=== PATIENT | female | born 1955 | race Caucasian/White ===

== ENCOUNTER → 2017-10-21 10:04 | Outpatient (CLI) | payer OTHER, SELFPAY ==
--- NOTE | 2017-10-21 10:09 | RAD_ITS ---
STUDY: X-RAY - RIGHT SHOULDER REASON FOR EXAM: Female, 62 years old. History of inflammatory polyarthropathy. TECHNIQUE: 4 view(s) of the shoulder. COMPARISON: None. FINDINGS: Normal glenohumeral articulation. There is hypertrophic osteoarthrosis of the acromioclavicular joint with inferior osseous spur formation. Normal acromion. Normal humeral head and visualized proximal humerus. There is periarticular soft tissue calcification consistent with a calcific tendinitis. Normal visualized pulmonary apex. RAD/Shoulder min 2 Views IMPRESSION: Calcific peritendinitis. Electronically Signed: Corbin Zelaya MD at 13:09 EDT Tel [phone], Service support ,
--- NOTE | 2017-10-21 10:09 | RAD_ITS ---
STUDY: X-RAY - LEFT SHOULDER REASON FOR EXAM: Female, 62 years old. Inflammatory polyarthropathy. TECHNIQUE: 4 view(s) of the shoulder. COMPARISON: None. FINDINGS: Normal glenohumeral articulation. There is degenerative arthrosis of the acromioclavicular joint without inferior osseous spur formation. Normal acromion. Normal humeral head and visualized proximal humerus. There is periarticular soft tissue calcification consistent with a calcific tendinitis. Normal visualized pulmonary apex. RAD/Shoulder min 2 Views IMPRESSION: Findings in keeping with calcific tendinitis. Electronically Signed: Corbin Zelaya MD at 13:02 EDT Tel [phone], Service support ,
== END ==
PROVIDERS: Family Provider Family Medicine; PCP Family Medicine; Visit Provider Internal Medicine Rheumatology
DX: M06.4 Inflammatory polyarthropathy (principal); M15.9 Polyosteoarthritis, unspecified; M47.897 Other spondylosis, lumbosacral region; I10 Essential (primary) hypertension; G47.33 Obstructive sleep apnea (adult) (pediatric); Z79.899 Other long term (current) drug therapy
CPT/HCPCS: 73030

== ENCOUNTER → 2018-04-17 12:31 | Outpatient (CLI) | payer OTHER, SELFPAY ==
[2018-04-17 14:40] LABS: Absolute Lymphocyte Count 1.82 X10^3/ul (0.83-4.51); Basophil# 0.02 X10^3/uL; Basophil% 0.3 % (0-1); Eosinophil# 0.26 X10^3/uL; Eosinophils% 3.5 % (0-5); Hematocrit 35.6 % (37-47); Hemoglobin 11.5 g/dl (12.0-15.0); Lymphocyte # 1.82 X10^3/ul (4.0); Lymphocyte % 24.2 % (19-41); Mean Corp Hgb Conc 32.3 g/gl (32-36); Mean Corpuscular Hgb 30.7 pg (27.0-32.0); Mean Corpuscular Volume 95.2 fL (81-99); Mean Platelet Vol. 9.8 fl (6.2-12.0); Monocyte# 0.45 X10^3/uL; Neutrophil # 4.96 X10^3/uL (2.7-7.7); Neutrophil % 65.9 % (47-70); POSITIVE COUNT NO; POSITIVE DIFFERENTIAL NO; POSITIVE MORPHOLOGY NO; Platelet Count 256 K/mm3 (150-450); RBC Distribution Width CV 15.1 % (11.6-14.6); RBC Distribution Width SD 50.2 fl (35.1-43.9); Red Blood Count 3.74 M/mm3 (4.2-5.4); White Blood Count 7.5 K/mm3 (4.4-11.0)
[2018-04-17 14:54] LABS: ALB/GLOB Ratio 1.1 RATIO (0.9-2.4); AST(SGOT) 21 U/L (15-37); Alanine Aminotransfer ALT/SGPT 20 U/L (13-56); Albumin, Serum 3.9 g/dL (3.2-5.0); Alkaline Phosphatase 91 U/L (45-117); Anion Gap 7 (5-15); BUN 14 mg/dL (7-18); BUN/Creat Ratio 22.1 RATIO (10-20); Chloride 105 mmol/L (98-107); Creatinine, Serum 0.63 mg/dL (0.55-1.02); EST Glomerular Filtration Rate 101 mL/min (>60); Est Glom Filt Rate - Afr Amer 122 mL/min (>60); Globulin 3.5 g/dL (2.2-4.2); Glucose 88 mg/dL (74-106); Potassium 3.8 mmol/L (3.5-5.1); Protein, Total 7.4 g/dL (6.4-8.2); Sodium Level 140 mmol/L (136-145)
== END ==
PROVIDERS: Family Provider Family Medicine; PCP Family Medicine; Referring Provider Internal Medicine Rheumatology; Visit Provider Internal Medicine Rheumatology
DX: M06.4 Inflammatory polyarthropathy (principal); M15.9 Polyosteoarthritis, unspecified; M47.897 Other spondylosis, lumbosacral region; I10 Essential (primary) hypertension; G47.33 Obstructive sleep apnea (adult) (pediatric); Z79.899 Other long term (current) drug therapy
CPT/HCPCS: 36415; 80053; 85025

== ENCOUNTER → 2018-07-03 08:32 | Outpatient (CLI) | payer OTHER, SELFPAY ==
[2018-07-03 10:13] LABS: Absolute Lymphocyte Count 1.36 X10^3/ul (0.83-4.51); Basophil# 0.02 X10^3/uL; Basophil% 0.5 % (0-1); Eosinophil# 0.12 X10^3/uL; Eosinophils% 3.1 % (0-5); Hematocrit 38.1 % (37-47); Hemoglobin 12.4 g/dl (12.0-15.0); Lymphocyte # 1.36 X10^3/ul (4.0); Lymphocyte % 35.1 % (19-41); Mean Corp Hgb Conc 32.5 g/gl (32-36); Mean Corpuscular Hgb 30.1 pg (27.0-32.0); Mean Corpuscular Volume 92.5 fL (81-99); Mean Platelet Vol. 9.9 fl (6.2-12.0); Monocyte# 0.33 X10^3/uL; Monocyte% 8.5 % (0-10); Neutrophil # 2.03 X10^3/uL (2.7-7.7); Neutrophil % 52.5 % (47-70); Platelet Count 249 K/mm3 (150-450); RBC Distribution Width CV 15.6 % (11.6-14.6); RBC Distribution Width SD 50.6 fl (35.1-43.9); Red Blood Count 4.12 M/mm3 (4.2-5.4); White Blood Count 3.9 K/mm3 (4.4-11.0)
[2018-07-03 10:19] LABS: POSITIVE COUNT NO; POSITIVE DIFFERENTIAL NO; POSITIVE MORPHOLOGY NO
[2018-07-03 10:31] LABS: ALB/GLOB Ratio 1.1 RATIO (0.9-2.4); AST(SGOT) 17 U/L (15-37); Alanine Aminotransfer ALT/SGPT 16 U/L (13-56); Alkaline Phosphatase 78 U/L (45-117); Anion Gap 11 (5-15); BUN 12 mg/dL (7-18); BUN/Creat Ratio 18.5 RATIO (10-20); Calcium,Total 9.1 mg/dL (8.5-10.1); Chloride 107 mmol/L (98-107); Creatinine, Serum 0.65 mg/dL (0.55-1.02); EST Glomerular Filtration Rate 98 mL/min (>60); Est Glom Filt Rate - Afr Amer 119 mL/min (>60); Globulin 3.5 g/dL (2.2-4.2); Glucose 85 mg/dL (74-106); Potassium 3.5 mmol/L (3.5-5.1); Protein, Total 7.5 g/dL (6.4-8.2); Sodium Level 144 mmol/L (136-145)
== END ==
PROVIDERS: Family Provider Family Medicine; PCP Family Medicine; Referring Provider Internal Medicine Rheumatology; Visit Provider Internal Medicine Rheumatology
DX: M06.4 Inflammatory polyarthropathy (principal); M15.9 Polyosteoarthritis, unspecified; M47.897 Other spondylosis, lumbosacral region; I10 Essential (primary) hypertension; G47.33 Obstructive sleep apnea (adult) (pediatric); Z79.899 Other long term (current) drug therapy
CPT/HCPCS: 36415; 80053; 85025

== ENCOUNTER → 2018-10-30 | Outpatient (CLI) | payer OTHER, SELFPAY ==
[2018-10-30 10:51] LABS: Absolute Lymphocyte Count 1.61 X10^3/ul (0.83-4.51); Absolute Neutrophil Count 2.8 X10^3/uL (2.0-7.7); Basophil# 0.02 X10^3/uL; Basophil% 0.4 % (0-1); Eosinophil# 0.07 X10^3/uL; Eosinophils% 1.5 % (0-5); Hematocrit 38.2 % (37-47); Hemoglobin 12.6 g/dl (12.0-15.0); Lymphocyte # 1.61 X10^3/ul (4.0); Lymphocyte % 33.6 % (19-41); Mean Corpuscular Hgb 29.9 pg (27.0-32.0); Mean Corpuscular Volume 90.7 fL (81-99); Mean Platelet Vol. 9.8 fl (6.2-12.0); Monocyte# 0.33 X10^3/uL; Monocyte% 6.9 % (0-10); Neutrophil # 2.76 X10^3/uL (2.7-7.7); Neutrophil % 57.6 % (47-70); Platelet Count 253 K/mm3 (150-450); RBC Distribution Width CV 15.2 % (11.6-14.6); RBC Distribution Width SD 49.4 fl (35.1-43.9); Red Blood Count 4.21 M/mm3 (4.2-5.4); White Blood Count 4.8 K/mm3 (4.4-11.0)
[2018-10-30 11:00] LABS: POSITIVE COUNT NO; POSITIVE DIFFERENTIAL NO; POSITIVE MORPHOLOGY NO
[2018-10-30 12:41] LABS: Free T3 2.7 pg/mL (2.18-3.98); T4 Free Direct 0.74 ng/dL (0.76-1.46); Thyroid Stim Hormone (TSH) 8.15 uIU/mL (0.358-3.74)
[2018-10-30 13:02] LABS: ALB/GLOB Ratio 1.1 RATIO (0.9-2.4); AST(SGOT) 20 U/L (15-37); Alanine Aminotransfer ALT/SGPT 18 U/L (13-56); Albumin, Serum 3.9 g/dL (3.2-5.0); Alkaline Phosphatase 86 U/L (45-117); Anion Gap 7 (5-15); BUN 11 mg/dL (7-18); Calcium,Total 9.1 mg/dL (8.5-10.1); Chloride 105 mmol/L (98-107); Creatinine, Serum 0.74 mg/dL (0.55-1.02); EST Glomerular Filtration Rate 85 mL/min (>60); Est Glom Filt Rate - Afr Amer 102 mL/min (>60); Globulin 3.6 g/dL (2.2-4.2); Glucose 95 mg/dL (74-106); Potassium 3.5 mmol/L (3.5-5.1); Protein, Total 7.5 g/dL (6.4-8.2); Sodium Level 140 mmol/L (136-145)
[2018-10-31 09:40] LABS: Thyroid Peroxidase AB 13 IU/mL (0-34)
== END | disposition home or self-care (01) ==
PROVIDERS: Internal Medicine; Family Provider Family Medicine; PCP Family Medicine; Referring Provider Internal Medicine Rheumatology; Visit Provider Internal Medicine Rheumatology
DX: M06.4 Inflammatory polyarthropathy (principal); M15.9 Polyosteoarthritis, unspecified; M47.897 Other spondylosis, lumbosacral region; I10 Essential (primary) hypertension; G47.33 Obstructive sleep apnea (adult) (pediatric); E03.9 Hypothyroidism, unspecified; Z79.899 Other long term (current) drug therapy
CPT/HCPCS: 36415; 80053; 84439; 84443; 84481; 85025; 86376

== ENCOUNTER 2018-12-29 19:09 | Observation (INO) | payer OTHER, SELFPAY ==
[2018-12-29] VITALS (10 sets, daily range): BP systolic 115–162; BP diastolic 53–75; PULSE 74–79; RESP 12–21; TEMP 36.8–37; O2SAT 95–100; BMI 53.1; BMI 52.8
--- NOTE | 2018-12-29 19:35 | CT_ITS ---
STUDY: CT BRAIN WITHOUT CONTRAST REASON FOR EXAM: Female, 63 years old. Headache, weakness RADIATION DOSAGE (If Supplied By Facility): CTDIvol = ( 44.99 ) mGy, DLP = ( 779.24 ) mGycm TECHNIQUE: Transaxial CT imaging of the brain was performed without administration of intravenous contrast material. Individualized dose optimization techniques were used for this CT. COMPARISON: No relevant priors. FINDINGS: Normal soft tissue structures. Normal calvarium. Normal size ventricles and extra-axial spaces for the patient's age. Normal white matter tracts of the cerebral hemispheres. Normal basal ganglia and thalami. Normal brainstem. Normal cerebellum. There is no intracranial hemorrhage. There are no findings of an acute ischemic infarction. Normal visualized paranasal sinuses. CT/Brain/Head without Contrast IMPRESSION: Normal unenhanced CT scan of the brain. If there is still clinical concern for acute infarct MRI brain follow-up would be recommended. Electronically Signed: Max Patterson, at 20:50 EDT Tel , Service support ,
--- NOTE | 2018-12-29 19:35 | EKG12_ITS ---
Test Reason : CP Blood Pressure : / mmHG Vent. Rate : 082 BPM Atrial Rate : 082 BPM P-R Int : 158 ms QRS Dur : 078 ms QT Int : 364 ms P-R-T Axes : 059 040 016 degrees QTc Int : 425 ms Normal sinus rhythm Nonspecific ST abnormality Abnormal ECG Confirmed by JAVIER CHURCH, GORAN ([id number]), electronic news gathering editor ALFONSO WEISS ([id number]) on 01/01/2019 11:44:45 AM Referred By: Kole Stern Confirmed By:GORAN HERRERA MD
[2018-12-29] MEDS: Aspirin 81 MG TAB.CHEW 324 MG PO (19:48)
[2018-12-29 20:03] LABS: Absolute Lymphocyte Count 0.96 X10^3/uL (0.83-4.51); Absolute Neutrophil Count 4.6 X10^3/uL (2.0-7.7); Basophil# 0.01 X10^3/uL; Basophil% 0.2 % (0-1); Eosinophil# 0.07 X10^3/uL; Eosinophils% 1.2 % (0-5); Hematocrit 38.4 % (37-47); Hemoglobin 12.8 g/dL (12.0-15.0); Lymphocyte # 0.96 X10^3/ul (4.0); Lymphocyte % 15.9 % (19-41); Mean Corp Hgb Conc 33.3 g/dL (32-36); Mean Corpuscular Hgb 30.6 pg (27.0-32.0); Mean Corpuscular Volume 91.9 fL (81-99); Mean Platelet Vol. 9.2 fl (6.2-12.0); Monocyte% 6.6 % (0-10); NRBC Flagged by Analyzer 0 % (0-5); Neutrophil # 4.59 X10^3/uL (2.7-7.7); Neutrophil % 75.8 % (47-70); Platelet Count 197 K/mm3 (150-450); RBC Distribution Width CV 14.6 % (11.6-14.6); RBC Distribution Width SD 49.3 fl (35.1-43.9); Red Blood Count 4.18 M/mm3 (4.2-5.4); White Blood Count 6.1 K/mm3 (4.4-11.0)
[2018-12-29 20:22] LABS: Anion Gap 6 (5-15); BUN 14 mg/dL (7-18); BUN/Creat Ratio 20.8 RATIO (10-20); Calcium,Total 8.8 mg/dL (8.5-10.1); Chloride 106 mmol/L (98-107); Creatinine, Serum 0.67 mg/dL (0.55-1.02); EST Glomerular Filtration Rate 94 mL/min (>60); Est Glom Filt Rate - Afr Amer 113 mL/min (>60); Estimated Creatinine Clearance 160.03 ml/min; Glucose 89 mg/dL (74-106); Potassium 3.6 mmol/L (3.5-5.1); Sodium Level 139 mmol/L (136-145)
[2018-12-29 20:29] LABS: Bacteria 0 SEEN /hpf (None Seen); Mucous, Urine 0 SEEN /hpf (<or=2+); Red Blood Cells-Urine 0 SEEN /hpf (0-5); Squamous Epithelial Cells - UA 0 SEEN /hpf (5-10); White Blood Cells 0 SEEN /hpf (0-5)
[2018-12-29 20:30] LABS: Color, Urine Yellow (Yellow); Glucose, Dipstick Normal (Normal); Ketone-Dipstick Negative (Negative); Leukocyte Esterase-Dipstick Negative /ul (Negative); Nitrite-Dipstick Negative (Negative); Occult Blood-Urine Negative /ul (Negative); Protein-Dipstick Negative (Negative); Urine Bilirubin Dipstick Negative (Negative); Urine Clarity Clear (Clear); Urine Urobilinogen Normal (Normal)
--- NOTE | 2018-12-29 20:38 | RAD_ITS ---
STUDY: X-RAY CHEST REASON FOR EXAM: Female, 63 years old. Chest pain TECHNIQUE: AP chest COMPARISON: None. FINDINGS: The lungs are clear and expanded. There is no demonstrated pleural abnormality. There is cardiomegaly. There are degenerative changes of both shoulders. Normal mediastinum and conrado. Normal visualized pulmonary arteries. Normal visualized aortic arch and descending thoracic aorta. Normal visualized thoracic spine. Normal visualized ribs, clavicles, and shoulders. There is no demonstrated abnormality of the visualized soft tissue structures of the upper abdomen. RAD/Chest 1 View (Portable) IMPRESSION: Mild cardiomegaly Electronically Signed: Max Patterson, at 20:52 EDT Tel , Service support ,
--- NOTE | 2018-12-29 21:42 | ED.VISSUMM ---
- ER Visit Summary Date of Service: 12/29/18 Chief Complaint: Chest pain History of Present Illness: The patient is a 63 F with chest pain for a week. It feels like a heaviness. Associated with shortness of breath. Worse with the weather. She also has a headache for several days and reports some dysuria. She had a stress test years ago which was unremarkable. Denies any history of coronary disease. She does report a history of hypertension. Denies smoking. Denies any history of PE or aortic disease. Denies any neurologic symptoms like weakness or numbness or speech changes. Physical Examination: Afebrile and vital signs unremarkable. Alert and oriented. No acute distress. Head and neck atraumatic. Cranial nerves grossly intact. Heart regular rate and rhythm. Lungs clear. Abdomen soft. Extremities nontender. Good strength and sensation. Skin unremarkable. Test Results: EKG showed sinus rhythm at a rate of 82. Nonspecific ST changes. No sign of infarction. CBC, BMP, troponin, urinalysis unremarkable. Chest x-ray showed cardiomegaly. CT brain was normal. Emergency Department Course and Treatment: Patient treated with aspirin. She was placed on a monitor. Her work-up was unremarkable. Patient will meet criteria for observation in the hospital for further cardiac evaluation. She was discussed with the hospitalist and will be observed. Treatment Plan: As above Disposition: Admission Impression: 1. Chest pain 2. Headache This note was generated with [email or web address] software. It may contain incorrect words, spelling, and punctuation that were not noted in review of the chart prior to signing ED Disposition - Plan for ED Patient: Referrals: Nikolay Josue MD [Primary Care Provider] -
[2018-12-29] MEDS: Acetaminophen 500 MG Tablet 1000 MG PO (22:02)
--- NOTE | 2018-12-29 23:13 | PCM.HP.STD ---
Problem List (1) Hypertension Status: Chronic (2) Hypothyroidism Status: Chronic (3) Rheumatoid arthritis Status: Chronic (4) Atypical chest pain Status: Acute (5) Recurrent UTI Status: Chronic History of Present Illness Date of Admission: 12/29/18 Chief Complaint: Headache and chest pain The patient is a 63 year old F with multiple comorbidities as listed above came to ER with chest pain for about 2 to 3 weeks. Feels like heaviness midsternal position without radiation, intermittent comes with exertion and relieved with rest associated with shortness of breath. Patient denies any history of coronary artery disease. She is on Lasix for leg swelling but unclear whether she has history of CHF or not. She also complained of headache which is much better. CT head was done was normal. She also history of recurrent UTI, about 3 times this year and complaint of mild burning micturition and concern of UTI/kidney infection. UA is negative. Fever or chills. In ED, EKG was done and reported as normal sinus rhythm at 82 bpm. First troponin negative. [] Past Medical History Past Medical History (Chronic Problems): Chronic Problems Hypertension (Chronic) Hypothyroidism (Chronic) Rheumatoid arthritis (Chronic) Recurrent UTI (Chronic) Allergies amoxicillin Allergy (Verified 12/29/18 19:14) Rash Home Medications: Ambulatory Orders Medication Instructions Recorded Amlodipine Besylate 1 tab PO DAILY 12/29/18 Folic Acid 2 tab PO DAILY 12/29/18 Furosemide [Lasix] 1 tab PO BREAKFAST 12/29/18 Furosemide [Lasix] 20 mg PO QHS 12/29/18 Hydroxychloroquine [Plaquenil] 1 tab PO BID 12/29/18 Methotrexate Sodium [Methotrexate] 1 tab PO QWEEK 12/29/18 Thyroid [[place] Thyroid] 1 tab PO DAILY 12/29/18 Smoking Status: Never smoker - *Family History Paternal History Items: Heart Disease - of heart disease Review of Systems Constitutional: Reports: Chills. Denies: Fever, Weight Change HEENT: Denies: Head Aches, Sinus Congestion, Sinus Drainage Cardiovascular: Reports: Chest Pain, Chest Tightness, Heaviness. Denies: Palpitations Respiratory: Reports: Shortness of breath upon exertion. Denies: Cough, Shortness of breath at rest, Sputum production Gastrointestinal: Denies: Abdominal Pain, Nausea, Vomiting Genitourinary: Reports: Dysuria - Patient states sometimes her urine back but not very clear. Denies increased frequency or urgency., -. Denies: Frequency, Hesitancy, Urgency Musculoskeletal: Denies: Joint Pain, Joint Tenderness Skin: Denies: Rash, Wounds Neurological: Reports: Balance problems. Denies: Focal weakness, Numbness, Tingling Psychiatric: Denies: Anxiety, Depression, Homicidal Ideations, Suicidal Ideations Hematologic/ Lymphatic: Denies: Easy Bruising, Easy Bleeding VTE Information - Inpt Only VTE Present on Admission: No VTE Mechan Device Prophylaxis: None VTE Pharm Prophylaxis ordered?: Yes Patient Problems: Active and Suspected Problems Atypical chest pain (Acute) - Physical Exam General: Alert, Oriented x3, Cooperative HEENT: Atraumatic, PERRLA, EOMI, Normocephalic Oral: Dry Mucosa Neck: Supple, No JVD, Negative Carotid Bruits Lungs: Clear to auscultation, Normal air movement Cardiovascular: Regular rate, Regular Rhythm, Normal S1, Normal S2, No murmurs Abdomen: Bowel Sounds Present, Soft, Non Tender, Non-Distended, - - No suprapubic tenderness. No renal angle tenderness. Extremities: Capillary Refill Less than 3 Seconds, Edema - Bilateral pedal edema Skin: No rashes, No breakdown Musculoskeletal: No Tenderness to Palpation of Joints or Extremities, Arthritic Changes Neurological: Cranial nerves II-XII grossly intact, Deep Tendon Reflexes 2+/4 and Symmetrical, Neuro grossly intact Psych/Mental Status: Normal Affect, Appropriate Vital Signs Temp Pulse Resp BP Pulse Ox 98.3 F 75 19 H 133/66 H 98 12/29/18 22:49 12/29/18 22:18 12/29/18 22:18 12/29/18 22:18 12/29/18 22:18 Oxygen Flow Rate (L/min) 2 Oxygen Delivery Method Room Air Weight: 263 lb 7.238 oz Body Mass Index (BMI) 53.1 Laboratory Tests Past 24 Hrs 12/29/18 12/29/18 12/29/18 19:53 19:53 20:24 WBC 6.1 RBC 4.18 L Hgb 12.8 Hct 38.4 MCV 91.9 MCH 30.6 MCHC 33.3 RDW Std Deviation 49.3 H RDW Coeff of Noe 14.6 Plt Count 197 MPV 9.2 Immature Gran % (Auto) 0.300 Neut % (Auto) 75.8 H Lymph % (Auto) 15.9 L [place] % (Auto) 6.6 Eos % (Auto) 1.2 Baso % (Auto) 0.2 Absolute Neuts (auto) 4.6 Absolute Lymphs (auto) 0.96 Nucleated RBC % 0 Sodium 139 Potassium 3.6 Chloride 106 Carbon Dioxide 27.0 Anion Gap 6 BUN 14 Creatinine 0.67 Estim Creat Clear Calc 160.03 Est GFR (MDRD) Af Amer 113 Est GFR (MDRD) Non-Af 94 BUN/Creatinine Ratio 20.8 H Glucose 89 Calcium 8.8 Troponin I < 0.015 Urine Color Yellow Urine Clarity Clear Urine pH 7.0 Ur Specific [place] 1.010 Urine Protein Negative Urine Glucose (UA) Normal Urine Ketones Negative Urine Occult Blood Negative Urine Nitrite Negative Urine Bilirubin Negative Urine Urobilinogen Normal Ur Leukocyte Esterase Negative Urine RBC 0 SEEN Urine WBC 0 SEEN Ur Squamous Epith Cells 0 SEEN Urine Bacteria 0 SEEN Urine Mucus 0 SEEN Assessment/Plan All Active Problems Atypical chest pain (Acute) This 63-year-old female with multiple comorbidities admitted with chest pain and headache associated with shortness of breath. 1. Chest pain consistent with angina: Patient is being admitted on PCU. Cardiac telemetry. Cycle troponin. If negative, Lexiscan stress test tomorrow morning. EKG shows normal sinus rhythm at 82 bpm. Patient first 2 troponins are negative. 2. Mild dysuria with history of recurrent UTI and possible history of pyelonephritis: UA is negative with 0 WBC, 0 bacteria and 0 squamous epithelial cells. With patient's high concern of recurrent UTI and intermittent mild burning micturition (not every urination), urine culture is ordered. Patient does not need antibiotic. 3. Headache, nonspecific: CT head is normal. Rheumatoid arthritis: Patient is on methotrexate, folic acid and hydroxychloroquine which are continued. Rheumatoid arthritis further put his risk for coronary artery disease. 4. Other comorbidities include hypertension and dyslipidemia and leg swelling: It is not clear that patient has history of CHF but she is on diuretics. BNP and 2D echo is also ordered. DVT prophylaxis: Lovenox 40 mg subcu daily. Laboratory Results 12/29/18 19:53: WBC 6.1, RBC 4.18 L, Hgb 12.8, Hct 38.4, MCV 91.9, MCH 30.6, MCHC 33.3, RDW Std Deviation 49.3 H, RDW Coeff of Noe 14.6, Plt Count 197, MPV 9.2, Immature Gran % (Auto) 0.300, Neut % (Auto) 75.8 H, Lymph % (Auto) 15.9 L, [place] % (Auto) 6.6, Eos % (Auto) 1.2, Baso % (Auto) 0.2, Absolute Neuts (auto) 4.6, Absolute Lymphs (auto) 0.96, Nucleated RBC % 0 12/29/18 19:53: Sodium 139, Potassium 3.6, Chloride 106, Carbon Dioxide 27.0, Anion Gap 6, BUN 14, Creatinine 0.67, Estim Creat Clear Calc 160.03, Est GFR (MDRD) Af Amer 113, Est GFR (MDRD) Non-Af 94, BUN/Creatinine Ratio 20.8 H, Glucose 89, Calcium 8.8, Troponin I < 0.015 12/29/18 20:24: Urine Color Yellow, Urine Clarity Clear, Urine pH 7.0, Ur Specific [place] 1.010, Urine Protein Negative, Urine Glucose (UA) Normal, Urine Ketones Negative, Urine Occult Blood Negative, Urine Nitrite Negative, Urine Bilirubin Negative, Urine Urobilinogen Normal, Ur Leukocyte Esterase Negative, Urine RBC 0 SEEN, Urine WBC 0 SEEN, Ur Squamous Epith Cells 0 SEEN, Urine Bacteria 0 SEEN, Urine Mucus 0 SEEN 12/29/18 23:15: Troponin I < 0.015 Clinical Impression(s) from Imaging Studies Brain CT 12/29/18 19:35 IMPRESSION: Normal unenhanced CT scan of the brain. If there is still clinical concern for acute infarct MRI brain follow-up would be recommended. Chest X-Ray 12/29/18 20:38 IMPRESSION: Mild cardiomegaly Code Visit OBSV E&M: 40630 Initial observation care L3
[2018-12-30] VITALS (7 sets, daily range): BP systolic 128–140; BP diastolic 59–110; PULSE 61–72; RESP 15–16; TEMP 36.6; O2SAT 95–98
--- NOTE | 2018-12-30 00:03 | EKG12_ITS ---
Test Reason : CP ADMISSION Blood Pressure : / mmHG Vent. Rate : 069 BPM Atrial Rate : 069 BPM P-R Int : 164 ms QRS Dur : 086 ms QT Int : 378 ms P-R-T Axes : 060 034 -29 degrees QTc Int : 405 ms Normal sinus rhythm ST & T wave abnormality, consider inferior ischemia Abnormal ECG Confirmed by JAVIER CHURCH, GORAN ([id number]), school photograph editor SERA MAN ([id number]) on 01/03/2019 2:27:33 PM Referred By: Kole Stern Confirmed By:GORAN HERRERA MD
--- NOTE | 2018-12-30 00:09 | ECHOCS_ITS ---
Reason For Study: LE Edema Procedure This was a 2D Doppler, Color Flow transthoracic echocardiogram. The study was technically difficult. Contrast injection was performed. Exam performed portable in patient room. Left Ventricle Based upon the 2D echocardiographic and contrast enhanced images obtained there appears to be grossly normal left ventricular size, wall motion, and systolic function. The estimated ejection fraction is 65 %. No evidence for diastolic dysfunction. Right Ventricle Normal RV size. Normal systolic function. Atria The left atrium is mildly enlarged. Normal right atrium. No doppler evidence for ASD. Mitral Valve There is moderate to severe mitral annular calcification. Extension of the mitral annular calcification onto the mitral valve leaflets. Mild mitral valve stenosis. Trivial mitral valve insufficiency. Tricuspid Valve Normal tricuspid valve. Trivial tricuspid valve insufficiency. Right ventricular systolic pressure estimated to be 36 mmHg. Aortic Valve The aortic valve is not well visualized. Pulmonic Valve The pulmonic valve is not well visualized. Great Vessels The aortic root is not well visualized. Pericardium/Pleural No pericardial effusion. Medication Diluted definity 2ml given slow IV push to enhance endocardial definition. MMode/2D Measurements & Calculations LVIDd: 4.6 cm IVSd: 1.2 cm LAV(MOD-bp): 74.1 ml LVIDs: 2.8 cm LVPWd: 1.3 cm FS: 37.9 % LAV(MOD-bp) Indexed: 36.0 ml/m2 LAV(MOD-sp2): 72.7 ml LAV(MOD-sp4): 76.4 ml LA A4 area: 23.5 cm2 Time Measurements MV dec time: 0.25 sec Doppler Measurements & Calculations MV E max peter: 112.9 cm/sec Lat Peak E' Peter: 10.6 cm/sec Med Peak E' Peter: 8.5 cm/sec MV A max peter: 117.2 cm/sec E/E' lat: 10.7 E/E' med: 13.4 MV E/A: 0.96 MV V2 max: 122.3 cm/sec MV P1/2t max peter: 115.6 cm/sec Ao V2 max: 177.2 cm/sec MV max P.0 mmHg MV P1/2t: 114.9 msec Ao max P.6 mmHg MV V2 mean: 68.6 cm/sec MV mean P.2 mmHg MV dec slope: 294.5 cm/sec2 MV V2 VTI: 40.5 cm MVA(P1/2t): 1.9 cm2 LV V1 max: 131.4 cm/sec TR max peter: 262.9 cm/sec LV V1 max P.9 mmHg TR max P.7 mmHg Interpretation Summary The study was technically difficult. Contrast injection was performed. Based upon the 2D echocardiographic and contrast enhanced images obtained there appears to be grossly normal left ventricular size, wall motion, and systolic function. The estimated ejection fraction is 65 %. The left atrium is mildly enlarged. There is moderate to severe mitral annular calcification. Extension of the mitral annular calcification onto the mitral valve leaflets. Mild mitral valve stenosis. Trivial mitral valve insufficiency. Trivial tricuspid valve insufficiency. Right ventricular systolic pressure estimated to be 36 mmHg. No evidence for diastolic dysfunction. Ordering Physician: Kole Stern Referring Physician: Kole Stern Performed By: Jacky Mason RCS
[2018-12-30 02:17] LABS: Anion Gap 4 (5-15); BUN 13 mg/dL (7-18); BUN/Creat Ratio 22.6 RATIO (10-20); Calcium,Total 8.1 mg/dL (8.5-10.1); Chloride 110 mmol/L (98-107); Creatinine, Serum 0.57 mg/dL (0.55-1.02); EST Glomerular Filtration Rate 113 mL/min (>60); Est Glom Filt Rate - Afr Amer 136 mL/min (>60); Estimated Creatinine Clearance 186.69 ml/min; Glucose 88 mg/dL (74-106); Potassium 3.2 mmol/L (3.5-5.1); Sodium Level 140 mmol/L (136-145)
--- NOTE | 2018-12-30 05:55 | EKG12_ITS ---
Test Reason : AM EKG Blood Pressure : / mmHG Vent. Rate : 062 BPM Atrial Rate : 062 BPM P-R Int : 172 ms QRS Dur : 086 ms QT Int : 440 ms P-R-T Axes : 061 038 -12 degrees QTc Int : 446 ms Normal sinus rhythm Nonspecific ST abnormality Abnormal ECG Confirmed by JAVIER CHURCH, GORAN ([id number]), greeting card editor SERA MAN ([id number]) on 01/03/2019 2:27:09 PM Referred By: Kole Stern Confirmed By:GORAN HERRERA MD
[2018-12-30 08:54] LABS: Cholesterol 117 mg/dL (200); High Density Lipoprotein 38 mg/dL; Magnesium 2.2 mg/dL (1.6-2.6); T4 Free Direct 0.74 ng/dL (0.76-1.46); Thyroid Stim Hormone (TSH) 1.11 uIU/mL (0.358-3.74); Triglycerides 58 mg/dL; Very Low Density Lipoprotein 12 mg/dL (5-40)
[2018-12-30] MEDS: Folic Acid 1 MG Tablet 2 MG PO (08:55)
[2018-12-30] MEDS: Hydroxychloroquine 200 MG Tablet PO (08:55)
[2018-12-30] MEDS: Thyroid 60 MG Tablet 90 MG PO (08:55)
[2018-12-30] MEDS: amLODIPine 5 MG Tablet PO (11:08)
[2018-12-30] MEDS: Furosemide 40 MG Tablet PO (11:09)
--- NOTE | 2018-12-30 11:21 | STRESSREP ---
Stress Test Report Date: 12-30-18 Procedure: Pharmacologic stress nuclear imaging study Indications: Chest pain Consent: Per the patient Procedure: The patient underwent pharmacologic (Regadenoson) evaluation with a peak heart rate of 88 beats per minute (56 %predicted maximal heart rate) and a peak blood pressure of 156/66 mmHg. The baseline ECG demonstrated normal sinus rhythm; nonspecific ST segment abnormality. The peak pharmacologic ECG demonstrated continued nonspecific ST segment abnormality. There were no cardiac dysrhythmias pretest, during pharmacologic infusion, or recovery. There was no complaint of chest discomfort during pharmacologic infusion or recovery. The examination was discontinued secondary to completion of protocol. Impression: 1. Pharmacologic (Regadenoson) evaluation 2. Peak pharmacologic ECG with continued nonspecific ST segment abnormality. 3. There were no cardiac dysrhythmias pretest, during pharmacologic infusion, or recovery. 4. Nuclear images pending Myocardial perfusion imaging study: Technique: The patient was injected with 14.6 millicuries of technetium 99m Cardiolite and subsequently rest SPECT Cardiolite nuclear imaging was obtained in the horizontal long, vertical long, and short axis views. The patient underwent pharmacologic (Regadenoson) evaluation with a peak heart rate of 88 beats per minute (56 % percent predicted maximal heart rate) and a peak blood pressure of 156/66 mmHg. The patient was injected with 43.1 millicuries of technetium 99m Cardiolite and subsequently stress SPECT Cardiolite nuclear imaging was obtained in the horizontal long, vertical long, and short axis views. A gated Cardiolite study at peak stress was obtained. Interpretation: Rest and stress SPECT Cardiolite nuclear imaging status post realignment, normalization, and attenuation correction demonstrate relative uniform tracer uptake and myocardial perfusion appearing within normal limits. There is end systolic thickening and brightening. The gated Cardiolite study demonstrates myocardial thickening and inward wall motion. The reported LVEF is 64 %. Impression: 1. Rest and stress SPECT Cardiolite nuclear imaging demonstrate relative uniform tracer uptake and myocardial perfusion appearing within normal limits. 2. The gated Cardiolite study reports an LVEF of 64 %. This note was generated with [employer] software. It may contain incorrect words, spelling, and punctuation that were not noted in checking the note before signing.
--- NOTE | 2018-12-30 11:46 | DCINST_ITS ---
- Discharge Diagnoses Current Active Problems: Current Active and Chronic Problems Hypertension (Chronic) Hypothyroidism (Chronic) Rheumatoid arthritis (Chronic) Atypical chest pain (Acute) Recurrent UTI (Chronic) You will use the following diet at home:: Cardiac Discharge Activity: Return to Normal Activity Call your doctor if you observe: Shortness of breath, Dizziness, Fainting spells, Chest pain Allergies/Adverse Reactions: Allergies amoxicillin Allergy (Verified 12/29/18 19:14) Rash Medications to take at Discharge Amlodipine Besylate 1 tab PO DAILY 12/29/18 Folic Acid 2 tab PO DAILY 12/29/18 Furosemide [Lasix] 1 tab PO BREAKFAST 12/29/18 Furosemide [Lasix] 20 mg PO QHS 12/29/18 Hydroxychloroquine [Plaquenil] 1 tab PO BID 12/29/18 Methotrexate Sodium [Methotrexate] 8 tab PO QWEEK 12/29/18 Thyroid [[place] Thyroid] 1 tab PO DAILY 12/29/18 Test Results: Test results from this visit will be discussed in further detail at your follow- up appointment, if applicable. Please Follow Up With: Polina Gilbert DO When: 3-5 Days Proposed Discharge Date: 12/30/18
--- NOTE | 2018-12-30 12:50 | DS.PCM_ITS ---
<Ana Petersen - Last Filed: 12/30/18 13:11> Discharge Date and Diagnosis Date of Admission: 12/29/18 Date of Discharge: 12/30/18 - Primary Discharge Diagnosis Active and Suspected Problems 1. Chest pressure, ACS ruled out 2. Mild hypokalemia 3. Acute on chronic headache 4. Rheumatoid arthritis 5. Hypertension 6. Hyperlipidemia 7. History of recurrent UTI 8. Hypothyroidism - Secondary Discharge Diagnosis Chronic Problems Hypertension (Chronic) Hypothyroidism (Chronic) Rheumatoid arthritis (Chronic) Recurrent UTI (Chronic) Hospital Course and Treatment Imaging Results: Diagnostic Data Brain CT 12/29/18 19:35 IMPRESSION: Normal unenhanced CT scan of the brain. If there is still clinical concern for acute infarct MRI brain follow-up would be recommended. Electronically Signed: Max Patterson, at 20:50 EDT Tel , Service support , Chest X-Ray 12/29/18 20:38 IMPRESSION: Mild cardiomegaly Electronically Signed: Max Patterson, at 20:52 EDT Tel , Service support , Operations: None Procedures: 2-D Echocardiogram, Stress test Summary of Care Provided: The patient is a 63 year old F admitted 12/29/18 due to chest pressure 1. Chest pressure, ACS ruled out- troponin negative. EKG without ST-T changes. Stress test without evidence of ischemia. Echocardiogram demonstrated EF 65%, moderate to severe mitral annular calcification, mild mitral valve stenosis, RVSP estimated to be 36 mmHg. Follow-up with primary care provider in 1 week. 2. Mild hypokalemia- replaced per protocol. 3. Acute on chronic headache- Brain CT unremarkable. Discussed with patient if he continues to have headaches, she may need MRI brain as outpatient. Follow up with PCP. 4. Rheumatoid arthritis-continue methotrexate regimen. 5. Hypertension-stable, continue home amlodipine regimen. 6. Hyperlipidemia- not on regimen. 7. History of recurrent UTI- UA negative. 8. Hypothyroidism-TSH 1.1. Free T4 0.74. Patient seen and examined prior to discharge. Physical assessment as noted below. Patient is stable for discharge with follow up recommendations as noted above. This patient was seen by FIFI Puentes under the supervision of Dr. Garcia. - Physical Exam General: Alert, Oriented x3, Cooperative HEENT: Atraumatic, PERRLA, EOMI, Normocephalic Neck: Supple, No JVD, Negative Carotid Bruits Lungs: Clear to auscultation, Normal air movement Cardiovascular: Regular rate, Regular Rhythm, Normal S1, Normal S2, No murmurs Abdomen: Bowel Sounds Present, Soft, Non Tender, Non-Distended, Obese Extremities: No clubbing, No cyanosis, No edema, Capillary Refill Less than 3 Seconds Skin: No rashes, No breakdown Musculoskeletal: No Tenderness to Palpation of Joints or Extremities Neurological: Cranial nerves II-XII grossly intact, Neuro grossly intact Psych/Mental Status: Normal Affect, Appropriate Vital Signs Temp Pulse Resp BP Pulse Ox 97.8 F 72 16 140/110 H 98 12/30/18 08:54 12/30/18 11:07 12/30/18 08:54 12/30/18 08:54 12/30/18 08:54 Oxygen Flow Rate (L/min) 2 Oxygen Delivery Method Room Air Weight: 260 lb 2.327 oz Body Mass Index (BMI) 52.8 Intake and Output for Last 24 Hours 12/28/18 12/29/18 12/30/18 23:59 23:59 23:59 Intake Total 480 / 480 Balance 480 / 480 Laboratory Tests Past 24 Hrs 12/29/18 12/29/18 12/29/18 19:53 19:53 20:24 WBC 6.1 RBC 4.18 L Hgb 12.8 Hct 38.4 MCV 91.9 MCH 30.6 MCHC 33.3 RDW Std Deviation 49.3 H RDW Coeff of Noe 14.6 Plt Count 197 MPV 9.2 Immature Gran % (Auto) 0.300 Neut % (Auto) 75.8 H Lymph % (Auto) 15.9 L [place] % (Auto) 6.6 Eos % (Auto) 1.2 Baso % (Auto) 0.2 Absolute Neuts (auto) 4.6 Absolute Lymphs (auto) 0.96 Nucleated RBC % 0 Sodium 139 Potassium 3.6 Chloride 106 Carbon Dioxide 27.0 Anion Gap 6 BUN 14 Creatinine 0.67 Estim Creat Clear Calc 160.03 Est GFR (MDRD) Af Amer 113 Est GFR (MDRD) Non-Af 94 BUN/Creatinine Ratio 20.8 H Glucose 89 Calcium 8.8 Magnesium Troponin I < 0.015 Triglycerides Cholesterol LDL Cholesterol VLDL Cholesterol HDL Cholesterol TSH Free T4 Urine Color Yellow Urine Clarity Clear Urine pH 7.0 Ur Specific [place] 1.010 Urine Protein Negative Urine Glucose (UA) Normal Urine Ketones Negative Urine Occult Blood Negative Urine Nitrite Negative Urine Bilirubin Negative Urine Urobilinogen Normal Ur Leukocyte Esterase Negative Urine RBC 0 SEEN Urine WBC 0 SEEN Ur Squamous Epith Cells 0 SEEN Urine Bacteria 0 SEEN Urine Mucus 0 SEEN 12/29/18 12/30/18 12/30/18 23:15 01:33 07:08 WBC RBC Hgb Hct MCV MCH MCHC RDW Std Deviation RDW Coeff of Noe Plt Count MPV Immature Gran % (Auto) Neut % (Auto) Lymph % (Auto) [place] % (Auto) Eos % (Auto) Baso % (Auto) Absolute Neuts (auto) Absolute Lymphs (auto) Nucleated RBC % Sodium 140 Potassium 3.2 L Chloride 110 H Carbon Dioxide 26.0 Anion Gap 4 L BUN 13 Creatinine 0.57 Estim Creat Clear Calc 186.69 Est GFR (MDRD) Af Amer 136 Est GFR (MDRD) Non-Af 113 BUN/Creatinine Ratio 22.6 H Glucose 88 Calcium 8.1 L Magnesium 2.2 Troponin I < 0.015 < 0.015 Triglycerides 58 Cholesterol 117 LDL Cholesterol 67 VLDL Cholesterol 12 HDL Cholesterol 38 L TSH 1.11 Free T4 0.74 L Urine Color Urine Clarity Urine pH Ur Specific [place] Urine Protein Urine Glucose (UA) Urine Ketones Urine Occult Blood Urine Nitrite Urine Bilirubin Urine Urobilinogen Ur Leukocyte Esterase Urine RBC Urine WBC Ur Squamous Epith Cells Urine Bacteria Urine Mucus Discharge Diet: Low fat/ Low Cholesterol Discharge Activity: Return to Normal Activity Call your doctor if you observe: Shortness of breath, Dizziness, Fainting spells, Chest pain Home Medications: Medications to take at Discharge Amlodipine Besylate 1 tab PO DAILY 12/29/18 Folic Acid 2 tab PO DAILY 12/29/18 Furosemide [Lasix] 1 tab PO BREAKFAST 12/29/18 Furosemide [Lasix] 20 mg PO QHS 12/29/18 Hydroxychloroquine [Plaquenil] 1 tab PO BID 12/29/18 Methotrexate Sodium [Methotrexate] 8 tab PO QWEEK 12/29/18 Thyroid [[place] Thyroid] 1 tab PO DAILY 12/29/18 Please Follow Up With: Polina Gilbert DO When: 3-5 Days Disposition: Home Minutes spent on discharge:: 35 Patient Condition:: Stable Medical Necessity - Tobacco Use Smoking Status: Never smoker Tobacco Use: Non-smoker Meaningful Use Info Meaningful Use Diagnoses (Choose all that apply): None applicable <Waleska Garcia - Last Filed: 12/30/18 13:41> Discharge Date and Diagnosis - Secondary Discharge Diagnosis Chronic Problems Hypertension (Chronic) Hypothyroidism (Chronic) Rheumatoid arthritis (Chronic) Recurrent UTI (Chronic) Hospital Course and Treatment Imaging Results: 12/30/18 05:55 Nuclear Stress Test - Chemical [NM] AM (NON MEDS) Summary of Care Provided: Patient seen by Ana CALIX under my supervision The patient is a 63 year old F with a PMH as listed who was admitted with a complaint of chest pain and pressure. Troponins x 3 were negative, and EKG showed no acute ST changes. 2D echo done showed EF of 65% with normal left ventricular wall size, motion and systolic function. She had a stress test on 02/26/2019 which was negative. She remained stable and was discharged home on 12/30/2018. She is to follow-up with her primary care doctor. Patient seen and examined. She had no complaints of systems otherwise negative. Labs and vitals reviewed. Home medication reviewed and reconciled. o/e: Vital Signs Height 4 ft 11 in Weight: 260 lb 2.327 oz Weight in Pounds 260.1 lbs Pulse Ox 98 Temperature 97.8 F Pulse Rate 72 Respiratory Rate 16 Blood Pressure [BP] 128/69 Blood Pressure 140/110 Blood Pressure Position [BP] Semi-Fowlers Blood Pressure Position Sitting [] General: Alert, Oriented x3, Cooperative HEENT: Atraumatic, PERRLA, EOMI, Normocephalic Oral: Dry Mucosa Neck: Supple, No JVD, Negative Carotid Bruits Lungs: Clear to auscultation, Normal air movement Cardiovascular: Regular rate, Regular Rhythm, Normal S1, Normal S2, No murmurs Abdomen: Bowel Sounds Present, Soft, Non Tender, Non-Distended, Extremities: Capillary Refill Less than 3 Seconds, mild Bilateral pedal edema Skin: No rashes, No breakdown Musculoskeletal: No Tenderness to Palpation of Joints or Extremities, Arthritic Changes Neurological: Cranial nerves II-XII grossly intact, Deep Tendon Reflexes 2+/4 and Symmetrical, Neuro grossly intact Psych/Mental Status: Normal Affect, Appropriate Plan as above. Rest of management as per Ana Petersen [employer]UTION ARCHITECT-C's note, which I have reviewed and endorsed. - Physical Exam Vital Signs Temp Pulse Resp BP Pulse Ox 97.8 F 72 16 140/110 H 98 12/30/18 08:54 12/30/18 11:07 12/30/18 08:54 12/30/18 08:54 12/30/18 08:54 Oxygen Flow Rate (L/min) 2 Oxygen Delivery Method Room Air Weight: 260 lb 2.327 oz Body Mass Index (BMI) 52.8 Intake and Output for Last 24 Hours 12/28/18 12/29/18 12/30/18 23:59 23:59 23:59 Intake Total 480 / 480 Balance 480 / 480 Laboratory Tests Past 24 Hrs 12/29/18 12/29/18 12/29/18 19:53 19:53 20:24 WBC 6.1 RBC 4.18 L Hgb 12.8 Hct 38.4 MCV 91.9 MCH 30.6 MCHC 33.3 RDW Std Deviation 49.3 H RDW Coeff of Noe 14.6 Plt Count 197 MPV 9.2 Immature Gran % (Auto) 0.300 Neut % (Auto) 75.8 H Lymph % (Auto) 15.9 L [place] % (Auto) 6.6 Eos % (Auto) 1.2 Baso % (Auto) 0.2 Absolute Neuts (auto) 4.6 Absolute Lymphs (auto) 0.96 Nucleated RBC % 0 Sodium 139 Potassium 3.6 Chloride 106 Carbon Dioxide 27.0 Anion Gap 6 BUN 14 Creatinine 0.67 Estim Creat Clear Calc 160.03 Est GFR (MDRD) Af Amer 113 Est GFR (MDRD) Non-Af 94 BUN/Creatinine Ratio 20.8 H Glucose 89 Calcium 8.8 Magnesium Troponin I < 0.015 Triglycerides Cholesterol LDL Cholesterol VLDL Cholesterol HDL Cholesterol TSH Free T4 Urine Color Yellow Urine Clarity Clear Urine pH 7.0 Ur Specific [place] [employer] 1.010 Urine Protein Negative Urine Glucose (UA) Normal Urine Ketones Negative Urine Occult Blood Negative Urine Nitrite Negative Urine Bilirubin Negative Urine Urobilinogen Normal Ur Leukocyte Esterase Negative Urine RBC 0 SEEN Urine WBC 0 SEEN Ur Squamous Epith Cells 0 SEEN Urine Bacteria 0 SEEN Urine Mucus 0 SEEN 12/29/18 12/30/18 12/30/18 23:15 01:33 07:08 WBC RBC Hgb Hct MCV MCH MCHC RDW Std Deviation RDW Coeff of Noe Plt Count MPV Immature Gran % (Auto) Neut % (Auto) Lymph % (Auto) [place] % (Auto) Eos % (Auto) Baso % (Auto) Absolute Neuts (auto) Absolute Lymphs (auto) Nucleated RBC % Sodium 140 Potassium 3.2 L Chloride 110 H Carbon Dioxide 26.0 Anion Gap 4 L BUN 13 Creatinine 0.57 Estim Creat Clear Calc 186.69 Est GFR (MDRD) Af Amer 136 Est GFR (MDRD) Non-Af 113 BUN/Creatinine Ratio 22.6 H Glucose 88 Calcium 8.1 L Magnesium 2.2 Troponin I < 0.015 < 0.015 Triglycerides 58 Cholesterol 117 LDL Cholesterol 67 VLDL Cholesterol 12 HDL Cholesterol 38 L TSH 1.11 Free T4 0.74 L Urine Color Urine Clarity Urine pH Ur Specific [place] Urine Protein Urine Glucose (UA) Urine Ketones Urine Occult Blood Urine Nitrite Urine Bilirubin Urine Urobilinogen Ur Leukocyte Esterase Urine RBC Urine WBC Ur Squamous Epith Cells Urine Bacteria Urine Mucus Code Visit OBSV E&M: [id number] Observation care discharge
== END 2018-12-30 11:47 | disposition home or self-care (01) ==
LOC: ED 21:05 → PCU 12-30 07:08
PROVIDERS: Admitting Provider Internal Medicine; Emergency Provider Emergency Medicine; Family Provider Family Medicine; PCP Family Medicine; Referring Provider Internal Medicine; Visit Provider Student in an Organized Health Care Education/Training Program
DX: R07.89 Other chest pain (principal); R06.02 Shortness of breath; R30.0 Dysuria; R51 Headache; I10 Essential (primary) hypertension; M06.9 Rheumatoid arthritis, unspecified; E03.9 Hypothyroidism, unspecified; M79.89 Other specified soft tissue disorders; Z79.899 Other long term (current) drug therapy; E87.6 Hypokalemia; E78.5 Hyperlipidemia, unspecified; Z87.440 Personal history of urinary (tract) infections
CPT/HCPCS: 36415; 70450; 71045; 78452; 80048; 80061; 81001; 83735; 84439; 84443; 84484; 85025; 87086; 87088; 93005; 93017; 93306; 99218; 99285; A9500; Q9957; A4216; C8929; G0378; J2785

== ENCOUNTER → 2019-02-16 | Outpatient (CLI) | payer OTHER, SELFPAY ==
[2018-12-29 23:14] VITALS: BMI 52.8
[2019-02-16 12:21] LABS: M R Staph aureus DNA By PCR Negative (Negative); Probe Check PASS; Specimen Processing Control PASS
== END | disposition home or self-care (01) ==
LOC: LABSPEC 10:23
PROVIDERS: Family Provider Family Medicine; PCP Family Medicine; Referring Provider Internal Medicine; Visit Provider Internal Medicine
DX: Z01.818 Encounter for other preprocedural examination (principal)
CPT/HCPCS: 87641

== ENCOUNTER → 2019-03-09 | Outpatient (CLI) | payer OTHER, SELFPAY ==
[2018-12-29 23:14] VITALS: BMI 52.8
== END | disposition home or self-care (01) ==
LOC: MTLAB 10:59
PROVIDERS: Family Provider Internal Medicine; PCP Internal Medicine; Referring Provider Internal Medicine; Visit Provider Internal Medicine
DX: R39.9 Unspecified symptoms and signs involving the genitourinary system (principal)
CPT/HCPCS: 87086; 87088; 87186

== ENCOUNTER → 2019-04-17 10:28 | Outpatient (CLI) | payer OTHER, SELFPAY ==
[2018-12-29 23:14] VITALS: BMI 52.8
[2019-04-17 11:09] LABS: Absolute Lymphocyte Count 1.89 X10^3/uL (0.83-4.51); Absolute Neutrophil Count 2.8 X10^3/uL (2.0-7.7); Basophil# 0.02 X10^3/uL; Basophil% 0.4 % (0-1); Eosinophils% 1.9 % (0-5); Hematocrit 36.1 % (37-47); Hemoglobin 11.8 g/dL (12.0-15.0); Lymphocyte # 1.89 X10^3/ul (4.0); Mean Corp Hgb Conc 32.7 g/dL (32-36); Mean Corpuscular Hgb 29.1 pg (27.0-32.0); Mean Corpuscular Volume 88.9 fL (81-99); Mean Platelet Vol. 9.3 fl (6.2-12.0); Monocyte# 0.41 X10^3/uL; Monocyte% 7.8 % (0-10); NRBC Flagged by Analyzer 0 % (0-5); Neutrophil # 2.82 X10^3/uL (2.7-7.7); Neutrophil % 53.7 % (47-70); Platelet Count 224 K/mm3 (150-450); RBC Distribution Width CV 14.7 % (11.6-14.6); RBC Distribution Width SD 47.3 fl (35.1-43.9); Red Blood Count 4.06 M/mm3 (4.2-5.4); White Blood Count 5.3 K/mm3 (4.4-11.0)
[2019-04-17 11:32] LABS: ALB/GLOB Ratio 1.1 RATIO (0.9-2.4); AST(SGOT) 25 U/L (15-37); Alanine Aminotransfer ALT/SGPT 17 U/L (13-56); Albumin, Serum 3.9 g/dL (3.2-5.0); Alkaline Phosphatase 104 U/L (45-117); Anion Gap 7 (5-15); BUN 12 mg/dL (7-18); BUN/Creat Ratio 19.4 RATIO (10-20); Calcium,Total 9.1 mg/dL (8.5-10.1); Chloride 105 mmol/L (98-107); Creatinine, Serum 0.62 mg/dL (0.55-1.02); EST Glomerular Filtration Rate 103 mL/min (>60); Est Glom Filt Rate - Afr Amer 125 mL/min (>60); Globulin 3.7 g/dL (2.2-4.2); Glucose 88 mg/dL (74-106); Potassium 3.7 mmol/L (3.5-5.1); Protein, Total 7.6 g/dL (6.4-8.2); Sodium Level 139 mmol/L (136-145)
== END ==
PROVIDERS: Family Provider Internal Medicine; PCP Internal Medicine; Referring Provider Internal Medicine Rheumatology; Visit Provider Internal Medicine Rheumatology
DX: M06.4 Inflammatory polyarthropathy (principal); M15.9 Polyosteoarthritis, unspecified; M47.897 Other spondylosis, lumbosacral region; I10 Essential (primary) hypertension; G47.33 Obstructive sleep apnea (adult) (pediatric); Z79.899 Other long term (current) drug therapy
CPT/HCPCS: 36415; 80053; 85025

== ENCOUNTER → 2019-11-12 11:01 | Outpatient (CLI) | payer MEDICARE, MEDICAID, SELFPAY ==
[2019-10-29 08:40] VITALS: BMI 49.0
--- NOTE | 2019-11-12 11:26 | CT_ITS ---
STUDY: CT BRAIN WITHOUT CONTRAST REASON FOR EXAM: Female, 64 years old. PT STATED HX MINI STROKE 2016, RECENT HEADACHE, BLURRED VISION RADIATION DOSAGE (If Supplied By Facility): CTDIvol = ( 44.99 ) mGy, DLP = ( 762.36 ) mGycm TECHNIQUE: Transaxial CT imaging of the brain was performed without administration of intravenous contrast material. Individualized dose optimization techniques were used for this CT. COMPARISON: Noncontrast CT brain December 29, 2018. FINDINGS: Normal soft tissue structures. Normal calvarium. Normal size ventricles and extra-axial spaces for the patient''s age. Normal white matter tracts of the cerebral hemispheres. Normal basal ganglia and thalami. Normal brainstem. Normal cerebellum. There are atherosclerotic calcifications in the cavernous segments of the bilateral internal carotid arteries. There is no intracranial hemorrhage. There are no findings of an acute ischemic infarction. Normal visualized paranasal sinuses. CT/Brain/Head without Contrast IMPRESSION: No acute intracranial pathology. Electronically Signed: Gerard Clarke MD at 12:29 EDT , Service support ,
== END ==
PROVIDERS: PCP Internal Medicine; Referring Provider Internal Medicine; Visit Provider Internal Medicine
DX: I65.23 Occlusion and stenosis of bilateral carotid arteries (principal)
CPT/HCPCS: 70450

== ENCOUNTER → 2019-11-15 | Outpatient (CLI) | payer MEDICARE, MEDICAID, SELFPAY ==
[2019-10-29 08:40] VITALS: BMI 49.0
--- NOTE | 2019-11-15 13:13 | CDU_ITS ---
Version 2 Reason For Study: TIA, carotid stenosis Rt. Velocities/BP Lt. Velocities/BP Prox CCA 87.8/22.6 cm/sec. Prox CCA 82.6/22.6 cm/sec. Mid CCA 48.6/9.5 cm/sec. Mid CCA 77.3/21.3 cm/sec. Dist CCA 66.9/13.4 cm/sec. Dist CCA 77.3/23.9 cm/sec. Prox ICA 133.9/49.9 cm/sec. Prox ICA 64.3/18.6 cm/sec. Mid ICA 117.4/35.3 cm/sec. Mid ICA 89.1/31.7 cm/sec. Dist ICA 132.3/38.8 cm/sec. Dist ICA 148.5/51.7 cm/sec. Rt. ICA/CCA = 2.8. Lt. ICA/CCA = 1.9. Prox ECA 85.1/13.4 cm/sec. Prox ECA 64.3/6.9 cm/sec. Rt. Vert. 50.7/13.9 cm/sec. Lt. Vert. 50.9/14.6 cm/sec. Right Extracranial There is intimal thickening but no significant atherosclerotic plaque noted in the right common carotid artery. There is heterogeneous, irregular atherosclerotic plaque noted in the right internal carotid artery. The right internal carotid artery is very tortuous. There is heterogeneous, irregular atherosclerotic plaque noted in the right external carotid artery. Antegrade flow is noted in the right vertebral artery. Left Extracranial There is intimal thickening but no significant atherosclerotic plaque noted in the left common carotid artery. There is heterogeneous, irregular atherosclerotic plaque noted in the left internal carotid artery. The left internal carotid artery is very tortuous. There is intimal thickening but no significant atherosclerotic plaque noted in the left external carotid artery. Antegrade flow is noted in the left vertebral artery. Procedure Carotid Duplex [id number]. The exam was diagnostic. Exam performed in department. Interpretation Summary Moderate (50-69%) stenosis right extracranial internal carotid. Mild (<50%) stenosis left extracranial internal carotid. Flow within the vertebral arteries is antegrade bilaterally. Elevated velocities in the left internal carotid artery appear to be related to vessel tortuosity rather than an occlusive process. Clinical correlation is advised. Ordering Physician: Polina Gilbert Performed By: Joshua Looney RVT
--- NOTE | 2019-11-15 13:13 | ECHOCS_ITS ---
Reason For Study: TIA Procedure This was a 2D Doppler, Color Flow transthoracic echocardiogram. The study was technically difficult. Exam performed in department. Left Ventricle Normal LV size. The estimated ejection fraction is 60 %. No evidence for diastolic dysfunction. No regional wall motion abnormalities noted. Right Ventricle Normal RV size. Normal systolic function. Atria Normal left atrium. Normal right atrium. No doppler evidence for ASD. Mitral Valve There is no mitral valve stenosis. No mitral valve insufficiency. Tricuspid Valve There is no tricuspid stenosis. Unable to estimate RV systolic pressure due to insufficient tricuspid regurgitant envelope. Trivial tricuspid valve insufficiency. Aortic Valve Trisinus/trileaflet aortic valve. There is no aortic stenosis. No aortic valve insufficiency. Pulmonic Valve There is no pulmonic valvular stenosis. No pulmonic valve insufficiency. Great Vessels not well visualized. Pericardium/Pleural No pericardial effusion. Medication 22 gauge I.V. with prn adaptor inserted into left arm. Diluted definity 6ml given slow IV push to enhance endocardial definition. Performed a rapid injection of agitated mix of 9 cc saline and 1cc air to assess for atrial septal defect. MMode/2D Measurements & Calculations LVIDd: 5.0 cm IVSd: 0.82 cm LAV(MOD-bp): 59.7 ml LVIDs: 3.3 cm LVPWd: 0.88 cm RVDd: 3.7 cm FS: 35.2 % LAV(MOD-bp) Indexed: 29.1 ml/m2 LAV(MOD-sp2): 83.6 ml LAV(MOD-sp4): 43.7 ml SV(MOD-sp4): 57.4 ml SV(sp4-el): 61.1 ml LVAd ap4: 28.9 cm2 EDV(MOD-sp4): 90.1 ml EDV(sp4-el): 94.4 ml LVAs ap4: 15.4 cm2 ESV(MOD-sp4): 32.7 ml ESV(sp4-el): 33.3 ml EF(MOD-sp4): 63.7 % EF(sp4-el): 64.7 % LA A4 area: 17.3 cm2 RA A4 area: 14.9 cm2 Time Measurements MV dec time: 0.29 sec Doppler Measurements & Calculations MV E max peter: 112.8 cm/sec Lat Peak E' Peter: 12.9 cm/sec Med Peak E' Peter: 9.8 cm/sec MV A max peter: 123.6 cm/sec E/E' lat: 8.7 E/E' med: 11.5 MV E/A: 0.91 MV V2 max: 114.1 cm/sec MV P1/2t max peter: 107.1 cm/sec Ao V2 max: 202.7 cm/sec MV max P.2 mmHg MV P1/2t: 113.3 msec Ao max P.4 mmHg MV V2 mean: 77.8 cm/sec MV dec slope: 276.9 cm/sec2 MV mean P.7 mmHg MV V2 VTI: 38.3 cm MVA(P1/2t): 1.9 cm2 LV V1 max: 163.3 cm/sec PA V2 max: 125.6 cm/sec TR max peter: 297.2 cm/sec LV V1 max P.7 mmHg TR max P.3 mmHg Interpretation Summary The estimated ejection fraction is 60 %. No evidence for diastolic dysfunction. The study was technically difficult. Contrast injection was performed. Ordering Physician: Polina Gilbert Referring Physician: Polina Gilbert Performed By: Kaya Page RDCS
== END | disposition home or self-care (01) ==
LOC: CVS 13:06
PROVIDERS: PCP Internal Medicine; Referring Provider Internal Medicine; Visit Provider Internal Medicine
DX: I65.23 Occlusion and stenosis of bilateral carotid arteries (principal); G45.9 Transient cerebral ischemic attack, unspecified
CPT/HCPCS: 93306; 93880; Q9957; A4216; C8929

== ENCOUNTER → 2020-01-02 11:35 | Outpatient (CLI) | payer MEDICARE, MEDICAID, SELFPAY ==
[2019-10-29 08:40] VITALS: BMI 49.0
--- NOTE | 2020-01-02 11:36 | BI_ITS ---
MAMMOGRAPHY - BILATERAL SCREENING REASON FOR EXAM: Female, 64 years old. Routine annual screening examination. PERTINENT HISTORY: Non-contributory. TECHNIQUE: Digital bilateral breast john (3D mammographic acquisition) in the CC and MLO projections. 2-D mediolateral oblique (MLO) and craniocaudad (CC) views of both breasts were obtained. CAD: Full Field Digital Mammography with Computer Added Detection was performed. COMPARISON: Comparison is made with prior outside examination dated 03/01/2018. FINDINGS: Breast Composition: There are scattered areas of fibroglandular density. There are no dominant masses or suspicious calcifications. The previously seen 8.9 mm nodule in the upper central portion of the right breast is not seen at this time. Stable benign-appearing bilateral axillary lymph nodes. No other significant abnormalities are identified. There has been no significant change since the prior study. BI/SCREEN MAMM (CAD) W/JOHN BILAT IMPRESSION: Stable bilateral screening mammogram. Yearly follow-up mammogram recommended. (A) ASSESSMENT CATEGORY: BIRADS Category 2: Benign. A letter regarding these results will be sent to the patient by the facility within 30 days. Approximately 10% of breast cancers are not detected by mammography. A normal mammogram should not delay biopsy of a clinically suspicious abnormality. [id number] Electronically Signed: Corbin Zelaya, at 10:24 EDT , Service support ,
--- NOTE | 2020-01-02 11:38 | BD_ITS ---
STUDY: DUAL ENERGY X-RAY ABSORPTIOMETRY / DXA REASON FOR EXAM: Female, 64 years old. 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 -- TAKES THYROID MEDICATION -- TAKES DIURETIC -- TAKES CALCIUM AND MULTIVITAMIN -- DOES LITTLE EXERCISE -- FAMILY HX OF OSTEO- MOTHER -- HX OF ANKLE FX AND PELVIC FX -- HX OF LUMBAR FUSION RECENTLY -- GALLITO OF 3 INCHES TECHNIQUE: Bone Mineral Density (BMD) measurements of both forearms were obtained. COMPARISON: None. FINDINGS: Right Forearm: g/cm2 (0.787) / T-score (-1.1) / Z-score (0.2) Left Forearm: g/cm2 (0.882) / T-score (-0.1) / Z-score (1.3) BD/Dexa Bone Density/Append Skel IMPRESSION: The patient is considered osteopenic as outlined below according to World Jam Organization (WHO) criteria with a low fracture risk. Reference Information: The T-score is the number of standard deviations above or below the standard which is normal for young adults at their peak bone mineral density. The World Health Organization (WHO) interprets the T-scores as follows: Above -1 Normal bone density Between -1 and -2.5 Osteopenia Equal to / or below -2.5 Osteoporosis As a practical clinical guideline, osteopenia may be graded as follows: Mild -1 through -1.5 Moderate -1.6 through -2.0 Severe -2.1 through -2.4 The Z-score is the number of standard deviations above or below age-matched controls. A Z-score of less than -1.5 would be considered abnormal. References: 1. NIH Osteoporosis and Related Bone Diseases http://www.osteo.org 2. International Society for Clinical Densitometry http://www.iscd.org 3. National Osteoporosis Foundation http://www.nof.org Electronically Signed: Corbin Zelaya, at 15:23 EDT , Service support ,
== END ==
PROVIDERS: PCP Internal Medicine; Referring Provider Internal Medicine; Visit Provider Internal Medicine
DX: Z12.31 Encounter for screening mammogram for malignant neoplasm of breast (principal); Z78.0 Asymptomatic menopausal state
CPT/HCPCS: 77063; 77067; 77081

== ENCOUNTER → 2020-02-20 08:18 | Outpatient (CLI) | payer MEDICARE, MEDICAID, SELFPAY ==
[2019-10-29 08:40] VITALS: BMI 49.0
[2020-02-20 09:36] LABS: AST(SGOT) 33 U/L (15-37); Alanine Aminotransfer ALT/SGPT 22 U/L (13-56); Albumin, Serum 3.6 g/dL (3.2-5.0); Alkaline Phosphatase 114 U/L (45-117); Bilirubin, Direct 0.17 mg/dL (0.00-0.30); Cholesterol 149 mg/dL (200); Globulin 3.6 g/dL (2.2-4.2); High Density Lipoprotein 52 mg/dL; Protein, Total 7.2 g/dL (6.4-8.2); Triglycerides 69 mg/dL; Very Low Density Lipoprotein 14 mg/dL (5-40)
== END ==
PROVIDERS: Internal Medicine Cardiovascular Disease; PCP Internal Medicine; Referring Provider Nurse Practitioner Family; Visit Provider Nurse Practitioner Family
DX: E78.5 Hyperlipidemia, unspecified (principal)
CPT/HCPCS: 36415; 80061; 80076

== ENCOUNTER → 2020-02-27 | Outpatient (CLI) | payer MEDICARE, MEDICAID, SELFPAY ==
[2019-10-29 08:40] VITALS: BMI 49.0
== END | disposition home or self-care (01) ==
LOC: LABSPEC 15:15
PROVIDERS: PCP Internal Medicine; Referring Provider Internal Medicine; Visit Provider Internal Medicine
DX: R35.0 Frequency of micturition (principal)
CPT/HCPCS: 87086; 87088

== ENCOUNTER → 2020-04-22 13:20 | Outpatient (CLI) | payer MEDICARE, MEDICAID, SELFPAY ==
[2019-10-29 08:40] VITALS: BMI 49.0
[2020-04-22 14:11] LABS: CREATININE FINGERSTICK 0.7 mg/dL (0.55-1.02)
--- NOTE | 2020-04-22 14:16 | CT_ITS ---
STUDY: CTA CHEST REASON FOR EXAM: Female, 64 years old. SOB, HAD COVID 6 WKS AGO RADIATION DOSAGE (If Supplied By Facility): CTDIvol = ( 11.47 ) mGy, DLP = ( 498.19 ) mGycm TECHNIQUE: The examination was performed with the intravenous administration of IV 100mL Isovue-370. Post-processing of the angiographic images was performed, with multiplanar reformation and 3D reconstruction. Individualized dose optimization techniques were used for this CT. COMPARISON: Previous AP chest obtained on 12/29/2018 FINDINGS: A CT pulmonary exam was performed with IV contrast. The CT scan was performed is optimize visualization of the pulmonary arteries The pulmonary parenchyma was carefully examined and appears to be normal. The heart is normal. The superior mediastinum including the subcarinal bifurcation, both conrado and the superior mediastinum are normal. Careful attention was paid to the pulmonary arteries. No filling defects suggestive of pulmonary emboli are seen. There is normal branch pattern of the aortic arch. CT/CTA Chest W/WO Contrast IMPRESSION: Normal CTA chest examination, without a demonstrated pulmonary embolism. Electronically Signed: Damian Archuleta, at 15:02 EST Tel , Service support ,
== END ==
PROVIDERS: PCP Internal Medicine; Referring Provider Internal Medicine; Visit Provider Internal Medicine
DX: R39.9 Unspecified symptoms and signs involving the genitourinary system (principal); R06.02 Shortness of breath
CPT/HCPCS: 71275; 87077; 87086; 87088; 87186; Q9967

== ENCOUNTER → 2020-08-26 08:31 | Outpatient (CLI) | payer MEDICARE, MEDICAID, SELFPAY ==
[2019-10-29 08:40] VITALS: BMI 49.0
[2020-08-26 08:47] LABS: Mucous, Urine 0 SEEN /hpf (<or=2+); Red Blood Cells-Urine 0 SEEN /hpf (0-5)
[2020-08-26 09:32] LABS: Color, Urine Yellow (Yellow); Glucose, Dipstick Normal (Normal); Ketone-Dipstick Negative (Negative); Leukocyte Esterase-Dipstick 500 /ul (Negative); Nitrite-Dipstick Positive (Negative); Occult Blood-Urine 10 /ul (Negative); Protein-Dipstick 15 mg/dl (Negative); Urine Bilirubin Dipstick Negative (Negative); Urine Clarity Sl. Cloudy (Clear); Urine Urobilinogen Normal (Normal); Urine pH 6.5 (5.0 - 8.0)
[2020-08-26 09:42] LABS: Bacteria 2+ /hpf (None Seen); Squamous Epithelial Cells - UA 0-5 SEEN /hpf (5-10); White Blood Cells 25-50 SEEN /hpf (0-5)
[2020-08-26 09:46] LABS: Erythrocyte Sedimentation Rate 23 mm/hr (0-30)
[2020-08-26 09:48] LABS: Absolute Lymphocyte Count 1.56 X10^3/uL (0.83-4.51); Absolute Neutrophil Count 2.4 X10^3/uL (2.0-7.7); Basophil# 0.03 X10^3/uL; Basophil% 0.7 % (0-1); Eosinophil# 0.18 X10^3/uL; Hematocrit 38.8 % (37-47); Hemoglobin 12.8 g/dL (12.0-15.0); Lymphocyte # 1.56 X10^3/ul (4.0); Lymphocyte % 34.7 % (19-41); Mean Corpuscular Hgb 30.7 pg (27.0-32.0); Mean Platelet Vol. 9.5 fl (6.2-12.0); Monocyte# 0.37 X10^3/uL; Monocyte% 8.2 % (0-10); NRBC Flagged by Analyzer 0 % (0-5); Neutrophil # 2.35 X10^3/uL (2.7-7.7); Neutrophil % 52.2 % (47-70); Platelet Count 255 K/mm3 (150-450); RBC Distribution Width CV 14.5 % (11.6-14.6); RBC Distribution Width SD 48.8 fl (35.1-43.9); Red Blood Count 4.17 M/mm3 (4.2-5.4); White Blood Count 4.5 K/mm3 (4.4-11.0)
[2020-08-26 10:05] LABS: Vitamin D,25 Hydroxy 26.9 ng/mL
[2020-08-26 10:11] LABS: AST(SGOT) 18 U/L (15-37); Alanine Aminotransfer ALT/SGPT 15 U/L (13-56); Albumin, Serum 3.7 g/dL (3.2-5.0); Alkaline Phosphatase 93 U/L (45-117); Anion Gap 3 (5-15); BUN 12 mg/dL (7-18); CRP 5.38 mg/L (0.0-3.0); Calcium,Total 9.2 mg/dL (8.5-10.1); Chloride 105 mmol/L (98-107); Cholesterol 177 mg/dL (200); Creatinine, Serum 0.63 mg/dL (0.55-1.02); EST Glomerular Filtration Rate 100 mL/min (>60); Est Glom Filt Rate - Afr Amer 121 mL/min (>60); Globulin 3.6 g/dL (2.2-4.2); Glucose 94 mg/dL (74-106); High Density Lipoprotein 55 mg/dL; Potassium 3.9 mmol/L (3.5-5.1); Protein, Total 7.3 g/dL (6.4-8.2); Sodium Level 137 mmol/L (136-145); Thyroid Stim Hormone (TSH) 2.59 uIU/mL (0.358-3.74); Triglycerides 94 mg/dL; Very Low Density Lipoprotein 19 mg/dL (5-40)
[2020-08-26 10:45] LABS: Microalbumin,Random Urine 6.9 mg/L (NO RANGE EST.); Microalbumin:Creatinine Ratio 6.2 mg/g CRE (<30 mg/g CRE)
== END ==
PROVIDERS: PCP Internal Medicine; Referring Provider Internal Medicine; Visit Provider Internal Medicine
DX: E55.9 Vitamin D deficiency, unspecified (principal); D63.8 Anemia in other chronic diseases classified elsewhere; R79.82 Elevated C-reactive protein (CRP); R70.0 Elevated erythrocyte sedimentation rate; R79.89 Other specified abnormal findings of blood chemistry; E03.9 Hypothyroidism, unspecified; I10 Essential (primary) hypertension; R39.9 Unspecified symptoms and signs involving the genitourinary system
CPT/HCPCS: 36415; 80053; 80061; 81001; 82043; 82306; 82570; 84443; 85025; 85652; 86140

== ENCOUNTER → 2020-10-01 20:16 | Outpatient (CLI) | payer MEDICARE, MEDICAID, SELFPAY ==
[2020-09-23 08:43] VITALS: BMI 49.0
== END ==
PROVIDERS: PCP Internal Medicine; Referring Provider Nurse Practitioner Acute Care; Visit Provider Nurse Practitioner Acute Care
DX: G47.33 Obstructive sleep apnea (adult) (pediatric) (principal); Z99.89 Dependence on other enabling machines and devices
CPT/HCPCS: 95811

== ENCOUNTER → 2021-03-30 | Outpatient (CLI) | payer MEDICARE, MEDICAID, SELFPAY | END | disposition home or self-care (01) | PROVIDERS: PCP Internal Medicine; Referring Provider Internal Medicine; Visit Provider Internal Medicine | DX: R39.9 Unspecified symptoms and signs involving the genitourinary system (principal) | CPT/HCPCS: 87086; 87088 ==

== ENCOUNTER 2021-07-24 09:11 | Outpatient (CLI) | payer MEDICARE, MEDICAID, SELFPAY ==
--- NOTE | 2021-07-24 09:14 | US_ITS ---
STUDY: THYROID ULTRASOUND REASON FOR EXAM: Female, 65 years old. Palpably enlarged thyroid TECHNIQUE: Ultrasound evaluation of the thyroid was performed with real-time and static domingo-scale imaging. COMPARISON: None. FINDINGS: RIGHT LOBE: The right lobe of the thyroid gland measures 4.6 x 1.3 x 1.5 cm. There is a heterogeneous echotexture. 3 separate solid hypoechoic nodules in the lower pole measuring between 0.4 and 0.7 cm. LEFT LOBE: The left lobe of the thyroid gland measures 3.8 x 1.2 x 1.0 cm. There is a homogeneous echotexture. There are no demonstrated solid, cystic or complex lesions. ISTHMUS: The isthmus measures 4 mm. The regional lymph nodes are normal. US/Thyroid IMPRESSION: Heterogeneous thyroid gland with multiple solid hypoechoic nodules in the right lobe all measuring less than 1 cm. Nodules are moderately suspicious but no FNA or follow-up is necessary given the small size of the nodules Electronically Signed: Gerard Patricia MD at 14:35 EST ,
== END 2021-07-24 23:59 | disposition home or self-care (01) ==
LOC: US 09:11
PROVIDERS: PCP Internal Medicine; Referring Provider Internal Medicine; Visit Provider Internal Medicine
DX: E01.0 Iodine-deficiency related diffuse (endemic) goiter (principal)
CPT/HCPCS: 76536

== ENCOUNTER → 2021-10-21 | Outpatient (CLI) | payer MEDICARE, SELFPAY ==
[2021-10-21 08:45] LABS: Mucous, Urine 0 SEEN /hpf (<or=2+); Red Blood Cells-Urine 0 SEEN /hpf (0-5)
[2021-10-21 10:43] LABS: Absolute Lymphocyte Count 1.71 X10^3/uL (0.83-4.51); Basophil# 0.02 X10^3/uL; Basophil% 0.4 % (0-1); Eosinophil# 0.13 X10^3/uL; Eosinophils% 2.4 % (0-5); Hematocrit 42.9 % (37-47); Hemoglobin 14.1 g/dL (12.0-15.0); Lymphocyte # 1.71 X10^3/ul (0.83-4.51); Lymphocyte % 32.1 % (19-41); Mean Corp Hgb Conc 32.9 g/dL (32-36); Mean Corpuscular Hgb 31.1 pg (27.0-32.0); Mean Corpuscular Volume 94.5 fL (81-99); Mean Platelet Vol. 10.3 fl (6.2-12.0); Monocyte# 0.43 X10^3/uL; Monocyte% 8.1 % (0-10); NRBC Flagged by Analyzer 0 % (0-5); Neutrophil # 3.01 X10^3/uL (2.7-7.7); Neutrophil % 56.6 % (47-70); Platelet Count 247 K/mm3 (150-450); RBC Distribution Width CV 14.5 % (11.6-14.6); RBC Distribution Width SD 50.4 fl (35.1-43.9); Red Blood Count 4.54 M/mm3 (4.2-5.4); White Blood Count 5.3 K/mm3 (4.4-11.0)
[2021-10-21 10:44] LABS: Color, Urine Yellow (Yellow); Glucose, Dipstick Normal (Normal); Ketone-Dipstick Negative (Negative); Leukocyte Esterase-Dipstick 100 /ul (Negative); Nitrite-Dipstick Positive (Negative); Occult Blood-Urine 10 /ul (Negative); Protein-Dipstick Negative (Negative); Specific Gravity, Urine 1.015 (1.002-1.030); Urine Bilirubin Dipstick Negative (Negative); Urine Clarity Clear (Clear); Urine Urobilinogen Normal (Normal)
[2021-10-21 10:51] LABS: Bacteria 3+ /hpf (None Seen); Squamous Epithelial Cells - UA 0-5 SEEN /hpf (5-10); White Blood Cells 10-25 SEEN /hpf (0-5)
[2021-10-21 10:53] LABS: Erythrocyte Sedimentation Rate 19 mm/hr (0-30)
[2021-10-21 11:05] LABS: Microalbumin,Random Urine 10.1 mg/L (NO RANGE EST.); Microalbumin:Creatinine Ratio 10.6 mg/g CRE (<30 mg/g CRE)
[2021-10-21 11:15] LABS: Vitamin D,25 Hydroxy 81.3 ng/mL
[2021-10-21 11:27] LABS: ALB/GLOB Ratio 1.3 RATIO (0.9-2.4); AST(SGOT) 21 U/L (15-37); Alanine Aminotransfer ALT/SGPT 22 U/L (13-56); Albumin, Serum 4.3 g/dL (3.2-5.0); Alkaline Phosphatase 96 U/L (45-117); Anion Gap 7 (5-15); BUN 17 mg/dL (7-18); BUN/Creat Ratio 23.8 RATIO (10-20); CRP 4.18 mg/L (0.0-3.0); Calcium,Total 9.5 mg/dL (8.5-10.1); Chloride 104 mmol/L (98-107); Cholesterol 191 mg/dL (200); Creatinine, Serum 0.71 mg/dL (0.55-1.02); EST Glomerular Filtration Rate 87 mL/min (>60); Est Glom Filt Rate - Afr Amer 105 mL/min (>60); Globulin 3.3 g/dL (2.2-4.2); Glucose 83 mg/dL (74-106); High Density Lipoprotein 51 mg/dL; Potassium 4.1 mmol/L (3.5-5.1); Protein, Total 7.6 g/dL (6.4-8.2); Sodium Level 138 mmol/L (136-145); Thyroid Stim Hormone (TSH) 4.75 uIU/mL (0.358-3.74); Triglycerides 93 mg/dL; Very Low Density Lipoprotein 19 mg/dL (5-40)
== END | disposition home or self-care (01) ==
PROVIDERS: PCP Internal Medicine
DX: E55.9 Vitamin D deficiency, unspecified (principal); R79.82 Elevated C-reactive protein (CRP); R70.0 Elevated erythrocyte sedimentation rate; D63.8 Anemia in other chronic diseases classified elsewhere; R79.89 Other specified abnormal findings of blood chemistry; E03.9 Hypothyroidism, unspecified; I10 Essential (primary) hypertension
CPT/HCPCS: 36415; 80053; 80061; 81001; 82043; 82306; 82570; 84443; 85025; 85652; 86140

== ENCOUNTER → 2021-11-09 | Outpatient (CLI) | payer MEDICARE, SELFPAY ==
[2021-11-09 12:21] LABS: CPK Total, Creatine Kinase 59 U/L (26-192); Troponin-I HS 5 pg/mL (3.0-54.0)
== END | disposition home or self-care (01) ==
LOC: LABSPEC 11:54
PROVIDERS: PCP Internal Medicine; Visit Provider Internal Medicine
DX: R07.89 Other chest pain (principal)
CPT/HCPCS: 82550; 84484

== ENCOUNTER → 2021-12-01 | Outpatient (CLI) | payer MEDICARE, SELFPAY ==
--- NOTE | 2021-12-01 06:39 | ECHOCS_ITS ---
Reason For Study: CHEST PAIN Procedure This was a 2D Doppler, Color Flow transthoracic echocardiogram. The study was technically difficult. Contrast injection was performed. Exam performed in department. Left Ventricle Normal LV size. Left ventricular systolic function is normal. The estimated ejection fraction is 65 %. No evidence for diastolic dysfunction. No regional wall motion abnormalities noted. Right Ventricle Normal RV size. Normal systolic function. Atria The left atrium is mildly enlarged. Normal right atrium. No doppler evidence for ASD. Mitral Valve There is moderate to severe mitral annular calcification. Extension of the mitral annular calcification onto the base of the posterior mitral valve leaflet. Trivial mitral valve insufficiency. Tricuspid Valve Normal tricuspid valve. Mild tricuspid valve insufficiency. Right ventricular systolic pressure estimated to be 32 mmHg. Aortic Valve The aortic valve is not well visualized. Pulmonic Valve The pulmonic valve is not well visualized. Great Vessels Normal sized aortic root. Pericardium/Pleural No pericardial effusion. Medication Diluted definity 3ml given slow IV push to enhance endocardial definition. MMode/2D Measurements & Calculations LVIDd: 5.0 cm IVSd: 1.0 cm Ao root diam: 2.7 cm LVIDs: 2.9 cm LVPWd: 1.1 cm RVDd: 3.1 cm FS: 41.5 % LAV(MOD-bp): 50.2 ml LVAd ap4: 27.8 cm2 SV(MOD-sp4): 57.8 ml LAV(MOD-bp) Indexed: 32.9 ml/m2 LVLd ap4: 7.6 cm LAV(MOD-sp2): 52.5 ml EDV(MOD-sp4): 82.8 ml LAV(MOD-sp4): 45.9 ml EDV(sp4-el): 85.7 ml LVAs ap4: 13.4 cm2 LVLs ap4: 5.8 cm ESV(MOD-sp4): 24.9 ml ESV(sp4-el): 26.4 ml EF(MOD-sp4): 69.9 % EF(sp4-el): 69.1 % SV(sp4-el): 59.2 ml LA A4 area: 17.5 cm2 LA dimension(2D): 3.5 cm RA A4 area: 14.9 cm2 Time Measurements MV dec time: 0.27 sec Doppler Measurements & Calculations MV E max peter: 114.4 cm/sec Lat Peak E' Peter: 9.8 cm/sec Med Peak E' Peter: 8.1 cm/sec MV A max peter: 124.7 cm/sec E/E' lat: 11.7 E/E' med: 14.0 MV E/A: 0.92 MV V2 max: 137.6 cm/sec Ao V2 max: 184.7 cm/sec LV V1 max: 144.2 cm/sec MV max P.6 mmHg Ao max P.6 mmHg LV V1 max P.3 mmHg MV V2 mean: 80.1 cm/sec MV mean P.9 mmHg MV V2 VTI: 37.3 cm PA V2 max: 111.5 cm/sec TR max peter: 269.7 cm/sec MV P1/2t-pr_phl: 91.5 msec TR max P.1 mmHg ECHO/Echo Complete W/ Contrast Interpretation Summary The study was technically difficult. Contrast injection was performed. Left ventricular systolic function is normal. The estimated ejection fraction is 65 %. The left atrium is mildly enlarged. There is moderate to severe mitral annular calcification. Extension of the mitral annular calcification onto the base of the posterior mi tral valve leaflet. Trivial mitral valve insufficiency. Mild tricuspid valve insufficiency. Right ventricular systolic pressure estimated to be 32 mmHg. No evidence for diastolic dysfunction. Ordering Physician: Polina Gilbert Referring Physician: Polina Gilbert Performed By: Kaya Page RDCS
--- NOTE | 2021-12-01 13:33 | STRESSREP_ITS ---
Stress Test Report Date: 12-01-2021 Procedure: Pharmacologic stress nuclear imaging study Indications: Chest pain Consent: Per the patient Procedure: The patient underwent pharmacologic (Regadenoson 0.4mg ) evaluation with a peak heart rate of 90 beats per minute (58%predicted maximal heart rate) and a peak blood pressure of 124/72 mmHg. The baseline ECG demonstrated normal sinus rhythm. The peak pharmacologic ECG demonstrated no obvious ECG changes. There were no cardiac dysrhythmias pretest, during pharmacologic infusion, or recovery. There was no complaint of chest discomfort during pharmacologic infusion or recovery. The examination was discontinued secondary to completion of protocol. Impression: 1. Pharmacologic (Regadenoson) evaluation 2. Peak pharmacologic ECG with no obvious ECG changes. 3. There were no cardiac dysrhythmias pretest, during pharmacologic infusion, or recovery. 4. Nuclear images pending Myocardial perfusion imaging study: Technique: The patient was injected with 14.4 millicuries of technetium 99m Cardiolite and subsequently rest SPECT Cardiolite nuclear imaging was obtained in the horizontal long, vertical long, and short axis views. The patient underwent pharmacologic (Regadenoson) evaluation with a peak heart rate of 90 beats per minute (58% percent predicted maximal heart rate) and a peak blood pressure of 124/72 mmHg. The patient was injected with 44.8 millicuries of technetium 99m Cardiolite and subsequently stress SPECT Cardiolite nuclear imaging was obtained in the horizontal long, vertical long, and short axis views. A gated Cardiolite study at peak stress was obtained. Interpretation: Rest and stress SPECT Cardiolite nuclear imaging status post realignment, normalization, and attenuation correction demonstrate relative uniform tracer uptake and myocardial perfusion appearing within normal limits. There is end systolic thickening and brightening. The gated Cardiolite study demonstrates myocardial thickening and inward wall motion. The reported LVEF is 73%. Impression: 1. Rest and stress SPECT Cardiolite nuclear imaging demonstrate relative uniform tracer uptake and myocardial perfusion appearing within normal limits. 2. The gated Cardiolite study reports an LVEF of 73%. This note was generated with [employer] software. It may contain incorrect words, spelling, and punctuation that were not noted in checking the note before signing.
== END | disposition home or self-care (01) ==
LOC: CVS 06:35
PROVIDERS: PCP Internal Medicine; Referring Provider Internal Medicine; Visit Provider Internal Medicine
DX: R07.89 Other chest pain (principal)
CPT/HCPCS: 78452; 93017; 93306; A9500; Q9957; A4216; C8929; J2785

== ENCOUNTER → 2021-12-18 | Outpatient (CLI) | payer MEDICARE, SELFPAY ==
[2021-12-19 03:03] LABS: Mucous, Urine 0 SEEN /hpf (<or=2+); Red Blood Cells-Urine 0 SEEN /hpf (0-5); Squamous Epithelial Cells - UA 0 SEEN /hpf (5-10)
[2021-12-19 03:29] LABS: Color, Urine Amber (Yellow); Glucose, Dipstick Normal (Normal); Ketone-Dipstick 5 mg/dl (Negative); Leukocyte Esterase-Dipstick 500 /ul (Negative); Nitrite-Dipstick Positive (Negative); Occult Blood-Urine Negative /ul (Negative); Protein-Dipstick Negative (Negative); Specific Gravity, Urine 1.015 (1.002-1.030); Urine Clarity Clear (Clear); Urine Urobilinogen 4 mg/dl (Normal)
[2021-12-19 03:50] LABS: Urine Bilirubin Dipstick 3 mg/dL (Negative); White Blood Cells 5-10 SEEN /hpf (0-5)
[2021-12-19 03:51] LABS: Bacteria 1+ /hpf (None Seen)
== END | disposition home or self-care (01) ==
LOC: BMS.EMR 12-19 09:02 → LABSPEC 12-19 09:04
PROVIDERS: PCP Internal Medicine; Visit Provider Physician Assistant Surgical
DX: N39.0 Urinary tract infection, site not specified (principal)
CPT/HCPCS: 81001; 87077; 87086; 87088; 87186

== ENCOUNTER → 2022-01-22 | Outpatient (CLI) | payer MEDICARE, SELFPAY ==
--- NOTE | 2022-01-22 11:50 | US_ITS ---
STUDY: THYROID ULTRASOUND REASON FOR EXAM: Female, 66 years old. NODULES TECHNIQUE: Ultrasound evaluation of the thyroid was performed with real-time and static domingo-scale imaging. COMPARISON: None. FINDINGS: RIGHT LOBE: The right lobe of the thyroid gland measures 4.4 x 1.3 x 1.5 cm.There are 3 right thyroid nodules visualized. These measure 0.5 x 0.5 x 0.7 cm, 0.6 x 0.4 x 0.6 cm and 0.5 x 0.5 x 0.5 cm. Remainder of right lobe demonstrates heterogeneous echo architecture. The aforementioned nodules are hyperechoic and solid. LEFT LOBE: The left lobe of the thyroid gland measures 4.0 x 1.2 x 1.0 cm. The left lobe demonstrates heterogeneous echo architecture. ISTHMUS: The isthmus measures 2.6 mm . The regional lymph nodes are normal. US/Thyroid IMPRESSION: Multinodular goiter as above. Electronically Signed: Rahat Machuca MD, LAKEISHA at 8:18 EDT ,
== END | disposition home or self-care (01) ==
LOC: US 11:28
PROVIDERS: PCP Internal Medicine; Referring Provider Internal Medicine; Visit Provider Internal Medicine
DX: E04.2 Nontoxic multinodular goiter (principal); N39.0 Urinary tract infection, site not specified
CPT/HCPCS: 76536; 87086; 87088

== ENCOUNTER 2022-10-13 10:23 | Observation (INO) | payer MEDICARE, MEDICAID, SELFPAY ==
[2022-10-13] VITALS (10 sets, daily range): BP systolic 108–188; BP diastolic 54–102; PULSE 60–80; RESP 12–18; TEMP 36–36.9; O2SAT 98–100; BMI 46.2; BMI 45.8
--- NOTE | 2022-10-13 10:30 | EKG12_ITS ---
Test Reason : Blood Pressure : / mmHG Vent. Rate : 067 BPM Atrial Rate : 067 BPM P-R Int : 164 ms QRS Dur : 086 ms QT Int : 416 ms P-R-T Axes : 051 005 019 degrees QTc Int : 439 ms Normal sinus rhythm Nonspecific ST abnormality Abnormal ECG Confirmed by MARGIE CHURCH, SANDY ([id number]), photograph editor SERA MAN ([id number]) on 10/15/2022 9:32:59 AM Referred By: THAIS Confirmed By:SANDY HANSON MD
--- NOTE | 2022-10-13 10:39 | EDS_ITS ---
HPI History of Present Illness Chief Complaint: Chest Other Informant: patient Onset/Context/Timing Onset: Weeks Activity at onset: gradual Timing: Intermittent Quality: Positive for Aching, Heaviness and Pressure Location: Substernal Current Severity: Gone Maximum Severity: Mild Worsened By: Exertion Relieved By: Rest Associated Symptoms: Positive for Nausea, Diaphoresis and Dyspnea Narrative Narrative: 67-year-old [facility] female history of mitral valve stenosis and rheumatoid arthritis. Had a heart cath in 2013. She is not diabetic she is a non-smoker. She describes at least 2-week history of exertional midsternal chest pressure that resolves with rest. Its been getting more frequent and more intense over the last several weeks. She has associated shortness of breath with exertion an d when she gets this discomfort she gets nausea and diaphoresis sometimes. She has never had any cardiac stent. Prior Similar Symptoms: Yes Recent Illness/Hospitalization: No CVD Risk Factors: Negative for Hypertension, Diabetes, Hypercholesterolemia, Family History 1' </=55 or Smoking PE Risk Factors: Negative for Recent Travel/Surgery, Recent Immobilization, Prior DVT or PE, Cancer or OCP + Smoking + >/=35 TAD Risk Factors: Negative for Marfan's Syndrome [facility] Medical History Atypical chest pain Essential hypertension History of left heart catheterization (10/03/13) Hyperlipidemia Hypothyroidism Mitral valve stenosis LUIZA on CPAP Osteoarthritis Osteoarthritis of right knee Other spondylosis, lumbosacral region Recurrent UTI Rheumatoid arthritis Home Medications folic acid 1 mg tablet 2 tab PO DAILY SUPPLEMENT 12/29/18 [History Last Taken 10/12/22] hydroxychloroquine 200 mg tablet 1 tab PO BID 12/29/18 [History Last Taken 10/13/22] methotrexate sodium 2.5 mg tablet 8 tab PO QWEEK 12/29/18 [History Last Taken 10/03/22] thyroid (pork) 90 mg tablet ([place] Thyroid) 90 mg PO DAILY THYROID 12/29/18 [History Last Taken 10/13/22] multivitamin 1 tab PO DAILY 06/12/21 [History Last Taken 10/12/22] aspirin 81 mg tablet,delayed release 81 mg PO DAILY [facility] 10/13/22 [History Last Taken 10/12/22] aspirin 81 mg tablet,delayed release 162 mg PO DAILY [facility] 10/13/22 [History Last Taken 10/13/22] cholecalciferol (vitamin D3) 125 mcg (5,000 unit) capsule 125 mcg PO QODAY S UPPLEMENT 10/13/22 [History Last Taken 10/11/22] furosemide 40 mg tablet 20 mg PO DAILY FLUID 10/13/22 [History Last Taken 10/12/22] furosemide 40 mg tablet 40 mg PO DAILY FLUID 10/13/22 [History Last Taken 10/13/22] Allergy/AdvReac Type Severity Reaction Status Date / Time nitrofurantoin Allergy Unknown UNKNOWN Verified 10/13/22 10:26 [From Macrobid] amoxicillin Allergy Rash Verified 10/13/22 10:26 losartan AdvReac Intermediate Hypotension Verified 10/13/22 10:26 and dizzy even on 12.5 mg Family History Mother CVA (cerebral vascular accident) Thyroid disorder Father Heart disease Diabetes Grandmother Cancer Surgical History History of hysterectomy (~1981) History of lumbar spinal fusion (03/14/19) Social History Smoking Status: Never smoker alcohol intake: never substance use type: does not use caffeine: Yes Type: coffee Number of servings: 1 ROS ROS ED ROS Narrative Exertional chest pain, dyspnea, nausea and diaphoresis. Review of Systems ROS Unobtainable: Denies due to encephalopathy Constitutional Constitutional ED: Denies chills or fever(s) Eyes Eyes: Reports none ENT ENT ED: Denies ear pain Cardiovascular Cardiovascular: Reports as per HPI and chest pain; Denies palpitations or racing heartbeat Respiratory/Chest Respiratory/Chest: Reports dyspnea and dyspnea on exertion; Denies cough Gastrointestinal Gastrointestinal: Denies abdominal pain Genitourinary Genitourinary ED: Denies dysuria or hematuria Musculoskeletal Musculoskeletal: Denies arthralgias Integumentary Denies abscess Neurologic Neurologic: Denies headache(s) Psychiatric Psychiatric: Denies anxiety Endocrine Endocrinology: Denies cold intolerance Hematologic/Lymphatic Hematologic/Lymphatic: Denies easy bleeding or easy bruising Allergic/Immunologic Allergic/Immunologic ED: Denies mouth swelling or tongue swelling EXAM Physical Exam Narrative Exam Narrative: 59-year-old female no distress. Accompanied by family member. Vital signs sta ble afebrile. Her initial blood pressure was 180/102. Her pulse ox is 100% on room air no hypoxia. H EENT exam unremarkable. Moist extremities. Neck nontender no JVD. Lungs clear equal symmetrical. Heart regular rhythm rate about 65 no murmur. Chest wall nontender. Abdomen soft nontender. Moving all 4 extremities. Equal symmetrical radial pulses. Calves are nontender without edema or cords. Neurologically she is awake and alert with no focal motor deficits. Const Vital Signs: 10/13/22 10:24 10/13/22 10:37 10/13/22 10:44 Temperature 97.4 F L Temperature Source Temporal Pulse Rate 66 70 Respiratory Rate 18 13 Blood Pressure 188/102 H 128/75 H Blood Pressure Mean 130 92 Pulse Ox 100 99 Oxygen Delivery Method Room Air Room Air Room Air Positive well nourished and well developed; Negative for cachectic, contractures or unkempt General Appearance ED: well developed and NAD; Negative for unkempt, cachectic, contractures or pallor Nutritional Appearance: Negative for cachectic HEENT Reports moist mucous membranes normocephalic and atraumatic; Negative for trauma or tenderness Eyes PERRL and EOMs intact bilaterally General Eye ED: Negative for pale conjunctiva or scleral icterus Neck no lymphadenopathy, supple and no JVD General: Negative for tenderness Chest Wall inspection of chest normal and palpation of chest normal Resp normal respiratory effort and clear to auscultation bilaterally Effort and Inspection: Negative for respiratory distress Auscultation: Negative for rales, rhonchi or wheezes Cardio regular rate, regular rhythm, S1 normal heart sound, S2 normal heart sound and no murmurs Peripheral Pulses: pulses 2+ throughout GI normal to inspection, nondistended, normoactive bowel sounds, soft to palpation, non-tender, non-distended and no masses Auscultation: Negative for hyperactive bowel sounds Palpation: Negative for splenomegaly or mass Back/Spine no CVA tenderness and no thoracic nor lumbar tenderness General Back: Negative for CVA tenderness Cervical Spine: Negative for cervical spine tenderness Extremity normal to inspection General Extremety ED: Negative for edema or pulses abnormal General Extremity: Negative for edema or pulses abnormal Neuro oriented x3 and CN's II-XII intact bilaterally Sensorium / Orientation: awake, alert, oriented to person, oriented to place and oriented to time; Negative for confused, lethargic or stuporous Psych mental status grossly normal Appearance: Negative for unkempt Attitude: No agitated Mood & Affect: Negative for depressed, anxious or tearful Skin no rashes or lesions noted and no wounds General Skin Exam: Negative for jaundice or pallor Rashes: No rashes noted Trauma: Negative for abrasion Heart Score History: Highly Suspicious ECG: Normal Age: >/= 65 years Risk Factors: 1 or 2 Risk Factors Score: 5 MDM MDM MDM Narrative Medical decision making narrative: 67-year-old female who has a classic description of exertional angina accelerating angina. She undergo cardiac work-up. She will need to be admitted for further evaluation either a stress test or directly to heart catheterization. Repeat exam unchanged. Doing well at 1145. We went over test results. Have the hospitalist on page for admission for unstable angina. Currently she is pain-free. History & Record Review Discussion w/independent historian: Patient and Family Additional record(s) reviewed:: Prior inpatient record, Prior outpatient record, Prior ED visit and Prior labs Lab Data Attestation: I reviewed the patient's lab results. Lab results narrative: CBC normal white count Nuflor H&H at their note 79. Platelets 221. Electrolytes unremarkable. Potassium 3.4. Gap 7. Normal BUN and creatinine. Glucose 128. Troponin 6. Labs: Laboratory Results - last 24 hr 10/13/22 10/13/22 11:03 11:03 WBC 4.9 RBC 4.34 Hgb 13.2 Hct 39.8 MCV 91.7 MCH 30.4 MCHC 33.2 RDW Std Deviation 49.5 H RDW Coeff of Noe 14.7 H Plt Count 221 MPV 9.2 Immature Gran % (Auto) 0.400 Neut % (Auto) 51.8 Lymph % (Auto) 35.2 Fleming % (Auto) 8.1 Eos % (Auto) 4.1 Baso % (Auto) 0.4 Absolute Neuts (auto) 2.5 Absolute Lymphs (auto) 1.73 Nucleated RBC % 0 Sodium 139 Potassium 3.4 L Chloride 107 Carbon Dioxide 25.0 Anion Gap 7 BUN 13 Creatinine 0.72 Estim Creat Clear Calc 88.29 Est GFR (MDRD) Af Amer 103 Est GFR (MDRD) Non-Af 85 BUN/Creatinine Ratio 18.0 Glucose 128 H Calcium 9.4 Troponin I High Sens 6 Radiography Chest X-Ray - ED: 1 View, Read by ED Physician, Heart, Lungs, Mediastinum, Bony Structures, No Acute Disease and Chronic Changes Diagnostic Testing: Chest x-ray, portable, single view shows no acute abnormality. Normal cardiac silhouette. Normal lungs. Interpreted by myself. Rhythm Strip Rhythm Strip: Sinus Rhythm Rate: 67 Ectopy: None EKG Initial EKG: Attestation: I personally reviewed and interpreted this EKG as follows: Interpretation: Sinus Rhythm and No Acute Injury Pattern Comments: Normal sinus rhythm rate of 67 no acute signs of AK or ischemia. Discharge Plan Triage Chief Complaint: Chest Other ED Provider: Abraham Palomino Dx/Rx/DC Orders Clinical Impression: Chest pain, Unstable angina Prescriptions: No Action multivitamin Tablet 1 tab PO DAILY methotrexate sodium 2.5 MG tablet 8 tab PO QWEEK Label Comments: TAKE EIGHT TABLETS BY MOUTH ONCE EVERY WEEK Rx Instructions: takes on Sundays if NO S/Sx of infections folic acid 1 MG tablet 2 tab PO DAILY Label Comments: TAKE TWO TABLETS BY MOUTH DAILY hydroxychloroquine 200 MG tablet 1 tab PO BID Label Comments: TAKE ONE TABLET BY MOUTH TWICE DAILY [place] Thyroid 90 MG tablet 90 mg PO DAILY Label Comments: TAKE ONE TABLET BY MOUTH EVERY DAY furosemide 40 mg tablet 20 mg PO DAILY Label Comments: TAKE ONE TABLET DAILY AND ONE-HALF TABLET IN THE AFTERNOON aspirin [Aspirin Low-Strength] 81 mg Tablet,Delayed Release (Dr/Ec) 162 mg PO DAILY aspirin [Aspirin Low-Strength] 81 mg Tablet,Delayed Release (Dr/Ec) 81 mg PO DAILY cholecalciferol (vitamin D3) 125 mcg (5,000 unit) Capsule 125 mcg PO QODAY furosemide 40 mg tablet 40 mg PO DAILY Label Comments: TAKE ONE TABLET DAILY AND ONE-HALF TABLET IN THE AFTERNOON Primary Care Provider: Polina Gilbert Referrals: Polina Gilbert DO [Primary Care Provider] - Disposition Disposition: Acute Care Hospital [facility]
[2022-10-13] MEDS: Aspirin 81 MG TAB.CHEW 324 MG PO (10:51)
--- NOTE | 2022-10-13 11:10 | RAD_ITS ---
STUDY: X-RAY CHEST REASON FOR EXAM: Female, 67 years old. Chest pain TECHNIQUE: Single AP portable view of the chest. COMPARISON: Comparison is made with prior study dated December 29, 2018. FINDINGS: EKG electrodes are seen. The lungs are clear and expanded. There is no demonstrated pleural abnormality. There is calcification of the mitral valve annulus. Normal mediastinum and conrado. Normal visualized pulmonary arteries. Normal visualized aortic arch and descending thoracic aorta. There are diffuse degenerative changes of the visualized thoracic spine. Prior fusion of the lower cervical spine. There is no demonstrated abnormality of the visualized soft tissue structures of the upper abdomen. RAD/Chest 1 View (Portable) IMPRESSION: No acute abnormality seen. Electronically Signed: Corbin Zelaya MD at 12:02 EDT ,
[2022-10-13 11:17] LABS: Absolute Lymphocyte Count 1.73 X10^3/uL (0.83-4.51); Absolute Neutrophil Count 2.5 X10^3/uL (2.0-7.7); Basophil# 0.02 X10^3/uL; Basophil% 0.4 % (0-1); Eosinophils% 4.1 % (0-5); Hematocrit 39.8 % (37-47); Hemoglobin 13.2 g/dL (12.0-15.0); Lymphocyte # 1.73 X10^3/ul (0.83-4.51); Lymphocyte % 35.2 % (19-41); Mean Corp Hgb Conc 33.2 g/dL (32-36); Mean Corpuscular Hgb 30.4 pg (27.0-32.0); Mean Corpuscular Volume 91.7 fL (81-99); Mean Platelet Vol. 9.2 fl (6.2-12.0); Monocyte% 8.1 % (0-10); NRBC Flagged by Analyzer 0 % (0-5); Neutrophil # 2.54 X10^3/uL (2.7-7.7); Neutrophil % 51.8 % (47-70); Platelet Count 221 K/mm3 (150-450); RBC Distribution Width CV 14.7 % (11.6-14.6); RBC Distribution Width SD 49.5 fl (35.1-43.9); Red Blood Count 4.34 M/mm3 (4.2-5.4); White Blood Count 4.9 K/mm3 (4.4-11.0)
[2022-10-13 11:32] LABS: Anion Gap 7 (5-15); BUN 13 mg/dL (7-18); Calcium,Total 9.4 mg/dL (8.5-10.1); Chloride 107 mmol/L (98-107); Creatinine, Serum 0.72 mg/dL (0.55-1.02); EST Glomerular Filtration Rate 85 mL/min (>60); Est Glom Filt Rate - Afr Amer 103 mL/min (>60); Estimated Creatinine Clearance 88.29 ml/min; Glucose 128 mg/dL (74-106); Potassium 3.4 mmol/L (3.5-5.1); Sodium Level 139 mmol/L (136-145); Troponin-I HS (w/2H Reflex) 6 pg/mL (3.0-54.0)
--- NOTE | 2022-10-13 12:03 | PCM.HP.STD ---
HPI - General General Date of Admission: 10/13/22 Date of Service: 10/13/22 Chief Complaint: Chest pressure for 2 weeks mainly exertional type, unstable angina quality HPI Narrative ELDA WADDELL, is a 67 F with multiple comorbidities was sent to ED by PCP Dr. Gilbert for atypical chest pain/pressure for 2 weeks. She describes a chest pressure anteriorly and sometimes back of chest mainly with activity like usual house chores, watering her plants and goes away at rest. Over the last 2 weeks this has become more increasingly frequent, increased duration and less exertion. 1 time she had chest pressure at rest. It is associated with mild shortness of breath but denies diaphoresis, palpitation, syncope or dizziness or nausea/vomiting. No associated cough or fever. PCP did EKG shows normal sinus rhythm with no significant ST-T changes at 61 bpm. Twelve-lead EKG in ER normal sinus rhythm at 67 bpm, no significant ST-T changes. Patient had a stress test in November 2023 along with echo which reported no acute ischemia. First troponin negative. Patient is further admitted. [facility] Medical History Atypical chest pain Essential hypertension History of left heart catheterization (10/03/13) Hyperlipidemia Hypothyroidism Mitral valve stenosis LUIZA on CPAP Osteoarthritis Osteoarthritis of right knee Other spondylosis, lumbosacral region Recurrent UTI Rheumatoid arthritis Home Medications folic acid 1 mg tablet 2 tab PO DAILY SUPPLEMENT 12/29/18 [History Last Taken 10/12/22] hydroxychloroquine 200 mg tablet 1 tab PO BID 12/29/18 [History Last Taken 10/13/22] methotrexate sodium 2.5 mg tablet 8 tab PO QWEEK 12/29/18 [History Last Taken 10/03/22] thyroid (pork) 90 mg tablet ([place] Thyroid) 90 mg PO DAILY THYROID 12/29/18 [History Last Taken 10/13/22] multivitamin 1 tab PO DAILY 06/12/21 [History Last Taken 10/12/22] aspirin 81 mg tablet,delayed release 81 mg PO DAILY HEART HEALTH 10/13/22 [History Last Taken 10/12/22] aspirin 81 mg tablet,delayed release 162 mg PO DAILY HEART HEALTH 10/13/22 [History Last Taken 10/13/22] cholecalciferol (vitamin D3) 125 mcg (5,000 unit) capsule 125 mcg PO QODAY SUPPLEMENT 10/13/22 [History Last Taken 10/11/22] furosemide 40 mg tablet 20 mg PO DAILY FLUID 10/13/22 [History Last Taken 10/12/22] furosemide 40 mg tablet 40 mg PO DAILY FLUID 10/13/22 [History Last Taken 10/13/22] Allergy/AdvReac Type Severity Reaction Status Date / Time nitrofurantoin Allergy Unknown UNKNOWN Verified 10/13/22 10:26 [From Macrobid] amoxicillin Allergy Rash Verified 10/13/22 10:26 losartan AdvReac Intermediate Hypotension Verified 10/13/22 10:26 and dizzy even on 12.5 mg Family History Mother CVA (cerebral vascular accident) Thyroid disorder Father Heart disease Diabetes Grandmother Cancer Surgical History History of hysterectomy (~1981) History of lumbar spinal fusion (03/14/19) Social History Smoking Status: Never smoker alcohol intake: never substance use type: does not use caffeine: Yes Type: coffee Number of servings: 1 ROS ROS Narrative Constitutional: Reports fatigue and weakness. No fever. HEENT: Reports systems reviewed and no addt'l complaints, except as documented Respiratory/Chest: As described in HPI CVS: No history of coronary artery disease but mild mitral stenosis. Mild carotid stenosis. Gastrointestinal: Denies coffee ground emesis, hematemesis or vomiting Genitourinary: Intermittent burning micturition although better after 7 days of antibiotics. Urgency and sometimes urinary incontinence, chronic. Musculoskeletal: Denies acute joint pain. Chronic bilateral knee arthritis. Rheumatoid arthritis and lupus. No acute injury Neurologic: Denies seizure-like symptoms. History of mini strokes in the past. skin: No ulcer. No rash Endocrinology: Reports systems reviewed and no addt'l complaints, except as documented Hematologic/Lymphatic: Reports systems reviewed and no addt'l complaints, except as documented Rest 14 ROS are negative except as mentioned in HPI Vital Signs Vital Signs Vital Signs: 10/13/22 10:24 10/13/22 10:37 10/13/22 10:44 Temperature 97.4 F L Temperature Source Temporal Pulse Rate 66 70 Respiratory Rate 18 13 Blood Pressure 188/102 H 128/75 H Blood Pressure Mean 130 92 Pulse Ox 100 99 Oxygen Delivery Method Room Air Room Air Room Air Weight Weight: 229 lb Body Mass Index (BMI) 46.2 Physical Exam Narrative Physical exam General: Alert, Oriented x3, Cooperative HEENT: Atraumatic, PERRLA, EOMI, Normocephalic Oral: Oral mucosa moist. No Gingival or Mucosal Lesions/ Ulcerations Neck: Supple, No JVD, Negative Carotid Bruits Lungs: Air entry diminished in bilateral lung bases. No crepitation/rhonchi Cardiovascular: Regular rate, Regular Rhythm, Normal S1, Normal S2, No murmurs Abdomen: Bowel Sounds Present, Soft, Non Tender, Non-Distended : No renal angle tenderness. No suprapubic tenderness. Extremities: Mild bilateral below-knee 1+ edema, Capillary Refill Less than 3 Seconds Skin: No rashes, No breakdown Musculoskeletal: Bilateral knee and hip joints arthritis. Wrist and finger joints arthritis, RA. ROM limited at knee and hip joints. No Tenderness to Palpation of Joints or Extremities Neurological: Cranial nerves II-XII grossly intact, DTR 2+/4 and Symmetrical, Neuro grossly intact Psych/Mental Status: Normal Affect, Appropriate. Results Lab / Micro Data Result Diagrams: 10/13/22 11:03 10/13/22 11:03 Labs: Laboratory Results - last 24 hr 10/13/22 11:03: WBC 4.9, RBC 4.34, Hgb 13.2, Hct 39.8, MCV 91.7, MCH 30.4, MCHC 33.2, RDW Std Deviation 49.5 H, RDW Coeff of Noe 14.7 H, Plt Count 221, MPV 9.2, Immature Gran % (Auto) 0.400, Neut % (Auto) 51.8, Lymph % (Auto) 35.2, [place] % (Auto) 8.1, Eos % (Auto) 4.1, Baso % (Auto) 0.4, Absolute Neuts (auto) 2.5, Absolute Lymphs (auto) 1.73, Nucleated RBC % 0 10/13/22 11:03: Sodium 139, Potassium 3.4 L, Chloride 107, Carbon Dioxide 25.0, Anion Gap 7, BUN 13, Creatinine 0.72, Estim Creat Clear Calc 88.29, Est GFR (MDRD) Af Amer 103, Est GFR (MDRD) Non-Af 85, BUN/Creatinine Ratio 18.0, Glucose 128 H, Calcium 9.4, Troponin I High Sens 6 Rhythm Strip Rhythm Strip: Sinus Rhythm Rate: 67 Ectopy: None Assessment & Plan Assessment/Plan (1) Unstable angina: PLAN: Plan This 67-year-old female being admitted for evaluation of unstable angina worsening for 2 weeks. 1. Atypical chest pain most likely unstable angina: Patient is being admitted in PCU. CLAUDIA risk score 4. First troponin negative. EKG showed normal sinus rhythm with no acute ST-T changes. Cycle 2 more cardiac enzymes. As patient had 2D echo and Lexiscan nuclear myocardial perfusion stress test in November 2021 and reported normal therefore requested cardiology consult for diagnostic heart cath. Patient had LHC in 2013. Patient on aspirin 162 mg daily, 2. Mild mitral stenosis: Patient had 2D echo which reported EF 65% with normal LV systolic function, moderate to severe mitral annular calcification with extension to posterior mitral valve leaflet. Trivial MR mild TR. RVSP 32 mmHg. Patient used to follow Dr. Coyne and then Dr. Bradley Ulrich last seen 3 years ago. 3. chronic HFpEF: EF normal as mentioned above but mild LA enlargement. Patient has been on furosemide 60 mg daily for about 4 to 5 years. She also said gained 8 pounds in the last 1 week. Limited echo to see EF and mitral valve. 4. Chronic rheumatology conditions rheumatoid arthritis and SLE: Patient on methotrexate and hydroxychloroquine and folic acid continued. Continue vitamin D. 5. Hypothyroidism: Patient on [place] Thyroid. 6. Recent UTI: Patient completed 7 days of Cipro on 10/12/2022. Repeat UA with urine culture ordered and patient still has mild discomfort/irritation on urination. She further said she sometimes feels increased urgency and rapid rushing of urine. VTE prophylaxis: Lovenox 40 mill subcu daily. Living will/advanced directive/end of life care: Patient does not have living will or advanced directive. She has 3 daughters and 1 son. No designated power of [place] attorney for health. After discussion of benefits/risks procedures involved with full code, DNR CC arrest and DNR CC, the patient and her daughter near the bedside opted for full code. Patient does want artificial life support including intubation, tube feed, ventilator and/chest compression, central venous catheter, vasopressor and DC shock if needed Total time spent in [id number] encounter in discussion of advanced directive 17 minutes. Echo December 18. Left ventricular systolic function is normal. The estimated ejection fraction is 65 %. The left atrium is mildly enlarged. There is moderate to severe mitral annular calcification. Extension of the mitral annular calcification onto the base of the posterior mitral valve leaflet. Trivial mitral valve insufficiency. Mild tricuspid valve insufficiency. Right ventricular systolic pressure estimated to be 32 mmHg. No evidence for diastolic dysfunction. Laboratory Results 10/13/22 11:03: WBC 4.9, RBC 4.34, Hgb 13.2, Hct 39.8, MCV 91.7, MCH 30.4, MCHC 33.2, RDW Std Deviation 49.5 H, RDW Coeff of Noe 14.7 H, Plt Count 221, MPV 9.2, Immature Gran % (Auto) 0.400, Neut % (Auto) 51.8, Lymph % (Auto) 35.2, [place] % (Auto) 8.1, Eos % (Auto) 4.1, Baso % (Auto) 0.4, Absolute Neuts (auto) 2.5, Absolute Lymphs (auto) 1.73, Nucleated RBC % 0 10/13/22 11:03: Sodium 139, Potassium 3.4 L, Chloride 107, Carbon Dioxide 25.0, Anion Gap 7, BUN 13, Creatinine 0.72, Estim Creat Clear Calc 88.29, Est GFR (MDRD) Af Amer 103, Est GFR (MDRD) Non-Af 85, BUN/Creatinine Ratio 18.0, Glucose 128 H, Calcium 9.4, Troponin I High Sens 6 10/13/22 11:03: Phosphorus Pending, Magnesium Pending Charges/Coding Visit Charges Inpatient E&M: 08361 Init Hosp L3 Multi Select Codes Hospitalists' Procedures Procedures: 74399 Advncd Care Plan 30 Min
[2022-10-13 12:36] LABS: Magnesium 2.2 mg/dL (1.6-2.6); Phosphorus 3.6 mg/dL (2.5-4.9)
--- NOTE | 2022-10-13 12:50 | ECHOCS_ITS ---
Reason For Study: Chest pressure, heart failure Procedure This was a 2D Doppler, Color Flow transthoracic echocardiogram. The study was technically difficult. Exam performed portable in patient room. Left Ventricle Normal LV size. Left ventricular systolic function is normal. The estimated ejection fraction is 60 %. Stage 1 diastolic dysfunction. No regional wall motion abnormalities noted. Right Ventricle Normal RV size. Normal systolic function. Atria Normal left atrium. Normal right atrium. Mitral Valve There is mild to moderate mitral annular calcification. Tricuspid Valve Normal tricuspid valve. Mild (1+) tricuspid valve insufficiency. Pulmonary artery systolic pressure is 34 mmHg. Aortic Valve The aortic valve is not well visualized. Pulmonic Valve Normal pulmonic valve. Great Vessels Normal aortic root. The pulmonary artery is normal size. Normal inferior vena cava. Pericardium/Pleural No pericardial effusion. Medication Diluted definity 2ml given slow IV push to enhance endocardial definition. MMode/2D Measurements & Calculations RVDd: 3.3 cm Ao root diam: 2.6 cm LAV(MOD-bp): 52.7 ml LAV(MOD-bp) Indexed: 27.1 ml/m2 LAV(MOD-sp2): 63.4 ml LAV(MOD-sp4): 40.2 ml SV(MOD-sp4): 57.4 ml LVAd ap4: 28.4 cm2 LVAd ap2: 30.4 cm2 LVLd ap4: 7.8 cm LVLd ap2: 7.7 cm EDV(MOD-sp4): 86.0 ml EDV(MOD-sp2): 98.7 ml EDV(sp4-el): 88.1 ml EDV(sp2-el): 101.9 ml LVAs ap4: 14.4 cm2 LVAs ap2: 15.3 cm2 LVLs ap4: 6.2 cm LVLs ap2: 6.2 cm ESV(MOD-sp4): 28.6 ml ESV(MOD-sp2): 31.5 ml ESV(sp4-el): 28.5 ml ESV(sp2-el): 31.9 ml EF(MOD-sp4): 66.8 % EF(MOD-sp2): 68.1 % EF(sp4-el): 67.7 % SV(MOD-sp2): 67.2 ml SV(sp4-el): 59.7 ml LA A4 area: 16.0 cm2 LA dimension(2D): 3.2 cm TAPSE: 1.7 cm RA A4 area: 11.6 cm2 Time Measurements MV dec time: 0.24 sec Doppler Measurements & Calculations MV E max peter: 87.4 cm/sec Lat Peak E' Peter: 10.3 cm/sec Med Peak E' Peter: 7.9 cm/sec MV A max peter: 111.3 cm/sec E/E' lat: 8.5 E/E' med: 11.0 MV E/A: 0.79 MV V2 max: 134.1 cm/sec MV P1/2t max peter: 110.7 cm/sec Ao V2 max: 163.7 cm/sec MV max P.2 mmHg MV P1/2t: 86.9 msec Ao max P.7 mmHg MV V2 mean: 77.4 cm/sec MV dec slope: 373.0 cm/sec2 Ao V2 mean: 106.1 cm/sec MV mean P.8 mmHg Ao mean P.2 mmHg MV V2 VTI: 43.4 cm MVA(P1/2t): 2.5 cm2 Ao V2 VTI: 40.0 cm AV (velocity ratio): 0.66 LV V1 max: 124.8 cm/sec PA V2 max: 90.7 cm/sec TR max peter: 268.4 cm/sec LV V1 max P.2 mmHg TR max P.8 mmHg LV V1 mean P.1 mmHg LV V1 mean: 80.5 cm/sec LV V1 VTI: 26.4 cm ECHO/Echo Complete W/ Contrast Interpretation Summary Normal LV size. Left ventricular systolic function is normal. The estimated ejection fraction is 60 %. Stage 1 diastolic dysfunction. Pulmonary artery systolic pressure is 34 mmHg. Contrast injection was performed. Ordering Physician: Kole Stern Referring Physician: Polina Gilbert M.D. Performed By: Devi Sheriff RDCS
[2022-10-13 13:09] LABS: Reflex Troponin-HS? (from REC) Y
--- NOTE | 2022-10-13 13:40 | EKG12_ITS ---
Test Reason : CHEST PAIN ADMIT Blood Pressure : / mmHG Vent. Rate : 064 BPM Atrial Rate : 064 BPM P-R Int : 166 ms QRS Dur : 088 ms QT Int : 420 ms P-R-T Axes : 057 023 050 degrees QTc Int : 433 ms Normal sinus rhythm Nonspecific ST abnormality Abnormal ECG When compared with ECG of 30-DEC-2018 05:25, No significant change was found Confirmed by MARGIE CHURCH, SANDY ([id number]), restaurant expeditor SERA MAN ([id number]) on 10/14/2022 1:57:33 PM Referred By: TANIA Confirmed By:SANDY HANSON MD
[2022-10-13 13:59] LABS: AST(SGOT) 18 U/L (15-37); Alanine Aminotransfer ALT/SGPT 11 U/L (13-56); Albumin, Serum 3.7 g/dL (3.2-5.0); Alkaline Phosphatase 79 U/L (45-117); Bilirubin, Direct 0.26 mg/dL (0.00-0.30); Globulin 3.4 g/dL (2.2-4.2); Protein, Total 7.1 g/dL (6.4-8.2)
[2022-10-13 14:03] LABS: Troponin-I HS 8 pg/mL (3.0-54.0)
--- NOTE | 2022-10-13 14:25 | PCM.CONS.C ---
Assessment & Plan Assessment/Plan (1) BMI 45.0-49.9, adult: (2) Mitral valve stenosis: QUALIFIERS: Cardiac valve disease etiology: nonrheumatic Qualified Code(s): I34.2 - Nonrheumatic mitral (valve) stenosis (3) History of left heart catheterization: (4) Hyperlipidemia: QUALIFIERS: Hyperlipidemia type: unspecified Qualified Code(s): E78.5 - Hyperlipidemia, unspecified (5) Essential hypertension: (6) LUIZA on CPAP: (7) Unstable angina: PLAN: 67-year-old patient Seen and evaluated in the ER Presenting with symptoms of chest pain She been seen and followed at the cardiology clinic by Dr. Melton Where she had a prior history of cardiac catheterization at [place] in 2013 which showed normal coronary arteries Patient had a history of hypertension Hyperlipidemia Morbid obesity and obstructive sleep apnea and has been on CPAP This presentation she had symptoms of chest pain. Review of the previous evaluation she had a history of mild mitral stenosis, rheumatoid arthritis In November 2021 she had a stress test which showed no reversible ischemia Cardiac care plan recommendations; I discussed in detail the cardiac care plan with the patient, family at bedside Patient has typical angina symptoms of retrosternal chest pain on exertion. With prior evaluation with myocardial perfusion study Showing no reversible myocardial ischemia Will treat as unstable angina and we will assess further by cardiac catheterization. This will be set up tomorrow, by Dr. Ferreira HPI Consult Data Date of Consult: 10/13/22 HPI Narrative Reason for Consultation: Chest pain/unstable angina HPI Narrative: ELDA WADDELL, is a 67 F who presents [facility] Medical History Atypical chest pain Essential hypertension History of left heart catheterization (10/03/13) Hyperlipidemia Hypothyroidism Mitral valve stenosis LUIZA on CPAP Osteoarthritis Osteoarthritis of right knee Other spondylosis, lumbosacral region Recurrent UTI Rheumatoid arthritis Home Medications folic acid 1 mg tablet 2 tab PO DAILY SUPPLEMENT 12/29/18 [History Last Taken 10/12/22] hydroxychloroquine 200 mg tablet 1 tab PO BID 12/29/18 [History Last Taken 10/13/22] methotrexate sodium 2.5 mg tablet 8 tab PO QWEEK 12/29/18 [History Last Taken 10/03/22] thyroid (pork) 90 mg tablet ([place] Thyroid) 90 mg PO DAILY THYROID 12/29/18 [History Last Taken 10/13/22] multivitamin 1 tab PO DAILY 06/12/21 [History Last Taken 10/12/22] aspirin 81 mg tablet,delayed release 81 mg PO DAILY HEART HEALTH 10/13/22 [History Last Taken 10/12/22] aspirin 81 mg tablet,delayed release 162 mg PO DAILY HEART HEALTH 10/13/22 [History Last Taken 10/13/22] cholecalciferol (vitamin D3) 125 mcg (5,000 unit) capsule 125 mcg PO QODAY SUPPLEMENT 10/13/22 [History Last Taken 10/11/22] furosemide 40 mg tablet 20 mg PO DAILY FLUID 10/13/22 [History Last Taken 10/12/22] furosemide 40 mg tablet 40 mg PO DAILY FLUID 10/13/22 [History Last Taken 10/13/22] Allergy/AdvReac Type Severity Reaction Status Date / Time nitrofurantoin Allergy Unknown UNKNOWN Verified 10/13/22 10:26 [From Macrobid] amoxicillin Allergy Rash Verified 10/13/22 10:26 losartan AdvReac Intermediate Hypotension Verified 10/13/22 10:26 and dizzy even on 12.5 mg Family History Mother CVA (cerebral vascular accident) Thyroid disorder Father Heart disease Diabetes Grandmother Cancer Surgical History History of hysterectomy (~1981) History of lumbar spinal fusion (03/14/19) Social History Smoking Status: Never smoker alcohol intake: never substance use type: does not use caffeine: Yes Type: coffee Number of servings: 1 ROS ROS Narrative 14 point review of system is unremarkable apart from current presentation Patient presented with retrosternal chest pain described as pressure and heaviness noted the symptoms mainly on exertion Especially walking and when she is working in her house associated with fatigue infrequent palpitation shortness of breath Physical Exam Narrative Underlying cardiac rhythm is normal sinus Cardiovascular domination S1-S2 regular Chest examination clear to auscultation bilaterally Examination lower extremity no lower extremity edema, pedal pulses palpable Risk Stratification Risk Stratification Applicable: Yes Age >/= 65: Yes >/= 3 CAD Risk Factors (HTN, HLD, DM, family hx of CAD, or current smoker): Yes Aspirin Use in the Past 7 Days: Yes Severe Angina (>/= episodes in 24 hours): Yes EKG ST Changes >/= 0.5mm: No Positive Cardiac Marker: No CLAUDIA Risk Stratification Score: 4 CLAUDIA % Risk: 20% Risk Objective Data Vital Signs: Vital Signs Temp Pulse Resp BP Pulse Ox O2 Del Method 97.3 F L 65 18 135/66 H 100 Room Air 10/13/22 13:25 10/13/22 13:25 10/13/22 13:25 10/13/22 13:25 10/13/22 13:25 10/13/22 13:25 Oxygen Delivery Method Room Air Weight: 226 lb 10.163 oz Body Mass Index (BMI) 45.8 Lab / Micro Data Result Diagrams: 10/13/22 11:03 10/13/22 11:03 Labs: Laboratory Results - last 24 hr 10/13/22 11:03: WBC 4.9, RBC 4.34, Hgb 13.2, Hct 39.8, MCV 91.7, MCH 30.4, MCHC 33.2, RDW Std Deviation 49.5 H, RDW Coeff of Noe 14.7 H, Plt Count 221, MPV 9.2, Immature Gran % (Auto) 0.400, Neut % (Auto) 51.8, Lymph % (Auto) 35.2, [place] % (Auto) 8.1, Eos % (Auto) 4.1, Baso % (Auto) 0.4, Absolute Neuts (auto) 2.5, Absolute Lymphs (auto) 1.73, Nucleated RBC % 0 10/13/22 11:03: Sodium 139, Potassium 3.4 L, Chloride 107, Carbon Dioxide 25.0, Anion Gap 7, BUN 13, Creatinine 0.72, Estim Creat Clear Calc 88.29, Est GFR (MDRD) Af Amer 103, Est GFR (MDRD) Non-Af 85, BUN/Creatinine Ratio 18.0, Glucose 128 H, Calcium 9.4, Troponin I High Sens 6 10/13/22 11:03: Phosphorus 3.6, Magnesium 2.2 10/13/22 13:20: Total Bilirubin 0.80, Direct Bilirubin 0.26, AST 18, ALT 11 L, Alkaline Phosphatase 79, Total Protein 7.1, Albumin 3.7, Globulin 3.4 10/13/22 13:20: Troponin I High Sens 8 Rhythm Strip Rhythm Strip: Sinus Rhythm Rate: 67 Ectopy: None Cardiology Labs/Tests 10/13/22 11:03: WBC 4.9, RBC 4.34, Hgb 13.2, Hct 39.8, MCV 91.7, MCH 30.4, MCHC 33.2, Plt Count 221, MPV 9.2, Immature Gran % (Auto) 0.400, Neut % (Auto) 51.8, Lymph % (Auto) 35.2, [place] % (Auto) 8.1, Eos % (Auto) 4.1, Baso % (Auto) 0.4, Absolute Neuts (auto) 2.5, Nucleated RBC % 0 10/13/22 11:03: Sodium 139, Potassium 3.4 L, Chloride 107, Carbon Dioxide 25.0, Anion Gap 7, BUN 13, Creatinine 0.72, Est GFR (MDRD) Af Amer 103, Est GFR (MDRD) Non-Af 85, BUN/Creatinine Ratio 18.0, Glucose 128 H, Calcium 9.4 10/13/22 11:03: Phosphorus 3.6, Magnesium 2.2 10/13/22 13:20: Total Bilirubin 0.80, Direct Bilirubin 0.26 Rhythm: EKG: ECHO: Stress Test: Cardiac Cath: PCI: CT Surgery: Holter monitor: EPS: PPM: CXR: Chest CT Scan: Radiography Diagnostic Testing: Radiology Impression Chest X-Ray 10/13/22 11:10 IMPRESSION: No acute abnormality seen. Electronically Signed: Corbin Zelaya MD at 12:02 EDT ,
[2022-10-13] MEDS: Metoprolol Tartrate 25 MG Tablet 12.5 MG PO ×2 (14:50→22:14)
[2022-10-13] MEDS: Enoxaparin 40 MG/0.4 ML Syringe SC (14:51)
[2022-10-13] MEDS: 0.9% Saline Lock 10 ML Syringe IV (14:51)
[2022-10-13] MEDS: Nitroglycerin Oint 1 INCH PACKET TD ×2 (14:53→18:16)
[2022-10-13 17:50] LABS: Troponin-I HS 7 pg/mL (3.0-54.0)
[2022-10-13] MEDS: Furosemide 20 MG Tablet PO (18:00)
[2022-10-13] MEDS: Hydroxychloroquine 200 MG Tablet PO (21:12)
[2022-10-13 21:25] LABS: Bacteria 0 SEEN /hpf (None Seen); Mucous, Urine 0 SEEN /hpf (<or=2+); Red Blood Cells-Urine 0 SEEN /hpf (0-5); Squamous Epithelial Cells - UA 0 SEEN /hpf (5-10); White Blood Cells 0 SEEN /hpf (0-5)
[2022-10-13 21:26] LABS: Color, Urine Straw (Yellow); Glucose, Dipstick Normal (Normal); Ketone-Dipstick Negative (Negative); Leukocyte Esterase-Dipstick 25 /ul (Negative); Nitrite-Dipstick Negative (Negative); Occult Blood-Urine Negative /ul (Negative); Protein-Dipstick Negative (Negative); Urine Bilirubin Dipstick Negative (Negative); Urine Clarity Clear (Clear); Urine Urobilinogen Normal (Normal); Urine pH 6.5 (5.0 - 8.0)
[2022-10-14] VITALS (13 sets, daily range): BP systolic 104–133; BP diastolic 56–88; PULSE 52–61; RESP 16–18; TEMP 36.4–36.6; O2SAT 94–100; BMI 45.7
--- NOTE | 2022-10-14 00:28 | PCM.HOSP.N ---
Hospitalist Note BP decreasing on now scheduled nitro paste. Will decrease to 1/2 inch from 1 inch paste and continue to monitor. CP reported per staff only with activity.
[2022-10-14 05:02] LABS: Absolute Lymphocyte Count 1.73 X10^3/uL (0.83-4.51); Absolute Neutrophil Count 2.3 X10^3/uL (2.0-7.7); Basophil# 0.03 X10^3/uL; Basophil% 0.6 % (0-1); Eosinophil# 0.25 X10^3/uL; Eosinophils% 5.3 % (0-5); Hematocrit 37.4 % (37-47); Hemoglobin 12.4 g/dL (12.0-15.0); Lymphocyte # 1.73 X10^3/ul (0.83-4.51); Lymphocyte % 36.4 % (19-41); Mean Corp Hgb Conc 33.2 g/dL (32-36); Mean Corpuscular Volume 93.5 fL (81-99); Mean Platelet Vol. 9.2 fl (6.2-12.0); Monocyte# 0.46 X10^3/uL; Monocyte% 9.7 % (0-10); NRBC Flagged by Analyzer 0 % (0-5); Neutrophil # 2.27 X10^3/uL (2.7-7.7); Neutrophil % 47.8 % (47-70); Platelet Count 220 K/mm3 (150-450); RBC Distribution Width CV 14.8 % (11.6-14.6); RBC Distribution Width SD 50.9 fl (35.1-43.9); White Blood Count 4.8 K/mm3 (4.4-11.0)
[2022-10-14 05:38] LABS: Anion Gap 5 (5-15); BUN 16 mg/dL (7-18); BUN/Creat Ratio 23.8 RATIO (10-20); Calcium,Total 8.6 mg/dL (8.5-10.1); Chloride 109 mmol/L (98-107); Cholesterol 146 mg/dL (200); Creatinine, Serum 0.67 mg/dL (0.55-1.02); EST Glomerular Filtration Rate 93 mL/min (>60); Est Glom Filt Rate - Afr Amer 112 mL/min (>60); Estimated Creatinine Clearance 87.38 ml/min; Glucose 97 mg/dL (74-106); High Density Lipoprotein 53 mg/dL; Potassium 3.5 mmol/L (3.5-5.1); Sodium Level 141 mmol/L (136-145); T4 Free Direct 0.76 ng/dL (0.76-1.46); Thyroid Stim Hormone (TSH) 3.55 uIU/mL (0.358-3.74); Triglycerides 71 mg/dL; Very Low Density Lipoprotein 14 mg/dL (5-40)
--- NOTE | 2022-10-14 05:55 | EKG12_ITS ---
Test Reason : AM EKG Blood Pressure : / mmHG Vent. Rate : 054 BPM Atrial Rate : 054 BPM P-R Int : 170 ms QRS Dur : 092 ms QT Int : 456 ms P-R-T Axes : 055 011 006 degrees QTc Int : 432 ms Sinus bradycardia Otherwise normal ECG When compared with ECG of 13-OCT-2022 15:21, MANUAL COMPARISON REQUIRED, DATA IS UNCONFIRMED Confirmed by MARGIE CHURCH, SANDY ([id number]), advertising editor SERA MAN ([id number]) on 10/14/2022 1:57:03 PM Referred By: Confirmed By:SANDY HANSON MD
[2022-10-14] MEDS: Aspirin E.C. 81 MG Tablet 162 MG PO (06:31)
[2022-10-14] MEDS: Metoprolol Tartrate 25 MG Tablet 12.5 MG PO (06:32)
[2022-10-14] MEDS: Nitroglycerin Oint 1 INCH PACKET 0.5 INCH TD (06:33)
[2022-10-14] MEDS: Lisinopril 2.5 MG Tablet PO (06:33)
--- NOTE | 2022-10-14 07:28 | NURSING ---
Report called to Nurse Corona in optical laboratory mechanic.
--- NOTE | 2022-10-14 07:59 | PN.HOSP_ITS ---
Reason for Visit Reason for Visit: Diagnoses Hyperlipidemia, unspecified (10/13/22) Obstructive sleep apnea (adult) (pediatric) (10/13/22) Essential (primary) hypertension (10/13/22) Unstable angina (10/13/22) Nonrheumatic mitral (valve) stenosis (10/13/22) Body mass index [BMI] 45.0-49.9, adult (10/13/22) Other specified postprocedural states (10/13/22) Dependence on other enabling machines and devices (10/13/22) Objective Data Objective Data Vital Signs: Vital Signs Temp Pulse Resp BP Pulse Ox O2 Del Method 98 F 57 L 16 125/61 H 97 Room Air 10/14/22 06:23 10/14/22 06:33 10/14/22 06:23 10/14/22 06:33 10/14/22 06:23 10/14/22 06:23 Oxygen Delivery Method Room Air Weight: 226 lb 6.636 oz Body Mass Index (BMI) 45.7 Intake & Output: Intake and Output for Last 24 Hours 10/12/22 10/13/22 10/14/22 23:59 23:59 23:59 Intake Total 720 / 1020 300 / 300 Output Total 600 / 600 Balance 720 / 670 -300 / -300 Lab / Micro Data Result Diagrams: 10/14/22 04:35 10/14/22 04:35 Labs: Laboratory Results - last 24 hr 10/13/22 11:03: WBC 4.9, RBC 4.34, Hgb 13.2, Hct 39.8, MCV 91.7, MCH 30.4, MCHC 33.2, RDW Std Deviation 49.5 H, RDW Coeff of Noe 14.7 H, Plt Count 221, MPV 9.2, Immature Gran % (Auto) 0.400, Neut % (Auto) 51.8, Lymph % (Auto) 35.2, [place] % (Auto) 8.1, Eos % (Auto) 4.1, Baso % (Auto) 0.4, Absolute Neuts (auto) 2.5, Absolute Lymphs (auto) 1.73, Nucleated RBC % 0 10/13/22 11:03: Sodium 139, Potassium 3.4 L, Chloride 107, Carbon Dioxide 25.0, Anion Gap 7, BUN 13, Creatinine 0.72, Estim Creat Clear Calc 88.29, Est GFR (MD RD) Af Amer 103, Est GFR (MDRD) Non-Af 85, BUN/Creatinine Ratio 18.0, Glucose 128 H, Calcium 9.4, Troponin I High Sens 6 10/13/22 11:03: Phosphorus 3.6, Magnesium 2.2 10/13/22 13:20: Total Bilirubin 0.80, Direct Bilirubin 0.26, AST 18, ALT 11 L, Alkaline Phosphatase 79, Total Protein 7.1, Albumin 3.7, Globulin 3.4 10/13/22 13:20: Troponin I High Sens 8 10/13/22 17:05: Troponin I High Sens 7 10/13/22 20:50: Urine Color Straw, Urine Clarity Clear, Urine pH 6.5, Ur Specific [place] 1.010, Urine Protein Negative, Urine Glucose (UA) Normal, Urine Ketones Negative, Urine Occult Blood Negative, Urine Nitrite Negative, Urine Bilirubin Negative, Urine Urobilinogen Normal, Ur Leukocyte Esterase 25 H, Urine RBC 0 SEEN, Urine WBC 0 SEEN, Ur Squamous Epith Cells 0 SEEN, Urine Bacteria 0 SEEN, Urine Mucus 0 SEEN 10/14/22 04:35: WBC 4.8, RBC 4.00 L, Hgb 12.4, Hct 37.4, MCV 93.5, MCH 31.0, MCHC 33.2, RDW Std Deviation 50.9 H, RDW Coeff of Noe 14.8 H, Plt Count 220, MPV 9.2, Immature Gran % (Auto) 0.200, Neut % (Auto) 47.8, Lymph % (Auto) 36.4, [place] % (Auto) 9.7, Eos % (Auto) 5.3 H, Baso % (Auto) 0.6, Absolute Neuts (auto) 2.3, Absolute Lymphs (auto) 1.73, Nucleated RBC % 0 10/14/22 04:35: Sodium 141, Potassium 3.5, Chloride 109 H, Carbon Dioxide 27.0, Anion Gap 5, BUN 16, Creatinine 0.67, Estim Creat Clear Calc 87.38, Est GFR (MDRD) Af Amer 112, Est GFR (MDRD) Non-Af 93, BUN/Creatinine Ratio 23.8 H, Glucose 97, Calcium 8.6, Triglycerides 71, Cholesterol 146, LDL Cholesterol 79, VLDL Cholesterol 14, HDL Cholesterol 53, TSH 3.55, Free T4 0.76 Radiography Diagnostic Testing: Radiology Impression Chest X-Ray 10/13/22 11:10 IMPRESSION: No acute abnormality seen. Electronically Signed: Corbin Zelaya MD at 12:02 EDT , Echocardiogram 10/13/22 12:50 Interpretation Summary Normal LV size. Left ventricular systolic function is normal. The estimated ejection fraction is 60 %. Stage 1 diastolic dysfunction. Pulmonary artery systolic pressure is 34 mmHg. Contrast injection was performed. Ordering Physician: Kole Stern Referring Physician: Polina Gilbert M.D. Performed By: Devi Sheriff RDCS Rhythm Strip Rhythm Strip: Sinus Rhythm Rate: 67 Ectopy: None Physical Exam Narrative Physical exam General: Alert, Oriented x3, Cooperative HEENT: Atraumatic, PERRLA, EOMI, Normocephalic Oral: Oral mucosa moist. No Gingival or Mucosal Lesions/ Ulcerations Neck: Supple, No JVD, Negative Carotid Bruits Lungs: Air entry diminished in bilateral lung bases. No crepitation/rhonchi Cardiovascular: Regular rate, Regular Rhythm, Normal S1, Normal S2, No murmurs Abdomen: Bowel Sounds Present, Soft, Non Tender, Non-Distended : No renal angle tenderness. No suprapubic tenderness. Extremities: Mild bilateral below-knee 1+ edema, Capillary Refill Less than 3 Seconds Skin: No rashes, No breakdown Musculoskeletal: Bilateral knee and hip joints arthritis. Wrist and finger joints arthritis, RA. ROM limited at knee and hip joints. No Tenderness to Palpation of Joints or Extremities Neurological: Cranial nerves II-XII grossly intact, DTR 2+/4 and Symmetrical, Neuro grossly intact Psych/Mental Status: Normal Affect, Appropriate. Assessment & Plan Assessment/Plan (1) Unstable angina: PLAN: Plan This 67-year-old female being admitted for evaluation of unstable angina worsening for 2 weeks. 1. Atypical chest pain most likely unstable angina: Patient is being admitted in PCU. CLAUDIA risk score 4. First troponin negative. EKG showed normal sinus rhythm with no acute ST-T changes. Cycle 2 more cardiac enzymes. As patient had 2D echo and Lexiscan nuclear myocardial perfusion stress test in November 2021 and reported normal therefore requested cardiology consult for diagnostic heart cath. Patient had LHC in 2013. Patient on aspirin 162 mg daily, 2. Mild mitral stenosis: Patient had 2D echo which reported EF 65% with normal LV systolic function, moderate to severe mitral annular calcification with extension to posterior mitral valve leaflet. Trivial MR mild TR. RVSP 32 mmHg. Patient used to follow Dr. Coyne and then Dr. Bradley Ulrich last seen 3 years ago. 3. chronic HFpEF: EF normal as mentioned above but mild LA enlargement. Patient has been on furosemide 60 mg daily for about 4 to 5 years. She also said gained 8 pounds in the last 1 week. Limited echo to see EF and mitral valve. 4. Chronic rheumatology conditions rheumatoid arthritis and SLE: Patient on methotrexate and hydroxychloroquine and folic acid continued. Continue vitamin D. 5. Hypothyroidism: Patient on [place] Thyroid. 6. Recent UTI: Patient completed 7 days of Cipro on 10/12/2022. Repeat UA with urine culture ordered and patient still has mild discomfort/irritation on urination. She further said she sometimes feels increased urgency and rapid rushing of urine. VTE prophylaxis: Lovenox 40 mill subcu daily. Living will/advanced directive/end of life care: Patient does not have living will or advanced directive. She has 3 daughters and 1 son. No designated power of transactional attorney for health. After discussion of benefits/risks procedures involved with full code, DNR CC arrest and DNR CC, the patient and her daughter near the bedside opted for full code. Patient does want artificial life support including intubation, tube feed, ventilator and/chest compression, central venous catheter, vasopressor and DC shock if needed Total time spent in [id number] encounter in discussion of advanced directive 17 minutes. Echo [place] 22. Left ventricular systolic function is normal. The estimated ejection fraction is 65 %. The left atrium is mildly enlarged. There is moderate to severe mitral annular calcification. Extension of the mitral annular calcification onto the base of the posterior mitral valve leaflet. Trivial mitral valve insufficiency. Mild tricuspid valve insufficiency. Right ventricular systolic pressure estimated to be 32 mmHg. No evidence for diastolic dysfunction. Laboratory Results 10/13/22 11:03: WBC 4.9, RBC 4.34, Hgb 13.2, Hct 39.8, MCV 91.7, MCH 30.4, MCHC 33.2, RDW Std Deviation 49.5 H, RDW Coeff of Noe 14.7 H, Plt Count 221, MPV 9.2, Immature Gran % (Auto) 0.400, Neut % (Auto) 51.8, Lymph % (Auto) 35.2, [place] % (Auto) 8.1, Eos % (Auto) 4.1, Baso % (Auto) 0.4, Absolute Neuts (auto) 2.5, Absolute Lymphs (auto) 1.73, Nucleated RBC % 0 10/13/22 11:03: Sodium 139, Potassium 3.4 L, Chloride 107, Carbon Dioxide 25.0, Anion Gap 7, BUN 13, Creatinine 0.72, Estim Creat Clear Calc 88.29, Est GFR (MDRD) Af Amer 103, Est GFR (MDRD) Non-Af 85, BUN/Creatinine Ratio 18.0, Glucose 128 H, Calcium 9.4, Troponin I High Sens 6 10/13/22 11:03: Phosphorus Pending, Magnesium Pending
--- NOTE | 2022-10-14 08:27 | CL.D_ITS ---
Patient Name: ELDA WADDELL Study Date: 10/14/2022 Performing: Francisco Ferreira MD Ht: 59 inches 149.86 cm : 1955 Wt: 226.41 lbs 102.7 kg Age: 67 Gender: female BSA: 1.94 PROCEDURE(S) PERFORMED DC02-(63535)C/COR CLINICAL PROFILE AND INDICATIONS Indications: Suspected CAD Heart Failure: None Stress/Imaging Stress/Image Study Performed: No CAD Presentations: Unstable angina. CONCLUSIONS Normal coronary arteries Normal LV size, wall motion,and systolic function RECOMMENDATIONS Medical therapy DESCRIPTION OF PROCEDURE The patient arrived to the procedure lab. The risks and benefits of the procedure as well as a full description of our services here and current unavailability of surgical backup were fully explained to the patient and/or their significant other prior to the catheterization. The Timeout was completed, verifying the correct patient and procedure. The patient's procedural site was prepped and draped in the usual fashion. Local anesthetic was given subcutaneously to right ulnar region with Lidocaine 2%. Using a modified Seldinger technique, arterial access was obtained via the right ulnar a 6Fr sheath was inserted. Left Coronary Artery selective angiography was performed in multiple views using a 5 Fr. 4.0 Frakes catheter. Right Coronary Artery selective angiography was then performed in multiple views using a 5 Fr. JR 5 catheter. Left Ventriculography was performed in PERUVIAN projection using a 5 Fr. Pigtail catheter.The arterial sheath was pulled and a TR Band was applied for hemostasis w/ 10ml air CORONARY ANGIOGRAPHY DOMINANCE: Right Dominant LEFT HEART ASSESSMENT Left Ventricular Ejection Fraction: by LV Gram 60 % Normal LV wall motion Normal Left Ventricular systolic function LEFT MAIN: Angiographically normal LEFT ANTERIOR DESCENDING ARTERY: Angiographically normal CIRCUMFLEX ARTERY: Angiographically normal RIGHT CORONARY ARTERY: Angiographically normal COMPLICATIONS No Complications PROCEDURE MEDICATIONS Versed 1 mg IV Fentanyl 50 mcg IV Versed 1 mg IV Oxygen: 2 L/min via nasal cannula Heparin given IA 10/14/2022 08:09:42 Nitro Paste 0.5 in removed from right arm 10/14/2022 08:23:48 Verapamil 2.5mg, 3000 units of Heparin given IA 10/14/2022 08:09:42 SUMMARY OF HEMODYNAMIC DATA Time AIR REST ECG 07:42:28 AO 121/65 (87) SA 08:12:08 Signed By Francisco Ferreira MD On 10/14/2022 08:27:14 Francisco Ferreira MD
--- NOTE | 2022-10-14 09:18 | DCINST_ITS ---
Discharge Instructions Diet Discharge Diet: 2000 mg Sodium Diet Activity Discharge Activity: Return to Normal Activity Weight Bearing Status: Weight bearing as tolerated Dressing / Incision Call your doctor if you observe: Fever of 101 or Higher, Coldness, Increased Pain, Numbness or Tingling, Change in Color, Inability to urinate, Inability to have a bowel movement, Using more than 1 pad per hour, Shortness of breath, Dizziness, Fainting spells, Swelling in the ankles, Chest pain, Prolonged hiccupping, Increased palpitations (irregular heartbeat) and Calf discomfort Follow Up Care When: IN 2 WEEKS Test Results: Test results from this visit will be discussed in further detail at your follow- up appointment, if applicable. Discharge Plan Admission Admit Date/Time: 10/13/22 11:49 Primary Reason for Your Visit: Atypical chest pain possible unstable angina Attending Provider: Kole Stern Primary Care Provider: Polina Gilbert Consulting Providers: Sharyn Robertson Discharge Orders/Prescriptions Prescriptions: New atorvastatin 40 mg Tablet 20 mg PO QHS 30 Days Qty: 15 0RF sennosides-docusate sodium [Stool Softener-Stimulant Laxat] 8.6-50 mg Tablet 2 tab PO BID PRN PRN (Reason: Constipation) Qty: 0 0RF Rx Instructions: OTC nitroglycerin 0.4 mg Tablet, Sublingual 0.4 mg sublingual Q5M PRN (Reason: Cardiac/Chest Pain) Qty: 30 0RF lisinopril 2.5 mg Tablet 2.5 mg PO DAILY 30 Days Qty: 30 0RF Rx Instructions: Hold for SBP less than 110 mmHg metoprolol tartrate 25 mg Tablet 12.5 mg PO BID 30 Days Qty: 30 0RF Rx Instructions: Hold for heart less than 50 or systolic blood pressure less than 100 mmHg. Continued multivitamin Tablet 1 tab PO DAILY methotrexate sodium 2.5 MG tablet 8 tab PO QWEEK Label Comments: TAKE EIGHT TABLETS BY MOUTH ONCE EVERY WEEK Rx Instructions: takes on Sundays if NO S/Sx of infections folic acid 1 MG tablet 2 tab PO DAILY Label Comments: TAKE TWO TABLETS BY MOUTH DAILY hydroxychloroquine 200 MG tablet 1 tab PO BID Label Comments: TAKE ONE TABLET BY MOUTH TWICE DAILY [place] Thyroid 90 MG tablet 90 mg PO DAILY Label Comments: TAKE ONE TABLET BY MOUTH EVERY DAY furosemide 40 mg tablet 20 mg PO DAILY Label Comments: TAKE ONE TABLET DAILY AND ONE-HALF TABLET IN THE AFTERNOON aspirin 81 mg Tablet,Delayed Release (Dr/Ec) 162 mg PO DAILY aspirin 81 mg Tablet,Delayed Release (Dr/Ec) 81 mg PO DAILY cholecalciferol (vitamin D3) 125 mcg (5,000 unit) Capsule 125 mcg PO QODAY furosemide 40 mg tablet 40 mg PO DAILY Label Comments: TAKE ONE TABLET DAILY AND ONE-HALF TABLET IN THE AFTERNOON Referrals / Follow Up: Polina Gilbert DO [Primary Care Provider] - Within 2 Weeks Disposition Disposition (needs filled in before D/C Order can be placed): Home, Self Care
[2022-10-14] MEDS: Enoxaparin 40 MG/0.4 ML Syringe SC (09:26)
[2022-10-14] MEDS: Furosemide 40 MG Tablet PO (09:26)
[2022-10-14] MEDS: Thyroid 60 MG Tablet 90 MG PO (09:26)
[2022-10-14] MEDS: Folic Acid 1 MG Tablet 2 MG PO (09:27)
[2022-10-14] MEDS: Hydroxychloroquine 200 MG Tablet PO (09:27)
[2022-10-14] MEDS: Multivitamins,Therapeutic Tablet 1 TABLET PO (09:27)
--- NOTE | 2022-10-14 09:58 | VDLE_ITS ---
Reason For Study: Bilateral Leg Swelling RIGHT LEFT GSV is normal. GSV is normal. CFV is compressible, spontaneous, competent CFV is compressible, spontaneous, competent, and demonstrates pulsatile venous flow. and demonstrates pulsatile venous flow. FV is compressible, spontaneous, phasic, FV is compressible, spontaneous, phasic, competent and demonstrates normal competent and demonstrates normal augmentation. augmentation. POP V is compressible, spontaneous, phasic, POP V is compressible, spontaneous, phasic, competent and demonstrates normal competent and demonstrates normal augmentation. augmentation. T/P Trunk is compressible. T/P Trunk is compressible. PTV is compressible. PTV is compressible. RT PerV is compressible. LT PerV is compressible. Procedure This is a venous duplex using B-mode, color flow and spectral Doppler. Exam performed portable in patient room. The exam was diagnostic. A preliminary report was called and/or faxed to PCU tap dancer. VL/Venous Duplex US - [place] Extrem Interpretation Summary Deep veins of the bilateral lower extremities are patent and compressible segme ntally. There is no evidence of bilateral lower extremity deep vein thrombosis. The bilateral great saphenous veins appear patent and compressible segmentally. Ordering Physician: Kole Stern Referring Physician: Polina Gilbert M.D. Performed By: Lasha Lisa RVT
--- NOTE | 2022-10-14 11:35 | DS.PCM_ITS ---
Providers Date of Admission: 10/13/22 Date of Discharge: 10/14/22 Primary Care Physician: Dr. Polina Gilbert, Consultations 10/13/22 13:40 Consult: Cardiology Routine Consulting Provider: Sharyn Robertson Reason for Consult: unstable angina for 2 wks EMERGENT Consult: No MD Notified: Yes Date Notified: 10/13/22 Time Notified: 12:30 Method of Notification: Verbal Reason For Visit: CHEST PAIN Diagnosis Discharge Diagnosis (1) Unstable angina: Status: Acute Code(s): I20.0 - Unstable angina Plan This 67-year-old female being admitted for evaluation of unstable angina worsening for 2 weeks. 1. Atypical chest pain most likely unstable angina: Patient is being admitted in PCU. CLAUDIA risk score 4. First troponin negative. EKG showed normal sinus rhythm with no acute ST-T changes. Cycle 2 more cardiac enzymes. As patient had 2D echo and Lexiscan nuclear myocardial perfusion stress test in November 2021 and reported normal therefore requested cardiology consult for diagnostic heart cath. Patient had LHC in 2013. Patient on aspirin 162 mg daily, 10/14: Serial troponins negative. Non-STEMI ruled out. Cardiac cath was done and shows EF 60% with normal LV wall motion and systolic function. Fasting profile shows LDL 79, TC 146 HDL normal. TSH and free T4 in normal limit. Medical management for unstable angina with isosorbide mononitrate, low-dose metoprolol 12.5 mg twice daily, lisinopril 2.5 mg and atorvastatin 20 mg daily at bedtime prescribed and sent to patient's preferred pharmacy. 2. Mild mitral stenosis: Patient had 2D echo which reported EF 65% with normal LV systolic function, moderate to severe mitral annular calcification with extension to posterior mitral valve leaflet. Trivial MR mild TR. RVSP 32 mmHg. Patient used to follow Dr. Coyne and then Dr. Huerta Prepidil last seen 3 years ago. 10/14: Repeat echo shows mild to moderate mitral annular calcification. Technically difficult study. EF 60% with stage I diastolic dysfunction. No RWMA. The left atrium. Pulmonary artery normal size. Mild TR PASP 34 mmHg. 3. chronic HFpEF: EF normal as mentioned above but mild LA enlargement. Patient has been on furosemide 60 mg daily for about 4 to 5 years. She also said gained 8 pounds in the last 1 week. Limited echo to see EF and mitral valve. 10/14 venous duplex was negative for DVT. Advised to hold Lasix if systolic blood pressure less than 110 mmHg 4. Chronic rheumatology conditions rheumatoid arthritis and SLE: Patient on methotrexate and hydroxychloroquine and folic acid continued. Continue vitamin D. 5. Hypothyroidism: Patient on [place] Thyroid. 6. Recent UTI: Patient completed 7 days of Cipro on 10/12/2022. Repeat UA with urine culture ordered and patient still has mild discomfort/irritation on urination. She further said she sometimes feels increased urgency and rapid rushing of urine. 10/14: UA shows LE 25 0 and RBC 0 WBC. UTI was treated as an outpatient. Urine culture pending. VTE prophylaxis: Lovenox 40 mill subcu daily. Living will/advanced directive/end of life care: Patient does not have living will or advanced directive. She has 3 daughters and 1 son. 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 After discussion of benefits/risks procedures involved with full code, DNR CC arrest and DNR CC, the patient and her daughter near the bedside opted for full code. Patient does want artificial life support including intubation, tube feed, ventilator and/chest compression, central venous catheter, vasopressor and DC shock if needed Total time spent in [id number] encounter in discussion of advanced directive 17 minutes. Echo December 18. Left ventricular systolic function is normal. The estimated ejection fraction is 65 %. The left atrium is mildly enlarged. There is moderate to severe mitral annular calcification. Extension of the mitral annular calcification onto the base of the posterior mitral valve leaflet. Trivial mitral valve insufficiency. Mild tricuspid valve insufficiency. Right ventricular systolic pressure estimated to be 32 mmHg. No evidence for diastolic dysfunction. Laboratory Results 10/13/22 11:03: WBC 4.9, RBC 4.34, Hgb 13.2, Hct 39.8, MCV 91.7, MCH 30.4, MCHC 33.2, RDW Std Deviation 49.5 H, RDW Coeff of Noe 14.7 H, Plt Count 221, MPV 9.2, Immature Gran % (Auto) 0.400, Neut % (Auto) 51.8, Lymph % (Auto) 35.2, [place] % (Auto) 8.1, Eos % (Auto) 4.1, Baso % (Auto) 0.4, Absolute Neuts (auto) 2.5, Absolute Lymphs (auto) 1.73, Nucleated RBC % 0 10/13/22 11:03: Sodium 139, Potassium 3.4 L, Chloride 107, Carbon Dioxide 25.0, Anion Gap 7, BUN 13, Creatinine 0.72, Estim Creat Clear Calc 88.29, Est GFR (MDRD) Af Amer 103, Est GFR (MDRD) Non-Af 85, BUN/Creatinine Ratio 18.0, Glucose 128 H, Calcium 9.4, Troponin I High Sens 6 10/13/22 11:03: Phosphorus Pending, Magnesium Pending Medications at Discharge Home Medications folic acid 1 mg tablet 2 tab PO DAILY SUPPLEMENT 12/29/18 hydroxychloroquine 200 mg tablet 1 tab PO BID 12/29/18 methotrexate sodium 2.5 mg tablet 8 tab PO QWEEK 12/29/18 thyroid (pork) 90 mg tablet ([place] Thyroid) 90 mg PO DAILY THYROID 12/29/18 multivitamin 1 tab PO DAILY 06/12/21 aspirin 81 mg tablet,delayed release 81 mg PO DAILY [facility] 10/13/22 aspirin 81 mg tablet,delayed release 162 mg PO DAILY [facility] 10/13/22 cholecalciferol (vitamin D3) 125 mcg (5,000 unit) capsule 125 mcg PO QODAY SUPPLEMENT 10/13/22 furosemide 40 mg tablet 20 mg PO DAILY FLUID 10/13/22 furosemide 40 mg tablet 40 mg PO DAILY FLUID 10/13/22 atorvastatin 40 mg tablet 20 mg PO QHS 30 days #15 tabs 10/14/22 isosorbide mononitrate 30 mg tablet,extended release 24 hr 30 mg PO DAILY #30 tabs 10/14/22 lisinopril 2.5 mg tablet 2.5 mg PO DAILY 30 days #30 tabs 10/14/22 metoprolol tartrate 25 mg tablet 12.5 mg PO BID 30 days #30 tabs 10/14/22 nitroglycerin 0.4 mg sublingual tablet 0.4 mg sublingual Q5M PRN Cardiac/Chest Pain #30 tabs 10/14/22 sennosides 8.6 mg-docusate sodium 50 mg tablet (Stool Softener-Stimulant Laxative) 2 tab PO BID PRN PRN Constipation #0 tabs 10/14/22 Physical Exam Narrative Seen and examined. Physical exam General: Alert, Oriented x3, Cooperative HEENT: Atraumatic, PERRLA, EOMI, Normocephalic Oral: Oral mucosa moist. No Gingival or Mucosal Lesions/ Ulcerations Neck: Supple, No JVD, Negative Carotid Bruits Lungs: Air entry diminished in bilateral lung bases. No crepitation/rhonchi Cardiovascular: Regular rate, Regular Rhythm, Normal S1, Normal S2, No murmurs Abdomen: Bowel Sounds Present, Soft, Non Tender, Non-Distended : No renal angle tenderness. No suprapubic tenderness. Extremities: Mild bilateral below-knee 1+ edema, Capillary Refill Less than 3 Seconds Skin: No rashes, No breakdown Musculoskeletal: Bilateral knee and hip joints arthritis. Wrist and finger joints arthritis, RA. ROM limited at knee and hip joints. No Tenderness to P alpation of Joints or Extremities Neurological: Cranial nerves II-XII grossly intact, DTR 2+/4 and Symmetrical, Neuro grossly intact Psych/Mental Status: Normal Affect, Appropriate. Weight / BMI Weight Weight: 226 lb 6.636 oz Body Mass Index (BMI) 45.7 ABG / Lab / Microbiology Data Result Diagrams: 10/14/22 04:35 10/14/22 04:35 Laboratory: Laboratory Results - last 24 hr 10/13/22 11:03: WBC 4.9, RBC 4.34, Hgb 13.2, Hct 39.8, MCV 91.7, MCH 30.4, MCHC 33.2, RDW Std Deviation 49.5 H, RDW Coeff of Noe 14.7 H, Plt Count 221, MPV 9.2, Immature Gran % (Auto) 0.400, Neut % (Auto) 51.8, Lymph % (Auto) 35.2, [place] % (Auto) 8.1, Eos % (Auto) 4.1, Baso % (Auto) 0.4, Absolute Neuts (auto) 2.5, Absolute Lymphs (auto) 1.73, Nucleated RBC % 0 10/13/22 11:03: Sodium 139, Potassium 3.4 L, Chloride 107, Carbon Dioxide 25.0, Anion Gap 7, BUN 13, Creatinine 0.72, Estim Creat Clear Calc 88.29, Est GFR (MDRD) Af Amer 103, Est GFR (MDRD) Non-Af 85, BUN/Creatinine Ratio 18.0, Glucose 128 H, Calcium 9.4, Troponin I High Sens 6 10/13/22 11:03: Phosphorus 3.6, Magnesium 2.2 10/13/22 13:20: Total Bilirubin 0.80, Direct Bilirubin 0.26, AST 18, ALT 11 L, Alkaline Phosphatase 79, Total Protein 7.1, Albumin 3.7, Globulin 3.4 10/13/22 13:20: Troponin I High Sens 8 10/13/22 17:05: Troponin I High Sens 7 10/13/22 20:50: Urine Color Straw, Urine Clarity Clear, Urine pH 6.5, Ur Specific [place] 1.010, Urine Protein Negative, Urine Glucose (UA) Normal, Urine Ketones Negative, Urine Occult Blood Negative, Urine Nitrite Negative, Urine Bilirubin Negative, Urine Urobilinogen Normal, Ur Leukocyte Esterase 25 H, Urine RBC 0 SEEN, Urine WBC 0 SEEN, Ur Squamous Epith Cells 0 SEEN, Urine Bacteria 0 SEEN, Urine Mucus 0 SEEN 10/14/22 04:35: WBC 4.8, RBC 4.00 L, Hgb 12.4, Hct 37.4, MCV 93.5, MCH 31.0, MC HC 33.2, RDW Std Deviation 50.9 H, RDW Coeff of Noe 14.8 H, Plt Count 220, MPV 9.2, Immature Gran % (Auto) 0.200, Neut % (Auto) 47.8, Lymph % (Auto) 36.4, [place] % (Auto) 9.7, Eos % (Auto) 5.3 H, Baso % (Auto) 0.6, Absolute Neuts (auto) 2.3, Absolute Lymphs (auto) 1.73, Nucleated RBC % 0 10/14/22 04:35: Sodium 141, Potassium 3.5, Chloride 109 H, Carbon Dioxide 27.0, Anion Gap 5, BUN 16, Creatinine 0.67, Estim Creat Clear Calc 87.38, Est GFR (MDRD) Af Amer 112, Est GFR (MDRD) Non-Af 93, BUN/Creatinine Ratio 23.8 H, Glucose 97, Calcium 8.6, Triglycerides 71, Cholesterol 146, LDL Cholesterol 79, VLDL Cholesterol 14, HDL Cholesterol 53, TSH 3.55, Free T4 0.76 Radiography Diagnostic Testing: Radiology Impression Chest X-Ray 10/13/22 11:10 IMPRESSION: No acute abnormality seen. Electronically Signed: Corbin Zelaya MD at 12:02 EDT , Echocardiogram 10/13/22 12:50 Interpretation Summary Normal LV size. Left ventricular systolic function is normal. The estimated ejection fraction is 60 %. Stage 1 diastolic dysfunction. Pulmonary artery systolic pressure is 34 mmHg. Contrast injection was performed. Ordering Physician: Kole Stern Referring Physician: Polina Gilbert M.D. Performed By: Devi Sheriff RDCS D/C Instructions Discharge Diet: 2000 mg Sodium Diet Weight Bearing Status: Weight bearing as tolerated Call your doctor if you observe: Fever of 101 or Higher, Coldness, Increased Pain, Numbness or Tingling, Change in Color, Inability to urinate, Inability to have a bowel movement, Using more than 1 pad per hour, Shortness of breath, Dizziness, Fainting spells, Swelling in the ankles, Chest pain, Prolonged hic cupping, Increased palpitations (irregular heartbeat) and Calf discomfort When: IN 2 WEEKS Meaningful Use Info Meaningful Use Diagnoses (Choose all that apply): None applicable Discharge Plan Admission Admit Date/Time: 10/13/22 11:49 Primary Reason for Your Visit: Atypical chest pain possible unstable angina Attending Provider: Kole Stern Primary Care Provider: Polina Gilbert Consulting Providers: Sharyn Robertson Discharge Orders/Prescriptions Prescriptions: New atorvastatin 40 mg Tablet 20 mg PO QHS 30 Days Qty: 15 0RF sennosides-docusate sodium [Stool Softener-Stimulant Laxat] 8.6-50 mg Tablet 2 tab PO BID PRN PRN (Reason: Constipation) Qty: 0 0RF Rx Instructions: OTC nitroglycerin 0.4 mg Tablet, Sublingual 0.4 mg sublingual Q5M PRN (Reason: Cardiac/Chest Pain) Qty: 30 0RF lisinopril 2.5 mg Tablet 2.5 mg PO DAILY 30 Days Qty: 30 0RF Rx Instructions: Hold for SBP less than 110 mmHg metoprolol tartrate 25 mg Tablet 12.5 mg PO BID 30 Days Qty: 30 0RF Rx Instructions: Hold for heart less than 50 or systolic blood pressure less than 100 mmHg. isosorbide mononitrate 30 mg tablet extended release 24 hr 30 mg PO DAILY Qty: 30 0RF Rx Instructions: Hold for SBP less than 100 mmHg Continued multivitamin Tablet 1 tab PO DAILY methotrexate sodium 2.5 MG tablet 8 tab PO QWEEK Label Comments: TAKE EIGHT TABLETS BY MOUTH ONCE EVERY WEEK Rx Instructions: takes on Sundays if NO S/Sx of infections folic acid 1 MG tablet 2 tab PO DAILY Label Comments: TAKE TWO TABLETS BY MOUTH DAILY hydroxychloroquine 200 MG tablet 1 tab PO BID Label Comments: TAKE ONE TABLET BY MOUTH TWICE DAILY [place] Thyroid 90 MG tablet 90 mg PO DAILY Label Comments: TAKE ONE TABLET BY MOUTH EVERY DAY furosemide 40 mg tablet 20 mg PO DAILY Label Comments: TAKE ONE TABLET DAILY AND ONE-HALF TABLET IN THE AFTERNOON aspirin 81 mg Tablet,Delayed Release (Dr/Ec) 162 mg PO DAILY aspirin 81 mg Tablet,Delayed Release (Dr/Ec) 81 mg PO DAILY cholecalciferol (vitamin D3) 125 mcg (5,000 unit) Capsule 125 mcg PO QODAY furosemide 40 mg tablet 40 mg PO DAILY Label Comments: TAKE ONE TABLET DAILY AND ONE-HALF TABLET IN THE AFTERNOON Referrals / Follow Up: Polina Gilbert DO [Primary Care Provider] - Within 2 Weeks Disposition Disposition (needs filled in before D/C Order can be placed): Home, Self Care Charges/Coding Visit Charges Inpatient E&M: 56749 Disch Hosp >30min
== END 2022-10-14 09:27 | disposition home or self-care (01) ==
LOC: ED 11:56 → PCU 12:09
PROVIDERS: Admitting Provider Internal Medicine; Emergency Provider Emergency Medicine; PCP Internal Medicine; Visit Provider Internal Medicine
DX: I20.0 Unstable angina (principal); M06.9 Rheumatoid arthritis, unspecified; M32.9 Systemic lupus erythematosus, unspecified; I11.0 Hypertensive heart disease with heart failure; I50.32 Chronic diastolic (congestive) heart failure; G47.33 Obstructive sleep apnea (adult) (pediatric); Z79.82 Long term (current) use of aspirin; E78.5 Hyperlipidemia, unspecified; I05.0 Rheumatic mitral stenosis; Z79.899 Other long term (current) drug therapy; Z79.890 Hormone replacement therapy; E03.9 Hypothyroidism, unspecified; Z87.440 Personal history of urinary (tract) infections
CPT/HCPCS: 36415; 71045; 80048; 80061; 80076; 81001; 83735; 84100; 84439; 84443; 84484; 85025; 87086; 87088; 93005; 93306; 93454; 93970; 96372; 99152; 99153; 99221; 99284; J7040; Q9957; A4216; C1769; C1894; C8929; G0378; Q9967

== ENCOUNTER → 2022-11-12 | Outpatient (CLI) | payer MEDICARE, MEDICAID, SELFPAY ==
[2022-11-12 13:30] LABS: Absolute Lymphocyte Count 2.16 X10^3/uL (0.83-4.51); Basophil# 0.04 X10^3/uL; Basophil% 0.7 % (0-1); Eosinophils% 3.4 % (0-5); Hematocrit 40.2 % (37-47); Hemoglobin 13.3 g/dL (12.0-15.0); Lymphocyte # 2.16 X10^3/ul (0.83-4.51); Lymphocyte % 36.8 % (19-41); Mean Corp Hgb Conc 33.1 g/dL (32-36); Mean Corpuscular Volume 90.7 fL (81-99); Mean Platelet Vol. 9.4 fl (6.2-12.0); Monocyte% 6.8 % (0-10); NRBC Flagged by Analyzer 0 % (0-5); Neutrophil # 3.04 X10^3/uL (2.7-7.7); Neutrophil % 51.8 % (47-70); Platelet Count 203 K/mm3 (150-450); RBC Distribution Width CV 13.7 % (11.6-14.6); RBC Distribution Width SD 46.1 fl (35.1-43.9); Red Blood Count 4.43 M/mm3 (4.2-5.4); White Blood Count 5.9 K/mm3 (4.4-11.0)
[2022-11-12 13:59] LABS: Anion Gap 7 (5-15); BUN 11 mg/dL (7-18); BUN/Creat Ratio 16.9 RATIO (10-20); Calcium,Total 9.3 mg/dL (8.5-10.1); Chloride 103 mmol/L (98-107); Creatinine, Serum 0.65 mg/dL (0.55-1.02); EST Glomerular Filtration Rate 96 mL/min (>60); Est Glom Filt Rate - Afr Amer 116 mL/min (>60); Glucose 76 mg/dL (74-106); Potassium 3.7 mmol/L (3.5-5.1); Sodium Level 138 mmol/L (136-145)
[2022-11-12 14:06] LABS: BNP,B-Type NATRIURETIC PEPTIDE 11.5 pg/mL (0-100)
== END | disposition home or self-care (01) ==
LOC: LAB 11:47
PROVIDERS: PCP Internal Medicine; Visit Provider Nurse Practitioner Gerontology
DX: R06.09 Other forms of dyspnea (principal)
CPT/HCPCS: 36415; 80048; 83880; 85025

== ENCOUNTER → 2022-11-24 | Outpatient (CLI) | payer MEDICARE, MEDICAID, SELFPAY ==
--- NOTE | 2022-11-24 08:56 | CDU_ITS ---
Reason For Study: RT CAROTID STENOSIS Rt. Velocities/BP Lt. Velocities/BP Prox CCA 63.9/13.8 cm/sec. Prox CCA 141.7/28.5 cm/sec. Mid CCA 85.6/19.5 cm/sec. Mid CCA 95.2/20.4 cm/sec. Dist CCA 71.4/18.5 cm/sec. Dist CCA 83.1/24.8 cm/sec. Prox ICA 82.0/27.0 cm/sec. Prox ICA 99.0/27.8 cm/sec. Mid ICA 133.9/29.8 cm/sec. Mid ICA 101.3/27.8 cm/sec. Dist ICA 126.9/37.4 cm/sec. Dist ICA 103.9/27.8 cm/sec. Rt. ICA/CCA = 133.9/85.6=1.6. Lt. ICA/CCA = 103.9/95.2=1.1. Prox ECA 78.0/11.0 cm/sec. Prox ECA 103.9/10.6 cm/sec. Rt. Vert. 45.3/10.4 cm/sec. Lt. Vert. 51.1/12.7 cm/sec. Right Extracranial There is intimal thickening but no significant atherosclerotic plaque noted in the right common carotid artery. There is heterogeneous, irregular atherosclerotic plaque noted in the right internal carotid artery. The tortuous nature of the right internal carotid artery may result in flow velocities overestimating the degree of stenosis. There is heterogeneous, irregular atherosclerotic plaque noted in the right external carotid artery. Antegrade flow is noted in the right vertebral artery. Left Extracranial There is intimal thickening but no significant atherosclerotic plaque noted in the left common carotid artery. There is heterogeneous, irregular atherosclerotic plaque noted in the left internal carotid artery. The tortuous nature of the left internal carotid artery may result in flow velocities overestimating the degree of stenosis. There is intimal thickening but no significant atherosclerotic plaque noted in the left external carotid artery. Antegrade flow is noted in the left vertebral artery. Procedure Carotid Duplex [id number]. This is a Carotid Duplex examination using B-mode, color flow and specral Doppler. Exam performed in department. VL/Carotid Duplex Ultrasound Interpretation Summary Moderate (50-69%) stenosis right extracranial internal carotid. Mild (<50%) stenosis left extracranial internal carotid. Patent and antegrade vertebrals bilaterally. Ordering Physician: Cherrie Conway Referring Physician: Polina Gilbert Performed By: Iram Mota, RAQUEL, RVT
--- NOTE | 2022-11-25 10:05 | PFT ---
INTRODUCTION: The patient is a 67-year-old female that presents for pulmonary function studies secondary to a diagnosis of chest pain. Respiratory therapy reported good patient effort. Bronchodilators were used during testing. INTERPRETATION: Forced expiration spirometry demonstrates no evidence of a large airways obstructive ventilatory defect. There was no significant response to aerosolized bronchodilators. Spirograms are of good quality and plateau normally. Body plethysmography was performed and revealed lung volumes to be within normal limits. Diffusing capacity by single breath CO was also within normal limits. IMPRESSION: Grossly normal pulmonary function studies.
== END | disposition home or self-care (01) ==
LOC: PSN 08:54
PROVIDERS: PCP Internal Medicine; Referring Provider Nurse Practitioner Gerontology; Visit Provider Nurse Practitioner Gerontology
DX: I65.21 Occlusion and stenosis of right carotid artery (principal); R07.89 Other chest pain
CPT/HCPCS: 93880; 94060; 94726; 94729

== ENCOUNTER → 2023-01-18 | Outpatient (CLI) | payer MEDICARE, MEDICAID, SELFPAY ==
[2023-01-18 11:31] LABS: Bacteria 0 SEEN /hpf (None Seen); Mucous, Urine 0 SEEN /hpf (<or=2+); Red Blood Cells-Urine 0 SEEN /hpf (0-5)
[2023-01-18 12:29] LABS: Color, Urine Yellow (Yellow); Glucose, Dipstick Normal (Normal); Ketone-Dipstick Negative (Negative); Leukocyte Esterase-Dipstick 100 /ul (Negative); Nitrite-Dipstick Negative (Negative); Occult Blood-Urine 10 /ul (Negative); Protein-Dipstick Negative (Negative); Specific Gravity, Urine 1.015 (1.002-1.030); Urine Bilirubin Dipstick Negative (Negative); Urine Clarity Clear (Clear); Urine Urobilinogen Normal (Normal)
[2023-01-18 12:36] LABS: Squamous Epithelial Cells - UA 0-5 SEEN /hpf (5-10); White Blood Cells 0-5 SEEN /hpf (0-5)
== END | disposition home or self-care (01) ==
PROVIDERS: PCP Internal Medicine; Visit Provider Physician Assistant
DX: R30.0 Dysuria (principal)
CPT/HCPCS: 81001; 87086

== ENCOUNTER → 2023-01-19 | Outpatient (CLI) | payer MEDICARE, SELFPAY ==
--- NOTE | 2023-01-19 08:51 | US_ITS ---
INDICATION: multiple thyroid nodules, last had in 2021 -- multiple thyroid nodules, last had in 2021 EXAMINATION: Ultrasound US Thyroid (eg thyroid, parathyroid, parotid) TECHNIQUE: Hernandez scale and color doppler imaging was performed of the thyroid gland. COMPARISON: Thyroid ultrasound from 01/22/2022. FINDINGS: RIGHT THYROID LOBE: 4.4 x 1.3 x 1.4 cm. Heterogeneous echotexture. [There are 2 stable hyperechoic solid nodules measuring 0.4 x 0.4 x 0.6 cm, 0.5 x 0.6 x 0.6 cm. There is a stable 0.6 x 0.5 x 0.6 cm lower pole nodule that appears more isoechoic on this exam but is otherwise unchanged. There are no nodules greater than 1 cm to be characterized for Ti-Rads assessment. LEFT THYROID LOBE: 4.0 x 1.2 x 1.0 cm. Heterogeneous echotexture. [No thyroid nodules are present. ISTHMUS: 0.3 cm. No thyroid nodules are present. US/Head/Neck Soft Tissue IMPRESSION: Stable subcentimeter right thyroid lobe nodules. No new or enlarging nodules. Electronically Signed: Klever Singer DO at 11:21 EDT ,
== END | disposition home or self-care (01) ==
LOC: US 08:50
PROVIDERS: PCP Internal Medicine; Referring Provider Internal Medicine; Visit Provider Internal Medicine
DX: E04.2 Nontoxic multinodular goiter (principal)
CPT/HCPCS: 76536

== ENCOUNTER 2023-06-30 21:08 | Inpatient (IN) | payer MEDICARE, SELFPAY ==
[2023-06-30 21:09] VITALS: BP 105/64; PULSE 83; RESP 22; TEMP 37.7; O2SAT 94; BMI 53.1
--- NOTE | 2023-06-30 21:22 | EDS_ITS ---
HPI History of Present Illness Chief Complaint: Cold Sx Informant: patient Narrative Narrative: Patient has had subjective fevers and chills since yesterday. She has had some nonproductive coughing but not a lot. Some dyspnea with exertion, but that is not a new or worse problem. No chest pain. No vomiting or diarrhea. She has had some urinary frequency lately. Also headaches and some nausea, and discomfort in her right flank that felt like it was pulling me down. No neck stiffness. Family states she was talking a little bit out of her head earlier, patient states she had a fever then and she does not feel like she has one now. [facility] Medical History Atypical chest pain Essential hypertension History of left heart catheterization (10/03/13) Hyperlipidemia Hypothyroidism Mitral valve stenosis LUIZA on CPAP Osteoarthritis Osteoarthritis of right knee Other spondylosis, lumbosacral region Recurrent UTI Rheumatoid arthritis Unstable angina Home Medications folic acid 1 mg tablet 2 tab PO DAILY SUPPLEMENT 12/29/18 [History Last Taken 10/12/22] hydroxychloroquine 200 mg tablet 1 tab PO BID 12/29/18 [History Last Taken 10/13/22] methotrexate sodium 2.5 mg tablet 8 tab PO QWEEK 12/29/18 [History Last Taken 10/03/22] thyroid (pork) 90 mg tablet ([place]ellen Thyroid) 90 mg PO DAILY THYROID 12/29/18 [History Last Taken 10/13/22] multivitamin 1 tab PO DAILY 06/12/21 [History Last Taken 10/12/22] nitroglycerin 0.4 mg sublingual tablet 0.4 mg sublingual Q5M PRN Cardiac/Chest Pain #30 tabs 10/14/22 [Rx Last Taken Unknown] aspirin 81 mg tablet,delayed release 243 mg PO DAILY HEART HEALTH 11/12/22 [History Last Taken Unknown] furosemide 40 mg tablet 40 mg PO BID FLUID #180 tabs 02/02/23 [Rx Last Taken Unknown] metoprolol tartrate 25 mg tablet 12.5 mg PO BID 06/22/23 [History Last Taken Unknown] Allergy/AdvReac Type Severity Reaction Status Date / Time nitrofurantoin Allergy Unknown UNKNOWN Verified 06/30/23 21:09 [From Macrobid] amoxicillin Allergy Rash Verified 06/30/23 21:09 losartan AdvReac Intermediate Hypotension Verified 06/30/23 21:09 and dizzy even on 12.5 mg Family History (Reviewed 06/22/23 @ 10:28 by Kayleigh Qureshi MEDICAL OFFICE COORDINATOR, MEDICAL OFFICE COORDINATOR-C) Mother CVA (cerebral vascular accident) Thyroid disorder Father Heart disease Diabetes Grandmother Cancer Surgical History (Reviewed 06/22/23 @ 10:28 by Kayleigh Qureshi MEDICAL OFFICE COORDINATOR, MEDICAL OFFICE COORDINATOR-C) History of hysterectomy (~1981) History of lumbar spinal fusion (03/14/19) Social History Smoking Status: Never smoker alcohol intake: never substance use type: does not use caffeine: Yes Type: coffee Number of servings: 1 ROS ROS ED Constitutional Constitutional ED: Reports chills, fever(s) and subjective Eyes Eyes: Denies change in vision or diplopia ENT ENT ED: Denies ear pain, rhinorrhea or sore throat Cardiovascular Cardiovascular: Denies chest pain or palpitations Respiratory/Chest Respiratory/Chest: Reports cough and dyspnea on exertion Gastrointestinal Gastrointestinal: Reports abdominal pain and nausea; Denies diarrhea or vomiting Genitourinary Genitourinary ED: Reports flank pain; Denies dysuria or hematuria Musculoskeletal Musculoskeletal: Denies arthralgias or neck pain Integumentary Denies abscess or rash Neurologic Neurologic: Reports headache(s); Denies paresthesias or weakness Psychiatric Psychiatric: Denies suicidal ideation or suicidal thoughts EXAM Physical Exam Const Vital Signs: 06/30/23 21:09 Temperature 99.9 F H Temperature Source Temporal Pulse Rate 83 Respiratory Rate 22 H Blood Pressure 105/64 Blood Pressure Mean 77 Pulse Ox 94 Oxygen Delivery Method Room Air Positive well nourished, well developed and obese General Appearance ED: well developed and NAD Nutritional Appearance: obese HEENT Reports moist mucous membranes normocephalic and atraumatic Eyes PERRL and EOMs intact bilaterally Neck full ROM, no lymphadenopathy and supple Resp normal respiratory effort and clear to auscultation bilaterally Cardio regular rate, regular rhythm and no murmurs GI non-tender and non-distended GI Narrative: Benign abdomen without reproducible tenderness in the right flank/side or elsewhere Auscultation: normoactive bowel sounds Palpation: soft Back/Spine no CVA tenderness General Back: other FROM Extremity normal to inspection General Extremety ED: Negative for edema, pulses abnormal or tenderness General Extremity: Negative for edema or pulses abnormal Neuro oriented x3, CN's II-XII intact bilaterally and no sensory deficits noted Sensorium / Orientation: awake and alert Motor Exam: strength 5/5 throughout Psych mental status grossly normal Skin no rashes or lesions noted and no wounds MDM MDM MDM Narrative Medical decision making narrative: Initially obtained chest x-ray 2 view which on my interpretation is normal showing no pneumonia, radiology in agreement, a urinalysis which is consistent with acute infection showing positive nitrite, leukocyte esterase 500, and pyuria with bacteria. A swab for COVID and influenza negative. On reevaluation, family states they are concerned because the patient does not remember events from earlier in the ED visit. Also has been very weak and having a difficult time getting around today which is part of the reason why she brought her to the emergency department. If she is getting more confused and lives alone, reasonable to perform more of her workup and admit her. Labs obtained and blood cultures. Lactate and WBC WNL. Reviewed old records. She has a urine culture from 2 years ago that shows pansensitive E. coli, but another culture from 2 years prior to that that shows ESBL E. coli. For now we will start with Rocephin and admit her to the hospital. History & Record Review Additional record(s) reviewed:: Prior outpatient record Lab Data Attestation: I reviewed the patient's lab results. Labs: Laboratory Results - last 24 hr 06/30/23 06/30/23 21:29 23:05 WBC 7.2 RBC 3.70 L Hgb 11.1 L Hct 33.9 L MCV 91.6 MCH 30.0 MCHC 32.7 RDW Std Deviation 49.9 H RDW Coeff of Noe 15.0 H Plt Count 169 MPV 9.0 Immature Gran % (Auto) 0.400 Neut % (Auto) 78.7 H Lymph % (Auto) 11.8 L [place] % (Auto) 7.4 Eos % (Auto) 1.3 Baso % (Auto) 0.4 Absolute Neuts (auto) 5.7 Absolute Lymphs (auto) 0.85 Nucleated RBC % 0 Sodium 140 Potassium 3.6 Chloride 109 H Carbon Dioxide 26.0 Anion Gap 5 BUN 17 Creatinine 0.83 Estim Creat Clear Calc 76.83 Est GFR (MDRD) Af Amer 88 Est GFR (MDRD) Non-Af 73 BUN/Creatinine Ratio 20.5 H Glucose 127 H Lactic Acid 1.1 Calcium 8.7 Urine Color Yellow Urine Clarity Clear Urine pH 7.0 Ur Specific [place] 1.010 Urine Protein Negative Urine Glucose (UA) Normal Urine Ketones Negative Urine Occult Blood 25 H Urine Nitrite Positive H Urine Bilirubin Negative Urine Urobilinogen Normal Ur Leukocyte Esterase 500 H Urine RBC 0-5 SEEN Urine WBC 10-25 SEEN Ur Squamous Epith Cells 0 SEEN Urine Bacteria 2+ Urine Mucus 0 SEEN Radiography Diagnostic Testing: Clinical Impression(s) from Imaging Studies Chest X-Ray 06/30/23 21:50 IMPRESSION: No acute disease. Electronically Signed: Lucio Mosquera MD at 22:07 EST , Management Discussion w/another healthcare provider: Hospitalist Discharge Plan Triage Chief Complaint: Cold Sx Other Complaint: Hypotension ED Provider: Festus Canales Dx/Rx/DC Orders Clinical Impression: UTI (urinary tract infection), Acute encephalopathy Prescriptions: No Action multivitamin Tablet 1 tab PO DAILY metoprolol tartrate 25 mg tablet 12.5 mg PO BID methotrexate sodium 2.5 MG tablet 8 tab PO QWEEK Patient Comments: TAKE EIGHT TABLETS BY MOUTH ONCE EVERY WEEK Rx Instructions: takes on Sundays if NO S/Sx of infections folic acid 1 MG tablet 2 tab PO DAILY Patient Comments: TAKE TWO TABLETS BY MOUTH DAILY hydroxychloroquine 200 MG tablet 1 tab PO BID Patient Comments: TAKE ONE TABLET BY MOUTH TWICE DAILY Dunellen Thyroid 90 MG tablet 90 mg PO DAILY Patient Comments: TAKE ONE TABLET BY MOUTH EVERY DAY nitroglycerin 0.4 mg Tablet, Sublingual 0.4 mg sublingual Q5M PRN (Reason: Cardiac/Chest Pain) Qty: 30 0RF aspirin 81 mg tablet,delayed release (DR/EC) 243 mg PO DAILY furosemide 40 mg tablet 40 mg PO BID Qty: 180 3RF Primary Care Provider: Polina Gilbert Referrals: Polina Gilbert DO [Primary Care Provider] - Disposition Disposition: Acute Care Hospital [facility]
[2023-06-30] MEDS: Acetaminophen 500 MG Tablet 1000 MG PO (21:33)
[2023-06-30 21:34] LABS: Mucous, Urine 0 SEEN /hpf (<or=2+); Squamous Epithelial Cells - UA 0 SEEN /hpf (5-10)
[2023-06-30 21:38] LABS: Color, Urine Yellow (Yellow); Glucose, Dipstick Normal (Normal); Ketone-Dipstick Negative (Negative); Leukocyte Esterase-Dipstick 500 /ul (Negative); Nitrite-Dipstick Positive (Negative); Occult Blood-Urine 25 /ul (Negative); Protein-Dipstick Negative (Negative); Urine Bilirubin Dipstick Negative (Negative); Urine Clarity Clear (Clear); Urine Urobilinogen Normal (Normal)
--- OUTSIDE RECORDS SUMMARY | 2023-06-30 21:41 | XMS RPT_ITS | CCD ---
Author Name Unknown Address [address] [place] [address] Organization [facility] Care Team Providers Care Agricultural Specialist Name Role Phone Polina Perrin Unavailable Floridalma Lyle L Unavailable Unavailable Manchak, Kimberly Unavailable Unavailable Unavailable Unavailable Cherrie Vital Unavailable Unavailable Slarb, Jenna Unavailable Unavailable Manchak, Kimberly Unavailable Unavailable Gravius, Katherine Unavailable Unavailable Valeriano Major Unavailable Floridalma Lyle L Unavailable Unavailable Unavailable Unavailable Angi Brandon Unavailable Unavailable Mayela, Fanta Unavailable Unavailable Marychuy DO, Polina Unavailable Moriah , Dr. Bal Unavailable [phone] Gravius ER REGISTRAR, Katherine Unavailable Unavailable Cross ATTENDING PSYCHIATRIST, Angi Unavailable Unavailable Mayela ATTENDING PSYCHIATRIST, Fanta Unavailable Unavailable Manchak ER REGISTRAR, Kimberly Unavailable Unavailable Unavailable Unavailable Slarb ATTENDING PSYCHIATRIST, Jenna Unavailable Unavailable Fast DO, Kell A Unavailable Anupama CHURCH, Eric Feng Unavailable [phone] MarychuyLeann tariq DOhleen Unavailable Polina Perrin DO Primary Care Provider Panchito Cummings LPN Unavailable Unavailable POLINA PERRIN DO Primary Care Unavailable POLINA PERRIN DO Attending Unavailable HORTENCIA BISHOP Consulting Unavailable POLINA PERRIN DO Admitting Unavailable PROVIDER, UNKNOWN Consulting Unavailable PROVIDER, UNKNOWN Consulting Unavailable PROVIDER, UNKNOWN Consulting Unavailable Paolo CHURCH, Dulce Rodriguez Unavailable Ld FOSTER, Kayela Unavailable Unavailable Polina Perrin DO Primary Care Provider Patrica Garcia MA Unavailable Unavailable Marychuy , Polina Attending Unavailable Marychuy , Polina Referring Unavailable Marychuy , Polina Consulting Unavailable Joo ATTENDING PSYCHIATRIST, Fabrice Unavailable Unavailable Michelle De Paz MA Unavailable Unavailable Marychuy Polina AGUILAR Primary Care Provider Garo, Son Unavailable Unavailable INDRA METCALF Referring Unavailable MARYCHUYPOLINA TARIQ Primary Care Unavailab le DIXON, INDRA Referring Unavailable MARYCHUYPOLINA Primary Care Unavailab le ROSA, AGOSTINA Attending Unavailable INDRA METCALF Referring Unavailable MARYCHUY, POLINA EATON Primary Care Unavailab le DIXON, INDRA Attending Unavailable MARYCHUYPOLINA Primary Care Unavailab le MARYCHUY, POLINA EATON Primary Care Unavailab le Allergies Allergy Classification Reported Allergen(s) Allergy Type Date of Onset Reaction(s) Facility Penicillins (antibiotic) (2 sources) Ampicillin; Translations: [Ampicillin *PENICILLINS*] Drug All[facility] Work Phone: (20 sources) Ampicillin; Translations: [Ampicillin *PENICILLINS*] Drug Allergy [facility] Work Phone: (9 sources) Amoxicillin; Translations: [AMOXICILLIN] Drug Allergy 0 [facility] (1 source) Penicillins Drug allergy (disorder) [facility] (20 sources) NITROFURANTOIN, MACROCRYSTALS / Nitrofurantoin, Monohydrate; Translations: [Macrobid *ANTI-INFECTIVE AGENTS - MISC.*] Drug Allergy [facility] Work Phone: Medications Current Medications Medication Drug Class(es) Dates Sig (Normalized) Sig (Original) ergocalciferol 1.25 mg oral capsule (4 sources) Provitamin D2 Compound Start: 12-19-2020 End: 11-17-2021 ergocalciferol 50,000 unit capsule (VITAMIN D2, DRISDOL) Indications: Vitamin D deficiency (take by mouth with food twice a week, ONE CAPSULE ON TUESDAY AND ONE ON TUESDAY) FOR A TOTAL OF 8 WEEKS. 16 capsule 0 12/19/2020 11/17/2021 Discontinued (Other) Completed/Discontinued Medications Medication Drug Class(es) Dates Sig (Normalized) Sig (Original) amLODIPine 5 mg oral tablet (20 sources) Dihydropyridine Calcium Channel Loni Start: 01-06-2018 End: 10-15-2019 take 1 tablet by mouth once daily amLODIPine Besylate 5 MG Oral Tablet 1 (one) Tablet daily for 30 days Quantity: 30 {Tablet} Refills: 3 Ordered: 15-Oct-2019 Cherrie Vital RN Start : 06-Jan-2018 End : 15-Oct-2019 Inactive aspirin 81 mg delayed release oral tablet (20 sources) Platelet Aggregation Inhibitor, Nonsteroidal Anti-inflammatory Drug Start: 10-29-2022 take 2 tablets by mouth once daily aspirin 81 mg oral tablet, delayed release (enteric coated) 2 (two) Tablet daily as directed for 30 days Quantity: 30 {Tablet} Refills: 7 Ordered: 29-Oct-2022 Polina Perrin DO, DO, Kathleen Start : 29-Oct-2022 Active Problems Active Problems Problem Classification Problem Date Documented Da te Episodic/Chronic Adjustment disorders (20 sources) Grief finding; Translations: [Grieving] 09-04-2020 Chronic Complications of surgical procedures or medical care (20 sources) Drug therapy finding; Translations: [Medication side effect] Onset: 04-15-2020 05-25-2021 Episodic Past or Other Problems Problem Classification Problem Date Documented Date Episodic/Chronic Headache; including migraine (20 sources) Headache; including migraine Occlusion or stenosis of precerebral arteries (16 sources) Bilateral carotid artery stenosis; Translations: [Carotid stenosis, bilateral] 11-14-2019 Other connective tissue disease (8 sources) Decrease in height; Translations: [Loss of height] Onset: 04-15-2020 04-15-2020 Episodic Other hematologic conditions (1 source) Elevated erythrocyte sedimentation rate; Translations: [Elevated sed rate] Onset: 09-17-2022 Episodic Other screening for suspected conditions (not mental disorders or infectious disease) (4 sources) Other specified abnormal findings of blood chemistry; Translations: [Other abnormal blood chemistry] Onset: 09-17-2022 Episodic Other skin disorders (8 sources) Eruption; Translations: [Rash and other nonspecific skin eruption] Onset: 04-15-2020 04-15-2020 Episodic Transient cerebral ischemia (20 sources) Transient cerebral ischemia Unclassified (20 sources) 7 pregnancies (2 miscarriages) 5 births vaginal 2018 Unclassified (20 sources) Preprocedural examination done; Translations: [Pre-operative exam (Renamed from Preop examination)] 02-15-2019 Unclassified (20 sources) Visit for suture removal Unclassified (20 sources) Patient encounter status; Translations: [Breast screening] 12-03-2019 Unclassified (20 sources) Drug therapy finding; Translations: [Therapeutic drug monitoring] 11-14-2019 Unclassified (20 sources) Post-menopausal Unclassified (20 sources) Screen for colon cancer Unclassified (20 sources) Annual Medicare Physical (Renamed from Medicare annual wellness visit, subsequent) Unclassified (20 sources) Vision changes Unclassified (20 sources) Burning with urination Unclassified (20 sources) Unspecified Diagnosis 04-28-2020 Unclassified (20 sources) Encounter for annual general medical examination with abnormal findings in adult Unclassified (20 sources) Encounter for screening mammogram for breast cancer (Renamed from Encounter for screening mammogram for malignant neoplasm of breast) Unclassified (20 sources) Encounter for hepatitis C virus screening test for high risk patient Unclassified (20 sources) Thyromegaly Unclassified (20 sources) Abnormal urinalysis Urinary tract infections (20 sources) Urinary tract infections Results Test Name Value Interpretation Reference Range Facil ity Vital Signs Date Time Vital Sign Value Performing Clinician Facility 02-25-2023 10:23-0400 Body weight 109.77 kg Indra Metcalf MD Work Phone: [facility] 02-25-2023 10:23-0400 Diastolic blood pressure 54 mm[Hg] Indra Metcalf MD Work Phone: [facility] 02-25-2023 10:23-0400 Heart rate 59 /min Indra Metcalf MD Work Phone: [facility] 02-25-2023 10:23-0400 Systolic blood pressure 114 mm[Hg] Indra Metcalf MD Work Phone: [facility] 02-16-2023 10:52-0400 Body height 152.4 cm Fabrice Ge LPN [facility] Work Phone: 09-20-2023 10:52-0400 Body mass index (BMI) [Ratio] 47.9 kg/m2 [facility] Work Phone: 02-16-2023 10:52-0400 Body surface area Derived from formula 2.04 m2 [facility] Work Phone: 02-16-2023 10:52-0400 Body temperature 97.4 [degF] [facility] Work Phone: 02-16-2023 10:52-0400 Body weight 111.25 kg [facility] Work Phone: 02-16-2023 10:52-0400 Diastolic blood pressure 76 mm[Hg] [facility] Work Phone: Encounters Encounter Date Encounter Type Care Provider Facility Start: 06-09-2023 End: 06-10-2023 ambulatory INDRA METCALF Facility:[facility] Start: 03-18-2023 End: 03-18-2023 Annotation/Addendum Polina Perrin DO Work Phone: [facility] Start: 02-25-2023 End: 02-26-2023 ambulatory POLINA PERRIN Facility:[facility] Start: 02-25-2023 End: 02-25-2023 Patient encounter procedure Indra Metcalf MD Work Phone: Rheumatology Procedures Date Procedure Procedure Detail Performing Clinician Start: 01-19-2023 End: 01-20-2023 Head/Neck Soft Tissue Procedure Note: See Note; NOTES: [facility] Imaging Services [address] [place] [address] Head/Neck Soft Tissue MR#: [id number] Acct: [id number] Name: NADIRAELDA Michael Rep #: [id number] : 1955 F 67 From: Klever Singer DO PCP: Dr. Polina Perrin, DO Status: REG CLI Study: Head/Neck Soft Tissue Date of Exam: 01/19/23 Exam# [id number] Ordering Dr: Polina Perrin DO INDICATION: multiple thyroid nodules, last had in 2021 -- multiple thyroid nodules, last had in 2021 EXAMINATION: Ultrasound US Thyroid (eg thyroid, parathyroid, parotid) TECHNIQUE: Hernandez scale and color doppler imaging was performed of the thyroid gland. COMPARISON: Thyroid ultrasound from 01/22/2022. FINDINGS: RIGHT THYROID LOBE: 4.4 x 1.3 x 1.4 cm. Heterogeneous echotexture. [There are 2 stable hyperechoic solid nodules measuring 0.4 x 0.4 x 0.6 cm, 0.5 x 0.6 x 0.6 cm. There is a stable 0.6 x 0.5 x 0.6 cm lower pole nodule that appears more isoechoic on this exam but is otherwise unchanged. There are no nodules greater than 1 cm to be characterized for Ti-Rads assessment. LEFT THYROID LOBE: 4.0 x 1.2 x 1.0 cm. Heterogeneous echotexture. [No thyroid nodules are present. ISTHMUS: 0.3 cm. No thyroid nodules are present. US/Head/Neck Soft Tissue IMPRESSION: Stable subcentimeter right thyroid lobe nodules. No new or enlarging nodules. Electronically Signed: Klever Singer DO at 11:21 EDT , CC: Dr. Polina Perrin DO Computer Hardware Engineer: Signed Polina Perrin DO Work Phone: Start: 01-17-2023 End: 01-17-2023 Urgent Care Visit Report Procedure Note: See Note; NOTES: [facility] [address], [address] [place] [address] OFFICE VISIT Date of Service: 01/17/23 MR#: [id number] Acct: [id number] Name: ELDA VILLALOBOS Rep #: [id number] : 1955 Provider: LUPIS Obrien Age/Sex: 67/F Location: [facility] Status: Signed Intake Vital Signs 01/07/23 08:34 01/17/23 17:42 Height 4 ft 11 in 4 ft 11 in Weight: 240 lb 347 lb BMI 48.4 70.0 BP 148/81 H 148/82 H Blood Pressure Location Lt brachial Rt radial Position Sitting Sitting Respiration 18 18 Pulse 63 74 Pulse Source Monitor Monitor Temp 99.1 F Temp Source Temporal Pulse Oximetry (%) 98 94 Oxygen Delivery Method room air Intake Visit Reasons: Urinary tract infection Chief Complaint: POSSIBLE UTI Automation Driver Required: No Accompanied by: Self Is patient in pain?: No Allergies nitrofurantoin [From Macrobid] Allergy (Unknown, Verified 01/17/23 17:23) UNKNOWN amoxicillin Allergy (Verified 01/17/23 17:23) Rash losartan Adverse Reaction (Intermediate, Verified 01/17/23 17:23) Hypotension and dizzy even on 12.5 mg Medications folic acid 1 mg tablet 2 tab PO DAILY SUPPLEMENT 12/29/18 [History Confirmed 01/17/23] hydroxychloroquine 200 mg tablet 1 tab PO BID 12/29/18 [History Confirmed 01/17/23] methotrexate sodium 2.5 mg tablet 8 tab PO QWEEK 12/29/18 [History Confirmed 01/17/23] thyroid (pork) 90 mg tablet ([place] Thyroid) 90 mg PO DAILY THYROID 12/29/18 [History Confirmed 01/17/23] multivitamin 1 tab PO DAILY 06/12/21 [History Confirmed 01/17/23] nitroglycerin 0.4 mg sublingual tablet 0.4 mg sublingual Q5M PRN Cardiac/Chest Pain #30 tabs 10/14/22 [Rx Confirmed 01/17/23] sennosides 8.6 mg-docusate sodium 50 mg tablet (Stool Softener-Stimulant Laxative) 2 tab PO BID PRN PRN Constipation #0 tabs 10/14/22 [Rx Confirmed 01/17/23] aspirin 81 mg tablet,delayed release 243 mg PO DAILY HE[facility] HEALTH 11/12/22 [History Confirmed 01/17/23] furosemide 40 mg tablet 40 mg PO BID FLUID 01/07/23 [History Confirmed 01/17/23] metoprolol tartrate 25 mg tablet 25 mg PO DAILY 01/07/23 [History Confirmed 01/17/23] amlodipine 2.5 mg tablet 2.5 mg PO DAILY #30 tabs 01/12/23 [Rx Confirmed 01/17/23] cephalexin 500 mg capsule 500 mg PO TID #21 caps 01/17/23 [Rx Confirmed 01/17/23] PFSH Medical History Atypical chest pain Essential hypertension History of left heart catheterization (10/03/13) Hyperlipidemia Hypothyroidism Mitral valve stenosis LUIZA on CPAP Osteoarthritis Osteoarthritis of right knee Other spondylosis, lumbosacral region Recurrent UTI Rheumatoid arthritis Unstable angina Surgical History History of hysterectomy ( 1981) History of lumbar spinal fusion (03/14/19) Family History Mother CVA (cerebral vascular accident) Thyroid disorder Father Heart disease Diabetes Grandmother Cancer Social History Smoking Status: Never smoker alcohol intake: never substance use type: does not use caffeine: Yes Type: coffee Number of servings: 1 HPI HPI Chief Complaint: POSSIBLE UTI Details: ELDA VILLALOBOS, is a 67 F who presents to the office today for 4-day history of dysuria and urinary frequency with occasional mid back pain. No complaints of fever, chills, sweats, chest pressure/shortness of breath/dyspnea on exertion. No changes in color/character of urine or stool. Non-smoker. No close contacts with similar complaints. No [id number] products that he uses. No other associated symptoms and no alleviating/aggravating factors. ROS Const Constitutional: No other (As above) Exam Const General: cooperative, healthy appearing and no acute distress Orientation: alert, awake and oriented x3 Chest Chest palpation inspection: normal inspection of the chest Resp Effort Inspection: normal respiratory effort and able to speak in complete sentences Auscultation: Bilateral: Clear to Auscultation Cardio Palpation: normal PMI Rate: regular rate Rhythm: regular rhythm Heart Sounds: S1 normal, S2 normal, no gallops, no murmurs and no rubs Pulses: radial pulses present GI Inspection: normal to inspection Palpation: soft General: No CVA tenderness Skin General: no rashes or lesions noted Neuro General: patient alert, patient awake and patient oriented x3 Cognition: normal cognition Speech: speech normal Psych Appearance: grossly normal Mental Status: mental status grossly normal Mood: congruent mood Affect: normal affect Speech and Movement: speech and movement normal Attitude: cooperative Results POC Urinalysis Dip (Clinic) Office Urine Color YELLOW Last Edit by Suad Stephens MA on 01/17/23 17:40 Office Urine Clarity Clear Last Edit by Suad Stephens MA on 01/17/23 17:40 Office Urine Glucose Negative Last Edit by Suad Stephens MA on 01/17/23 17:40 Office Urine Ketones Negative Last Edit by Suad Stephens MA on 01/17/23 17:40 Off Ur Spec [place] 1.010 Last Edit by Suad Stephens MA on 01/17/23 17:40 Office Urine pH 7.0 Last Edit by Suad Stephens MA on 01/17/23 17:40 Office Urine Bilirubin Negative Last Edit by Suad Stephens MA on 01/17/23 17:40 Office Urine Urobilinogen 0.2 mg/dL Last Edit by Suad Stephens MA on 01/17/23 17:40 Office Urine Blood Hemolyzed Last Edit by Suad Stephens MA on 01/17/23 17:40 Office Urine Blood Hemolyzed Small Last Edit by Suad Stephens MA on 01/17/23 17:40 Office Urine Protein Negative Last Edit by Suad Stephens MA on 01/17/23 17:40 Office Urine Nitrate Negative Last Edit by Suad Stephens MA on 01/17/23 17:40 Off Ur Leukocytes Positive Last Edit by Suad Stephens MA on 01/17/23 17:40 Coding Level of Care Code Off vis,est,level 3 Diagnoses UTI (urinary tract infection) N39.0 Assessment and Plan Assessment and Plan (1) UTI (urinary tract infection): Status: Acute Plan: See POC results; urine sent out for urinalysis and culture/sensitivity. Cephalexin as prescribed today. Supportive measures as instructed today. Follow-up with PCP in 3 to 5 days should symptoms not improve, ED sooner should symptoms only worsen or any other concerns develop. Patient states acknowledging understanding all the above. This note was generated with [employer] dictation software. It may contain incorrect words, spelling, and punctuation that were not noted in checking the note before signing. Orders: Orders Urinalysis, Complete Today R30.0 - Dysuria Culture, Urine Today N39.0 - Urinary tract infection, site not specified POC Urinalysis Dip (Clinic) Today R30.0 - Dysuria Medications: New cephalexin 500 mg PO TID 21 caps 0RF 01/17/23 1814 <Electronically signed by Nick BAUGH> Date Nick BAUGH Cosigner Signature: Date (if applicable) CC: Polina Perrin DO Work Phone: Start: 01-07-2023 End: 01-07-2023 Cardiology Visit Report Procedure Note: See Note; NOTES: [facility] [address] [place] [address]. [address] [place] [address] OFFICE VISIT Date of Service: 01/07/23 MR#: [id number] Acct: [id number] Name: ELDA VILLALOBOS Rep #: [id number] : 1955 Provider: FIFI naik Age/Sex: 67/F Location: [facility] Status: Signed HPI HPI History of Present Illness Details: This is a 67-year-old female who presents to the office today for a cardiovascular follow-up visit. She had presented to the emergency room on 10/13/2022 with complaints of exertional midsternal chest pressure, shortness of breath, nausea and diaphoresis. That resolved with rest. Her initial blood pressure in the emergency room was 180/102. She was admitted to the hospital for further cardiac work-up. She underwent a cardiac catheterization on 10/14/2022 which demonstrated normal coronary arteries. Her echocardiogram from 10/13/2022 demonstrated an ejection fraction of 60%, stage I diastolic dysfunction, no wall motion abnormality noted, mild to moderate mitral annular calcification, and mild tricuspid valve insufficiency. From a cardiac standpoint, the patient is doing well. She denies any palpitations, or chest pain. She does acknowledge chest pressure with muggy weather. She states she did put in an air conditioner, and this has helped. She does acknowledge occasional SOB with warmer/muggy weather. She denies Orthopnea, and PND. She does not have bleeding issues; no blood in urine, stool or nosebleeds. She denies any decrease in energy level, myalgias, or claudication. She does have occasional bilateral lower extremity edema. She does not have sudden weight gain. She denies dizziness, lightheadedness, syncopal or near syncopal episodes, and headaches. She states her blood pressures at home have been averaging 119/60's. Intake Vital Signs 11/12/22 10:41 01/07/23 08:34 Height 4 ft 11 in 4 ft 11 in Weight: 240 lb BMI 48.4 BP 148/81 H Blood Pressure Location Lt brachial Position Sitting Respiration 18 Pulse 63 Pulse Source Monitor Pulse Oximetry (%) 98 Intake Visit Reasons: 6 wk FU Automation Driver Required: No Is patient in pain?: No Allergies nitrofurantoin [From Macrobid] Allergy (Unknown, Verified 01/07/23 08:49) UNKNOWN amoxicillin Allergy (Verified 01/07/23 08:49) Rash losartan Adverse Reaction (Intermediate, Verified 01/07/23 08:49) Hypotension and dizzy even on 12.5 mg Medications folic acid 1 mg tablet 2 tab PO DAILY SUPPLEMENT 12/29/18 [History Confirmed 01/07/23] hydroxychloroquine 200 mg tablet 1 tab PO BID 12/29/18 [History Confirmed 01/07/23] methotrexate sodium 2.5 mg tablet 8 tab PO QWEEK 12/29/18 [History Confirmed 01/07/23] thyroid (pork) 90 mg tablet ([place] Thyroid) 90 mg PO DAILY THYROID 12/29/18 [History Confirmed 01/07/23] multivitamin 1 tab PO DAILY 06/12/21 [History Confirmed 01/07/23] nitroglycerin 0.4 mg sublingual tablet 0.4 mg sublingual Q5M PRN Cardiac/Chest Pain #30 tabs 10/14/22 [Rx Confirmed 01/07/23] sennosides 8.6 mg-docusate sodium 50 mg tablet (Stool Softener-Stimulant Laxative) 2 tab PO BID PRN PRN Constipation #0 tabs 10/14/22 [Rx Confirmed 01/07/23] aspirin 81 mg tablet,delayed release 243 mg PO DAILY HEART HEALTH 11/12/22 [History Confirmed 01/07/23] furosemide 40 mg tablet 40 mg PO BID FLUID 01/07/23 [History Confirmed 01/07/23] metoprolol tartrate 25 mg tablet 25 mg PO DAILY 01/07/23 [History] [facility] Medical History Atypical chest pain Essential hypertension History of left heart catheterization (10/03/13) Hyperlipidemia Hypothyroidism Mitral valve stenosis LUIZA on CPAP Osteoarthritis Osteoarthritis of right knee Other spondylosis, lumbosacral region Recurrent UTI Rheumatoid arthritis Unstable angina Surgical History History of hysterectomy ( 1981) History of lumbar spinal fusion (03/14/19) Family History Mother CVA (cerebral vascular accident) Thyroid disorder Father Heart disease Diabetes Grandmother Cancer Social History Smoking Status: Never smoker alcohol intake: never substance use type: does not use caffeine: Yes Type: coffee Number of servings: 1 ROS Const Const: Negative for fatigue, weakness, fever(s), headache(s), chills, frequent falls, weight gain or weight loss Eyes Eyes: Negative for blind spots, loss of peripheral vision, transient loss of vision, blurry vision, change in vision, double vision, floaters or tunnel vision ENT ENT: Negative for headache(s), dizziness, Nosebleed/epistaxis, balance problems or neck pain Cardio Chest Pain: No Palpitations: No Edema: Bilateral (occasional) Muscle aches with walking: None Resp Respiratory: Positive for other (SOB with muggy/warm weather); Negative for SOB with activity, SOB at rest or SOB orthopnea SOB lying down GI GI: Negative nausea, vomiting, heartburn, bloating, vomiting blood/hematemesis, bright, red blood in stools or black,tarry stools Musc Musc: Negative for muscle aches/ myalgia, muscle weakness, joint pain or balance problems Neuro Neuro: Negative for dizziness, lightheadedness, near syncope, syncope, orthostatic symptoms, frequent falls, headache(s), weakness, blurry vision or double vision Fei Hematologic/Lymphatic: Negative for easy bleeding or easy bruising Endo Endo: Negative for fatigue Cardiology Exam Const Appearance: cooperative and no acute distress Nutritional Appearance: obese Orientation: alert and oriented x3 Head Head: normal to inspection Ears: hearing grossly normal bilaterally Nose: external nose normal Face and Sinus: face symmetric Eyes General: appearance normal, both eyes and all related structures Eyelids: eyelids normal Conjunctivae: conjunctivae normal Pupils: PERRL and pupil size EOM: EOM intact bilaterally Neck Neck: normal visual inspection Carotids: Negative bruit Chest Chest inspection: normal inspection of the chest and normal respiratory effort Auscultation: Bilateral: Clear to Auscultation Cardio Palpation: normal PMI Rate: regular rate Rhythm: regular rhythm Heart sounds: S1 normal and S2 normal; Negative rub, gallop or murmur GI GI: normal to inspection, soft and obese Neuro General: patient alert, patient oriented x3 and CN's II-XI intact bilaterally Skin Skin: no rashes or lesions noted Extremities Pulses: Normal: Right Posterior Tibial Pulse, Left Posterior Tibial Pulse, Right Radial Pulse and Left Radial Pulse Lower Extremity Edema: None: Bilateral Psych Psychological: normal affect Supplemental Info Supplemental Information Echocardiogram 10/13/2022: Interpretation Summary Normal LV size. Left ventricular systolic function is normal. The estimated ejection fraction is 60 %. Stage 1 diastolic dysfunction. Pulmonary artery systolic pressure is 34 mmHg. Contrast injection was performed. Cardiac catheterization 10/14/2022: PROCEDURE(S) PERFORMED DC02-(45451)[facility]/COR CLINICAL PROFILE AND INDICATIONS Indications: Suspected CAD Heart Failure: None Stress/Imaging Stress/Image Study Performed: No CAD Presentations: Unstable angina. CONCLUSIONS Normal coronary arteries Normal LV size, wall motion,and systolic function RECOMMENDATIONS Medical therapy DESCRIPTION OF PROCEDURE The patient arrived to the procedure lab. The risks and benefits of the procedure as well as a full description of our services here and current unavailability of surgical backup were fully explained to the patient and/or their significant other prior to the catheterization. The Timeout was completed, verifying the correct patient and procedure. The patient's procedural site was prepped and draped in the usual fashion. Local anesthetic was given subcutaneously to right ulnar region with Lidocaine 2%. Using a modified Seldinger technique, arterial access was obtained via the right ulnar a 6Fr sheath was inserted. Left Coronary Artery selective angiography was performed in multiple views using a 5 Fr. 4.0 [place] catheter. Right Coronary Artery selective angiography was then performed in multiple views using a 5 Fr. JR 5 catheter. Left Ventriculography was performed in JUDITH projection using a 5 Fr. Pigtail catheter.The arterial sheath was pulled and a TR Band was applied for hemostasis w/ 10ml air CORONARY ANGIOGRAPHY DOMINANCE: Right Dominant LEFT HEART ASSESSMENT Left Ventricular Ejection Fraction: by LV Gram 60 % Normal LV wall motion Normal Left Ventricular systolic function LEFT MAIN: Angiographically normal LEFT ANTERIOR DESCENDING ARTERY: Angiographically normal CIRCUMFLEX ARTERY: Angiographically normal RIGHT CORONARY ARTERY: Angiographically normal Carotid duplex 11/24/2022: Interpretation Summary Moderate (50-69%) stenosis right extracranial internal carotid. Mild (<50%) stenosis left extracranial internal carotid. Patent and antegrade vertebrals bilaterally. Labs: LDL Cholesterol 79 mg/dL (0-130) HDL Cholesterol 53 mg/dL (40-) Cholesterol 146 mg/dL (200) Triglycerides 71 mg/dL (-199) Diagnostics: Electrocardiogram Echocardiogram Cardiac Catheterization Chest X-Ray Carotid Duplex Venous Doppler Study Pulmonary: Pulmonary Function Test Past Visits: Cardiology Visit 01/07/23 Assessment and Plan Assessment and Plan (1) Essential hypertension: Status: Chronic Plan: Patient has a history of hypertension. Her blood pressure is mildly elevated in the office today. She states her blood pressures at home have been averaging 119/60's. At this time, she will continue with her current medical therapy, along with monitoring her blood pressures at home. She will notify our office of any persistently elevated or low blood pressure readings. (2) Hyperlipidemia: Status: Chronic Qualifiers: Hyperlipidemia type: unspecified Qualified Code(s): E78.5 - Hyperlipidemia, unspecified Plan: Patient has a history of hyperlipidemia. Her most recent lipid panel from 10/14/2022: Cholesterol 146, HDL 53, LDL 79, triglycerides 71. Patient will continue with aggressive risk factor and lifestyle modifications. (3) Mitral valve stenosis: Status: Chronic Qualifiers: Cardiac valve disease etiology: nonrheumatic Qualified Code(s): I34.2 - Nonrheumatic mitral (valve) stenosis Plan: Patient has a history of mitral valve stenosis. Her most recent echocardiogram from 10/13/2022 demonstrated an ejection fraction of 60%, and mild to moderate mitral annular calcification. She appears stable at this time. We will continue to monitor this with history, exam, and echocardiograms as deemed appropriate. (4) Carotid stenosis, right: Status: Acute Plan: Patient's most recent carotid ultrasound from 11/24/2022 demonstrated moderate 50 to 69% stenosis in her right extracranial internal carotid artery, and mild less than 50% stenosis in her left extracranial internal carotid artery. This remains unchanged from 2020. She will continue with her current medical therapy, along with aggressive risk factor and lifestyle modifications. Plan Details Additional Comments: Patient will follow-up in 6 months, or sooner if needed. Thank you for allowing me to participate in the care of your patient. Please don't hesitate to call if any issues arise. This note was generated using a voice recognition system and there may be incorrect words, spelling, or punctuation that were not noted when reviewing the office note prior to saving. Portions of this documentation were copied and pasted from previous office visit notes to provide a cohesive continuity of the history. The note has been reviewed, edited, and updated, as necessary. Follow Up: Cancel 02/01/2023 6 Months (FOOD SERVICE SUPERVISOR/PA) Coding Level of Care Code Off vis,est,level 3 Diagnoses Essential hypertension I10 Hyperlipidemia, unspecified hyperlipidemia type E78.5 Hyperlipidemia type: unspecified Nonrheumatic mitral valve stenosis I34.2 Cardiac valve disease etiology: nonrheumatic Carotid stenosis, right I65.21 Coding Level of Care Code Off vis,est,level 3 Diagnoses Essential hypertension I10 Hyperlipidemia, unspecified hyperlipidemia type E78.5 Hyperlipidemia type: unspecified Nonrheumatic mitral valve stenosis I34.2 Cardiac valve disease etiology: nonrheumatic Carotid stenosis, right I65.21 01/07/23 1526 <Electronically signed by Cherrie Conway NP FOOD SERVICE SUPERVISOR-C> Date Cherrie Conway NP FOOD SERVICE SUPERVISOR-C Kathleenignmarisela Signature: Date (if applicable) CC: DO Polina Garcia DO Work Phone: Start: 11-25-2022 End: 11-25-2022 Pulmonary Function Test Procedure Note: See Note; NOTES: [facility] Pulmonary Services/Neurology [address] [place] [address] MR#: [id number] Acct: [id number] Name: ELDA VILLALOBOS Rep #: [id number] : 1955 67 From: Royal Thomason DO Referring Dr: Cherrie Conway NP FOOD SERVICE SUPERVISOR-C Status: REG [facility] Location: [facility] Date: 11/24/22 Sex: F C INTRODUCTION: The patient is a 67-year-old female that presents for pulmonary function studies secondary to a diagnosis of chest pain. Respiratory therapy reported good patient effort. Bronchodilators were used during testing. INTERPRETATION: Forced expiration spirometry demonstrates no evidence of a large airways obstructive ventilatory defect. There was no significant response to aerosolized bronchodilators. Spirograms are of good quality and plateau normally. Body plethysmography was performed and revealed lung volumes to be within normal limits. Diffusing capacity by single breath CO was also within normal limits. IMPRESSION: Grossly normal pulmonary function studies. 11/25/22 1007 <Electronically signed by Royal Thomason DO> Date Royal Thomason DO CC: FOOD SERVICE SUPERVISOR-C Cherrie Conway; Dr. Polina Perrin DO Date Dictated: 11/25/221004 Date Transcribed: 11/25/221004 Computer Hardware Engineer: DB Signed Polina Perrin DO Work Phone: Start: 11-24-2022 End: 06-28-2023 Carotid Duplex Ultrasound Procedure Note: See Note; NOTES: [facility] Cardiovascular Services [address] [place] [address] Carotid Duplex Ultrasound 11/24/22 1040 MR#: [id number] Acct: [id number] Name: ELDA VILLALOBOS Rep #: [id number] : 1955 67 From: Percy Tovar MD Attending Dr: Cherrie Conway FOOD SERVICE SUPERVISOR-C Status: REG C Ordering Dr: Cherrie Conway FOOD SERVICE SUPERVISOR FOOD SERVICE SUPERVISOR-C Date: 11/24/22 Location: PSN Sex: F C Admitted: Reason For Study: RT CAROTID STENOSIS Rt. Velocities/BP Lt. Velocities/BP Prox CCA 63.9/13.8 cm/sec. Prox CCA 141.7/28.5 cm/sec. Mid CCA 85.6/19.5 cm/sec. Mid CCA 95.2/20.4 cm/sec. Dist CCA 71.4/18.5 cm/sec. Dist CCA 83.1/24.8 cm/sec. Prox ICA 82.0/27.0 cm/sec. Prox ICA 99.0/27.8 cm/sec. Mid ICA 133.9/29.8 cm/sec. Mid ICA 101.3/27.8 cm/sec. Dist ICA 126.9/37.4 cm/sec. Dist ICA 103.9/27.8 cm/sec. Rt. ICA/CCA = 133.9/85.6=1.6. Lt. ICA/CCA = 103.9/95.2=1.1. Prox ECA 78.0/11.0 cm/sec. Prox ECA 103.9/10.6 cm/sec. Rt. Vert. 45.3/10.4 cm/sec. Lt. Vert. 51.1/12.7 cm/sec. Right Extracranial There is intimal thickening but no significant atherosclerotic plaque noted in the right common carotid artery. There is heterogeneous, irregular atherosclerotic plaque noted in the right internal carotid artery. The tortuous nature of the right internal carotid artery may result in flow velocities overestimating the degree of stenosis. There is heterogeneous, irregular atherosclerotic plaque noted in the right external carotid artery. Antegrade flow is noted in the right vertebral artery. Left Extracranial There is intimal thickening but no significant atherosclerotic plaque noted in the left common carotid artery. There is heterogeneous, irregular atherosclerotic plaque noted in the left internal carotid artery. The tortuous nature of the left internal carotid artery may result in flow velocities overestimating the degree of stenosis. There is intimal thickening but no significant atherosclerotic plaque noted in the left external carotid artery. Antegrade flow is noted in the left vertebral artery. Procedure Carotid Duplex 39927. This is a Carotid Duplex examination using B-mode, color flow and specral Doppler. Exam performed in department. VL/Carotid Duplex Ultrasound Interpretation Summary Moderate (50-69%) stenosis right extracranial internal carotid. Mild (<50%) stenosis left extracranial internal carotid. Patent and antegrade vertebrals bilaterally. Ordering Physician: Cherrie Conway Referring Physician: Polina Perrin Performed By: Iram Mota, RAQUEL, RVT 11/24/22 1348 Date Percy Tovar MD CC: FIFI Conway; Dr. Polina Perrin DO Date Dictated: 11/24/22 1040 Date Transcribed: 11/24/22 1348 Computer Hardware Engineer: Tone Perrin DO Work Phone: Start: 11-12-2022 End: 11-12-2022 Cardiology Visit Report Procedure Note: See Note; NOTES: [facility] [address] [place] [address] OFFICE VISIT Date of Service: 11/12/22 MR#: [id number] Acct: [id number] Name: ELDA VILLALOBOS Rep #: [id number] : 1955 Provider: FIFI naik Age/Sex: 67/F Location: [facility] Status: Signed HPI [facility] History of Present Illness Details: This is a 67-year-old female who presents to the office today for a cardiovascular hospital follow- up visit. She had presented to the emergency room on 10/13/2022 with complaints of exertional midsternal chest pressure, shortness of breath, nausea and diaphoresis. That resolved with rest. Her initial blood pressure in the emergency room was 180/102. She was admitted to the hospital for further cardiac work-up. She underwent a cardiac catheterization on 10/14/2022 which demonstrated normal coronary arteries. Her echocardiogram from 10/13/2022 demonstrated an ejection fraction of 60%, stage I diastolic dysfunction, no wall motion abnormality noted, mild to moderate mitral annular calcification, and mild tricuspid valve insufficiency. From a cardiac standpoint, the patient is doing well. She denies any palpitations. She continues to acknowledge chest pressure with exertion. This is relieved with rest. She does acknowledge occasion al SOB with exertion. She denies Orthopnea, and PND. She does not have bleeding issues; no blood in urine, stool or nosebleeds. She does acknowledge fatigue. She denies myalgias, or claudication. She does acknowledge bloating sensation, and slight increase in weight. She denies dizziness, lightheadedness, syncopal or near syncopal episodes, and headaches. Intake Vital Signs 10/13/22 13:09 11/12/22 10:41 11/12/22 10:41 Height 4 ft 11 in 4 ft 11 in 4 ft 11 in Weight: 230 lb BMI 46.4 Blood Pressure Location Lt brachial Position Sitting Respiration 18 Pulse 67 Pulse Source Monitor Pulse Oximetry (%) 99 Intake Visit Reasons: F/UP Automation Driver Required: No Is patient in pain?: No Allergies nitrofurantoin [From Macrobid] Allergy (Unknown, Verified 11/12/22 10:59) UNKNOWN amoxicillin Allergy (Verified 11/12/22 10:59) Rash losartan Adverse Reaction (Intermediate, Verified 11/12/22 10:59) Hypotension and dizzy even on 12.5 mg Medications folic acid 1 mg tablet 2 tab PO DAILY SUPPLEMENT 12/29/18 [History Confirmed 11/12/22] hydroxychloroquine 200 mg tablet 1 tab PO BID 12/29/18 [History Confirmed 11/12/22] methotrexate sodium 2.5 mg tablet 8 tab PO QWEEK 12/29/18 [History Confirmed 11/12/22] thyroid (pork) 90 mg tablet ([place] Thyroid) 90 mg PO DAILY THYROID 12/29/18 [History Confirmed 11/12/22] multivitamin 1 tab PO DAILY 06/12/21 [History Confirmed 11/12/22] cholecalciferol (vitamin D3) 125 mcg (5,000 unit) capsule 125 mcg PO QODAY SUPPLEMENT 10/13/22 [History Confirmed 11/12/22] furosemide 40 mg tablet 40 mg PO DAILY FLUID 10/13/22 [History Confirmed 11/12/22] isosorbide mononitrate 30 mg tablet,extended release 24 hr 30 mg PO DAILY #30 tabs 10/14/22 [Rx Confirmed 11/12/22] metoprolol tartrate 25 mg tablet 12.5 mg PO BID 30 days #30 tabs 10/14/22 [Rx Confirmed 11/12/22] nitroglycerin 0.4 mg sublingual tablet 0.4 mg sublingual Q5M PRN Cardiac/Chest Pain #30 tabs 10/14/22 [Rx Confirmed 11/12/22] sennosides 8.6 mg-docusate sodium 50 mg tablet (Stool Softener-Stimulant Laxative) 2 tab PO BID PRN PRN Constipation #0 tabs 10/14/22 [Rx Confirmed 11/12/22] aspirin 81 mg tablet,delayed release 243 mg PO DAILY HEART HEALTH 11/12/22 [History Confirmed 11/12/22] [facility] Medical History (Reviewed 11/12/22 @ 14:41 by Cherrie Conway FOOD SERVICE SUPERVISOR, FOOD SERVICE SUPERVISOR-C) Atypical chest pain Essential hypertension History of left heart catheterization (10/03/13) Hyperlipidemia Hypothyroidism Mitral valve stenosis LUIZA on CPAP Osteoarthritis Osteoarthritis of right knee Other spondylosis, lumbosacral region Recurrent UTI Rheumatoid arthritis Unstable angina Surgical History History of hysterectomy ( 1981) History of lumbar spinal fusion (03/14/19) Family History Mother CVA (cerebral vascular accident) Thyroid disorder Father Heart disease Diabetes Grandmother Cancer Social History (Reviewed 11/12/22 @ 14:41 by Cherrie Conway FOOD SERVICE SUPERVISOR, FOOD SERVICE SUPERVISOR-C) Smoking Status: Never smoker alcohol intake: never substance use type: does not use caffeine: Yes Type: coffee Number of servings: 1 ROS Const Const: Positive for fatigue; Negative for weakness, fever(s), headache(s), chills, frequent falls, weight gain or weight loss Eyes Eyes: Negative for blind spots, loss of peripheral vision, transient loss of vision, blurry vision, change in vision, double vision, floaters or tunnel vision ENT ENT: Negative for headache(s), dizziness, Nosebleed/epistaxis, balance problems or neck pain Cardio Chest Pain: Yes (pressure with exertion-relieved with rest) Palpitations: No Edema: None Muscle aches with walking: None Resp Respiratory: Positive for SOB with activity; Negative for SOB at rest or SOB orthopnea SOB lying down GI GI: Negative nausea, vomiting, heartburn, bloating, vomiting blood/hematemesis, bright, red blood in stools or black,tarry stools Musc Musc: Negative for muscle aches/ myalgia, muscle weakness, joint pain or balance problems Neuro Neuro: Negative for dizziness, lightheadedness, near syncope, syncope, orthostatic symptoms, frequent falls, headache(s), weakness, blurry vision or double vision Fei Hematologic/Lymphatic: Negative for easy bleeding or easy bruising Endo Endo: Positive for fatigue Cardiology Exam Const Appearance: cooperative and no acute distress Nutritional Appearance: obese Orientation: alert and oriented x3 Head Head: normal to inspection Ears: hearing grossly normal bilaterally Nose: external nose normal Face and Sinus: face symmetric Eyes General: appearance normal, both eyes and all related structures Eyelids: eyelids normal Conjunctivae: conjunctivae normal Pupils: PERRL and pupil size EOM: EOM intact bilaterally Neck Neck: normal visual inspection Carotids: Negative bruit Chest Chest inspection: normal inspection of the chest and normal respiratory effort Auscultation: Bilateral: Clear to Auscultation Cardio Palpation: normal PMI Rate: regular rate Rhythm: regular rhythm Heart sounds: S1 normal and S2 normal; Negative rub, gallop or murmur GI GI: normal to inspection, soft and obese Neuro General: patient alert, patient oriented x3 and CN's II-XI intact bilaterally Skin Skin: no rashes or lesions noted Extremities Pulses: Normal: Right Posterior Tibial Pulse, Left Posterior Tibial Pulse, Right Radial Pulse and Left Radial Pulse Lower Extremity Edema: None: Bilateral Psych Psychological: normal affect Supplemental Info Supplemental Information Echocardiogram 10/13/2022: Interpretation Summary Normal LV size. Left ventricular systolic function is normal. The estimated ejection fraction is 60 %. Stage 1 diastolic dysfunction. Pulmonary artery systolic pressure is 34 mmHg. Contrast injection was performed. Cardiac catheterization 10/14/2022: PROCEDURE(S) PERFORMED DC02-(30324)[facility]/COR CLINICAL PROFILE AND INDICATIONS Indications: Suspected CAD Heart Failure: None Stress/Imaging Stress/Image Study Performed: No CAD Presentations: Unstable angina. CONCLUSIONS Normal coronary arteries Normal LV size, wall motion,and systolic function RECOMMENDATIONS Medical therapy DESCRIPTION OF PROCEDURE The patient arrived to the procedure lab. The risks and benefits of the procedure as well as a full description of our services here and current unavailability of surgical backup were fully explained to the patient and/or their significant other prior to the catheterization. The Timeout was completed, verifying the correct patient and procedure. The patient's procedural site was prepped and draped in the usual fashion. Local anesthetic was given subcutaneously to right ulnar region with Lidocaine 2%. Using a modified Seldinger technique, arterial access was obtained via the right ulnar a 6Fr sheath was inserted. Left Coronary Artery selective angiography was performed in multiple views using a 5 Fr. 4.0 [place] catheter. Right Coronary Artery selective angiography was then performed in multiple views using a 5 Fr. JR 5 catheter. Left Ventriculography was performed in JUDITH projection using a 5 Fr. Pigtail catheter.The arterial sheath was pulled and a TR Band was applied for hemostasis w/ 10ml air CORONARY ANGIOGRAPHY DOMINANCE: Right Dominant LEFT HEART ASSESSMENT Left Ventricular Ejection Fraction: by LV Gram 60 % Normal LV wall motion Normal Left Ventricular systolic function LEFT MAIN: Angiographically normal LEFT ANTERIOR DESCENDING ARTERY: Angiographically normal CIRCUMFLEX ARTERY: Angiographically normal RIGHT CORONARY ARTERY: Angiographically normal Labs: LDL Cholesterol 79 mg/dL (0-130) HDL Cholesterol 53 mg/dL (40-) Cholesterol 146 mg/dL (200) Triglycerides 71 mg/dL (-199) Diagnostics: Electrocardiogram Echocardiogram Stress Test Stress Test Nuclear Medicine Cardiac Catheterization Chest X-Ray Chest CTA Carotid Duplex Venous Doppler Study Pulmonary: No Data to Display Past Visits: No Data to Display Assessment and Plan Assessment and Plan (1) Essential hypertension: Status: Chronic Plan: Patient has a history of hypertension. Her blood pressure has been on the low end of normal. She will be asked to hold isosorbide. She will continue metoprolol tartrate 12.5 mg daily, Lasix 40 mg daily, along with monitoring her blood pressures at home. She will notify our office of blood pressure readings in 1 to 2 weeks. (2) Hyperlipidemia: Status: Chronic Qualifiers: Hyperlipidemia type: unspecified Qualified Code(s): E78.5 - Hyperlipidemia, unspecified Plan: Patient has a history of hyperlipidemia. Her most recent lipid panel from 10/14/2022: Cholesterol 146, HDL 53, LDL 79, triglycerides 71. Patient will continue with aggressive risk factor and lifestyle modifications. (3) Mitral valve stenosis: Status: Chronic Qualifiers: Cardiac valve disease etiology: nonrheumatic Qualified Code(s): I34.2 - Nonrheumatic mitral (valve) stenosis Plan: Patient has a history of mitral valve stenosis. Her most recent echocardiogram from 10/13/2022 demonstrated an ejection fraction of 60%, and mild to moderate mitral annular calcification. We will continue to monitor this with history, exam, and echocardiograms as deemed appropriate. (4) SANTSO (dyspnea on exertion): Status: Acute Plan: Patient has complaints of dyspnea on exertion. Her most recent echocardiogram from 10/13/2022 demonstrated ejection fraction of 60%, and stage I diastolic dysfunction. We will obtain lab work to further assess for fluid overload. We will also obtain a pulmonary function test to assess her lung function. Depending on results, further recommendations will be made. (5) Chest pressure: Status: Acute Plan: Patient acknowledges chest pressure with exertion. Her most recent echocardiogram from 10/13/2022 demonstrated ejection fraction of 60%, and stage I diastolic dysfunction. Her cardiac catheterization from 10/14/2022 demonstrated normal coronary arteries. I do not believe this is cardiac related. We will obtain lab work to further assess this, as well as a pulmonary function test to evaluate her lung function. Depending on results, further recommendations will be made. (6) Carotid stenosis, right: Status: Acute Plan: Patient's most recent carotid ultrasound from 11/19/2019 demonstrated moderate 50 to 69% stenosis in her right extracranial internal carotid artery, and mild less than 50% stenosis in her left extracranial internal carotid artery. We will obtain a carotid ultrasound to further assess this. Depending on results, further recommendations will be made. Orders: Orders Basic Metabolic Profile (BMP) Today R06.09 - Other forms of dyspnea BNP,B-Type NATRIURETIC PEPTIDE Today R06.09 - Other forms of dyspnea CBC W/Diff, Automated Today R06.09 - Other forms of dyspnea Carotid Duplex Ultrasound Today I65.21 - Occlusion and stenosis of right carotid artery Pulmonary Function Test (Comp) Today R06.09 - Other forms of dyspnea, R07.89 - Other chest pain Medications: Discontinued furosemide Discontinued Reason: Order Completed 20 mg PO DAILY On Hold isosorbide mononitrate ER Hold Comment: Low blood pressure 30 mg PO DAILY 30 tabs 0RF Plan Details Additional Comments: Patient will follow-up in 6 to 8 weeks, or sooner if needed. Thank you for allowing me to participate in the care of your patient. Please don't hesitate to call if any issues arise. This note was generated using a voice recognition system and there may be incorrect words, spelling, or punctuation that were not noted when reviewing the office note prior to saving. Portions of this documentation were copied and pasted from previous office visit notes to provide a cohesive continuity of the history. The note has been reviewed, edited, and updated, as necessary. Follow Up: 6-8 week (KR) Coding Level of Care Code Off vis,est,level 4 Diagnoses Essential hypertension I10 Hyperlipidemia E78.5 Hyperlipidemia type: unspecified Mitral valve stenosis I34.2 Cardiac valve disease etiology: nonrheumatic SANTOS (dyspnea on exertion) R06.09 Chest pressure R07.89 Carotid stenosis, right I65.21 Coding Level of Care Code Off vis,est,level 4 Diagnoses Essential hypertension I10 Hyperlipidemia E78.5 Hyperlipidemia type: unspecified Mitral valve stenosis I34.2 Cardiac valve disease etiology: nonrheumatic SANTOS (dyspnea on exertion) R06.09 Chest pressure R07.89 Carotid stenosis, right I65.21 11/12/22 1443 <Electronically signed by Cherrie Conway NP, NP-C> Date Cherrie KAPLANC Cosigner Signature: Date (if applicable) CC: DO Polina Garcia DO Work Phone: Start: 10-13-2022 End: 10-13-2022 Chest 1 View (Portable) Procedure Note: See Note; NOTES: [facility] [facility] Imaging Services [address] [place] [address] Chest 1 View (Portable) MR#: [id number] Acct: [id number] Name: ELDA VILLALOBOS Rep #: [id number] : 1955 F 67 From: Corbin rivera MD PCP: Dr. Polina Perrin DO Status: REG ER Study: Chest 1 View (Portable) Date of Exam: 10/13/22 Exam# [id number] Ordering Dr: Abraham Palomino MD STUDY: X-RAY CHEST REASON FOR EXAM: Female, 67 years old. Chest pain TECHNIQUE: Single AP portable view of the chest. COMPARISON: Comparison is made with prior study dated December 29, 2018. FINDINGS: EKG electrodes are seen. The lungs are clear and expanded. There is no demonstrated pleural abnormality. There is calcification of the mitral valve annulus. Normal mediastinum and conrado. Normal visualized pulmonary arteries. Normal visualized aortic arch and descending thoracic aorta. There are diffuse degenerative changes of the visualized thoracic spine. Prior fusion of the lower cervical spine. There is no demonstrated abnormality of the visualized soft tissue structures of the upper abdomen. RAD/Chest 1 View (Portable) IMPRESSION: No acute abnormality seen. Electronically Signed: Corbin Zelaya MD at 12:02 EDT , CC: Dr. Abraham Palomino MD; Dr. Polina Perrin DO Computer Hardware Engineer: Signed Polina Perrin DO Work Phone: Start: 06-02-2022 End: 06-02-2022 Pulmonary Visit Report Procedure Note: See Note; NOTES: [facility] [address] [place] [address] OFFICE VISIT Date of Service: 06/02/22 MR#: [id number] Acct: [id number] Name: ELDA VILLALOBOS Rep #: [id number] : 1955 Provider: FIFI Qureshi Age/Sex: 66/F Location: [facility].PMW Status: Signed Assessment and Plan Assessment and Plan (1) LUIZA on CPAP: Status: Chronic (2) BMI 45.0-49.9, adult: Status: Acute Plan Details Additional Comments: She is using and benefiting from Pap therapy. Order placed for replacement supplies. No indication for titration study at this time. Continue to encourage weight loss. Contact the office for any new or worsening symptoms in the meantime. Follow-up in [address] Thomason. Follow Up: 1 Year (DMB) HPI 1 Y FU Chief Complaint: New PAP supplies HPI Comments Details: This patient presents to the office today for 1 year follow-up on her obstructive sleep apnea. She is ambulatory and currently on room air. She has not been seen in the ED or urgent care for any respiratory illnesses since her last required any antibiotics or prednisone for any breathing problems. She did have a minor upper respiratory infection that prevented her from being compliant with her Pap therapy for approximately 5 days. She was able to overcome symptoms without any intervention or medications. She denies any difficulty with shortness of breath. She denies any cough, sputum production or hemoptysis. She does not have any wheezing, chest tightness, chest pain or palpitations. She also denies any fever, chills or body aches. She reports that after sleeping 5 days without her Pap device due to her upper respiratory infection she noticed that she was more tired, had daytime hypersomnia and really recognized the benefit of utilizing her Pap device. She was happy when she was able to get back to using her Pap device. When using her Pap device she wakes up feeling rested and refreshed. She is not having excessive nocturia. She denies any difficulty with morning headaches. She is experiencing some dry mouth and some mask leaks. It has been quite sometime since she had any replacement supplies. Compliance report for the past 30 days shows 83% compliance with an average use of 6 hours and 52 minutes per night. Current setting is 14 cm of water with a residual AHI of 7.5 events per hour. Leaks do appear to be somewhat problematic. Intake Vital Signs 04/06/22 15:54 06/02/22 07:48 Height 4 ft 11 in 4 ft 11 in Weight: 228 lb BMI 46.0 BP 129/61 H Blood Pressure Location Rt radial Position Sitting Respiration 16 Pulse 65 Pulse Source Monitor Temp 97.5 F L Temperature Source Temporal Artery Pulse Oximetry (%) 94 Oxygen Delivery Method room air Intake Visit Reasons: 1 Y FU DME Vendor: [employer] Allergies nitrofurantoin [From Macrobid] Allergy (Unknown, Verified 06/02/22 08:53) UNKNOWN amoxicillin Allergy (Verified 06/02/22 08:53) Rash losartan Adverse Reaction (Intermediate, Verified 06/02/22 08:53) Hypotension and dizzy even on 12.5 mg Medications folic acid 1 mg tablet 2 tab PO DAILY 12/29/18 [History Confirmed 06/02/22] hydroxychloroquine 200 mg tablet 1 tab PO BID 12/29/18 [History Confirmed 06/02/22] methotrexate sodium 2.5 mg tablet 8 tab PO QWEEK 12/29/18 [History Confirmed 06/02/22] thyroid (pork) 90 mg tablet 1 tab PO DAILY 12/29/18 [History Confirmed 06/02/22] furosemide 40 mg tablet 40 mg PO .COMPLEX #135 tabs 03/17/20 [Rx Confirmed 06/02/22] aspirin 325 mg tablet 325 mg PO DAILY 07/09/20 [History Confirmed 06/02/22] cholecalciferol (vitamin D3) 1,250 mcg (50,000 unit) capsule 1,250 mcg PO QWEEK 09/23/20 [History Confirmed 06/02/22] multivitamin 1 tab PO DAILY 06/12/21 [History Confirmed 06/02/22] [facility] Medical History Atypical chest pain Essential hypertension History of left heart catheterization (10/03/13) Hyperlipidemia Hypothyroidism Mitral valve stenosis LUIZA on CPAP Osteoarthritis Osteoarthritis of right knee Other spondylosis, lumbosacral region Recurrent UTI Rheumatoid arthritis Surgical History History of hysterectomy ( 1981) History of lumbar spinal fusion (03/14/19) Family History Mother CVA (cerebral vascular accident) Thyroid disorder Father Heart disease Diabetes Grandmother Cancer Social History alcohol intake: never substance use type: does not use caffeine: Yes Type: coffee Number of servings: 1 Exam Const Constitutional: Positive conversant, cooperative, in no acute respiratory distress, well developed, well nourished, good hygiene and obese Head Head: Yes normocephalic and Yes atraumatic Eyes Eye: Positive clear conjunctiva; Negative nystagmus or scleral abnormality Ears Ear: Positive hearing normal and external ears normal Nose Nose: Yes external nose normal Mouth Mouth: Positive oral mucosae normal Neck Neck: Positive normal visual inspection, thick neck and trachea midline Chest Wall Chest: Positive symmetric chest movement Normal AP diameter. Resp lung sounds: Positive good air exchange; Negative wheezes, rhonchi or rales Cardio Cardiac: Positive regular rate, regular rhythm, S1 normal and S2 normal; Negative murmur, rub or gallop GI GI: Positive obese Soft without distention Genitourinary: Positive deferred Musc Musculoskeletal: Positive steady gait Skin Pulmonary Skin Exam: Positive intact; Negative lesion, rash, ulcers or dermal atrophy Extremities Extremities: No clubbing, No cyanosis and No edema Neuro Neurologic: Yes no focal neuro deficits, Yes conversant, Yes cooperative, Yes normal cognition, Yes normal coordination, Yes normal concentration and Yes understands questions Psych Appearance: Positive grossly normal Mental Status: Positive mental status grossly normal Mood: Positive congruent mood Affect: Positive normal affect Coding Level of Care Code Off vis,est,level 3 Diagnoses LUIZA on CPAP G47.33; Z99.89 BMI 45.0-49.9, adult Z68.42 06/02/22 0933 <Electronically signed by Kayleigh Qureshi NP FOOD SERVICE SUPERVISOR-C> Date Kayleigh Qureshi NP FOOD SERVICE SUPERVISOR-C Kathleenigner Signature: Date (if applicable) CC: DO Polina Garcia DO Work Phone: Start: 01-22-2022 End: 01-23-2022 Thyroid Procedure Note: See Note; NOTES: [facility] Imaging Services [address] [place] [address] Thyroid MR#: [id number] Acct: [id number] Name: ELDA VILLALOBOS Rep #: [id number] : 1955 F 66 From: Rahat Machuca MD PCP: Dr. Polina Perrin DO Status: REG CLI Study: Thyroid Date of Exam: 01/22/22 Exam# [id number] Ordering Dr: Polina Perrin DO STUDY: THYROID ULTRASOUND REASON FOR EXAM: Female, 66 years old. NODULES TECHNIQUE: Ultrasound evaluation of the thyroid was performed with real-time and static domingo-scale imaging. COMPARISON: None. FINDINGS: RIGHT LOBE: The right lobe of the thyroid gland measures 4.4 x 1.3 x 1.5 cm.There are 3 right thyroid nodules visualized. These measure 0.5 x 0.5 x 0.7 cm, 0.6 x 0.4 x 0.6 cm and 0.5 x 0.5 x 0.5 cm. Remainder of right lobe demonstrates heterogeneous echo architecture. The aforementioned nodules are hyperechoic and solid. LEFT LOBE: The left lobe of the thyroid gland measures 4.0 x 1.2 x 1.0 cm. The left lobe demonstrates heterogeneous echo architecture. ISTHMUS: The isthmus measures 2.6 mm . The regional lymph nodes are normal. US/Thyroid IMPRESSION: Multinodular goiter as above. Electronically Signed: Rahat Machuca MD, LAKEISHA at 8:18 EDT , CC: Dr. Polina Perrin DO Computer Hardware Engineer: Signed Polina Perrin DO Work Phone: Start: 12-18-2021 End: 12-18-2021 Urgent Care Visit Report Comments: See Note; NOTES: [facility] [address] [place] [address] [address] [id number] OFFICE VISIT Date of Service: 12/18/21 MR#: [id number] Acct: [id number] Name: ELDA VILLALOBOS Rep #: [id number] : 1955 Provider: LUPIS Zapien Age/Sex: 66/F Location: [facility].NOW Status: Signed Intake Vital Signs 06/12/21 08:27 12/18/21 13:35 12/18/21 14:21 Height 4 ft 11 in 4 ft 11 in 4 ft 10 in Weight: 226 lb BMI 47.2 BP 130/84 H Blood Pressure Location Lt radial Position Standing Respiration 17 Pulse 79 Pulse Source Monitor Temp 99.3 F H Temp Source Temporal Pulse Oximetry (%) 99 Oxygen Delivery Method room air Intake Visit Reasons: FLU SYMPTOMS/COVID/UTI Allergies nitrofurantoin [From Macrobid] Allergy (Unknown, Verified 12/18/21 14:06) UNKNOWN amoxicillin Allergy (Verified 12/18/21 14:06) Rash losartan Adverse Reaction (Intermediate, Verified 12/18/21 14:06) Hypotension and dizzy even on 12.5 mg Medications folic acid 1 mg tablet 2 tab PO DAILY 12/29/18 [History Confirmed 12/18/21] hydroxychloroquine 200 mg tablet 1 tab PO BID 12/29/18 [History Confirmed 12/18/21] methotrexate sodium 2.5 mg tablet 8 tab PO QWEEK 12/29/18 [History Confirmed 12/18/21] thyroid (pork) 90 mg tablet 1 tab PO DAILY 12/29/18 [History Confirmed 12/18/21] furosemide 40 mg tablet 40 mg PO .COMPLEX #135 tabs 03/17/20 [Rx Confirmed 12/18/21] aspirin 325 mg tablet 325 mg PO DAILY 07/09/20 [History Confirmed 12/18/21] cholecalciferol (vitamin D3) 1,250 mcg (50,000 unit) capsule 1,250 mcg PO QWEEK 09/23/20 [History Confirmed 12/18/21] multivitamin 1 tab PO DAILY 06/12/21 [History Confirmed 12/18/21] cephalexin 500 mg capsule 500 mg PO Q12H 10 days #20 caps 12/18/21 [Rx Confirmed 12/18/21] PFSH Medical History Atypical chest pain Essential hypertension History of left heart catheterization (10/03/13) Hyperlipidemia Hypothyroidism Mitral valve stenosis LUIZA on CPAP Osteoarthritis Osteoarthritis of right knee Other spondylosis, lumbosacral region Recurrent UTI Rheumatoid arthritis Surgical History History of hysterectomy ( 1981) History of lumbar spinal fusion (03/14/19) Family History Mother CVA (cerebral vascular accident) Thyroid disorder Father Heart disease Diabetes Grandmother Cancer Social History alcohol intake: never substance use type: does not use caffeine: Yes Type: coffee Number of servings: 1 HPI HPI Details: ELDA VILLALOBOS, is a 66 F who presents to the office today for complaint of dysuria as well as increasing urgency/frequency for the past several days. Patient does state that she has taken Pyridium which has helped with the symptoms. She denies fever, chills, sweats. No nausea, vomiting, diarrhea. No loss of taste or smell. No other associated symptoms or alleviating/aggravating factors. ROS Const Constitutional: No other (6 system ROS completed with pertinent findings in HPI otherwise normal.) Exam Const General: cooperative and healthy appearing Resp Effort Inspection: normal respiratory effort Auscultation: Bilateral: Clear to Auscultation Cardio Rate: regular rate Rhythm: regular rhythm GI Auscultation: normal bowel sounds General: No CVA tenderness Psych Appearance: grossly normal Mental Status: mental status grossly normal Results POC Urinalysis Dip (Clinic) Office Urine Color ORANGE Last Edit by Laura Kurtz RN on 12/18/21 14:27 Office Urine Clarity Clear Last Edit by Laura Kurtz RN on 12/18/21 14:27 Office Urine Glucose Negative Last Edit by Laura Kurtz RN on 12/18/21 14:27 Office Urine Ketones Negative Last Edit by Laura Kurtz RN on 12/18/21 14:27 Off Ur Spec [place] 1.010 Last Edit by Laura Kurtz RN on 12/18/21 14:27 Office Urine pH 6.0 Last Edit by Laura Kurtz RN on 12/18/21 14:27 Office Urine Bilirubin Negative Last Edit by Laura Kurtz RN on 12/18/21 14:27 Office Urine Urobilinogen 0.2 mg/dL Last Edit by Laura Kurtz RN on 12/18/21 14:27 Office Urine Blood Trace Last Edit by Laura Kurtz RN on 12/18/21 14:27 Office Urine Blood Hemolyzed Non-Hemolyzed Last Edit by Laura Kurtz RN on 12/18/21 14:2 7 Office Urine Protein Negative Last Edit by Laura Kurtz RN on 12/18/21 14:27 Office Urine Nitrate Negative Last Edit by Laura Kurtz RN on 12/18/21 14:27 Off Ur Leukocytes Positive Last Edit by Laura Kurtz RN on 12/18/21 14:27 Coding Level of Care Code Off vis,new,level 3 Diagnoses UTI (urinary tract infection) N39.0 Assessment and Plan Assessment and Plan (1) UTI (urinary tract infection): Status: Acute Orders: Orders POC Urinalysis Dip (Clinic) Today N39.0 - Urinary tract infection, site not specified Culture, Urine Today N39.0 - Urinary tract infection, site not specified Urinalysis, Complete Today N39.0 - Urinary tract infection, site not specified Medications: New cephalexin 500 mg PO Q12H 10 days 20 caps 0RF Plan Keflex as prescribed today as patient states she has had this in the past without any reaction. Encouraged to get plenty of rest, drink lots of clear liquids, and use Tylenol or Ibuprofen (unless contraindicated) for fever and comfort. Patient also educated on other symptomatic management techniques. To be seen in 7-10 days if no improvement; sooner if worsening of symptoms. Patient advised of potential red flags and when appropriate to report to the ED. Patient verbalized understanding and agreement with all the above. 12/18/21 1609 <Electronically signed by Romaine BAUGH> Date Romaine BAUGH Cosigner Signature: Date (if applicable) CC: Polina Perrin DO Work Phone: Start: 12-01-2021 End: 12-01-2021 Stress Report Comments: See Note; NOTES: [facility] Services [address] [place] [address] MR#: [id number] Acct: [id number] Name: NADIRAELDA M Rep #: [id number] : 1955 66 From: Berlin Melton MD Primary Care: Dr. Polina Perrin DO Status: REG I Referring Dr: Polina Perrin DO Sex: F C Stress Test Report Date: 12-01-2021 Procedure: Pharmacologic stress nuclear imaging study Indications: Chest pain Consent: Per the patient Procedure: The patient underwent pharmacologic (Regadenoson 0.4mg ) evaluation with a peak heart rate of 90 beats per minute (58%predicted maximal heart rate) and a peak blood pressure of 124/72 mmHg. The baseline ECG demonstrated normal sinus rhythm. The peak pharmacologic ECG demonstrated no obvious ECG changes. There were no cardiac dysrhythmias pretest, during pharmacologic infusion, or recovery. There was no complaint of chest discomfort during pharmacologic infusion or recovery. The examination was discontinued secondary to completion of protocol. Impression: 1. Pharmacologic (Regadenoson) evaluation 2. Peak pharmacologic ECG with no obvious ECG changes. 3. There were no cardiac dysrhythmias pretest, during pharmacologic infusion, or recovery. 4. Nuclear images pending Myocardial perfusion imaging study: Technique: The patient was injected with 14.4 millicuries of technetium 99m Cardiolite and subsequently rest SPECT Cardiolite nuclear imaging was obtained in the horizontal long, vertical long, and short axis views. The patient underwent pharmacologic (Regadenoson) evaluation with a peak heart rate of 90 beats per minute (58% percent predicted maximal heart rate) and a peak blood pressure of 124/72 mmHg. The patient was injected with 44.8 millicuries of technetium 99m Cardiolite and subsequently stress SPECT Cardiolite nuclear imaging was obtained in the horizontal long, vertical long, and short axis views. A gated Cardiolite study at peak stress was obtained. Interpretation: Rest and stress SPECT Cardiolite nuclear imaging status post realignment, normalization, and attenuation correction demonstrate relative uniform tracer uptake and myocardial perfusion appearing within normal limits. There is end systolic thickening and brightening. The gated Cardiolite study demonstrates myocardial thickening and inward wall motion. The reported LVEF is 73%. Impression: 1. Rest and stress SPECT Cardiolite nuclear imaging demonstrate relative uniform tracer uptake and myocardial perfusion appearing within normal limits. 2. The gated Cardiolite study reports an LVEF of 73%. This note was generated with Inst[employer]Bookation software. It may contain incorrect words, spelling, and punctuation that were not noted in checking the note before signing. 12/01/211336 <Electronically signed by Berlin Melton MD> Date Berlin Melton MD CC: Dr. Polina Perrin, DO Date Dictated: 12/01/211332 Date Transcribed: 12/01/211332 Computer Hardware Engineer: PM Signed Polina Perrin DO Work Phone: Start: 12-01-2021 End: 12-01-2021 Echo Complete W/ Contrast Comments: See Note; NOTES: [facility] [place] [address] Echo Complete W/ Contrast 12/01/21 7644 MR#: [id number] Acct: [id number] Name: ELDA VILLALOBOS Rep #: [id number] : 1955 66 From: Berlin Melton MD Attending Dr: Dr. Polina Perrin, Status: R EG CLI Ordering Dr: Polina Perrin DO Date: 12/01/21 Location: [facility] Sex: F C Admitted: Reason For Study: CHEST PAIN Procedure This was a 2D Doppler, Color Flow transthoracic echocardiogram. The study was technically difficult. Contrast injection was performed. Exam performed in department. Left Ventricle Normal LV size. Left ventricular systolic function is normal. The estimated ejection fraction is 65 %. No evidence for diastolic dysfunction. No regional wall motion abnormalities noted. Right Ventricle Normal RV size. Normal systolic function. Atria The left atrium is mildly enlarged. Normal right atrium. No doppler evidence for ASD. Mitral Valve There is moderate to severe mitral annular calcification. Extension of the mitral annular calcification onto the base of the posterior mitral valve leaflet. Trivial mitral valve insufficiency. Tricuspid Valve Normal tricuspid valve. Mild tricuspid valve insufficiency. Right ventricular systolic pressure estimated to be 32 mmHg. Aortic Valve The aortic valve is not well visualized. Pulmonic Valve The pulmonic valve is not well visualized. Great Vessels Normal sized aortic root. Pericardium/Pleural No pericardial effusion. Medication Diluted definity 3ml given slow IV push to enhance endocardial definition. MMode/2D Measurements Calculations LVIDd: 5.0 cm IVSd: 1.0 cm Ao root diam: 2.7 cm LVIDs: 2.9 cm LVPWd: 1.1 cm RVDd: 3.1 cm FS: 41.5 % LAV(MOD-bp): 50.2 ml LVAd ap4: 27.8 cm2 SV(MOD-sp4): 57.8 ml LAV(MOD-bp) Indexed: 32.9 ml/m2 LVLd ap4: 7.6 cm LAV(MOD-sp2): 52.5 ml EDV(MOD-sp4): 82.8 ml LAV(MOD-sp4): 45.9 ml EDV(sp4-el): 85.7 ml LVAs ap4: 13.4 cm2 LVLs ap4: 5.8 cm ESV(MOD-sp4): 24.9 ml ESV(sp4-el): 26.4 ml EF(MOD-sp4): 69.9 % EF(sp4-el): 69.1 % SV(sp4-el): 59.2 ml LA A4 area: 17.5 cm2 LA dimension(2D): 3.5 cm RA A4 area: 14.9 cm2 Time Measurements MV dec time: 0.27 sec Doppler Measurements Calculations MV E max jam: 114.4 cm/sec Lat Peak E' Jam: 9.8 cm/sec Med Peak E' Jam: 8.1 cm/sec MV A max jam: 124.7 cm/sec E/E' lat: 11.7 E/E' med: 14.0 MV E/A: 0.92 MV V2 max: 137.6 cm/sec Ao V2 max: 184.7 cm/sec LV V1 max: 144.2 cm/sec MV max P.6 mmHg Ao max P.6 mmHg LV V1 max P.3 mmHg MV V2 mean: 80.1 cm/sec MV mean P.9 mmHg MV V2 VTI: 37.3 cm PA V2 max: 111.5 cm/sec TR max jam: 269.7 cm/sec MV P1/2t-pr_phl: 91.5 msec TR max P.1 mmHg ECHO/Echo Complete W/ Contrast Interpretation Summary The study was technically difficult. Contrast injection was performed. Left ventricular systolic function is normal. The estimated ejection fraction is 65 %. The left atrium is mildly enlarged. There is moderate to severe mitral annular calcification. Extension of the mitral annular calcification onto the base of the posterior mitral valve leaflet. Trivial mitral valve insufficiency. Mild tricuspid valve insufficiency. Right ventricular systolic pressure estimated to be 32 mmHg. No evidence for diastolic dysfunction. _ Ordering Physician: Polina Perrin Referring Physician: Polina Perrin Performed By: Kaya Page, RAQUEL 12/01/21 1035 Date Berlin Melton MD CC: Dr. Polina Perrin DO Date Dictated: 12/01/2130 Date Transcribed: 12/01/21 1035 Computer Hardware Engineer: Signed Polina Perrin DO Work Phone: Start: 07-24-2021 End: 07-24-2021 Thyroid Comments: See Note; NOTES: [facility] Imaging Services [address] [place] [address] Thyroid MR#: [id number] Acct: [id number] Name: ELDA VILLALOBOS Rep #: [id number] : 1955 F 65 From: Bret Patricia MD PCP: Dr. Polina Perrin DO Status: REG CLI Study: Thyroid Date of Exam: 07/24/21 Exam# [id number] Ordering Dr: Polina Perrin DO STUDY: THYROID ULTRASOUND REASON FOR EXAM: Female, 65 years old. Palpably enlarged thyroid TECHNIQUE: Ultrasound evaluation of the thyroid was performed with real-time and static domingo-scale imaging. COMPARISON: None. FINDINGS: RIGHT LOBE: The right lobe of the thyroid gland measures 4.6 x 1.3 x 1.5 cm. There is a heterogeneous echotexture. 3 separate solid hypoechoic nodules in the lower pole measuring between 0.4 and 0.7 cm. LEFT LOBE: The left lobe of the thyroid gland measures 3.8 x 1.2 x 1.0 cm. There is a homogeneous echotexture. There are no demonstrated solid, cystic or complex lesions. ISTHMUS: The isthmus measures 4 mm. The regional lymph nodes are normal. US/Thyroid IMPRESSION: Heterogeneous thyroid gland with multiple solid hypoechoic nodules in the right lobe all measuring less than 1 cm. Nodules are moderately suspicious but no FNA or follow-up is necessary given the small size of the nodules Electronically Signed: Gerard Patricia MD at 14:35 EST , CC: Dr. Polina Perrin DO Computer Hardware Engineer: Signed Polina Perrin DO Work Phone: Start: 06-12-2021 End: 06-12-2021 Knee 4 or More Views Comments: See Note; NOTES: [facility] Radiology [address] [place] [address] Knee 4 or More Views MR#: [id number] Acct: [id number] Name: ELDA VILLALOBOS Rep #: [id number] : 1955 F 65 From: Corbin rivera MD PCP: Dr. Polina Perrin DO Status: DEP AMB Study: Knee 4 or More Views Date of Exam: 06/12/21 Exam# [id number] Ordering Dr: Gentry Hernandez DO STUDY: X-RAY - RIGHT KNEE REASON FOR EXAM: Female, 65 years old. Pain TECHNIQUE: 4 view(s) of the knee. COMPARISON: None. FINDINGS: Normal visualized distal femur. Normal visualized proximal tibia and fibula. Normal proximal tibiofibular articulation. There is severe degenerative arthrosis of the medial femorotibial compartment with severe joint space narrowing. Normal lateral femorotibial compartment. There is mild degenerative arthrosis of the patellofemoral articulation. The soft tissue structures are unremarkable. RAD/Knee 4 or More Views IMPRESSION: Degenerative arthrosis. Electronically Signed: Corbin Zelaya MD at 15:18 EST , Service support , CC: Dr. Gentry Hernandez DO; Dr. Polina Perrin DO Computer Hardware Engineer: Signed Polina Perrin DO Work Phone: Start: 06-12-2021 End: 06-12-2021 Orthopedic Visit Report Comments: See Note; NOTES: [facility] [address] [place] [address] OFFICE VISIT Date of Service: 06/12/21 MR#: [id number] Acct: [id number] Name: ELDA VILLALOBOS Rep #: [id number] : 1955 Provider: Dr. Gentry oscar DO Age/Sex: 65/F Location: [facility].JESSICA Status: Signed Intake Vital Signs 06/12/21 08:27 Height 4 ft 11 in Weight: 262 lb BMI 52.9 Intake Visit Reasons: RIGHT KNEE Is patient in pain?: Yes Pain scale (1-10): 4 Allergies amoxicillin Allergy (Verified 06/12/21 08:28) Rash losartan Adverse Reaction (Intermediate, Verified 06/12/21 08:28) Hypotension and dizzy even on 12.5 mg Medications folic acid 2 tab PO DAILY 12/29/18 [History Confirmed 06/12/21] hydroxychloroquine 1 tab PO BID 12/29/18 [History Confirmed 06/12/21] methotrexate sodium 8 tab PO QWEEK 12/29/18 [History Confirmed 06/12/21] thyroid (pork) 1 tab PO DAILY 12/29/18 [History Confirmed 06/12/21] furosemide 40 mg tablet 40 mg PO .COMPLEX #135 tab 03/17/20 [Rx Confirmed 06/12/21] aspirin 325 mg tablet 325 mg PO DAILY 07/09/20 [History Confirmed 06/12/21] cholecalciferol (vitamin D3) 1,250 mcg (50,000 unit) capsule 1,250 mcg PO QWEEK 09/23/20 [History Confirmed 06/12/21] multivitamin 1 tab PO DAILY 06/12/21 [History Confirmed 06/12/21] [facility] Medical History (Updated 06/12/21 @ 09:02 by Sayda Muller) Atypical chest pain Essential hypertension History of left heart catheterization (10/03/13) Hyperlipidemia Hypothyroidism Mitral valve stenosis LUIZA on CPAP Osteoarthritis Osteoarthritis of right knee Other spondylosis, lumbosacral region Recurrent UTI Rheumatoid arthritis Surgical History History of hysterectomy ( 1981) History of lumbar spinal fusion (03/14/19) Family History Mother CVA (cerebral vascular accident) Thyroid disorder Father Heart disease Diabetes Grandmother Cancer Social History alcohol intake: never substance use type: does not use caffeine: Yes Type: coffee Number of servings: 1 HPI RIGHT KNEE Details: Parts of this documentation were recorded by a scribe, this documentation accurately reflects the service provided and the decisions made by me, Dr. Gentry Hernandez, DO 06/12/21 0751. ELDA VILLALOBOS is a 65 year old F here today new patient for right knee pain. Patient notes that she has had right knee pain for many years. She denies any known injury. Patient denies any prior knee surgeries. She complains of pain over her anterior knee. Patient complains of grinding into her knee. She has knee instability with walking long distances. Patient notes that she is unable to ambulate long distances due to her knee pain. She has increased pain with sleeping and her pain wakes her up at night. Patient had an injection many years ago. She denies any physical therapy or knee bracing. Patient is not taking any pain medications. She has been diagnosed with lupus and rheumatoid arthritis. She was recently on prednisone for the flu which did not help her knee pain. She denies any recent xrays or MRI. Ortho Exam General General: Yes no acute distress Neurologic: Yes alert Psychologic: Yes reasonable and appropriate Right Knee Skin/Wound: Yes CDI, No erythema, No ecchymosis and No swelling Knee ROM: Yes ROM-Extension -20 to 0 and Yes ROM-Flexion 0-140 (90) Examination: Yes Med jt line tenderness, No Lat jt line tenderness and No TTP Pes Anserine Stability: NML: Anterior Drawer, NML: Posterior Drawer, NML: Valgus 0, NML: Valgus 30, NML: Varus 0 and NML: Varus 30 Patella Translation: 1 Patella Grind: Yes KNEE: mild edema in legs. prominent varicose veins. numbness over lateral thigh from knee up. Left Knee Patella Translation: 1 Supplemental Info 06/12/2021 x-ray right knee: Advanced medial compartment arthrosis with varus deformity joint space collapse moderate bone spurs, lateral patellar tracking with patellofemoral arthrosis Coding Level of Care Code Off vis,new,level 3 Diagnoses Osteoarthritis of right knee M17.11 Assessment and Plan Assessment and Plan (1) Osteoarthritis of right knee: Status: Acute Plan - Dr. Gentry Hernandez, DO: Educated the patient about the anatomy of the knee and etiology of her pain. Spoke with her about her knee osteoarthritis and her options- total knee arthroplasty, physical therapy, bracing, steroid injection, or viscosupplementation injections. She may try glucosamine chondroitin, ibuprofen and tylenol. She is not a candidate for a total knee arthroplasty due to her BMI. She needs to get her BMI closer to 40 due to her increased risk of infection and failure of the implant. She will need to be around 198 pounds. Explained losing weight will help decrease the pressure on her knee and itself will help with the knee pain. The viscosupplementation injection wont be as helpful due to her severity of her osteoarthritis. Patient did not want to proceed with any injections at this time and wanted to try to lose weight first. Explained there is a program at [facility] called why weight. If she wants a referral, she may call our office and we will set her up with the program. Follow up when she loses weight or sooner if pain, swelling, numbness or associated symptoms, or concerns develop. All questions answered. Patient in agreement of plan. Plan Details Other Orders: Orders: Knee 4 or More Views Today M25.561 06/12/21926 <Electronically signed by Gentry Hernandez DO> Date Gentry Hernandez DO Cosigner Signature: Date (if applicable) CC: Polina Perrin DO Work Phone: Start: 02-03-2021 End: 02-03-2021 Pulmonary Visit Report Comments: See Note; NOTES: [facility] [place] [address] [place] [address] OFFICE VISIT Date of Service: 02/03/21 MR#: [id number] Acct: [id number] Name: ELDA VILLALOBOS Rep #: [id number] : 1955 Provider: Dr. Royal Thomason DO Age/Sex: 65/F Location: [facility] Status: Signed Assessment and Plan Assessment and Plan (1) LUIZA on CPAP: Status: Chronic Plan - Dr. Royal Thomason, DO: The patient has remained mostly compliant with the use of nocturnal CPAP therapy with a pressure support of 14 cm of water and appears to be benefiting clinically from its use. This regimen will be continued without change. (2) Obesity: Status: Acute Plan - Dr. Royal Thomason, DO: Weight loss through dietary modification and a graded exercise regimen is strongly encouraged. Plan Details Additional Comments: I spent 21 minutes today reviewing labs, records and history. Time includes coordination of care and interpretation of tests. This also includes time that I spent with the patient for the exam, formulation of treatment plan, patient education, as well as documenting clinical information. Follow Up: 1 Year ([facility]) HPI HPI Comments Details: The patient is a 65-year-old female who presents to the clinic today for a routine scheduled follow-up office visit. If you recall, the patient was previously referred to our office for the evaluation of sleep apnea. The patient completed a diagnostic polysomnogram in February 2016 which revealed an overall AHI of 17 events per hour. A follow-up titration study was then completed in March 2016 for which it was recommended that the patient be placed on nocturnal CPAP with a pressure support of 12 cm of water. Following her initial evaluation with our office, a retitration polysomnogram was completed in September 2020, for which it was recommended that the patient be on nocturnal CPAP with a pressure support of 14 cm of water. The patient's nocturnal compliance report was personally reviewed at today's office visit. Over the last 30 days, the patient has demonstrated an overall compliance rate of 73%. She has a prescribed pressure support of 14 cm of water with a residual AHI of 2.5. Today, the patient readily admits that she has been having difficulty with maintaining CPAP compliance due to caring for a sick family member. However, she does report that she has plans to make strides in the future and improving her overnight use of her Pap therapy. She does report that when she utilizes the therapy on a regular basis, she does feel much more rested upon awakening in the morning. She denies excessive daytime sleepiness or regular napping. Her weight and appetite have been stable. Intake Vital Signs 02/03/21 07:53 Height 4 ft 11 in Weight: 114.759 kg BP 126/78 H Blood Pressure Location Lt brachial Position Sitting Respiration 16 Pulse 68 Pulse Source Monitor Temp 97.3 F L Temperature Source Tympanic Pulse Oximetry (%) 100 Oxygen Delivery Method room air Intake Visit Reasons: 3 M FU Allergies amoxicillin Allergy (Verified 02/03/21 10:34) Rash losartan Adverse Reaction (Intermediate, Verified 02/03/21 10:34) Hypotension and dizzy even on 12.5 mg Medications folic acid 2 tab PO DAILY 12/29/18 [History Confirmed 02/03/21] hydroxychloroquine 1 tab PO BID 12/29/18 [History Confirmed 02/03/21] methotrexate sodium 8 tab PO QWEEK 12/29/18 [History Confirmed 02/03/21] thyroid (pork) 1 tab PO DAILY 12/29/18 [History Confirmed 02/03/21] furosemide 40 mg tablet 40 mg PO .COMPLEX #135 tab 03/17/20 [Rx Confirmed 02/03/21] aspirin 325 mg tablet 325 mg PO DAILY 07/09/20 [History Confirmed 02/03/21] cholecalciferol (vitamin D3) 1,250 mcg (50,000 unit) capsule 1,250 mcg PO QWEEK 09/23/20 [History Confirmed 02/03/21] lisinopril 2.5 mg tablet 2.5 mg PO DAILY 09/23/20 [History Confirmed 02/03/21] [facility] Medical History (Updated 02/03/21 @ 11:[address] Royal Thomason, DO) Atypical chest pain Essential hypertension History of left heart catheterization (10/03/13) Hyperlipidemia Hypothyroidism Mitral valve stenosis LUIZA on CPAP Osteoarthritis Other spondylosis, lumbosacral region Recurrent UTI Rheumatoid arthritis Surgical History History of hysterectomy ( 1981) History of lumbar spinal fusion (03/14/19) Family History Mother CVA (cerebral vascular accident) Thyroid disorder Father Heart disease Diabetes Grandmother Cancer Social History alcohol intake: never substance use type: does not use caffeine: Yes Type: coffee Number of servings: 1 Review of Systems Resp Respiratory: Yes as per HPI Exam Const Constitutional: Positive conversant, cooperative, in no acute respiratory distress, well developed, well nourished, good hygiene and obese Head Head: Yes normocephalic and Yes atraumatic Eyes Eye: Positive clear conjunctiva; Negative nystagmus or scleral abnormality Ears Ear: Positive hearing normal and external ears normal Mouth Wearing a mask. Neck Neck: Positive normal visual inspection, thick neck and trachea midline; Negative lymphadenopathy Chest Wall Chest: Positive symmetric chest movement Normal AP diameter. Resp lung sounds: Positive good air exchange; Negative wheezes, rhonchi or rales Cardio Cardiac: Positive regular rate, regular rhythm, S1 normal and S2 normal; Negative murmur, rub or gallop GI GI: Positive normal bowel sounds and obese Soft without distention Genitourinary: Positive deferred Musc Musculoskeletal: Positive steady gait Skin Pulmonary Skin Exam: Positive intact; Negative lesion, rash, ulcers or dermal atrophy Pulses Pulse: Yes Pedal pulses present: Extremities Extremities: No clubbing, No cyanosis and No edema Neuro Neurologic: Yes no focal neuro deficits, Yes conversant and Yes cooperative Lymph Lymphatic: No lymphadenopathy Psych Appearance: Positive grossly normal Mental Status: Positive mental status grossly normal Mood: Positive congruent mood Affect: Positive normal affect Coding Level of Care Code Off vis,est,level 3 Diagnoses LUIZA on CPAP G47.33; Z99.89 Obesity E66.9 Time Spent (min) 02/03/21 1111 <Electronically signed by Royal Thomason DO> Date Royal Thomason DO Cosigner Signature: Date (if applicable) CC: Polina Perrin DO Work Phone: Start: 09-23-2020 End: 09-23-2020 Pulmonary Visit Report Comments: See Note; NOTES: [facility] [place] [address] [place] [address] OFFICE VISIT Date of Service: 09/23/20 MR#: [id number] Acct: [id number] Name: ELDA VILLALOBOS Rep #: [id number] : 1955 Provider: FIFI Qureshi Age/Sex: 64/F Location: [facility] Status: Signed HPI <FIFI Dias NP - Last Filed: 09/23/20 09:55> HPI Comments Details: This patient presents to the office today to establish care of her known obstructive sleep apnea. She is ambulatory and currently on room air. Her obstructive sleep apnea was previously managed by her waste water operator. Unfortunately, he and she has not established with anyone else until this point. Last sleep study occurred at [facility] back in 2016. She is unsure if her weight is the same, but admits that she has been on prednisone several times since which typically causes her to gain weight. It often feels tired when waking up in the morning. She has noticed that she has begun snoring through the mask again. She did snore significantly prior to being set up with Pap therapy, once on Pap therapy no longer snores. This has returned. Is having about 2-3 episodes of nocturia each night. She is not currently napping but does fall asleep easily when sitting still. 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 She has never seen a financial planner. She has never been tested with regard to her lungs. She has never been prescribed an inhaler. She is a lifelong non-smoker. Past medical family history is consistent for: Mother had several strokes. Father had diabetes and heart disease. She has a brother with a bad heart , another brother of heart issues, 1 brother has a bad valve that was replaced in his heart, 1 brother had several stents placed in his heart. 3 sisters, 1 of which had a stroke, 1 of which had cardiac stents placed and the other has pretty good health. She has several children, her son has pretty good health, a daughter has obstructive sleep apnea, fibromyalgia and chronic fatigue syndrome, another daughter has endometriosis and asthma, 1 daughter suffers from long-term side effects of shingles, youngest daughter has a seizure disorder. The patient does not really have any difficulty with shortness of breath. She does have an occasional dry cough, which she believes may be related to her lisinopril. She denies any chest pain, wheezing or chest tightness. She does admit to occasional palpitations. She does have difficulty with lower extremity edema. She denies any fever, chills or body aches. She currently is being managed with a CPAP that she believes is set at 12 cm of water. She does typically have to take the SD card in to be download prior to her visits for follow-up. That did not occur prior to today's office visit. Intake <Kayleigh Qureshi NP, FOOD SERVICE SUPERVISOR-C - Last Filed: 09/23/20 09:55> Vital Signs 09/23/20 08:39 09/23/20 08:43 Height 4 ft 11 in Weight: 258 lb BMI 52.1 49.0 BP 122/68 H Blood Pressure Location Lt brachial Position Sitting Respiration 18 Pulse 60 Pulse Source Monitor Temp 97.4 F L Temperature Source Tympanic Pulse Oximetry (%) 96 Oxygen Delivery Method room air Intake Visit Reasons: sleep apnea Allergies amoxicillin Allergy (Verified 09/23/20 08:39) Rash losartan Adverse Reaction (Intermediate, Verified 09/23/20 08:39) Hypotension and dizzy even on 12.5 mg Medications folic acid 2 tab PO DAILY 12/29/18 [History Confirmed 09/23/20] hydroxychloroquine 1 tab PO BID 12/29/18 [History Confirmed 09/23/20] methotrexate sodium 8 tab PO QWEEK 12/29/18 [History Confirmed 09/23/20] thyroid (pork) 1 tab PO DAILY 12/29/18 [History Confirmed 09/23/20] furosemide 40 mg tablet 40 mg PO .COMPLEX #135 tab 03/17/20 [Rx Confirmed 09/23/20] aspirin 325 mg tablet 325 mg PO DAILY 07/09/20 [History Confirmed 09/23/20] cholecalciferol (vitamin D3) 1,250 mcg (50,000 unit) capsule 1,250 mcg PO QWEEK 09/23/20 [History Confirmed 09/23/20] lisinopril 2.5 mg tablet 2.5 mg PO DAILY 09/23/20 [History Confirmed 09/23/20] <Ana Rubin - Last Filed: 09/23/20 09:06> Vital Signs 09/23/20 08:39 09/23/20 08:43 Height 4 ft 11 in Weight: 258 lb BMI 52.1 49.0 BP 122/68 H Blood Pressure Location Lt brachial Position Sitting Respiration 18 Pulse 60 Pulse Source Monitor Temp 97.4 F L Temperature Source Tympanic Pulse Oximetry (%) 96 Oxygen Delivery Method room air Intake DME Vendor: [employer] [facility] <Kayleigh Qureshi NP, FOOD SERVICE SUPERVISOR-C - Last Filed: 09/23/20 09:55> Medical History (Updated 09/23/20 @ 09:48 by Kayleigh Qureshi NP, FOOD SERVICE SUPERVISOR-C) Atypical chest pain Essential hypertension History of left heart catheterization (10/03/13) Hyperlipidemia Hypothyroidism Mitral valve stenosis LUIZA on CPAP Osteoarthritis Other spondylosis, lumbosacral region Recurrent UTI Rheumatoid arthritis Surgical History History of hysterectomy ( 1981) History of lumbar spinal fusion (03/14/19) Family History Mother CVA (cerebral vascular accident) Thyroid disorder Father Heart disease Diabetes Grandmother Cancer Social History alcohol intake: never substance use type: does not use caffeine: Yes Type: coffee Number of servings: 1 <Ana Rubin - Last Filed: 09/23/20 09:06> Resp Respiratory: Yes as per HPI Exam <Kayleigh Qureshi NP, FOOD SERVICE SUPERVISOR-C - Last Filed: 09/23/20 09:55> Const Constitutional: Positive conversant, cooperative, in no acute respiratory distress, healthy appearing, well developed, well nourished, good hygiene and obese Head Head: Yes normocephalic and Yes atraumatic Eyes Eye: Positive clear conjunctiva; Negative nystagmus Ears Ear: Positive hearing normal and external ears normal; Negative hard of hearing Nose Nose: Yes external nose normal Neck Neck: Positive normal visual inspection, full ROM and trachea midline Chest Wall Chest: Positive normal inspection of the chest and symmetric chest movement; Negative increased A/P diameter Resp lung sounds: Positive clear to auscultation, good air exchange, normal expiratory time and normal respiratory effort; Negative diminished lung sounds, wheezes, rhonchi or rales Cardio Cardiac: Positive regular rate, regular rhythm, S1 normal and S2 normal; Negative murmur GI GI: Positive normal to inspection and obese; Negative distended Genitourinary: Positive deferred Musc Musculoskeletal: Positive steady gait and ROM normal; Negative kyphosis or scoliosis Skin Pulmonary Skin Exam: Positive intact; Negative lesion, rash or ulcers Extremities Extremities: No clubbing, No cyanosis and Yes edema Neuro Neurologic: Yes no focal neuro deficits, Yes conversant, Yes cooperative, Yes normal cognition, Yes normal coordination, Yes normal concentration and Yes understands questions Psych Appearance: Positive grossly normal, eye contact and well kempt Mental Status: Positive mental status grossly normal Mood: Positive congruent mood Affect: Positive normal affect Coding Level of Care Code Off vis,new,level 3 Diagnoses LUIZA on CPAP G47.33; Z99.89 BMI 45.0-49.9, adult Z68.42 Assessment and Plan <Kayleigh Qureshi NP, FOOD SERVICE SUPERVISOR-C - Last Filed: 09/23/20 09:55> Assessment and Plan (1) LUIZA on CPAP: Status: Chronic Plan: Deteriorated. The patient has several symptoms that are consistent with suboptimal management of her obstructive sleep apnea. She is agreeable to a titration study. She is using an older machine, she has a newer machine available to her. The newer machine belonged to her who just recently . After the results of the titration study are available for review, we will plan to set up the newer machine with the appropriate settings for her. She will then follow-up with Dr. Thomason in 3 months. He has been encouraged to contact the office with any difficulty acclimating to the new settings. (2) BMI 45.0-49.9, adult: Status: Acute Plan: Continue to encourage weight loss. Plan Details Follow Up: 3 Months (DMB) 09/23/20 0955 <Electronically signed by Kayleigh Qureshi NP FOOD SERVICE SUPERVISOR-C> Date Kayleigh Qureshi NP, NP-C Cosigner Signature: Date (if applicable) CC: DO Polina Garcia DO Work Phone: Start: 04-22-2020 End: 04-22-2020 CTA Chest W/WO Contrast Comments: See Note; NOTES: [facility] Imaging Services [address] [place] [address] CTA Chest W/WO Contrast MR#: [id number] Acct: [id number] Name: ELDA VILLALOBOS Rep #: [id number] : 1955 F 64 From: Damian Archuleta DO PCP: Dr. Polina Perrin DO Status: REG CLI Study: CTA Chest W/WO Contrast Date of Exam: 04/22/20 Exam# [id number] Ordering Dr: Polina Perrin DO STUDY: CTA CHEST REASON FOR EXAM: Female, 64 years old. SOB, HAD COVID 6 WKS AGO RADIATION DOSAGE (If Supplied By Facility): CTDIvol = ( 11.47 ) mGy, DLP = ( 498.19 ) mGycm TECHNIQUE: The examination was performed with the intravenous administration of IV 100mL Isovue-370. Post-processing of the angiographic images was performed, with multiplanar reformation and 3D reconstruction. Individualized dose optimization techniques were used for this CT. COMPARISON: Previous AP chest obtained on 12/29/2018 FINDINGS: A CT pulmonary exam was performed with IV contrast. The CT scan was performed is optimize visualization of the pulmonary arteries The pulmonary parenchyma was carefully examined and appears to be normal. The heart is normal. The superior mediastinum including the subcarinal bifurcation, both conrado and the superior mediastinum are normal. Careful attention was paid to the pulmonary arteries. No filling defects suggestive of pulmonary emboli are seen. There is normal branch pattern of the aortic arch. CT/CTA Chest W/WO Contrast IMPRESSION: Normal CTA chest examination, without a demonstrated pulmonary embolism. Electronically Signed: Damian Archuleta, at 15:02 EST Tel , Service support , CC: Dr. Polina Perrin DO Computer Hardware Engineer: Signed Polina Perrin Work Phone: Start: 01-02-2020 End: 01-02-2020 Dexa Bone Density/Append Skel Comments: See Note; NOTES: [facility] Imaging Services [address] [place] [address] Dexa Bone Density/Append Skel MR#: [id number] Acct: [id number] Name: ELDA VILLALOBOS Rep #: [id number] : 1955 F 64 From: Corbin rivera MD PCP: Dr. 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 -- TAKES THYROID MEDICATION -- TAKES DIURETIC -- TAKES CALCIUM AND MULTIVITAMIN -- DOES LITTLE EXERCISE -- FAMILY HX OF OSTEO- MOTHER -- HX OF ANKLE FX AND PELVIC FX -- HX OF LUMBAR FUSION RECENTLY -- GALLITO OF 3 INCHES TECHNIQUE: Bone Mineral Density (BMD) measurements of both forearms were obtained. COMPARISON: None. FINDINGS: Right Forearm: g/cm2 (0.787) / T-score (-1.1) / Z-score (0.2) Left Forearm: g/cm2 (0.882) / T-score (-0.1) / Z-score (1.3) BD/Dexa Bone Density/Append Skel IMPRESSION: The patient is considered osteopenic as outlined below according to World Jam Organization (WHO) criteria with a low fracture risk. Reference Information: The T-score is the number of standard deviations above or below the standard which is normal for young adults at their peak bone mineral density. The World Health Organization (WHO) interprets the T-scores as follows: Above -1 Normal bone density Between -1 and -2.5 Osteopenia Equal to / or below -2.5 Osteoporosis As a practical clinical guideline, osteopenia may be graded as follows: Mild -1 through -1.5 Moderate -1.6 through -2.0 Severe -2.1 through -2.4 The Z-score is the number of standard deviations above or below age-matched controls. A Z-score of less than -1.5 would be considered abnormal. References: 1. NIH Osteoporosis and Related Bone Diseases http://www.osteo.org 2. International Society for Clinical Densitometry http://www.iscd.org 3. National Osteoporosis Foundation http://www.nof.org Electronically Signed: Corbin Zelaya, at 15:23 EDT , Service support , CC: Dr. Polina Perrin DO Computer Hardware Engineer: Signed Polina Perrin Work Phone: Start: 01-02-2020 End: 01-11-2020 SCREEN MAMM (CAD) W/JOHN BILAT Comments: See Note; NOTES: [facility] Imaging Services [address] [place] [id number] SCREEN MAMM (CAD) W/JOHN BILAT MR#: [id number] Acct: [id number] Name: ELDA VILLALOBOS Rep #: [id number] : 1955 F 64 From: Coribn rivera MD PCP: Dr. Polina Perrin, Status: REG CLI Study: SCREEN MAMM (CAD) W/JOHN BILAT Date of Exam: 0 01/02/20 Exam# [id number] Ordering Dr: Polina Perrin DO MAMMOGRAPHY - BILATERAL SCREENING REASON FOR EXAM: Female, 64 years old. Routine annual screening examination. PERTINENT HISTORY: Non-contributory. TECHNIQUE: Digital bilateral breast john (3D mammographic acquisition) in the CC and MLO projections. 2-D mediolateral oblique (MLO) and craniocaudad (CC) views of both breasts were obtained. CAD: Full Field Digital Mammography with Computer Added Detection was performed. COMPARISON: Comparison is made with prior outside examination dated 03/01/2018. FINDINGS: Breast Composition: There are scattered areas of fibroglandular density. There are no dominant masses or suspicious calcifications. The previously seen 8.9 mm nodule in the upper central portion of the right breast is not seen at this time. Stable benign-appearing bilateral axillary lymph nodes. No other significant abnormalities are identified. There has been no significant change since the prior study. BI/SCREEN MAMM (CAD) W/JOHN BILAT IMPRESSION: Stable bilateral screening mammogram. Yearly follow-up mammogram recommended. (A) ASSESSMENT CATEGORY: BIRADS Category 2: Benign. A letter regarding these results will be sent to the patient by the facility within 30 days. Approximately 10% of breast cancers are not detected by mammography. A normal mammogram should not delay biopsy of a clinically suspicious abnormality. [id number] Electronically Signed: Corbin Zelaya, at 10:24 EDT , Service support , CC: Dr. Polina Perrin DO Computer Hardware Engineer: Signed Polina Perrin Work Phone: Start: 11-15-2019 End: 11-19-2019 Carotid Duplex Ultrasound Comments: See Note; NOTES: [facility] [address] [place] [address] Carotid Duplex Ultrasound 11/15/19 1409 MR#: [id number] Acct: [id number] Name: ELDA VILLALOBOS Rep #: [id number] : 1955 64 From: Vlad Parekh MD Attending Dr: Dr. Polina Perrin, Status: R EG CLI Ordering Dr: Polina Perrin DO Date: 11/15/19 Location: [facility] Sex: F C Admitted: Reason For Study: TIA, carotid stenosis Rt. Velocities/BP Lt. Velocities/BP Prox CCA 87.8/22.6 cm/sec. Prox CCA 82.6/22.6 cm/sec. Mid CCA 48.6/9.5 cm/sec. Mid CCA 77.3/21.3 cm/sec. Dist CCA 66.9/13.4 cm/sec. Dist CCA 77.3/23.9 cm/sec. Prox ICA 133.9/49.9 cm/sec. Prox ICA 64.3/18.6 cm/sec. Mid ICA 117.4/35.3 cm/sec. Mid ICA 89.1/31.7 cm/sec. Dist ICA 132.3/38.8 cm/sec. Dist ICA 148.5/51.7 cm/sec. Rt. ICA/CCA = 2.8. Lt. ICA/CCA = 1.9. Prox ECA 85.1/13.4 cm/sec. Prox ECA 64.3/6.9 cm/sec. Rt. Vert. 50.7/13.9 cm/sec. Lt. Vert. 50.9/14.6 cm/sec. Right Extracranial There is intimal thickening but no significant atherosclerotic plaque noted in the right common carotid artery. There is heterogeneous, irregular atherosclerotic plaque noted in the right internal carotid artery. The right internal carotid artery is very tortuous. There is heterogeneous, irregular atherosclerotic plaque noted in the right external carotid artery. Antegrade flow is noted in the right vertebral artery. Left Extracranial There is intimal thickening but no significant atherosclerotic plaque noted in the left common carotid artery. There is heterogeneous, irregular atherosclerotic plaque noted in the left internal carotid artery. The left internal carotid artery is very tortuous. There is intimal thickening but no significant atherosclerotic plaque noted in the left external carotid artery. Antegrade flow is noted in the left vertebral artery. Procedure Carotid Duplex 36253. The exam was diagnostic. Exam performed in department. Interpretation Summary Mild (<50%) stenosis right extracranial internal carotid. Mild (<50%) stenosis left extracranial internal carotid. Flow within the vertebral arteries is antegrade bilaterally. Elevated velocities in the internal carotid arteries appear to be related to vessel tortuosity rather than an occlusive process. Clinical correlation is advised. _ Ordering Physician: Polina Perrin Performed By: Joshua Looney RVRajeev 11/19/19 0807 Date Vlad Parekh MD CC: Dr. Polina Perrin, Date Dictated: 11/15/19 1409 Date Transcribed: 11/19/19 0807 Computer Hardware Engineer: Signed Polina Perrin Work Phone: Start: 11-15-2019 End: 11-16-2019 Echo Complete W/ Contrast Comments: See Note; NOTES: [facility] [address] [place] [address] Echo Complete W/ Contrast 11/15/19 1315 MR#: [id number] Acct: [id number] Name: ELDA VILLALOBOS Michael Rep #: [id number] : 1955 64 From: Catia Franklin MD Attending Dr: Dr. Polina Perrin, DO Status: R EG CLI Ordering Dr: Polina Perrin DO Date: 11/15/19 Location: [facility] Sex: F C Admitted: Reason For Study: TIA Procedure This was a 2D Doppler, Color Flow transthoracic echocardiogram. The study was technically difficult. Exam performed in department. Left Ventricle Normal LV size. The estimated ejection fraction is 60 %. No evidence for diastolic dysfunction. No regional wall motion abnormalities noted. Right Ventricle Normal RV size. Normal systolic function. Atria Normal left atrium. Normal right atrium. No doppler evidence for ASD. Mitral Valve There is no mitral valve stenosis. No mitral valve insufficiency. Tricuspid Valve There is no tricuspid stenosis. Unable to estimate RV systolic pressure due to insufficient tricuspid regurgitant envelope. Trivial tricuspid valve insufficiency. Aortic Valve Trisinus/trileaflet aortic valve. There is no aortic stenosis. No aortic valve insufficiency. Pulmonic Valve There is no pulmonic valvular stenosis. No pulmonic valve insufficiency. Great Vessels not well visualized. Pericardium/Pleural No pericardial effusion. Medication 22 gauge I.V. with prn adaptor inserted into left arm. Diluted definity 6ml given slow IV push to enhance endocardial definition. Performed a rapid injection of agitated mix of 9 cc saline and 1cc air to assess for atrial septal defect. MMode/2D Measurements Calculations LVIDd: 5.0 cm IVSd: 0.82 cm LAV(MOD-bp): 59.7 ml LVIDs: 3.3 cm LVPWd: 0.88 cm RVDd: 3.7 cm FS: 35.2 % LAV(MOD-bp) Indexed: 29.1 ml/m2 LAV(MOD-sp2): 83.6 ml LAV(MOD-sp4): 43.7 ml SV(MOD-sp4): 57.4 ml SV(sp4-el): 61.1 ml LVAd ap4: 28.9 cm2 EDV(MOD-sp4): 90.1 ml EDV(sp4-el): 94.4 ml LVAs ap4: 15.4 cm2 ESV(MOD-sp4): 32.7 ml ESV(sp4-el): 33.3 ml EF(MOD-sp4): 63.7 % EF(sp4-el): 64.7 % LA A4 area: 17.3 cm2 RA A4 area: 14.9 cm2 Time Measurements MV dec time: 0.29 sec Doppler Measurements Calculations MV E max jam: 112.8 cm/sec Lat Peak E' Jam: 12.9 cm/sec Med Peak E' Jam: 9.8 cm/sec MV A max jam: 123.6 cm/sec E/E' lat: 8.7 E/E' med: 11.5 MV E/A: 0.91 MV V2 max: 114.1 cm/sec MV P1/2t max jam: 107.1 cm/sec Ao V2 max: 202.7 cm/sec MV max P.2 mmHg MV P1/2t: 113.3 msec Ao max P.4 mmHg MV V2 mean: 77.8 cm/sec MV dec slope: 276.9 cm/sec2 MV mean P.7 mmHg MV V2 VTI: 38.3 cm MVA(P1/2t): 1.9 cm2 LV V1 max: 163.3 cm/sec PA V2 max: 125.6 cm/sec TR max jam: 297.2 cm/sec LV V1 max P.7 mmHg TR max P.3 mmHg Interpretation Summary The estimated ejection fraction is 60 %. No evidence for diastolic dysfunction. The study was technically difficult. Contrast injection was performed. _ Ordering Physician: Polina Perrin Referring Physician: Polina Perrin Performed By: Kaya Page RDCS 11/16/19 1523 Date Catia Franklin MD CC: Dr. Polina Perrin, DO Date Dictated: 11/15/19 1315 Date Transcribed: 11/16/19 1523 Computer Hardware Engineer: Signed Polina Perrin Work Phone: Start: 11-12-2019 End: 11-12-2019 Brain/Head without Contrast Comments: See Note; NOTES: [facility] Imaging Services [address] [place] [address] Brain/Head without Contrast MR#: [id number] Acct: [id number] Name: ELDA VILLALOBOS Rep #: [id number] : 1955 F 64 From: Bret Maldonado PCP: Dr. Polina Perrin, DO Status: REG CLI Study: Brain/Head without Contrast Date of Exam: 10/28 10/16 Exam# [id number] Ordering Dr: Polina Perrin DO STUDY: CT BRAIN WITHOUT CONTRAST REASON FOR EXAM: Female, 64 years old. PT STATED HX MINI STROKE 2016, RECENT HEADACHE, BLURRED VISION RADIATION DOSAGE (If Supplied By Facility): CTDIvol = ( 44.99 ) mGy, DLP = ( 762.36 ) mGycm TECHNIQUE: Transaxial CT imaging of the brain was performed without administration of intravenous contrast material. Individualized dose optimization techniques were used for this CT. COMPARISON: Noncontrast CT brain December 29, 2018. FINDINGS: Normal soft tissue structures. Normal calvarium. Normal size ventricles and extra-axial spaces for the patient''s age. Normal white matter tracts of the cerebral hemispheres. Normal basal ganglia and thalami. Normal brainstem. Normal cerebellum. There are atherosclerotic calcifications in the cavernous segments of the bilateral internal carotid arteries. There is no intracranial hemorrhage. There are no findings of an acute ischemic infarction. Normal visualized paranasal sinuses. CT/Brain/Head without Contrast IMPRESSION: No acute intracranial pathology. Electronically Signed: Gerard Clarke MD at 12:29 EDT , Service support , CC: Dr. Polina Perrin DO Computer Hardware Engineer: Signed Polina Perrin Work Phone: Start: 10-29-2019 End: 10-29-2019 Virtual Office Visit Comments: See Note; NOTES: [facility] Services [facility] [place] [address] OFFICE VISIT Date of Service: 10/29/19 MR#: [id number] Acct: [id number] Patient: ELDA VILLALOBOS Rep #: [id number] : 1955 Provider: Dr. Eric mcdermott MD Age/Sex: 64/F [place] [facility] [place] Signed Intake Vital Signs 10/29/19 Height 5 ft 10/29/19 Weight: 251 lb 10/29/19 BMI 49.0 10/29/19 BP 116/81 H 10/29/19 Blood Pressure Location Lt brachial 10/29/19 Position Sitting 10/29/19 Respiration 20 H 10/29/19 Pulse 70 10/29/19 Pulse Source Monitor 10/29/19 Comment Pt did vitals on home bp monitor Intake Visit Reasons: PHONE 6 M FU Automation Driver Required: No Is patient in pain?: No Allergies amoxicillin Allergy (Verified 04/16/19 09:53) Rash losartan Adverse Reaction (Intermediate, Verified 10/29/19 09:46) Hypotension and dizzy even on 12.5 mg Medications Folic Acid 2 tab PO DAILY 12/29/18 [History Confirmed 10/29/19] Hydroxychloroquine [Plaquenil] 1 tab PO BID 12/29/18 [History Confirmed 10/29/19] Methotrexate Sodium [Methotrexate] 8 tab PO QWEEK 12/29/18 [History Confirmed 10/29/19] Thyroid [[place] Thyroid] 1 tab PO DAILY 12/29/18 [History Confirmed 10/29/19] furosemide 40 mg tablet 40 mg PO .COMPLEX #135 tab 10/29/19 [Rx Confirmed 10/29/19] Is last menstrual period known: No Post menopausal: Yes Patient : No PFSH Medical History Mitral valve stenosis (Acute) History of left heart catheterization (Chronic 10/03/13) Hyperlipidemia (Chronic) Essential hypertension (Chronic) LUIZA on CPAP (Chronic) Hypothyroidism (Chronic) Osteoarthritis (Chronic) Other spondylosis, lumbosacral region (Chronic) Rheumatoid arthritis (Chronic) Atypical chest pain (Resolved) Recurrent UTI (Resolved) Surgical History History of hysterectomy (Resolved 1981) History of lumbar spinal fusion (Resolved 03/14/19) Family History Mother CVA (cerebral vascular accident) Thyroid disorder Father Heart disease Diabetes Grandmother Cancer Social History (Updated 10/29/19 @ 10:[address] Eric Huerta MD) Smoking Status: Never smoker alcohol intake: never substance use type: does not use caffeine: Yes Type: coffee Number of servings: 1 HPI HPI Details: Patient was informed that this visit will be billed to patient. This visit was conducted during - pandemic. Details: Mrs. Watson is a very pleasant 64-year-old morbidly obese female with a history of rheumatoid arthritis, possible CVA several years ago with no residual deficits, mild mitral valve stenosis, hyperlipidemia, hypertension, obstructive sleep apnea on CPAP. Patient was recently seen in the emergency room for chest pain that was atypical and lasted for a week on 12/29/2018. She was admitted for cardiac work-up, which included an echocardiogram and a non-walking nuclear stress test, the results of which are as below. Echocardiogram dated 12/29/2018 showed the following results: Based upon the 2D echocardiographic and contrast enhanced images obtained there appears to be grossly normal left ventricular size, wall motion, and systolic function. The estimated ejection fraction is 65 %. The left atrium is mildly enlarged. There is moderate to severe mitral annular calcification. Extension of the mitral annular calcification onto the mitral valve leaflets. Mild mitral valve stenosis. Trivial mitral valve insufficiency. Trivial tricuspid valve insufficiency. Right ventricular systolic pressure estimated to be 36 mmHg. No evidence for diastolic dysfunction. Subsequent to that, the patient underwent a non-walking nuclear stress test at [facility] on 12/30/2018 which was negative for inducible ischemia. In addition she underwent left heart catheterization with ventriculography on 10/03/2013 at [facility] which showed normal coronary arteries, no mitral regurgitation and an EF around 55 to 60%. The patient was self-referred to our office to monitor her mitral valve status and pulmonary pressures.Since her hospitalization in December 2018, she denies any chest pain, angina, shortness of breath or dyspnea on exertion. She recently underwent back surgery, and is walking much better now. Patient recently stopped her losartan as her blood pressure was under good control. She has had no appreciable changes in her activity level. Her blood pressure at home during this phone conference is 116/81 with a pulse of 70 and regular.. Her physical exam is deferred due to the COVID- pandemic. EKG dated 02/15/2019 shows normal sinus rhythm, normal axis, normal intervals, no evidence of previous myocardial infarction. Repeat lipids are pending. ROS Const Constitutional: Positive for other (Feels well other than her RA flaring up); no anorexia, body ache, chills, excessive sweating, fatigue, fever(s), frequent falls, headache(s), decreased energy, malaise, night sweats, snoring, weakness, weight change, sleep problems, abnormal sleep pattern or change in appetite Eyes Eyes: No blurry vision, change in vision, double vision, discharge, dry eyes, bulging eyes, floaters, visual disturbances, eye pain, light sensitivity, spots in vision, tunnel vision or other ENT ENT: No abnormal hearing, ear pain, ear discharge, ear pressure, hearing loss, tinnitus, dizziness/vertigo, balance problems, nosebleed/epistaxis, nasal congestion, nasal obstruction, nose pain, sinus pressure, sinus pain, nasal discharge, post nasal drip, headache(s), facial pain, dental pain, dry mouth, difficulty swallowing, bad breath, hoarseness, lip swelling, mouth lesions, mouth pain, neck pain, sore throat, tongue swelling, throat swelling or other Resp Respiratory: No cough, change in phlegm color, chest congestion, excessive phlegm production, hemoptysis, pain on inspiration, shortness of breath, pain with cough, snoring, stridor, wheezing or other Cardio Cardiology: No chest pain at rest, chest pain with exertion, leg pain with exertion, excessive sweating, shortness of breath, dyspnea on exertion, generalized swelling, irregular heart rhythm, lightheadedness, orthopnea, radiating jaw, neck or arm pain, fast heart rate, slow heart rate, palpitations or other Gastro GI: No abdominal pain, belching, bloating, change in bowel habits, change in stool character, coffee ground emesis, constipation, cramping, diarrhea, heartburn, difficulty swallowing, feeling full early, excessive flatus, incontinent of stools, Vomiting blood/hematemesis, blood in stool, loose stools, Black,tarry stools, nausea/dyspepsia, pain with swallowing, vomiting or other Musc Musculoskeletal: Positive for joint pain (has rheumatoid arthritis); no abnormal walking, back pain, deformity, joint swelling, limited range of motion, loss of height, muscle cramps, muscle weakness, decreased muscle mass, body aches, neck pain, numbness, radiating pain into limb, stiffness, tingling or other Skin Skin: No acne, hair loss, change in hair, nail changes, boil, change in skin color, dry skin, redness, excessive hair growth, yellowing of the skin, lesions, itching, rash, skin pain, skin ulcer, sores, skin swelling, wounds or other Breast Breast: No other Neuro Neurology: No abnormal walking, abnormal hearing, abnormal movements, abnormal speech, behavioral changes, confusion, unsteady gait/balance, dizziness, weakness, frequent falls, headache(s), lack of coordination, loss of vision, memory loss, numbness, tingling, visual disturbances, restless legs, fainting, tremor(s) or other Psych Psychiatric: No abnormal sleep pattern, No lack of enjoyment, No anxiety, No behavioral changes, No change in appetite, No confusion, No depression, No difficulty concentrating, No hopelessness, No irritability, No memory loss, No mood swings, No panic attacks, No paranoia, No Thoughts of harming yourself/Others, No hallucinations, No other Endo Endocrine: Positive for change in body appearance, cold intolerance, flushing, heat intolerance, increased thirst/drinking, increased hunger and increased urination; no excessive sweating, fatigue or other Aller/Imm Allergy/Immunologic: No food intolerance, itchy eyes, lip swelling, seasonal allergy symptoms, throat swelling, tongue swelling, hives, wheezing or other Fei/Lymp Hematologic/Lymphatic: No easy bleeding, easy bruising, enlarged lymph nodes or other Exam Const Other: Pt's physical exam deferred d/t telephone visit during COVID-19 Pandemic [facility] Musculoskeletal: No muscle weakness Details: Details:: Exam was limited due to phone visit with no video. Quality Reporting Medication Reconciliation (CMS 68) folic acid 2 tabs PO DAILY furosemide 40 mg PO 1 in the am and 1/2 tablet at lunch; hydroxychloroquine 1 tab PO BID methotrexate sodium 8 tabs PO QWEEK thyroid (pork) 1 tab PO DAILY BMI Screening (CMS 69) Body Mass Index (BMI): 52.8 Tobacco Screening (CMS 138) Smoking Status: Never smoker Assessment Plan 1. Mitral valve stenosis I05.0 Plan 1. Mitral stenosis: Patient has mild mitral stenosis, and recommend yearly echocardiograms to monitor her mitral valve as well as her pulmonary pressures which will take place in December 2019. In the meantime she will continue her Lasix. She is completely asymptomatic from a mitral valvular standpoint. 2. Hyperlipidemia E78.5 Plan 2. Hyperlipidemia: Her LDL and HDL cholesterol are pending. Orders Orders: Lipid Profile Today Liver Profile Today 3. LUIZA on CPAP G47.33; Z99.89 Plan 3. Obstructive sleep apnea: The patient is compliant with her CPAP, and feels much better using it. Recommend continuing CPAP therapy. 4. Return office in 6 months. This note was generated using a voice recognition system and there may be incorrect words, spelling or punctuation that were not noted when reviewing the office note prior to saving. Orders Orders: Echo Complete 2 Months Plan Detail Other Medications New: furosemide 40 mg PO 1 in the am and 1/2 tablet at lunch; 135 tabs 3RF Discontinued: losartan Discontinued Reason: Pt no longer taking 12.5 mg (1/2 x 25 mg) PO QAM 30 tabs 11RF Follow Up +6M ([place]) Coding Level of Care Code Level 2 Telephone Diagnoses Mitral valve stenosis I05.0 Hyperlipidemia E78.5 LUIZA on CPAP G47.33; Z99.89 10/29/19 1026 <Electronically signed by Eric Huerta MD> Date Eric Huerta MD Cosign Signature: Date (if applicable) CC: Dr. Polina Perrin, DO Polina Perrin Start: 05-02-2019 End: 05-02-2019 Office Visit Report Comments: See Note; NOTES: [facility] Services [facility] [place] [address] OFFICE VISIT Date of Service: 05/01/19 MR#: [id number] Acct: [id number] Patient: ELDA VILLALOBOS Rep #: [id number] : 1955 Provider: Eric Huerta MD Age/Sex: 63/F [place] [facility] [place]: Signed Intake Vital Signs05/01/19 Body Mass Index (BMI) 52.8 Intake Visit Reasons: 2 WK BP CK PER DJN Allergies amoxicillin Allergy (Verified 04/16/19 09:53) Rash Nursing Note Patient here today for a blood pressure check, she stopped Amlodipine and began Losartan 25mg daily. Patient states the Losartan 25mg made her feel lightheaded and dizzy, so she cut pill in half and the lightheadedness and dizziness went away. her blood pressure in the office today was 151/85, pulse 74, repeat blood pressure was 137/104, pulse 71. Per Dr. Huerta, patient is to take Losartan 1/2 pill in and am and 1/2 pill in pm. She is to monitor blood pressures and symptoms and call the office with update. Patient and daughter notified and verbalized understanding. 05/02/19 1113 <Electronically signed by Eric Huerta MD> Date Eric Huerta MD Cosigner Signature: Date (if applicable) CC: Polinanissa Perrin Start: 04-17-2019 End: 04-17-2019 Cardiology Visit Report Comments: See Note; NOTES: [facility] [address] [place] [address]. [address] [place] [address] OFFICE VISIT Date of Service: 04/17/19 MR#: [id number] Acct: [id number] Name: ELDA VILLALOBOS Rep #: [id number] : 1955 Provider: Eric Huerta MD Age/Sex: 63/F Location: [facility] [place] Status: Signed HPI HPI History of Present Illness Details: Mrs. Watson is a very pleasant 63-year-old morbidly obese female with a history of rheumatoid arthritis, possible CVA several years ago with no residual deficits, mild mitral valve stenosis, hyperlipidemia, hypertension, obstructive sleep apnea on CPAP. Patient was recently seen in the emergency room for chest pain that was atypical and lasted for a week on 12/29/2018. She was admitted for cardiac work-up, which included an echocardiogram and a non-walking nuclear stress test, the results of which are as below. Echocardiogram dated 12/29/2018 showed the following results: Based upon the 2D echocardiographic and contrast enhanced images obtained there appears to be grossly normal left ventricular size, wall motion, and systolic function. The estimated ejection fraction is 65 %. The left atrium is mildly enlarged. There is moderate to severe mitral annular calcification. Extension of the mitral annular calcification onto the mitral valve leaflets. Mild mitral valve stenosis. Trivial mitral valve insufficiency. Trivial tricuspid valve insufficiency. Right ventricular systolic pressure estimated to be 36 mmHg. No evidence for diastolic dysfunction. Subsequent to that, the patient underwent a non-walking nuclear stress test at [facility] on 12/30/2018 which was negative for inducible ischemia. In addition she underwent left heart catheterization with ventriculography on 10/03/2013 at [facility] which showed normal coronary arteries, no mitral regurgitation and an EF around 55 to 60%. The patient was self-referred to our office to monitor her mitral valve status and pulmonary pressures.Since her hospitalization in December 2018, she denies any chest pain, angina, shortness of breath or dyspnea on exertion. She recently underwent back surgery, and is walking much better now. In our office today her blood pressure is 102/70 and pulse is 60 and regular. Her physical exam demonstrates clear lungs bilaterally, regular rate and rhythm, normal S1/S2, no murmurs noted. She has trace to 1+ bilateral lower extremity edema. EKG dated 02/15/2019 shows normal sinus rhythm, normal axis, normal intervals, no evidence of previous myocardial infarction. Intake Vital Signs04/17/19 Body Mass Index (BMI) 52.8 Intake Visit Reasons: LEAKY VALVES (SELF REF, HUSB SEES VANESAN) Allergies amoxicillin Allergy (Verified 04/16/19 09:53) Rash Medications Folic Acid 2 tab PO DAILY 12/29/18 [History Confirmed 04/17/19] Hydroxychloroquine [Plaquenil] 1 tab PO BID 12/29/18 [History Confirmed 04/17/19] Methotrexate Sodium [Methotrexate] 8 tab PO QWEEK 12/29/18 [History Confirmed 04/17/19] Thyroid [[place] Thyroid] 1 tab PO DAILY 12/29/18 [History Confirmed 04/17/19] furosemide 40 mg tablet 40 mg PO .COMPLEX tab 04/17/19 [History Confirmed 04/17/19] losartan 25 mg tablet 25 mg PO DAILY #30 tab 04/17/19 [Rx Confirmed 04/17/19] [facility] Medical History (Updated 04/16/19 @ 10:10 by Destiney Torres) Mitral valve stenosis (Acute) History of left heart catheterization (Chronic 10/03/13) Hyperlipidemia (Chronic) Essential hypertension (Chronic) LUIZA on CPAP (Chronic) Hypothyroidism (Chronic) Osteoarthritis (Chronic) Other spondylosis, lumbosacral region (Chronic) Rheumatoid arthritis (Chronic) Atypical chest pain (Resolved) Recurrent UTI (Resolved) Surgical History (Updated 04/16/19 @ 10:04 by Destiney Torres) History of hysterectomy (Resolved 1981) History of lumbar spinal fusion (Resolved 03/14/19) Family History (Updated 04/16/19 @ 09:57 by Destiney Torres) Mother CVA (cerebral vascular accident) Thyroid disorder Father Heart disease Diabetes Grandmother Cancer Social History (Updated 04/17/19 @ 11:37 by Eric Huerta MD) Smoking Status: Never smoker alcohol intake: never substance use type: does not use caffeine: Yes Type: coffee Number of servings: 1 ROS Const Const: Positive for other (Former pt of Dr. Coyne, has severe mitral sclerosis,mild stenosis.); negative for fatigue, weakness, body ache, fever(s), headache(s), chills, frequent falls, night sweats, daytime sleepiness, difficulty sleeping, excessive sweating, weight gain, weight loss, increased appetite, poor appetite or anorexia Eyes Eyes: Negative for blind spots, loss of peripheral vision, transient loss of vision, blurry vision, change in vision, double vision, floaters, tunnel vision or other ENT ENT: Negative for headache(s), dizziness, hearing loss, tinnitus, Nosebleed/epistaxis, balance problems, post nasal drip, lip swelling, tongue swelling, bleeding gums, hoarseness, neck pain, dry mouth or other Cardio Chest Pain: No (None since December: was in [facility], found out had UTI) Palpitations: Yes (Occasionally if very tired) Edema: Bilateral (is on Lasix 60 qd) Muscle aches with walking: None Resp Respiratory: Positive for SOB with activity (occasionally) and other (Is on CPAP); negative for SOB at rest, SOB orthopnea\SOB lying down, Cough, Coughing up blood/hemoptysis, chest congestion, pain on inspiration, snoring, stridor, wheezing, crackles or paroxysmal nocturnal dyspnea GI GI: Negative nausea, vomiting, heartburn, constipation, belching, bloating, cramping, vomiting blood/hematemesis, bright, red blood in stools, black,tarry stools, loose stools, Difficulty Swallowing or other : Negative for hematuria, frequent nighttime urination/ nocturia, erectile dysfunction or abnormal vaginal bleeding Musc Musc: Negative for muscle aches/ myalgia, muscle weakness, joint pain or balance problems Skin Skin: Negative redness, non-healing lesions, rash, unusual bruising, skin ulcer, wounds, jaundice or other Neuro Neuro: Negative for dizziness, lightheadedness, near syncope, syncope, orthostatic symptoms, frequent falls, headache(s), weakness, confusion, memory loss, restless legs, blurry vision, double vision, vertigo, seizures, lack of coordination or other Fei Hematologic/Lymphatic: Negative for easy bleeding, easy bruising, enlarged lymph nodes or other Endo Endo: Negative for fatigue, cold intolerance, heat intolerance, excessive sweating, flushing, increased thirst/drinking, increased hunger, hair loss, hair growth or other Psych Psych: Negative for anxiety, depression, thoughts of harming anyone, thoughts of harming yourself, visual hallucinations, panic attacks or audible hallucinations Allergy Allergy/Immunology: Negative for throat swelling, Negative for tongue swelling, Negative for hives, Negative for rash, Negative for lip swelling Cardiology Exam Const Appearance: cooperative, healthy appearing and no acute distress Nutritional Appearance: well nourished Orientation: alert, oriented x3 and oriented to person Head Head: normal to inspection, normocephalic and atraumatic Nose: external nose normal Face and Sinus: face symmetric Mouth: oral mucosae normal Eyes General: appearance normal, both eyes and all related structures Eyelids: eyelids normal Conjunctivae: conjunctivae normal Pupils: PERRL and normal by confrontation EOM: EOM intact bilaterally Neck Neck: normal visual inspection and full ROM Carotids: normal carotid upstroke Chest Chest inspection: normal inspection of the chest Auscultation: Bilateral: Clear to Auscultation Cardio Palpation: normal PMI Rate: regular rate Rhythm: regular rhythm Heart sounds: S1 normal and S2 normal GI GI: normal to inspection, no hepatosplenomegaly and bowel sounds present Neuro General: alert, awake, oriented x3, CN's II-XI intact bilaterally and moves all extremities Skin Skin: no rashes or lesions noted Extremities Pulses: Normal: Right Femoral Pulse, Left Femoral Pulse, Right Dorsalis Pedis Pulse, Left Dorsalis Pedis Pulse, Right Posterior Tibial Pulse, Left Posterior Tibial Pulse, Right Radial Pulse, Left Radial Pulse Lower Extremity Edema: None: Bilateral Psych Psychological: normal affect Assessment AND Plan 1. Mitral valve stenosis I05.0 Plan 1. Mitral stenosis: Patient has evidence of moderate to severe mitral annular calcification superimposed on rheumatoid arthritis. Appears to be extension of the calcification onto the mitral leaflets with mild mitral valve stenosis as evidenced by echocardiogram on 12/29/2018. At that time her RVSP was 36 mmHg. Patient does not require further evaluation for mitral valve replacement at this time. I recommended that she undergo yearly echocardiograms for surveillance. 2. Essential hypertension I10 Plan 2. Hypertension: The patient struggles with lower extremity edema, possibly made worse by the side effects of amlodipine. Although her blood pressures fairly well controlled, I recommended that we discontinue her amlodipine to decrease her lower extremity edema as she convalesces from her recent back surgery and while she is walking with a walker. She will be switched to losartan 25 mg p.o. daily and we will continue her Lasix. She will return in 2 weeks time for a blood pressure check. 3. Hyperlipidemia E78.5 Plan 3. Hyperlipidemia: I recommend that she undergo a fasting lipid profile although she says that she recently had one done by her PCP. We will try to obtain those records. 4. Return office in 6 months. This note was generated using a voice recognition system and there may be incorrect words, spelling or punctuation that were not noted when reviewing the office note prior to saving. Plan Detail Other Medications New: Discontinued: Follow Up +6M (Huerta) +2 weeks (BP CHECK) Coding Level of Care Code Off vis,new,level 4 Diagnoses Mitral valve stenosis I05.0 Essential hypertension I10 Hyperlipidemia E78.5 Coding Level of Care Code Off vis,new,level 4 Diagnoses Mitral valve stenosis I05.0 Essential hypertension I10 Hyperlipidemia E78.5 Supplemental Info Supplemental Information Labs LDL Cholesterol 67 mg/dL (0-130) 12/30/18 HDL Cholesterol 38 mg/dL (40-) L 12/30/18 Triglycerides 58 mg/dL (-199) 12/30/18 VLDL Cholesterol 12 mg/dL (5-40) 12/30/18 Diagnostics Electrocardiogram 12/30/18 Echocardiogram 12/30/18 Stress Test Nuclear Medicine 12/30/18 Stress Test 12/30/18 Chest X-Ray 12/29/18 04/17/19 1138 <Electronically signed by Eric Huerta MD> Date Eric Huerta MD Cosigner Signature: Date (if applicable) CC: Polina Perrin DO Polina Perrin back surgery in [facility] 03/14/19 Katherine Gravius back surgery in [facility] 03/14/19 Katherine Gravius back surgery in [facility] Dr[facility] 03/14/19 Angi Cross back surgery in [facility] Dr[facility] 03/14/19 Katherine Gravius back surgery in [facility] Dr[facility] 03/14/19 Angi Cross back surgery in [facility] Dr[facility] 03/14/19 Katherine Gravius back surgery in [facility] Dr[facility] 03/14/19 Katherine Gravius back surgery in [facility] 03/14/19 Jenna Slarb ATTENDING PSYCHIATRIST back surgery in [facility] Dr[facility] 03/14/19 Katherine Gravius ER REGISTRAR back surgery in [facility] Dr[facility] 03/14/19 Kell A Fast DO Work Phone: back surgery in [facility] Dr[facility]Sho[facility]urd [facility] 03/14/19 Katherine Gravius ER REGISTRAR back surgery in [facility] Dr[facility] 03/14/19 Jenna Slarb ATTENDING PSYCHIATRIST back surgery in [facility] Dr[facility] 03/14/19 Katherine Gravius ER REGISTRAR back surgery in [facility] Dr[facility] 03/14/19 Katherine Gravius ER REGISTRAR back surgery in [facility] Dr[facility] 03/14/19 Katherine Gravius ER REGISTRAR back surgery in [facility] Dr[facility] 03/14/19 Fabrice Joo ATTENDING PSYCHIATRIST back surgery in [facility] Dr[facility] 03/14/19 Michelle De Paz MA back surgery in [facility] 03/14/19 Fabrice Joo ATTENDING PSYCHIATRIST Hysterectomy Hysterectomy Floridalma L Long Plan of Treatment Date Care Activity Detail Author Start: 02-25-2026 Diabetes Screening Diabetes Screening [facility] Start: 09-17-2025 DIABETES SCREEN DIABETES SCREEN [facility] Start: 12-17-2023 DIABETES SCREEN DIABETES SCREEN [facility] Start: 02-16-2023 Procedure Education Eprescribed prescriptions (G7309) [facility]; [facility] Work Phone: Start: 02-16-2023 Provider Instructions for Treatment [facility]; [facility] Work Phone: Start: 02-16-2023 Assay of thyroid stimulating hormone tsh TSH (78747) [facility]; [facility] Work Phone: Start: 02-16-2023 Urnls dip stick/tablet reagent auto microscopy URINALYSIS, W/ MICRO ([id number]) [facility]; [facility] Work Phone: Start: 02-16-2023 Urine albumin quantitative MICROALBUMIN: CREATININE RATIO ([id number]) AND (56158) [facility]; [facility] Work Phone: Start: 02-16-2023 Comprehensive metabolic panel METABOLIC PANEL, COMPREHENSIVE ([id number]) [facility]; [facility] Work Phone: Start: 02-16-2023 Lipid panel LIPID PANEL ([id number]) [facility]; [facility] Work Phone: Start: 02-16-2023 Blood count complete auto&auto difrntl wbc CBC W/AUTO DIFF WBC ([id number]) [facility]; [facility] Work Phone: Start: 01-28-2023 Influenza vaccination [facility] Start: 12-22-2022 End: 09-23-2023 25-hydroxyvitamin D3 [Mass/volume] in Serum or Plasma VITAMIN D 25 HYDROXY Lab Routine Vitamin D deficiency Expected: 12/22/2022 (Approximate), Expires: 09/23/2023 [facility] Work Phone: Payers Date Payer Category Payer Medicare HU[employer]NA MEDICARE HU[employer]NA MEDICARE PPO [id number] 2021-Present [phone] [place] [address] PPO [id number] 2021 Medicare HUMANA MEDICARE HU[employer]NA MEDICARE PPO [id number] 2021-Present [phone] [id number] [place] [id number] PPO [id number] 2021 Private Health Insurance [id number] 2020 Medicaid [id number] 2020 Medicare [id number] 2020 Unknown [id number] 1954 Unknown [id number] 1954 Unknown [id number] Unknown Social History Date Type Detail Facility Alcohol use: Never smoker [facility] Work Phone: Start: 02-25-2023 Caffeine use [facility] Work Phone: Functional Status Date Assessment Result Facility 01-22-2019 LP-IR Score LP-IR Score 56 [facility] Work Phone: Clinical Notes 10-20-2021 to 06-09-2023 Indra Metcalf MD - 02/25/2023 9:40 AM EDTPatient InstructionsTelephone Encounter - Indra Metcalf MD - 09/27/2022 9:06 PM EDTTelephone Encounter - Floridalma Guillen RN - 09/27/2022 1:26 PM EDT Note Date & Type Note Facility 06-09-2023 Note HNO ID: [id number] Author: JAN LEE MD Service: ? Author Type: Physician Type: Progress Notes Filed: 06/09/2023 11:54 Note Text: [facility] [place] [facility] Department of Cardiovascular Medicine SECTION OF CARDIOLOGY OUTPATIENT VISIT DATE June 09, 2023 OUTPATIENT VISIT TYPE NEW CONSULTATION CHIEF COMPLAINT: Heart failure HISTORY OF PRESENT ILLNESS: Ms. Villalobos is a pleasant 67 year old female here for cardiovascular evaluation. PMHx of for rheumatoid arthritis, obesity (BMI 50.32), hypertension, stroke in 2016, Never smoke. She says that she does not tolerate the cholesterol but her PCP says her cholesterol is good. Hospital admission in september 2022. Apparently she had congestive heart failure due to diastolic heart failure. She also has moderate stenosis in one carotid. Symptom-brown, She still have SANTOS. But she is still able walk better than before the admission. Palpitations on and off and sometimes chest pain with exertion and get better at rest. She says that her ultrasound is fine, with mild thickening severe distolic dysfunction and also that they check for CAD and no ischemia. She will send all the records to us. ECG: NS, ST/T slightly depression in the inferior and lateral wall. Family heart problem: Brother for heart failure a year ago at 77 yo. Another brother with heart problem with a AVR , pacemaker Another brother with stroke Sister has heart problem. The following portions of the patient's history were reviewed and updated as appropriate, allergies, current medications, past medical, social, surgical, and family history and problem list. PAST MEDICAL HISTORY Diagnosis Date Bilateral carotid artery stenosis Body mass index 45.0-49.9, adult (HCC) Chronic rheumatic arthritis ([facility]) Cough Dietary counseling Encounter for therapeutic drug monitoring Essential hypertension Family history of cardiovascular disease Family history of ischemic heart disease Fatigue Generalized osteoarthrosis, involving multiple sites Grieving H/O: hysterectomy Hypothyroid Inflammatory polyarthropathy (HCC) Medication side effect Multiple thyroid nodules Non-smoker Obesity, unspecified Obstructive sleep apnea (adult) (pediatric) Other spondylosis, lumbosacral region Postmenopausal Thyromegaly TIA (transient ischemic attack) Unspecified visual disturbance Urinary frequency PAST SURGICAL HISTORY Procedure Laterality Date BACK SURGERY HX 03/14/2019 Dr[facility] VAGINAL HYSTERECTOMY 1982 FAMILY HISTORY Problem Relation Age of Onset Stroke Mother Thyroid Mother Heart Father Diabetes Father Cancer Maternal Grandmother Social History Tobacco Use Smoking status: Never Smokeless tobacco: Never Vaping Use Vaping Use: Never used Substance Use Topics Alcohol use: Not Currently Drug use: Not Currently ALLERGIES Allergen Reactions Amoxicillin Hives CURRENT MEDICATIONS: hydrOXYchloroQUINE (PLAQUENIL) 200 mg tablet TAKE ONE TABLET BY MOUTH TWICE DAILY WITH FOOD. USE sunscreen AND see eye doctor every 6-12 months while taking metoprolol tartrate, short acting, (LOPRESSOR) 25 mg tablet TAKE 1/2 TABLET (12.5MG) BY MOUTH TWICE DAILY. HOLD FOR HEART RATE LESS THAN 50 OR SYSTOLIC BLOOD PRESSURE LESS THAN 100 nitroglycerin sublingual (NITROSTAT) 0.4 mg SL tablet 0.4 mg. methotrexate 2.5 mg tablet Take 8 tablets by mouth with food once a week. No alcohol. Hold if on antibiotics or ill. Hold 1-2weeks after vaccines. cholecalciferol, vitamin D3, (VITAMIN D3 ORAL) Take 5,000 Units by mouth twice daily. folic acid 1 mg tablet Take 2 tablets by mouth once daily. ibuprofen (MOTRIN) 600 mg tablet Take 1 tablet by mouth every 6 hours as needed for pain. predniSONE (DELTASONE) 5 mg tablet Day 1=6tabs with food, Day 2=5tabs, Day 3=4tabs, Day 4=3tabs, Day 5=2tabs, Day 6=1tab, No NSAIDs on med aspirin 325 mg tablet Take by mouth. furosemide (LASIX) 40 mg tablet Take 40 mg by mouth twice daily. lisinopril 2.5 mg tablet Take 2.5 mg by mouth once daily. ARMOUR THYROID 90 mg Take 90 mg by mouth once daily. I have personally interviewed, confirmed and edited the above information if obtained by others. REVIEW OF SYSTEMS: Chest pain No Shortness of breath Yes Bleeding No Dizziness Yes Syncope No Palpations Yes 10 systems reviewed and are negative with the exception of pertinent positives described in HPI PHYSICAL EXAMINATION: BP 100/66 (BP Site: Right Arm, BP Position: Sitting, BP Cuff Size: Regular Adult) Pulse 65 Wt 113 kg (249 lb 1.9 oz) SpO2 100% BMI 50.32 kg/m? HEENT: normocephalic, EOMI Heart: regular rhythm Lungs: clear to auscultation Abdomen: bowel sounds present Extremities: no edema Musculoskeletal: chest wall nontender Neurological: alert and oriented Psychiatric: appropriate and cooperative Skin: no rash, cellulitis or lesions a (more content not included)... [facility] 02-25-2023 Note HNO ID: [id number] Author: Indra Metcalf MD Service: ? Author Type: Physician Type: Progress Notes Filed: 02/25/2023 3:53 PM Note Text: Face to face follow up for rheumatoid arthritis/osteoarthritis/low vitamin D Today's visit 02/24/23:due for labs and bmd. taking plaquenil 2tabs daily, methotrexate 8tabs weekly, vitamin D 5000 International Units daily with food, motrin, folic acid daily, lasix, armour thyroid. Due for eye exam. 09/2022 in hospital for CHF, now taking 80mg lasix. No recent oral steroids. limited exercise due to CHF and pain, better with increased diuretic. Feet/ankles swelling in PM, hands swelling with weather changes and AM. Chronic current pain in hands, knees, hips, back, shoulders. Better with woaking in warm water and hot shower. Reports pain 4-5/10. Has 30 min minimal AM stiffness. Feels safe at home. Has enough food, supplies and medications. Overall mildly uncomfortable but happy with rheum care. No falls/fx/trauma/illness/oral sores/rash/hairloss/jaw pain/dysphagia/epistaxis/hemopt ysis since last visit. No adverse effects with meds. No other complaints. Patient denies fever, chills, cp, dyspnea, nausea, vomiting, night sweats, scalp tenderness, visual changes, kerr, bowel/bladder changes, weight changes or other complaints. Last visit supportive care,restart vitamin D script if level low, improved with plaquenil two tabs daily, start photoprotection, consult ophthalmology, increase water intake and follow up with primary care provider for UTI care, when infection free restart methotrexate 6-8tabs once a week (hold 1week prior to surgery), daily folic acid, see spine clinic, see ortho/possible TKR, see primary care provider/pain clinic for tank terminal gauger pain recommendations, see cardiology/on lasix, elevate legs when sitting/wear compression stockings, prn motrin/hold 1week prior to surgery, start prn heat/ice/otc arthritis creams AND pain patches, low impact weightbearing exercise as tolerated, avoid aggravating triggers, continue healthy weightloss with primary care provider 11/17/21:GPS directed her long way here. recent abnormal urine test 09/2021. On 2nd round of antibiotics for urinary tract infection. Will have R TKR soon. Lost 30lbs with diet and needs to lost another 30lbs prior to TKR. Off prednisone and taking motrin. OFF methotrexate 8tabs weekly and has more joint pain since off medication for UTI, completed vitamin D script, plaquenil 2tabs daily, lasix daily. Due for eye exam. Chronic current pain in R>L knees, shoulders, neck, back all over. Reports pain 6/10. minimal AM stiffness. Busy with plants. Will going to relative. Feels safe at home. Has enough food, supplies and medications. Overall uncomfortable but happy with rheum care. No falls/fx/trauma/illness/oral sores/rash/hairloss/jaw pain/dysphagia/epistaxis/hemopt ysis since last visit. No adverse effects with meds. No other complaints. Patient denies fever, chills, cp, dyspnea, nausea, vomiting, night sweats, scalp tenderness, visual changes, kerr, bowel/bladder changes, weight changes or other complaints. Last visit supportive care,restart vitamin D script if level low, improved with plaquenil two tabs daily, start photoprotection, see ophthalmology, increase water intake and follow up with primary care provider for UTI care, when infection free restart methotrexate 6-8tabs once a week, daily folic acid, see spine clinic, see ortho/possible TKR, see primary care provider/pain clinic for skilled nursing pain recommendations, see cardiology/on lasix, elevate legs when sitting/wear compression stockings, start prn heat/ice/otc arthritis creams AND pain patches, low impact weightbearing exercise as tolerated, avoid aggravating triggers See notes 12/16/20 for details on prior visits 12/16/20:completed vitamin D script. Has not missed plaquenil. Resumed methotrexate/folic acid. Joint pain better with rheum meds. Had rheumatoid arthritis joint pain flare, better with prednisone but does not like weightgain. Recently diagnosed with UTI, will picking supervisor antibiotics soon. Not drinking much water. Used to drink cranberry juice. High stress, daughter due for surgery for endometriosis. Chronic R knee, due for TKR in future. Has tried biofreeze. Due for eye exam. Had to take prednisone for joint pain flares every other month. No COVID vaccines. Chronic pain in back/neck/hands/shoulders. Reports pain /10. Minimal Am stiffness. 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 Feels safe at home. Has enough food, supplies and medications. Overall mildly uncomfortable but happy with rheum care. No falls/fx/trauma/illness/oral sores/rash/hairloss/jaw pain/dysphagia/epistaxis/hemopt ysis since last visit. No adverse effects with meds. No other complaints. Patient denies fever, chills, cp, dyspnea, nausea, vomiting, night sweats, scalp tenderness, visual changes, kerr (more content not included)... [facility] 02-25-2023 History of Presen t illness Narrative Face to face follow up for rheumatoid arthritis/osteoarthritis/low vitamin D Today's visit 02/24/23:due for labs and bmd. taking plaquenil 2tabs daily, methotrexate 8tabs weekly, vitamin D 5000 International Units daily with food, motrin, folic acid daily, lasix, armour thyroid. Due for eye exam. 09/2022 in hospital for CHF, now taking 80mg lasix. No recent oral steroids. limited exercise due to CHF and pain, better with increased diuretic. Feet/ankles swelling in PM, hands swelling with weather changes and AM. Chronic current pain in hands, knees, hips, back, shoulders. Better with woaking in warm water and hot shower. Reports pain 4-5/10. Has 30 min minimal AM stiffness. Feels safe at home. Has enough food, supplies and medications. Overall mildly uncomfortable but happy with rheum care. No falls/fx/trauma/illness/oral sores/rash/hairloss/jaw pain/dysphagia/epistaxis/hemopt ysis since last visit. No adverse effects with meds. No other complaints. Patient denies fever, chills, cp, dyspnea, nausea, vomiting, night sweats, scalp tenderness, visual changes, kerr, bowel/bladder changes, weight changes or other complaints. Last visit supportive care,restart vitamin D script if level low, improved with plaquenil two tabs daily, start photoprotection, consult ophthalmology, increase water intake and follow up with primary care provider for UTI care, when infection free restart methotrexate 6-8tabs once a week (hold 1week prior to surgery), daily folic acid, see spine clinic, see ortho/possible TKR, see primary care provider/pain clinic for skilled nursing pain recommendations, see cardiology/on lasix, elevate legs when sitting/wear compression stockings, prn motrin/hold 1week prior to surgery, start prn heat/ice/otc arthritis creams & pain patches, low impact weightbearing exercise as tolerated, avoid aggravating triggers, continue healthy weightloss with primary care provider 11/17/21:GPS directed her long way here. recent abnormal urine test 09/2021. On 2nd round of antibiotics for urinary tract infection. Will have R TKR soon. Lost 30lbs with diet and needs to lost another 30lbs prior to TKR. Off prednisone and taking motrin. OFF methotrexate 8tabs weekly and has more joint pain since off medication for UTI, completed vitamin D script, plaquenil 2tabs daily, lasix daily. Due for eye exam. Chronic current pain in R>L knees, shoulders, neck, back all over. Reports pain 6/10. minimal AM stiffness. Busy with plants. Will going to relative. Feels safe at home. Has enough food, supplies and medications. Overall uncomfortable but happy with rheum care. No falls/fx/trauma/illness/oral sores/rash/hairloss/jaw pain/dysphagia/epistaxis/hemopt ysis since last visit. No adverse effects with meds. No other complaints. Patient denies fever, chills, cp, dyspnea, nausea, vomiting, night sweats, scalp tenderness, visual changes, kerr, bowel/bladder changes, weight changes or other complaints. Last visit supportive care,restart vitamin D script if level low, improved with plaquenil two tabs daily, start photoprotection, see ophthalmology, increase water intake and follow up with primary care provider for UTI care, when infection free restart methotrexate 6-8tabs once a week, daily folic acid, see spine clinic, see ortho/possible TKR, see primary care provider/pain clinic for skilled nursing pain recommendations, see cardiology/on lasix, elevate legs when sitting/wear compression stockings, start prn heat/ice/otc arthritis creams & pain patches, low impact weightbearing exercise as tolerated, avoid aggravating triggers See notes 12/16/20 for details on prior visits 12/16/20:completed vitamin D script. Has not missed plaquenil. Resumed methotrexate/folic acid. Joint pain better with rheum meds. Had rheumatoid arthritis joint pain flare, better with prednisone but does not like weightgain. Recently diagnosed with UTI, will picking supervisor antibiotics soon. Not drinking much water. Used to drink cranberry juice. High stress, daughter due for surgery for endometriosis. Chronic R knee, due for TKR in future. Has tried biofreeze. Due for eye exam. Had to take prednisone for joint pain flares every other month. No COVID vaccines. Chronic pain in back/neck/hands/shoulders. Reports pain 6/10. Minimal Am stiffness. 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 Feels safe at home. Has enough food, supplies and medications. Overall mildly uncomfortable but happy with rheum care. No falls/fx/trauma/illness/oral sores/rash/hairloss/jaw pain/dysphagia/epistaxis/hemopt ysis since last visit. No adverse effects with meds. No other complaints. Patient denies fever, chills, cp, dyspnea, nausea, vomiting, night sweats, scalp tenderness, visual changes, kerr, bowel/bladder changes, weight changes or other complaints. Last visit supportive care, improved with plaquenil two tabs daily, start photoprotection, see ophthalmology, restart methotrexate 6-8tabs once a week, daily folic acid, see spine clinic, see ortho/possible TKR, see primary care provider/pain clinic for skilled nursing pain recommendations, see cardiology/on lasix, elevate legs when sitting/wear compression stockings, start prn heat/ice/otc arthritis creams & pain patches, low impact weightbearing exercise as tolerated, avoid aggravating triggers April 15, 2020 SUBJECTIVE Ms. Villalobos is a 64 year old female who presents for rheumatoid arthritis eval. 1983 pain in ankles, everywhere, hands, neck, low back, knee Diagnosed with lupus 1983, cheeks red 1983 Had labs and saw rheum (no longer takes her insurance) and diagnosed rheumatoid arthritis 2016 Lumbar stenosis and Lumbar pain with radiculopathy treated with surgery 02/2019 Herniated cervical disc with radiculopathy treated with surgery 04/2019 Told she has cervical stenosis Has thoracic pain too Told she should have TKR since imaging show bone on bone Tried methotrexate 2016, off now for recent UTI Improved with plaquenil 06/2017-present Eye exam Spring 2019, no medication toxicity, L eye floater High stress with recent On lasix due to fluid retention, has not seeing cardiology for a long time Reports pain 01/06 No falls/fx/trauma/illness/oral sores/rash/hairloss/jaw pain/dysphagia/epistaxis/hemopt ysis. No adverse effects with meds. No other complaints. Patient denies fever, chills, cp, dyspnea, nausea, vomiting, night sweats, scalp tenderness, visual changes, kerr, bowel/bladder changes, weight changes or other complaints. COMPLETE REVIEW OF SYSTEMS: RHEUM. ROS: Joint pain: yes R sided neck, lumbar area, hand Joint swelling: yes- DIPs Am stiffness: yes Low back pain: yes H/o precedent/frequent infection(s): as above Enthesopathy/[place]'s/heel/anika ntar tenderness: no Skin thickening, psoriasis, photosensitivity, purpura: cheeks red 1983 Alpecia, patchy: in the past before medications Eye inflammation: glasses SICCA: no Renal/liver disease: kidney stone years [place]/PNS/sz/cva/cancer disease: TIA 2014 & 10/2019 Fatigue: yes, sleeps 7 hr/night PMR/GCA ROS: negative Patient denies history of Gout or Pseudogout, Psoriasis, Rheumatic Fever, GERD, PUD, Liver Disease, Hepatitis , Kidney Disease, DM, CAD, PAD, Sinusitis, Asthma, TB infection or exposure, Pneumonias, Anemia, Seizures, MS, Clots, Cancer, Transfusions, Tattoos and Alcohol dependency. Other ROS:The remainder of the review of systems is negative. All other reviewed and negative other than HPI. PATIENT REPORTS: Cardiac stress test:years ago Breast exam:negativ/benign cyst Pap exam: normal, last menses s/p SUNDAR 1981 due to fibroids, temporarily/now not taking hormones; G7, P5, 2miscarriage Colonoscopy: 11/2019 hemorrhoids Bone Density 1year primary care provider (unsure of results) History of Fractures:R ankle fracture and R pelvis fractures late 1997 after fell Height Loss: 1 IMMUNIZATION HX: Pneumovax yes Flu shot no Tetanus yes Last PPD: negative PAST MEDICAL HISTORY: PMH htn, thyroid disease on medication, LUIZA, hyperlipidemia (off crestor due to joint pain), 11/2019 hemorrhoids, kidney stone years, TIA 2014 & 10/2019, s/p SUNDAR 1981 due to fibroids, s/p autograft spine surgery 05/11/19 with C2 fusion, s/p lumbar surgery 03/14/19/decompression/removed lamina, s/p tonsillectomy, s/p appy, s/p cholecystectomy PAST SURGICAL HISTORY: s/p autograft spine surgery 05/11/19 with C2 fusion, s/p lumbar surgery 03/14/19/decompression/removed lamina, s/p tonsillectomy, s/p appy, s/p cholecystectomy FAMILY HISTORY: brother-cva, mother-arthritis, father-CAD, cancer, DM; SOCIAL HISTORY: 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 , sister drove her to office visit Smoking no etoh no No gout MEDICATIONS: reviewed medlist 02/24/23 Calcium no Vitamin D completed script CURRENT ALLERGIES: Allergies As of Date: 02/25/2023 Allergen Noted Reaction AMOXICILLIN 04/15/2020 Hives Fully Assessed 11/17/2021 TESTS:All Diagnostic tests reviewed for today's visit: 09/17/22 high vitamin D 82.5;low potassium 3.4;normal rest of cmp, cbc, esr 10 (13), crp 0.7; Decker 10/21/21 high crp 4.18 (NL0-3mg/L), tsh 4.75, +nitrite, +blood/+100LE/+3bacteria on urinalysis;normal cmp, glucose 83, creat 0.71, alkaline phosphatase 96, ast 21, alt 22, calcium 9.5, potasium 4.1, cholesterol 191, triglycerides 93, vitamin D 81.3 (normal 30-100ng/mL), wbc 5.3, hgb 14.1, plts 247, esr 19 (normal 0-30mm/hr) 12/16/20 low vitamin D 26.6;NL cbc, cmp, esr 13, crp 0.4; Sandra 08/26/20 low vitamin D 26.9;+nitirite/LE on urinalysis;normal cmp, glu 94, creat 0.63, calcium 9.2, ast 18, alt 15, alk p 93, flp, potassium 3.9, tsh 2.59, wbc 4.5, hgb 12.8, plts 255, esr 23 (NL0-30mm/hr); 04/15/20 low vitamin D 17.3;+CCP22, +ZEV 1:160/homogenous, esr 27;NL rest of cbc, cmp, crp 0.2, uric acid 5, vitamin b12-613;negative rf<10, alona, dsdna<12, hepatitis panel, quantiferon tb; PHYSICAL EXAM:reviewed vitals BP 114/54 Pulse (!) 59 Wt 109.8 kg (242 lb) BMI 48.88 kg/m General Appearance: WD/WN, NAD. Appropriate grooming. Very pleasant. Ambulates slowly/stiffly due to knee pain without assistance or without assistive devices, speaks in full sentences without distress SKIN: No rash, no psoriasis, no purpura, no ulcers, no skin thickening/tightness, no telangiectasias. HEENT: No patchy alopecia, normal temporal artery pulsations, non-tender, scalp non-tender, no conjunctival injection or icterus, no oral ulcers, no thrush, normal nasal mucosa, no sinus tenderness, normal TM's. yes glasses, fair dentition NECK: neck supple w/o masses, no thyromegaly, no LAD. LUNGS: CTA, Good respiratory effort. HEART: RRR, - m/r/g ABDOMEN: soft, non-tender, no HSM/masses/bruits. EXTREMITIES: Adequate pulses b/l UE ; No clubbing,discoloration,scleroda ctyly, periungual erythema, digital ulcers, nail pitting, varicosities. MUSCULOSK: No joint deformities, no rheumatoid nodules, calcifications or tophi. No SI tenderness, no gricelda's tenderness, no heel/plantar tenderness, lumbar flexion full, negative Mona's test, tinel's and anthony tests Swoll JTS:heberden nodes, +1edema of ankles/feet Tend. JTS: hips, R>L knees, R sided neck, lumbar area, both hands, shoulders, decreased range of motion due to pain; no warmth/erythema No clinical synovitis in the DIP's, PIP's, MCP's, wrists, elbows, shoulders, knees, ankles, midfoot, or toes. no knee effusions bilateral. Shoulder exam:fair range of motion; no warmth/erythema Hip rom without pain LIMITATION of Motion of Joints: yes Thoracic/Lumbar Spine: No percussion tenderness SLR:negative No instability in any upper or lower extremity joints. NEURO: Mental Status: alert and oriented x 3, anxious, CN II - XII grossly intact Motor: 5/5 proximally and distally b/l Sensory: intact to fine touch TENDER POINTS: 0/18 Gait: see above Toe and heel walk abnormal. Tone: normal IMPRESSION/DIAGNOSIS:02/24/23 M06.09 Rheumatoid arthritis of multiple sites without rheumatoid factor (HCC) (primary encounter diagnosis) M19.90 Inflammatory arthritis M81.0 Postmenopausal osteoporosis of multiple sites I50.9 Chronic congestive heart failure, unspecified heart failure type (HCC) M79.641, M79.642 Bilateral hand pain M15.3 Secondary osteoarthritis of multiple sites R76.8 Cyclic citrullinated peptide (CCP) antibody positive Z79.899 Long-term use of Plaquenil M54.42, M54.41, G89.29 Chronic bilateral low back pain with bilateral sciatica M48.02 Cervical stenosis of spine Z79.899 Long-term use of high-risk medication R76.8 ZEV positive M25.561, M25.562, G89.29 Chronic pain of both knees M25.60 Joint stiffness of multiple sites Z87.311 Personal history of (healed) other pathological fracture M25.511, G89.29, M25.512 Chronic pain of both shoulders M25.551, M25.552, G89.29 Chronic hip pain, bilateral MsCesar Villalobos is a 67 year old [facility] female with PMH htn, thyroid disease on medication, LUIZA, hyperlipidemia (off crestor due to joint pain), 11/2019 hemorrhoids, kidney stone years, TIA 2014 & 10/2019, s/p SUNDAR 1981 due to fibroids, s/p autograft spine surgery 05/11/19 with C2 fusion, s/p lumbar surgery 03/14/19/decompression/removed lamina, s/p tonsillectomy, s/p appy, s/p cholecystectomy presents with 1983 pain in ankles, everywhere, hands, neck, low back, knee Diagnosed with lupus 1983, cheeks red 1983 Had labs and saw rheum (no longer takes her insurance) and diagnosed rheumatoid arthritis 2016 Lumbar stenosis and Lumbar pain with radiculopathy treated with surgery 02/2019 Herniated cervical disc with radiculopathy treated with surgery 04/2019 Told she has cervical stenosis Has thoracic pain too Told she should have TKR since imaging show bone on bone Tried methotrexate 2016, off now for recent UTI Improved with plaquenil 06/2017-present Eye exam Spring 2019, no medication toxicity, L eye floater High stress with recent On lasix due to fluid retention, has not seeing cardiology for a long time Reports pain 01/06 Has findings with inflammatory arthritis with features of lupus and rheumatoid arthritis, secondary osteoarthritis of multiple joint, cervicalgia, lumbago with sciatica, clinical osteoporosis with multiple fragility fractures, low vitamin D, here completed vitamin D script. Has not missed plaquenil. Had rheumatoid arthritis joint pain flare, better with prednisone but does not like weightgain. 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 Not drinking much water. Used to drink cranberry juice. High stress, daughter due for surgery for endometriosis. GPS directed her long way here. abnormal urine test 09/2021 treated with 2nd rounds of antibiotics for urinary tract infection. Will have R TKR soon. Lost 30lbs with diet and needs to lost another 30lbs prior to TKR. Off prednisone and taking motrin. has more joint pain when off methotrexate. Busy with plants. due for labs and bmd. taking plaquenil 2tabs daily, methotrexate 8tabs weekly, vitamin D 5000 International Units daily with food, motrin, folic acid daily, lasix, armour thyroid. Due for eye exam. 09/2022 in hospital for CHF, now taking 80mg lasix. No recent oral steroids. limited exercise due to CHF and pain, better with increased diuretic. Feet/ankles swelling in PM, hands swelling with weather changes and AM. Chronic current pain in hands, knees, hips, back, shoulders. Better with woaking in warm water and hot shower. Reports pain 4-5/10. Has 30 min minimal AM stiffness. Feels safe at home. Has enough food, supplies and medications. Overall mildly uncomfortable but happy with rheum care. = supportive care, consult cardiology for CHF care/patient request, restart vitamin D script if level low, improved with plaquenil two tabs daily, start photoprotection, see ophthalmology, increase water intake, improved with methotrexate 6-8tabs once a week (hold 1week prior to surgery), daily folic acid, see spine clinic, see ortho/possible TKR, see primary care provider/pain clinic for tank terminal gauger pain recommendations, elevate legs when sitting/wear compression stockings, prn motrin/hold 1week prior to surgery, start prn heat/ice/otc arthritis creams & pain patches, low impact weightbearing exercise as tolerated, avoid aggravating triggers, continue healthy weightloss with primary care provider, answered all questions and concerns, patient voiced understanding. RECOMMENDATION/PLAN: Office Visit on 02/25/23 DXA-AXIAL SKELETON DXA-FOREARM SKELETON CONSULT TO CARDIOLOGY Reviewed labs/tests with patient Provided printed info osteoarthritis, rheumatoid arthritis 02/24/23 check nonfasting labs every 3months, bone mineral density, consult cardiology Modified 02/24/23 HEMAL 0, pain 40-50%;11/17/21 HEMAL 0, pain 60%;12/16/20 HEMLA 0 pain 60%;April 15, 2020 HEMAL 0, pain 80%; May apply over the counter arthritis creams/patches (biofreeze, icy hot, asper cream, tiger balm, capsacin, lidocaine, salon pas, etc.) or over the counter pain patches to painful joints up to four times a day. Avoid contact with eyes. May take Extra Strength acetaminophen 500mg every 4-6hours for joint pain. Do not exceed 3000mg /day. Decrease stress Improve sleep May apply heat/ice 20minutes on and off to areas of pain Avoid aggravating triggers If needed, may take Calcium 1000mg daily with food in DIVIDED doses If labs normal, take Vitamin D 4000 International Units daily with food Hydroxychloroquine/Plaquenil: Please take one tab (200mg) twice a day with meals. When infection free, Please take Methotrexate 2.5mg tabs: Take 6-8tabs by mouth with food once a week Do not drink alcohol while taking methotrexate Have bloodwork every 8-12weeks for monitoring while taking Methotrexate Please take folic acid 1mg tab:Take 1tab by mouth daily Please hold methotrexate if on antibiotics or if you have any signs/symptoms of infection. Please see middle school humanities teacher every 6-12months while on Hydroxychloroquine. Recommend goal: exercising 30minutes 3-5 times a week Recommend weight-bearing aerobic exercises such as walking, dancing, low impact aerobics, elliptical machine, stair climbing, gardening flexibility exercises and strength training exercises Recommend avoiding high impact exercises such as jumping, running or jogging or movements where you bend forward and twist the waist, for instance- touching your toes, sit-ups, using row machine see ortho/cardiology tank terminal gauger pain recommendations per primary care provider/pain & spine clinic nonfasting labs as scheduled Additional time spent with patient on healthy lifestyle, healthy food and anti-inflammatory diet (with emphasis on whole plant based diet), avoiding refined carbs/sugars and processed food, appropriate exercise (stretching, cardio and strengthening), good sleep hygiene, stress mgt, and supplementing vital deficiencies and maintaining healthy wt and BMI. Additional information provided with references and educational information. Bone Health Recommendations: -Bone Density: After age 70 yrs, sooner if new clinical risk factors, or systemic steroid use of 3 months or more. -Vitamin D supplementation recommended, optimal dose is the dose necessary to achieve Vitamin D 25-OH blood level in range of 40-60 ng/mL. -Recommended daily dose of calcium: 1000-1200mg total a day in divided doses. Calcium from dietary sources, if not sufficient, or if with h/o calcium nephrolithiasis would recommend Calcium Citrate supplement, as it is recommended to avoid calcium carbonate products, which as main dietary calcium source. The after visit summary has information on dietary calcium and instructions on reading calcium label and converting the %DV to mg. -Regular weight-bearing and muscle-strengthening exercise -Avoidance of tobacco smoking, excessive alcohol intake and excessive caffeine intake. -Fall and fracture precautions -Continued regular dental follow up visits and good dental/gum care Stressed the importance of following up with PCP and specialists for his/her chronic diseases, health, CV, and cancer screening and continued care. Will follow disease activity/progression and adjust therapeutic regimen to disease activity and severity. Discussed medication dosage, usage, goals of therapy, and side effects. Available test results were reviewed An additional 20minutes were spent outside of the patient visit to review records. Additional time spent with the patient to discuss their questions. Additional time spent with the patient devoted to discussing treatment strategy, planning, and implementation. Discussed findings, impression and plan with patient. Patient understands above plan; questions asked and answered. Patient agrees to plan as noted above. Total time spent on this visit, with more than 50% of time spent in face to face with patient, in consultation, and in addition to Counseling and Coordination of Care, explanation of diagnosis, and planning of further management, I spent a total of 30 minutes on the date of the service which included preparing to see the patient, [id number] patient care, completing clinical documentation, obtaining and/or reviewing separately obtained history, performing a medically appropriate examination, counseling and educating the patient/family/caregiver, ordering medications, tests, or procedures, communicating with other HCPs (not separately reported), independently interpreting results (not separately reported), communicating results to the patient/family/caregiver and care coordination (not separately reported) Follow up 4-6months, earlier if needed (patient interested in a physician closer to home) Recommendations to share with referring physician/Primary care physician : Dear Dr.Kathleen Cameron Perrin, DO : I had the pleasure of seeing your patient, Elda Villalobos. I have enclosed a copy of my clinic note with my assessment and recommendations for this patient. Recommendations for your consideration as you deem necessary: -Continuous follow up with Primary care physician for cardiovascular disease prevention, for age appropriate cancer screening and routine health maintenance and wellness, and infection precautions and age appropriate immunization recommended. Thank you for allowing me to participate in the care of your patient. Indra Metcalf MD I will relay my findings and recommendations to the physician requesting the consult by letter/electronic shared medical records. cc Polina Perrin DO documented in this encounter [facility] 02-24-2023 Instructions Indra Metcalf MD - 02/24/2023 11:04 PM EDT May apply over the counter arthritis creams/patches (biofreeze, icy hot, asper cream, tiger balm, capsacin, lidocaine, salon pas, etc.) or over the counter pain patches to painful joints up to four times a day. Avoid contact with eyes. May take Extra Strength acetaminophen 500mg every 4-6hours for joint pain. Do not exceed 3000mg /day. Decrease stress Improve sleep May apply heat/ice 20minutes on and off to areas of pain Avoid aggravating triggers If needed, may take Calcium 1000mg daily with food in DIVIDED doses If labs normal, take Vitamin D 4000 International Units daily with food Hydroxychloroquine/Plaquenil: Please take one tab (200mg) twice a day with meals. Please take Methotrexate 2.5mg tabs:(HOLD 1-2weeks after vaccines) Take 6-8tabs by mouth with food once a week Do not drink alcohol while taking methotrexate Have bloodwork every 8-12weeks for monitoring while taking Methotrexate Please take folic acid 1mg tab:Take 1tab by mouth daily Please hold methotrexate if on antibiotics or if you have any signs/symptoms of infection. Please see middle school humanities teacher every 6-12months while on Hydroxychloroquine. Recommend goal: exercising 30minutes 3-5 times a week Recommend weight-bearing aerobic exercises such as walking, dancing, low impact aerobics, elliptical machine, stair climbing, gardening flexibility exercises and strength training exercises Recommend avoiding high impact exercises such as jumping, running or jogging or movements where you bend forward and twist the waist, for instance- touching your toes, sit-ups, using row machine see ortho/cardiology tank terminal gauger pain recommendations per primary care provider/pain & spine clinic Hold motrin/ methotrexate 1week prior to surgery. Ok to continue daily plaquenil. May resume methotrexate and motrin 1-2weeks after surgery if stable, infection free and off antibiotics. nonfasting labs as scheduled Thank you. BONE MINERAL DENSITY PATIENT INSTRUCTIONS Bone mineral density testing measures the amount of calcium in certain parts of your bones. This information determines how strong your bones are. The test is used to detect osteoporosis, a disease in which the bone's mineral content and density are low, increasing a person's risk of fractures. The lumbar spine (lower back) and the hip are the skeletal sites usually examined. For the test, remember that: 1. You cannot take this test if you are . 2. Eat a normal diet on the day of the test. 3. Take your medications as you normally would. 4. DO NOT take calcium supplements (such as Tums) for 24 hours before the test. 5. On the day of the test, leave valuables (jewelry or credit cards) at home. 6. The test should be performed prior to oral, rectal or IV contrast studies, or at least 7 days after any of these studies. For the test, you may be asked to wear a hospital gown. You will lie on your back, on a padded table, in a comfortable position. Generally, you can resume your usual activities immediately. documented in this encounter [facility] 09-27-2022 Miscellaneous Notes Notify patient medication sent as requested Thank you. Patient's request for medication is as follows: Requested Prescriptions Pending Prescriptions Disp Refills methotrexate 2.5 mg tablet 40 tablet 5 Sig: Take 8 tablets by mouth with food once a week. No alcohol. Hold if on antibiotics or ill. Hold 1-2weeks after vaccines. Prescription(s) as above. Please process accordingly. Indra Metcalf MD Patient calling in for refill on methotrexate. Noted that previous request was denied until patient had labs completed. Labs have been completed and patient states that she is now completely out of medication. She is asking if this can be ordered today so it can be delivered with her other medications on Tuesday. Please assist if appropriate. Patient phones requesting refills as follows: Requested Prescriptions Pending Prescriptions Disp Refills methotrexate 2.5 mg tablet 40 tablet 5 Sig: Take 8 tablets by mouth with food once a week. No alcohol. Hold if on antibiotics or ill. Hold 1-2weeks after vaccines. Please review and advise. Floridalma Guillen RN documented in this encounter [facility] 09-22-2022 Miscellaneous Notes Message provided to pt. Pt states understanding. Called and left message for patient to call back regarding message below from . Please Call patient to review results/released to My Chart if tests completed at [facility]: Mildly high normal vitamin D. Take over the counter vitamin D 5000 International Units EVERY OTHER DAY with food Mildly low normal potassium- increase potassium intake, care per primary care provider. Rest of labs normal and no inflammation. Recheck nonfasting labs in 3months.The orders have been placed. Happy to further review and discuss at follow up visit. Continue rest of treatment plan per instructions at last office visit. Thank you. 09/17/22 high vitamin D 82.5;low potassium 3.4;normal rest of cmp, cbc, esr 10 (13), crp 0.7; documented in this encounter [facility] 09-20-2022 Miscellaneous Notes Pt identified by name and Pt given message below Stated understanding Pt cancelled 4-25 apt and asking to r/s Call transferred to [facility] scheduling to assist with appt scheduling Left message for patient to call office regarding below. Please Call patient to review results/released to My Chart if tests completed at [facility]: Mildly low normal potassium- increase potassium intake, care per primary care provider. Rest of labs normal and no inflammation. Pending vitamin D. Will notify if abnormal. Happy to further review and discuss at follow up visit. Continue rest of treatment plan per instructions at last office visit. Thank you. 09/17/22 low potassium 3.4;normal rest of cmp, cbc, esr 10 (13), crp 0.7;pending vitamin D; documented in this encounter [facility] 11-17-2021 History of Presen t illness Narrative Face to face follow up for rheumatoid arthritis/osteoarthritis/low vitamin D Today's visit 11/17/21:GPS directed her long way here. recent abnormal urine test 09/2021. On 2nd round of antibiotics for urinary tract infection. Will have R TKR soon. Lost 30lbs with diet and needs to lost another 30lbs prior to TKR. Off prednisone and taking motrin. OFF methotrexate 8tabs weekly and has more joint pain since off medication for UTI, completed vitamin D script, plaquenil 2tabs daily, lasix daily. Due for eye exam. Chronic current pain in R>L knees, shoulders, neck, back all over. Reports pain 11/06. minimal AM stiffness. Busy with plants. Will going to relative. Feels safe at home. Has enough food, supplies and medications. Overall uncomfortable but happy with rheum care. No falls/fx/trauma/illness/oral sores/rash/hairloss/jaw pain/dysphagia/epistaxis/hemopt ysis since last visit. No adverse effects with meds. No other complaints. Patient denies fever, chills, cp, dyspnea, nausea, vomiting, night sweats, scalp tenderness, visual changes, kerr, bowel/bladder changes, weight changes or other complaints. Last visit supportive care,restart vitamin D script if level low, improved with plaquenil two tabs daily, start photoprotection, see ophthalmology, increase water intake and follow up with primary care provider for UTI care, when infection free restart methotrexate 6-8tabs once a week, daily folic acid, see spine clinic, see ortho/possible TKR, see primary care provider/pain clinic for tank terminal gauger pain recommendations, see cardiology/on lasix, elevate legs when sitting/wear compression stockings, start prn heat/ice/otc arthritis creams & pain patches, low impact weightbearing exercise as tolerated, avoid aggravating triggers See notes 12/16/20 for details on prior visits 12/16/20:completed vitamin D script. Has not missed plaquenil. Resumed methotrexate/folic acid. Joint pain better with rheum meds. Had rheumatoid arthritis joint pain flare, better with prednisone but does not like weightgain. Recently diagnosed with UTI, will picking supervisor antibiotics soon. Not drinking much water. Used to drink cranberry juice. High stress, daughter due for surgery for endometriosis. Chronic R knee, due for TKR in future. Has tried biofreeze. Due for eye exam. Had to take prednisone for joint pain flares every other month. No COVID vaccines. Chronic pain in back/neck/hands/shoulders. Reports pain 6/10. Minimal Am stiffness. 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 Feels safe at home. Has enough food, supplies and medications. Overall mildly uncomfortable but happy with rheum care. No falls/fx/trauma/illness/oral sores/rash/hairloss/jaw pain/dysphagia/epistaxis/hemopt ysis since last visit. No adverse effects with meds. No other complaints. Patient denies fever, chills, cp, dyspnea, nausea, vomiting, night sweats, scalp tenderness, visual changes, kerr, bowel/bladder changes, weight changes or other complaints. Last visit supportive care, improved with plaquenil two tabs daily, start photoprotection, see ophthalmology, restart methotrexate 6-8tabs once a week, daily folic acid, see spine clinic, see ortho/possible TKR, see primary care provider/pain clinic for skilled nursing pain recommendations, see cardiology/on lasix, elevate legs when sitting/wear compression stockings, start prn heat/ice/otc arthritis creams & pain patches, low impact weightbearing exercise as tolerated, avoid aggravating triggers April 15, 2020 SUBJECTIVE Ms. Villalobos is a 64 year old female who presents for rheumatoid arthritis eval. 1983 pain in ankles, everywhere, hands, neck, low back, knee Diagnosed with lupus 1983, cheeks red 1983 Had labs and saw rheum (no longer takes her insurance) and diagnosed rheumatoid arthritis 2016 Lumbar stenosis and Lumbar pain with radiculopathy treated with surgery 02/2019 Herniated cervical disc with radiculopathy treated with surgery 04/2019 Told she has cervical stenosis Has thoracic pain too Told she should have TKR since imaging show bone on bone Tried methotrexate 2016, off now for recent UTI Improved with plaquenil 06/2017-present Eye exam Spring 2019, no medication toxicity, L eye floater High stress with recent On lasix due to fluid retention, has not seeing cardiology for a long time Reports pain 01/06 No falls/fx/trauma/illness/oral sores/rash/hairloss/jaw pain/dysphagia/epistaxis/hemopt ysis. No adverse effects with meds. No other complaints. Patient denies fever, chills, cp, dyspnea, nausea, vomiting, night sweats, scalp tenderness, visual changes, kerr, bowel/bladder changes, weight changes or other complaints. COMPLETE REVIEW OF SYSTEMS: RHEUM. ROS: Joint pain: yes R sided neck, lumbar area, hand Joint swelling: yes- DIPs Am stiffness: yes Low back pain: yes H/o precedent/frequent infection(s): as above Enthesopathy/Gricelda's/heel/anika ntar tenderness: no Skin thickening, psoriasis, photosensitivity, purpura: cheeks red 1983 Alpecia, patchy: in the past before medications Eye inflammation: glasses SICCA: no Renal/liver disease: kidney stone years [place]/PNS/sz/cva/cancer disease: TIA 2014 & 10/2019 Fatigue: yes, sleeps 7 hr/night PMR/GCA ROS: negative Patient denies history of Gout or Pseudogout, Psoriasis, Rheumatic Fever, GERD, PUD, Liver Disease, Hepatitis , Kidney Disease, DM, CAD, PAD, Sinusitis, Asthma, TB infection or exposure, Pneumonias, Anemia, Seizures, MS, Clots, Cancer, Transfusions, Tattoos and Alcohol dependency. Other ROS:The remainder of the review of systems is negative. All other reviewed and negative other than HPI. PATIENT REPORTS: Cardiac stress test:years ago Breast exam:negativ/benign cyst Pap exam: normal, last menses s/p SUNDAR 1981 due to fibroids, temporarily/now not taking hormones; G7, P5, 2miscarriage Colonoscopy: 11/2019 hemorrhoids Bone Density 1year primary care provider (unsure of results) History of Fractures:R ankle fracture and R pelvis fractures late 1997 after fell Height Loss: 1 IMMUNIZATION HX: Pneumovax yes Flu shot no Tetanus yes Last PPD: negative PAST MEDICAL HISTORY: PMH htn, thyroid disease on medication, LUIZA, hyperlipidemia (off crestor due to joint pain), 11/2019 hemorrhoids, kidney stone years, TIA 2014 & 10/2019, s/p SUNDAR 1981 due to fibroids, s/p autograft spine surgery 05/11/19 with C2 fusion, s/p lumbar surgery 03/14/19/decompression/removed lamina, s/p tonsillectomy, s/p appy, s/p cholecystectomy PAST SURGICAL HISTORY: s/p autograft spine surgery 05/11/19 with C2 fusion, s/p lumbar surgery 03/14/19/decompression/removed lamina, s/p tonsillectomy, s/p appy, s/p cholecystectomy FAMILY HISTORY: brother-cva, mother-arthritis, father-CAD, cancer, DM; SOCIAL HISTORY: 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 , sister drove her to office visit Smoking no etoh no No gout MEDICATIONS: reviewed medlist 11/17/21 Calcium no Vitamin D completed script CURRENT ALLERGIES: Allergies As of Date: 11/17/2021 Allergen Noted Reaction AMOXICILLIN 04/15/2020 Hives Fully Assessed 08/11/2021 TESTS:All Diagnostic tests reviewed for today's visit: Sandra 10/21/21 high crp 4.18 (NL0-3mg/L), tsh 4.75, +nitrite, +blood/+100LE/+3bacteria on urinalysis;normal cmp, glucose 83, creat 0.71, alkaline phosphatase 96, ast 21, alt 22, calcium 9.5, potasium 4.1, cholesterol 191, triglycerides 93, vitamin D 81.3 (normal 30-100ng/mL), wbc 5.3, hgb 14.1, plts 247, esr 19 (normal 0-30mm/hr) 12/16/20 low vitamin D 26.6;NL cbc, cmp, esr 13, crp 0.4; Decker 08/26/20 low vitamin D 26.9;+nitirite/LE on urinalysis;normal cmp, glu 94, creat 0.63, calcium 9.2, ast 18, alt 15, alk p 93, flp, potassium 3.9, tsh 2.59, wbc 4.5, hgb 12.8, plts 255, esr 23 (NL0-30mm/hr); 04/15/20 low vitamin D 17.3;+CCP22, +ZEV 1:160/homogenous, esr 27;NL rest of cbc, cmp, crp 0.2, uric acid 5, vitamin b12-613;negative rf<10, alona, dsdna<12, hepatitis panel, quantiferon tb; PHYSICAL EXAM:reviewed vitals BP (!) 109/41 Pulse 66 Wt 103.4 kg (228 lb) BMI 46.05 kg/m General Appearance: WD/WN, NAD. Appropriate grooming. Very pleasant. Ambulates slowly/stiffly due to knee pain without assistance or without assistive devices, here with family SKIN: No rash, no psoriasis, no purpura, no ulcers, no skin thickening/tightness, no telangiectasias. HEENT: No patchy alopecia, normal temporal artery pulsations, non-tender, scalp non-tender, no conjunctival injection or icterus, no oral ulcers, no thrush, normal nasal mucosa, no sinus tenderness, normal TM's. yes glasses, fair dentition NECK: neck supple w/o masses, no thyromegaly, no LAD. LUNGS: CTA, Good respiratory effort. HEART: RRR, - m/r/g ABDOMEN: soft, non-tender, no HSM/masses/bruits. EXTREMITIES: Adequate pulses b/l UE ; No clubbing,discoloration,scleroda ctyly, periungual erythema, digital ulcers, nail pitting, varicosities. MUSCULOSK: No joint deformities, no rheumatoid nodules, calcifications or tophi. No SI tenderness, no gricelda's tenderness, no heel/plantar tenderness, lumbar flexion full, negative Mona's test, tinel's and anthony tests Swoll JTS:heberden nodes, +1edema of ankles/feet Tend. JTS: R>L knees, R sided neck, lumbar area, both hands, shoulders, decreased range of motion due to pain; no warmth/erythema No clinical synovitis in the DIP's, PIP's, MCP's, wrists, elbows, shoulders, knees, ankles, midfoot, or toes. no knee effusions bilateral. Shoulder exam:fair range of motion; no warmth/erythema Hip rom without pain LIMITATION of Motion of Joints: yes Thoracic/Lumbar Spine: No percussion tenderness SLR:negative No instability in any upper or lower extremity joints. NEURO: Mental Status: alert and oriented x 3, anxious, CN II - XII grossly intact Motor: 5/5 proximally and distally b/l Sensory: intact to fine touch TENDER POINTS: 0/18 Gait: see above Toe and heel walk abnormal. 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 Villalobos is a 66 year old [facility] female with PMH htn, thyroid disease on medication, LUIZA, hyperlipidemia (off crestor due to joint pain), 11/2019 hemorrhoids, kidney stone years, TIA 2014 & 10/2019, s/p SUNDAR 1982 due to fibroids, s/p autograft spine surgery 05/11/19 with C2 fusion, s/p lumbar surgery 03/14/19/decompression/removed lamina, s/p tonsillectomy, s/p appy, s/p cholecystectomy presents with 1983 pain in ankles, everywhere, hands, neck, low back, knee Diagnosed with lupus 1983, cheeks red 1983 Had labs and saw rheum (no longer takes her insurance) and diagnosed rheumatoid arthritis 2016 Lumbar stenosis and Lumbar pain with radiculopathy treated with surgery 02/2019 Herniated cervical disc with radiculopathy treated with surgery 04/2019 Told she has cervical stenosis Has thoracic pain too Told she should have TKR since imaging show bone on bone Tried methotrexate 2016, off now for recent UTI Improved with plaquenil 06/2017-present Eye exam Spring 2019, no medication toxicity, L eye floater High stress with recent On lasix due to fluid retention, has not seeing cardiology for a long time Reports pain 01/06 Has findings consistent with inflammatory arthritis with features of lupus and rheumatoid arthritis, secondary osteoarthritis of multiple joint, cervicalgia, lumbago with sciatica, clinical osteoporosis with multiple fragility fractures, low vitamin D, here completed vitamin D script. Has not missed plaquenil. Resumed methotrexate/folic acid. Joint pain better with rheum meds. Had rheumatoid arthritis joint pain flare, better with prednisone but does not like weightgain. Recently diagnosed with UTI, will picking supervisor antibiotics soon. Not drinking much water. Used to drink cranberry juice. High stress, daughter due for surgery for endometriosis. GPS directed her long way here. recent abnormal urine test 09/2021. On 2nd round of antibiotics for urinary tract infection. Will have R TKR soon. Lost 30lbs with diet and needs to lost another 30lbs prior to TKR. Off prednisone and taking motrin. OFF methotrexate 8tabs weekly and has more joint pain since off medication for UTI, completed vitamin D script, plaquenil 2tabs daily, lasix daily. Due for eye exam. Chronic current pain in R>L knees, shoulders, neck, back all over. Reports pain /10. minimal AM stiffness. Busy with plants. Will going to relative. Feels safe at home. Has enough food, supplies and medications. Overall uncomfortable but happy with rheum care. . = supportive care,restart vitamin D script if level low, improved with plaquenil two tabs daily, start photoprotection, consult ophthalmology, increase water intake and follow up with primary care provider for UTI care, when infection free restart methotrexate 6-8tabs once a week (hold 1week prior to surgery), daily folic acid, see spine clinic, see ortho/possible TKR, see primary care provider/pain clinic for skilled nursing pain recommendations, see cardiology/on lasix, elevate legs when sitting/wear compression stockings, prn motrin/hold 1week prior to surgery, start prn heat/ice/otc arthritis creams & pain patches, low impact weightbearing exercise as tolerated, avoid aggravating triggers, continue healthy weightloss with primary care provider, answered all questions and concerns, patient voiced understanding. RECOMMENDATION/PLAN: Office Visit on 11/17/21 DXA-AXIAL SKELETON DXA-FOREARM SKELETON CONSULT TO OPHTHALMOLOGY Reviewed labs/tests with patient Provided printed info osteoarthritis, rheumatoid arthritis 11/17/21 check nonfasting labs every 3months, BMD Modified 11/17/21 HEMAL 0, pain 60%;12/16/20 HEMAL 0 pain 60%;April 15, 2020 HEMAL 0, pain 80%; May apply over the counter arthritis creams/patches (biofreeze, icy hot, asper cream, tiger balm, capsacin, lidocaine, salon pas, etc.) or over the counter pain patches to painful joints up to four times a day. Avoid contact with eyes. May take Extra Strength acetaminophen 500mg every 4-6hours for joint pain. Do not exceed 3000mg /day. Decrease stress Improve sleep May apply heat/ice 20minutes on and off to areas of pain Avoid aggravating triggers Calcium 1000mg daily with food in DIVIDED doses If labs normal, take Vitamin D 4000 International Units daily with food Hydroxychloroquine/Plaquenil: Please take one tab (200mg) twice a day with meals. When infection free, Please take Methotrexate 2.5mg tabs: Take 6-8tabs by mouth with food once a week Do not drink alcohol while taking methotrexate Have bloodwork every 8-12weeks for monitoring while taking Methotrexate Please take folic acid 1mg tab:Take 1tab by mouth daily Please hold methotrexate if on antibiotics or if you have any signs/symptoms of infection. Please see middle school humanities teacher every 6-12months while on Hydroxychloroquine. Recommend goal: exercising 30minutes 3-5 times a week Recommend weight-bearing aerobic exercises such as walking, dancing, low impact aerobics, elliptical machine, stair climbing, gardening flexibility exercises and strength training exercises Recommend avoiding high impact exercises such as jumping, running or jogging or movements where you bend forward and twist the waist, for instance- touching your toes, sit-ups, using row machine see ortho/cardiology tank terminal gauger pain recommendations per primary care provider/pain & spine clinic nonfasting labs as scheduled Additional time spent with patient on healthy lifestyle, healthy food and anti-inflammatory diet (with emphasis on whole plant based diet), avoiding refined carbs/sugars and processed food, appropriate exercise (stretching, cardio and strengthening), good sleep hygiene, stress mgt, and supplementing vital deficiencies and maintaining healthy wt and BMI. Additional information provided with references and educational information. Bone Health Recommendations: -Bone Density: After age 70 yrs, sooner if new clinical risk factors, or systemic steroid use of 3 months or more. -Vitamin D supplementation recommended, optimal dose is the dose necessary to achieve Vitamin D 25-OH blood level in range of 40-60 ng/mL. -Recommended daily dose of calcium: 1000-1200mg total a day in divided doses. Calcium from dietary sources, if not sufficient, or if with h/o calcium nephrolithiasis would recommend Calcium Citrate supplement, as it is recommended to avoid calcium carbonate products, which as main dietary calcium source. The after visit summary has information on dietary calcium and instructions on reading calcium label and converting the %DV to mg. -Regular weight-bearing and muscle-strengthening exercise -Avoidance of tobacco smoking, excessive alcohol intake and excessive caffeine intake. -Fall and fracture precautions -Continued regular dental follow up visits and good dental/gum care Stressed the importance of following up with PCP and specialists for his/her chronic diseases, health, CV, and cancer screening and continued care. Will follow disease activity/progression and adjust therapeutic regimen to disease activity and severity. Discussed medication dosage, usage, goals of therapy, and side effects. Available test results were reviewed An additional 20minutes were spent outside of the patient visit to review records. Additional time spent with the patient to discuss their questions. Additional time spent with the patient devoted to discussing treatment strategy, planning, and implementation. Discussed findings, impression and plan with patient. Patient understands above plan; questions asked and answered. Patient agrees to plan as noted above. Total time spent on this visit, with more than 50% of time spent in face to face with patient, in consultation, and in addition to Counseling and Coordination of Care, explanation of diagnosis, and planning of further management, I spent a total of 30 minutes on the date of the service which included preparing to see the patient, [id number] patient care, completing clinical documentation, obtaining and/or reviewing separately obtained history, performing a medically appropriate examination, counseling and educating the patient/family/caregiver, ordering medications, tests, or procedures, communicating with other HCPs (not separately reported), independently interpreting results (not separately reported), communicating results to the patient/family/caregiver and care coordination (not separately reported) Follow up 4-6months, earlier if needed (patient interested in a physician closer to home) Recommendations to share with referring physician/Primary care physician : Dear Dr.Kathleen Cameron Perrin DO : I had the pleasure of seeing your patient, Elda Villalobos. I have enclosed a copy of my clinic note with my assessment and recommendations for this patient. Recommendations for your consideration as you deem necessary: -Continuous follow up with Primary care physician for cardiovascular disease prevention, for age appropriate cancer screening and routine health maintenance and wellness, and infection precautions and age appropriate immunization recommended. Thank you for allowing me to participate in the care of your patient. Indra Metcalf MD I will relay my findings and recommendations to the physician requesting the consult by letter/electronic shared medical records. cc Polina Perrin DO documented in this encounter [facility] 11-17-2021 Instructions Indra Metcalf MD - 11/17/2021 7:00 AM EDT May apply over the counter arthritis creams/patches (biofreeze, icy hot, asper cream, tiger balm, capsacin, lidocaine, salon pas, etc.) or over the counter pain patches to painful joints up to four times a day. Avoid contact with eyes. May take Extra Strength acetaminophen 500mg every 4-6hours for joint pain. Do not exceed 3000mg /day. Decrease stress Improve sleep May apply heat/ice 20minutes on and off to areas of pain Avoid aggravating triggers If needed, may take Calcium 1000mg daily with food in DIVIDED doses If labs normal, take Vitamin D 4000 International Units daily with food Hydroxychloroquine/Plaquenil: Please take one tab (200mg) twice a day with meals. Please take Methotrexate 2.5mg tabs:(HOLD 1-2weeks after vaccines) Take 6-8tabs by mouth with food once a week Do not drink alcohol while taking methotrexate Have bloodwork every 8-12weeks for monitoring while taking Methotrexate Please take folic acid 1mg tab:Take 1tab by mouth daily Please hold methotrexate if on antibiotics or if you have any signs/symptoms of infection. Please see middle school humanities teacher every 6-12months while on Hydroxychloroquine. Recommend goal: exercising 30minutes 3-5 times a week Recommend weight-bearing aerobic exercises such as walking, dancing, low impact aerobics, elliptical machine, stair climbing, gardening flexibility exercises and strength training exercises Recommend avoiding high impact exercises such as jumping, running or jogging or movements where you bend forward and twist the waist, for instance- touching your toes, sit-ups, using row machine see ortho/cardiology tank terminal gauger pain recommendations per primary care provider/pain & spine clinic Hold motrin/ methotrexate 1week prior to surgery. Ok to continue daily plaquenil. May resume methotrexate and motrin 1-2weeks after surgery if stable, infection free and off antibiotics. nonfasting labs as scheduled [facility]! Thank you. BONE MINERAL DENSITY PATIENT INSTRUCTIONS Bone mineral density testing measures the amount of calcium in certain parts of your bones. This information determines how strong your bones are. The test is used to detect osteoporosis, a disease in which the bone's mineral content and density are low, increasing a person's risk of fractures. The lumbar spine (lower back) and the hip are the skeletal sites usually examined. For the test, remember that: 1. You cannot take this test if you are . 2. Eat a normal diet on the day of the test. 3. Take your medications as you normally would. 4. DO NOT take calcium supplements (such as Tums) for 24 hours before the test. 5. On the day of the test, leave valuables (jewelry or credit cards) at home. 6. The test should be performed prior to oral, rectal or IV contrast studies, or at least 7 days after any of these studies. For the test, you may be asked to wear a hospital gown. You will lie on your back, on a padded table, in a comfortable position. Generally, you can resume your usual activities immediately. documented in this encounter [facility] 10-24-2021 Miscellaneous Notes -Called and left message on pt's VM for message below. Notify patient medication sent as requested Thank you. Patient's request for medication is as follows: Signed Prescriptions Disp Refills methotrexate 2.5 mg tablet 40 tablet 5 Sig: Take 8 tablets by mouth with food once a week. No alcohol. Hold if on antibiotics or ill. Hold 1-2weeks after vaccines. DEMARIO: No Authorizing Provider: INDRA METCALF Prescription(s) as above. Please process accordingly. Indra Metcalf MD Most recent Rheumatology visit: 12/16/2020 (with Indra Metcalf) Upcoming Rheumatology Appointments - Next 365 Days Visit Type Date Time Department [facility] 11/17/2021 7:00 AM [facility] Last Ophthalmology Check for Plaquenil (Hydroxychloroquine) Last OCT Macula Exam No resulted procedures found. Last Visual Field Exam No resulted procedures found. CBC: None on file in the last 6 months Vitamin D: None on file in the last 6 months LFT: None on file in the last 6 months Creatinine:None on file in the last 6 months ESR/CRP: None on file in the last 6 months Uric Acid: None on file in the last 6 months Open Standing (Multiple Instance) Lab Orders None Open Future (Single Instance) Lab Orders Expected Expires Ordered COMP METABOLIC PANEL [SQCMP] 03/21/21 12/19/21 12/19/20 Auth. provider: Indra Metcalf MD Assoc. diagnoses: Elevated LFTs CBC [SQCBC] 03/21/21 12/19/21 12/19/20 Auth. provider: Indra Metcalf MD Assoc. diagnoses: Anemia of chronic disease SED RATE WESTERGREN [SQWSR] 03/21/21 12/19/21 12/19/20 Auth. provider: Indra Metcalf MD Assoc. diagnoses: Elevated sed rate, Elevated C-reactive protein (CRP) C-REACTIVE PROTEIN (CRP) [SQCRP] 03/21/21 12/19/21 12/19/20 Auth. provider: Indra Metcalf MD Assoc. diagnoses: Elevated sed rate, Elevated C-reactive protein (CRP) VITAMIN D 25 HYDROXY [SQVITD] 03/21/21 12/19/21 12/19/20 Auth. provider: Indra Metcalf MD Assoc. diagnoses: Vitamin D deficiency Patient aware labs have been mailed to home address on file. Patient requesting where lab orders were mailed to and an update on medication refill. Please call patient to advise. Ok to leave message. [phone] LMTCB. Mailed out lab orders. Please Call patient to review results/released to My Chart if tests completed at [facility]: Abnormal urine test, high crp- maybe associated with possible infection, follow up with primary care provider for any urinary symptoms. Borderline abnormal thyroid test- care per primary care provider. Continue over the counter vitamin D 4000 International Units daily with food.. Rest of labs improved/ normal. Recheck nonfasting labs in 3months, orders have been placed. May send lab orders cmp, cbc, esr, crp, vitamin D and fax results to rheum office. Happy to further review and discuss at follow up office visit. Continue rest of treatment plan per instructions at last office visit. Thank you. Sandra 10/21/21 high crp 4.18 (NL0-3mg/L), tsh 4.75, +nitrite, +blood/+100LE/+3bacteria on urinalysis;;normal cmp, glucose 83, creat 0.71, alkaline phosphatase 96, ast 21, alt 22, calcium 9.5, potasium 4.1, cholesterol 191, triglycerides 93, vitamin D 81.3 (normal 30-100ng/mL), wbc 5.3, hgb 14.1, plts 247, esr 19 (normal 0-30mm/hr) 12/16/20 low vitamin D 26.6;NL cbc, cmp, esr 13, crp 0.4; documented in this encounter [facility] 10-24-2021 Miscellaneous Notes Duplicate methotrexate 2.5 mg tablet 40 tablet 5 10/23/2021 Sig: Take 8 tablets by mouth with food once a week. No alcohol. Hold if on antibiotics or ill. Hold 1-2weeks after vaccines. Sent to pharmacy as: methotrexate 2.5 mg tablet Class: Normal Order: [id number] E-Prescribing Status: Receipt confirmed by pharmacy (10/23/2021 6:21 PM EDT) Prior authorization: Approved Pending Prescriptions Disp Refills METHOTREXATE SODIUM 2.5 MG TABLET 40 tablet 5 Sig: TAKE EIGHT TABLETS BY MOUTH WITH FOOD ONCE A WEEK. HOLD IF ON ANTIBIOTICS AND IF RECEIVING VACCINES DEMARIO: No Most recent Rheumatology visit: 12/16/2020 (with Indra Metcalf) Upcoming Rheumatology Appointments - Next 365 Days Visit Type Date Time Department [facility] MED[facility] EXT 11/17/2021 7:00 AM [facility] Last Ophthalmology Check for Plaquenil (Hydroxychloroquine) Last OCT Macula Exam No resulted procedures found. Last Visual Field Exam No resulted procedures found. CBC: None on file in the last 6 months Vitamin D: None on file in the last 6 months LFT: None on file in the last 6 months Creatinine:None on file in the last 6 months ESR/CRP: None on file in the last 6 months Uric Acid: None on file in the last 6 months Open Standing (Multiple Instance) Lab Orders None Open Future (Single Instance) Lab Orders Expected Expires Ordered COMP METABOLIC PANEL [SQCMP] 03/21/21 12/19/21 12/19/20 Auth. provider: Indra Metcalf MD Assoc. diagnoses: Elevated LFTs CBC [SQCBC] 03/21/21 12/19/21 12/19/20 Auth. provider: Indra Metcalf MD Assoc. diagnoses: Anemia of chronic disease SED RATE WESTERGREN [SQWSR] 03/21/21 12/19/21 12/19/20 Auth. provider: Indra Metcalf MD Assoc. diagnoses: Elevated sed rate, Elevated C-reactive protein (CRP) C-REACTIVE PROTEIN (CRP) [SQCRP] 03/21/21 12/19/21 12/19/20 Auth. provider: Indra Metcalf MD Assoc. diagnoses: Elevated sed rate, Elevated C-reactive protein (CRP) VITAMIN D 25 HYDROXY [SQVITD] 03/21/21 12/19/21 12/19/20 Auth. provider: Indra Metcalf MD Assoc. diagnoses: Vitamin D deficiency documented in this encounter [facility] 10-20-2021 Miscellaneous Notes Confirmation received. Pt aware orders were faxed. Fax number placed on orders for them to have results faxed to us once completed. Also fax number given to patient too. Carolyne Woods MA Faxed. Waiting on confirmation. Carolyne Woods MA Patient returning call. The fax number to [facility] is: [phone]. 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 Please and thank you. Patient calling in to check on prescription - Given message below and will call back with fax number to local lab Not seen since 2020. Please schedule nonfasting labs for medication refills.. Otherwise, please defer medication refills to current provider Thank you. 12/16/20- Last ov 11/17/21- next ov Patient has been identified by name and date of : Yes Pending Prescriptions Disp Refills METHOTREXATE SODIUM 2.5 MG TABLET 40 tablet 5 Sig: TAKE EIGHT TABLETS BY MOUTH WITH FOOD ONCE A WEEK. HOLD IF ON ANTIBIOTICS AND IF RECEIVING VACCINES DEMARIO: No RX INSTRUCTIONS: Patient aware RX will be sent to pharmacy. No need to notify patient. Carolyne Woods MA documented in this encounter [facility] Inflammatory arthritis Unspecified inflammatory polyarthropathy [facility] Diagnosis Inflammatory arthritis Unspecified inflammatory polyarthropathy [facility] Diagnosis Inflammatory arthritis- Primary Unspecified inflammatory polyarthropathy Postmenopausal osteoporosis of multiple sites Long-term use of Plaquenil Encounter for long-term (current) use of other medications Cyclic citrullinated peptide (CCP) antibody positive Secondary osteoarthritis of multiple sites Osteoarthrosis involving, or with mention of more than one site, but not specified as generalized, multiple sites Bilateral hand pain Pain in limb Chronic bilateral low back pain with bilateral sciatica Cervicalgia Cervical stenosis of spine Spinal stenosis in cervical region Long-term use of high-risk medication ZEV positive Other and unspecified nonspecific immunological findings Chronic pain of both knees Joint stiffness of multiple sites Stiffness of joints, not elsewhere classified, multiple sites Personal history of (healed) other pathological fracture Vitamin D deficiency Unspecified vitamin D deficiency [facility] Diagnosis Inflammatory arthritis- Primary Unspecified inflammatory polyarthropathy Elevated LFTs Other abnormal blood chemistry Anemia of chronic disease Anemia of other chronic disease Elevated sed rate Elevated sedimentation rate Elevated C-reactive protein (CRP) Vitamin D deficiency Unspecified vitamin D deficiency [facility] Diagnosis Postmenopausal osteoporosis of multiple sites- Primary Vitamin D deficiency Unspecified vitamin D deficiency [facility] Diagnosis Inflammatory arthritis Unspecified inflammatory polyarthropathy [facility] Diagnosis Rheumatoid arthritis of multiple sites without rheumatoid factor (HCC)- Primary Rheumatoid arthritis Inflammatory arthritis Unspecified inflammatory polyarthropathy Postmenopausal osteoporosis of multiple sites Chronic congestive heart failure, unspecified heart failure type (HCC) Bilateral hand pain Pain in limb Secondary osteoarthritis of multiple sites Osteoarthrosis involving, or with mention of more than one site, but not specified as generalized, multiple sites Cyclic citrullinated peptide (CCP) antibody positive Long-term use of Plaquenil Encounter for long-term (current) use of other medications Chronic bilateral low back pain with bilateral sciatica Cervical stenosis of spine Spinal stenosis in cervical region Long-term use of high-risk medication ZEV positive Other and unspecified nonspecific immunological findings Chronic pain of both knees Joint stiffness of multiple sites Stiffness of joints, not elsewhere classified, multiple sites Personal history of (healed) other pathological fracture Chronic pain of both shoulders Pain in joint, shoulder region Chronic hip pain, bilateral [facility] Name Dates Details Patient Instructions Indication:Non-smoker Start:04-Sep-2020 Instruction Type:Provider Instructions for Treatment How to Access Health Informa tion Online using Patient Portal and [employer] Apps Indication:Non-smoker Start:04-Sep-2020 Instruction Type:Patient Education How to access health informa tion online Indication:Non-smoker Start:05-May-2020 Instruction Type:Patient Education How to access health informa tion online - Detail Indication:Non-smoker Start:05-May-2020 Instruction Type:Patient Education Patient Instructions Indication:Non-smoker Start:05-May-2020 Instruction Type:Provider Instructions for Treatment How to access health informa tion online Indication:Non-smoker Start:22-Apr-2020 Instruction Type:Patient Education How to access health informa tion online - Detail Indication:Non-smoker Start:22-Apr-2020 Instruction Type:Patient Education Patient Instructions Indication:Non-smoker Start:22-Apr-2020 Instruction Type:Provider Instructions for Treatment How to access health informa tion online Indication:Urinary frequency Start:27-Feb-2020 Instruction Type:Patient Education How to access health informa tion online - Detail Indication:Urinary frequency Start:27-Feb-2020 Instruction Type:Patient Education Patient Instructions Indication:Urinary frequency Start:27-Feb-2020 Instruction Type:Provider Instructions for Treatment How to access health informa tion online Indication:Non-smoker Start:15-Feb-2020 Instruction Type:Patient Education How to access health informa tion online - Detail Indication:Non-smoker Start:15-Feb-2020 Instruction Type:Patient Education Patient Instructions Indication:Non-smoker Start:15-Feb-2020 Instruction Type:Provider Instructions for Treatment obesity counseling Indication:Hypertension Start:03-Dec-2019 Instruction Type:Provider Instructions for Treatment How to access health informa tion online Indication:BMI 45.0-49.9, adult Start:14-Nov-2019 Instruction Type:Patient Education How to access health informa tion online - Detail Indication:BMI 45.0-49.9, adult Start:14-Nov-2019 Instruction Type:Patient Education Patient Instructions Indication:BMI 45.0-49.9, adult Start:14-Nov-2019 Instruction Type:Provider Instructions for Treatment How to access health informa tion online Indication:Non-smoker Start:01-Nov-2019 Instruction Type:Patient Education How to access health informa tion online - Detail Indication:Non-smoker Start:01-Nov-2019 Instruction Type:Patient Education Patient Instructions Indication:Non-smoker Start:01-Nov-2019 Instruction Type:Provider Instructions for Treatment How to access health informa tion online Indication:Nonsmoker Start:15-Oct-2019 Instruction Type:Patient Education How to access health informa tion online - Detail Indication:Nonsmoker Start:15-Oct-2019 Instruction Type:Patient Education Patient Instructions Indication:Nonsmoker Start:15-Oct-2019 Instruction Type:Provider Instructions for Treatment How to access health informa tion online - Detail Indication:BMI 50.0-59.9, adult Start:02-Apr-2019 Instruction Type:Patient Education How to access health informa tion online Indication:BMI 50.0-59.9, adult Start:02-Apr-2019 Instruction Type:Patient Education Patient Instructions Indication:BMI 50.0-59.9, adult Start:02-Apr-2019 Instruction Type:Provider Instructions for Treatment How to access health informa tion online Indication:BMI 50.0-59.9, adult Start:15-Feb-2019 Instruction Type:Patient Education How to access health informa tion online - Detail Indication:BMI 50.0-59.9, adult Start:15-Feb-2019 Instruction Type:Patient Education Patient Instructions Indication:BMI 50.0-59.9, adult Start:15-Feb-2019 Instruction Type:Provider Instructions for Treatment How to access health informa tion online Indication:Nonsmoker Start:09-Feb-2019 Instruction Type:Patient Education How to access health informa tion online - Detail Indication:Nonsmoker Start:09-Feb-2019 Instruction Type:Patient Education Patient Instructions Indication:Nonsmoker Start:09-Feb-2019 Instruction Type:Provider Instructions for Treatment How to access health informa tion online Indication:BMI 50.0-59.9, adult Start:22-Jan-2019 Instruction Type:Patient Education How to access health informa tion online - Detail Indication:BMI 50.0-59.9, adult Start:22-Jan-2019 Instruction Type:Patient Education Patient Instructions Indication:BMI 50.0-59.9, adult Start:22-Jan-2019 Instruction Type:Provider Instructions for Treatment How to access health informa tion online Indication:Nonsmoker Start:05-Oct-2018 Instruction Type:Patient Education How to access health informa tion online - Detail Indication:Nonsmoker Start:05-Oct-2018 Instruction Type:Patient Education Patient Instructions Indication:Nonsmoker Start:05-Oct-2018 Instruction Type:Provider Instructions for Treatment How to access health informa tion online Indication:BMI 50.0-59.9, adult Start:13-Jan-2018 Instruction Type:Patient Education How to access health informa tion online - Detail Indication:BMI 50.0-59.9, adult Start:13-Jan-2018 Instruction Type:Patient Education Patient Instructions Indication:BMI 50.0-59.9, adult Start:13-Jan-2018 Instruction Type:Provider Instructions for Treatment How to access health informa tion online Indication:Nonsmoker Start:06-Jan-2018 Instruction Type:Patient Education How to access health informa tion online - Detail Indication:Nonsmoker Start:06-Jan-2018 Instruction Type:Patient Education Patient Instructions Indication:Nonsmoker Start:06-Jan-2018 Instruction Type:Provider Instructions for Treatment [facility]; [facility] Work Phone: Instructions* Name Dates Details Patient Instructions Indication:BMI 45.0-49.9, adult Start:25-May-2021 Instruction Type:Provider Instructions for Treatment How to Access Health Informa tion Online using Patient Portal and [employer] Indication:BMI 45.0-49.9, adult Start:25-May-2021 Instruction Type:Patient Education Patient Instructions Indication:Obesity, morbid (more than 100 lbs over ideal weight or BMI > 40) Start:18-Mar-2021 Instruction Type:Provider Instructions for Treatment How to Access Health Informa tion Online using Patient Portal and [employer] Indication:Obesity, morbid (more than 100 lbs over ideal weight or BMI > 40) Start:18-Mar-2021 Instruction Type:Patient Education Patient Instructions Indication:Non-smoker Start:25-Feb-2021 Instruction Type:Provider Instructions for Treatment How to Access Health Informa tion Online using Patient Portal and [employer] Indication:Non-smoker Start:25-Feb-2021 Instruction Type:Patient Education obesity counseling Indication:LUIZA (obstructive sleep apnea) Start:12-Dec-2020 Instruction Type:Provider Instructions for Treatment Patient Instructions Indication:BMI 50.0-59.9, adult Start:12-Dec-2020 Instruction Type:Provider Instructions for Treatment How to Access Health Informa tion Online using Patient Portal and [employer] Indication:BMI 50.0-59.9, adult Start:12-Dec-2020 Instruction Type:Patient Education Patient Instructions Indication:Non-smoker Start:04-Sep-2020 Instruction Type:Provider Instructions for Treatment How to Access Health Informa tion Online using Patient Portal and [employer] Indication:Non-smoker Start:04-Sep-2020 Instruction Type:Patient Education How to access health informa tion online Indication:Non-smoker Start:05-May-2020 Instruction Type:Patient Education How to access health informa tion online - Detail Indication:Non-smoker Start:05-May-2020 Instruction Type:Patient Education Patient Instructions Indication:Non-smoker Start:05-May-2020 Instruction Type:Provider Instructions for Treatment How to access health informa tion online Indication:Non-smoker Start:22-Apr-2020 Instruction Type:Patient Education How to access health informa tion online - Detail Indication:Non-smoker Start:22-Apr-2020 Instruction Type:Patient Education Patient Instructions Indication:Non-smoker Start:22-Apr-2020 Instruction Type:Provider Instructions for Treatment How to access health informa tion online Indication:Urinary frequency Start:27-Feb-2020 Instruction Type:Patient Education How to access health informa tion online - Detail Indication:Urinary frequency Start:27-Feb-2020 Instruction Type:Patient Education Patient Instructions Indication:Urinary frequency Start:27-Feb-2020 Instruction Type:Provider Instructions for Treatment How to access health informa tion online Indication:Non-smoker Start:15-Feb-2020 Instruction Type:Patient Education How to access health informa tion online - Detail Indication:Non-smoker Start:15-Feb-2020 Instruction Type:Patient Education Patient Instructions Indication:Non-smoker Start:15-Feb-2020 Instruction Type:Provider Instructions for Treatment obesity counseling Indication:Hypertension Start:03-Dec-2019 Instruction Type:Provider Instructions for Treatment How to access health informa tion online Indication:BMI 45.0-49.9, adult Start:14-Nov-2019 Instruction Type:Patient Education How to access health informa tion online - Detail Indication:BMI 45.0-49.9, adult Start:14-Nov-2019 Instruction Type:Patient Education Patient Instructions Indication:BMI 45.0-49.9, adult Start:14-Nov-2019 Instruction Type:Provider Instructions for Treatment How to access health informa tion online Indication:Non-smoker Start:01-Nov-2019 Instruction Type:Patient Education How to access health informa tion online - Detail Indication:Non-smoker Start:01-Nov-2019 Instruction Type:Patient Education Patient Instructions Indication:Non-smoker Start:01-Nov-2019 Instruction Type:Provider Instructions for Treatment How to access health informa tion online Indication:Nonsmoker Start:15-Oct-2019 Instruction Type:Patient Education How to access health informa tion online - Detail Indication:Nonsmoker Start:15-Oct-2019 Instruction Type:Patient Education Patient Instructions Indication:Nonsmoker Start:15-Oct-2019 Instruction Type:Provider Instructions for Treatment How to access health informa tion online - Detail Indication:BMI 50.0-59.9, adult Start:02-Apr-2019 Instruction Type:Patient Education How to access health informa tion online Indication:BMI 50.0-59.9, adult Start:02-Apr-2019 Instruction Type:Patient Education Patient Instructions Indication:BMI 50.0-59.9, adult Start:02-Apr-2019 Instruction Type:Provider Instructions for Treatment How to access health informa tion online Indication:BMI 50.0-59.9, adult Start:15-Feb-2019 Instruction Type:Patient Education How to access health informa tion online - Detail Indication:BMI 50.0-59.9, adult Start:15-Feb-2019 Instruction Type:Patient Education Patient Instructions Indication:BMI 50.0-59.9, adult Start:15-Feb-2019 Instruction Type:Provider Instructions for Treatment How to access health informa tion online Indication:Nonsmoker Start:09-Feb-2019 Instruction Type:Patient Education How to access health informa tion online - Detail Indication:Nonsmoker Start:09-Feb-2019 Instruction Type:Patient Education Patient Instructions Indication:Nonsmoker Start:09-Feb-2019 Instruction Type:Provider Instructions for Treatment How to access health informa tion online Indication:BMI 50.0-59.9, adult Start:22-Jan-2019 Instruction Type:Patient Education How to access health informa tion online - Detail Indication:BMI 50.0-59.9, adult Start:22-Jan-2019 Instruction Type:Patient Education Patient Instructions Indication:BMI 50.0-59.9, adult Start:22-Jan-2019 Instruction Type:Provider Instructions for Treatment How to access health informa tion online Indication:Nonsmoker Start:05-Oct-2018 Instruction Type:Patient Education How to access health informa tion online - Detail Indication:Nonsmoker Start:05-Oct-2018 Instruction Type:Patient Education Patient Instructions Indication:Nonsmoker Start:05-Oct-2018 Instruction Type:Provider Instructions for Treatment How to access health informa tion online Indication:BMI 50.0-59.9, adult Start:13-Jan-2018 Instruction Type:Patient Education How to access health informa tion online - Detail Indication:BMI 50.0-59.9, adult Start:13-Jan-2018 Instruction Type:Patient Education Patient Instructions Indication:BMI 50.0-59.9, adult Start:13-Jan-2018 Instruction Type:Provider Instructions for Treatment How to access health informa tion online Indication:Nonsmoker Start:06-Jan-2018 Instruction Type:Patient Education How to access health informa tion online - Detail Indication:Nonsmoker Start:06-Jan-2018 Instruction Type:Patient Education Patient Instructions Indication:Nonsmoker Start:06-Jan-2018 Instruction Type:Provider Instructions for Treatment [facility]; [facility] Work Phone: Instructions* Name Dates Details Patient Instructions Indication:BMI 45.0-49.9, adult Start:25-May-2021 Instruction Type:Provider Instructions for Treatment How to Access Health Informa tion Online using Patient Portal and [employer] Indication:BMI 45.0-49.9, adult Start:25-May-2021 Instruction Type:Patient Education Patient Instructions Indication:Obesity, morbid (more than 100 lbs over ideal weight or BMI > 40) Start:18-Mar-2021 Instruction Type:Provider Instructions for Treatment How to Access Health Informa tion Online using Patient Portal and [employer] Apps Indication:Obesity, morbid (more than 100 lbs over ideal weight or BMI > 40) Start:18-Mar-2021 Instruction Type:Patient Education Patient Instructions Indication:Non-smoker Start:25-Feb-2021 Instruction Type:Provider Instructions for Treatment How to Access Health Informa tion Online using Patient Portal and [employer] Indication:Non-smoker Start:25-Feb-2021 Instruction Type:Patient Education obesity counseling Indication:LUIZA (obstructive sleep apnea) Start:12-Dec-2020 Instruction Type:Provider Instructions for Treatment Patient Instructions Indication:BMI 50.0-59.9, adult Start:12-Dec-2020 Instruction Type:Provider Instructions for Treatment How to Access Health Informa tion Online using Patient Portal and [employer] Indication:BMI 50.0-59.9, adult Start:12-Dec-2020 Instruction Type:Patient Education Patient Instructions Indication:Non-smoker Start:04-Sep-2020 Instruction Type:Provider Instructions for Treatment How to Access Health Informa tion Online using Patient Portal and [employer] Indication:Non-smoker Start:04-Sep-2020 Instruction Type:Patient Education How to access health informa tion online Indication:Non-smoker Start:05-May-2020 Instruction Type:Patient Education How to access health informa tion online - Detail Indication:Non-smoker Start:05-May-2020 Instruction Type:Patient Education Patient Instructions Indication:Non-smoker Start:05-May-2020 Instruction Type:Provider Instructions for Treatment How to access health informa tion online Indication:Non-smoker Start:22-Apr-2020 Instruction Type:Patient Education How to access health informa tion online - Detail Indication:Non-smoker Start:22-Apr-2020 Instruction Type:Patient Education Patient Instructions Indication:Non-smoker Start:22-Apr-2020 Instruction Type:Provider Instructions for Treatment How to access health informa tion online Indication:Urinary frequency Start:27-Feb-2020 Instruction Type:Patient Education How to access health informa tion online - Detail Indication:Urinary frequency Start:27-Feb-2020 Instruction Type:Patient Education Patient Instructions Indication:Urinary frequency Start:27-Feb-2020 Instruction Type:Provider Instructions for Treatment How to access health informa tion online Indication:Non-smoker Start:15-Feb-2020 Instruction Type:Patient Education How to access health informa tion online - Detail Indication:Non-smoker Start:15-Feb-2020 Instruction Type:Patient Education Patient Instructions Indication:Non-smoker Start:15-Feb-2020 Instruction Type:Provider Instructions for Treatment obesity counseling Indication:Hypertension Start:03-Dec-2019 Instruction Type:Provider Instructions for Treatment How to access health informa tion online Indication:BMI 45.0-49.9, adult Start:14-Nov-2019 Instruction Type:Patient Education How to access health informa tion online - Detail Indication:BMI 45.0-49.9, adult Start:14-Nov-2019 Instruction Type:Patient Education Patient Instructions Indication:BMI 45.0-49.9, adult Start:14-Nov-2019 Instruction Type:Provider Instructions for Treatment How to access health informa tion online Indication:Non-smoker Start:01-Nov-2019 Instruction Type:Patient Education How to access health informa tion online - Detail Indication:Non-smoker Start:01-Nov-2019 Instruction Type:Patient Education Patient Instructions Indication:Non-smoker Start:01-Nov-2019 Instruction Type:Provider Instructions for Treatment How to access health informa tion online Indication:Nonsmoker Start:15-Oct-2019 Instruction Type:Patient Education How to access health informa tion online - Detail Indication:Nonsmoker Start:15-Oct-2019 Instruction Type:Patient Education Patient Instructions Indication:Nonsmoker Start:15-Oct-2019 Instruction Type:Provider Instructions for Treatment How to access health informa tion online - Detail Indication:BMI 50.0-59.9, adult Start:02-Apr-2019 Instruction Type:Patient Education How to access health informa tion online Indication:BMI 50.0-59.9, adult Start:02-Apr-2019 Instruction Type:Patient Education Patient Instructions Indication:BMI 50.0-59.9, adult Start:02-Apr-2019 Instruction Type:Provider Instructions for Treatment How to access health informa tion online Indication:BMI 50.0-59.9, adult Start:15-Feb-2019 Instruction Type:Patient Education How to access health informa tion online - Detail Indication:BMI 50.0-59.9, adult Start:15-Feb-2019 Instruction Type:Patient Education Patient Instructions Indication:BMI 50.0-59.9, adult Start:15-Feb-2019 Instruction Type:Provider Instructions for Treatment How to access health informa tion online Indication:Nonsmoker Start:09-Feb-2019 Instruction Type:Patient Education How to access health informa tion online - Detail Indication:Nonsmoker Start:09-Feb-2019 Instruction Type:Patient Education Patient Instructions Indication:Nonsmoker Start:09-Feb-2019 Instruction Type:Provider Instructions for Treatment How to access health informa tion online Indication:BMI 50.0-59.9, adult Start:22-Jan-2019 Instruction Type:Patient Education How to access health informa tion online - Detail Indication:BMI 50.0-59.9, adult Start:22-Jan-2019 Instruction Type:Patient Education Patient Instructions Indication:BMI 50.0-59.9, adult Start:22-Jan-2019 Instruction Type:Provider Instructions for Treatment How to access health informa tion online Indication:Nonsmoker Start:05-Oct-2018 Instruction Type:Patient Education How to access health informa tion online - Detail Indication:Nonsmoker Start:05-Oct-2018 Instruction Type:Patient Education Patient Instructions Indication:Nonsmoker Start:05-Oct-2018 Instruction Type:Provider Instructions for Treatment How to access health informa tion online Indication:BMI 50.0-59.9, adult Start:13-Jan-2018 Instruction Type:Patient Education How to access health informa tion online - Detail Indication:BMI 50.0-59.9, adult Start:13-Jan-2018 Instruction Type:Patient Education Patient Instructions Indication:BMI 50.0-59.9, adult Start:13-Jan-2018 Instruction Type:Provider Instructions for Treatment How to access health informa tion online Indication:Nonsmoker Start:06-Jan-2018 Instruction Type:Patient Education How to access health informa tion online - Detail Indication:Nonsmoker Start:06-Jan-2018 Instruction Type:Patient Education Patient Instructions Indication:Nonsmoker Start:06-Jan-2018 Instruction Type:Provider Instructions for Treatment [facility]; [facility] Work Phone: Instructions* Name Dates Details Patient Instructions Indication:Non-smoker Start:13-Jul-2021 Instruction Type:Provider Instructions for Treatment How to Access Health Informa tion Online using Patient Portal and [employer] Indication:Non-smoker Start:13-Jul-2021 Instruction Type:Patient Education Patient Instructions Indication:BMI 45.0-49.9, adult Start:25-May-2021 Instruction Type:Provider Instructions for Treatment How to Access Health Informa tion Online using Patient Portal and [employer] Indication:BMI 45.0-49.9, adult Start:25-May-2021 Instruction Type:Patient Education Patient Instructions Indication:Obesity, morbid (more than 100 lbs over ideal weight or BMI > 40) Start:18-Mar-2021 Instruction Type:Provider Instructions for Treatment How to Access Health Informa tion Online using Patient Portal and [employer] Indication:Obesity, morbid (more than 100 lbs over ideal weight or BMI > 40) Start:18-Mar-2021 Instruction Type:Patient Education Patient Instructions Indication:Non-smoker Start:25-Feb-2021 Instruction Type:Provider Instructions for Treatment How to Access Health Informa tion Online using Patient Portal and [employer] Indication:Non-smoker Start:25-Feb-2021 Instruction Type:Patient Education obesity counseling Indication:LUIZA (obstructive sleep apnea) Start:12-Dec-2020 Instruction Type:Provider Instructions for Treatment Patient Instructions Indication:BMI 50.0-59.9, adult Start:12-Dec-2020 Instruction Type:Provider Instructions for Treatment How to Access Health Informa tion Online using Patient Portal and [employer] Indication:BMI 50.0-59.9, adult Start:12-Dec-2020 Instruction Type:Patient Education Patient Instructions Indication:Non-smoker Start:04-Sep-2020 Instruction Type:Provider Instructions for Treatment How to Access Health Informa tion Online using Patient Portal and [employer] Indication:Non-smoker Start:04-Sep-2020 Instruction Type:Patient Education How to access health informa tion online Indication:Non-smoker Start:05-May-2020 Instruction Type:Patient Education How to access health informa tion online - Detail Indication:Non-smoker Start:05-May-2020 Instruction Type:Patient Education Patient Instructions Indication:Non-smoker Start:05-May-2020 Instruction Type:Provider Instructions for Treatment How to access health informa tion online Indication:Non-smoker Start:22-Apr-2020 Instruction Type:Patient Education How to access health informa tion online - Detail Indication:Non-smoker Start:22-Apr-2020 Instruction Type:Patient Education Patient Instructions Indication:Non-smoker Start:22-Apr-2020 Instruction Type:Provider Instructions for Treatment How to access health informa tion online Indication:Urinary frequency Start:27-Feb-2020 Instruction Type:Patient Education How to access health informa tion online - Detail Indication:Urinary frequency Start:27-Feb-2020 Instruction Type:Patient Education Patient Instructions Indication:Urinary frequency Start:27-Feb-2020 Instruction Type:Provider Instructions for Treatment How to access health informa tion online Indication:Non-smoker Start:15-Feb-2020 Instruction Type:Patient Education How to access health informa tion online - Detail Indication:Non-smoker Start:15-Feb-2020 Instruction Type:Patient Education Patient Instructions Indication:Non-smoker Start:15-Feb-2020 Instruction Type:Provider Instructions for Treatment obesity counseling Indication:Hypertension Start:03-Dec-2019 Instruction Type:Provider Instructions for Treatment How to access health informa tion online Indication:BMI 45.0-49.9, adult Start:14-Nov-2019 Instruction Type:Patient Education How to access health informa tion online - Detail Indication:BMI 45.0-49.9, adult Start:14-Nov-2019 Instruction Type:Patient Education Patient Instructions Indication:BMI 45.0-49.9, adult Start:14-Nov-2019 Instruction Type:Provider Instructions for Treatment How to access health informa tion online Indication:Non-smoker Start:01-Nov-2019 Instruction Type:Patient Education How to access health informa tion online - Detail Indication:Non-smoker Start:01-Nov-2019 Instruction Type:Patient Education Patient Instructions Indication:Non-smoker Start:01-Nov-2019 Instruction Type:Provider Instructions for Treatment How to access health informa tion online Indication:Nonsmoker Start:15-Oct-2019 Instruction Type:Patient Education How to access health informa tion online - Detail Indication:Nonsmoker Start:15-Oct-2019 Instruction Type:Patient Education Patient Instructions Indication:Nonsmoker Start:15-Oct-2019 Instruction Type:Provider Instructions for Treatment How to access health informa tion online - Detail Indication:BMI 50.0-59.9, adult Start:02-Apr-2019 Instruction Type:Patient Education How to access health informa tion online Indication:BMI 50.0-59.9, adult Start:02-Apr-2019 Instruction Type:Patient Education Patient Instructions Indication:BMI 50.0-59.9, adult Start:02-Apr-2019 Instruction Type:Provider Instructions for Treatment How to access health informa tion online Indication:BMI 50.0-59.9, adult Start:15-Feb-2019 Instruction Type:Patient Education How to access health informa tion online - Detail Indication:BMI 50.0-59.9, adult Start:15-Feb-2019 Instruction Type:Patient Education Patient Instructions Indication:BMI 50.0-59.9, adult Start:15-Feb-2019 Instruction Type:Provider Instructions for Treatment How to access health informa tion online Indication:Nonsmoker Start:09-Feb-2019 Instruction Type:Patient Education How to access health informa tion online - Detail Indication:Nonsmoker Start:09-Feb-2019 Instruction Type:Patient Education Patient Instructions Indication:Nonsmoker Start:09-Feb-2019 Instruction Type:Provider Instructions for Treatment How to access health informa tion online Indication:BMI 50.0-59.9, adult Start:22-Jan-2019 Instruction Type:Patient Education How to access health informa tion online - Detail Indication:BMI 50.0-59.9, adult Start:22-Jan-2019 Instruction Type:Patient Education Patient Instructions Indication:BMI 50.0-59.9, adult Start:22-Jan-2019 Instruction Type:Provider Instructions for Treatment How to access health informa tion online Indication:Nonsmoker Start:05-Oct-2018 Instruction Type:Patient Education How to access health informa tion online - Detail Indication:Nonsmoker Start:05-Oct-2018 Instruction Type:Patient Education Patient Instructions Indication:Nonsmoker Start:05-Oct-2018 Instruction Type:Provider Instructions for Treatment How to access health informa tion online Indication:BMI 50.0-59.9, adult Start:13-Jan-2018 Instruction Type:Patient Education How to access health informa tion online - Detail Indication:BMI 50.0-59.9, adult Start:13-Jan-2018 Instruction Type:Patient Education Patient Instructions Indication:BMI 50.0-59.9, adult Start:13-Jan-2018 Instruction Type:Provider Instructions for Treatment How to access health informa tion online Indication:Nonsmoker Start:06-Jan-2018 Instruction Type:Patient Education How to access health informa tion online - Detail Indication:Nonsmoker Start:06-Jan-2018 Instruction Type:Patient Education Patient Instructions Indication:Nonsmoker Start:06-Jan-2018 Instruction Type:Provider Instructions for Treatment [facility]; [facility] Work Phone: Instructions* Name Dates Details Patient Instructions Indication:Non-smoker Start:13-Jul-2021 Instruction Type:Provider Instructions for Treatment How to Access Health Informa tion Online using Patient Portal and [employer] Indication:Non-smoker Start:13-Jul-2021 Instruction Type:Patient Education Patient Instructions Indication:BMI 45.0-49.9, adult Start:25-May-2021 Instruction Type:Provider Instructions for Treatment How to Access Health Informa tion Online using Patient Portal and [employer] Indication:BMI 45.0-49.9, adult Start:25-May-2021 Instruction Type:Patient Education Patient Instructions Indication:Obesity, morbid (more than 100 lbs over ideal weight or BMI > 40) Start:18-Mar-2021 Instruction Type:Provider Instructions for Treatment How to Access Health Informa tion Online using Patient Portal and [employer] Indication:Obesity, morbid (more than 100 lbs over ideal weight or BMI > 40) Start:18-Mar-2021 Instruction Type:Patient Education Patient Instructions Indication:Non-smoker Start:25-Feb-2021 Instruction Type:Provider Instructions for Treatment How to Access Health Informa tion Online using Patient Portal and [employer] Indication:Non-smoker Start:25-Feb-2021 Instruction Type:Patient Education obesity counseling Indication:LUIZA (obstructive sleep apnea) Start:12-Dec-2020 Instruction Type:Provider Instructions for Treatment Patient Instructions Indication:BMI 50.0-59.9, adult Start:12-Dec-2020 Instruction Type:Provider Instructions for Treatment How to Access Health Informa tion Online using Patient Portal and [employer] Indication:BMI 50.0-59.9, adult Start:12-Dec-2020 Instruction Type:Patient Education Patient Instructions Indication:Non-smoker Start:04-Sep-2020 Instruction Type:Provider Instructions for Treatment How to Access Health Informa tion Online using Patient Portal and [employer] Indication:Non-smoker Start:04-Sep-2020 Instruction Type:Patient Education How to access health informa tion online Indication:Non-smoker Start:05-May-2020 Instruction Type:Patient Education How to access health informa tion online - Detail Indication:Non-smoker Start:05-May-2020 Instruction Type:Patient Education Patient Instructions Indication:Non-smoker Start:05-May-2020 Instruction Type:Provider Instructions for Treatment How to access health informa tion online Indication:Non-smoker Start:22-Apr-2020 Instruction Type:Patient Education How to access health informa tion online - Detail Indication:Non-smoker Start:22-Apr-2020 Instruction Type:Patient Education Patient Instructions Indication:Non-smoker Start:22-Apr-2020 Instruction Type:Provider Instructions for Treatment How to access health informa tion online Indication:Urinary frequency Start:27-Feb-2020 Instruction Type:Patient Education How to access health informa tion online - Detail Indication:Urinary frequency Start:27-Feb-2020 Instruction Type:Patient Education Patient Instructions Indication:Urinary frequency Start:27-Feb-2020 Instruction Type:Provider Instructions for Treatment How to access health informa tion online Indication:Non-smoker Start:15-Feb-2020 Instruction Type:Patient Education How to access health informa tion online - Detail Indication:Non-smoker Start:15-Feb-2020 Instruction Type:Patient Education Patient Instructions Indication:Non-smoker Start:15-Feb-2020 Instruction Type:Provider Instructions for Treatment obesity counseling Indication:Hypertension Start:03-Dec-2019 Instruction Type:Provider Instructions for Treatment How to access health informa tion online Indication:BMI 45.0-49.9, adult Start:14-Nov-2019 Instruction Type:Patient Education How to access health informa tion online - Detail Indication:BMI 45.0-49.9, adult Start:14-Nov-2019 Instruction Type:Patient Education Patient Instructions Indication:BMI 45.0-49.9, adult Start:14-Nov-2019 Instruction Type:Provider Instructions for Treatment How to access health informa tion online Indication:Non-smoker Start:01-Nov-2019 Instruction Type:Patient Education How to access health informa tion online - Detail Indication:Non-smoker Start:01-Nov-2019 Instruction Type:Patient Education Patient Instructions Indication:Non-smoker Start:01-Nov-2019 Instruction Type:Provider Instructions for Treatment How to access health informa tion online Indication:Nonsmoker Start:15-Oct-2019 Instruction Type:Patient Education How to access health informa tion online - Detail Indication:Nonsmoker Start:15-Oct-2019 Instruction Type:Patient Education Patient Instructions Indication:Nonsmoker Start:15-Oct-2019 Instruction Type:Provider Instructions for Treatment How to access health informa tion online - Detail Indication:BMI 50.0-59.9, adult Start:02-Apr-2019 Instruction Type:Patient Education How to access health informa tion online Indication:BMI 50.0-59.9, adult Start:02-Apr-2019 Instruction Type:Patient Education Patient Instructions Indication:BMI 50.0-59.9, adult Start:02-Apr-2019 Instruction Type:Provider Instructions for Treatment How to access health informa tion online Indication:BMI 50.0-59.9, adult Start:15-Feb-2019 Instruction Type:Patient Education How to access health informa tion online - Detail Indication:BMI 50.0-59.9, adult Start:15-Feb-2019 Instruction Type:Patient Education Patient Instructions Indication:BMI 50.0-59.9, adult Start:15-Feb-2019 Instruction Type:Provider Instructions for Treatment How to access health informa tion online Indication:Nonsmoker Start:09-Feb-2019 Instruction Type:Patient Education How to access health informa tion online - Detail Indication:Nonsmoker Start:09-Feb-2019 Instruction Type:Patient Education Patient Instructions Indication:Nonsmoker Start:09-Feb-2019 Instruction Type:Provider Instructions for Treatment How to access health informa tion online Indication:BMI 50.0-59.9, adult Start:22-Jan-2019 Instruction Type:Patient Education How to access health informa tion online - Detail Indication:BMI 50.0-59.9, adult Start:22-Jan-2019 Instruction Type:Patient Education Patient Instructions Indication:BMI 50.0-59.9, adult Start:22-Jan-2019 Instruction Type:Provider Instructions for Treatment How to access health informa tion online Indication:Nonsmoker Start:05-Oct-2018 Instruction Type:Patient Education How to access health informa tion online - Detail Indication:Nonsmoker Start:05-Oct-2018 Instruction Type:Patient Education Patient Instructions Indication:Nonsmoker Start:05-Oct-2018 Instruction Type:Provider Instructions for Treatment How to access health informa tion online Indication:BMI 50.0-59.9, adult Start:13-Jan-2018 Instruction Type:Patient Education How to access health informa tion online - Detail Indication:BMI 50.0-59.9, adult Start:13-Jan-2018 Instruction Type:Patient Education Patient Instructions Indication:BMI 50.0-59.9, adult Start:13-Jan-2018 Instruction Type:Provider Instructions for Treatment How to access health informa tion online Indication:Nonsmoker Start:06-Jan-2018 Instruction Type:Patient Education How to access health informa tion online - Detail Indication:Nonsmoker Start:06-Jan-2018 Instruction Type:Patient Education Patient Instructions Indication:Nonsmoker Start:06-Jan-2018 Instruction Type:Provider Instructions for Treatment [facility]; [facility] Work Phone: Instructions* Name Dates Details Patient Instructions Indication:Hypothyroid Start:19-Jul-2021 Instruction Type:Provider Instructions for Treatment Patient Instructions Indication:Non-smoker Start:13-Jul-2021 Instruction Type:Provider Instructions for Treatment How to Access Health Informa tion Online using Patient Portal and [employer] Indication:Non-smoker Start:13-Jul-2021 Instruction Type:Patient Education Patient Instructions Indication:BMI 45.0-49.9, adult Start:25-May-2021 Instruction Type:Provider Instructions for Treatment How to Access Health Informa tion Online using Patient Portal and [employer] Indication:BMI 45.0-49.9, adult Start:25-May-2021 Instruction Type:Patient Education Patient Instructions Indication:Obesity, morbid (more than 100 lbs over ideal weight or BMI > 40) Start:18-Mar-2021 Instruction Type:Provider Instructions for Treatment How to Access Health Informa tion Online using Patient Portal and [employer] Indication:Obesity, morbid (more than 100 lbs over ideal weight or BMI > 40) Start:18-Mar-2021 Instruction Type:Patient Education Patient Instructions Indication:Non-smoker Start:25-Feb-2021 Instruction Type:Provider Instructions for Treatment How to Access Health Informa tion Online using Patient Portal and [employer] Indication:Non-smoker Start:25-Feb-2021 Instruction Type:Patient Education obesity counseling Indication:LUIZA (obstructive sleep apnea) Start:12-Dec-2020 Instruction Type:Provider Instructions for Treatment Patient Instructions Indication:BMI 50.0-59.9, adult Start:12-Dec-2020 Instruction Type:Provider Instructions for Treatment How to Access Health Informa tion Online using Patient Portal and [employer] Indication:BMI 50.0-59.9, adult Start:12-Dec-2020 Instruction Type:Patient Education Patient Instructions Indication:Non-smoker Start:04-Sep-2020 Instruction Type:Provider Instructions for Treatment How to Access Health Informa tion Online using Patient Portal and [employer] Indication:Non-smoker Start:04-Sep-2020 Instruction Type:Patient Education How to access health informa tion online Indication:Non-smoker Start:05-May-2020 Instruction Type:Patient Education How to access health informa tion online - Detail Indication:Non-smoker Start:05-May-2020 Instruction Type:Patient Education Patient Instructions Indication:Non-smoker Start:05-May-2020 Instruction Type:Provider Instructions for Treatment How to access health informa tion online Indication:Non-smoker Start:22-Apr-2020 Instruction Type:Patient Education How to access health informa tion online - Detail Indication:Non-smoker Start:22-Apr-2020 Instruction Type:Patient Education Patient Instructions Indication:Non-smoker Start:22-Apr-2020 Instruction Type:Provider Instructions for Treatment How to access health informa tion online Indication:Urinary frequency Start:27-Feb-2020 Instruction Type:Patient Education How to access health informa tion online - Detail Indication:Urinary frequency Start:27-Feb-2020 Instruction Type:Patient Education Patient Instructions Indication:Urinary frequency Start:27-Feb-2020 Instruction Type:Provider Instructions for Treatment How to access health informa tion online Indication:Non-smoker Start:15-Feb-2020 Instruction Type:Patient Education How to access health informa tion online - Detail Indication:Non-smoker Start:15-Feb-2020 Instruction Type:Patient Education Patient Instructions Indication:Non-smoker Start:15-Feb-2020 Instruction Type:Provider Instructions for Treatment obesity counseling Indication:Hypertension Start:03-Dec-2019 Instruction Type:Provider Instructions for Treatment How to access health informa tion online Indication:BMI 45.0-49.9, adult Start:14-Nov-2019 Instruction Type:Patient Education How to access health informa tion online - Detail Indication:BMI 45.0-49.9, adult Start:14-Nov-2019 Instruction Type:Patient Education Patient Instructions Indication:BMI 45.0-49.9, adult Start:14-Nov-2019 Instruction Type:Provider Instructions for Treatment How to access health informa tion online Indication:Non-smoker Start:01-Nov-2019 Instruction Type:Patient Education How to access health informa tion online - Detail Indication:Non-smoker Start:01-Nov-2019 Instruction Type:Patient Education Patient Instructions Indication:Non-smoker Start:01-Nov-2019 Instruction Type:Provider Instructions for Treatment How to access health informa tion online Indication:Nonsmoker Start:15-Oct-2019 Instruction Type:Patient Education How to access health informa tion online - Detail Indication:Nonsmoker Start:15-Oct-2019 Instruction Type:Patient Education Patient Instructions Indication:Nonsmoker Start:15-Oct-2019 Instruction Type:Provider Instructions for Treatment How to access health informa tion online - Detail Indication:BMI 50.0-59.9, adult Start:02-Apr-2019 Instruction Type:Patient Education How to access health informa tion online Indication:BMI 50.0-59.9, adult Start:02-Apr-2019 Instruction Type:Patient Education Patient Instructions Indication:BMI 50.0-59.9, adult Start:02-Apr-2019 Instruction Type:Provider Instructions for Treatment How to access health informa tion online Indication:BMI 50.0-59.9, adult Start:15-Feb-2019 Instruction Type:Patient Education How to access health informa tion online - Detail Indication:BMI 50.0-59.9, adult Start:15-Feb-2019 Instruction Type:Patient Education Patient Instructions Indication:BMI 50.0-59.9, adult Start:15-Feb-2019 Instruction Type:Provider Instructions for Treatment How to access health informa tion online Indication:Nonsmoker Start:09-Feb-2019 Instruction Type:Patient Education How to access health informa tion online - Detail Indication:Nonsmoker Start:09-Feb-2019 Instruction Type:Patient Education Patient Instructions Indication:Nonsmoker Start:09-Feb-2019 Instruction Type:Provider Instructions for Treatment How to access health informa tion online Indication:BMI 50.0-59.9, adult Start:22-Jan-2019 Instruction Type:Patient Education How to access health informa tion online - Detail Indication:BMI 50.0-59.9, adult Start:22-Jan-2019 Instruction Type:Patient Education Patient Instructions Indication:BMI 50.0-59.9, adult Start:22-Jan-2019 Instruction Type:Provider Instructions for Treatment How to access health informa tion online Indication:Nonsmoker Start:05-Oct-2018 Instruction Type:Patient Education How to access health informa tion online - Detail Indication:Nonsmoker Start:05-Oct-2018 Instruction Type:Patient Education Patient Instructions Indication:Nonsmoker Start:05-Oct-2018 Instruction Type:Provider Instructions for Treatment How to access health informa tion online Indication:BMI 50.0-59.9, adult Start:13-Jan-2018 Instruction Type:Patient Education How to access health informa tion online - Detail Indication:BMI 50.0-59.9, adult Start:13-Jan-2018 Instruction Type:Patient Education Patient Instructions Indication:BMI 50.0-59.9, adult Start:13-Jan-2018 Instruction Type:Provider Instructions for Treatment How to access health informa tion online Indication:Nonsmoker Start:06-Jan-2018 Instruction Type:Patient Education How to access health informa tion online - Detail Indication:Nonsmoker Start:06-Jan-2018 Instruction Type:Patient Education Patient Instructions Indication:Nonsmoker Start:06-Jan-2018 Instruction Type:Provider Instructions for Treatment [facility]; [facility] Work Phone: Instructions* Name Dates Details Patient Instructions Indication:BMI 45.0-49.9, adult Start:29-Jul-2021 Instruction Type:Provider Instructions for Treatment How to Access Health Informa tion Online using Patient Portal and [employer] Indication:BMI 45.0-49.9, adult Start:29-Jul-2021 Instruction Type:Patient Education Patient Instructions Indication:Hypothyroid Start:19-Jul-2021 Instruction Type:Provider Instructions for Treatment Patient Instructions Indication:Non-smoker Start:13-Jul-2021 Instruction Type:Provider Instructions for Treatment How to Access Health Informa tion Online using Patient Portal and [employer] Indication:Non-smoker Start:13-Jul-2021 Instruction Type:Patient Education Patient Instructions Indication:BMI 45.0-49.9, adult Start:25-May-2021 Instruction Type:Provider Instructions for Treatment How to Access Health Informa tion Online using Patient Portal and [employer] Indication:BMI 45.0-49.9, adult Start:25-May-2021 Instruction Type:Patient Education Patient Instructions Indication:Obesity, morbid (more than 100 lbs over ideal weight or BMI > 40) Start:18-Mar-2021 Instruction Type:Provider Instructions for Treatment How to Access Health Informa tion Online using Patient Portal and [employer] Apps Indication:Obesity, morbid (more than 100 lbs over ideal weight or BMI > 40) Start:18-Mar-2021 Instruction Type:Patient Education Patient Instructions Indication:Non-smoker Start:25-Feb-2021 Instruction Type:Provider Instructions for Treatment How to Access Health Informa tion Online using Patient Portal and [employer] Apps Indication:Non-smoker Start:25-Feb-2021 Instruction Type:Patient Education obesity counseling Indication:LUIZA (obstructive sleep apnea) Start:12-Dec-2020 Instruction Type:Provider Instructions for Treatment Patient Instructions Indication:BMI 50.0-59.9, adult Start:12-Dec-2020 Instruction Type:Provider Instructions for Treatment How to Access Health Informa tion Online using Patient Portal and [employer] Indication:BMI 50.0-59.9, adult Start:12-Dec-2020 Instruction Type:Patient Education Patient Instructions Indication:Non-smoker Start:04-Sep-2020 Instruction Type:Provider Instructions for Treatment How to Access Health Informa tion Online using Patient Portal and [employer] Apps Indication:Non-smoker Start:04-Sep-2020 Instruction Type:Patient Education How to access health informa tion online Indication:Non-smoker Start:05-May-2020 Instruction Type:Patient Education How to access health informa tion online - Detail Indication:Non-smoker Start:05-May-2020 Instruction Type:Patient Education Patient Instructions Indication:Non-smoker Start:05-May-2020 Instruction Type:Provider Instructions for Treatment How to access health informa tion online Indication:Non-smoker Start:22-Apr-2020 Instruction Type:Patient Education How to access health informa tion online - Detail Indication:Non-smoker Start:22-Apr-2020 Instruction Type:Patient Education Patient Instructions Indication:Non-smoker Start:22-Apr-2020 Instruction Type:Provider Instructions for Treatment How to access health informa tion online Indication:Urinary frequency Start:27-Feb-2020 Instruction Type:Patient Education How to access health informa tion online - Detail Indication:Urinary frequency Start:27-Feb-2020 Instruction Type:Patient Education Patient Instructions Indication:Urinary frequency Start:27-Feb-2020 Instruction Type:Provider Instructions for Treatment How to access health informa tion online Indication:Non-smoker Start:15-Feb-2020 Instruction Type:Patient Education How to access health informa tion online - Detail Indication:Non-smoker Start:15-Feb-2020 Instruction Type:Patient Education Patient Instructions Indication:Non-smoker Start:15-Feb-2020 Instruction Type:Provider Instructions for Treatment obesity counseling Indication:Hypertension Start:03-Dec-2019 Instruction Type:Provider Instructions for Treatment How to access health informa tion online Indication:BMI 45.0-49.9, adult Start:14-Nov-2019 Instruction Type:Patient Education How to access health informa tion online - Detail Indication:BMI 45.0-49.9, adult Start:14-Nov-2019 Instruction Type:Patient Education Patient Instructions Indication:BMI 45.0-49.9, adult Start:14-Nov-2019 Instruction Type:Provider Instructions for Treatment How to access health informa tion online Indication:Non-smoker Start:01-Nov-2019 Instruction Type:Patient Education How to access health informa tion online - Detail Indication:Non-smoker Start:01-Nov-2019 Instruction Type:Patient Education Patient Instructions Indication:Non-smoker Start:01-Nov-2019 Instruction Type:Provider Instructions for Treatment How to access health informa tion online Indication:Nonsmoker Start:15-Oct-2019 Instruction Type:Patient Education How to access health informa tion online - Detail Indication:Nonsmoker Start:15-Oct-2019 Instruction Type:Patient Education Patient Instructions Indication:Nonsmoker Start:15-Oct-2019 Instruction Type:Provider Instructions for Treatment How to access health informa tion online - Detail Indication:BMI 50.0-59.9, adult Start:02-Apr-2019 Instruction Type:Patient Education How to access health informa tion online Indication:BMI 50.0-59.9, adult Start:02-Apr-2019 Instruction Type:Patient Education Patient Instructions Indication:BMI 50.0-59.9, adult Start:02-Apr-2019 Instruction Type:Provider Instructions for Treatment How to access health informa tion online Indication:BMI 50.0-59.9, adult Start:15-Feb-2019 Instruction Type:Patient Education How to access health informa tion online - Detail Indication:BMI 50.0-59.9, adult Start:15-Feb-2019 Instruction Type:Patient Education Patient Instructions Indication:BMI 50.0-59.9, adult Start:15-Feb-2019 Instruction Type:Provider Instructions for Treatment How to access health informa tion online Indication:Nonsmoker Start:09-Feb-2019 Instruction Type:Patient Education How to access health informa tion online - Detail Indication:Nonsmoker Start:09-Feb-2019 Instruction Type:Patient Education Patient Instructions Indication:Nonsmoker Start:09-Feb-2019 Instruction Type:Provider Instructions for Treatment How to access health informa tion online Indication:BMI 50.0-59.9, adult Start:22-Jan-2019 Instruction Type:Patient Education How to access health informa tion online - Detail Indication:BMI 50.0-59.9, adult Start:22-Jan-2019 Instruction Type:Patient Education Patient Instructions Indication:BMI 50.0-59.9, adult Start:22-Jan-2019 Instruction Type:Provider Instructions for Treatment How to access health informa tion online Indication:Nonsmoker Start:05-Oct-2018 Instruction Type:Patient Education How to access health informa tion online - Detail Indication:Nonsmoker Start:05-Oct-2018 Instruction Type:Patient Education Patient Instructions Indication:Nonsmoker Start:05-Oct-2018 Instruction Type:Provider Instructions for Treatment How to access health informa tion online Indication:BMI 50.0-59.9, adult Start:13-Jan-2018 Instruction Type:Patient Education How to access health informa tion online - Detail Indication:BMI 50.0-59.9, adult Start:13-Jan-2018 Instruction Type:Patient Education Patient Instructions Indication:BMI 50.0-59.9, adult Start:13-Jan-2018 Instruction Type:Provider Instructions for Treatment How to access health informa tion online Indication:Nonsmoker Start:06-Jan-2018 Instruction Type:Patient Education How to access health informa tion online - Detail Indication:Nonsmoker Start:06-Jan-2018 Instruction Type:Patient Education Patient Instructions Indication:Nonsmoker Start:06-Jan-2018 Instruction Type:Provider Instructions for Treatment [facility]; [facility] Work Phone: Instructions* Name Dates Details Patient Instructions Indication:Non-smoker Start:21-Aug-2021 Instruction Type:Provider Instructions for Treatment How to Access Health Informa tion Online using Patient Portal and [employer] Indication:Non-smoker Start:21-Aug-2021 Instruction Type:Patient Education Patient Instructions Indication:BMI 45.0-49.9, adult Start:29-Jul-2021 Instruction Type:Provider Instructions for Treatment How to Access Health Informa tion Online using Patient Portal and [employer] Indication:BMI 45.0-49.9, adult Start:29-Jul-2021 Instruction Type:Patient Education Patient Instructions Indication:Hypothyroid Start:19-Jul-2021 Instruction Type:Provider Instructions for Treatment Patient Instructions Indication:Non-smoker Start:13-Jul-2021 Instruction Type:Provider Instructions for Treatment How to Access Health Informa tion Online using Patient Portal and [employer] Indication:Non-smoker Start:13-Jul-2021 Instruction Type:Patient Education Patient Instructions Indication:BMI 45.0-49.9, adult Start:25-May-2021 Instruction Type:Provider Instructions for Treatment How to Access Health Informa tion Online using Patient Portal and [employer] Indication:BMI 45.0-49.9, adult Start:25-May-2021 Instruction Type:Patient Education Patient Instructions Indication:Obesity, morbid (more than 100 lbs over ideal weight or BMI > 40) Start:18-Mar-2021 Instruction Type:Provider Instructions for Treatment How to Access Health Informa tion Online using Patient Portal and [employer] Indication:Obesity, morbid (more than 100 lbs over ideal weight or BMI > 40) Start:18-Mar-2021 Instruction Type:Patient Education Patient Instructions Indication:Non-smoker Start:25-Feb-2021 Instruction Type:Provider Instructions for Treatment How to Access Health Informa tion Online using Patient Portal and [employer] Indication:Non-smoker Start:25-Feb-2021 Instruction Type:Patient Education obesity counseling Indication:LUIZA (obstructive sleep apnea) Start:12-Dec-2020 Instruction Type:Provider Instructions for Treatment Patient Instructions Indication:BMI 50.0-59.9, adult Start:12-Dec-2020 Instruction Type:Provider Instructions for Treatment How to Access Health Informa tion Online using Patient Portal and [employer] Indication:BMI 50.0-59.9, adult Start:12-Dec-2020 Instruction Type:Patient Education Patient Instructions Indication:Non-smoker Start:04-Sep-2020 Instruction Type:Provider Instructions for Treatment How to Access Health Informa tion Online using Patient Portal and [employer] Indication:Non-smoker Start:04-Sep-2020 Instruction Type:Patient Education How to access health informa tion online Indication:Non-smoker Start:05-May-2020 Instruction Type:Patient Education How to access health informa tion online - Detail Indication:Non-smoker Start:05-May-2020 Instruction Type:Patient Education Patient Instructions Indication:Non-smoker Start:05-May-2020 Instruction Type:Provider Instructions for Treatment How to access health informa tion online Indication:Non-smoker Start:22-Apr-2020 Instruction Type:Patient Education How to access health informa tion online - Detail Indication:Non-smoker Start:22-Apr-2020 Instruction Type:Patient Education Patient Instructions Indication:Non-smoker Start:22-Apr-2020 Instruction Type:Provider Instructions for Treatment How to access health informa tion online Indication:Urinary frequency Start:27-Feb-2020 Instruction Type:Patient Education How to access health informa tion online - Detail Indication:Urinary frequency Start:27-Feb-2020 Instruction Type:Patient Education Patient Instructions Indication:Urinary frequency Start:27-Feb-2020 Instruction Type:Provider Instructions for Treatment How to access health informa tion online Indication:Non-smoker Start:15-Feb-2020 Instruction Type:Patient Education How to access health informa tion online - Detail Indication:Non-smoker Start:15-Feb-2020 Instruction Type:Patient Education Patient Instructions Indication:Non-smoker Start:15-Feb-2020 Instruction Type:Provider Instructions for Treatment obesity counseling Indication:Hypertension Start:03-Dec-2019 Instruction Type:Provider Instructions for Treatment How to access health informa tion online Indication:BMI 45.0-49.9, adult Start:14-Nov-2019 Instruction Type:Patient Education How to access health informa tion online - Detail Indication:BMI 45.0-49.9, adult Start:14-Nov-2019 Instruction Type:Patient Education Patient Instructions Indication:BMI 45.0-49.9, adult Start:14-Nov-2019 Instruction Type:Provider Instructions for Treatment How to access health informa tion online Indication:Non-smoker Start:01-Nov-2019 Instruction Type:Patient Education How to access health informa tion online - Detail Indication:Non-smoker Start:01-Nov-2019 Instruction Type:Patient Education Patient Instructions Indication:Non-smoker Start:01-Nov-2019 Instruction Type:Provider Instructions for Treatment How to access health informa tion online Indication:Nonsmoker Start:15-Oct-2019 Instruction Type:Patient Education How to access health informa tion online - Detail Indication:Nonsmoker Start:15-Oct-2019 Instruction Type:Patient Education Patient Instructions Indication:Nonsmoker Start:15-Oct-2019 Instruction Type:Provider Instructions for Treatment How to access health informa tion online - Detail Indication:BMI 50.0-59.9, adult Start:02-Apr-2019 Instruction Type:Patient Education How to access health informa tion online Indication:BMI 50.0-59.9, adult Start:02-Apr-2019 Instruction Type:Patient Education Patient Instructions Indication:BMI 50.0-59.9, adult Start:02-Apr-2019 Instruction Type:Provider Instructions for Treatment How to access health informa tion online Indication:BMI 50.0-59.9, adult Start:15-Feb-2019 Instruction Type:Patient Education How to access health informa tion online - Detail Indication:BMI 50.0-59.9, adult Start:15-Feb-2019 Instruction Type:Patient Education Patient Instructions Indication:BMI 50.0-59.9, adult Start:15-Feb-2019 Instruction Type:Provider Instructions for Treatment How to access health informa tion online Indication:Nonsmoker Start:09-Feb-2019 Instruction Type:Patient Education How to access health informa tion online - Detail Indication:Nonsmoker Start:09-Feb-2019 Instruction Type:Patient Education Patient Instructions Indication:Nonsmoker Start:09-Feb-2019 Instruction Type:Provider Instructions for Treatment How to access health informa tion online Indication:BMI 50.0-59.9, adult Start:22-Jan-2019 Instruction Type:Patient Education How to access health informa tion online - Detail Indication:BMI 50.0-59.9, adult Start:22-Jan-2019 Instruction Type:Patient Education Patient Instructions Indication:BMI 50.0-59.9, adult Start:22-Jan-2019 Instruction Type:Provider Instructions for Treatment How to access health informa tion online Indication:Nonsmoker Start:05-Oct-2018 Instruction Type:Patient Education How to access health informa tion online - Detail Indication:Nonsmoker Start:05-Oct-2018 Instruction Type:Patient Education Patient Instructions Indication:Nonsmoker Start:05-Oct-2018 Instruction Type:Provider Instructions for Treatment How to access health informa tion online Indication:BMI 50.0-59.9, adult Start:13-Jan-2018 Instruction Type:Patient Education How to access health informa tion online - Detail Indication:BMI 50.0-59.9, adult Start:13-Jan-2018 Instruction Type:Patient Education Patient Instructions Indication:BMI 50.0-59.9, adult Start:13-Jan-2018 Instruction Type:Provider Instructions for Treatment How to access health informa tion online Indication:Nonsmoker Start:06-Jan-2018 Instruction Type:Patient Education How to access health informa tion online - Detail Indication:Nonsmoker Start:06-Jan-2018 Instruction Type:Patient Education Patient Instructions Indication:Nonsmoker Start:06-Jan-2018 Instruction Type:Provider Instructions for Treatment [facility]; [facility] Work Phone: Instructions* Name Dates Details Patient Instructions Indication:Non-smoker Start:12-Oct-2021 Instruction Type:Provider Instructions for Treatment How to Access Health Informa tion Online using Patient Portal and [employer] Indication:Non-smoker Start:12-Oct-2021 Instruction Type:Patient Education Patient Instructions Indication:Non-smoker Start:21-Aug-2021 Instruction Type:Provider Instructions for Treatment How to Access Health Informa tion Online using Patient Portal and [employer] Indication:Non-smoker Start:21-Aug-2021 Instruction Type:Patient Education Patient Instructions Indication:BMI 45.0-49.9, adult Start:29-Jul-2021 Instruction Type:Provider Instructions for Treatment How to Access Health Informa tion Online using Patient Portal and [employer] Indication:BMI 45.0-49.9, adult Start:29-Jul-2021 Instruction Type:Patient Education Patient Instructions Indication:Hypothyroid Start:19-Jul-2021 Instruction Type:Provider Instructions for Treatment Patient Instructions Indication:Non-smoker Start:13-Jul-2021 Instruction Type:Provider Instructions for Treatment How to Access Health Informa tion Online using Patient Portal and [employer] Indication:Non-smoker Start:13-Jul-2021 Instruction Type:Patient Education Patient Instructions Indication:BMI 45.0-49.9, adult Start:25-May-2021 Instruction Type:Provider Instructions for Treatment How to Access Health Informa tion Online using Patient Portal and [employer] Indication:BMI 45.0-49.9, adult Start:25-May-2021 Instruction Type:Patient Education Patient Instructions Indication:Obesity, morbid (more than 100 lbs over ideal weight or BMI > 40) Start:18-Mar-2021 Instruction Type:Provider Instructions for Treatment How to Access Health Informa tion Online using Patient Portal and [employer] Indication:Obesity, morbid (more than 100 lbs over ideal weight or BMI > 40) Start:18-Mar-2021 Instruction Type:Patient Education Patient Instructions Indication:Non-smoker Start:25-Feb-2021 Instruction Type:Provider Instructions for Treatment How to Access Health Informa tion Online using Patient Portal and [employer] Indication:Non-smoker Start:25-Feb-2021 Instruction Type:Patient Education obesity counseling Indication:LUIZA (obstructive sleep apnea) Start:12-Dec-2020 Instruction Type:Provider Instructions for Treatment Patient Instructions Indication:BMI 50.0-59.9, adult Start:12-Dec-2020 Instruction Type:Provider Instructions for Treatment How to Access Health Informa tion Online using Patient Portal and [employer] Indication:BMI 50.0-59.9, adult Start:12-Dec-2020 Instruction Type:Patient Education Patient Instructions Indication:Non-smoker Start:04-Sep-2020 Instruction Type:Provider Instructions for Treatment How to Access Health Informa tion Online using Patient Portal and [employer] Apps Indication:Non-smoker Start:04-Sep-2020 Instruction Type:Patient Education How to access health informa tion online Indication:Non-smoker Start:05-May-2020 Instruction Type:Patient Education How to access health informa tion online - Detail Indication:Non-smoker Start:05-May-2020 Instruction Type:Patient Education Patient Instructions Indication:Non-smoker Start:05-May-2020 Instruction Type:Provider Instructions for Treatment How to access health informa tion online Indication:Non-smoker Start:22-Apr-2020 Instruction Type:Patient Education How to access health informa tion online - Detail Indication:Non-smoker Start:22-Apr-2020 Instruction Type:Patient Education Patient Instructions Indication:Non-smoker Start:22-Apr-2020 Instruction Type:Provider Instructions for Treatment How to access health informa tion online Indication:Urinary frequency Start:27-Feb-2020 Instruction Type:Patient Education How to access health informa tion online - Detail Indication:Urinary frequency Start:27-Feb-2020 Instruction Type:Patient Education Patient Instructions Indication:Urinary frequency Start:27-Feb-2020 Instruction Type:Provider Instructions for Treatment How to access health informa tion online Indication:Non-smoker Start:15-Feb-2020 Instruction Type:Patient Education How to access health informa tion online - Detail Indication:Non-smoker Start:15-Feb-2020 Instruction Type:Patient Education Patient Instructions Indication:Non-smoker Start:15-Feb-2020 Instruction Type:Provider Instructions for Treatment obesity counseling Indication:Hypertension Start:03-Dec-2019 Instruction Type:Provider Instructions for Treatment How to access health informa tion online Indication:BMI 45.0-49.9, adult Start:14-Nov-2019 Instruction Type:Patient Education How to access health informa tion online - Detail Indication:BMI 45.0-49.9, adult Start:14-Nov-2019 Instruction Type:Patient Education Patient Instructions Indication:BMI 45.0-49.9, adult Start:14-Nov-2019 Instruction Type:Provider Instructions for Treatment How to access health informa tion online Indication:Non-smoker Start:01-Nov-2019 Instruction Type:Patient Education How to access health informa tion online - Detail Indication:Non-smoker Start:01-Nov-2019 Instruction Type:Patient Education Patient Instructions Indication:Non-smoker Start:01-Nov-2019 Instruction Type:Provider Instructions for Treatment How to access health informa tion online Indication:Nonsmoker Start:15-Oct-2019 Instruction Type:Patient Education How to access health informa tion online - Detail Indication:Nonsmoker Start:15-Oct-2019 Instruction Type:Patient Education Patient Instructions Indication:Nonsmoker Start:15-Oct-2019 Instruction Type:Provider Instructions for Treatment How to access health informa tion online - Detail Indication:BMI 50.0-59.9, adult Start:02-Apr-2019 Instruction Type:Patient Education How to access health informa tion online Indication:BMI 50.0-59.9, adult Start:02-Apr-2019 Instruction Type:Patient Education Patient Instructions Indication:BMI 50.0-59.9, adult Start:02-Apr-2019 Instruction Type:Provider Instructions for Treatment How to access health informa tion online Indication:BMI 50.0-59.9, adult Start:15-Feb-2019 Instruction Type:Patient Education How to access health informa tion online - Detail Indication:BMI 50.0-59.9, adult Start:15-Feb-2019 Instruction Type:Patient Education Patient Instructions Indication:BMI 50.0-59.9, adult Start:15-Feb-2019 Instruction Type:Provider Instructions for Treatment How to access health informa tion online Indication:Nonsmoker Start:09-Feb-2019 Instruction Type:Patient Education How to access health informa tion online - Detail Indication:Nonsmoker Start:09-Feb-2019 Instruction Type:Patient Education Patient Instructions Indication:Nonsmoker Start:09-Feb-2019 Instruction Type:Provider Instructions for Treatment How to access health informa tion online Indication:BMI 50.0-59.9, adult Start:22-Jan-2019 Instruction Type:Patient Education How to access health informa tion online - Detail Indication:BMI 50.0-59.9, adult Start:22-Jan-2019 Instruction Type:Patient Education Patient Instructions Indication:BMI 50.0-59.9, adult Start:22-Jan-2019 Instruction Type:Provider Instructions for Treatment How to access health informa tion online Indication:Nonsmoker Start:05-Oct-2018 Instruction Type:Patient Education How to access health informa tion online - Detail Indication:Nonsmoker Start:05-Oct-2018 Instruction Type:Patient Education Patient Instructions Indication:Nonsmoker Start:05-Oct-2018 Instruction Type:Provider Instructions for Treatment How to access health informa tion online Indication:BMI 50.0-59.9, adult Start:13-Jan-2018 Instruction Type:Patient Education How to access health informa tion online - Detail Indication:BMI 50.0-59.9, adult Start:13-Jan-2018 Instruction Type:Patient Education Patient Instructions Indication:BMI 50.0-59.9, adult Start:13-Jan-2018 Instruction Type:Provider Instructions for Treatment How to access health informa tion online Indication:Nonsmoker Start:06-Jan-2018 Instruction Type:Patient Education How to access health informa tion online - Detail Indication:Nonsmoker Start:06-Jan-2018 Instruction Type:Patient Education Patient Instructions Indication:Nonsmoker Start:06-Jan-2018 Instruction Type:Provider Instructions for Treatment [facility]; [facility] Work Phone: Instructions* Name Dates Details Patient Instructions Indication:Non-smoker Start:12-Oct-2021 Instruction Type:Provider Instructions for Treatment How to Access Health Informa tion Online using Patient Portal and [employer] Apps Indication:Non-smoker Start:12-Oct-2021 Instruction Type:Patient Education Patient Instructions Indication:Non-smoker Start:21-Aug-2021 Instruction Type:Provider Instructions for Treatment How to Access Health Informa tion Online using Patient Portal and [employer] Apps Indication:Non-smoker Start:21-Aug-2021 Instruction Type:Patient Education Patient Instructions Indication:BMI 45.0-49.9, adult Start:29-Jul-2021 Instruction Type:Provider Instructions for Treatment How to Access Health Informa tion Online using Patient Portal and [employer] Apps Indication:BMI 45.0-49.9, adult Start:29-Jul-2021 Instruction Type:Patient Education Patient Instructions Indication:Hypothyroid Start:19-Jul-2021 Instruction Type:Provider Instructions for Treatment Patient Instructions Indication:Non-smoker Start:13-Jul-2021 Instruction Type:Provider Instructions for Treatment How to Access Health Informa tion Online using Patient Portal and [employer] Apps Indication:Non-smoker Start:13-Jul-2021 Instruction Type:Patient Education Patient Instructions Indication:BMI 45.0-49.9, adult Start:25-May-2021 Instruction Type:Provider Instructions for Treatment How to Access Health Informa tion Online using Patient Portal and [employer] Apps Indication:BMI 45.0-49.9, adult Start:25-May-2021 Instruction Type:Patient Education Patient Instructions Indication:Obesity, morbid (more than 100 lbs over ideal weight or BMI > 40) Start:18-Mar-2021 Instruction Type:Provider Instructions for Treatment How to Access Health Informa tion Online using Patient Portal and [employer] Apps Indication:Obesity, morbid (more than 100 lbs over ideal weight or BMI > 40) Start:18-Mar-2021 Instruction Type:Patient Education Patient Instructions Indication:Non-smoker Start:25-Feb-2021 Instruction Type:Provider Instructions for Treatment How to Access Health Informa tion Online using Patient Portal and [employer] Apps Indication:Non-smoker Start:25-Feb-2021 Instruction Type:Patient Education obesity counseling Indication:LUIZA (obstructive sleep apnea) Start:12-Dec-2020 Instruction Type:Provider Instructions for Treatment Patient Instructions Indication:BMI 50.0-59.9, adult Start:12-Dec-2020 Instruction Type:Provider Instructions for Treatment How to Access Health Informa tion Online using Patient Portal and [employer] Apps Indication:BMI 50.0-59.9, adult Start:12-Dec-2020 Instruction Type:Patient Education Patient Instructions Indication:Non-smoker Start:04-Sep-2020 Instruction Type:Provider Instructions for Treatment How to Access Health Informa tion Online using Patient Portal and [employer] Apps Indication:Non-smoker Start:04-Sep-2020 Instruction Type:Patient Education How to access health informa tion online Indication:Non-smoker Start:05-May-2020 Instruction Type:Patient Education How to access health informa tion online - Detail Indication:Non-smoker Start:05-May-2020 Instruction Type:Patient Education Patient Instructions Indication:Non-smoker Start:05-May-2020 Instruction Type:Provider Instructions for Treatment How to access health informa tion online Indication:Non-smoker Start:22-Apr-2020 Instruction Type:Patient Education How to access health informa tion online - Detail Indication:Non-smoker Start:22-Apr-2020 Instruction Type:Patient Education Patient Instructions Indication:Non-smoker Start:22-Apr-2020 Instruction Type:Provider Instructions for Treatment How to access health informa tion online Indication:Urinary frequency Start:27-Feb-2020 Instruction Type:Patient Education How to access health informa tion online - Detail Indication:Urinary frequency Start:27-Feb-2020 Instruction Type:Patient Education Patient Instructions Indication:Urinary frequency Start:27-Feb-2020 Instruction Type:Provider Instructions for Treatment How to access health informa tion online Indication:Non-smoker Start:15-Feb-2020 Instruction Type:Patient Education How to access health informa tion online - Detail Indication:Non-smoker Start:15-Feb-2020 Instruction Type:Patient Education Patient Instructions Indication:Non-smoker Start:15-Feb-2020 Instruction Type:Provider Instructions for Treatment obesity counseling Indication:Hypertension Start:03-Dec-2019 Instruction Type:Provider Instructions for Treatment How to access health informa tion online Indication:BMI 45.0-49.9, adult Start:14-Nov-2019 Instruction Type:Patient Education How to access health informa tion online - Detail Indication:BMI 45.0-49.9, adult Start:14-Nov-2019 Instruction Type:Patient Education Patient Instructions Indication:BMI 45.0-49.9, adult Start:14-Nov-2019 Instruction Type:Provider Instructions for Treatment How to access health informa tion online Indication:Non-smoker Start:01-Nov-2019 Instruction Type:Patient Education How to access health informa tion online - Detail Indication:Non-smoker Start:01-Nov-2019 Instruction Type:Patient Education Patient Instructions Indication:Non-smoker Start:01-Nov-2019 Instruction Type:Provider Instructions for Treatment How to access health informa tion online Indication:Nonsmoker Start:15-Oct-2019 Instruction Type:Patient Education How to access health informa tion online - Detail Indication:Nonsmoker Start:15-Oct-2019 Instruction Type:Patient Education Patient Instructions Indication:Nonsmoker Start:15-Oct-2019 Instruction Type:Provider Instructions for Treatment How to access health informa tion online - Detail Indication:BMI 50.0-59.9, adult Start:02-Apr-2019 Instruction Type:Patient Education How to access health informa tion online Indication:BMI 50.0-59.9, adult Start:02-Apr-2019 Instruction Type:Patient Education Patient Instructions Indication:BMI 50.0-59.9, adult Start:02-Apr-2019 Instruction Type:Provider Instructions for Treatment How to access health informa tion online Indication:BMI 50.0-59.9, adult Start:15-Feb-2019 Instruction Type:Patient Education How to access health informa tion online - Detail Indication:BMI 50.0-59.9, adult Start:15-Feb-2019 Instruction Type:Patient Education Patient Instructions Indication:BMI 50.0-59.9, adult Start:15-Feb-2019 Instruction Type:Provider Instructions for Treatment How to access health informa tion online Indication:Nonsmoker Start:09-Feb-2019 Instruction Type:Patient Education How to access health informa tion online - Detail Indication:Nonsmoker Start:09-Feb-2019 Instruction Type:Patient Education Patient Instructions Indication:Nonsmoker Start:09-Feb-2019 Instruction Type:Provider Instructions for Treatment How to access health informa tion online Indication:BMI 50.0-59.9, adult Start:22-Jan-2019 Instruction Type:Patient Education How to access health informa tion online - Detail Indication:BMI 50.0-59.9, adult Start:22-Jan-2019 Instruction Type:Patient Education Patient Instructions Indication:BMI 50.0-59.9, adult Start:22-Jan-2019 Instruction Type:Provider Instructions for Treatment How to access health informa tion online Indication:Nonsmoker Start:05-Oct-2018 Instruction Type:Patient Education How to access health informa tion online - Detail Indication:Nonsmoker Start:05-Oct-2018 Instruction Type:Patient Education Patient Instructions Indication:Nonsmoker Start:05-Oct-2018 Instruction Type:Provider Instructions for Treatment How to access health informa tion online Indication:BMI 50.0-59.9, adult Start:13-Jan-2018 Instruction Type:Patient Education How to access health informa tion online - Detail Indication:BMI 50.0-59.9, adult Start:13-Jan-2018 Instruction Type:Patient Education Patient Instructions Indication:BMI 50.0-59.9, adult Start:13-Jan-2018 Instruction Type:Provider Instructions for Treatment How to access health informa tion online Indication:Nonsmoker Start:06-Jan-2018 Instruction Type:Patient Education How to access health informa tion online - Detail Indication:Nonsmoker Start:06-Jan-2018 Instruction Type:Patient Education Patient Instructions Indication:Nonsmoker Start:06-Jan-2018 Instruction Type:Provider Instructions for Treatment [facility]; [facility] Work Phone: Instructions* Name Dates Details Patient Instructions Indication:Non-smoker Start:12-Oct-2021 Instruction Type:Provider Instructions for Treatment How to Access Health Informa tion Online using Patient Portal and [employer] Apps Indication:Non-smoker Start:12-Oct-2021 Instruction Type:Patient Education Patient Instructions Indication:Non-smoker Start:21-Aug-2021 Instruction Type:Provider Instructions for Treatment How to Access Health Informa tion Online using Patient Portal and [employer] Apps Indication:Non-smoker Start:21-Aug-2021 Instruction Type:Patient Education Patient Instructions Indication:BMI 45.0-49.9, adult Start:29-Jul-2021 Instruction Type:Provider Instructions for Treatment How to Access Health Informa tion Online using Patient Portal and [employer] Apps Indication:BMI 45.0-49.9, adult Start:29-Jul-2021 Instruction Type:Patient Education Patient Instructions Indication:Hypothyroid Start:19-Jul-2021 Instruction Type:Provider Instructions for Treatment Patient Instructions Indication:Non-smoker Start:13-Jul-2021 Instruction Type:Provider Instructions for Treatment How to Access Health Informa tion Online using Patient Portal and [employer] Apps Indication:Non-smoker Start:13-Jul-2021 Instruction Type:Patient Education Patient Instructions Indication:BMI 45.0-49.9, adult Start:25-May-2021 Instruction Type:Provider Instructions for Treatment How to Access Health Informa tion Online using Patient Portal and [employer] Apps Indication:BMI 45.0-49.9, adult Start:25-May-2021 Instruction Type:Patient Education Patient Instructions Indication:Obesity, morbid (more than 100 lbs over ideal weight or BMI > 40) Start:18-Mar-2021 Instruction Type:Provider Instructions for Treatment How to Access Health Informa tion Online using Patient Portal and [employer] Apps Indication:Obesity, morbid (more than 100 lbs over ideal weight or BMI > 40) Start:18-Mar-2021 Instruction Type:Patient Education Patient Instructions Indication:Non-smoker Start:25-Feb-2021 Instruction Type:Provider Instructions for Treatment How to Access Health Informa tion Online using Patient Portal and [employer] Apps Indication:Non-smoker Start:25-Feb-2021 Instruction Type:Patient Education obesity counseling Indication:LUIZA (obstructive sleep apnea) Start:12-Dec-2020 Instruction Type:Provider Instructions for Treatment Patient Instructions Indication:BMI 50.0-59.9, adult Start:12-Dec-2020 Instruction Type:Provider Instructions for Treatment How to Access Health Informa tion Online using Patient Portal and [employer] Apps Indication:BMI 50.0-59.9, adult Start:12-Dec-2020 Instruction Type:Patient Education Patient Instructions Indication:Non-smoker Start:04-Sep-2020 Instruction Type:Provider Instructions for Treatment How to Access Health Informa tion Online using Patient Portal and [employer] Apps Indication:Non-smoker Start:04-Sep-2020 Instruction Type:Patient Education How to access health informa tion online Indication:Non-smoker Start:05-May-2020 Instruction Type:Patient Education How to access health informa tion online - Detail Indication:Non-smoker Start:05-May-2020 Instruction Type:Patient Education Patient Instructions Indication:Non-smoker Start:05-May-2020 Instruction Type:Provider Instructions for Treatment How to access health informa tion online Indication:Non-smoker Start:22-Apr-2020 Instruction Type:Patient Education How to access health informa tion online - Detail Indication:Non-smoker Start:22-Apr-2020 Instruction Type:Patient Education Patient Instructions Indication:Non-smoker Start:22-Apr-2020 Instruction Type:Provider Instructions for Treatment How to access health informa tion online Indication:Urinary frequency Start:27-Feb-2020 Instruction Type:Patient Education How to access health informa tion online - Detail Indication:Urinary frequency Start:27-Feb-2020 Instruction Type:Patient Education Patient Instructions Indication:Urinary frequency Start:27-Feb-2020 Instruction Type:Provider Instructions for Treatment How to access health informa tion online Indication:Non-smoker Start:15-Feb-2020 Instruction Type:Patient Education How to access health informa tion online - Detail Indication:Non-smoker Start:15-Feb-2020 Instruction Type:Patient Education Patient Instructions Indication:Non-smoker Start:15-Feb-2020 Instruction Type:Provider Instructions for Treatment obesity counseling Indication:Hypertension Start:03-Dec-2019 Instruction Type:Provider Instructions for Treatment How to access health informa tion online Indication:BMI 45.0-49.9, adult Start:14-Nov-2019 Instruction Type:Patient Education How to access health informa tion online - Detail Indication:BMI 45.0-49.9, adult Start:14-Nov-2019 Instruction Type:Patient Education Patient Instructions Indication:BMI 45.0-49.9, adult Start:14-Nov-2019 Instruction Type:Provider Instructions for Treatment How to access health informa tion online Indication:Non-smoker Start:01-Nov-2019 Instruction Type:Patient Education How to access health informa tion online - Detail Indication:Non-smoker Start:01-Nov-2019 Instruction Type:Patient Education Patient Instructions Indication:Non-smoker Start:01-Nov-2019 Instruction Type:Provider Instructions for Treatment How to access health informa tion online Indication:Nonsmoker Start:15-Oct-2019 Instruction Type:Patient Education How to access health informa tion online - Detail Indication:Nonsmoker Start:15-Oct-2019 Instruction Type:Patient Education Patient Instructions Indication:Nonsmoker Start:15-Oct-2019 Instruction Type:Provider Instructions for Treatment How to access health informa tion online - Detail Indication:BMI 50.0-59.9, adult Start:02-Apr-2019 Instruction Type:Patient Education How to access health informa tion online Indication:BMI 50.0-59.9, adult Start:02-Apr-2019 Instruction Type:Patient Education Patient Instructions Indication:BMI 50.0-59.9, adult Start:02-Apr-2019 Instruction Type:Provider Instructions for Treatment How to access health informa tion online Indication:BMI 50.0-59.9, adult Start:15-Feb-2019 Instruction Type:Patient Education How to access health informa tion online - Detail Indication:BMI 50.0-59.9, adult Start:15-Feb-2019 Instruction Type:Patient Education Patient Instructions Indication:BMI 50.0-59.9, adult Start:15-Feb-2019 Instruction Type:Provider Instructions for Treatment How to access health informa tion online Indication:Nonsmoker Start:09-Feb-2019 Instruction Type:Patient Education How to access health informa tion online - Detail Indication:Nonsmoker Start:09-Feb-2019 Instruction Type:Patient Education Patient Instructions Indication:Nonsmoker Start:09-Feb-2019 Instruction Type:Provider Instructions for Treatment How to access health informa tion online Indication:BMI 50.0-59.9, adult Start:22-Jan-2019 Instruction Type:Patient Education How to access health informa tion online - Detail Indication:BMI 50.0-59.9, adult Start:22-Jan-2019 Instruction Type:Patient Education Patient Instructions Indication:BMI 50.0-59.9, adult Start:22-Jan-2019 Instruction Type:Provider Instructions for Treatment How to access health informa tion online Indication:Nonsmoker Start:05-Oct-2018 Instruction Type:Patient Education How to access health informa tion online - Detail Indication:Nonsmoker Start:05-Oct-2018 Instruction Type:Patient Education Patient Instructions Indication:Nonsmoker Start:05-Oct-2018 Instruction Type:Provider Instructions for Treatment How to access health informa tion online Indication:BMI 50.0-59.9, adult Start:13-Jan-2018 Instruction Type:Patient Education How to access health informa tion online - Detail Indication:BMI 50.0-59.9, adult Start:13-Jan-2018 Instruction Type:Patient Education Patient Instructions Indication:BMI 50.0-59.9, adult Start:13-Jan-2018 Instruction Type:Provider Instructions for Treatment How to access health informa tion online Indication:Nonsmoker Start:06-Jan-2018 Instruction Type:Patient Education How to access health informa tion online - Detail Indication:Nonsmoker Start:06-Jan-2018 Instruction Type:Patient Education Patient Instructions Indication:Nonsmoker Start:06-Jan-2018 Instruction Type:Provider Instructions for Treatment [facility]; [facility] Work Phone: Instructions* Name Dates Details Patient Instructions Indication:Non-smoker Start:09-Nov-2021 Instruction Type:Provider Instructions for Treatment How to Access Health Informa tion Online using Patient Portal and [employer] Indication:Non-smoker Start:09-Nov-2021 Instruction Type:Patient Education Patient Instructions Indication:Non-smoker Start:12-Oct-2021 Instruction Type:Provider Instructions for Treatment How to Access Health Informa tion Online using Patient Portal and [employer] Apps Indication:Non-smoker Start:12-Oct-2021 Instruction Type:Patient Education Patient Instructions Indication:Non-smoker Start:21-Aug-2021 Instruction Type:Provider Instructions for Treatment How to Access Health Informa tion Online using Patient Portal and [employer] Apps Indication:Non-smoker Start:21-Aug-2021 Instruction Type:Patient Education Patient Instructions Indication:BMI 45.0-49.9, adult Start:29-Jul-2021 Instruction Type:Provider Instructions for Treatment How to Access Health Informa tion Online using Patient Portal and [employer] Indication:BMI 45.0-49.9, adult Start:29-Jul-2021 Instruction Type:Patient Education Patient Instructions Indication:Hypothyroid Start:19-Jul-2021 Instruction Type:Provider Instructions for Treatment Patient Instructions Indication:Non-smoker Start:13-Jul-2021 Instruction Type:Provider Instructions for Treatment How to Access Health Informa tion Online using Patient Portal and [employer] Apps Indication:Non-smoker Start:13-Jul-2021 Instruction Type:Patient Education Patient Instructions Indication:BMI 45.0-49.9, adult Start:25-May-2021 Instruction Type:Provider Instructions for Treatment How to Access Health Informa tion Online using Patient Portal and [employer] Indication:BMI 45.0-49.9, adult Start:25-May-2021 Instruction Type:Patient Education Patient Instructions Indication:Obesity, morbid (more than 100 lbs over ideal weight or BMI > 40) Start:18-Mar-2021 Instruction Type:Provider Instructions for Treatment How to Access Health Informa tion Online using Patient Portal and [employer] Apps Indication:Obesity, morbid (more than 100 lbs over ideal weight or BMI > 40) Start:18-Mar-2021 Instruction Type:Patient Education Patient Instructions Indication:Non-smoker Start:25-Feb-2021 Instruction Type:Provider Instructions for Treatment How to Access Health Informa tion Online using Patient Portal and [employer] Apps Indication:Non-smoker Start:25-Feb-2021 Instruction Type:Patient Education obesity counseling Indication:LUIZA (obstructive sleep apnea) Start:12-Dec-2020 Instruction Type:Provider Instructions for Treatment Patient Instructions Indication:BMI 50.0-59.9, adult Start:12-Dec-2020 Instruction Type:Provider Instructions for Treatment How to Access Health Informa tion Online using Patient Portal and [employer] Apps Indication:BMI 50.0-59.9, adult Start:12-Dec-2020 Instruction Type:Patient Education Patient Instructions Indication:Non-smoker Start:04-Sep-2020 Instruction Type:Provider Instructions for Treatment How to Access Health Informa tion Online using Patient Portal and [employer] Apps Indication:Non-smoker Start:04-Sep-2020 Instruction Type:Patient Education How to access health informa tion online Indication:Non-smoker Start:05-May-2020 Instruction Type:Patient Education How to access health informa tion online - Detail Indication:Non-smoker Start:05-May-2020 Instruction Type:Patient Education Patient Instructions Indication:Non-smoker Start:05-May-2020 Instruction Type:Provider Instructions for Treatment How to access health informa tion online Indication:Non-smoker Start:22-Apr-2020 Instruction Type:Patient Education How to access health informa tion online - Detail Indication:Non-smoker Start:22-Apr-2020 Instruction Type:Patient Education Patient Instructions Indication:Non-smoker Start:22-Apr-2020 Instruction Type:Provider Instructions for Treatment How to access health informa tion online Indication:Urinary frequency Start:27-Feb-2020 Instruction Type:Patient Education How to access health informa tion online - Detail Indication:Urinary frequency Start:27-Feb-2020 Instruction Type:Patient Education Patient Instructions Indication:Urinary frequency Start:27-Feb-2020 Instruction Type:Provider Instructions for Treatment How to access health informa tion online Indication:Non-smoker Start:15-Feb-2020 Instruction Type:Patient Education How to access health informa tion online - Detail Indication:Non-smoker Start:15-Feb-2020 Instruction Type:Patient Education Patient Instructions Indication:Non-smoker Start:15-Feb-2020 Instruction Type:Provider Instructions for Treatment obesity counseling Indication:Hypertension Start:03-Dec-2019 Instruction Type:Provider Instructions for Treatment How to access health informa tion online Indication:BMI 45.0-49.9, adult Start:14-Nov-2019 Instruction Type:Patient Education How to access health informa tion online - Detail Indication:BMI 45.0-49.9, adult Start:14-Nov-2019 Instruction Type:Patient Education Patient Instructions Indication:BMI 45.0-49.9, adult Start:14-Nov-2019 Instruction Type:Provider Instructions for Treatment How to access health informa tion online Indication:Non-smoker Start:01-Nov-2019 Instruction Type:Patient Education How to access health informa tion online - Detail Indication:Non-smoker Start:01-Nov-2019 Instruction Type:Patient Education Patient Instructions Indication:Non-smoker Start:01-Nov-2019 Instruction Type:Provider Instructions for Treatment How to access health informa tion online Indication:Nonsmoker Start:15-Oct-2019 Instruction Type:Patient Education How to access health informa tion online - Detail Indication:Nonsmoker Start:15-Oct-2019 Instruction Type:Patient Education Patient Instructions Indication:Nonsmoker Start:15-Oct-2019 Instruction Type:Provider Instructions for Treatment How to access health informa tion online - Detail Indication:BMI 50.0-59.9, adult Start:02-Apr-2019 Instruction Type:Patient Education How to access health informa tion online Indication:BMI 50.0-59.9, adult Start:02-Apr-2019 Instruction Type:Patient Education Patient Instructions Indication:BMI 50.0-59.9, adult Start:02-Apr-2019 Instruction Type:Provider Instructions for Treatment How to access health informa tion online Indication:BMI 50.0-59.9, adult Start:15-Feb-2019 Instruction Type:Patient Education How to access health informa tion online - Detail Indication:BMI 50.0-59.9, adult Start:15-Feb-2019 Instruction Type:Patient Education Patient Instructions Indication:BMI 50.0-59.9, adult Start:15-Feb-2019 Instruction Type:Provider Instructions for Treatment How to access health informa tion online Indication:Nonsmoker Start:09-Feb-2019 Instruction Type:Patient Education How to access health informa tion online - Detail Indication:Nonsmoker Start:09-Feb-2019 Instruction Type:Patient Education Patient Instructions Indication:Nonsmoker Start:09-Feb-2019 Instruction Type:Provider Instructions for Treatment How to access health informa tion online Indication:BMI 50.0-59.9, adult Start:22-Jan-2019 Instruction Type:Patient Education How to access health informa tion online - Detail Indication:BMI 50.0-59.9, adult Start:22-Jan-2019 Instruction Type:Patient Education Patient Instructions Indication:BMI 50.0-59.9, adult Start:22-Jan-2019 Instruction Type:Provider Instructions for Treatment How to access health informa tion online Indication:Nonsmoker Start:05-Oct-2018 Instruction Type:Patient Education How to access health informa tion online - Detail Indication:Nonsmoker Start:05-Oct-2018 Instruction Type:Patient Education Patient Instructions Indication:Nonsmoker Start:05-Oct-2018 Instruction Type:Provider Instructions for Treatment How to access health informa tion online Indication:BMI 50.0-59.9, adult Start:13-Jan-2018 Instruction Type:Patient Education How to access health informa tion online - Detail Indication:BMI 50.0-59.9, adult Start:13-Jan-2018 Instruction Type:Patient Education Patient Instructions Indication:BMI 50.0-59.9, adult Start:13-Jan-2018 Instruction Type:Provider Instructions for Treatment How to access health informa tion online Indication:Nonsmoker Start:06-Jan-2018 Instruction Type:Patient Education How to access health informa tion online - Detail Indication:Nonsmoker Start:06-Jan-2018 Instruction Type:Patient Education Patient Instructions Indication:Nonsmoker Start:06-Jan-2018 Instruction Type:Provider Instructions for Treatment [facility]; [facility] Work Phone: Instructions* Name Dates Details Patient Instructions Indication:Non-smoker Start:09-Nov-2021 Instruction Type:Provider Instructions for Treatment How to Access Health Informa tion Online using Patient Portal and [employer] Apps Indication:Non-smoker Start:09-Nov-2021 Instruction Type:Patient Education Patient Instructions Indication:Non-smoker Start:12-Oct-2021 Instruction Type:Provider Instructions for Treatment How to Access Health Informa tion Online using Patient Portal and [employer] Apps Indication:Non-smoker Start:12-Oct-2021 Instruction Type:Patient Education Patient Instructions Indication:Non-smoker Start:21-Aug-2021 Instruction Type:Provider Instructions for Treatment How to Access Health Informa tion Online using Patient Portal and [employer] Apps Indication:Non-smoker Start:21-Aug-2021 Instruction Type:Patient Education Patient Instructions Indication:BMI 45.0-49.9, adult Start:29-Jul-2021 Instruction Type:Provider Instructions for Treatment How to Access Health Informa tion Online using Patient Portal and [employer] Apps Indication:BMI 45.0-49.9, adult Start:29-Jul-2021 Instruction Type:Patient Education Patient Instructions Indication:Hypothyroid Start:19-Jul-2021 Instruction Type:Provider Instructions for Treatment Patient Instructions Indication:Non-smoker Start:13-Jul-2021 Instruction Type:Provider Instructions for Treatment How to Access Health Informa tion Online using Patient Portal and [employer] Apps Indication:Non-smoker Start:13-Jul-2021 Instruction Type:Patient Education Patient Instructions Indication:BMI 45.0-49.9, adult Start:25-May-2021 Instruction Type:Provider Instructions for Treatment How to Access Health Informa tion Online using Patient Portal and [employer] Apps Indication:BMI 45.0-49.9, adult Start:25-May-2021 Instruction Type:Patient Education Patient Instructions Indication:Obesity, morbid (more than 100 lbs over ideal weight or BMI > 40) Start:18-Mar-2021 Instruction Type:Provider Instructions for Treatment How to Access Health Informa tion Online using Patient Portal and [employer] Apps Indication:Obesity, morbid (more than 100 lbs over ideal weight or BMI > 40) Start:18-Mar-2021 Instruction Type:Patient Education Patient Instructions Indication:Non-smoker Start:25-Feb-2021 Instruction Type:Provider Instructions for Treatment How to Access Health Informa tion Online using Patient Portal and [employer] Apps Indication:Non-smoker Start:25-Feb-2021 Instruction Type:Patient Education obesity counseling Indication:LUIZA (obstructive sleep apnea) Start:12-Dec-2020 Instruction Type:Provider Instructions for Treatment Patient Instructions Indication:BMI 50.0-59.9, adult Start:12-Dec-2020 Instruction Type:Provider Instructions for Treatment How to Access Health Informa tion Online using Patient Portal and [employer] Apps Indication:BMI 50.0-59.9, adult Start:12-Dec-2020 Instruction Type:Patient Education Patient Instructions Indication:Non-smoker Start:04-Sep-2020 Instruction Type:Provider Instructions for Treatment How to Access Health Informa tion Online using Patient Portal and [employer] Apps Indication:Non-smoker Start:04-Sep-2020 Instruction Type:Patient Education How to access health informa tion online Indication:Non-smoker Start:05-May-2020 Instruction Type:Patient Education How to access health informa tion online - Detail Indication:Non-smoker Start:05-May-2020 Instruction Type:Patient Education Patient Instructions Indication:Non-smoker Start:05-May-2020 Instruction Type:Provider Instructions for Treatment How to access health informa tion online Indication:Non-smoker Start:22-Apr-2020 Instruction Type:Patient Education How to access health informa tion online - Detail Indication:Non-smoker Start:22-Apr-2020 Instruction Type:Patient Education Patient Instructions Indication:Non-smoker Start:22-Apr-2020 Instruction Type:Provider Instructions for Treatment How to access health informa tion online Indication:Urinary frequency Start:27-Feb-2020 Instruction Type:Patient Education How to access health informa tion online - Detail Indication:Urinary frequency Start:27-Feb-2020 Instruction Type:Patient Education Patient Instructions Indication:Urinary frequency Start:27-Feb-2020 Instruction Type:Provider Instructions for Treatment How to access health informa tion online Indication:Non-smoker Start:15-Feb-2020 Instruction Type:Patient Education How to access health informa tion online - Detail Indication:Non-smoker Start:15-Feb-2020 Instruction Type:Patient Education Patient Instructions Indication:Non-smoker Start:15-Feb-2020 Instruction Type:Provider Instructions for Treatment obesity counseling Indication:Hypertension Start:03-Dec-2019 Instruction Type:Provider Instructions for Treatment How to access health informa tion online Indication:BMI 45.0-49.9, adult Start:14-Nov-2019 Instruction Type:Patient Education How to access health informa tion online - Detail Indication:BMI 45.0-49.9, adult Start:14-Nov-2019 Instruction Type:Patient Education Patient Instructions Indication:BMI 45.0-49.9, adult Start:14-Nov-2019 Instruction Type:Provider Instructions for Treatment How to access health informa tion online Indication:Non-smoker Start:01-Nov-2019 Instruction Type:Patient Education How to access health informa tion online - Detail Indication:Non-smoker Start:01-Nov-2019 Instruction Type:Patient Education Patient Instructions Indication:Non-smoker Start:01-Nov-2019 Instruction Type:Provider Instructions for Treatment How to access health informa tion online Indication:Nonsmoker Start:15-Oct-2019 Instruction Type:Patient Education How to access health informa tion online - Detail Indication:Nonsmoker Start:15-Oct-2019 Instruction Type:Patient Education Patient Instructions Indication:Nonsmoker Start:15-Oct-2019 Instruction Type:Provider Instructions for Treatment How to access health informa tion online - Detail Indication:BMI 50.0-59.9, adult Start:02-Apr-2019 Instruction Type:Patient Education How to access health informa tion online Indication:BMI 50.0-59.9, adult Start:02-Apr-2019 Instruction Type:Patient Education Patient Instructions Indication:BMI 50.0-59.9, adult Start:02-Apr-2019 Instruction Type:Provider Instructions for Treatment How to access health informa tion online Indication:BMI 50.0-59.9, adult Start:15-Feb-2019 Instruction Type:Patient Education How to access health informa tion online - Detail Indication:BMI 50.0-59.9, adult Start:15-Feb-2019 Instruction Type:Patient Education Patient Instructions Indication:BMI 50.0-59.9, adult Start:15-Feb-2019 Instruction Type:Provider Instructions for Treatment How to access health informa tion online Indication:Nonsmoker Start:09-Feb-2019 Instruction Type:Patient Education How to access health informa tion online - Detail Indication:Nonsmoker Start:09-Feb-2019 Instruction Type:Patient Education Patient Instructions Indication:Nonsmoker Start:09-Feb-2019 Instruction Type:Provider Instructions for Treatment How to access health informa tion online Indication:BMI 50.0-59.9, adult Start:22-Jan-2019 Instruction Type:Patient Education How to access health informa tion online - Detail Indication:BMI 50.0-59.9, adult Start:22-Jan-2019 Instruction Type:Patient Education Patient Instructions Indication:BMI 50.0-59.9, adult Start:22-Jan-2019 Instruction Type:Provider Instructions for Treatment How to access health informa tion online Indication:Nonsmoker Start:05-Oct-2018 Instruction Type:Patient Education How to access health informa tion online - Detail Indication:Nonsmoker Start:05-Oct-2018 Instruction Type:Patient Education Patient Instructions Indication:Nonsmoker Start:05-Oct-2018 Instruction Type:Provider Instructions for Treatment How to access health informa tion online Indication:BMI 50.0-59.9, adult Start:13-Jan-2018 Instruction Type:Patient Education How to access health informa tion online - Detail Indication:BMI 50.0-59.9, adult Start:13-Jan-2018 Instruction Type:Patient Education Patient Instructions Indication:BMI 50.0-59.9, adult Start:13-Jan-2018 Instruction Type:Provider Instructions for Treatment How to access health informa tion online Indication:Nonsmoker Start:06-Jan-2018 Instruction Type:Patient Education How to access health informa tion online - Detail Indication:Nonsmoker Start:06-Jan-2018 Instruction Type:Patient Education Patient Instructions Indication:Nonsmoker Start:06-Jan-2018 Instruction Type:Provider Instructions for Treatment [facility]; [facility] Work Phone: Instructions* Name Dates Details Patient Instructions Indication:Non-smoker Start:09-Nov-2021 Instruction Type:Provider Instructions for Treatment How to Access Health Informa tion Online using Patient Portal and [employer] Apps Indication:Non-smoker Start:09-Nov-2021 Instruction Type:Patient Education Patient Instructions Indication:Non-smoker Start:12-Oct-2021 Instruction Type:Provider Instructions for Treatment How to Access Health Informa tion Online using Patient Portal and [employer] Apps Indication:Non-smoker Start:12-Oct-2021 Instruction Type:Patient Education Patient Instructions Indication:Non-smoker Start:21-Aug-2021 Instruction Type:Provider Instructions for Treatment How to Access Health Informa tion Online using Patient Portal and [employer] Apps Indication:Non-smoker Start:21-Aug-2021 Instruction Type:Patient Education Patient Instructions Indication:BMI 45.0-49.9, adult Start:29-Jul-2021 Instruction Type:Provider Instructions for Treatment How to Access Health Informa tion Online using Patient Portal and [employer] Apps Indication:BMI 45.0-49.9, adult Start:29-Jul-2021 Instruction Type:Patient Education Patient Instructions Indication:Hypothyroid Start:19-Jul-2021 Instruction Type:Provider Instructions for Treatment Patient Instructions Indication:Non-smoker Start:13-Jul-2021 Instruction Type:Provider Instructions for Treatment How to Access Health Informa tion Online using Patient Portal and [employer] Apps Indication:Non-smoker Start:13-Jul-2021 Instruction Type:Patient Education Patient Instructions Indication:BMI 45.0-49.9, adult Start:25-May-2021 Instruction Type:Provider Instructions for Treatment How to Access Health Informa tion Online using Patient Portal and [employer] Apps Indication:BMI 45.0-49.9, adult Start:25-May-2021 Instruction Type:Patient Education Patient Instructions Indication:Obesity, morbid (more than 100 lbs over ideal weight or BMI > 40) Start:18-Mar-2021 Instruction Type:Provider Instructions for Treatment How to Access Health Informa tion Online using Patient Portal and [employer] Apps Indication:Obesity, morbid (more than 100 lbs over ideal weight or BMI > 40) Start:18-Mar-2021 Instruction Type:Patient Education Patient Instructions Indication:Non-smoker Start:25-Feb-2021 Instruction Type:Provider Instructions for Treatment How to Access Health Informa tion Online using Patient Portal and [employer] Apps Indication:Non-smoker Start:25-Feb-2021 Instruction Type:Patient Education obesity counseling Indication:LUIZA (obstructive sleep apnea) Start:12-Dec-2020 Instruction Type:Provider Instructions for Treatment Patient Instructions Indication:BMI 50.0-59.9, adult Start:12-Dec-2020 Instruction Type:Provider Instructions for Treatment How to Access Health Informa tion Online using Patient Portal and [employer] Apps Indication:BMI 50.0-59.9, adult Start:12-Dec-2020 Instruction Type:Patient Education Patient Instructions Indication:Non-smoker Start:04-Sep-2020 Instruction Type:Provider Instructions for Treatment How to Access Health Informa tion Online using Patient Portal and [employer] Apps Indication:Non-smoker Start:04-Sep-2020 Instruction Type:Patient Education How to access health informa tion online Indication:Non-smoker Start:05-May-2020 Instruction Type:Patient Education How to access health informa tion online - Detail Indication:Non-smoker Start:05-May-2020 Instruction Type:Patient Education Patient Instructions Indication:Non-smoker Start:05-May-2020 Instruction Type:Provider Instructions for Treatment How to access health informa tion online Indication:Non-smoker Start:22-Apr-2020 Instruction Type:Patient Education How to access health informa tion online - Detail Indication:Non-smoker Start:22-Apr-2020 Instruction Type:Patient Education Patient Instructions Indication:Non-smoker Start:22-Apr-2020 Instruction Type:Provider Instructions for Treatment How to access health informa tion online Indication:Urinary frequency Start:27-Feb-2020 Instruction Type:Patient Education How to access health informa tion online - Detail Indication:Urinary frequency Start:27-Feb-2020 Instruction Type:Patient Education Patient Instructions Indication:Urinary frequency Start:27-Feb-2020 Instruction Type:Provider Instructions for Treatment How to access health informa tion online Indication:Non-smoker Start:15-Feb-2020 Instruction Type:Patient Education How to access health informa tion online - Detail Indication:Non-smoker Start:15-Feb-2020 Instruction Type:Patient Education Patient Instructions Indication:Non-smoker Start:15-Feb-2020 Instruction Type:Provider Instructions for Treatment obesity counseling Indication:Hypertension Start:03-Dec-2019 Instruction Type:Provider Instructions for Treatment How to access health informa tion online Indication:BMI 45.0-49.9, adult Start:14-Nov-2019 Instruction Type:Patient Education How to access health informa tion online - Detail Indication:BMI 45.0-49.9, adult Start:14-Nov-2019 Instruction Type:Patient Education Patient Instructions Indication:BMI 45.0-49.9, adult Start:14-Nov-2019 Instruction Type:Provider Instructions for Treatment How to access health informa tion online Indication:Non-smoker Start:01-Nov-2019 Instruction Type:Patient Education How to access health informa tion online - Detail Indication:Non-smoker Start:01-Nov-2019 Instruction Type:Patient Education Patient Instructions Indication:Non-smoker Start:01-Nov-2019 Instruction Type:Provider Instructions for Treatment How to access health informa tion online Indication:Nonsmoker Start:15-Oct-2019 Instruction Type:Patient Education How to access health informa tion online - Detail Indication:Nonsmoker Start:15-Oct-2019 Instruction Type:Patient Education Patient Instructions Indication:Nonsmoker Start:15-Oct-2019 Instruction Type:Provider Instructions for Treatment How to access health informa tion online - Detail Indication:BMI 50.0-59.9, adult Start:02-Apr-2019 Instruction Type:Patient Education How to access health informa tion online Indication:BMI 50.0-59.9, adult Start:02-Apr-2019 Instruction Type:Patient Education Patient Instructions Indication:BMI 50.0-59.9, adult Start:02-Apr-2019 Instruction Type:Provider Instructions for Treatment How to access health informa tion online Indication:BMI 50.0-59.9, adult Start:15-Feb-2019 Instruction Type:Patient Education How to access health informa tion online - Detail Indication:BMI 50.0-59.9, adult Start:15-Feb-2019 Instruction Type:Patient Education Patient Instructions Indication:BMI 50.0-59.9, adult Start:15-Feb-2019 Instruction Type:Provider Instructions for Treatment How to access health informa tion online Indication:Nonsmoker Start:09-Feb-2019 Instruction Type:Patient Education How to access health informa tion online - Detail Indication:Nonsmoker Start:09-Feb-2019 Instruction Type:Patient Education Patient Instructions Indication:Nonsmoker Start:09-Feb-2019 Instruction Type:Provider Instructions for Treatment How to access health informa tion online Indication:BMI 50.0-59.9, adult Start:22-Jan-2019 Instruction Type:Patient Education How to access health informa tion online - Detail Indication:BMI 50.0-59.9, adult Start:22-Jan-2019 Instruction Type:Patient Education Patient Instructions Indication:BMI 50.0-59.9, adult Start:22-Jan-2019 Instruction Type:Provider Instructions for Treatment How to access health informa tion online Indication:Nonsmoker Start:05-Oct-2018 Instruction Type:Patient Education How to access health informa tion online - Detail Indication:Nonsmoker Start:05-Oct-2018 Instruction Type:Patient Education Patient Instructions Indication:Nonsmoker Start:05-Oct-2018 Instruction Type:Provider Instructions for Treatment How to access health informa tion online Indication:BMI 50.0-59.9, adult Start:13-Jan-2018 Instruction Type:Patient Education How to access health informa tion online - Detail Indication:BMI 50.0-59.9, adult Start:13-Jan-2018 Instruction Type:Patient Education Patient Instructions Indication:BMI 50.0-59.9, adult Start:13-Jan-2018 Instruction Type:Provider Instructions for Treatment How to access health informa tion online Indication:Nonsmoker Start:06-Jan-2018 Instruction Type:Patient Education How to access health informa tion online - Detail Indication:Nonsmoker Start:06-Jan-2018 Instruction Type:Patient Education Patient Instructions Indication:Nonsmoker Start:06-Jan-2018 Instruction Type:Provider Instructions for Treatment [facility]; [facility] Work Phone: Instructions* Name Dates Details Patient Instructions Indication:Non-smoker Start:09-Nov-2021 Instruction Type:Provider Instructions for Treatment How to Access Health Informa tion Online using Patient Portal and [employer] Apps Indication:Non-smoker Start:09-Nov-2021 Instruction Type:Patient Education Patient Instructions Indication:Non-smoker Start:12-Oct-2021 Instruction Type:Provider Instructions for Treatment How to Access Health Informa tion Online using Patient Portal and [employer] Apps Indication:Non-smoker Start:12-Oct-2021 Instruction Type:Patient Education Patient Instructions Indication:Non-smoker Start:21-Aug-2021 Instruction Type:Provider Instructions for Treatment How to Access Health Informa tion Online using Patient Portal and [employer] Indication:Non-smoker Start:21-Aug-2021 Instruction Type:Patient Education Patient Instructions Indication:BMI 45.0-49.9, adult Start:29-Jul-2021 Instruction Type:Provider Instructions for Treatment How to Access Health Informa tion Online using Patient Portal and [employer] Apps Indication:BMI 45.0-49.9, adult Start:29-Jul-2021 Instruction Type:Patient Education Patient Instructions Indication:Hypothyroid Start:19-Jul-2021 Instruction Type:Provider Instructions for Treatment Patient Instructions Indication:Non-smoker Start:13-Jul-2021 Instruction Type:Provider Instructions for Treatment How to Access Health Informa tion Online using Patient Portal and [employer] Apps Indication:Non-smoker Start:13-Jul-2021 Instruction Type:Patient Education Patient Instructions Indication:BMI 45.0-49.9, adult Start:25-May-2021 Instruction Type:Provider Instructions for Treatment How to Access Health Informa tion Online using Patient Portal and [employer] Apps Indication:BMI 45.0-49.9, adult Start:25-May-2021 Instruction Type:Patient Education Patient Instructions Indication:Obesity, morbid (more than 100 lbs over ideal weight or BMI > 40) Start:18-Mar-2021 Instruction Type:Provider Instructions for Treatment How to Access Health Informa tion Online using Patient Portal and [employer] Apps Indication:Obesity, morbid (more than 100 lbs over ideal weight or BMI > 40) Start:18-Mar-2021 Instruction Type:Patient Education Patient Instructions Indication:Non-smoker Start:25-Feb-2021 Instruction Type:Provider Instructions for Treatment How to Access Health Informa tion Online using Patient Portal and [employer] Apps Indication:Non-smoker Start:25-Feb-2021 Instruction Type:Patient Education obesity counseling Indication:LUIZA (obstructive sleep apnea) Start:12-Dec-2020 Instruction Type:Provider Instructions for Treatment Patient Instructions Indication:BMI 50.0-59.9, adult Start:12-Dec-2020 Instruction Type:Provider Instructions for Treatment How to Access Health Informa tion Online using Patient Portal and [employer] Apps Indication:BMI 50.0-59.9, adult Start:12-Dec-2020 Instruction Type:Patient Education Patient Instructions Indication:Non-smoker Start:04-Sep-2020 Instruction Type:Provider Instructions for Treatment How to Access Health Informa tion Online using Patient Portal and [employer] Apps Indication:Non-smoker Start:04-Sep-2020 Instruction Type:Patient Education How to access health informa tion online Indication:Non-smoker Start:05-May-2020 Instruction Type:Patient Education How to access health informa tion online - Detail Indication:Non-smoker Start:05-May-2020 Instruction Type:Patient Education Patient Instructions Indication:Non-smoker Start:05-May-2020 Instruction Type:Provider Instructions for Treatment How to access health informa tion online Indication:Non-smoker Start:22-Apr-2020 Instruction Type:Patient Education How to access health informa tion online - Detail Indication:Non-smoker Start:22-Apr-2020 Instruction Type:Patient Education Patient Instructions Indication:Non-smoker Start:22-Apr-2020 Instruction Type:Provider Instructions for Treatment How to access health informa tion online Indication:Urinary frequency Start:27-Feb-2020 Instruction Type:Patient Education How to access health informa tion online - Detail Indication:Urinary frequency Start:27-Feb-2020 Instruction Type:Patient Education Patient Instructions Indication:Urinary frequency Start:27-Feb-2020 Instruction Type:Provider Instructions for Treatment How to access health informa tion online Indication:Non-smoker Start:15-Feb-2020 Instruction Type:Patient Education How to access health informa tion online - Detail Indication:Non-smoker Start:15-Feb-2020 Instruction Type:Patient Education Patient Instructions Indication:Non-smoker Start:15-Feb-2020 Instruction Type:Provider Instructions for Treatment obesity counseling Indication:Hypertension Start:03-Dec-2019 Instruction Type:Provider Instructions for Treatment How to access health informa tion online Indication:BMI 45.0-49.9, adult Start:14-Nov-2019 Instruction Type:Patient Education How to access health informa tion online - Detail Indication:BMI 45.0-49.9, adult Start:14-Nov-2019 Instruction Type:Patient Education Patient Instructions Indication:BMI 45.0-49.9, adult Start:14-Nov-2019 Instruction Type:Provider Instructions for Treatment How to access health informa tion online Indication:Non-smoker Start:01-Nov-2019 Instruction Type:Patient Education How to access health informa tion online - Detail Indication:Non-smoker Start:01-Nov-2019 Instruction Type:Patient Education Patient Instructions Indication:Non-smoker Start:01-Nov-2019 Instruction Type:Provider Instructions for Treatment How to access health informa tion online Indication:Nonsmoker Start:15-Oct-2019 Instruction Type:Patient Education How to access health informa tion online - Detail Indication:Nonsmoker Start:15-Oct-2019 Instruction Type:Patient Education Patient Instructions Indication:Nonsmoker Start:15-Oct-2019 Instruction Type:Provider Instructions for Treatment How to access health informa tion online - Detail Indication:BMI 50.0-59.9, adult Start:02-Apr-2019 Instruction Type:Patient Education How to access health informa tion online Indication:BMI 50.0-59.9, adult Start:02-Apr-2019 Instruction Type:Patient Education Patient Instructions Indication:BMI 50.0-59.9, adult Start:02-Apr-2019 Instruction Type:Provider Instructions for Treatment How to access health informa tion online Indication:BMI 50.0-59.9, adult Start:15-Feb-2019 Instruction Type:Patient Education How to access health informa tion online - Detail Indication:BMI 50.0-59.9, adult Start:15-Feb-2019 Instruction Type:Patient Education Patient Instructions Indication:BMI 50.0-59.9, adult Start:15-Feb-2019 Instruction Type:Provider Instructions for Treatment How to access health informa tion online Indication:Nonsmoker Start:09-Feb-2019 Instruction Type:Patient Education How to access health informa tion online - Detail Indication:Nonsmoker Start:09-Feb-2019 Instruction Type:Patient Education Patient Instructions Indication:Nonsmoker Start:09-Feb-2019 Instruction Type:Provider Instructions for Treatment How to access health informa tion online Indication:BMI 50.0-59.9, adult Start:22-Jan-2019 Instruction Type:Patient Education How to access health informa tion online - Detail Indication:BMI 50.0-59.9, adult Start:22-Jan-2019 Instruction Type:Patient Education Patient Instructions Indication:BMI 50.0-59.9, adult Start:22-Jan-2019 Instruction Type:Provider Instructions for Treatment How to access health informa tion online Indication:Nonsmoker Start:05-Oct-2018 Instruction Type:Patient Education How to access health informa tion online - Detail Indication:Nonsmoker Start:05-Oct-2018 Instruction Type:Patient Education Patient Instructions Indication:Nonsmoker Start:05-Oct-2018 Instruction Type:Provider Instructions for Treatment How to access health informa tion online Indication:BMI 50.0-59.9, adult Start:13-Jan-2018 Instruction Type:Patient Education How to access health informa tion online - Detail Indication:BMI 50.0-59.9, adult Start:13-Jan-2018 Instruction Type:Patient Education Patient Instructions Indication:BMI 50.0-59.9, adult Start:13-Jan-2018 Instruction Type:Provider Instructions for Treatment How to access health informa tion online Indication:Nonsmoker Start:06-Jan-2018 Instruction Type:Patient Education How to access health informa tion online - Detail Indication:Nonsmoker Start:06-Jan-2018 Instruction Type:Patient Education Patient Instructions Indication:Nonsmoker Start:06-Jan-2018 Instruction Type:Provider Instructions for Treatment [facility]; [facility] Work Phone: Instructions* Name Dates Details Patient Instructions Indication:Non-smoker Start:09-Nov-2021 Instruction Type:Provider Instructions for Treatment How to Access Health Informa tion Online using Patient Portal and [employer] Apps Indication:Non-smoker Start:09-Nov-2021 Instruction Type:Patient Education Patient Instructions Indication:Non-smoker Start:12-Oct-2021 Instruction Type:Provider Instructions for Treatment How to Access Health Informa tion Online using Patient Portal and [employer] Apps Indication:Non-smoker Start:12-Oct-2021 Instruction Type:Patient Education Patient Instructions Indication:Non-smoker Start:21-Aug-2021 Instruction Type:Provider Instructions for Treatment How to Access Health Informa tion Online using Patient Portal and [employer] Apps Indication:Non-smoker Start:21-Aug-2021 Instruction Type:Patient Education Patient Instructions Indication:BMI 45.0-49.9, adult Start:29-Jul-2021 Instruction Type:Provider Instructions for Treatment How to Access Health Informa tion Online using Patient Portal and [employer] Indication:BMI 45.0-49.9, adult Start:29-Jul-2021 Instruction Type:Patient Education Patient Instructions Indication:Hypothyroid Start:19-Jul-2021 Instruction Type:Provider Instructions for Treatment Patient Instructions Indication:Non-smoker Start:13-Jul-2021 Instruction Type:Provider Instructions for Treatment How to Access Health Informa tion Online using Patient Portal and [employer] Apps Indication:Non-smoker Start:13-Jul-2021 Instruction Type:Patient Education Patient Instructions Indication:BMI 45.0-49.9, adult Start:25-May-2021 Instruction Type:Provider Instructions for Treatment How to Access Health Informa tion Online using Patient Portal and [employer] Indication:BMI 45.0-49.9, adult Start:25-May-2021 Instruction Type:Patient Education Patient Instructions Indication:Obesity, morbid (more than 100 lbs over ideal weight or BMI > 40) Start:18-Mar-2021 Instruction Type:Provider Instructions for Treatment How to Access Health Informa tion Online using Patient Portal and [employer] Apps Indication:Obesity, morbid (more than 100 lbs over ideal weight or BMI > 40) Start:18-Mar-2021 Instruction Type:Patient Education Patient Instructions Indication:Non-smoker Start:25-Feb-2021 Instruction Type:Provider Instructions for Treatment How to Access Health Informa tion Online using Patient Portal and [employer] Apps Indication:Non-smoker Start:25-Feb-2021 Instruction Type:Patient Education obesity counseling Indication:LUIZA (obstructive sleep apnea) Start:12-Dec-2020 Instruction Type:Provider Instructions for Treatment Patient Instructions Indication:BMI 50.0-59.9, adult Start:12-Dec-2020 Instruction Type:Provider Instructions for Treatment How to Access Health Informa tion Online using Patient Portal and [employer] Apps Indication:BMI 50.0-59.9, adult Start:12-Dec-2020 Instruction Type:Patient Education Patient Instructions Indication:Non-smoker Start:04-Sep-2020 Instruction Type:Provider Instructions for Treatment How to Access Health Informa tion Online using Patient Portal and [employer] Apps Indication:Non-smoker Start:04-Sep-2020 Instruction Type:Patient Education How to access health informa tion online Indication:Non-smoker Start:05-May-2020 Instruction Type:Patient Education How to access health informa tion online - Detail Indication:Non-smoker Start:05-May-2020 Instruction Type:Patient Education Patient Instructions Indication:Non-smoker Start:05-May-2020 Instruction Type:Provider Instructions for Treatment How to access health informa tion online Indication:Non-smoker Start:22-Apr-2020 Instruction Type:Patient Education How to access health informa tion online - Detail Indication:Non-smoker Start:22-Apr-2020 Instruction Type:Patient Education Patient Instructions Indication:Non-smoker Start:22-Apr-2020 Instruction Type:Provider Instructions for Treatment How to access health informa tion online Indication:Urinary frequency Start:27-Feb-2020 Instruction Type:Patient Education How to access health informa tion online - Detail Indication:Urinary frequency Start:27-Feb-2020 Instruction Type:Patient Education Patient Instructions Indication:Urinary frequency Start:27-Feb-2020 Instruction Type:Provider Instructions for Treatment How to access health informa tion online Indication:Non-smoker Start:15-Feb-2020 Instruction Type:Patient Education How to access health informa tion online - Detail Indication:Non-smoker Start:15-Feb-2020 Instruction Type:Patient Education Patient Instructions Indication:Non-smoker Start:15-Feb-2020 Instruction Type:Provider Instructions for Treatment obesity counseling Indication:Hypertension Start:03-Dec-2019 Instruction Type:Provider Instructions for Treatment How to access health informa tion online Indication:BMI 45.0-49.9, adult Start:14-Nov-2019 Instruction Type:Patient Education How to access health informa tion online - Detail Indication:BMI 45.0-49.9, adult Start:14-Nov-2019 Instruction Type:Patient Education Patient Instructions Indication:BMI 45.0-49.9, adult Start:14-Nov-2019 Instruction Type:Provider Instructions for Treatment How to access health informa tion online Indication:Non-smoker Start:01-Nov-2019 Instruction Type:Patient Education How to access health informa tion online - Detail Indication:Non-smoker Start:01-Nov-2019 Instruction Type:Patient Education Patient Instructions Indication:Non-smoker Start:01-Nov-2019 Instruction Type:Provider Instructions for Treatment How to access health informa tion online Indication:Nonsmoker Start:15-Oct-2019 Instruction Type:Patient Education How to access health informa tion online - Detail Indication:Nonsmoker Start:15-Oct-2019 Instruction Type:Patient Education Patient Instructions Indication:Nonsmoker Start:15-Oct-2019 Instruction Type:Provider Instructions for Treatment How to access health informa tion online - Detail Indication:BMI 50.0-59.9, adult Start:02-Apr-2019 Instruction Type:Patient Education How to access health informa tion online Indication:BMI 50.0-59.9, adult Start:02-Apr-2019 Instruction Type:Patient Education Patient Instructions Indication:BMI 50.0-59.9, adult Start:02-Apr-2019 Instruction Type:Provider Instructions for Treatment How to access health informa tion online Indication:BMI 50.0-59.9, adult Start:15-Feb-2019 Instruction Type:Patient Education How to access health informa tion online - Detail Indication:BMI 50.0-59.9, adult Start:15-Feb-2019 Instruction Type:Patient Education Patient Instructions Indication:BMI 50.0-59.9, adult Start:15-Feb-2019 Instruction Type:Provider Instructions for Treatment How to access health informa tion online Indication:Nonsmoker Start:09-Feb-2019 Instruction Type:Patient Education How to access health informa tion online - Detail Indication:Nonsmoker Start:09-Feb-2019 Instruction Type:Patient Education Patient Instructions Indication:Nonsmoker Start:09-Feb-2019 Instruction Type:Provider Instructions for Treatment How to access health informa tion online Indication:BMI 50.0-59.9, adult Start:22-Jan-2019 Instruction Type:Patient Education How to access health informa tion online - Detail Indication:BMI 50.0-59.9, adult Start:22-Jan-2019 Instruction Type:Patient Education Patient Instructions Indication:BMI 50.0-59.9, adult Start:22-Jan-2019 Instruction Type:Provider Instructions for Treatment How to access health informa tion online Indication:Nonsmoker Start:05-Oct-2018 Instruction Type:Patient Education How to access health informa tion online - Detail Indication:Nonsmoker Start:05-Oct-2018 Instruction Type:Patient Education Patient Instructions Indication:Nonsmoker Start:05-Oct-2018 Instruction Type:Provider Instructions for Treatment How to access health informa tion online Indication:BMI 50.0-59.9, adult Start:13-Jan-2018 Instruction Type:Patient Education How to access health informa tion online - Detail Indication:BMI 50.0-59.9, adult Start:13-Jan-2018 Instruction Type:Patient Education Patient Instructions Indication:BMI 50.0-59.9, adult Start:13-Jan-2018 Instruction Type:Provider Instructions for Treatment How to access health informa tion online Indication:Nonsmoker Start:06-Jan-2018 Instruction Type:Patient Education How to access health informa tion online - Detail Indication:Nonsmoker Start:06-Jan-2018 Instruction Type:Patient Education Patient Instructions Indication:Nonsmoker Start:06-Jan-2018 Instruction Type:Provider Instructions for Treatment [facility]; [facility] Work Phone: Instructions* Name Dates Details Patient Instructions Indication:Non-smoker Start:09-Nov-2021 Instruction Type:Provider Instructions for Treatment How to Access Health Informa tion Online using Patient Portal and [employer] Indication:Non-smoker Start:09-Nov-2021 Instruction Type:Patient Education Patient Instructions Indication:Non-smoker Start:12-Oct-2021 Instruction Type:Provider Instructions for Treatment How to Access Health Informa tion Online using Patient Portal and [employer] Apps Indication:Non-smoker Start:12-Oct-2021 Instruction Type:Patient Education Patient Instructions Indication:Non-smoker Start:21-Aug-2021 Instruction Type:Provider Instructions for Treatment How to Access Health Informa tion Online using Patient Portal and [employer] Indication:Non-smoker Start:21-Aug-2021 Instruction Type:Patient Education Patient Instructions Indication:BMI 45.0-49.9, adult Start:29-Jul-2021 Instruction Type:Provider Instructions for Treatment How to Access Health Informa tion Online using Patient Portal and [employer] Indication:BMI 45.0-49.9, adult Start:29-Jul-2021 Instruction Type:Patient Education Patient Instructions Indication:Hypothyroid Start:19-Jul-2021 Instruction Type:Provider Instructions for Treatment Patient Instructions Indication:Non-smoker Start:13-Jul-2021 Instruction Type:Provider Instructions for Treatment How to Access Health Informa tion Online using Patient Portal and [employer] Indication:Non-smoker Start:13-Jul-2021 Instruction Type:Patient Education Patient Instructions Indication:BMI 45.0-49.9, adult Start:25-May-2021 Instruction Type:Provider Instructions for Treatment How to Access Health Informa tion Online using Patient Portal and [employer] Indication:BMI 45.0-49.9, adult Start:25-May-2021 Instruction Type:Patient Education Patient Instructions Indication:Obesity, morbid (more than 100 lbs over ideal weight or BMI > 40) Start:18-Mar-2021 Instruction Type:Provider Instructions for Treatment How to Access Health Informa tion Online using Patient Portal and [employer] Indication:Obesity, morbid (more than 100 lbs over ideal weight or BMI > 40) Start:18-Mar-2021 Instruction Type:Patient Education Patient Instructions Indication:Non-smoker Start:25-Feb-2021 Instruction Type:Provider Instructions for Treatment How to Access Health Informa tion Online using Patient Portal and [employer] Indication:Non-smoker Start:25-Feb-2021 Instruction Type:Patient Education obesity counseling Indication:LUIZA (obstructive sleep apnea) Start:12-Dec-2020 Instruction Type:Provider Instructions for Treatment Patient Instructions Indication:BMI 50.0-59.9, adult Start:12-Dec-2020 Instruction Type:Provider Instructions for Treatment How to Access Health Informa tion Online using Patient Portal and [employer] Indication:BMI 50.0-59.9, adult Start:12-Dec-2020 Instruction Type:Patient Education Patient Instructions Indication:Non-smoker Start:04-Sep-2020 Instruction Type:Provider Instructions for Treatment How to Access Health Informa tion Online using Patient Portal and [employer] Indication:Non-smoker Start:04-Sep-2020 Instruction Type:Patient Education How to access health informa tion online Indication:Non-smoker Start:05-May-2020 Instruction Type:Patient Education How to access health informa tion online - Detail Indication:Non-smoker Start:05-May-2020 Instruction Type:Patient Education Patient Instructions Indication:Non-smoker Start:05-May-2020 Instruction Type:Provider Instructions for Treatment How to access health informa tion online Indication:Non-smoker Start:22-Apr-2020 Instruction Type:Patient Education How to access health informa tion online - Detail Indication:Non-smoker Start:22-Apr-2020 Instruction Type:Patient Education Patient Instructions Indication:Non-smoker Start:22-Apr-2020 Instruction Type:Provider Instructions for Treatment How to access health informa tion online Indication:Urinary frequency Start:27-Feb-2020 Instruction Type:Patient Education How to access health informa tion online - Detail Indication:Urinary frequency Start:27-Feb-2020 Instruction Type:Patient Education Patient Instructions Indication:Urinary frequency Start:27-Feb-2020 Instruction Type:Provider Instructions for Treatment How to access health informa tion online Indication:Non-smoker Start:15-Feb-2020 Instruction Type:Patient Education How to access health informa tion online - Detail Indication:Non-smoker Start:15-Feb-2020 Instruction Type:Patient Education Patient Instructions Indication:Non-smoker Start:15-Feb-2020 Instruction Type:Provider Instructions for Treatment obesity counseling Indication:Hypertension Start:03-Dec-2019 Instruction Type:Provider Instructions for Treatment How to access health informa tion online Indication:BMI 45.0-49.9, adult Start:14-Nov-2019 Instruction Type:Patient Education How to access health informa tion online - Detail Indication:BMI 45.0-49.9, adult Start:14-Nov-2019 Instruction Type:Patient Education Patient Instructions Indication:BMI 45.0-49.9, adult Start:14-Nov-2019 Instruction Type:Provider Instructions for Treatment How to access health informa tion online Indication:Non-smoker Start:01-Nov-2019 Instruction Type:Patient Education How to access health informa tion online - Detail Indication:Non-smoker Start:01-Nov-2019 Instruction Type:Patient Education Patient Instructions Indication:Non-smoker Start:01-Nov-2019 Instruction Type:Provider Instructions for Treatment How to access health informa tion online Indication:Nonsmoker Start:15-Oct-2019 Instruction Type:Patient Education How to access health informa tion online - Detail Indication:Nonsmoker Start:15-Oct-2019 Instruction Type:Patient Education Patient Instructions Indication:Nonsmoker Start:15-Oct-2019 Instruction Type:Provider Instructions for Treatment How to access health informa tion online - Detail Indication:BMI 50.0-59.9, adult Start:02-Apr-2019 Instruction Type:Patient Education How to access health informa tion online Indication:BMI 50.0-59.9, adult Start:02-Apr-2019 Instruction Type:Patient Education Patient Instructions Indication:BMI 50.0-59.9, adult Start:02-Apr-2019 Instruction Type:Provider Instructions for Treatment How to access health informa tion online Indication:BMI 50.0-59.9, adult Start:15-Feb-2019 Instruction Type:Patient Education How to access health informa tion online - Detail Indication:BMI 50.0-59.9, adult Start:15-Feb-2019 Instruction Type:Patient Education Patient Instructions Indication:BMI 50.0-59.9, adult Start:15-Feb-2019 Instruction Type:Provider Instructions for Treatment How to access health informa tion online Indication:Nonsmoker Start:09-Feb-2019 Instruction Type:Patient Education How to access health informa tion online - Detail Indication:Nonsmoker Start:09-Feb-2019 Instruction Type:Patient Education Patient Instructions Indication:Nonsmoker Start:09-Feb-2019 Instruction Type:Provider Instructions for Treatment How to access health informa tion online Indication:BMI 50.0-59.9, adult Start:22-Jan-2019 Instruction Type:Patient Education How to access health informa tion online - Detail Indication:BMI 50.0-59.9, adult Start:22-Jan-2019 Instruction Type:Patient Education Patient Instructions Indication:BMI 50.0-59.9, adult Start:22-Jan-2019 Instruction Type:Provider Instructions for Treatment How to access health informa tion online Indication:Nonsmoker Start:05-Oct-2018 Instruction Type:Patient Education How to access health informa tion online - Detail Indication:Nonsmoker Start:05-Oct-2018 Instruction Type:Patient Education Patient Instructions Indication:Nonsmoker Start:05-Oct-2018 Instruction Type:Provider Instructions for Treatment How to access health informa tion online Indication:BMI 50.0-59.9, adult Start:13-Jan-2018 Instruction Type:Patient Education How to access health informa tion online - Detail Indication:BMI 50.0-59.9, adult Start:13-Jan-2018 Instruction Type:Patient Education Patient Instructions Indication:BMI 50.0-59.9, adult Start:13-Jan-2018 Instruction Type:Provider Instructions for Treatment How to access health informa tion online Indication:Nonsmoker Start:06-Jan-2018 Instruction Type:Patient Education How to access health informa tion online - Detail Indication:Nonsmoker Start:06-Jan-2018 Instruction Type:Patient Education Patient Instructions Indication:Nonsmoker Start:06-Jan-2018 Instruction Type:Provider Instructions for Treatment [facility]; [facility] Work Phone: Instructions* Name Dates Details Patient Instructions Indication:Non-smoker Start:09-Nov-2021 Instruction Type:Provider Instructions for Treatment How to Access Health Informa tion Online using Patient Portal and [employer] Apps Indication:Non-smoker Start:09-Nov-2021 Instruction Type:Patient Education Patient Instructions Indication:Non-smoker Start:12-Oct-2021 Instruction Type:Provider Instructions for Treatment How to Access Health Informa tion Online using Patient Portal and [employer] Apps Indication:Non-smoker Start:12-Oct-2021 Instruction Type:Patient Education Patient Instructions Indication:Non-smoker Start:21-Aug-2021 Instruction Type:Provider Instructions for Treatment How to Access Health Informa tion Online using Patient Portal and [employer] Apps Indication:Non-smoker Start:21-Aug-2021 Instruction Type:Patient Education Patient Instructions Indication:BMI 45.0-49.9, adult Start:29-Jul-2021 Instruction Type:Provider Instructions for Treatment How to Access Health Informa tion Online using Patient Portal and [employer] Apps Indication:BMI 45.0-49.9, adult Start:29-Jul-2021 Instruction Type:Patient Education Patient Instructions Indication:Hypothyroid Start:19-Jul-2021 Instruction Type:Provider Instructions for Treatment Patient Instructions Indication:Non-smoker Start:13-Jul-2021 Instruction Type:Provider Instructions for Treatment How to Access Health Informa tion Online using Patient Portal and [employer] Apps Indication:Non-smoker Start:13-Jul-2021 Instruction Type:Patient Education Patient Instructions Indication:BMI 45.0-49.9, adult Start:25-May-2021 Instruction Type:Provider Instructions for Treatment How to Access Health Informa tion Online using Patient Portal and [employer] Apps Indication:BMI 45.0-49.9, adult Start:25-May-2021 Instruction Type:Patient Education Patient Instructions Indication:Obesity, morbid (more than 100 lbs over ideal weight or BMI > 40) Start:18-Mar-2021 Instruction Type:Provider Instructions for Treatment How to Access Health Informa tion Online using Patient Portal and [employer] Apps Indication:Obesity, morbid (more than 100 lbs over ideal weight or BMI > 40) Start:18-Mar-2021 Instruction Type:Patient Education Patient Instructions Indication:Non-smoker Start:25-Feb-2021 Instruction Type:Provider Instructions for Treatment How to Access Health Informa tion Online using Patient Portal and [employer] Apps Indication:Non-smoker Start:25-Feb-2021 Instruction Type:Patient Education obesity counseling Indication:LUIZA (obstructive sleep apnea) Start:12-Dec-2020 Instruction Type:Provider Instructions for Treatment Patient Instructions Indication:BMI 50.0-59.9, adult Start:12-Dec-2020 Instruction Type:Provider Instructions for Treatment How to Access Health Informa tion Online using Patient Portal and [employer] Apps Indication:BMI 50.0-59.9, adult Start:12-Dec-2020 Instruction Type:Patient Education Patient Instructions Indication:Non-smoker Start:04-Sep-2020 Instruction Type:Provider Instructions for Treatment How to Access Health Informa tion Online using Patient Portal and [employer] Apps Indication:Non-smoker Start:04-Sep-2020 Instruction Type:Patient Education How to access health informa tion online Indication:Non-smoker Start:05-May-2020 Instruction Type:Patient Education How to access health informa tion online - Detail Indication:Non-smoker Start:05-May-2020 Instruction Type:Patient Education Patient Instructions Indication:Non-smoker Start:05-May-2020 Instruction Type:Provider Instructions for Treatment How to access health informa tion online Indication:Non-smoker Start:22-Apr-2020 Instruction Type:Patient Education How to access health informa tion online - Detail Indication:Non-smoker Start:22-Apr-2020 Instruction Type:Patient Education Patient Instructions Indication:Non-smoker Start:22-Apr-2020 Instruction Type:Provider Instructions for Treatment How to access health informa tion online Indication:Urinary frequency Start:27-Feb-2020 Instruction Type:Patient Education How to access health informa tion online - Detail Indication:Urinary frequency Start:27-Feb-2020 Instruction Type:Patient Education Patient Instructions Indication:Urinary frequency Start:27-Feb-2020 Instruction Type:Provider Instructions for Treatment How to access health informa tion online Indication:Non-smoker Start:15-Feb-2020 Instruction Type:Patient Education How to access health informa tion online - Detail Indication:Non-smoker Start:15-Feb-2020 Instruction Type:Patient Education Patient Instructions Indication:Non-smoker Start:15-Feb-2020 Instruction Type:Provider Instructions for Treatment obesity counseling Indication:Hypertension Start:03-Dec-2019 Instruction Type:Provider Instructions for Treatment How to access health informa tion online Indication:BMI 45.0-49.9, adult Start:14-Nov-2019 Instruction Type:Patient Education How to access health informa tion online - Detail Indication:BMI 45.0-49.9, adult Start:14-Nov-2019 Instruction Type:Patient Education Patient Instructions Indication:BMI 45.0-49.9, adult Start:14-Nov-2019 Instruction Type:Provider Instructions for Treatment How to access health informa tion online Indication:Non-smoker Start:01-Nov-2019 Instruction Type:Patient Education How to access health informa tion online - Detail Indication:Non-smoker Start:01-Nov-2019 Instruction Type:Patient Education Patient Instructions Indication:Non-smoker Start:01-Nov-2019 Instruction Type:Provider Instructions for Treatment How to access health informa tion online Indication:Nonsmoker Start:15-Oct-2019 Instruction Type:Patient Education How to access health informa tion online - Detail Indication:Nonsmoker Start:15-Oct-2019 Instruction Type:Patient Education Patient Instructions Indication:Nonsmoker Start:15-Oct-2019 Instruction Type:Provider Instructions for Treatment How to access health informa tion online - Detail Indication:BMI 50.0-59.9, adult Start:02-Apr-2019 Instruction Type:Patient Education How to access health informa tion online Indication:BMI 50.0-59.9, adult Start:02-Apr-2019 Instruction Type:Patient Education Patient Instructions Indication:BMI 50.0-59.9, adult Start:02-Apr-2019 Instruction Type:Provider Instructions for Treatment How to access health informa tion online Indication:BMI 50.0-59.9, adult Start:15-Feb-2019 Instruction Type:Patient Education How to access health informa tion online - Detail Indication:BMI 50.0-59.9, adult Start:15-Feb-2019 Instruction Type:Patient Education Patient Instructions Indication:BMI 50.0-59.9, adult Start:15-Feb-2019 Instruction Type:Provider Instructions for Treatment How to access health informa tion online Indication:Nonsmoker Start:09-Feb-2019 Instruction Type:Patient Education How to access health informa tion online - Detail Indication:Nonsmoker Start:09-Feb-2019 Instruction Type:Patient Education Patient Instructions Indication:Nonsmoker Start:09-Feb-2019 Instruction Type:Provider Instructions for Treatment How to access health informa tion online Indication:BMI 50.0-59.9, adult Start:22-Jan-2019 Instruction Type:Patient Education How to access health informa tion online - Detail Indication:BMI 50.0-59.9, adult Start:22-Jan-2019 Instruction Type:Patient Education Patient Instructions Indication:BMI 50.0-59.9, adult Start:22-Jan-2019 Instruction Type:Provider Instructions for Treatment How to access health informa tion online Indication:Nonsmoker Start:05-Oct-2018 Instruction Type:Patient Education How to access health informa tion online - Detail Indication:Nonsmoker Start:05-Oct-2018 Instruction Type:Patient Education Patient Instructions Indication:Nonsmoker Start:05-Oct-2018 Instruction Type:Provider Instructions for Treatment How to access health informa tion online Indication:BMI 50.0-59.9, adult Start:13-Jan-2018 Instruction Type:Patient Education How to access health informa tion online - Detail Indication:BMI 50.0-59.9, adult Start:13-Jan-2018 Instruction Type:Patient Education Patient Instructions Indication:BMI 50.0-59.9, adult Start:13-Jan-2018 Instruction Type:Provider Instructions for Treatment How to access health informa tion online Indication:Nonsmoker Start:06-Jan-2018 Instruction Type:Patient Education How to access health informa tion online - Detail Indication:Nonsmoker Start:06-Jan-2018 Instruction Type:Patient Education Patient Instructions Indication:Nonsmoker Start:06-Jan-2018 Instruction Type:Provider Instructions for Treatment [facility]; [facility] Work Phone: Instructions* Name Dates Details Patient Instructions Indication:Non-smoker Start:09-Nov-2021 Instruction Type:Provider Instructions for Treatment How to Access Health Informa tion Online using Patient Portal and [employer] Apps Indication:Non-smoker Start:09-Nov-2021 Instruction Type:Patient Education Patient Instructions Indication:Non-smoker Start:12-Oct-2021 Instruction Type:Provider Instructions for Treatment How to Access Health Informa tion Online using Patient Portal and [employer] Apps Indication:Non-smoker Start:12-Oct-2021 Instruction Type:Patient Education Patient Instructions Indication:Non-smoker Start:21-Aug-2021 Instruction Type:Provider Instructions for Treatment How to Access Health Informa tion Online using Patient Portal and [employer] Apps Indication:Non-smoker Start:21-Aug-2021 Instruction Type:Patient Education Patient Instructions Indication:BMI 45.0-49.9, adult Start:29-Jul-2021 Instruction Type:Provider Instructions for Treatment How to Access Health Informa tion Online using Patient Portal and [employer] Apps Indication:BMI 45.0-49.9, adult Start:29-Jul-2021 Instruction Type:Patient Education Patient Instructions Indication:Hypothyroid Start:19-Jul-2021 Instruction Type:Provider Instructions for Treatment Patient Instructions Indication:Non-smoker Start:13-Jul-2021 Instruction Type:Provider Instructions for Treatment How to Access Health Informa tion Online using Patient Portal and [employer] Apps Indication:Non-smoker Start:13-Jul-2021 Instruction Type:Patient Education Patient Instructions Indication:BMI 45.0-49.9, adult Start:25-May-2021 Instruction Type:Provider Instructions for Treatment How to Access Health Informa tion Online using Patient Portal and [employer] Apps Indication:BMI 45.0-49.9, adult Start:25-May-2021 Instruction Type:Patient Education Patient Instructions Indication:Obesity, morbid (more than 100 lbs over ideal weight or BMI > 40) Start:18-Mar-2021 Instruction Type:Provider Instructions for Treatment How to Access Health Informa tion Online using Patient Portal and [employer] Apps Indication:Obesity, morbid (more than 100 lbs over ideal weight or BMI > 40) Start:18-Mar-2021 Instruction Type:Patient Education Patient Instructions Indication:Non-smoker Start:25-Feb-2021 Instruction Type:Provider Instructions for Treatment How to Access Health Informa tion Online using Patient Portal and [employer] Apps Indication:Non-smoker Start:25-Feb-2021 Instruction Type:Patient Education obesity counseling Indication:LUIZA (obstructive sleep apnea) Start:12-Dec-2020 Instruction Type:Provider Instructions for Treatment Patient Instructions Indication:BMI 50.0-59.9, adult Start:12-Dec-2020 Instruction Type:Provider Instructions for Treatment How to Access Health Informa tion Online using Patient Portal and [employer] Apps Indication:BMI 50.0-59.9, adult Start:12-Dec-2020 Instruction Type:Patient Education Patient Instructions Indication:Non-smoker Start:04-Sep-2020 Instruction Type:Provider Instructions for Treatment How to Access Health Informa tion Online using Patient Portal and [employer] Apps Indication:Non-smoker Start:04-Sep-2020 Instruction Type:Patient Education How to access health informa tion online Indication:Non-smoker Start:05-May-2020 Instruction Type:Patient Education How to access health informa tion online - Detail Indication:Non-smoker Start:05-May-2020 Instruction Type:Patient Education Patient Instructions Indication:Non-smoker Start:05-May-2020 Instruction Type:Provider Instructions for Treatment How to access health informa tion online Indication:Non-smoker Start:22-Apr-2020 Instruction Type:Patient Education How to access health informa tion online - Detail Indication:Non-smoker Start:22-Apr-2020 Instruction Type:Patient Education Patient Instructions Indication:Non-smoker Start:22-Apr-2020 Instruction Type:Provider Instructions for Treatment How to access health informa tion online Indication:Urinary frequency Start:27-Feb-2020 Instruction Type:Patient Education How to access health informa tion online - Detail Indication:Urinary frequency Start:27-Feb-2020 Instruction Type:Patient Education Patient Instructions Indication:Urinary frequency Start:27-Feb-2020 Instruction Type:Provider Instructions for Treatment How to access health informa tion online Indication:Non-smoker Start:15-Feb-2020 Instruction Type:Patient Education How to access health informa tion online - Detail Indication:Non-smoker Start:15-Feb-2020 Instruction Type:Patient Education Patient Instructions Indication:Non-smoker Start:15-Feb-2020 Instruction Type:Provider Instructions for Treatment obesity counseling Indication:Hypertension Start:03-Dec-2019 Instruction Type:Provider Instructions for Treatment How to access health informa tion online Indication:BMI 45.0-49.9, adult Start:14-Nov-2019 Instruction Type:Patient Education How to access health informa tion online - Detail Indication:BMI 45.0-49.9, adult Start:14-Nov-2019 Instruction Type:Patient Education Patient Instructions Indication:BMI 45.0-49.9, adult Start:14-Nov-2019 Instruction Type:Provider Instructions for Treatment How to access health informa tion online Indication:Non-smoker Start:01-Nov-2019 Instruction Type:Patient Education How to access health informa tion online - Detail Indication:Non-smoker Start:01-Nov-2019 Instruction Type:Patient Education Patient Instructions Indication:Non-smoker Start:01-Nov-2019 Instruction Type:Provider Instructions for Treatment How to access health informa tion online Indication:Nonsmoker Start:15-Oct-2019 Instruction Type:Patient Education How to access health informa tion online - Detail Indication:Nonsmoker Start:15-Oct-2019 Instruction Type:Patient Education Patient Instructions Indication:Nonsmoker Start:15-Oct-2019 Instruction Type:Provider Instructions for Treatment How to access health informa tion online - Detail Indication:BMI 50.0-59.9, adult Start:02-Apr-2019 Instruction Type:Patient Education How to access health informa tion online Indication:BMI 50.0-59.9, adult Start:02-Apr-2019 Instruction Type:Patient Education Patient Instructions Indication:BMI 50.0-59.9, adult Start:02-Apr-2019 Instruction Type:Provider Instructions for Treatment How to access health informa tion online Indication:BMI 50.0-59.9, adult Start:15-Feb-2019 Instruction Type:Patient Education How to access health informa tion online - Detail Indication:BMI 50.0-59.9, adult Start:15-Feb-2019 Instruction Type:Patient Education Patient Instructions Indication:BMI 50.0-59.9, adult Start:15-Feb-2019 Instruction Type:Provider Instructions for Treatment How to access health informa tion online Indication:Nonsmoker Start:09-Feb-2019 Instruction Type:Patient Education How to access health informa tion online - Detail Indication:Nonsmoker Start:09-Feb-2019 Instruction Type:Patient Education Patient Instructions Indication:Nonsmoker Start:09-Feb-2019 Instruction Type:Provider Instructions for Treatment How to access health informa tion online Indication:BMI 50.0-59.9, adult Start:22-Jan-2019 Instruction Type:Patient Education How to access health informa tion online - Detail Indication:BMI 50.0-59.9, adult Start:22-Jan-2019 Instruction Type:Patient Education Patient Instructions Indication:BMI 50.0-59.9, adult Start:22-Jan-2019 Instruction Type:Provider Instructions for Treatment How to access health informa tion online Indication:Nonsmoker Start:05-Oct-2018 Instruction Type:Patient Education How to access health informa tion online - Detail Indication:Nonsmoker Start:05-Oct-2018 Instruction Type:Patient Education Patient Instructions Indication:Nonsmoker Start:05-Oct-2018 Instruction Type:Provider Instructions for Treatment How to access health informa tion online Indication:BMI 50.0-59.9, adult Start:13-Jan-2018 Instruction Type:Patient Education How to access health informa tion online - Detail Indication:BMI 50.0-59.9, adult Start:13-Jan-2018 Instruction Type:Patient Education Patient Instructions Indication:BMI 50.0-59.9, adult Start:13-Jan-2018 Instruction Type:Provider Instructions for Treatment How to access health informa tion online Indication:Nonsmoker Start:06-Jan-2018 Instruction Type:Patient Education How to access health informa tion online - Detail Indication:Nonsmoker Start:06-Jan-2018 Instruction Type:Patient Education Patient Instructions Indication:Nonsmoker Start:06-Jan-2018 Instruction Type:Provider Instructions for Treatment [facility]; [facility] Work Phone: Instructions* Name Dates Details Patient Instructions Indication:Non-smoker Start:21-Jan-2022 Instruction Type:Provider Instructions for Treatment How to Access Health Informa tion Online using Patient Portal and [employer] Apps Indication:Non-smoker Start:21-Jan-2022 Instruction Type:Patient Education Patient Instructions Indication:Non-smoker Start:09-Nov-2021 Instruction Type:Provider Instructions for Treatment How to Access Health Informa tion Online using Patient Portal and [employer] Apps Indication:Non-smoker Start:09-Nov-2021 Instruction Type:Patient Education Patient Instructions Indication:Non-smoker Start:12-Oct-2021 Instruction Type:Provider Instructions for Treatment How to Access Health Informa tion Online using Patient Portal and [employer] Apps Indication:Non-smoker Start:12-Oct-2021 Instruction Type:Patient Education Patient Instructions Indication:Non-smoker Start:21-Aug-2021 Instruction Type:Provider Instructions for Treatment How to Access Health Informa tion Online using Patient Portal and [employer] Apps Indication:Non-smoker Start:21-Aug-2021 Instruction Type:Patient Education Patient Instructions Indication:BMI 45.0-49.9, adult Start:29-Jul-2021 Instruction Type:Provider Instructions for Treatment How to Access Health Informa tion Online using Patient Portal and [employer] Apps Indication:BMI 45.0-49.9, adult Start:29-Jul-2021 Instruction Type:Patient Education Patient Instructions Indication:Hypothyroid Start:19-Jul-2021 Instruction Type:Provider Instructions for Treatment Patient Instructions Indication:Non-smoker Start:13-Jul-2021 Instruction Type:Provider Instructions for Treatment How to Access Health Informa tion Online using Patient Portal and [employer] Apps Indication:Non-smoker Start:13-Jul-2021 Instruction Type:Patient Education Patient Instructions Indication:BMI 45.0-49.9, adult Start:25-May-2021 Instruction Type:Provider Instructions for Treatment How to Access Health Informa tion Online using Patient Portal and [employer] Apps Indication:BMI 45.0-49.9, adult Start:25-May-2021 Instruction Type:Patient Education Patient Instructions Indication:Obesity, morbid (more than 100 lbs over ideal weight or BMI > 40) Start:18-Mar-2021 Instruction Type:Provider Instructions for Treatment How to Access Health Informa tion Online using Patient Portal and [employer] Apps Indication:Obesity, morbid (more than 100 lbs over ideal weight or BMI > 40) Start:18-Mar-2021 Instruction Type:Patient Education Patient Instructions Indication:Non-smoker Start:25-Feb-2021 Instruction Type:Provider Instructions for Treatment How to Access Health Informa tion Online using Patient Portal and [employer] Apps Indication:Non-smoker Start:25-Feb-2021 Instruction Type:Patient Education obesity counseling Indication:LUIZA (obstructive sleep apnea) Start:12-Dec-2020 Instruction Type:Provider Instructions for Treatment Patient Instructions Indication:BMI 50.0-59.9, adult Start:12-Dec-2020 Instruction Type:Provider Instructions for Treatment How to Access Health Informa tion Online using Patient Portal and [employer] Apps Indication:BMI 50.0-59.9, adult Start:12-Dec-2020 Instruction Type:Patient Education Patient Instructions Indication:Non-smoker Start:04-Sep-2020 Instruction Type:Provider Instructions for Treatment How to Access Health Informa tion Online using Patient Portal and [employer] Apps Indication:Non-smoker Start:04-Sep-2020 Instruction Type:Patient Education How to access health informa tion online Indication:Non-smoker Start:05-May-2020 Instruction Type:Patient Education How to access health informa tion online - Detail Indication:Non-smoker Start:05-May-2020 Instruction Type:Patient Education Patient Instructions Indication:Non-smoker Start:05-May-2020 Instruction Type:Provider Instructions for Treatment How to access health informa tion online Indication:Non-smoker Start:22-Apr-2020 Instruction Type:Patient Education How to access health informa tion online - Detail Indication:Non-smoker Start:22-Apr-2020 Instruction Type:Patient Education Patient Instructions Indication:Non-smoker Start:22-Apr-2020 Instruction Type:Provider Instructions for Treatment How to access health informa tion online Indication:Urinary frequency Start:27-Feb-2020 Instruction Type:Patient Education How to access health informa tion online - Detail Indication:Urinary frequency Start:27-Feb-2020 Instruction Type:Patient Education Patient Instructions Indication:Urinary frequency Start:27-Feb-2020 Instruction Type:Provider Instructions for Treatment How to access health informa tion online Indication:Non-smoker Start:15-Feb-2020 Instruction Type:Patient Education How to access health informa tion online - Detail Indication:Non-smoker Start:15-Feb-2020 Instruction Type:Patient Education Patient Instructions Indication:Non-smoker Start:15-Feb-2020 Instruction Type:Provider Instructions for Treatment obesity counseling Indication:Hypertension Start:03-Dec-2019 Instruction Type:Provider Instructions for Treatment How to access health informa tion online Indication:BMI 45.0-49.9, adult Start:14-Nov-2019 Instruction Type:Patient Education How to access health informa tion online - Detail Indication:BMI 45.0-49.9, adult Start:14-Nov-2019 Instruction Type:Patient Education Patient Instructions Indication:BMI 45.0-49.9, adult Start:14-Nov-2019 Instruction Type:Provider Instructions for Treatment How to access health informa tion online Indication:Non-smoker Start:01-Nov-2019 Instruction Type:Patient Education How to access health informa tion online - Detail Indication:Non-smoker Start:01-Nov-2019 Instruction Type:Patient Education Patient Instructions Indication:Non-smoker Start:01-Nov-2019 Instruction Type:Provider Instructions for Treatment How to access health informa tion online Indication:Nonsmoker Start:15-Oct-2019 Instruction Type:Patient Education How to access health informa tion online - Detail Indication:Nonsmoker Start:15-Oct-2019 Instruction Type:Patient Education Patient Instructions Indication:Nonsmoker Start:15-Oct-2019 Instruction Type:Provider Instructions for Treatment How to access health informa tion online - Detail Indication:BMI 50.0-59.9, adult Start:02-Apr-2019 Instruction Type:Patient Education How to access health informa tion online Indication:BMI 50.0-59.9, adult Start:02-Apr-2019 Instruction Type:Patient Education Patient Instructions Indication:BMI 50.0-59.9, adult Start:02-Apr-2019 Instruction Type:Provider Instructions for Treatment How to access health informa tion online Indication:BMI 50.0-59.9, adult Start:15-Feb-2019 Instruction Type:Patient Education How to access health informa tion online - Detail Indication:BMI 50.0-59.9, adult Start:15-Feb-2019 Instruction Type:Patient Education Patient Instructions Indication:BMI 50.0-59.9, adult Start:15-Feb-2019 Instruction Type:Provider Instructions for Treatment How to access health informa tion online Indication:Nonsmoker Start:09-Feb-2019 Instruction Type:Patient Education How to access health informa tion online - Detail Indication:Nonsmoker Start:09-Feb-2019 Instruction Type:Patient Education Patient Instructions Indication:Nonsmoker Start:09-Feb-2019 Instruction Type:Provider Instructions for Treatment How to access health informa tion online Indication:BMI 50.0-59.9, adult Start:22-Jan-2019 Instruction Type:Patient Education How to access health informa tion online - Detail Indication:BMI 50.0-59.9, adult Start:22-Jan-2019 Instruction Type:Patient Education Patient Instructions Indication:BMI 50.0-59.9, adult Start:22-Jan-2019 Instruction Type:Provider Instructions for Treatment How to access health informa tion online Indication:Nonsmoker Start:05-Oct-2018 Instruction Type:Patient Education How to access health informa tion online - Detail Indication:Nonsmoker Start:05-Oct-2018 Instruction Type:Patient Education Patient Instructions Indication:Nonsmoker Start:05-Oct-2018 Instruction Type:Provider Instructions for Treatment How to access health informa tion online Indication:BMI 50.0-59.9, adult Start:13-Jan-2018 Instruction Type:Patient Education How to access health informa tion online - Detail Indication:BMI 50.0-59.9, adult Start:13-Jan-2018 Instruction Type:Patient Education Patient Instructions Indication:BMI 50.0-59.9, adult Start:13-Jan-2018 Instruction Type:Provider Instructions for Treatment How to access health informa tion online Indication:Nonsmoker Start:06-Jan-2018 Instruction Type:Patient Education How to access health informa tion online - Detail Indication:Nonsmoker Start:06-Jan-2018 Instruction Type:Patient Education Patient Instructions Indication:Nonsmoker Start:06-Jan-2018 Instruction Type:Provider Instructions for Treatment [facility]; [facility] Work Phone: Instructions* Name Dates Details Patient Instructions Indication:Non-smoker Start:21-Jan-2022 Instruction Type:Provider Instructions for Treatment How to Access Health Informa tion Online using Patient Portal and [employer] Apps Indication:Non-smoker Start:21-Jan-2022 Instruction Type:Patient Education Patient Instructions Indication:Non-smoker Start:09-Nov-2021 Instruction Type:Provider Instructions for Treatment How to Access Health Informa tion Online using Patient Portal and [employer] Apps Indication:Non-smoker Start:09-Nov-2021 Instruction Type:Patient Education Patient Instructions Indication:Non-smoker Start:21-Aug-2021 Instruction Type:Provider Instructions for Treatment How to Access Health Informa tion Online using Patient Portal and [employer] Apps Indication:Non-smoker Start:21-Aug-2021 Instruction Type:Patient Education Patient Instructions Indication:BMI 45.0-49.9, adult Start:29-Jul-2021 Instruction Type:Provider Instructions for Treatment How to Access Health Informa tion Online using Patient Portal and [employer] Apps Indication:BMI 45.0-49.9, adult Start:29-Jul-2021 Instruction Type:Patient Education Patient Instructions Indication:Hypothyroid Start:19-Jul-2021 Instruction Type:Provider Instructions for Treatment Patient Instructions Indication:Non-smoker Start:13-Jul-2021 Instruction Type:Provider Instructions for Treatment How to Access Health Informa tion Online using Patient Portal and [employer] Apps Indication:Non-smoker Start:13-Jul-2021 Instruction Type:Patient Education Patient Instructions Indication:BMI 45.0-49.9, adult Start:25-May-2021 Instruction Type:Provider Instructions for Treatment How to Access Health Informa tion Online using Patient Portal and [employer] Apps Indication:BMI 45.0-49.9, adult Start:25-May-2021 Instruction Type:Patient Education Patient Instructions Indication:Obesity, morbid (more than 100 lbs over ideal weight or BMI > 40) Start:18-Mar-2021 Instruction Type:Provider Instructions for Treatment How to Access Health Informa tion Online using Patient Portal and [employer] Apps Indication:Obesity, morbid (more than 100 lbs over ideal weight or BMI > 40) Start:18-Mar-2021 Instruction Type:Patient Education Patient Instructions Indication:Non-smoker Start:25-Feb-2021 Instruction Type:Provider Instructions for Treatment How to Access Health Informa tion Online using Patient Portal and [employer] Apps Indication:Non-smoker Start:25-Feb-2021 Instruction Type:Patient Education obesity counseling Indication:LUIZA (obstructive sleep apnea) Start:12-Dec-2020 Instruction Type:Provider Instructions for Treatment Patient Instructions Indication:BMI 50.0-59.9, adult Start:12-Dec-2020 Instruction Type:Provider Instructions for Treatment How to Access Health Informa tion Online using Patient Portal and [employer] Apps Indication:BMI 50.0-59.9, adult Start:12-Dec-2020 Instruction Type:Patient Education Patient Instructions Indication:Non-smoker Start:04-Sep-2020 Instruction Type:Provider Instructions for Treatment How to Access Health Informa tion Online using Patient Portal and [employer] Apps Indication:Non-smoker Start:04-Sep-2020 Instruction Type:Patient Education How to access health informa tion online Indication:Non-smoker Start:05-May-2020 Instruction Type:Patient Education How to access health informa tion online - Detail Indication:Non-smoker Start:05-May-2020 Instruction Type:Patient Education Patient Instructions Indication:Non-smoker Start:05-May-2020 Instruction Type:Provider Instructions for Treatment How to access health informa tion online Indication:Non-smoker Start:22-Apr-2020 Instruction Type:Patient Education How to access health informa tion online - Detail Indication:Non-smoker Start:22-Apr-2020 Instruction Type:Patient Education Patient Instructions Indication:Non-smoker Start:22-Apr-2020 Instruction Type:Provider Instructions for Treatment How to access health informa tion online Indication:Urinary frequency Start:27-Feb-2020 Instruction Type:Patient Education How to access health informa tion online - Detail Indication:Urinary frequency Start:27-Feb-2020 Instruction Type:Patient Education Patient Instructions Indication:Urinary frequency Start:27-Feb-2020 Instruction Type:Provider Instructions for Treatment How to access health informa tion online Indication:Non-smoker Start:15-Feb-2020 Instruction Type:Patient Education How to access health informa tion online - Detail Indication:Non-smoker Start:15-Feb-2020 Instruction Type:Patient Education Patient Instructions Indication:Non-smoker Start:15-Feb-2020 Instruction Type:Provider Instructions for Treatment obesity counseling Indication:Hypertension Start:03-Dec-2019 Instruction Type:Provider Instructions for Treatment How to access health informa tion online Indication:BMI 45.0-49.9, adult Start:14-Nov-2019 Instruction Type:Patient Education How to access health informa tion online - Detail Indication:BMI 45.0-49.9, adult Start:14-Nov-2019 Instruction Type:Patient Education Patient Instructions Indication:BMI 45.0-49.9, adult Start:14-Nov-2019 Instruction Type:Provider Instructions for Treatment How to access health informa tion online Indication:Non-smoker Start:01-Nov-2019 Instruction Type:Patient Education How to access health informa tion online - Detail Indication:Non-smoker Start:01-Nov-2019 Instruction Type:Patient Education Patient Instructions Indication:Non-smoker Start:01-Nov-2019 Instruction Type:Provider Instructions for Treatment How to access health informa tion online Indication:Nonsmoker Start:15-Oct-2019 Instruction Type:Patient Education How to access health informa tion online - Detail Indication:Nonsmoker Start:15-Oct-2019 Instruction Type:Patient Education Patient Instructions Indication:Nonsmoker Start:15-Oct-2019 Instruction Type:Provider Instructions for Treatment How to access health informa tion online - Detail Indication:BMI 50.0-59.9, adult Start:02-Apr-2019 Instruction Type:Patient Education How to access health informa tion online Indication:BMI 50.0-59.9, adult Start:02-Apr-2019 Instruction Type:Patient Education Patient Instructions Indication:BMI 50.0-59.9, adult Start:02-Apr-2019 Instruction Type:Provider Instructions for Treatment How to access health informa tion online Indication:BMI 50.0-59.9, adult Start:15-Feb-2019 Instruction Type:Patient Education How to access health informa tion online - Detail Indication:BMI 50.0-59.9, adult Start:15-Feb-2019 Instruction Type:Patient Education Patient Instructions Indication:BMI 50.0-59.9, adult Start:15-Feb-2019 Instruction Type:Provider Instructions for Treatment How to access health informa tion online Indication:Nonsmoker Start:09-Feb-2019 Instruction Type:Patient Education How to access health informa tion online - Detail Indication:Nonsmoker Start:09-Feb-2019 Instruction Type:Patient Education Patient Instructions Indication:Nonsmoker Start:09-Feb-2019 Instruction Type:Provider Instructions for Treatment How to access health informa tion online Indication:BMI 50.0-59.9, adult Start:22-Jan-2019 Instruction Type:Patient Education How to access health informa tion online - Detail Indication:BMI 50.0-59.9, adult Start:22-Jan-2019 Instruction Type:Patient Education Patient Instructions Indication:BMI 50.0-59.9, adult Start:22-Jan-2019 Instruction Type:Provider Instructions for Treatment How to access health informa tion online Indication:Nonsmoker Start:05-Oct-2018 Instruction Type:Patient Education How to access health informa tion online - Detail Indication:Nonsmoker Start:05-Oct-2018 Instruction Type:Patient Education Patient Instructions Indication:Nonsmoker Start:05-Oct-2018 Instruction Type:Provider Instructions for Treatment How to access health informa tion online Indication:BMI 50.0-59.9, adult Start:13-Jan-2018 Instruction Type:Patient Education How to access health informa tion online - Detail Indication:BMI 50.0-59.9, adult Start:13-Jan-2018 Instruction Type:Patient Education Patient Instructions Indication:BMI 50.0-59.9, adult Start:13-Jan-2018 Instruction Type:Provider Instructions for Treatment How to access health informa tion online Indication:Nonsmoker Start:06-Jan-2018 Instruction Type:Patient Education How to access health informa tion online - Detail Indication:Nonsmoker Start:06-Jan-2018 Instruction Type:Patient Education Patient Instructions Indication:Nonsmoker Start:06-Jan-2018 Instruction Type:Provider Instructions for Treatment [facility]; [facility] Work Phone: Instructions* Name Dates Details Patient Instructions Indication:Non-smoker Start:21-Jan-2022 Instruction Type:Provider Instructions for Treatment How to Access Health Informa tion Online using Patient Portal and [employer] Apps Indication:Non-smoker Start:21-Jan-2022 Instruction Type:Patient Education Patient Instructions Indication:Non-smoker Start:09-Nov-2021 Instruction Type:Provider Instructions for Treatment How to Access Health Informa tion Online using Patient Portal and [employer] Apps Indication:Non-smoker Start:09-Nov-2021 Instruction Type:Patient Education Patient Instructions Indication:Non-smoker Start:21-Aug-2021 Instruction Type:Provider Instructions for Treatment How to Access Health Informa tion Online using Patient Portal and [employer] Apps Indication:Non-smoker Start:21-Aug-2021 Instruction Type:Patient Education Patient Instructions Indication:BMI 45.0-49.9, adult Start:29-Jul-2021 Instruction Type:Provider Instructions for Treatment How to Access Health Informa tion Online using Patient Portal and [employer] Apps Indication:BMI 45.0-49.9, adult Start:29-Jul-2021 Instruction Type:Patient Education Patient Instructions Indication:Hypothyroid Start:19-Jul-2021 Instruction Type:Provider Instructions for Treatment Patient Instructions Indication:Non-smoker Start:13-Jul-2021 Instruction Type:Provider Instructions for Treatment How to Access Health Informa tion Online using Patient Portal and [employer] Apps Indication:Non-smoker Start:13-Jul-2021 Instruction Type:Patient Education Patient Instructions Indication:BMI 45.0-49.9, adult Start:25-May-2021 Instruction Type:Provider Instructions for Treatment How to Access Health Informa tion Online using Patient Portal and [employer] Apps Indication:BMI 45.0-49.9, adult Start:25-May-2021 Instruction Type:Patient Education Patient Instructions Indication:Obesity, morbid (more than 100 lbs over ideal weight or BMI > 40) Start:18-Mar-2021 Instruction Type:Provider Instructions for Treatment How to Access Health Informa tion Online using Patient Portal and [employer] Apps Indication:Obesity, morbid (more than 100 lbs over ideal weight or BMI > 40) Start:18-Mar-2021 Instruction Type:Patient Education Patient Instructions Indication:Non-smoker Start:25-Feb-2021 Instruction Type:Provider Instructions for Treatment How to Access Health Informa tion Online using Patient Portal and [employer] Apps Indication:Non-smoker Start:25-Feb-2021 Instruction Type:Patient Education obesity counseling Indication:LUIZA (obstructive sleep apnea) Start:12-Dec-2020 Instruction Type:Provider Instructions for Treatment Patient Instructions Indication:BMI 50.0-59.9, adult Start:12-Dec-2020 Instruction Type:Provider Instructions for Treatment How to Access Health Informa tion Online using Patient Portal and [employer] Apps Indication:BMI 50.0-59.9, adult Start:12-Dec-2020 Instruction Type:Patient Education Patient Instructions Indication:Non-smoker Start:04-Sep-2020 Instruction Type:Provider Instructions for Treatment How to Access Health Informa tion Online using Patient Portal and [employer] Apps Indication:Non-smoker Start:04-Sep-2020 Instruction Type:Patient Education How to access health informa tion online Indication:Non-smoker Start:05-May-2020 Instruction Type:Patient Education How to access health informa tion online - Detail Indication:Non-smoker Start:05-May-2020 Instruction Type:Patient Education Patient Instructions Indication:Non-smoker Start:05-May-2020 Instruction Type:Provider Instructions for Treatment How to access health informa tion online Indication:Non-smoker Start:22-Apr-2020 Instruction Type:Patient Education How to access health informa tion online - Detail Indication:Non-smoker Start:22-Apr-2020 Instruction Type:Patient Education Patient Instructions Indication:Non-smoker Start:22-Apr-2020 Instruction Type:Provider Instructions for Treatment How to access health informa tion online Indication:Urinary frequency Start:27-Feb-2020 Instruction Type:Patient Education How to access health informa tion online - Detail Indication:Urinary frequency Start:27-Feb-2020 Instruction Type:Patient Education Patient Instructions Indication:Urinary frequency Start:27-Feb-2020 Instruction Type:Provider Instructions for Treatment How to access health informa tion online Indication:Non-smoker Start:15-Feb-2020 Instruction Type:Patient Education How to access health informa tion online - Detail Indication:Non-smoker Start:15-Feb-2020 Instruction Type:Patient Education Patient Instructions Indication:Non-smoker Start:15-Feb-2020 Instruction Type:Provider Instructions for Treatment obesity counseling Indication:Hypertension Start:03-Dec-2019 Instruction Type:Provider Instructions for Treatment How to access health informa tion online Indication:BMI 45.0-49.9, adult Start:14-Nov-2019 Instruction Type:Patient Education How to access health informa tion online - Detail Indication:BMI 45.0-49.9, adult Start:14-Nov-2019 Instruction Type:Patient Education Patient Instructions Indication:BMI 45.0-49.9, adult Start:14-Nov-2019 Instruction Type:Provider Instructions for Treatment How to access health informa tion online Indication:Non-smoker Start:01-Nov-2019 Instruction Type:Patient Education How to access health informa tion online - Detail Indication:Non-smoker Start:01-Nov-2019 Instruction Type:Patient Education Patient Instructions Indication:Non-smoker Start:01-Nov-2019 Instruction Type:Provider Instructions for Treatment How to access health informa tion online Indication:Nonsmoker Start:15-Oct-2019 Instruction Type:Patient Education How to access health informa tion online - Detail Indication:Nonsmoker Start:15-Oct-2019 Instruction Type:Patient Education Patient Instructions Indication:Nonsmoker Start:15-Oct-2019 Instruction Type:Provider Instructions for Treatment How to access health informa tion online - Detail Indication:BMI 50.0-59.9, adult Start:02-Apr-2019 Instruction Type:Patient Education How to access health informa tion online Indication:BMI 50.0-59.9, adult Start:02-Apr-2019 Instruction Type:Patient Education Patient Instructions Indication:BMI 50.0-59.9, adult Start:02-Apr-2019 Instruction Type:Provider Instructions for Treatment How to access health informa tion online Indication:BMI 50.0-59.9, adult Start:15-Feb-2019 Instruction Type:Patient Education How to access health informa tion online - Detail Indication:BMI 50.0-59.9, adult Start:15-Feb-2019 Instruction Type:Patient Education Patient Instructions Indication:BMI 50.0-59.9, adult Start:15-Feb-2019 Instruction Type:Provider Instructions for Treatment How to access health informa tion online Indication:Nonsmoker Start:09-Feb-2019 Instruction Type:Patient Education How to access health informa tion online - Detail Indication:Nonsmoker Start:09-Feb-2019 Instruction Type:Patient Education Patient Instructions Indication:Nonsmoker Start:09-Feb-2019 Instruction Type:Provider Instructions for Treatment How to access health informa tion online Indication:BMI 50.0-59.9, adult Start:22-Jan-2019 Instruction Type:Patient Education How to access health informa tion online - Detail Indication:BMI 50.0-59.9, adult Start:22-Jan-2019 Instruction Type:Patient Education Patient Instructions Indication:BMI 50.0-59.9, adult Start:22-Jan-2019 Instruction Type:Provider Instructions for Treatment How to access health informa tion online Indication:Nonsmoker Start:05-Oct-2018 Instruction Type:Patient Education How to access health informa tion online - Detail Indication:Nonsmoker Start:05-Oct-2018 Instruction Type:Patient Education Patient Instructions Indication:Nonsmoker Start:05-Oct-2018 Instruction Type:Provider Instructions for Treatment How to access health informa tion online Indication:BMI 50.0-59.9, adult Start:13-Jan-2018 Instruction Type:Patient Education How to access health informa tion online - Detail Indication:BMI 50.0-59.9, adult Start:13-Jan-2018 Instruction Type:Patient Education Patient Instructions Indication:BMI 50.0-59.9, adult Start:13-Jan-2018 Instruction Type:Provider Instructions for Treatment How to access health informa tion online Indication:Nonsmoker Start:06-Jan-2018 Instruction Type:Patient Education How to access health informa tion online - Detail Indication:Nonsmoker Start:06-Jan-2018 Instruction Type:Patient Education Patient Instructions Indication:Nonsmoker Start:06-Jan-2018 Instruction Type:Provider Instructions for Treatment [facility]; [facility] Work Phone: Instructions* Name Dates Details Patient Instructions Indication:Non-smoker Start:21-Jan-2022 Instruction Type:Provider Instructions for Treatment How to Access Health Informa tion Online using Patient Portal and [employer] Apps Indication:Non-smoker Start:21-Jan-2022 Instruction Type:Patient Education Patient Instructions Indication:Non-smoker Start:09-Nov-2021 Instruction Type:Provider Instructions for Treatment How to Access Health Informa tion Online using Patient Portal and [employer] Apps Indication:Non-smoker Start:09-Nov-2021 Instruction Type:Patient Education Patient Instructions Indication:Non-smoker Start:21-Aug-2021 Instruction Type:Provider Instructions for Treatment How to Access Health Informa tion Online using Patient Portal and [employer] Apps Indication:Non-smoker Start:21-Aug-2021 Instruction Type:Patient Education Patient Instructions Indication:BMI 45.0-49.9, adult Start:29-Jul-2021 Instruction Type:Provider Instructions for Treatment How to Access Health Informa tion Online using Patient Portal and [employer] Apps Indication:BMI 45.0-49.9, adult Start:29-Jul-2021 Instruction Type:Patient Education Patient Instructions Indication:Hypothyroid Start:19-Jul-2021 Instruction Type:Provider Instructions for Treatment Patient Instructions Indication:Non-smoker Start:13-Jul-2021 Instruction Type:Provider Instructions for Treatment How to Access Health Informa tion Online using Patient Portal and [employer] Apps Indication:Non-smoker Start:13-Jul-2021 Instruction Type:Patient Education Patient Instructions Indication:BMI 45.0-49.9, adult Start:25-May-2021 Instruction Type:Provider Instructions for Treatment How to Access Health Informa tion Online using Patient Portal and [employer] Apps Indication:BMI 45.0-49.9, adult Start:25-May-2021 Instruction Type:Patient Education Patient Instructions Indication:Obesity, morbid (more than 100 lbs over ideal weight or BMI > 40) Start:18-Mar-2021 Instruction Type:Provider Instructions for Treatment How to Access Health Informa tion Online using Patient Portal and [employer] Apps Indication:Obesity, morbid (more than 100 lbs over ideal weight or BMI > 40) Start:18-Mar-2021 Instruction Type:Patient Education Patient Instructions Indication:Non-smoker Start:25-Feb-2021 Instruction Type:Provider Instructions for Treatment How to Access Health Informa tion Online using Patient Portal and [employer] Apps Indication:Non-smoker Start:25-Feb-2021 Instruction Type:Patient Education obesity counseling Indication:LUIZA (obstructive sleep apnea) Start:12-Dec-2020 Instruction Type:Provider Instructions for Treatment Patient Instructions Indication:BMI 50.0-59.9, adult Start:12-Dec-2020 Instruction Type:Provider Instructions for Treatment How to Access Health Informa tion Online using Patient Portal and [employer] Apps Indication:BMI 50.0-59.9, adult Start:12-Dec-2020 Instruction Type:Patient Education Patient Instructions Indication:Non-smoker Start:04-Sep-2020 Instruction Type:Provider Instructions for Treatment How to Access Health Informa tion Online using Patient Portal and [employer] Apps Indication:Non-smoker Start:04-Sep-2020 Instruction Type:Patient Education How to access health informa tion online Indication:Non-smoker Start:05-May-2020 Instruction Type:Patient Education How to access health informa tion online - Detail Indication:Non-smoker Start:05-May-2020 Instruction Type:Patient Education Patient Instructions Indication:Non-smoker Start:05-May-2020 Instruction Type:Provider Instructions for Treatment How to access health informa tion online Indication:Non-smoker Start:22-Apr-2020 Instruction Type:Patient Education How to access health informa tion online - Detail Indication:Non-smoker Start:22-Apr-2020 Instruction Type:Patient Education Patient Instructions Indication:Non-smoker Start:22-Apr-2020 Instruction Type:Provider Instructions for Treatment How to access health informa tion online Indication:Urinary frequency Start:27-Feb-2020 Instruction Type:Patient Education How to access health informa tion online - Detail Indication:Urinary frequency Start:27-Feb-2020 Instruction Type:Patient Education Patient Instructions Indication:Urinary frequency Start:27-Feb-2020 Instruction Type:Provider Instructions for Treatment How to access health informa tion online Indication:Non-smoker Start:15-Feb-2020 Instruction Type:Patient Education How to access health informa tion online - Detail Indication:Non-smoker Start:15-Feb-2020 Instruction Type:Patient Education Patient Instructions Indication:Non-smoker Start:15-Feb-2020 Instruction Type:Provider Instructions for Treatment obesity counseling Indication:Hypertension Start:03-Dec-2019 Instruction Type:Provider Instructions for Treatment How to access health informa tion online Indication:BMI 45.0-49.9, adult Start:14-Nov-2019 Instruction Type:Patient Education How to access health informa tion online - Detail Indication:BMI 45.0-49.9, adult Start:14-Nov-2019 Instruction Type:Patient Education Patient Instructions Indication:BMI 45.0-49.9, adult Start:14-Nov-2019 Instruction Type:Provider Instructions for Treatment How to access health informa tion online Indication:Non-smoker Start:01-Nov-2019 Instruction Type:Patient Education How to access health informa tion online - Detail Indication:Non-smoker Start:01-Nov-2019 Instruction Type:Patient Education Patient Instructions Indication:Non-smoker Start:01-Nov-2019 Instruction Type:Provider Instructions for Treatment How to access health informa tion online Indication:Nonsmoker Start:15-Oct-2019 Instruction Type:Patient Education How to access health informa tion online - Detail Indication:Nonsmoker Start:15-Oct-2019 Instruction Type:Patient Education Patient Instructions Indication:Nonsmoker Start:15-Oct-2019 Instruction Type:Provider Instructions for Treatment How to access health informa tion online - Detail Indication:BMI 50.0-59.9, adult Start:02-Apr-2019 Instruction Type:Patient Education How to access health informa tion online Indication:BMI 50.0-59.9, adult Start:02-Apr-2019 Instruction Type:Patient Education Patient Instructions Indication:BMI 50.0-59.9, adult Start:02-Apr-2019 Instruction Type:Provider Instructions for Treatment How to access health informa tion online Indication:BMI 50.0-59.9, adult Start:15-Feb-2019 Instruction Type:Patient Education How to access health informa tion online - Detail Indication:BMI 50.0-59.9, adult Start:15-Feb-2019 Instruction Type:Patient Education Patient Instructions Indication:BMI 50.0-59.9, adult Start:15-Feb-2019 Instruction Type:Provider Instructions for Treatment How to access health informa tion online Indication:Nonsmoker Start:09-Feb-2019 Instruction Type:Patient Education How to access health informa tion online - Detail Indication:Nonsmoker Start:09-Feb-2019 Instruction Type:Patient Education Patient Instructions Indication:Nonsmoker Start:09-Feb-2019 Instruction Type:Provider Instructions for Treatment How to access health informa tion online Indication:BMI 50.0-59.9, adult Start:22-Jan-2019 Instruction Type:Patient Education How to access health informa tion online - Detail Indication:BMI 50.0-59.9, adult Start:22-Jan-2019 Instruction Type:Patient Education Patient Instructions Indication:BMI 50.0-59.9, adult Start:22-Jan-2019 Instruction Type:Provider Instructions for Treatment How to access health informa tion online Indication:Nonsmoker Start:05-Oct-2018 Instruction Type:Patient Education How to access health informa tion online - Detail Indication:Nonsmoker Start:05-Oct-2018 Instruction Type:Patient Education Patient Instructions Indication:Nonsmoker Start:05-Oct-2018 Instruction Type:Provider Instructions for Treatment How to access health informa tion online Indication:BMI 50.0-59.9, adult Start:13-Jan-2018 Instruction Type:Patient Education How to access health informa tion online - Detail Indication:BMI 50.0-59.9, adult Start:13-Jan-2018 Instruction Type:Patient Education Patient Instructions Indication:BMI 50.0-59.9, adult Start:13-Jan-2018 Instruction Type:Provider Instructions for Treatment How to access health informa tion online Indication:Nonsmoker Start:06-Jan-2018 Instruction Type:Patient Education How to access health informa tion online - Detail Indication:Nonsmoker Start:06-Jan-2018 Instruction Type:Patient Education Patient Instructions Indication:Nonsmoker Start:06-Jan-2018 Instruction Type:Provider Instructions for Treatment [facility]; [facility] Work Phone: Instructions* Name Dates Details Patient Instructions Indication:Non-smoker Start:21-Jan-2022 Instruction Type:Provider Instructions for Treatment How to Access Health Informa tion Online using Patient Portal and [employer] Apps Indication:Non-smoker Start:21-Jan-2022 Instruction Type:Patient Education Patient Instructions Indication:Non-smoker Start:09-Nov-2021 Instruction Type:Provider Instructions for Treatment How to Access Health Informa tion Online using Patient Portal and [employer] Apps Indication:Non-smoker Start:09-Nov-2021 Instruction Type:Patient Education Patient Instructions Indication:Non-smoker Start:21-Aug-2021 Instruction Type:Provider Instructions for Treatment How to Access Health Informa tion Online using Patient Portal and [employer] Apps Indication:Non-smoker Start:21-Aug-2021 Instruction Type:Patient Education Patient Instructions Indication:BMI 45.0-49.9, adult Start:29-Jul-2021 Instruction Type:Provider Instructions for Treatment How to Access Health Informa tion Online using Patient Portal and [employer] Apps Indication:BMI 45.0-49.9, adult Start:29-Jul-2021 Instruction Type:Patient Education Patient Instructions Indication:Hypothyroid Start:19-Jul-2021 Instruction Type:Provider Instructions for Treatment Patient Instructions Indication:Non-smoker Start:13-Jul-2021 Instruction Type:Provider Instructions for Treatment How to Access Health Informa tion Online using Patient Portal and [employer] Apps Indication:Non-smoker Start:13-Jul-2021 Instruction Type:Patient Education Patient Instructions Indication:BMI 45.0-49.9, adult Start:25-May-2021 Instruction Type:Provider Instructions for Treatment How to Access Health Informa tion Online using Patient Portal and [employer] Apps Indication:BMI 45.0-49.9, adult Start:25-May-2021 Instruction Type:Patient Education Patient Instructions Indication:Obesity, morbid (more than 100 lbs over ideal weight or BMI > 40) Start:18-Mar-2021 Instruction Type:Provider Instructions for Treatment How to Access Health Informa tion Online using Patient Portal and [employer] Apps Indication:Obesity, morbid (more than 100 lbs over ideal weight or BMI > 40) Start:18-Mar-2021 Instruction Type:Patient Education Patient Instructions Indication:Non-smoker Start:25-Feb-2021 Instruction Type:Provider Instructions for Treatment How to Access Health Informa tion Online using Patient Portal and [employer] Apps Indication:Non-smoker Start:25-Feb-2021 Instruction Type:Patient Education obesity counseling Indication:LUIZA (obstructive sleep apnea) Start:12-Dec-2020 Instruction Type:Provider Instructions for Treatment Patient Instructions Indication:BMI 50.0-59.9, adult Start:12-Dec-2020 Instruction Type:Provider Instructions for Treatment How to Access Health Informa tion Online using Patient Portal and [employer] Apps Indication:BMI 50.0-59.9, adult Start:12-Dec-2020 Instruction Type:Patient Education Patient Instructions Indication:Non-smoker Start:04-Sep-2020 Instruction Type:Provider Instructions for Treatment How to Access Health Informa tion Online using Patient Portal and [employer] Apps Indication:Non-smoker Start:04-Sep-2020 Instruction Type:Patient Education How to access health informa tion online Indication:Non-smoker Start:05-May-2020 Instruction Type:Patient Education How to access health informa tion online - Detail Indication:Non-smoker Start:05-May-2020 Instruction Type:Patient Education Patient Instructions Indication:Non-smoker Start:05-May-2020 Instruction Type:Provider Instructions for Treatment How to access health informa tion online Indication:Non-smoker Start:22-Apr-2020 Instruction Type:Patient Education How to access health informa tion online - Detail Indication:Non-smoker Start:22-Apr-2020 Instruction Type:Patient Education Patient Instructions Indication:Non-smoker Start:22-Apr-2020 Instruction Type:Provider Instructions for Treatment How to access health informa tion online Indication:Urinary frequency Start:27-Feb-2020 Instruction Type:Patient Education How to access health informa tion online - Detail Indication:Urinary frequency Start:27-Feb-2020 Instruction Type:Patient Education Patient Instructions Indication:Urinary frequency Start:27-Feb-2020 Instruction Type:Provider Instructions for Treatment How to access health informa tion online Indication:Non-smoker Start:15-Feb-2020 Instruction Type:Patient Education How to access health informa tion online - Detail Indication:Non-smoker Start:15-Feb-2020 Instruction Type:Patient Education Patient Instructions Indication:Non-smoker Start:15-Feb-2020 Instruction Type:Provider Instructions for Treatment obesity counseling Indication:Hypertension Start:03-Dec-2019 Instruction Type:Provider Instructions for Treatment How to access health informa tion online Indication:BMI 45.0-49.9, adult Start:14-Nov-2019 Instruction Type:Patient Education How to access health informa tion online - Detail Indication:BMI 45.0-49.9, adult Start:14-Nov-2019 Instruction Type:Patient Education Patient Instructions Indication:BMI 45.0-49.9, adult Start:14-Nov-2019 Instruction Type:Provider Instructions for Treatment How to access health informa tion online Indication:Non-smoker Start:01-Nov-2019 Instruction Type:Patient Education How to access health informa tion online - Detail Indication:Non-smoker Start:01-Nov-2019 Instruction Type:Patient Education Patient Instructions Indication:Non-smoker Start:01-Nov-2019 Instruction Type:Provider Instructions for Treatment How to access health informa tion online Indication:Nonsmoker Start:15-Oct-2019 Instruction Type:Patient Education How to access health informa tion online - Detail Indication:Nonsmoker Start:15-Oct-2019 Instruction Type:Patient Education Patient Instructions Indication:Nonsmoker Start:15-Oct-2019 Instruction Type:Provider Instructions for Treatment How to access health informa tion online - Detail Indication:BMI 50.0-59.9, adult Start:02-Apr-2019 Instruction Type:Patient Education How to access health informa tion online Indication:BMI 50.0-59.9, adult Start:02-Apr-2019 Instruction Type:Patient Education Patient Instructions Indication:BMI 50.0-59.9, adult Start:02-Apr-2019 Instruction Type:Provider Instructions for Treatment How to access health informa tion online Indication:BMI 50.0-59.9, adult Start:15-Feb-2019 Instruction Type:Patient Education How to access health informa tion online - Detail Indication:BMI 50.0-59.9, adult Start:15-Feb-2019 Instruction Type:Patient Education Patient Instructions Indication:BMI 50.0-59.9, adult Start:15-Feb-2019 Instruction Type:Provider Instructions for Treatment How to access health informa tion online Indication:Nonsmoker Start:09-Feb-2019 Instruction Type:Patient Education How to access health informa tion online - Detail Indication:Nonsmoker Start:09-Feb-2019 Instruction Type:Patient Education Patient Instructions Indication:Nonsmoker Start:09-Feb-2019 Instruction Type:Provider Instructions for Treatment How to access health informa tion online Indication:BMI 50.0-59.9, adult Start:22-Jan-2019 Instruction Type:Patient Education How to access health informa tion online - Detail Indication:BMI 50.0-59.9, adult Start:22-Jan-2019 Instruction Type:Patient Education Patient Instructions Indication:BMI 50.0-59.9, adult Start:22-Jan-2019 Instruction Type:Provider Instructions for Treatment How to access health informa tion online Indication:Nonsmoker Start:05-Oct-2018 Instruction Type:Patient Education How to access health informa tion online - Detail Indication:Nonsmoker Start:05-Oct-2018 Instruction Type:Patient Education Patient Instructions Indication:Nonsmoker Start:05-Oct-2018 Instruction Type:Provider Instructions for Treatment How to access health informa tion online Indication:BMI 50.0-59.9, adult Start:13-Jan-2018 Instruction Type:Patient Education How to access health informa tion online - Detail Indication:BMI 50.0-59.9, adult Start:13-Jan-2018 Instruction Type:Patient Education Patient Instructions Indication:BMI 50.0-59.9, adult Start:13-Jan-2018 Instruction Type:Provider Instructions for Treatment How to access health informa tion online Indication:Nonsmoker Start:06-Jan-2018 Instruction Type:Patient Education How to access health informa tion online - Detail Indication:Nonsmoker Start:06-Jan-2018 Instruction Type:Patient Education Patient Instructions Indication:Nonsmoker Start:06-Jan-2018 Instruction Type:Provider Instructions for Treatment [facility]; [facility] Work Phone: Instructions* Name Dates Details Patient Instructions Indication:Non-smoker Start:13-Oct-2022 Instruction Type:Provider Instructions for Treatment How to Access Health Informa tion Online using Patient Portal and [employer] Apps Indication:Non-smoker Start:13-Oct-2022 Instruction Type:Patient Education Patient Instructions Indication:Non-smoker Start:21-Jan-2022 Instruction Type:Provider Instructions for Treatment How to Access Health Informa tion Online using Patient Portal and [employer] Apps Indication:Non-smoker Start:21-Jan-2022 Instruction Type:Patient Education Patient Instructions Indication:Non-smoker Start:09-Nov-2021 Instruction Type:Provider Instructions for Treatment How to Access Health Informa tion Online using Patient Portal and [employer] Apps Indication:Non-smoker Start:09-Nov-2021 Instruction Type:Patient Education Patient Instructions Indication:Non-smoker Start:21-Aug-2021 Instruction Type:Provider Instructions for Treatment How to Access Health Informa tion Online using Patient Portal and [employer] Apps Indication:Non-smoker Start:21-Aug-2021 Instruction Type:Patient Education Patient Instructions Indication:BMI 45.0-49.9, adult Start:29-Jul-2021 Instruction Type:Provider Instructions for Treatment How to Access Health Informa tion Online using Patient Portal and [employer] Apps Indication:BMI 45.0-49.9, adult Start:29-Jul-2021 Instruction Type:Patient Education Patient Instructions Indication:Hypothyroid Start:19-Jul-2021 Instruction Type:Provider Instructions for Treatment Patient Instructions Indication:Non-smoker Start:13-Jul-2021 Instruction Type:Provider Instructions for Treatment How to Access Health Informa tion Online using Patient Portal and [employer] Apps Indication:Non-smoker Start:13-Jul-2021 Instruction Type:Patient Education Patient Instructions Indication:BMI 45.0-49.9, adult Start:25-May-2021 Instruction Type:Provider Instructions for Treatment How to Access Health Informa tion Online using Patient Portal and [employer] Apps Indication:BMI 45.0-49.9, adult Start:25-May-2021 Instruction Type:Patient Education Patient Instructions Indication:Obesity, morbid (more than 100 lbs over ideal weight or BMI > 40) Start:18-Mar-2021 Instruction Type:Provider Instructions for Treatment How to Access Health Informa tion Online using Patient Portal and [employer] Apps Indication:Obesity, morbid (more than 100 lbs over ideal weight or BMI > 40) Start:18-Mar-2021 Instruction Type:Patient Education Patient Instructions Indication:Non-smoker Start:25-Feb-2021 Instruction Type:Provider Instructions for Treatment How to Access Health Informa tion Online using Patient Portal and [employer] Apps Indication:Non-smoker Start:25-Feb-2021 Instruction Type:Patient Education obesity counseling Indication:LUIZA (obstructive sleep apnea) Start:12-Dec-2020 Instruction Type:Provider Instructions for Treatment Patient Instructions Indication:BMI 50.0-59.9, adult Start:12-Dec-2020 Instruction Type:Provider Instructions for Treatment How to Access Health Informa tion Online using Patient Portal and [employer] Apps Indication:BMI 50.0-59.9, adult Start:12-Dec-2020 Instruction Type:Patient Education Patient Instructions Indication:Non-smoker Start:04-Sep-2020 Instruction Type:Provider Instructions for Treatment How to Access Health Informa tion Online using Patient Portal and [employer] Apps Indication:Non-smoker Start:04-Sep-2020 Instruction Type:Patient Education How to access health informa tion online Indication:Non-smoker Start:05-May-2020 Instruction Type:Patient Education How to access health informa tion online - Detail Indication:Non-smoker Start:05-May-2020 Instruction Type:Patient Education Patient Instructions Indication:Non-smoker Start:05-May-2020 Instruction Type:Provider Instructions for Treatment How to access health informa tion online Indication:Non-smoker Start:22-Apr-2020 Instruction Type:Patient Education How to access health informa tion online - Detail Indication:Non-smoker Start:22-Apr-2020 Instruction Type:Patient Education Patient Instructions Indication:Non-smoker Start:22-Apr-2020 Instruction Type:Provider Instructions for Treatment How to access health informa tion online Indication:Urinary frequency Start:27-Feb-2020 Instruction Type:Patient Education How to access health informa tion online - Detail Indication:Urinary frequency Start:27-Feb-2020 Instruction Type:Patient Education Patient Instructions Indication:Urinary frequency Start:27-Feb-2020 Instruction Type:Provider Instructions for Treatment How to access health informa tion online Indication:Non-smoker Start:15-Feb-2020 Instruction Type:Patient Education How to access health informa tion online - Detail Indication:Non-smoker Start:15-Feb-2020 Instruction Type:Patient Education Patient Instructions Indication:Non-smoker Start:15-Feb-2020 Instruction Type:Provider Instructions for Treatment obesity counseling Indication:Hypertension Start:03-Dec-2019 Instruction Type:Provider Instructions for Treatment How to access health informa tion online Indication:BMI 45.0-49.9, adult Start:14-Nov-2019 Instruction Type:Patient Education How to access health informa tion online - Detail Indication:BMI 45.0-49.9, adult Start:14-Nov-2019 Instruction Type:Patient Education Patient Instructions Indication:BMI 45.0-49.9, adult Start:14-Nov-2019 Instruction Type:Provider Instructions for Treatment How to access health informa tion online Indication:Non-smoker Start:01-Nov-2019 Instruction Type:Patient Education How to access health informa tion online - Detail Indication:Non-smoker Start:01-Nov-2019 Instruction Type:Patient Education Patient Instructions Indication:Non-smoker Start:01-Nov-2019 Instruction Type:Provider Instructions for Treatment How to access health informa tion online Indication:Nonsmoker Start:15-Oct-2019 Instruction Type:Patient Education How to access health informa tion online - Detail Indication:Nonsmoker Start:15-Oct-2019 Instruction Type:Patient Education Patient Instructions Indication:Nonsmoker Start:15-Oct-2019 Instruction Type:Provider Instructions for Treatment How to access health informa tion online - Detail Indication:BMI 50.0-59.9, adult Start:02-Apr-2019 Instruction Type:Patient Education How to access health informa tion online Indication:BMI 50.0-59.9, adult Start:02-Apr-2019 Instruction Type:Patient Education Patient Instructions Indication:BMI 50.0-59.9, adult Start:02-Apr-2019 Instruction Type:Provider Instructions for Treatment How to access health informa tion online Indication:BMI 50.0-59.9, adult Start:15-Feb-2019 Instruction Type:Patient Education How to access health informa tion online - Detail Indication:BMI 50.0-59.9, adult Start:15-Feb-2019 Instruction Type:Patient Education Patient Instructions Indication:BMI 50.0-59.9, adult Start:15-Feb-2019 Instruction Type:Provider Instructions for Treatment How to access health informa tion online Indication:Nonsmoker Start:09-Feb-2019 Instruction Type:Patient Education How to access health informa tion online - Detail Indication:Nonsmoker Start:09-Feb-2019 Instruction Type:Patient Education Patient Instructions Indication:Nonsmoker Start:09-Feb-2019 Instruction Type:Provider Instructions for Treatment How to access health informa tion online Indication:BMI 50.0-59.9, adult Start:22-Jan-2019 Instruction Type:Patient Education How to access health informa tion online - Detail Indication:BMI 50.0-59.9, adult Start:22-Jan-2019 Instruction Type:Patient Education Patient Instructions Indication:BMI 50.0-59.9, adult Start:22-Jan-2019 Instruction Type:Provider Instructions for Treatment How to access health informa tion online Indication:Nonsmoker Start:05-Oct-2018 Instruction Type:Patient Education How to access health informa tion online - Detail Indication:Nonsmoker Start:05-Oct-2018 Instruction Type:Patient Education Patient Instructions Indication:Nonsmoker Start:05-Oct-2018 Instruction Type:Provider Instructions for Treatment How to access health informa tion online Indication:BMI 50.0-59.9, adult Start:13-Jan-2018 Instruction Type:Patient Education How to access health informa tion online - Detail Indication:BMI 50.0-59.9, adult Start:13-Jan-2018 Instruction Type:Patient Education Patient Instructions Indication:BMI 50.0-59.9, adult Start:13-Jan-2018 Instruction Type:Provider Instructions for Treatment How to access health informa tion online Indication:Nonsmoker Start:06-Jan-2018 Instruction Type:Patient Education How to access health informa tion online - Detail Indication:Nonsmoker Start:06-Jan-2018 Instruction Type:Patient Education Patient Instructions Indication:Nonsmoker Start:06-Jan-2018 Instruction Type:Provider Instructions for Treatment [facility]; [facility] Work Phone: Instructions* Name Dates Details Patient Instructions Indication:Non-smoker Start:29-Oct-2022 Instruction Type:Provider Instructions for Treatment How to Access Health Informa tion Online using Patient Portal and [employer] Apps Indication:Non-smoker Start:29-Oct-2022 Instruction Type:Patient Education Patient Instructions Indication:Non-smoker Start:13-Oct-2022 Instruction Type:Provider Instructions for Treatment How to Access Health Informa tion Online using Patient Portal and [employer] Apps Indication:Non-smoker Start:13-Oct-2022 Instruction Type:Patient Education Patient Instructions Indication:Non-smoker Start:21-Jan-2022 Instruction Type:Provider Instructions for Treatment How to Access Health Informa tion Online using Patient Portal and [employer] Apps Indication:Non-smoker Start:21-Jan-2022 Instruction Type:Patient Education Patient Instructions Indication:Non-smoker Start:09-Nov-2021 Instruction Type:Provider Instructions for Treatment How to Access Health Informa tion Online using Patient Portal and [employer] Apps Indication:Non-smoker Start:09-Nov-2021 Instruction Type:Patient Education Patient Instructions Indication:Non-smoker Start:21-Aug-2021 Instruction Type:Provider Instructions for Treatment How to Access Health Informa tion Online using Patient Portal and [employer] Apps Indication:Non-smoker Start:21-Aug-2021 Instruction Type:Patient Education Patient Instructions Indication:BMI 45.0-49.9, adult Start:29-Jul-2021 Instruction Type:Provider Instructions for Treatment How to Access Health Informa tion Online using Patient Portal and [employer] Apps Indication:BMI 45.0-49.9, adult Start:29-Jul-2021 Instruction Type:Patient Education Patient Instructions Indication:Hypothyroid Start:19-Jul-2021 Instruction Type:Provider Instructions for Treatment Patient Instructions Indication:Non-smoker Start:13-Jul-2021 Instruction Type:Provider Instructions for Treatment How to Access Health Informa tion Online using Patient Portal and [employer] Apps Indication:Non-smoker Start:13-Jul-2021 Instruction Type:Patient Education Patient Instructions Indication:BMI 45.0-49.9, adult Start:25-May-2021 Instruction Type:Provider Instructions for Treatment How to Access Health Informa tion Online using Patient Portal and [employer] Apps Indication:BMI 45.0-49.9, adult Start:25-May-2021 Instruction Type:Patient Education Patient Instructions Indication:Obesity, morbid (more than 100 lbs over ideal weight or BMI > 40) Start:18-Mar-2021 Instruction Type:Provider Instructions for Treatment How to Access Health Informa tion Online using Patient Portal and [employer] Indication:Obesity, morbid (more than 100 lbs over ideal weight or BMI > 40) Start:18-Mar-2021 Instruction Type:Patient Education Patient Instructions Indication:Non-smoker Start:25-Feb-2021 Instruction Type:Provider Instructions for Treatment How to Access Health Informa tion Online using Patient Portal and [employer] Indication:Non-smoker Start:25-Feb-2021 Instruction Type:Patient Education obesity counseling Indication:LUIZA (obstructive sleep apnea) Start:12-Dec-2020 Instruction Type:Provider Instructions for Treatment Patient Instructions Indication:BMI 50.0-59.9, adult Start:12-Dec-2020 Instruction Type:Provider Instructions for Treatment How to Access Health Informa tion Online using Patient Portal and [employer] Indication:BMI 50.0-59.9, adult Start:12-Dec-2020 Instruction Type:Patient Education Patient Instructions Indication:Non-smoker Start:04-Sep-2020 Instruction Type:Provider Instructions for Treatment How to Access Health Informa tion Online using Patient Portal and [employer] Indication:Non-smoker Start:04-Sep-2020 Instruction Type:Patient Education How to access health informa tion online Indication:Non-smoker Start:05-May-2020 Instruction Type:Patient Education How to access health informa tion online - Detail Indication:Non-smoker Start:05-May-2020 Instruction Type:Patient Education Patient Instructions Indication:Non-smoker Start:05-May-2020 Instruction Type:Provider Instructions for Treatment How to access health informa tion online Indication:Non-smoker Start:22-Apr-2020 Instruction Type:Patient Education How to access health informa tion online - Detail Indication:Non-smoker Start:22-Apr-2020 Instruction Type:Patient Education Patient Instructions Indication:Non-smoker Start:22-Apr-2020 Instruction Type:Provider Instructions for Treatment How to access health informa tion online Indication:Urinary frequency Start:27-Feb-2020 Instruction Type:Patient Education How to access health informa tion online - Detail Indication:Urinary frequency Start:27-Feb-2020 Instruction Type:Patient Education Patient Instructions Indication:Urinary frequency Start:27-Feb-2020 Instruction Type:Provider Instructions for Treatment How to access health informa tion online Indication:Non-smoker Start:15-Feb-2020 Instruction Type:Patient Education How to access health informa tion online - Detail Indication:Non-smoker Start:15-Feb-2020 Instruction Type:Patient Education Patient Instructions Indication:Non-smoker Start:15-Feb-2020 Instruction Type:Provider Instructions for Treatment obesity counseling Indication:Hypertension Start:03-Dec-2019 Instruction Type:Provider Instructions for Treatment How to access health informa tion online Indication:BMI 45.0-49.9, adult Start:14-Nov-2019 Instruction Type:Patient Education How to access health informa tion online - Detail Indication:BMI 45.0-49.9, adult Start:14-Nov-2019 Instruction Type:Patient Education Patient Instructions Indication:BMI 45.0-49.9, adult Start:14-Nov-2019 Instruction Type:Provider Instructions for Treatment How to access health informa tion online Indication:Non-smoker Start:01-Nov-2019 Instruction Type:Patient Education How to access health informa tion online - Detail Indication:Non-smoker Start:01-Nov-2019 Instruction Type:Patient Education Patient Instructions Indication:Non-smoker Start:01-Nov-2019 Instruction Type:Provider Instructions for Treatment How to access health informa tion online Indication:Nonsmoker Start:15-Oct-2019 Instruction Type:Patient Education How to access health informa tion online - Detail Indication:Nonsmoker Start:15-Oct-2019 Instruction Type:Patient Education Patient Instructions Indication:Nonsmoker Start:15-Oct-2019 Instruction Type:Provider Instructions for Treatment How to access health informa tion online - Detail Indication:BMI 50.0-59.9, adult Start:02-Apr-2019 Instruction Type:Patient Education How to access health informa tion online Indication:BMI 50.0-59.9, adult Start:02-Apr-2019 Instruction Type:Patient Education Patient Instructions Indication:BMI 50.0-59.9, adult Start:02-Apr-2019 Instruction Type:Provider Instructions for Treatment How to access health informa tion online Indication:BMI 50.0-59.9, adult Start:15-Feb-2019 Instruction Type:Patient Education How to access health informa tion online - Detail Indication:BMI 50.0-59.9, adult Start:15-Feb-2019 Instruction Type:Patient Education Patient Instructions Indication:BMI 50.0-59.9, adult Start:15-Feb-2019 Instruction Type:Provider Instructions for Treatment How to access health informa tion online Indication:Nonsmoker Start:09-Feb-2019 Instruction Type:Patient Education How to access health informa tion online - Detail Indication:Nonsmoker Start:09-Feb-2019 Instruction Type:Patient Education Patient Instructions Indication:Nonsmoker Start:09-Feb-2019 Instruction Type:Provider Instructions for Treatment How to access health informa tion online Indication:BMI 50.0-59.9, adult Start:22-Jan-2019 Instruction Type:Patient Education How to access health informa tion online - Detail Indication:BMI 50.0-59.9, adult Start:22-Jan-2019 Instruction Type:Patient Education Patient Instructions Indication:BMI 50.0-59.9, adult Start:22-Jan-2019 Instruction Type:Provider Instructions for Treatment How to access health informa tion online Indication:Nonsmoker Start:05-Oct-2018 Instruction Type:Patient Education How to access health informa tion online - Detail Indication:Nonsmoker Start:05-Oct-2018 Instruction Type:Patient Education Patient Instructions Indication:Nonsmoker Start:05-Oct-2018 Instruction Type:Provider Instructions for Treatment How to access health informa tion online Indication:BMI 50.0-59.9, adult Start:13-Jan-2018 Instruction Type:Patient Education How to access health informa tion online - Detail Indication:BMI 50.0-59.9, adult Start:13-Jan-2018 Instruction Type:Patient Education Patient Instructions Indication:BMI 50.0-59.9, adult Start:13-Jan-2018 Instruction Type:Provider Instructions for Treatment How to access health informa tion online Indication:Nonsmoker Start:06-Jan-2018 Instruction Type:Patient Education How to access health informa tion online - Detail Indication:Nonsmoker Start:06-Jan-2018 Instruction Type:Patient Education Patient Instructions Indication:Nonsmoker Start:06-Jan-2018 Instruction Type:Provider Instructions for Treatment [facility]; [facility] Work Phone: Instructions* Name Dates Details Patient Instructions Indication:Non-smoker Start:29-Oct-2022 Instruction Type:Provider Instructions for Treatment How to Access Health Informa tion Online using Patient Portal and [employer] Indication:Non-smoker Start:29-Oct-2022 Instruction Type:Patient Education Patient Instructions Indication:Non-smoker Start:13-Oct-2022 Instruction Type:Provider Instructions for Treatment How to Access Health Informa tion Online using Patient Portal and [employer] Indication:Non-smoker Start:13-Oct-2022 Instruction Type:Patient Education Patient Instructions Indication:Non-smoker Start:21-Jan-2022 Instruction Type:Provider Instructions for Treatment How to Access Health Informa tion Online using Patient Portal and [employer] Indication:Non-smoker Start:21-Jan-2022 Instruction Type:Patient Education Patient Instructions Indication:Non-smoker Start:09-Nov-2021 Instruction Type:Provider Instructions for Treatment How to Access Health Informa tion Online using Patient Portal and [employer] Indication:Non-smoker Start:09-Nov-2021 Instruction Type:Patient Education Patient Instructions Indication:Non-smoker Start:21-Aug-2021 Instruction Type:Provider Instructions for Treatment How to Access Health Informa tion Online using Patient Portal and [employer] Indication:Non-smoker Start:21-Aug-2021 Instruction Type:Patient Education Patient Instructions Indication:BMI 45.0-49.9, adult Start:29-Jul-2021 Instruction Type:Provider Instructions for Treatment How to Access Health Informa tion Online using Patient Portal and [employer] Indication:BMI 45.0-49.9, adult Start:29-Jul-2021 Instruction Type:Patient Education Patient Instructions Indication:Hypothyroid Start:19-Jul-2021 Instruction Type:Provider Instructions for Treatment Patient Instructions Indication:Non-smoker Start:13-Jul-2021 Instruction Type:Provider Instructions for Treatment How to Access Health Informa tion Online using Patient Portal and [employer] Indication:Non-smoker Start:13-Jul-2021 Instruction Type:Patient Education Patient Instructions Indication:BMI 45.0-49.9, adult Start:25-May-2021 Instruction Type:Provider Instructions for Treatment How to Access Health Informa tion Online using Patient Portal and [employer] Indication:BMI 45.0-49.9, adult Start:25-May-2021 Instruction Type:Patient Education Patient Instructions Indication:Obesity, morbid (more than 100 lbs over ideal weight or BMI > 40) Start:18-Mar-2021 Instruction Type:Provider Instructions for Treatment How to Access Health Informa tion Online using Patient Portal and [employer] Indication:Obesity, morbid (more than 100 lbs over ideal weight or BMI > 40) Start:18-Mar-2021 Instruction Type:Patient Education Patient Instructions Indication:Non-smoker Start:25-Feb-2021 Instruction Type:Provider Instructions for Treatment How to Access Health Informa tion Online using Patient Portal and [employer] Indication:Non-smoker Start:25-Feb-2021 Instruction Type:Patient Education obesity counseling Indication:LUIZA (obstructive sleep apnea) Start:12-Dec-2020 Instruction Type:Provider Instructions for Treatment Patient Instructions Indication:BMI 50.0-59.9, adult Start:12-Dec-2020 Instruction Type:Provider Instructions for Treatment How to Access Health Informa tion Online using Patient Portal and [employer] Indication:BMI 50.0-59.9, adult Start:12-Dec-2020 Instruction Type:Patient Education Patient Instructions Indication:Non-smoker Start:04-Sep-2020 Instruction Type:Provider Instructions for Treatment How to Access Health Informa tion Online using Patient Portal and [employer] Indication:Non-smoker Start:04-Sep-2020 Instruction Type:Patient Education How to access health informa tion online Indication:Non-smoker Start:05-May-2020 Instruction Type:Patient Education How to access health informa tion online - Detail Indication:Non-smoker Start:05-May-2020 Instruction Type:Patient Education Patient Instructions Indication:Non-smoker Start:05-May-2020 Instruction Type:Provider Instructions for Treatment How to access health informa tion online Indication:Non-smoker Start:22-Apr-2020 Instruction Type:Patient Education How to access health informa tion online - Detail Indication:Non-smoker Start:22-Apr-2020 Instruction Type:Patient Education Patient Instructions Indication:Non-smoker Start:22-Apr-2020 Instruction Type:Provider Instructions for Treatment How to access health informa tion online Indication:Urinary frequency Start:27-Feb-2020 Instruction Type:Patient Education How to access health informa tion online - Detail Indication:Urinary frequency Start:27-Feb-2020 Instruction Type:Patient Education Patient Instructions Indication:Urinary frequency Start:27-Feb-2020 Instruction Type:Provider Instructions for Treatment How to access health informa tion online Indication:Non-smoker Start:15-Feb-2020 Instruction Type:Patient Education How to access health informa tion online - Detail Indication:Non-smoker Start:15-Feb-2020 Instruction Type:Patient Education Patient Instructions Indication:Non-smoker Start:15-Feb-2020 Instruction Type:Provider Instructions for Treatment obesity counseling Indication:Hypertension Start:03-Dec-2019 Instruction Type:Provider Instructions for Treatment How to access health informa tion online Indication:BMI 45.0-49.9, adult Start:14-Nov-2019 Instruction Type:Patient Education How to access health informa tion online - Detail Indication:BMI 45.0-49.9, adult Start:14-Nov-2019 Instruction Type:Patient Education Patient Instructions Indication:BMI 45.0-49.9, adult Start:14-Nov-2019 Instruction Type:Provider Instructions for Treatment How to access health informa tion online Indication:Non-smoker Start:01-Nov-2019 Instruction Type:Patient Education How to access health informa tion online - Detail Indication:Non-smoker Start:01-Nov-2019 Instruction Type:Patient Education Patient Instructions Indication:Non-smoker Start:01-Nov-2019 Instruction Type:Provider Instructions for Treatment How to access health informa tion online Indication:Nonsmoker Start:15-Oct-2019 Instruction Type:Patient Education How to access health informa tion online - Detail Indication:Nonsmoker Start:15-Oct-2019 Instruction Type:Patient Education Patient Instructions Indication:Nonsmoker Start:15-Oct-2019 Instruction Type:Provider Instructions for Treatment How to access health informa tion online - Detail Indication:BMI 50.0-59.9, adult Start:02-Apr-2019 Instruction Type:Patient Education How to access health informa tion online Indication:BMI 50.0-59.9, adult Start:02-Apr-2019 Instruction Type:Patient Education Patient Instructions Indication:BMI 50.0-59.9, adult Start:02-Apr-2019 Instruction Type:Provider Instructions for Treatment How to access health informa tion online Indication:BMI 50.0-59.9, adult Start:15-Feb-2019 Instruction Type:Patient Education How to access health informa tion online - Detail Indication:BMI 50.0-59.9, adult Start:15-Feb-2019 Instruction Type:Patient Education Patient Instructions Indication:BMI 50.0-59.9, adult Start:15-Feb-2019 Instruction Type:Provider Instructions for Treatment How to access health informa tion online Indication:Nonsmoker Start:09-Feb-2019 Instruction Type:Patient Education How to access health informa tion online - Detail Indication:Nonsmoker Start:09-Feb-2019 Instruction Type:Patient Education Patient Instructions Indication:Nonsmoker Start:09-Feb-2019 Instruction Type:Provider Instructions for Treatment How to access health informa tion online Indication:BMI 50.0-59.9, adult Start:22-Jan-2019 Instruction Type:Patient Education How to access health informa tion online - Detail Indication:BMI 50.0-59.9, adult Start:22-Jan-2019 Instruction Type:Patient Education Patient Instructions Indication:BMI 50.0-59.9, adult Start:22-Jan-2019 Instruction Type:Provider Instructions for Treatment How to access health informa tion online Indication:Nonsmoker Start:05-Oct-2018 Instruction Type:Patient Education How to access health informa tion online - Detail Indication:Nonsmoker Start:05-Oct-2018 Instruction Type:Patient Education Patient Instructions Indication:Nonsmoker Start:05-Oct-2018 Instruction Type:Provider Instructions for Treatment How to access health informa tion online Indication:BMI 50.0-59.9, adult Start:13-Jan-2018 Instruction Type:Patient Education How to access health informa tion online - Detail Indication:BMI 50.0-59.9, adult Start:13-Jan-2018 Instruction Type:Patient Education Patient Instructions Indication:BMI 50.0-59.9, adult Start:13-Jan-2018 Instruction Type:Provider Instructions for Treatment How to access health informa tion online Indication:Nonsmoker Start:06-Jan-2018 Instruction Type:Patient Education How to access health informa tion online - Detail Indication:Nonsmoker Start:06-Jan-2018 Instruction Type:Patient Education Patient Instructions Indication:Nonsmoker Start:06-Jan-2018 Instruction Type:Provider Instructions for Treatment [facility]; [facility] Work Phone: Instructions* Name Dates Details Patient Instructions Indication:Non-smoker Start:29-Oct-2022 Instruction Type:Provider Instructions for Treatment How to Access Health Informa tion Online using Patient Portal and [employer] Indication:Non-smoker Start:29-Oct-2022 Instruction Type:Patient Education Patient Instructions Indication:Non-smoker Start:13-Oct-2022 Instruction Type:Provider Instructions for Treatment How to Access Health Informa tion Online using Patient Portal and [employer] Indication:Non-smoker Start:13-Oct-2022 Instruction Type:Patient Education Patient Instructions Indication:Non-smoker Start:21-Jan-2022 Instruction Type:Provider Instructions for Treatment How to Access Health Informa tion Online using Patient Portal and [employer] Indication:Non-smoker Start:21-Jan-2022 Instruction Type:Patient Education Patient Instructions Indication:Non-smoker Start:09-Nov-2021 Instruction Type:Provider Instructions for Treatment How to Access Health Informa tion Online using Patient Portal and [employer] Indication:Non-smoker Start:09-Nov-2021 Instruction Type:Patient Education Patient Instructions Indication:Non-smoker Start:21-Aug-2021 Instruction Type:Provider Instructions for Treatment How to Access Health Informa tion Online using Patient Portal and [employer] Indication:Non-smoker Start:21-Aug-2021 Instruction Type:Patient Education Patient Instructions Indication:BMI 45.0-49.9, adult Start:29-Jul-2021 Instruction Type:Provider Instructions for Treatment How to Access Health Informa tion Online using Patient Portal and [employer] Indication:BMI 45.0-49.9, adult Start:29-Jul-2021 Instruction Type:Patient Education Patient Instructions Indication:Hypothyroid Start:19-Jul-2021 Instruction Type:Provider Instructions for Treatment Patient Instructions Indication:Non-smoker Start:13-Jul-2021 Instruction Type:Provider Instructions for Treatment How to Access Health Informa tion Online using Patient Portal and [employer] Indication:Non-smoker Start:13-Jul-2021 Instruction Type:Patient Education Patient Instructions Indication:BMI 45.0-49.9, adult Start:25-May-2021 Instruction Type:Provider Instructions for Treatment How to Access Health Informa tion Online using Patient Portal and [employer] Indication:BMI 45.0-49.9, adult Start:25-May-2021 Instruction Type:Patient Education Patient Instructions Indication:Obesity, morbid (more than 100 lbs over ideal weight or BMI > 40) Start:18-Mar-2021 Instruction Type:Provider Instructions for Treatment How to Access Health Informa tion Online using Patient Portal and [employer] Indication:Obesity, morbid (more than 100 lbs over ideal weight or BMI > 40) Start:18-Mar-2021 Instruction Type:Patient Education Patient Instructions Indication:Non-smoker Start:25-Feb-2021 Instruction Type:Provider Instructions for Treatment How to Access Health Informa tion Online using Patient Portal and [employer] Apps Indication:Non-smoker Start:25-Feb-2021 Instruction Type:Patient Education obesity counseling Indication:LUIZA (obstructive sleep apnea) Start:12-Dec-2020 Instruction Type:Provider Instructions for Treatment Patient Instructions Indication:BMI 50.0-59.9, adult Start:12-Dec-2020 Instruction Type:Provider Instructions for Treatment How to Access Health Informa tion Online using Patient Portal and [employer] Indication:BMI 50.0-59.9, adult Start:12-Dec-2020 Instruction Type:Patient Education Patient Instructions Indication:Non-smoker Start:04-Sep-2020 Instruction Type:Provider Instructions for Treatment How to Access Health Informa tion Online using Patient Portal and [employer] Indication:Non-smoker Start:04-Sep-2020 Instruction Type:Patient Education How to access health informa tion online Indication:Non-smoker Start:05-May-2020 Instruction Type:Patient Education How to access health informa tion online - Detail Indication:Non-smoker Start:05-May-2020 Instruction Type:Patient Education Patient Instructions Indication:Non-smoker Start:05-May-2020 Instruction Type:Provider Instructions for Treatment How to access health informa tion online Indication:Non-smoker Start:22-Apr-2020 Instruction Type:Patient Education How to access health informa tion online - Detail Indication:Non-smoker Start:22-Apr-2020 Instruction Type:Patient Education Patient Instructions Indication:Non-smoker Start:22-Apr-2020 Instruction Type:Provider Instructions for Treatment How to access health informa tion online Indication:Urinary frequency Start:27-Feb-2020 Instruction Type:Patient Education How to access health informa tion online - Detail Indication:Urinary frequency Start:27-Feb-2020 Instruction Type:Patient Education Patient Instructions Indication:Urinary frequency Start:27-Feb-2020 Instruction Type:Provider Instructions for Treatment How to access health informa tion online Indication:Non-smoker Start:15-Feb-2020 Instruction Type:Patient Education How to access health informa tion online - Detail Indication:Non-smoker Start:15-Feb-2020 Instruction Type:Patient Education Patient Instructions Indication:Non-smoker Start:15-Feb-2020 Instruction Type:Provider Instructions for Treatment obesity counseling Indication:Hypertension Start:03-Dec-2019 Instruction Type:Provider Instructions for Treatment How to access health informa tion online Indication:BMI 45.0-49.9, adult Start:14-Nov-2019 Instruction Type:Patient Education How to access health informa tion online - Detail Indication:BMI 45.0-49.9, adult Start:14-Nov-2019 Instruction Type:Patient Education Patient Instructions Indication:BMI 45.0-49.9, adult Start:14-Nov-2019 Instruction Type:Provider Instructions for Treatment How to access health informa tion online Indication:Non-smoker Start:01-Nov-2019 Instruction Type:Patient Education How to access health informa tion online - Detail Indication:Non-smoker Start:01-Nov-2019 Instruction Type:Patient Education Patient Instructions Indication:Non-smoker Start:01-Nov-2019 Instruction Type:Provider Instructions for Treatment How to access health informa tion online Indication:Nonsmoker Start:15-Oct-2019 Instruction Type:Patient Education How to access health informa tion online - Detail Indication:Nonsmoker Start:15-Oct-2019 Instruction Type:Patient Education Patient Instructions Indication:Nonsmoker Start:15-Oct-2019 Instruction Type:Provider Instructions for Treatment How to access health informa tion online - Detail Indication:BMI 50.0-59.9, adult Start:02-Apr-2019 Instruction Type:Patient Education How to access health informa tion online Indication:BMI 50.0-59.9, adult Start:02-Apr-2019 Instruction Type:Patient Education Patient Instructions Indication:BMI 50.0-59.9, adult Start:02-Apr-2019 Instruction Type:Provider Instructions for Treatment How to access health informa tion online Indication:BMI 50.0-59.9, adult Start:15-Feb-2019 Instruction Type:Patient Education How to access health informa tion online - Detail Indication:BMI 50.0-59.9, adult Start:15-Feb-2019 Instruction Type:Patient Education Patient Instructions Indication:BMI 50.0-59.9, adult Start:15-Feb-2019 Instruction Type:Provider Instructions for Treatment How to access health informa tion online Indication:Nonsmoker Start:09-Feb-2019 Instruction Type:Patient Education How to access health informa tion online - Detail Indication:Nonsmoker Start:09-Feb-2019 Instruction Type:Patient Education Patient Instructions Indication:Nonsmoker Start:09-Feb-2019 Instruction Type:Provider Instructions for Treatment How to access health informa tion online Indication:BMI 50.0-59.9, adult Start:22-Jan-2019 Instruction Type:Patient Education How to access health informa tion online - Detail Indication:BMI 50.0-59.9, adult Start:22-Jan-2019 Instruction Type:Patient Education Patient Instructions Indication:BMI 50.0-59.9, adult Start:22-Jan-2019 Instruction Type:Provider Instructions for Treatment How to access health informa tion online Indication:Nonsmoker Start:05-Oct-2018 Instruction Type:Patient Education How to access health informa tion online - Detail Indication:Nonsmoker Start:05-Oct-2018 Instruction Type:Patient Education Patient Instructions Indication:Nonsmoker Start:05-Oct-2018 Instruction Type:Provider Instructions for Treatment How to access health informa tion online Indication:BMI 50.0-59.9, adult Start:13-Jan-2018 Instruction Type:Patient Education How to access health informa tion online - Detail Indication:BMI 50.0-59.9, adult Start:13-Jan-2018 Instruction Type:Patient Education Patient Instructions Indication:BMI 50.0-59.9, adult Start:13-Jan-2018 Instruction Type:Provider Instructions for Treatment How to access health informa tion online Indication:Nonsmoker Start:06-Jan-2018 Instruction Type:Patient Education How to access health informa tion online - Detail Indication:Nonsmoker Start:06-Jan-2018 Instruction Type:Patient Education Patient Instructions Indication:Nonsmoker Start:06-Jan-2018 Instruction Type:Provider Instructions for Treatment [facility]; [facility] Work Phone: Instructions* Name Dates Details Patient Instructions Indication:Non-smoker Start:29-Oct-2022 Instruction Type:Provider Instructions for Treatment How to Access Health Informa tion Online using Patient Portal and [employer] Apps Indication:Non-smoker Start:29-Oct-2022 Instruction Type:Patient Education Patient Instructions Indication:Non-smoker Start:13-Oct-2022 Instruction Type:Provider Instructions for Treatment How to Access Health Informa tion Online using Patient Portal and [employer] Apps Indication:Non-smoker Start:13-Oct-2022 Instruction Type:Patient Education Patient Instructions Indication:Non-smoker Start:21-Jan-2022 Instruction Type:Provider Instructions for Treatment How to Access Health Informa tion Online using Patient Portal and [employer] Apps Indication:Non-smoker Start:21-Jan-2022 Instruction Type:Patient Education Patient Instructions Indication:Non-smoker Start:09-Nov-2021 Instruction Type:Provider Instructions for Treatment How to Access Health Informa tion Online using Patient Portal and [employer] Apps Indication:Non-smoker Start:09-Nov-2021 Instruction Type:Patient Education Patient Instructions Indication:Non-smoker Start:21-Aug-2021 Instruction Type:Provider Instructions for Treatment How to Access Health Informa tion Online using Patient Portal and [employer] Apps Indication:Non-smoker Start:21-Aug-2021 Instruction Type:Patient Education Patient Instructions Indication:BMI 45.0-49.9, adult Start:29-Jul-2021 Instruction Type:Provider Instructions for Treatment How to Access Health Informa tion Online using Patient Portal and [employer] Apps Indication:BMI 45.0-49.9, adult Start:29-Jul-2021 Instruction Type:Patient Education Patient Instructions Indication:Hypothyroid Start:19-Jul-2021 Instruction Type:Provider Instructions for Treatment Patient Instructions Indication:Non-smoker Start:13-Jul-2021 Instruction Type:Provider Instructions for Treatment How to Access Health Informa tion Online using Patient Portal and [employer] Apps Indication:Non-smoker Start:13-Jul-2021 Instruction Type:Patient Education Patient Instructions Indication:BMI 45.0-49.9, adult Start:25-May-2021 Instruction Type:Provider Instructions for Treatment How to Access Health Informa tion Online using Patient Portal and [employer] Apps Indication:BMI 45.0-49.9, adult Start:25-May-2021 Instruction Type:Patient Education Patient Instructions Indication:Obesity, morbid (more than 100 lbs over ideal weight or BMI > 40) Start:18-Mar-2021 Instruction Type:Provider Instructions for Treatment How to Access Health Informa tion Online using Patient Portal and [employer] Apps Indication:Obesity, morbid (more than 100 lbs over ideal weight or BMI > 40) Start:18-Mar-2021 Instruction Type:Patient Education Patient Instructions Indication:Non-smoker Start:25-Feb-2021 Instruction Type:Provider Instructions for Treatment How to Access Health Informa tion Online using Patient Portal and [employer] Apps Indication:Non-smoker Start:25-Feb-2021 Instruction Type:Patient Education obesity counseling Indication:LUIZA (obstructive sleep apnea) Start:12-Dec-2020 Instruction Type:Provider Instructions for Treatment Patient Instructions Indication:BMI 50.0-59.9, adult Start:12-Dec-2020 Instruction Type:Provider Instructions for Treatment How to Access Health Informa tion Online using Patient Portal and [employer] Apps Indication:BMI 50.0-59.9, adult Start:12-Dec-2020 Instruction Type:Patient Education Patient Instructions Indication:Non-smoker Start:04-Sep-2020 Instruction Type:Provider Instructions for Treatment How to Access Health Informa tion Online using Patient Portal and [employer] Apps Indication:Non-smoker Start:04-Sep-2020 Instruction Type:Patient Education How to access health informa tion online Indication:Non-smoker Start:05-May-2020 Instruction Type:Patient Education How to access health informa tion online - Detail Indication:Non-smoker Start:05-May-2020 Instruction Type:Patient Education Patient Instructions Indication:Non-smoker Start:05-May-2020 Instruction Type:Provider Instructions for Treatment How to access health informa tion online Indication:Non-smoker Start:22-Apr-2020 Instruction Type:Patient Education How to access health informa tion online - Detail Indication:Non-smoker Start:22-Apr-2020 Instruction Type:Patient Education Patient Instructions Indication:Non-smoker Start:22-Apr-2020 Instruction Type:Provider Instructions for Treatment How to access health informa tion online Indication:Urinary frequency Start:27-Feb-2020 Instruction Type:Patient Education How to access health informa tion online - Detail Indication:Urinary frequency Start:27-Feb-2020 Instruction Type:Patient Education Patient Instructions Indication:Urinary frequency Start:27-Feb-2020 Instruction Type:Provider Instructions for Treatment How to access health informa tion online Indication:Non-smoker Start:15-Feb-2020 Instruction Type:Patient Education How to access health informa tion online - Detail Indication:Non-smoker Start:15-Feb-2020 Instruction Type:Patient Education Patient Instructions Indication:Non-smoker Start:15-Feb-2020 Instruction Type:Provider Instructions for Treatment obesity counseling Indication:Hypertension Start:03-Dec-2019 Instruction Type:Provider Instructions for Treatment How to access health informa tion online Indication:BMI 45.0-49.9, adult Start:14-Nov-2019 Instruction Type:Patient Education How to access health informa tion online - Detail Indication:BMI 45.0-49.9, adult Start:14-Nov-2019 Instruction Type:Patient Education Patient Instructions Indication:BMI 45.0-49.9, adult Start:14-Nov-2019 Instruction Type:Provider Instructions for Treatment How to access health informa tion online Indication:Non-smoker Start:01-Nov-2019 Instruction Type:Patient Education How to access health informa tion online - Detail Indication:Non-smoker Start:01-Nov-2019 Instruction Type:Patient Education Patient Instructions Indication:Non-smoker Start:01-Nov-2019 Instruction Type:Provider Instructions for Treatment How to access health informa tion online Indication:Nonsmoker Start:15-Oct-2019 Instruction Type:Patient Education How to access health informa tion online - Detail Indication:Nonsmoker Start:15-Oct-2019 Instruction Type:Patient Education Patient Instructions Indication:Nonsmoker Start:15-Oct-2019 Instruction Type:Provider Instructions for Treatment How to access health informa tion online - Detail Indication:BMI 50.0-59.9, adult Start:02-Apr-2019 Instruction Type:Patient Education How to access health informa tion online Indication:BMI 50.0-59.9, adult Start:02-Apr-2019 Instruction Type:Patient Education Patient Instructions Indication:BMI 50.0-59.9, adult Start:02-Apr-2019 Instruction Type:Provider Instructions for Treatment How to access health informa tion online Indication:BMI 50.0-59.9, adult Start:15-Feb-2019 Instruction Type:Patient Education How to access health informa tion online - Detail Indication:BMI 50.0-59.9, adult Start:15-Feb-2019 Instruction Type:Patient Education Patient Instructions Indication:BMI 50.0-59.9, adult Start:15-Feb-2019 Instruction Type:Provider Instructions for Treatment How to access health informa tion online Indication:Nonsmoker Start:09-Feb-2019 Instruction Type:Patient Education How to access health informa tion online - Detail Indication:Nonsmoker Start:09-Feb-2019 Instruction Type:Patient Education Patient Instructions Indication:Nonsmoker Start:09-Feb-2019 Instruction Type:Provider Instructions for Treatment How to access health informa tion online Indication:BMI 50.0-59.9, adult Start:22-Jan-2019 Instruction Type:Patient Education How to access health informa tion online - Detail Indication:BMI 50.0-59.9, adult Start:22-Jan-2019 Instruction Type:Patient Education Patient Instructions Indication:BMI 50.0-59.9, adult Start:22-Jan-2019 Instruction Type:Provider Instructions for Treatment How to access health informa tion online Indication:Nonsmoker Start:05-Oct-2018 Instruction Type:Patient Education How to access health informa tion online - Detail Indication:Nonsmoker Start:05-Oct-2018 Instruction Type:Patient Education Patient Instructions Indication:Nonsmoker Start:05-Oct-2018 Instruction Type:Provider Instructions for Treatment How to access health informa tion online Indication:BMI 50.0-59.9, adult Start:13-Jan-2018 Instruction Type:Patient Education How to access health informa tion online - Detail Indication:BMI 50.0-59.9, adult Start:13-Jan-2018 Instruction Type:Patient Education Patient Instructions Indication:BMI 50.0-59.9, adult Start:13-Jan-2018 Instruction Type:Provider Instructions for Treatment How to access health informa tion online Indication:Nonsmoker Start:06-Jan-2018 Instruction Type:Patient Education How to access health informa tion online - Detail Indication:Nonsmoker Start:06-Jan-2018 Instruction Type:Patient Education Patient Instructions Indication:Nonsmoker Start:06-Jan-2018 Instruction Type:Provider Instructions for Treatment [facility]; [facility] Work Phone: Instructions* Name Dates Details How to Access Health Informa tion Online using Patient Portal and [employer] Apps Indication:Obesity, morbid (more than 100 lbs over ideal weight or BMI > 40) Start:16-Feb-2023 Instruction Type:Patient Education Patient Instructions Indication:Obesity, morbid (more than 100 lbs over ideal weight or BMI > 40) Start:16-Feb-2023 Instruction Type:Provider Instructions for Treatment Patient Instructions Indication:Non-smoker Start:29-Oct-2022 Instruction Type:Provider Instructions for Treatment How to Access Health Informa tion Online using Patient Portal and [employer] Apps Indication:Non-smoker Start:29-Oct-2022 Instruction Type:Patient Education Patient Instructions Indication:Non-smoker Start:13-Oct-2022 Instruction Type:Provider Instructions for Treatment How to Access Health Informa tion Online using Patient Portal and [employer] Apps Indication:Non-smoker Start:13-Oct-2022 Instruction Type:Patient Education Patient Instructions Indication:Non-smoker Start:21-Jan-2022 Instruction Type:Provider Instructions for Treatment How to Access Health Informa tion Online using Patient Portal and [employer] Apps Indication:Non-smoker Start:21-Jan-2022 Instruction Type:Patient Education Patient Instructions Indication:Non-smoker Start:09-Nov-2021 Instruction Type:Provider Instructions for Treatment How to Access Health Informa tion Online using Patient Portal and [employer] Apps Indication:Non-smoker Start:09-Nov-2021 Instruction Type:Patient Education Patient Instructions Indication:Non-smoker Start:21-Aug-2021 Instruction Type:Provider Instructions for Treatment How to Access Health Informa tion Online using Patient Portal and [employer] Apps Indication:Non-smoker Start:21-Aug-2021 Instruction Type:Patient Education Patient Instructions Indication:BMI 45.0-49.9, adult Start:29-Jul-2021 Instruction Type:Provider Instructions for Treatment How to Access Health Informa tion Online using Patient Portal and [employer] Apps Indication:BMI 45.0-49.9, adult Start:29-Jul-2021 Instruction Type:Patient Education Patient Instructions Indication:Hypothyroid Start:19-Jul-2021 Instruction Type:Provider Instructions for Treatment Patient Instructions Indication:Non-smoker Start:13-Jul-2021 Instruction Type:Provider Instructions for Treatment How to Access Health Informa tion Online using Patient Portal and [employer] Apps Indication:Non-smoker Start:13-Jul-2021 Instruction Type:Patient Education Patient Instructions Indication:BMI 45.0-49.9, adult Start:25-May-2021 Instruction Type:Provider Instructions for Treatment How to Access Health Informa tion Online using Patient Portal and [employer] Apps Indication:BMI 45.0-49.9, adult Start:25-May-2021 Instruction Type:Patient Education Patient Instructions Indication:Obesity, morbid (more than 100 lbs over ideal weight or BMI > 40) Start:18-Mar-2021 Instruction Type:Provider Instructions for Treatment How to Access Health Informa tion Online using Patient Portal and [employer] Apps Indication:Obesity, morbid (more than 100 lbs over ideal weight or BMI > 40) Start:18-Mar-2021 Instruction Type:Patient Education Patient Instructions Indication:Non-smoker Start:25-Feb-2021 Instruction Type:Provider Instructions for Treatment How to Access Health Informa tion Online using Patient Portal and [employer] Apps Indication:Non-smoker Start:25-Feb-2021 Instruction Type:Patient Education obesity counseling Indication:LUIZA (obstructive sleep apnea) Start:12-Dec-2020 Instruction Type:Provider Instructions for Treatment Patient Instructions Indication:BMI 50.0-59.9, adult Start:12-Dec-2020 Instruction Type:Provider Instructions for Treatment How to Access Health Informa tion Online using Patient Portal and [employer] Apps Indication:BMI 50.0-59.9, adult Start:12-Dec-2020 Instruction Type:Patient Education Patient Instructions Indication:Non-smoker Start:04-Sep-2020 Instruction Type:Provider Instructions for Treatment How to Access Health Informa tion Online using Patient Portal and [employer] Apps Indication:Non-smoker Start:04-Sep-2020 Instruction Type:Patient Education How to access health informa tion online Indication:Non-smoker Start:05-May-2020 Instruction Type:Patient Education How to access health informa tion online - Detail Indication:Non-smoker Start:05-May-2020 Instruction Type:Patient Education Patient Instructions Indication:Non-smoker Start:05-May-2020 Instruction Type:Provider Instructions for Treatment How to access health informa tion online Indication:Non-smoker Start:22-Apr-2020 Instruction Type:Patient Education How to access health informa tion online - Detail Indication:Non-smoker Start:22-Apr-2020 Instruction Type:Patient Education Patient Instructions Indication:Non-smoker Start:22-Apr-2020 Instruction Type:Provider Instructions for Treatment How to access health informa tion online Indication:Urinary frequency Start:27-Feb-2020 Instruction Type:Patient Education How to access health informa tion online - Detail Indication:Urinary frequency Start:27-Feb-2020 Instruction Type:Patient Education Patient Instructions Indication:Urinary frequency Start:27-Feb-2020 Instruction Type:Provider Instructions for Treatment How to access health informa tion online Indication:Non-smoker Start:15-Feb-2020 Instruction Type:Patient Education How to access health informa tion online - Detail Indication:Non-smoker Start:15-Feb-2020 Instruction Type:Patient Education Patient Instructions Indication:Non-smoker Start:15-Feb-2020 Instruction Type:Provider Instructions for Treatment obesity counseling Indication:Hypertension Start:03-Dec-2019 Instruction Type:Provider Instructions for Treatment How to access health informa tion online Indication:BMI 45.0-49.9, adult Start:14-Nov-2019 Instruction Type:Patient Education How to access health informa tion online - Detail Indication:BMI 45.0-49.9, adult Start:14-Nov-2019 Instruction Type:Patient Education Patient Instructions Indication:BMI 45.0-49.9, adult Start:14-Nov-2019 Instruction Type:Provider Instructions for Treatment How to access health informa tion online Indication:Non-smoker Start:01-Nov-2019 Instruction Type:Patient Education How to access health informa tion online - Detail Indication:Non-smoker Start:01-Nov-2019 Instruction Type:Patient Education Patient Instructions Indication:Non-smoker Start:01-Nov-2019 Instruction Type:Provider Instructions for Treatment How to access health informa tion online Indication:Nonsmoker Start:15-Oct-2019 Instruction Type:Patient Education How to access health informa tion online - Detail Indication:Nonsmoker Start:15-Oct-2019 Instruction Type:Patient Education Patient Instructions Indication:Nonsmoker Start:15-Oct-2019 Instruction Type:Provider Instructions for Treatment How to access health informa tion online - Detail Indication:BMI 50.0-59.9, adult Start:02-Apr-2019 Instruction Type:Patient Education How to access health informa tion online Indication:BMI 50.0-59.9, adult Start:02-Apr-2019 Instruction Type:Patient Education Patient Instructions Indication:BMI 50.0-59.9, adult Start:02-Apr-2019 Instruction Type:Provider Instructions for Treatment How to access health informa tion online Indication:BMI 50.0-59.9, adult Start:15-Feb-2019 Instruction Type:Patient Education How to access health informa tion online - Detail Indication:BMI 50.0-59.9, adult Start:15-Feb-2019 Instruction Type:Patient Education Patient Instructions Indication:BMI 50.0-59.9, adult Start:15-Feb-2019 Instruction Type:Provider Instructions for Treatment How to access health informa tion online Indication:Nonsmoker Start:09-Feb-2019 Instruction Type:Patient Education How to access health informa tion online - Detail Indication:Nonsmoker Start:09-Feb-2019 Instruction Type:Patient Education Patient Instructions Indication:Nonsmoker Start:09-Feb-2019 Instruction Type:Provider Instructions for Treatment How to access health informa tion online Indication:BMI 50.0-59.9, adult Start:22-Jan-2019 Instruction Type:Patient Education How to access health informa tion online - Detail Indication:BMI 50.0-59.9, adult Start:22-Jan-2019 Instruction Type:Patient Education Patient Instructions Indication:BMI 50.0-59.9, adult Start:22-Jan-2019 Instruction Type:Provider Instructions for Treatment How to access health informa tion online Indication:Nonsmoker Start:05-Oct-2018 Instruction Type:Patient Education How to access health informa tion online - Detail Indication:Nonsmoker Start:05-Oct-2018 Instruction Type:Patient Education Patient Instructions Indication:Nonsmoker Start:05-Oct-2018 Instruction Type:Provider Instructions for Treatment How to access health informa tion online Indication:BMI 50.0-59.9, adult Start:13-Jan-2018 Instruction Type:Patient Education How to access health informa tion online - Detail Indication:BMI 50.0-59.9, adult Start:13-Jan-2018 Instruction Type:Patient Education Patient Instructions Indication:BMI 50.0-59.9, adult Start:13-Jan-2018 Instruction Type:Provider Instructions for Treatment How to access health informa tion online Indication:Nonsmoker Start:06-Jan-2018 Instruction Type:Patient Education How to access health informa tion online - Detail Indication:Nonsmoker Start:06-Jan-2018 Instruction Type:Patient Education Patient Instructions Indication:Nonsmoker Start:06-Jan-2018 Instruction Type:Provider Instructions for Treatment [facility]; [facility] Work Phone: Instructions* Name Dates Details How to Access Health Informa tion Online using Patient Portal and [employer] Apps Indication:Obesity, morbid (more than 100 lbs over ideal weight or BMI > 40) Start:16-Feb-2023 Instruction Type:Patient Education Patient Instructions Indication:Obesity, morbid (more than 100 lbs over ideal weight or BMI > 40) Start:16-Feb-2023 Instruction Type:Provider Instructions for Treatment Patient Instructions Indication:Non-smoker Start:29-Oct-2022 Instruction Type:Provider Instructions for Treatment How to Access Health Informa tion Online using Patient Portal and [employer] Apps Indication:Non-smoker Start:29-Oct-2022 Instruction Type:Patient Education Patient Instructions Indication:Non-smoker Start:13-Oct-2022 Instruction Type:Provider Instructions for Treatment How to Access Health Informa tion Online using Patient Portal and [employer] Apps Indication:Non-smoker Start:13-Oct-2022 Instruction Type:Patient Education Patient Instructions Indication:Non-smoker Start:21-Jan-2022 Instruction Type:Provider Instructions for Treatment How to Access Health Informa tion Online using Patient Portal and [employer] Apps Indication:Non-smoker Start:21-Jan-2022 Instruction Type:Patient Education Patient Instructions Indication:Non-smoker Start:09-Nov-2021 Instruction Type:Provider Instructions for Treatment How to Access Health Informa tion Online using Patient Portal and [employer] Apps Indication:Non-smoker Start:09-Nov-2021 Instruction Type:Patient Education Patient Instructions Indication:Non-smoker Start:21-Aug-2021 Instruction Type:Provider Instructions for Treatment How to Access Health Informa tion Online using Patient Portal and [employer] Apps Indication:Non-smoker Start:21-Aug-2021 Instruction Type:Patient Education Patient Instructions Indication:BMI 45.0-49.9, adult Start:29-Jul-2021 Instruction Type:Provider Instructions for Treatment How to Access Health Informa tion Online using Patient Portal and [employer] Apps Indication:BMI 45.0-49.9, adult Start:29-Jul-2021 Instruction Type:Patient Education Patient Instructions Indication:Hypothyroid Start:19-Jul-2021 Instruction Type:Provider Instructions for Treatment Patient Instructions Indication:Non-smoker Start:13-Jul-2021 Instruction Type:Provider Instructions for Treatment How to Access Health Informa tion Online using Patient Portal and [employer] Apps Indication:Non-smoker Start:13-Jul-2021 Instruction Type:Patient Education Patient Instructions Indication:BMI 45.0-49.9, adult Start:25-May-2021 Instruction Type:Provider Instructions for Treatment How to Access Health Informa tion Online using Patient Portal and [employer] Apps Indication:BMI 45.0-49.9, adult Start:25-May-2021 Instruction Type:Patient Education Patient Instructions Indication:Obesity, morbid (more than 100 lbs over ideal weight or BMI > 40) Start:18-Mar-2021 Instruction Type:Provider Instructions for Treatment How to Access Health Informa tion Online using Patient Portal and [employer] Apps Indication:Obesity, morbid (more than 100 lbs over ideal weight or BMI > 40) Start:18-Mar-2021 Instruction Type:Patient Education Patient Instructions Indication:Non-smoker Start:25-Feb-2021 Instruction Type:Provider Instructions for Treatment How to Access Health Informa tion Online using Patient Portal and [employer] Apps Indication:Non-smoker Start:25-Feb-2021 Instruction Type:Patient Education obesity counseling Indication:LUIZA (obstructive sleep apnea) Start:12-Dec-2020 Instruction Type:Provider Instructions for Treatment Patient Instructions Indication:BMI 50.0-59.9, adult Start:12-Dec-2020 Instruction Type:Provider Instructions for Treatment How to Access Health Informa tion Online using Patient Portal and [employer] Apps Indication:BMI 50.0-59.9, adult Start:12-Dec-2020 Instruction Type:Patient Education Patient Instructions Indication:Non-smoker Start:04-Sep-2020 Instruction Type:Provider Instructions for Treatment How to Access Health Informa tion Online using Patient Portal and [employer] Apps Indication:Non-smoker Start:04-Sep-2020 Instruction Type:Patient Education How to access health informa tion online Indication:Non-smoker Start:05-May-2020 Instruction Type:Patient Education How to access health informa tion online - Detail Indication:Non-smoker Start:05-May-2020 Instruction Type:Patient Education Patient Instructions Indication:Non-smoker Start:05-May-2020 Instruction Type:Provider Instructions for Treatment How to access health informa tion online Indication:Non-smoker Start:22-Apr-2020 Instruction Type:Patient Education How to access health informa tion online - Detail Indication:Non-smoker Start:22-Apr-2020 Instruction Type:Patient Education Patient Instructions Indication:Non-smoker Start:22-Apr-2020 Instruction Type:Provider Instructions for Treatment How to access health informa tion online Indication:Urinary frequency Start:27-Feb-2020 Instruction Type:Patient Education How to access health informa tion online - Detail Indication:Urinary frequency Start:27-Feb-2020 Instruction Type:Patient Education Patient Instructions Indication:Urinary frequency Start:27-Feb-2020 Instruction Type:Provider Instructions for Treatment How to access health informa tion online Indication:Non-smoker Start:15-Feb-2020 Instruction Type:Patient Education How to access health informa tion online - Detail Indication:Non-smoker Start:15-Feb-2020 Instruction Type:Patient Education Patient Instructions Indication:Non-smoker Start:15-Feb-2020 Instruction Type:Provider Instructions for Treatment obesity counseling Indication:Hypertension Start:03-Dec-2019 Instruction Type:Provider Instructions for Treatment How to access health informa tion online Indication:BMI 45.0-49.9, adult Start:14-Nov-2019 Instruction Type:Patient Education How to access health informa tion online - Detail Indication:BMI 45.0-49.9, adult Start:14-Nov-2019 Instruction Type:Patient Education Patient Instructions Indication:BMI 45.0-49.9, adult Start:14-Nov-2019 Instruction Type:Provider Instructions for Treatment How to access health informa tion online Indication:Non-smoker Start:01-Nov-2019 Instruction Type:Patient Education How to access health informa tion online - Detail Indication:Non-smoker Start:01-Nov-2019 Instruction Type:Patient Education Patient Instructions Indication:Non-smoker Start:01-Nov-2019 Instruction Type:Provider Instructions for Treatment How to access health informa tion online Indication:Nonsmoker Start:15-Oct-2019 Instruction Type:Patient Education How to access health informa tion online - Detail Indication:Nonsmoker Start:15-Oct-2019 Instruction Type:Patient Education Patient Instructions Indication:Nonsmoker Start:15-Oct-2019 Instruction Type:Provider Instructions for Treatment How to access health informa tion online - Detail Indication:BMI 50.0-59.9, adult Start:02-Apr-2019 Instruction Type:Patient Education How to access health informa tion online Indication:BMI 50.0-59.9, adult Start:02-Apr-2019 Instruction Type:Patient Education Patient Instructions Indication:BMI 50.0-59.9, adult Start:02-Apr-2019 Instruction Type:Provider Instructions for Treatment How to access health informa tion online Indication:BMI 50.0-59.9, adult Start:15-Feb-2019 Instruction Type:Patient Education How to access health informa tion online - Detail Indication:BMI 50.0-59.9, adult Start:15-Feb-2019 Instruction Type:Patient Education Patient Instructions Indication:BMI 50.0-59.9, adult Start:15-Feb-2019 Instruction Type:Provider Instructions for Treatment How to access health informa tion online Indication:Nonsmoker Start:09-Feb-2019 Instruction Type:Patient Education How to access health informa tion online - Detail Indication:Nonsmoker Start:09-Feb-2019 Instruction Type:Patient Education Patient Instructions Indication:Nonsmoker Start:09-Feb-2019 Instruction Type:Provider Instructions for Treatment How to access health informa tion online Indication:BMI 50.0-59.9, adult Start:22-Jan-2019 Instruction Type:Patient Education How to access health informa tion online - Detail Indication:BMI 50.0-59.9, adult Start:22-Jan-2019 Instruction Type:Patient Education Patient Instructions Indication:BMI 50.0-59.9, adult Start:22-Jan-2019 Instruction Type:Provider Instructions for Treatment How to access health informa tion online Indication:Nonsmoker Start:05-Oct-2018 Instruction Type:Patient Education How to access health informa tion online - Detail Indication:Nonsmoker Start:05-Oct-2018 Instruction Type:Patient Education Patient Instructions Indication:Nonsmoker Start:05-Oct-2018 Instruction Type:Provider Instructions for Treatment How to access health informa tion online Indication:BMI 50.0-59.9, adult Start:13-Jan-2018 Instruction Type:Patient Education How to access health informa tion online - Detail Indication:BMI 50.0-59.9, adult Start:13-Jan-2018 Instruction Type:Patient Education Patient Instructions Indication:BMI 50.0-59.9, adult Start:13-Jan-2018 Instruction Type:Provider Instructions for Treatment How to access health informa tion online Indication:Nonsmoker Start:06-Jan-2018 Instruction Type:Patient Education How to access health informa tion online - Detail Indication:Nonsmoker Start:06-Jan-2018 Instruction Type:Patient Education Patient Instructions Indication:Nonsmoker Start:06-Jan-2018 Instruction Type:Provider Instructions for Treatment [facility]; [facility] Work Phone: Instructions* Name Dates Details How to Access Health Informa tion Online using Patient Portal and [employer] Indication:Obesity, morbid (more than 100 lbs over ideal weight or BMI > 40) Start:16-Feb-2023 Instruction Type:Patient Education Patient Instructions Indication:Obesity, morbid (more than 100 lbs over ideal weight or BMI > 40) Start:16-Feb-2023 Instruction Type:Provider Instructions for Treatment Patient Instructions Indication:Non-smoker Start:29-Oct-2022 Instruction Type:Provider Instructions for Treatment How to Access Health Informa tion Online using Patient Portal and [employer] Indication:Non-smoker Start:29-Oct-2022 Instruction Type:Patient Education Patient Instructions Indication:Non-smoker Start:13-Oct-2022 Instruction Type:Provider Instructions for Treatment How to Access Health Informa tion Online using Patient Portal and [employer] Indication:Non-smoker Start:13-Oct-2022 Instruction Type:Patient Education Patient Instructions Indication:Non-smoker Start:21-Jan-2022 Instruction Type:Provider Instructions for Treatment How to Access Health Informa tion Online using Patient Portal and [employer] Indication:Non-smoker Start:21-Jan-2022 Instruction Type:Patient Education Patient Instructions Indication:Non-smoker Start:09-Nov-2021 Instruction Type:Provider Instructions for Treatment How to Access Health Informa tion Online using Patient Portal and [employer] Indication:Non-smoker Start:09-Nov-2021 Instruction Type:Patient Education Patient Instructions Indication:Non-smoker Start:21-Aug-2021 Instruction Type:Provider Instructions for Treatment How to Access Health Informa tion Online using Patient Portal and [employer] Indication:Non-smoker Start:21-Aug-2021 Instruction Type:Patient Education Patient Instructions Indication:BMI 45.0-49.9, adult Start:29-Jul-2021 Instruction Type:Provider Instructions for Treatment How to Access Health Informa tion Online using Patient Portal and [employer] Indication:BMI 45.0-49.9, adult Start:29-Jul-2021 Instruction Type:Patient Education Patient Instructions Indication:Hypothyroid Start:19-Jul-2021 Instruction Type:Provider Instructions for Treatment Patient Instructions Indication:Non-smoker Start:13-Jul-2021 Instruction Type:Provider Instructions for Treatment How to Access Health Informa tion Online using Patient Portal and [employer] Indication:Non-smoker Start:13-Jul-2021 Instruction Type:Patient Education Patient Instructions Indication:BMI 45.0-49.9, adult Start:25-May-2021 Instruction Type:Provider Instructions for Treatment How to Access Health Informa tion Online using Patient Portal and [employer] Indication:BMI 45.0-49.9, adult Start:25-May-2021 Instruction Type:Patient Education Patient Instructions Indication:Obesity, morbid (more than 100 lbs over ideal weight or BMI > 40) Start:18-Mar-2021 Instruction Type:Provider Instructions for Treatment How to Access Health Informa tion Online using Patient Portal and [employer] Indication:Obesity, morbid (more than 100 lbs over ideal weight or BMI > 40) Start:18-Mar-2021 Instruction Type:Patient Education Patient Instructions Indication:Non-smoker Start:25-Feb-2021 Instruction Type:Provider Instructions for Treatment How to Access Health Informa tion Online using Patient Portal and [employer] Indication:Non-smoker Start:25-Feb-2021 Instruction Type:Patient Education obesity counseling Indication:LUIZA (obstructive sleep apnea) Start:12-Dec-2020 Instruction Type:Provider Instructions for Treatment Patient Instructions Indication:BMI 50.0-59.9, adult Start:12-Dec-2020 Instruction Type:Provider Instructions for Treatment How to Access Health Informa tion Online using Patient Portal and [employer] Indication:BMI 50.0-59.9, adult Start:12-Dec-2020 Instruction Type:Patient Education Patient Instructions Indication:Non-smoker Start:04-Sep-2020 Instruction Type:Provider Instructions for Treatment How to Access Health Informa tion Online using Patient Portal and [employer] Indication:Non-smoker Start:04-Sep-2020 Instruction Type:Patient Education How to access health informa tion online Indication:Non-smoker Start:05-May-2020 Instruction Type:Patient Education How to access health informa tion online - Detail Indication:Non-smoker Start:05-May-2020 Instruction Type:Patient Education Patient Instructions Indication:Non-smoker Start:05-May-2020 Instruction Type:Provider Instructions for Treatment How to access health informa tion online Indication:Non-smoker Start:22-Apr-2020 Instruction Type:Patient Education How to access health informa tion online - Detail Indication:Non-smoker Start:22-Apr-2020 Instruction Type:Patient Education Patient Instructions Indication:Non-smoker Start:22-Apr-2020 Instruction Type:Provider Instructions for Treatment How to access health informa tion online Indication:Urinary frequency Start:27-Feb-2020 Instruction Type:Patient Education How to access health informa tion online - Detail Indication:Urinary frequency Start:27-Feb-2020 Instruction Type:Patient Education Patient Instructions Indication:Urinary frequency Start:27-Feb-2020 Instruction Type:Provider Instructions for Treatment How to access health informa tion online Indication:Non-smoker Start:15-Feb-2020 Instruction Type:Patient Education How to access health informa tion online - Detail Indication:Non-smoker Start:15-Feb-2020 Instruction Type:Patient Education Patient Instructions Indication:Non-smoker Start:15-Feb-2020 Instruction Type:Provider Instructions for Treatment obesity counseling Indication:Hypertension Start:03-Dec-2019 Instruction Type:Provider Instructions for Treatment How to access health informa tion online Indication:BMI 45.0-49.9, adult Start:14-Nov-2019 Instruction Type:Patient Education How to access health informa tion online - Detail Indication:BMI 45.0-49.9, adult Start:14-Nov-2019 Instruction Type:Patient Education Patient Instructions Indication:BMI 45.0-49.9, adult Start:14-Nov-2019 Instruction Type:Provider Instructions for Treatment How to access health informa tion online Indication:Non-smoker Start:01-Nov-2019 Instruction Type:Patient Education How to access health informa tion online - Detail Indication:Non-smoker Start:01-Nov-2019 Instruction Type:Patient Education Patient Instructions Indication:Non-smoker Start:01-Nov-2019 Instruction Type:Provider Instructions for Treatment How to access health informa tion online Indication:Nonsmoker Start:15-Oct-2019 Instruction Type:Patient Education How to access health informa tion online - Detail Indication:Nonsmoker Start:15-Oct-2019 Instruction Type:Patient Education Patient Instructions Indication:Nonsmoker Start:15-Oct-2019 Instruction Type:Provider Instructions for Treatment How to access health informa tion online - Detail Indication:BMI 50.0-59.9, adult Start:02-Apr-2019 Instruction Type:Patient Education How to access health informa tion online Indication:BMI 50.0-59.9, adult Start:02-Apr-2019 Instruction Type:Patient Education Patient Instructions Indication:BMI 50.0-59.9, adult Start:02-Apr-2019 Instruction Type:Provider Instructions for Treatment How to access health informa tion online Indication:BMI 50.0-59.9, adult Start:15-Feb-2019 Instruction Type:Patient Education How to access health informa tion online - Detail Indication:BMI 50.0-59.9, adult Start:15-Feb-2019 Instruction Type:Patient Education Patient Instructions Indication:BMI 50.0-59.9, adult Start:15-Feb-2019 Instruction Type:Provider Instructions for Treatment How to access health informa tion online Indication:Nonsmoker Start:09-Feb-2019 Instruction Type:Patient Education How to access health informa tion online - Detail Indication:Nonsmoker Start:09-Feb-2019 Instruction Type:Patient Education Patient Instructions Indication:Nonsmoker Start:09-Feb-2019 Instruction Type:Provider Instructions for Treatment How to access health informa tion online Indication:BMI 50.0-59.9, adult Start:22-Jan-2019 Instruction Type:Patient Education How to access health informa tion online - Detail Indication:BMI 50.0-59.9, adult Start:22-Jan-2019 Instruction Type:Patient Education Patient Instructions Indication:BMI 50.0-59.9, adult Start:22-Jan-2019 Instruction Type:Provider Instructions for Treatment How to access health informa tion online Indication:Nonsmoker Start:05-Oct-2018 Instruction Type:Patient Education How to access health informa tion online - Detail Indication:Nonsmoker Start:05-Oct-2018 Instruction Type:Patient Education Patient Instructions Indication:Nonsmoker Start:05-Oct-2018 Instruction Type:Provider Instructions for Treatment How to access health informa tion online Indication:BMI 50.0-59.9, adult Start:13-Jan-2018 Instruction Type:Patient Education How to access health informa tion online - Detail Indication:BMI 50.0-59.9, adult Start:13-Jan-2018 Instruction Type:Patient Education Patient Instructions Indication:BMI 50.0-59.9, adult Start:13-Jan-2018 Instruction Type:Provider Instructions for Treatment How to access health informa tion online Indication:Nonsmoker Start:06-Jan-2018 Instruction Type:Patient Education How to access health informa tion online - Detail Indication:Nonsmoker Start:06-Jan-2018 Instruction Type:Patient Education Patient Instructions Indication:Nonsmoker Start:06-Jan-2018 Instruction Type:Provider Instructions for Treatment [facility]; [facility] Work Phone: Instructions* Name Dates Details How to Access Health Informa tion Online using Patient Portal and [employer] Indication:Obesity, morbid (more than 100 lbs over ideal weight or BMI > 40) Start:16-Feb-2023 Instruction Type:Patient Education Patient Instructions Indication:Obesity, morbid (more than 100 lbs over ideal weight or BMI > 40) Start:16-Feb-2023 Instruction Type:Provider Instructions for Treatment Patient Instructions Indication:Non-smoker Start:29-Oct-2022 Instruction Type:Provider Instructions for Treatment How to Access Health Informa tion Online using Patient Portal and [employer] Indication:Non-smoker Start:29-Oct-2022 Instruction Type:Patient Education Patient Instructions Indication:Non-smoker Start:13-Oct-2022 Instruction Type:Provider Instructions for Treatment How to Access Health Informa tion Online using Patient Portal and [employer] Indication:Non-smoker Start:13-Oct-2022 Instruction Type:Patient Education Patient Instructions Indication:Non-smoker Start:21-Jan-2022 Instruction Type:Provider Instructions for Treatment How to Access Health Informa tion Online using Patient Portal and [employer] Indication:Non-smoker Start:21-Jan-2022 Instruction Type:Patient Education Patient Instructions Indication:Non-smoker Start:09-Nov-2021 Instruction Type:Provider Instructions for Treatment How to Access Health Informa tion Online using Patient Portal and [employer] Indication:Non-smoker Start:09-Nov-2021 Instruction Type:Patient Education Patient Instructions Indication:Non-smoker Start:21-Aug-2021 Instruction Type:Provider Instructions for Treatment How to Access Health Informa tion Online using Patient Portal and [employer] Indication:Non-smoker Start:21-Aug-2021 Instruction Type:Patient Education Patient Instructions Indication:BMI 45.0-49.9, adult Start:29-Jul-2021 Instruction Type:Provider Instructions for Treatment How to Access Health Informa tion Online using Patient Portal and [employer] Indication:BMI 45.0-49.9, adult Start:29-Jul-2021 Instruction Type:Patient Education Patient Instructions Indication:Hypothyroid Start:19-Jul-2021 Instruction Type:Provider Instructions for Treatment Patient Instructions Indication:Non-smoker Start:13-Jul-2021 Instruction Type:Provider Instructions for Treatment How to Access Health Informa tion Online using Patient Portal and [employer] Indication:Non-smoker Start:13-Jul-2021 Instruction Type:Patient Education Patient Instructions Indication:BMI 45.0-49.9, adult Start:25-May-2021 Instruction Type:Provider Instructions for Treatment How to Access Health Informa tion Online using Patient Portal and [employer] Indication:BMI 45.0-49.9, adult Start:25-May-2021 Instruction Type:Patient Education Patient Instructions Indication:Obesity, morbid (more than 100 lbs over ideal weight or BMI > 40) Start:18-Mar-2021 Instruction Type:Provider Instructions for Treatment How to Access Health Informa tion Online using Patient Portal and [employer] Indication:Obesity, morbid (more than 100 lbs over ideal weight or BMI > 40) Start:18-Mar-2021 Instruction Type:Patient Education Patient Instructions Indication:Non-smoker Start:25-Feb-2021 Instruction Type:Provider Instructions for Treatment How to Access Health Informa tion Online using Patient Portal and [employer] Indication:Non-smoker Start:25-Feb-2021 Instruction Type:Patient Education obesity counseling Indication:LUIZA (obstructive sleep apnea) Start:12-Dec-2020 Instruction Type:Provider Instructions for Treatment Patient Instructions Indication:BMI 50.0-59.9, adult Start:12-Dec-2020 Instruction Type:Provider Instructions for Treatment How to Access Health Informa tion Online using Patient Portal and [employer] Indication:BMI 50.0-59.9, adult Start:12-Dec-2020 Instruction Type:Patient Education Patient Instructions Indication:Non-smoker Start:04-Sep-2020 Instruction Type:Provider Instructions for Treatment How to Access Health Informa tion Online using Patient Portal and [employer] Indication:Non-smoker Start:04-Sep-2020 Instruction Type:Patient Education How to access health informa tion online Indication:Non-smoker Start:05-May-2020 Instruction Type:Patient Education How to access health informa tion online - Detail Indication:Non-smoker Start:05-May-2020 Instruction Type:Patient Education Patient Instructions Indication:Non-smoker Start:05-May-2020 Instruction Type:Provider Instructions for Treatment How to access health informa tion online Indication:Non-smoker Start:22-Apr-2020 Instruction Type:Patient Education How to access health informa tion online - Detail Indication:Non-smoker Start:22-Apr-2020 Instruction Type:Patient Education Patient Instructions Indication:Non-smoker Start:22-Apr-2020 Instruction Type:Provider Instructions for Treatment How to access health informa tion online Indication:Urinary frequency Start:27-Feb-2020 Instruction Type:Patient Education How to access health informa tion online - Detail Indication:Urinary frequency Start:27-Feb-2020 Instruction Type:Patient Education Patient Instructions Indication:Urinary frequency Start:27-Feb-2020 Instruction Type:Provider Instructions for Treatment How to access health informa tion online Indication:Non-smoker Start:15-Feb-2020 Instruction Type:Patient Education How to access health informa tion online - Detail Indication:Non-smoker Start:15-Feb-2020 Instruction Type:Patient Education Patient Instructions Indication:Non-smoker Start:15-Feb-2020 Instruction Type:Provider Instructions for Treatment obesity counseling Indication:Hypertension Start:03-Dec-2019 Instruction Type:Provider Instructions for Treatment How to access health informa tion online Indication:BMI 45.0-49.9, adult Start:14-Nov-2019 Instruction Type:Patient Education How to access health informa tion online - Detail Indication:BMI 45.0-49.9, adult Start:14-Nov-2019 Instruction Type:Patient Education Patient Instructions Indication:BMI 45.0-49.9, adult Start:14-Nov-2019 Instruction Type:Provider Instructions for Treatment How to access health informa tion online Indication:Non-smoker Start:01-Nov-2019 Instruction Type:Patient Education How to access health informa tion online - Detail Indication:Non-smoker Start:01-Nov-2019 Instruction Type:Patient Education Patient Instructions Indication:Non-smoker Start:01-Nov-2019 Instruction Type:Provider Instructions for Treatment How to access health informa tion online Indication:Nonsmoker Start:15-Oct-2019 Instruction Type:Patient Education How to access health informa tion online - Detail Indication:Nonsmoker Start:15-Oct-2019 Instruction Type:Patient Education Patient Instructions Indication:Nonsmoker Start:15-Oct-2019 Instruction Type:Provider Instructions for Treatment How to access health informa tion online - Detail Indication:BMI 50.0-59.9, adult Start:02-Apr-2019 Instruction Type:Patient Education How to access health informa tion online Indication:BMI 50.0-59.9, adult Start:02-Apr-2019 Instruction Type:Patient Education Patient Instructions Indication:BMI 50.0-59.9, adult Start:02-Apr-2019 Instruction Type:Provider Instructions for Treatment How to access health informa tion online Indication:BMI 50.0-59.9, adult Start:15-Feb-2019 Instruction Type:Patient Education How to access health informa tion online - Detail Indication:BMI 50.0-59.9, adult Start:15-Feb-2019 Instruction Type:Patient Education Patient Instructions Indication:BMI 50.0-59.9, adult Start:15-Feb-2019 Instruction Type:Provider Instructions for Treatment How to access health informa tion online Indication:Nonsmoker Start:09-Feb-2019 Instruction Type:Patient Education How to access health informa tion online - Detail Indication:Nonsmoker Start:09-Feb-2019 Instruction Type:Patient Education Patient Instructions Indication:Nonsmoker Start:09-Feb-2019 Instruction Type:Provider Instructions for Treatment How to access health informa tion online Indication:BMI 50.0-59.9, adult Start:22-Jan-2019 Instruction Type:Patient Education How to access health informa tion online - Detail Indication:BMI 50.0-59.9, adult Start:22-Jan-2019 Instruction Type:Patient Education Patient Instructions Indication:BMI 50.0-59.9, adult Start:22-Jan-2019 Instruction Type:Provider Instructions for Treatment How to access health informa tion online Indication:Nonsmoker Start:05-Oct-2018 Instruction Type:Patient Education How to access health informa tion online - Detail Indication:Nonsmoker Start:05-Oct-2018 Instruction Type:Patient Education Patient Instructions Indication:Nonsmoker Start:05-Oct-2018 Instruction Type:Provider Instructions for Treatment How to access health informa tion online Indication:BMI 50.0-59.9, adult Start:13-Jan-2018 Instruction Type:Patient Education How to access health informa tion online - Detail Indication:BMI 50.0-59.9, adult Start:13-Jan-2018 Instruction Type:Patient Education Patient Instructions Indication:BMI 50.0-59.9, adult Start:13-Jan-2018 Instruction Type:Provider Instructions for Treatment How to access health informa tion online Indication:Nonsmoker Start:06-Jan-2018 Instruction Type:Patient Education How to access health informa tion online - Detail Indication:Nonsmoker Start:06-Jan-2018 Instruction Type:Patient Education Patient Instructions Indication:Nonsmoker Start:06-Jan-2018 Instruction Type:Provider Instructions for Treatment [facility]; [facility] Work Phone: Family History No Family History Records FoundUnknown Family Member Name Dates Details Father Comments:heart problems, ruben betic Status:Active Maternal Grandmother Comments:cancer Status:Active Mother Comments:stroke, thyroid pro blems Status:Active Unknown Family Member Name Dates Details Father Comments:heart problems, ruben betic Status:Active Maternal Grandmother Comments:cancer Status:Active Mother Comments:stroke, thyroid pro blems Status:Active Unknown Family Member Name Dates Details Father Comments:heart problems, ruben betic Status:Active Maternal Grandmother Comments:cancer Status:Active Mother Comments:stroke, thyroid pro blems Status:Active Unknown Family Member Name Dates Details Father Comments:heart problems, rub[place] bet[place] Status:Active Maternal Grandmother Comments:cancer Status:Active Mother Comments:stroke, thyroid pro blems Status:Active Unknown Family Member Name Dates Details Father Comments:heart problems, [place] bet[place] Status:Active Maternal Grandmother Comments:cancer Status:Active Mother Comments:stroke, thyroid pro blems Status:Active Unknown Family Member Name Dates Details Father Comments:heart problems, [place] bet[place] Status:Active Maternal Grandmother Comments:cancer Status:Active Mother Comments:stroke, thyroid pro blems Status:Active Unknown Family Member Name Dates Details Father Comments:heart problems, [place] Status:Active Maternal Grandmother Comments:cancer Status:Active Mother Comments:stroke, thyroid pro blems Status:Active Unknown Family Member Name Dates Details Father Comments:heart problems, [place] bet[place] Status:Active Maternal Grandmother Comments:cancer Status:Active Mother Comments:stroke, thyroid pro blems Status:Active Unknown Family Member Name Dates Details Father Comments:heart problems, [place] Status:Active Maternal Grandmother Comments:cancer Status:Active Mother Comments:stroke, thyroid pro blems Status:Active Unknown Family Member Name Dates Details Father Comments:heart problems, [place] Status:Active Maternal Grandmother Comments:cancer Status:Active Mother Comments:stroke, thyroid pro blems Status:Active Unknown Family Member Name Dates Details Father Comments:heart problems, [place] Status:Active Maternal Grandmother Comments:cancer Status:Active Mother Comments:stroke, thyroid pro blems Status:Active Unknown Family Member Name Dates Details Father Comments:heart problems, [place] Status:Active Maternal Grandmother Comments:cancer Status:Active Mother Comments:stroke, thyroid pro blems Status:Active Unknown Family Member Name Dates Details Father Comments:heart problems, [place] Status:Active Maternal Grandmother Comments:cancer Status:Active Mother Comments:stroke, thyroid pro blems Status:Active Unknown Family Member Name Dates Details Father Comments:heart problems, [place] Status:Active Maternal Grandmother Comments:cancer Status:Active Mother Comments:stroke, thyroid pro blems Status:Active Unknown Family Member Name Dates Details Father Comments:heart problems, [place] Status:Active Maternal Grandmother Comments:cancer Status:Active Mother Comments:stroke, thyroid pro blems Status:Active Unknown Family Member Name Dates Details Father Comments:heart problems, [place] bet[place] Status:Active Maternal Grandmother Comments:cancer Status:Active Mother Comments:stroke, thyroid pro blems Status:Active Unknown Family Member Name Dates Details Father Comments:heart problems, [place] bet[place] Status:Active Maternal Grandmother Comments:cancer Status:Active Mother Comments:stroke, thyroid pro blems Status:Active Unknown Family Member Name Dates Details Father Comments:heart problems, [place] bet[place] Status:Active Maternal Grandmother Comments:cancer Status:Active Mother Comments:stroke, thyroid pro blems Status:Active Unknown Family Member Name Dates Details Father Comments:heart problems, [place] Status:Active Maternal Grandmother Comments:cancer Status:Active Mother Comments:stroke, thyroid pro blems Status:Active Unknown Family Member Name Dates Details Father Comments:heart problems, [place] Status:Active Maternal Grandmother Comments:cancer Status:Active Mother Comments:stroke, thyroid pro blems Status:Active Unknown Family Member Name Dates Details Father Comments:heart problems, [place] Status:Active Maternal Grandmother Comments:cancer Status:Active Mother Comments:stroke, thyroid pro blems Status:Active Unknown Family Member Name Dates Details Father Comments:heart problems, [place] Status:Active Maternal Grandmother Comments:cancer Status:Active Mother Comments:stroke, thyroid pro blems Status:Active Unknown Family Member Name Dates Details Father Comments:heart problems, [place] Status:Active Maternal Grandmother Comments:cancer Status:Active Mother Comments:stroke, thyroid pro blems Status:Active Unknown Family Member Name Dates Details Father Comments:heart problems, [place] Status:Active Maternal Grandmother Comments:cancer Status:Active Mother Comments:stroke, thyroid pro blems Status:Active Unknown Family Member Name Dates Details Father Comments:heart problems, [place] Status:Active Maternal Grandmother Comments:cancer Status:Active Mother Comments:stroke, thyroid pro blems Status:Active Unknown Family Member Name Dates Details Father Comments:heart problems, [place] Status:Active Maternal Grandmother Comments:cancer Status:Active Mother Comments:stroke, thyroid pro blems Status:Active Unknown Family Member Name Dates Details Father Comments:heart problems, [place] Status:Active Maternal Grandmother Comments:cancer Status:Active Mother Comments:stroke, thyroid pro blems Status:Active Unknown Family Member Name Dates Details Father Comments:heart problems, [place] Status:Active Maternal Grandmother Comments:cancer Status:Active Mother Comments:stroke, thyroid pro blems Status:Active Unknown Family Member Name Dates Details Father Comments:heart problems, [place] bet[place] Status:Active Maternal Grandmother Comments:cancer Status:Active Mother Comments:stroke, thyroid pro blems Status:Active Unknown Family Member Name Dates Details Father Comments:heart problems, [place] Status:Active Maternal Grandmother Comments:cancer Status:Active Mother Comments:stroke, thyroid pro blems Status:Active Unknown Family Member Name Dates Details Father Comments:heart problems, [place] Status:Active Maternal Grandmother Comments:cancer Status:Active Mother Comments:stroke, thyroid pro blems Status:Active Unknown Family Member Name Dates Details Father Comments:heart problems, [place] Status:Active Maternal Grandmother Comments:cancer Status:Active Mother Comments:stroke, thyroid pro blems Status:Active Unknown Family Member Name Dates Details Father Comments:heart problems, [place] Status:Active Maternal Grandmother Comments:cancer Status:Active Mother Comments:stroke, thyroid pro blems Status:Active Unknown Family Member Name Dates Details Father Comments:heart problems, [place] Status:Active Maternal Grandmother Comments:cancer Status:Active Mother Comments:stroke, thyroid pro blems Status:Active Unknown Family Member Name Dates Details Father Comments:heart problems, [place] Status:Active Maternal Grandmother Comments:cancer Status:Active Mother Comments:stroke, thyroid pro blems Status:Active Unknown Family Member Name Dates Details Father Comments:heart problems, [place] Status:Active Maternal Grandmother Comments:cancer Status:Active Mother Comments:stroke, thyroid pro blems Status:Active Unknown Family Member Name Dates Details Father Comments:heart problems, [place] Status:Active Maternal Grandmother Comments:cancer Status:Active Mother Comments:stroke, thyroid pro blems Status:Active Unknown Family Member Name Dates Details Father Comments:heart problems, [place] Status:Active Maternal Grandmother Comments:cancer Status:Active Mother Comments:stroke, thyroid pro blems Status:Active Unknown Family Member Name Dates Details Father Comments:heart problems, [place] Status:Active Maternal Grandmother Comments:cancer Status:Active Mother Comments:stroke, thyroid pro blems Status:Active Unknown Family Member Name Dates Details Father Comments:heart problems, [place] Status:Active Maternal Grandmother Comments:cancer Status:Active Mother Comments:stroke, thyroid pro blems Status:Active Unknown Family Member Name Dates Details Father Comments:heart problems, [place] Status:Active Maternal Grandmother Comments:cancer Status:Active Mother Comments:stroke, thyroid pro blems Status:Active Unknown Family Member Name Dates Details Father Comments:heart problems, [place] Status:Active Maternal Grandmother Comments:cancer Status:Active Mother Comments:stroke, thyroid pro blems Status:Active Unknown Family Member Name Dates Details Father Comments:heart problems, [place] Status:Active Maternal Grandmother Comments:cancer Status:Active Mother Comments:stroke, thyroid pro blems Status:Active Unknown Family Member Name Dates Details Father Comments:heart problems, [place] Status:Active Maternal Grandmother Comments:cancer Status:Active Mother Comments:stroke, thyroid pro blems Status:Active Unknown Family Member Name Dates Details Father Comments:heart problems, [place] Status:Active Maternal Grandmother Comments:cancer Status:Active Mother Comments:stroke, thyroid pro blems Status:Active Unknown Family Member Name Dates Details Father Comments:heart problems, [place] Status:Active Maternal Grandmother Comments:cancer Status:Active Mother Comments:stroke, thyroid pro blems Status:Active Unknown Family Member Name Dates Details Father Comments:heart problems, [place] Status:Active Maternal Grandmother Comments:cancer Status:Active Mother Comments:stroke, thyroid pro blems Status:Active Unknown Family Member Name Dates Details Father Comments:heart problems, [place] Status:Active Maternal Grandmother Comments:cancer Status:Active Mother Comments:stroke, thyroid pro blems Status:Active Unknown Family Member Name Dates Details Father Comments:heart problems, [place] Status:Active Maternal Grandmother Comments:cancer Status:Active Mother Comments:stroke, thyroid pro blems Status:Active Unknown Family Member Name Dates Details Father Comments:heart problems, [place] Status:Active Maternal Grandmother Comments:cancer Status:Active Mother Comments:stroke, thyroid pro blems Status:Active Unknown Family Member Name Dates Details Father Comments:heart problems, [place] Status:Active Maternal Grandmother Comments:cancer Status:Active Mother Comments:stroke, thyroid pro blems Status:Active Unknown Family Member Name Dates Details Father Comments:heart problems, [place] Status:Active Maternal Grandmother Comments:cancer Status:Active Mother Comments:stroke, thyroid pro blems Status:Active Unknown Family Member Name Dates Details Father Comments:heart problems, [place] Status:Active Maternal Grandmother Comments:cancer Status:Active Mother Comments:stroke, thyroid pro blems Status:Active Unknown Family Member Name Dates Details Father Comments:heart problems, [place] Status:Active Maternal Grandmother Comments:cancer Status:Active Mother Comments:stroke, thyroid pro blems Status:Active Unknown Family Member Name Dates Details Father Comments:heart problems, [place] Status:Active Maternal Grandmother Comments:cancer Status:Active Mother Comments:stroke, thyroid pro blems Status:Active Unknown Family Member Name Dates Details Father Comments:heart problems, [place] Status:Active Maternal Grandmother Comments:cancer Status:Active Mother Comments:stroke, thyroid pro blems Status:Active Unknown Family Member Name Dates Details Father Comments:heart problems, [place] Status:Active Maternal Grandmother Comments:cancer Status:Active Mother Comments:stroke, thyroid pro blems Status:Active Unknown Family Member Name Dates Details Father Comments:heart problems, [place] Status:Active Maternal Grandmother Comments:cancer Status:Active Mother Comments:stroke, thyroid pro blems Status:Active Unknown Family Member Name Dates Details Father Comments:heart problems, [place] Status:Active Maternal Grandmother Comments:cancer Status:Active Mother Comments:stroke, thyroid pro blems Status:Active Unknown Family Member Name Dates Details Father Comments:heart problems, [place] Status:Active Maternal Grandmother Comments:cancer Status:Active Mother Comments:stroke, thyroid pro blems Status:Active Unknown Family Member Name Dates Details Father Comments:heart problems, [place] Status:Active Maternal Grandmother Comments:cancer Status:Active Mother Comments:stroke, thyroid pro blems Status:Active Unknown Family Member Name Dates Details Father Comments:heart problems, [place] Status:Active Maternal Grandmother Comments:cancer Status:Active Mother Comments:stroke, thyroid pro blems Status:Active Instructions Name Dates Details How to access health informa tion online Indication:Nonsmoker Start:05-Oct-2018 Instruction Type:Patient Education How to access health informa tion online - Detail Indication:Nonsmoker Start:05-Oct-2018 Instruction Type:Patient Education Patient Instructions Indication:Nonsmoker Start:05-Oct-2018 Instruction Type:Provider Instructions for Treatment How to access health informa tion online Indication:BMI 50.0-59.9, adult Start:13-Jan-2018 Instruction Type:Patient Education How to access health informa tion online - Detail Indication:BMI 50.0-59.9, adult Start:13-Jan-2018 Instruction Type:Patient Education Patient Instructions Indication:BMI 50.0-59.9, adult Start:13-Jan-2018 Instruction Type:Provider Instructions for Treatment How to access health informa tion online Indication:Nonsmoker Start:06-Jan-2018 Instruction Type:Patient Education How to access health informa tion online - Detail Indication:Nonsmoker Start:06-Jan-2018 Instruction Type:Patient Education Patient Instructions Indication:Nonsmoker Start:06-Jan-2018 Instruction Type:Provider Instructions for Treatment Name Dates Details How to access health informa tion online Indication:BMI 50.0-59.9, adult Start:22-Jan-2019 Instruction Type:Patient Education How to access health informa tion online - Detail Indication:BMI 50.0-59.9, adult Start:22-Jan-2019 Instruction Type:Patient Education Patient Instructions Indication:BMI 50.0-59.9, adult Start:22-Jan-2019 Instruction Type:Provider Instructions for Treatment How to access health informa tion online Indication:Nonsmoker Start:05-Oct-2018 Instruction Type:Patient Education How to access health informa tion online - Detail Indication:Nonsmoker Start:05-Oct-2018 Instruction Type:Patient Education Patient Instructions Indication:Nonsmoker Start:05-Oct-2018 Instruction Type:Provider Instructions for Treatment How to access health informa tion online Indication:BMI 50.0-59.9, adult Start:13-Jan-2018 Instruction Type:Patient Education How to access health informa tion online - Detail Indication:BMI 50.0-59.9, adult Start:13-Jan-2018 Instruction Type:Patient Education Patient Instructions Indication:BMI 50.0-59.9, adult Start:13-Jan-2018 Instruction Type:Provider Instructions for Treatment How to access health informa tion online Indication:Nonsmoker Start:06-Jan-2018 Instruction Type:Patient Education How to access health informa tion online - Detail Indication:Nonsmoker Start:06-Jan-2018 Instruction Type:Patient Education Patient Instructions Indication:Nonsmoker Start:06-Jan-2018 Instruction Type:Provider Instructions for Treatment Name Dates Details How to access health informa tion online Indication:Nonsmoker Start:09-Feb-2019 Instruction Type:Patient Education How to access health informa tion online - Detail Indication:Nonsmoker Start:09-Feb-2019 Instruction Type:Patient Education Patient Instructions Indication:Nonsmoker Start:09-Feb-2019 Instruction Type:Provider Instructions for Treatment How to access health informa tion online Indication:BMI 50.0-59.9, adult Start:22-Jan-2019 Instruction Type:Patient Education How to access health informa tion online - Detail Indication:BMI 50.0-59.9, adult Start:22-Jan-2019 Instruction Type:Patient Education Patient Instructions Indication:BMI 50.0-59.9, adult Start:22-Jan-2019 Instruction Type:Provider Instructions for Treatment How to access health informa tion online Indication:Nonsmoker Start:05-Oct-2018 Instruction Type:Patient Education How to access health informa tion online - Detail Indication:Nonsmoker Start:05-Oct-2018 Instruction Type:Patient Education Patient Instructions Indication:Nonsmoker Start:05-Oct-2018 Instruction Type:Provider Instructions for Treatment How to access health informa tion online Indication:BMI 50.0-59.9, adult Start:13-Jan-2018 Instruction Type:Patient Education How to access health informa tion online - Detail Indication:BMI 50.0-59.9, adult Start:13-Jan-2018 Instruction Type:Patient Education Patient Instructions Indication:BMI 50.0-59.9, adult Start:13-Jan-2018 Instruction Type:Provider Instructions for Treatment How to access health informa tion online Indication:Nonsmoker Start:06-Jan-2018 Instruction Type:Patient Education How to access health informa tion online - Detail Indication:Nonsmoker Start:06-Jan-2018 Instruction Type:Patient Education Patient Instructions Indication:Nonsmoker Start:06-Jan-2018 Instruction Type:Provider Instructions for Treatment Name Dates Details How to access health informa tion online Indication:BMI 50.0-59.9, adult Start:15-Feb-2019 Instruction Type:Patient Education How to access health informa tion online - Detail Indication:BMI 50.0-59.9, adult Start:15-Feb-2019 Instruction Type:Patient Education Patient Instructions Indication:BMI 50.0-59.9, adult Start:15-Feb-2019 Instruction Type:Provider Instructions for Treatment How to access health informa tion online Indication:Nonsmoker Start:09-Feb-2019 Instruction Type:Patient Education How to access health informa tion online - Detail Indication:Nonsmoker Start:09-Feb-2019 Instruction Type:Patient Education Patient Instructions Indication:Nonsmoker Start:09-Feb-2019 Instruction Type:Provider Instructions for Treatment How to access health informa tion online Indication:BMI 50.0-59.9, adult Start:22-Jan-2019 Instruction Type:Patient Education How to access health informa tion online - Detail Indication:BMI 50.0-59.9, adult Start:22-Jan-2019 Instruction Type:Patient Education Patient Instructions Indication:BMI 50.0-59.9, adult Start:22-Jan-2019 Instruction Type:Provider Instructions for Treatment How to access health informa tion online Indication:Nonsmoker Start:05-Oct-2018 Instruction Type:Patient Education How to access health informa tion online - Detail Indication:Nonsmoker Start:05-Oct-2018 Instruction Type:Patient Education Patient Instructions Indication:Nonsmoker Start:05-Oct-2018 Instruction Type:Provider Instructions for Treatment How to access health informa tion online Indication:BMI 50.0-59.9, adult Start:13-Jan-2018 Instruction Type:Patient Education How to access health informa tion online - Detail Indication:BMI 50.0-59.9, adult Start:13-Jan-2018 Instruction Type:Patient Education Patient Instructions Indication:BMI 50.0-59.9, adult Start:13-Jan-2018 Instruction Type:Provider Instructions for Treatment How to access health informa tion online Indication:Nonsmoker Start:06-Jan-2018 Instruction Type:Patient Education How to access health informa tion online - Detail Indication:Nonsmoker Start:06-Jan-2018 Instruction Type:Patient Education Patient Instructions Indication:Nonsmoker Start:06-Jan-2018 Instruction Type:Provider Instructions for Treatment Name Dates Details How to access health informa tion online Indication:BMI 50.0-59.9, adult Start:15-Feb-2019 Instruction Type:Patient Education How to access health informa tion online - Detail Indication:BMI 50.0-59.9, adult Start:15-Feb-2019 Instruction Type:Patient Education Patient Instructions Indication:BMI 50.0-59.9, adult Start:15-Feb-2019 Instruction Type:Provider Instructions for Treatment How to access health informa tion online Indication:Nonsmoker Start:09-Feb-2019 Instruction Type:Patient Education How to access health informa tion online - Detail Indication:Nonsmoker Start:09-Feb-2019 Instruction Type:Patient Education Patient Instructions Indication:Nonsmoker Start:09-Feb-2019 Instruction Type:Provider Instructions for Treatment How to access health informa tion online Indication:BMI 50.0-59.9, adult Start:22-Jan-2019 Instruction Type:Patient Education How to access health informa tion online - Detail Indication:BMI 50.0-59.9, adult Start:22-Jan-2019 Instruction Type:Patient Education Patient Instructions Indication:BMI 50.0-59.9, adult Start:22-Jan-2019 Instruction Type:Provider Instructions for Treatment How to access health informa tion online Indication:Nonsmoker Start:05-Oct-2018 Instruction Type:Patient Education How to access health informa tion online - Detail Indication:Nonsmoker Start:05-Oct-2018 Instruction Type:Patient Education Patient Instructions Indication:Nonsmoker Start:05-Oct-2018 Instruction Type:Provider Instructions for Treatment How to access health informa tion online Indication:BMI 50.0-59.9, adult Start:13-Jan-2018 Instruction Type:Patient Education How to access health informa tion online - Detail Indication:BMI 50.0-59.9, adult Start:13-Jan-2018 Instruction Type:Patient Education Patient Instructions Indication:BMI 50.0-59.9, adult Start:13-Jan-2018 Instruction Type:Provider Instructions for Treatment How to access health informa tion online Indication:Nonsmoker Start:06-Jan-2018 Instruction Type:Patient Education How to access health informa tion online - Detail Indication:Nonsmoker Start:06-Jan-2018 Instruction Type:Patient Education Patient Instructions Indication:Nonsmoker Start:06-Jan-2018 Instruction Type:Provider Instructions for Treatment Name Dates Details How to access health informa tion online Indication:BMI 50.0-59.9, adult Start:15-Feb-2019 Instruction Type:Patient Education How to access health informa tion online - Detail Indication:BMI 50.0-59.9, adult Start:15-Feb-2019 Instruction Type:Patient Education Patient Instructions Indication:BMI 50.0-59.9, adult Start:15-Feb-2019 Instruction Type:Provider Instructions for Treatment How to access health informa tion online Indication:Nonsmoker Start:09-Feb-2019 Instruction Type:Patient Education How to access health informa tion online - Detail Indication:Nonsmoker Start:09-Feb-2019 Instruction Type:Patient Education Patient Instructions Indication:Nonsmoker Start:09-Feb-2019 Instruction Type:Provider Instructions for Treatment How to access health informa tion online Indication:BMI 50.0-59.9, adult Start:22-Jan-2019 Instruction Type:Patient Education How to access health informa tion online - Detail Indication:BMI 50.0-59.9, adult Start:22-Jan-2019 Instruction Type:Patient Education Patient Instructions Indication:BMI 50.0-59.9, adult Start:22-Jan-2019 Instruction Type:Provider Instructions for Treatment How to access health informa tion online Indication:Nonsmoker Start:05-Oct-2018 Instruction Type:Patient Education How to access health informa tion online - Detail Indication:Nonsmoker Start:05-Oct-2018 Instruction Type:Patient Education Patient Instructions Indication:Nonsmoker Start:05-Oct-2018 Instruction Type:Provider Instructions for Treatment How to access health informa tion online Indication:BMI 50.0-59.9, adult Start:13-Jan-2018 Instruction Type:Patient Education How to access health informa tion online - Detail Indication:BMI 50.0-59.9, adult Start:13-Jan-2018 Instruction Type:Patient Education Patient Instructions Indication:BMI 50.0-59.9, adult Start:13-Jan-2018 Instruction Type:Provider Instructions for Treatment How to access health informa tion online Indication:Nonsmoker Start:06-Jan-2018 Instruction Type:Patient Education How to access health informa tion online - Detail Indication:Nonsmoker Start:06-Jan-2018 Instruction Type:Patient Education Patient Instructions Indication:Nonsmoker Start:06-Jan-2018 Instruction Type:Provider Instructions for Treatment Name Dates Details How to access health informa tion online Indication:BMI 50.0-59.9, adult Start:15-Feb-2019 Instruction Type:Patient Education How to access health informa tion online - Detail Indication:BMI 50.0-59.9, adult Start:15-Feb-2019 Instruction Type:Patient Education Patient Instructions Indication:BMI 50.0-59.9, adult Start:15-Feb-2019 Instruction Type:Provider Instructions for Treatment How to access health informa tion online Indication:Nonsmoker Start:09-Feb-2019 Instruction Type:Patient Education How to access health informa tion online - Detail Indication:Nonsmoker Start:09-Feb-2019 Instruction Type:Patient Education Patient Instructions Indication:Nonsmoker Start:09-Feb-2019 Instruction Type:Provider Instructions for Treatment How to access health informa tion online Indication:BMI 50.0-59.9, adult Start:22-Jan-2019 Instruction Type:Patient Education How to access health informa tion online - Detail Indication:BMI 50.0-59.9, adult Start:22-Jan-2019 Instruction Type:Patient Education Patient Instructions Indication:BMI 50.0-59.9, adult Start:22-Jan-2019 Instruction Type:Provider Instructions for Treatment How to access health informa tion online Indication:Nonsmoker Start:05-Oct-2018 Instruction Type:Patient Education How to access health informa tion online - Detail Indication:Nonsmoker Start:05-Oct-2018 Instruction Type:Patient Education Patient Instructions Indication:Nonsmoker Start:05-Oct-2018 Instruction Type:Provider Instructions for Treatment How to access health informa tion online Indication:BMI 50.0-59.9, adult Start:13-Jan-2018 Instruction Type:Patient Education How to access health informa tion online - Detail Indication:BMI 50.0-59.9, adult Start:13-Jan-2018 Instruction Type:Patient Education Patient Instructions Indication:BMI 50.0-59.9, adult Start:13-Jan-2018 Instruction Type:Provider Instructions for Treatment How to access health informa tion online Indication:Nonsmoker Start:06-Jan-2018 Instruction Type:Patient Education How to access health informa tion online - Detail Indication:Nonsmoker Start:06-Jan-2018 Instruction Type:Patient Education Patient Instructions Indication:Nonsmoker Start:06-Jan-2018 Instruction Type:Provider Instructions for Treatment Name Dates Details How to access health informa tion online Indication:BMI 50.0-59.9, adult Start:15-Feb-2019 Instruction Type:Patient Education How to access health informa tion online - Detail Indication:BMI 50.0-59.9, adult Start:15-Feb-2019 Instruction Type:Patient Education Patient Instructions Indication:BMI 50.0-59.9, adult Start:15-Feb-2019 Instruction Type:Provider Instructions for Treatment How to access health informa tion online Indication:Nonsmoker Start:09-Feb-2019 Instruction Type:Patient Education How to access health informa tion online - Detail Indication:Nonsmoker Start:09-Feb-2019 Instruction Type:Patient Education Patient Instructions Indication:Nonsmoker Start:09-Feb-2019 Instruction Type:Provider Instructions for Treatment How to access health informa tion online Indication:BMI 50.0-59.9, adult Start:22-Jan-2019 Instruction Type:Patient Education How to access health informa tion online - Detail Indication:BMI 50.0-59.9, adult Start:22-Jan-2019 Instruction Type:Patient Education Patient Instructions Indication:BMI 50.0-59.9, adult Start:22-Jan-2019 Instruction Type:Provider Instructions for Treatment How to access health informa tion online Indication:Nonsmoker Start:05-Oct-2018 Instruction Type:Patient Education How to access health informa tion online - Detail Indication:Nonsmoker Start:05-Oct-2018 Instruction Type:Patient Education Patient Instructions Indication:Nonsmoker Start:05-Oct-2018 Instruction Type:Provider Instructions for Treatment How to access health informa tion online Indication:BMI 50.0-59.9, adult Start:13-Jan-2018 Instruction Type:Patient Education How to access health informa tion online - Detail Indication:BMI 50.0-59.9, adult Start:13-Jan-2018 Instruction Type:Patient Education Patient Instructions Indication:BMI 50.0-59.9, adult Start:13-Jan-2018 Instruction Type:Provider Instructions for Treatment How to access health informa tion online Indication:Nonsmoker Start:06-Jan-2018 Instruction Type:Patient Education How to access health informa tion online - Detail Indication:Nonsmoker Start:06-Jan-2018 Instruction Type:Patient Education Patient Instructions Indication:Nonsmoker Start:06-Jan-2018 Instruction Type:Provider Instructions for Treatment Name Dates Details How to access health informa tion online - Detail Indication:BMI 50.0-59.9, adult Start:02-Apr-2019 Instruction Type:Patient Education How to access health informa tion online Indication:BMI 50.0-59.9, adult Start:02-Apr-2019 Instruction Type:Patient Education Patient Instructions Indication:BMI 50.0-59.9, adult Start:02-Apr-2019 Instruction Type:Provider Instructions for Treatment How to access health informa tion online Indication:BMI 50.0-59.9, adult Start:15-Feb-2019 Instruction Type:Patient Education How to access health informa tion online - Detail Indication:BMI 50.0-59.9, adult Start:15-Feb-2019 Instruction Type:Patient Education Patient Instructions Indication:BMI 50.0-59.9, adult Start:15-Feb-2019 Instruction Type:Provider Instructions for Treatment How to access health informa tion online Indication:Nonsmoker Start:09-Feb-2019 Instruction Type:Patient Education How to access health informa tion online - Detail Indication:Nonsmoker Start:09-Feb-2019 Instruction Type:Patient Education Patient Instructions Indication:Nonsmoker Start:09-Feb-2019 Instruction Type:Provider Instructions for Treatment How to access health informa tion online Indication:BMI 50.0-59.9, adult Start:22-Jan-2019 Instruction Type:Patient Education How to access health informa tion online - Detail Indication:BMI 50.0-59.9, adult Start:22-Jan-2019 Instruction Type:Patient Education Patient Instructions Indication:BMI 50.0-59.9, adult Start:22-Jan-2019 Instruction Type:Provider Instructions for Treatment How to access health informa tion online Indication:Nonsmoker Start:05-Oct-2018 Instruction Type:Patient Education How to access health informa tion online - Detail Indication:Nonsmoker Start:05-Oct-2018 Instruction Type:Patient Education Patient Instructions Indication:Nonsmoker Start:05-Oct-2018 Instruction Type:Provider Instructions for Treatment How to access health informa tion online Indication:BMI 50.0-59.9, adult Start:13-Jan-2018 Instruction Type:Patient Education How to access health informa tion online - Detail Indication:BMI 50.0-59.9, adult Start:13-Jan-2018 Instruction Type:Patient Education Patient Instructions Indication:BMI 50.0-59.9, adult Start:13-Jan-2018 Instruction Type:Provider Instructions for Treatment How to access health informa tion online Indication:Nonsmoker Start:06-Jan-2018 Instruction Type:Patient Education How to access health informa tion online - Detail Indication:Nonsmoker Start:06-Jan-2018 Instruction Type:Patient Education Patient Instructions Indication:Nonsmoker Start:06-Jan-2018 Instruction Type:Provider Instructions for Treatment Name Dates Details obesity counseling Indication:Hypertension Start:03-Dec-2019 Instruction Type:Provider Instructions for Treatment How to access health informa tion online Indication:BMI 45.0-49.9, adult Start:14-Nov-2019 Instruction Type:Patient Education How to access health informa tion online - Detail Indication:BMI 45.0-49.9, adult Start:14-Nov-2019 Instruction Type:Patient Education Patient Instructions Indication:BMI 45.0-49.9, adult Start:14-Nov-2019 Instruction Type:Provider Instructions for Treatment How to access health informa tion online Indication:Non-smoker Start:01-Nov-2019 Instruction Type:Patient Education How to access health informa tion online - Detail Indication:Non-smoker Start:01-Nov-2019 Instruction Type:Patient Education Patient Instructions Indication:Non-smoker Start:01-Nov-2019 Instruction Type:Provider Instructions for Treatment How to access health informa tion online Indication:Nonsmoker Start:15-Oct-2019 Instruction Type:Patient Education How to access health informa tion online - Detail Indication:Nonsmoker Start:15-Oct-2019 Instruction Type:Patient Education Patient Instructions Indication:Nonsmoker Start:15-Oct-2019 Instruction Type:Provider Instructions for Treatment How to access health informa tion online - Detail Indication:BMI 50.0-59.9, adult Start:02-Apr-2019 Instruction Type:Patient Education How to access health informa tion online Indication:BMI 50.0-59.9, adult Start:02-Apr-2019 Instruction Type:Patient Education Patient Instructions Indication:BMI 50.0-59.9, adult Start:02-Apr-2019 Instruction Type:Provider Instructions for Treatment How to access health informa tion online Indication:BMI 50.0-59.9, adult Start:15-Feb-2019 Instruction Type:Patient Education How to access health informa tion online - Detail Indication:BMI 50.0-59.9, adult Start:15-Feb-2019 Instruction Type:Patient Education Patient Instructions Indication:BMI 50.0-59.9, adult Start:15-Feb-2019 Instruction Type:Provider Instructions for Treatment How to access health informa tion online Indication:Nonsmoker Start:09-Feb-2019 Instruction Type:Patient Education How to access health informa tion online - Detail Indication:Nonsmoker Start:09-Feb-2019 Instruction Type:Patient Education Patient Instructions Indication:Nonsmoker Start:09-Feb-2019 Instruction Type:Provider Instructions for Treatment How to access health informa tion online Indication:BMI 50.0-59.9, adult Start:22-Jan-2019 Instruction Type:Patient Education How to access health informa tion online - Detail Indication:BMI 50.0-59.9, adult Start:22-Jan-2019 Instruction Type:Patient Education Patient Instructions Indication:BMI 50.0-59.9, adult Start:22-Jan-2019 Instruction Type:Provider Instructions for Treatment How to access health informa tion online Indication:Nonsmoker Start:05-Oct-2018 Instruction Type:Patient Education How to access health informa tion online - Detail Indication:Nonsmoker Start:05-Oct-2018 Instruction Type:Patient Education Patient Instructions Indication:Nonsmoker Start:05-Oct-2018 Instruction Type:Provider Instructions for Treatment How to access health informa tion online Indication:BMI 50.0-59.9, adult Start:13-Jan-2018 Instruction Type:Patient Education How to access health informa tion online - Detail Indication:BMI 50.0-59.9, adult Start:13-Jan-2018 Instruction Type:Patient Education Patient Instructions Indication:BMI 50.0-59.9, adult Start:13-Jan-2018 Instruction Type:Provider Instructions for Treatment How to access health informa tion online Indication:Nonsmoker Start:06-Jan-2018 Instruction Type:Patient Education How to access health informa tion online - Detail Indication:Nonsmoker Start:06-Jan-2018 Instruction Type:Patient Education Patient Instructions Indication:Nonsmoker Start:06-Jan-2018 Instruction Type:Provider Instructions for Treatment Name Dates Details obesity counseling Indication:Hypertension Start:03-Dec-2019 Instruction Type:Provider Instructions for Treatment How to access health informa tion online Indication:BMI 45.0-49.9, adult Start:14-Nov-2019 Instruction Type:Patient Education How to access health informa tion online - Detail Indication:BMI 45.0-49.9, adult Start:14-Nov-2019 Instruction Type:Patient Education Patient Instructions Indication:BMI 45.0-49.9, adult Start:14-Nov-2019 Instruction Type:Provider Instructions for Treatment How to access health informa tion online Indication:Non-smoker Start:01-Nov-2019 Instruction Type:Patient Education How to access health informa tion online - Detail Indication:Non-smoker Start:01-Nov-2019 Instruction Type:Patient Education Patient Instructions Indication:Non-smoker Start:01-Nov-2019 Instruction Type:Provider Instructions for Treatment How to access health informa tion online Indication:Nonsmoker Start:15-Oct-2019 Instruction Type:Patient Education How to access health informa tion online - Detail Indication:Nonsmoker Start:15-Oct-2019 Instruction Type:Patient Education Patient Instructions Indication:Nonsmoker Start:15-Oct-2019 Instruction Type:Provider Instructions for Treatment How to access health informa tion online - Detail Indication:BMI 50.0-59.9, adult Start:02-Apr-2019 Instruction Type:Patient Education How to access health informa tion online Indication:BMI 50.0-59.9, adult Start:02-Apr-2019 Instruction Type:Patient Education Patient Instructions Indication:BMI 50.0-59.9, adult Start:02-Apr-2019 Instruction Type:Provider Instructions for Treatment How to access health informa tion online Indication:BMI 50.0-59.9, adult Start:15-Feb-2019 Instruction Type:Patient Education How to access health informa tion online - Detail Indication:BMI 50.0-59.9, adult Start:15-Feb-2019 Instruction Type:Patient Education Patient Instructions Indication:BMI 50.0-59.9, adult Start:15-Feb-2019 Instruction Type:Provider Instructions for Treatment How to access health informa tion online Indication:Nonsmoker Start:09-Feb-2019 Instruction Type:Patient Education How to access health informa tion online - Detail Indication:Nonsmoker Start:09-Feb-2019 Instruction Type:Patient Education Patient Instructions Indication:Nonsmoker Start:09-Feb-2019 Instruction Type:Provider Instructions for Treatment How to access health informa tion online Indication:BMI 50.0-59.9, adult Start:22-Jan-2019 Instruction Type:Patient Education How to access health informa tion online - Detail Indication:BMI 50.0-59.9, adult Start:22-Jan-2019 Instruction Type:Patient Education Patient Instructions Indication:BMI 50.0-59.9, adult Start:22-Jan-2019 Instruction Type:Provider Instructions for Treatment How to access health informa tion online Indication:Nonsmoker Start:05-Oct-2018 Instruction Type:Patient Education How to access health informa tion online - Detail Indication:Nonsmoker Start:05-Oct-2018 Instruction Type:Patient Education Patient Instructions Indication:Nonsmoker Start:05-Oct-2018 Instruction Type:Provider Instructions for Treatment How to access health informa tion online Indication:BMI 50.0-59.9, adult Start:13-Jan-2018 Instruction Type:Patient Education How to access health informa tion online - Detail Indication:BMI 50.0-59.9, adult Start:13-Jan-2018 Instruction Type:Patient Education Patient Instructions Indication:BMI 50.0-59.9, adult Start:13-Jan-2018 Instruction Type:Provider Instructions for Treatment How to access health informa tion online Indication:Nonsmoker Start:06-Jan-2018 Instruction Type:Patient Education How to access health informa tion online - Detail Indication:Nonsmoker Start:06-Jan-2018 Instruction Type:Patient Education Patient Instructions Indication:Nonsmoker Start:06-Jan-2018 Instruction Type:Provider Instructions for Treatment Name Dates Details obesity counseling Indication:Hypertension Start:03-Dec-2019 Instruction Type:Provider Instructions for Treatment How to access health informa tion online Indication:BMI 45.0-49.9, adult Start:14-Nov-2019 Instruction Type:Patient Education How to access health informa tion online - Detail Indication:BMI 45.0-49.9, adult Start:14-Nov-2019 Instruction Type:Patient Education Patient Instructions Indication:BMI 45.0-49.9, adult Start:14-Nov-2019 Instruction Type:Provider Instructions for Treatment How to access health informa tion online Indication:Non-smoker Start:01-Nov-2019 Instruction Type:Patient Education How to access health informa tion online - Detail Indication:Non-smoker Start:01-Nov-2019 Instruction Type:Patient Education Patient Instructions Indication:Non-smoker Start:01-Nov-2019 Instruction Type:Provider Instructions for Treatment How to access health informa tion online Indication:Nonsmoker Start:15-Oct-2019 Instruction Type:Patient Education How to access health informa tion online - Detail Indication:Nonsmoker Start:15-Oct-2019 Instruction Type:Patient Education Patient Instructions Indication:Nonsmoker Start:15-Oct-2019 Instruction Type:Provider Instructions for Treatment How to access health informa tion online - Detail Indication:BMI 50.0-59.9, adult Start:02-Apr-2019 Instruction Type:Patient Education How to access health informa tion online Indication:BMI 50.0-59.9, adult Start:02-Apr-2019 Instruction Type:Patient Education Patient Instructions Indication:BMI 50.0-59.9, adult Start:02-Apr-2019 Instruction Type:Provider Instructions for Treatment How to access health informa tion online Indication:BMI 50.0-59.9, adult Start:15-Feb-2019 Instruction Type:Patient Education How to access health informa tion online - Detail Indication:BMI 50.0-59.9, adult Start:15-Feb-2019 Instruction Type:Patient Education Patient Instructions Indication:BMI 50.0-59.9, adult Start:15-Feb-2019 Instruction Type:Provider Instructions for Treatment How to access health informa tion online Indication:Nonsmoker Start:09-Feb-2019 Instruction Type:Patient Education How to access health informa tion online - Detail Indication:Nonsmoker Start:09-Feb-2019 Instruction Type:Patient Education Patient Instructions Indication:Nonsmoker Start:09-Feb-2019 Instruction Type:Provider Instructions for Treatment How to access health informa tion online Indication:BMI 50.0-59.9, adult Start:22-Jan-2019 Instruction Type:Patient Education How to access health informa tion online - Detail Indication:BMI 50.0-59.9, adult Start:22-Jan-2019 Instruction Type:Patient Education Patient Instructions Indication:BMI 50.0-59.9, adult Start:22-Jan-2019 Instruction Type:Provider Instructions for Treatment How to access health informa tion online Indication:Nonsmoker Start:05-Oct-2018 Instruction Type:Patient Education How to access health informa tion online - Detail Indication:Nonsmoker Start:05-Oct-2018 Instruction Type:Patient Education Patient Instructions Indication:Nonsmoker Start:05-Oct-2018 Instruction Type:Provider Instructions for Treatment How to access health informa tion online Indication:BMI 50.0-59.9, adult Start:13-Jan-2018 Instruction Type:Patient Education How to access health informa tion online - Detail Indication:BMI 50.0-59.9, adult Start:13-Jan-2018 Instruction Type:Patient Education Patient Instructions Indication:BMI 50.0-59.9, adult Start:13-Jan-2018 Instruction Type:Provider Instructions for Treatment How to access health informa tion online Indication:Nonsmoker Start:06-Jan-2018 Instruction Type:Patient Education How to access health informa tion online - Detail Indication:Nonsmoker Start:06-Jan-2018 Instruction Type:Patient Education Patient Instructions Indication:Nonsmoker Start:06-Jan-2018 Instruction Type:Provider Instructions for Treatment Name Dates Details How to access health informa tion online Indication:Non-smoker Start:15-Feb-2020 Instruction Type:Patient Education How to access health informa tion online - Detail Indication:Non-smoker Start:15-Feb-2020 Instruction Type:Patient Education Patient Instructions Indication:Non-smoker Start:15-Feb-2020 Instruction Type:Provider Instructions for Treatment obesity counseling Indication:Hypertension Start:03-Dec-2019 Instruction Type:Provider Instructions for Treatment How to access health informa tion online Indication:BMI 45.0-49.9, adult Start:14-Nov-2019 Instruction Type:Patient Education How to access health informa tion online - Detail Indication:BMI 45.0-49.9, adult Start:14-Nov-2019 Instruction Type:Patient Education Patient Instructions Indication:BMI 45.0-49.9, adult Start:14-Nov-2019 Instruction Type:Provider Instructions for Treatment How to access health informa tion online Indication:Non-smoker Start:01-Nov-2019 Instruction Type:Patient Education How to access health informa tion online - Detail Indication:Non-smoker Start:01-Nov-2019 Instruction Type:Patient Education Patient Instructions Indication:Non-smoker Start:01-Nov-2019 Instruction Type:Provider Instructions for Treatment How to access health informa tion online Indication:Nonsmoker Start:15-Oct-2019 Instruction Type:Patient Education How to access health informa tion online - Detail Indication:Nonsmoker Start:15-Oct-2019 Instruction Type:Patient Education Patient Instructions Indication:Nonsmoker Start:15-Oct-2019 Instruction Type:Provider Instructions for Treatment How to access health informa tion online - Detail Indication:BMI 50.0-59.9, adult Start:02-Apr-2019 Instruction Type:Patient Education How to access health informa tion online Indication:BMI 50.0-59.9, adult Start:02-Apr-2019 Instruction Type:Patient Education Patient Instructions Indication:BMI 50.0-59.9, adult Start:02-Apr-2019 Instruction Type:Provider Instructions for Treatment How to access health informa tion online Indication:BMI 50.0-59.9, adult Start:15-Feb-2019 Instruction Type:Patient Education How to access health informa tion online - Detail Indication:BMI 50.0-59.9, adult Start:15-Feb-2019 Instruction Type:Patient Education Patient Instructions Indication:BMI 50.0-59.9, adult Start:15-Feb-2019 Instruction Type:Provider Instructions for Treatment How to access health informa tion online Indication:Nonsmoker Start:09-Feb-2019 Instruction Type:Patient Education How to access health informa tion online - Detail Indication:Nonsmoker Start:09-Feb-2019 Instruction Type:Patient Education Patient Instructions Indication:Nonsmoker Start:09-Feb-2019 Instruction Type:Provider Instructions for Treatment How to access health informa tion online Indication:BMI 50.0-59.9, adult Start:22-Jan-2019 Instruction Type:Patient Education How to access health informa tion online - Detail Indication:BMI 50.0-59.9, adult Start:22-Jan-2019 Instruction Type:Patient Education Patient Instructions Indication:BMI 50.0-59.9, adult Start:22-Jan-2019 Instruction Type:Provider Instructions for Treatment How to access health informa tion online Indication:Nonsmoker Start:05-Oct-2018 Instruction Type:Patient Education How to access health informa tion online - Detail Indication:Nonsmoker Start:05-Oct-2018 Instruction Type:Patient Education Patient Instructions Indication:Nonsmoker Start:05-Oct-2018 Instruction Type:Provider Instructions for Treatment How to access health informa tion online Indication:BMI 50.0-59.9, adult Start:13-Jan-2018 Instruction Type:Patient Education How to access health informa tion online - Detail Indication:BMI 50.0-59.9, adult Start:13-Jan-2018 Instruction Type:Patient Education Patient Instructions Indication:BMI 50.0-59.9, adult Start:13-Jan-2018 Instruction Type:Provider Instructions for Treatment How to access health informa tion online Indication:Nonsmoker Start:06-Jan-2018 Instruction Type:Patient Education How to access health informa tion online - Detail Indication:Nonsmoker Start:06-Jan-2018 Instruction Type:Patient Education Patient Instructions Indication:Nonsmoker Start:06-Jan-2018 Instruction Type:Provider Instructions for Treatment Name Dates Details How to access health informa tion online Indication:Urinary frequency Start:27-Feb-2020 Instruction Type:Patient Education How to access health informa tion online - Detail Indication:Urinary frequency Start:27-Feb-2020 Instruction Type:Patient Education Patient Instructions Indication:Urinary frequency Start:27-Feb-2020 Instruction Type:Provider Instructions for Treatment How to access health informa tion online Indication:Non-smoker Start:15-Feb-2020 Instruction Type:Patient Education How to access health informa tion online - Detail Indication:Non-smoker Start:15-Feb-2020 Instruction Type:Patient Education Patient Instructions Indication:Non-smoker Start:15-Feb-2020 Instruction Type:Provider Instructions for Treatment obesity counseling Indication:Hypertension Start:03-Dec-2019 Instruction Type:Provider Instructions for Treatment How to access health informa tion online Indication:BMI 45.0-49.9, adult Start:14-Nov-2019 Instruction Type:Patient Education How to access health informa tion online - Detail Indication:BMI 45.0-49.9, adult Start:14-Nov-2019 Instruction Type:Patient Education Patient Instructions Indication:BMI 45.0-49.9, adult Start:14-Nov-2019 Instruction Type:Provider Instructions for Treatment How to access health informa tion online Indication:Non-smoker Start:01-Nov-2019 Instruction Type:Patient Education How to access health informa tion online - Detail Indication:Non-smoker Start:01-Nov-2019 Instruction Type:Patient Education Patient Instructions Indication:Non-smoker Start:01-Nov-2019 Instruction Type:Provider Instructions for Treatment How to access health informa tion online Indication:Nonsmoker Start:15-Oct-2019 Instruction Type:Patient Education How to access health informa tion online - Detail Indication:Nonsmoker Start:15-Oct-2019 Instruction Type:Patient Education Patient Instructions Indication:Nonsmoker Start:15-Oct-2019 Instruction Type:Provider Instructions for Treatment How to access health informa tion online - Detail Indication:BMI 50.0-59.9, adult Start:02-Apr-2019 Instruction Type:Patient Education How to access health informa tion online Indication:BMI 50.0-59.9, adult Start:02-Apr-2019 Instruction Type:Patient Education Patient Instructions Indication:BMI 50.0-59.9, adult Start:02-Apr-2019 Instruction Type:Provider Instructions for Treatment How to access health informa tion online Indication:BMI 50.0-59.9, adult Start:15-Feb-2019 Instruction Type:Patient Education How to access health informa tion online - Detail Indication:BMI 50.0-59.9, adult Start:15-Feb-2019 Instruction Type:Patient Education Patient Instructions Indication:BMI 50.0-59.9, adult Start:15-Feb-2019 Instruction Type:Provider Instructions for Treatment How to access health informa tion online Indication:Nonsmoker Start:09-Feb-2019 Instruction Type:Patient Education How to access health informa tion online - Detail Indication:Nonsmoker Start:09-Feb-2019 Instruction Type:Patient Education Patient Instructions Indication:Nonsmoker Start:09-Feb-2019 Instruction Type:Provider Instructions for Treatment How to access health informa tion online Indication:BMI 50.0-59.9, adult Start:22-Jan-2019 Instruction Type:Patient Education How to access health informa tion online - Detail Indication:BMI 50.0-59.9, adult Start:22-Jan-2019 Instruction Type:Patient Education Patient Instructions Indication:BMI 50.0-59.9, adult Start:22-Jan-2019 Instruction Type:Provider Instructions for Treatment How to access health informa tion online Indication:Nonsmoker Start:05-Oct-2018 Instruction Type:Patient Education How to access health informa tion online - Detail Indication:Nonsmoker Start:05-Oct-2018 Instruction Type:Patient Education Patient Instructions Indication:Nonsmoker Start:05-Oct-2018 Instruction Type:Provider Instructions for Treatment How to access health informa tion online Indication:BMI 50.0-59.9, adult Start:13-Jan-2018 Instruction Type:Patient Education How to access health informa tion online - Detail Indication:BMI 50.0-59.9, adult Start:13-Jan-2018 Instruction Type:Patient Education Patient Instructions Indication:BMI 50.0-59.9, adult Start:13-Jan-2018 Instruction Type:Provider Instructions for Treatment How to access health informa tion online Indication:Nonsmoker Start:06-Jan-2018 Instruction Type:Patient Education How to access health informa tion online - Detail Indication:Nonsmoker Start:06-Jan-2018 Instruction Type:Patient Education Patient Instructions Indication:Nonsmoker Start:06-Jan-2018 Instruction Type:Provider Instructions for Treatment Name Dates Details How to access health informa tion online Indication:Urinary frequency Start:27-Feb-2020 Instruction Type:Patient Education How to access health informa tion online - Detail Indication:Urinary frequency Start:27-Feb-2020 Instruction Type:Patient Education Patient Instructions Indication:Urinary frequency Start:27-Feb-2020 Instruction Type:Provider Instructions for Treatment How to access health informa tion online Indication:Non-smoker Start:15-Feb-2020 Instruction Type:Patient Education How to access health informa tion online - Detail Indication:Non-smoker Start:15-Feb-2020 Instruction Type:Patient Education Patient Instructions Indication:Non-smoker Start:15-Feb-2020 Instruction Type:Provider Instructions for Treatment obesity counseling Indication:Hypertension Start:03-Dec-2019 Instruction Type:Provider Instructions for Treatment How to access health informa tion online Indication:BMI 45.0-49.9, adult Start:14-Nov-2019 Instruction Type:Patient Education How to access health informa tion online - Detail Indication:BMI 45.0-49.9, adult Start:14-Nov-2019 Instruction Type:Patient Education Patient Instructions Indication:BMI 45.0-49.9, adult Start:14-Nov-2019 Instruction Type:Provider Instructions for Treatment How to access health informa tion online Indication:Non-smoker Start:01-Nov-2019 Instruction Type:Patient Education How to access health informa tion online - Detail Indication:Non-smoker Start:01-Nov-2019 Instruction Type:Patient Education Patient Instructions Indication:Non-smoker Start:01-Nov-2019 Instruction Type:Provider Instructions for Treatment How to access health informa tion online Indication:Nonsmoker Start:15-Oct-2019 Instruction Type:Patient Education How to access health informa tion online - Detail Indication:Nonsmoker Start:15-Oct-2019 Instruction Type:Patient Education Patient Instructions Indication:Nonsmoker Start:15-Oct-2019 Instruction Type:Provider Instructions for Treatment How to access health informa tion online - Detail Indication:BMI 50.0-59.9, adult Start:02-Apr-2019 Instruction Type:Patient Education How to access health informa tion online Indication:BMI 50.0-59.9, adult Start:02-Apr-2019 Instruction Type:Patient Education Patient Instructions Indication:BMI 50.0-59.9, adult Start:02-Apr-2019 Instruction Type:Provider Instructions for Treatment How to access health informa tion online Indication:BMI 50.0-59.9, adult Start:15-Feb-2019 Instruction Type:Patient Education How to access health informa tion online - Detail Indication:BMI 50.0-59.9, adult Start:15-Feb-2019 Instruction Type:Patient Education Patient Instructions Indication:BMI 50.0-59.9, adult Start:15-Feb-2019 Instruction Type:Provider Instructions for Treatment How to access health informa tion online Indication:Nonsmoker Start:09-Feb-2019 Instruction Type:Patient Education How to access health informa tion online - Detail Indication:Nonsmoker Start:09-Feb-2019 Instruction Type:Patient Education Patient Instructions Indication:Nonsmoker Start:09-Feb-2019 Instruction Type:Provider Instructions for Treatment How to access health informa tion online Indication:BMI 50.0-59.9, adult Start:22-Jan-2019 Instruction Type:Patient Education How to access health informa tion online - Detail Indication:BMI 50.0-59.9, adult Start:22-Jan-2019 Instruction Type:Patient Education Patient Instructions Indication:BMI 50.0-59.9, adult Start:22-Jan-2019 Instruction Type:Provider Instructions for Treatment How to access health informa tion online Indication:Nonsmoker Start:05-Oct-2018 Instruction Type:Patient Education How to access health informa tion online - Detail Indication:Nonsmoker Start:05-Oct-2018 Instruction Type:Patient Education Patient Instructions Indication:Nonsmoker Start:05-Oct-2018 Instruction Type:Provider Instructions for Treatment How to access health informa tion online Indication:BMI 50.0-59.9, adult Start:13-Jan-2018 Instruction Type:Patient Education How to access health informa tion online - Detail Indication:BMI 50.0-59.9, adult Start:13-Jan-2018 Instruction Type:Patient Education Patient Instructions Indication:BMI 50.0-59.9, adult Start:13-Jan-2018 Instruction Type:Provider Instructions for Treatment How to access health informa tion online Indication:Nonsmoker Start:06-Jan-2018 Instruction Type:Patient Education How to access health informa tion online - Detail Indication:Nonsmoker Start:06-Jan-2018 Instruction Type:Patient Education Patient Instructions Indication:Nonsmoker Start:06-Jan-2018 Instruction Type:Provider Instructions for Treatment Name Dates Details How to access health informa tion online Indication:Urinary frequency Start:27-Feb-2020 Instruction Type:Patient Education How to access health informa tion online - Detail Indication:Urinary frequency Start:27-Feb-2020 Instruction Type:Patient Education Patient Instructions Indication:Urinary frequency Start:27-Feb-2020 Instruction Type:Provider Instructions for Treatment How to access health informa tion online Indication:Non-smoker Start:15-Feb-2020 Instruction Type:Patient Education How to access health informa tion online - Detail Indication:Non-smoker Start:15-Feb-2020 Instruction Type:Patient Education Patient Instructions Indication:Non-smoker Start:15-Feb-2020 Instruction Type:Provider Instructions for Treatment obesity counseling Indication:Hypertension Start:03-Dec-2019 Instruction Type:Provider Instructions for Treatment How to access health informa tion online Indication:BMI 45.0-49.9, adult Start:14-Nov-2019 Instruction Type:Patient Education How to access health informa tion online - Detail Indication:BMI 45.0-49.9, adult Start:14-Nov-2019 Instruction Type:Patient Education Patient Instructions Indication:BMI 45.0-49.9, adult Start:14-Nov-2019 Instruction Type:Provider Instructions for Treatment How to access health informa tion online Indication:Non-smoker Start:01-Nov-2019 Instruction Type:Patient Education How to access health informa tion online - Detail Indication:Non-smoker Start:01-Nov-2019 Instruction Type:Patient Education Patient Instructions Indication:Non-smoker Start:01-Nov-2019 Instruction Type:Provider Instructions for Treatment How to access health informa tion online Indication:Nonsmoker Start:15-Oct-2019 Instruction Type:Patient Education How to access health informa tion online - Detail Indication:Nonsmoker Start:15-Oct-2019 Instruction Type:Patient Education Patient Instructions Indication:Nonsmoker Start:15-Oct-2019 Instruction Type:Provider Instructions for Treatment How to access health informa tion online - Detail Indication:BMI 50.0-59.9, adult Start:02-Apr-2019 Instruction Type:Patient Education How to access health informa tion online Indication:BMI 50.0-59.9, adult Start:02-Apr-2019 Instruction Type:Patient Education Patient Instructions Indication:BMI 50.0-59.9, adult Start:02-Apr-2019 Instruction Type:Provider Instructions for Treatment How to access health informa tion online Indication:BMI 50.0-59.9, adult Start:15-Feb-2019 Instruction Type:Patient Education How to access health informa tion online - Detail Indication:BMI 50.0-59.9, adult Start:15-Feb-2019 Instruction Type:Patient Education Patient Instructions Indication:BMI 50.0-59.9, adult Start:15-Feb-2019 Instruction Type:Provider Instructions for Treatment How to access health informa tion online Indication:Nonsmoker Start:09-Feb-2019 Instruction Type:Patient Education How to access health informa tion online - Detail Indication:Nonsmoker Start:09-Feb-2019 Instruction Type:Patient Education Patient Instructions Indication:Nonsmoker Start:09-Feb-2019 Instruction Type:Provider Instructions for Treatment How to access health informa tion online Indication:BMI 50.0-59.9, adult Start:22-Jan-2019 Instruction Type:Patient Education How to access health informa tion online - Detail Indication:BMI 50.0-59.9, adult Start:22-Jan-2019 Instruction Type:Patient Education Patient Instructions Indication:BMI 50.0-59.9, adult Start:22-Jan-2019 Instruction Type:Provider Instructions for Treatment How to access health informa tion online Indication:Nonsmoker Start:05-Oct-2018 Instruction Type:Patient Education How to access health informa tion online - Detail Indication:Nonsmoker Start:05-Oct-2018 Instruction Type:Patient Education Patient Instructions Indication:Nonsmoker Start:05-Oct-2018 Instruction Type:Provider Instructions for Treatment How to access health informa tion online Indication:BMI 50.0-59.9, adult Start:13-Jan-2018 Instruction Type:Patient Education How to access health informa tion online - Detail Indication:BMI 50.0-59.9, adult Start:13-Jan-2018 Instruction Type:Patient Education Patient Instructions Indication:BMI 50.0-59.9, adult Start:13-Jan-2018 Instruction Type:Provider Instructions for Treatment How to access health informa tion online Indication:Nonsmoker Start:06-Jan-2018 Instruction Type:Patient Education How to access health informa tion online - Detail Indication:Nonsmoker Start:06-Jan-2018 Instruction Type:Patient Education Patient Instructions Indication:Nonsmoker Start:06-Jan-2018 Instruction Type:Provider Instructions for Treatment Name Dates Details How to access health informa tion online Indication:Non-smoker Start:22-Apr-2020 Instruction Type:Patient Education How to access health informa tion online - Detail Indication:Non-smoker Start:22-Apr-2020 Instruction Type:Patient Education Patient Instructions Indication:Non-smoker Start:22-Apr-2020 Instruction Type:Provider Instructions for Treatment How to access health informa tion online Indication:Urinary frequency Start:27-Feb-2020 Instruction Type:Patient Education How to access health informa tion online - Detail Indication:Urinary frequency Start:27-Feb-2020 Instruction Type:Patient Education Patient Instructions Indication:Urinary frequency Start:27-Feb-2020 Instruction Type:Provider Instructions for Treatment How to access health informa tion online Indication:Non-smoker Start:15-Feb-2020 Instruction Type:Patient Education How to access health informa tion online - Detail Indication:Non-smoker Start:15-Feb-2020 Instruction Type:Patient Education Patient Instructions Indication:Non-smoker Start:15-Feb-2020 Instruction Type:Provider Instructions for Treatment obesity counseling Indication:Hypertension Start:03-Dec-2019 Instruction Type:Provider Instructions for Treatment How to access health informa tion online Indication:BMI 45.0-49.9, adult Start:14-Nov-2019 Instruction Type:Patient Education How to access health informa tion online - Detail Indication:BMI 45.0-49.9, adult Start:14-Nov-2019 Instruction Type:Patient Education Patient Instructions Indication:BMI 45.0-49.9, adult Start:14-Nov-2019 Instruction Type:Provider Instructions for Treatment How to access health informa tion online Indication:Non-smoker Start:01-Nov-2019 Instruction Type:Patient Education How to access health informa tion online - Detail Indication:Non-smoker Start:01-Nov-2019 Instruction Type:Patient Education Patient Instructions Indication:Non-smoker Start:01-Nov-2019 Instruction Type:Provider Instructions for Treatment How to access health informa tion online Indication:Nonsmoker Start:15-Oct-2019 Instruction Type:Patient Education How to access health informa tion online - Detail Indication:Nonsmoker Start:15-Oct-2019 Instruction Type:Patient Education Patient Instructions Indication:Nonsmoker Start:15-Oct-2019 Instruction Type:Provider Instructions for Treatment How to access health informa tion online - Detail Indication:BMI 50.0-59.9, adult Start:02-Apr-2019 Instruction Type:Patient Education How to access health informa tion online Indication:BMI 50.0-59.9, adult Start:02-Apr-2019 Instruction Type:Patient Education Patient Instructions Indication:BMI 50.0-59.9, adult Start:02-Apr-2019 Instruction Type:Provider Instructions for Treatment How to access health informa tion online Indication:BMI 50.0-59.9, adult Start:15-Feb-2019 Instruction Type:Patient Education How to access health informa tion online - Detail Indication:BMI 50.0-59.9, adult Start:15-Feb-2019 Instruction Type:Patient Education Patient Instructions Indication:BMI 50.0-59.9, adult Start:15-Feb-2019 Instruction Type:Provider Instructions for Treatment How to access health informa tion online Indication:Nonsmoker Start:09-Feb-2019 Instruction Type:Patient Education How to access health informa tion online - Detail Indication:Nonsmoker Start:09-Feb-2019 Instruction Type:Patient Education Patient Instructions Indication:Nonsmoker Start:09-Feb-2019 Instruction Type:Provider Instructions for Treatment How to access health informa tion online Indication:BMI 50.0-59.9, adult Start:22-Jan-2019 Instruction Type:Patient Education How to access health informa tion online - Detail Indication:BMI 50.0-59.9, adult Start:22-Jan-2019 Instruction Type:Patient Education Patient Instructions Indication:BMI 50.0-59.9, adult Start:22-Jan-2019 Instruction Type:Provider Instructions for Treatment How to access health informa tion online Indication:Nonsmoker Start:05-Oct-2018 Instruction Type:Patient Education How to access health informa tion online - Detail Indication:Nonsmoker Start:05-Oct-2018 Instruction Type:Patient Education Patient Instructions Indication:Nonsmoker Start:05-Oct-2018 Instruction Type:Provider Instructions for Treatment How to access health informa tion online Indication:BMI 50.0-59.9, adult Start:13-Jan-2018 Instruction Type:Patient Education How to access health informa tion online - Detail Indication:BMI 50.0-59.9, adult Start:13-Jan-2018 Instruction Type:Patient Education Patient Instructions Indication:BMI 50.0-59.9, adult Start:13-Jan-2018 Instruction Type:Provider Instructions for Treatment How to access health informa tion online Indication:Nonsmoker Start:06-Jan-2018 Instruction Type:Patient Education How to access health informa tion online - Detail Indication:Nonsmoker Start:06-Jan-2018 Instruction Type:Patient Education Patient Instructions Indication:Nonsmoker Start:06-Jan-2018 Instruction Type:Provider Instructions for Treatment Name Dates Details How to access health informa tion online Indication:Non-smoker Start:22-Apr-2020 Instruction Type:Patient Education How to access health informa tion online - Detail Indication:Non-smoker Start:22-Apr-2020 Instruction Type:Patient Education Patient Instructions Indication:Non-smoker Start:22-Apr-2020 Instruction Type:Provider Instructions for Treatment How to access health informa tion online Indication:Urinary frequency Start:27-Feb-2020 Instruction Type:Patient Education How to access health informa tion online - Detail Indication:Urinary frequency Start:27-Feb-2020 Instruction Type:Patient Education Patient Instructions Indication:Urinary frequency Start:27-Feb-2020 Instruction Type:Provider Instructions for Treatment How to access health informa tion online Indication:Non-smoker Start:15-Feb-2020 Instruction Type:Patient Education How to access health informa tion online - Detail Indication:Non-smoker Start:15-Feb-2020 Instruction Type:Patient Education Patient Instructions Indication:Non-smoker Start:15-Feb-2020 Instruction Type:Provider Instructions for Treatment obesity counseling Indication:Hypertension Start:03-Dec-2019 Instruction Type:Provider Instructions for Treatment How to access health informa tion online Indication:BMI 45.0-49.9, adult Start:14-Nov-2019 Instruction Type:Patient Education How to access health informa tion online - Detail Indication:BMI 45.0-49.9, adult Start:14-Nov-2019 Instruction Type:Patient Education Patient Instructions Indication:BMI 45.0-49.9, adult Start:14-Nov-2019 Instruction Type:Provider Instructions for Treatment How to access health informa tion online Indication:Non-smoker Start:01-Nov-2019 Instruction Type:Patient Education How to access health informa tion online - Detail Indication:Non-smoker Start:01-Nov-2019 Instruction Type:Patient Education Patient Instructions Indication:Non-smoker Start:01-Nov-2019 Instruction Type:Provider Instructions for Treatment How to access health informa tion online Indication:Nonsmoker Start:15-Oct-2019 Instruction Type:Patient Education How to access health informa tion online - Detail Indication:Nonsmoker Start:15-Oct-2019 Instruction Type:Patient Education Patient Instructions Indication:Nonsmoker Start:15-Oct-2019 Instruction Type:Provider Instructions for Treatment How to access health informa tion online - Detail Indication:BMI 50.0-59.9, adult Start:02-Apr-2019 Instruction Type:Patient Education How to access health informa tion online Indication:BMI 50.0-59.9, adult Start:02-Apr-2019 Instruction Type:Patient Education Patient Instructions Indication:BMI 50.0-59.9, adult Start:02-Apr-2019 Instruction Type:Provider Instructions for Treatment How to access health informa tion online Indication:BMI 50.0-59.9, adult Start:15-Feb-2019 Instruction Type:Patient Education How to access health informa tion online - Detail Indication:BMI 50.0-59.9, adult Start:15-Feb-2019 Instruction Type:Patient Education Patient Instructions Indication:BMI 50.0-59.9, adult Start:15-Feb-2019 Instruction Type:Provider Instructions for Treatment How to access health informa tion online Indication:Nonsmoker Start:09-Feb-2019 Instruction Type:Patient Education How to access health informa tion online - Detail Indication:Nonsmoker Start:09-Feb-2019 Instruction Type:Patient Education Patient Instructions Indication:Nonsmoker Start:09-Feb-2019 Instruction Type:Provider Instructions for Treatment How to access health informa tion online Indication:BMI 50.0-59.9, adult Start:22-Jan-2019 Instruction Type:Patient Education How to access health informa tion online - Detail Indication:BMI 50.0-59.9, adult Start:22-Jan-2019 Instruction Type:Patient Education Patient Instructions Indication:BMI 50.0-59.9, adult Start:22-Jan-2019 Instruction Type:Provider Instructions for Treatment How to access health informa tion online Indication:Nonsmoker Start:05-Oct-2018 Instruction Type:Patient Education How to access health informa tion online - Detail Indication:Nonsmoker Start:05-Oct-2018 Instruction Type:Patient Education Patient Instructions Indication:Nonsmoker Start:05-Oct-2018 Instruction Type:Provider Instructions for Treatment How to access health informa tion online Indication:BMI 50.0-59.9, adult Start:13-Jan-2018 Instruction Type:Patient Education How to access health informa tion online - Detail Indication:BMI 50.0-59.9, adult Start:13-Jan-2018 Instruction Type:Patient Education Patient Instructions Indication:BMI 50.0-59.9, adult Start:13-Jan-2018 Instruction Type:Provider Instructions for Treatment How to access health informa tion online Indication:Nonsmoker Start:06-Jan-2018 Instruction Type:Patient Education How to access health informa tion online - Detail Indication:Nonsmoker Start:06-Jan-2018 Instruction Type:Patient Education Patient Instructions Indication:Nonsmoker Start:06-Jan-2018 Instruction Type:Provider Instructions for Treatment Name Dates Details How to access health informa tion online Indication:Non-smoker Start:05-May-2020 Instruction Type:Patient Education How to access health informa tion online - Detail Indication:Non-smoker Start:05-May-2020 Instruction Type:Patient Education Patient Instructions Indication:Non-smoker Start:05-May-2020 Instruction Type:Provider Instructions for Treatment How to access health informa tion online Indication:Non-smoker Start:22-Apr-2020 Instruction Type:Patient Education How to access health informa tion online - Detail Indication:Non-smoker Start:22-Apr-2020 Instruction Type:Patient Education Patient Instructions Indication:Non-smoker Start:22-Apr-2020 Instruction Type:Provider Instructions for Treatment How to access health informa tion online Indication:Urinary frequency Start:27-Feb-2020 Instruction Type:Patient Education How to access health informa tion online - Detail Indication:Urinary frequency Start:27-Feb-2020 Instruction Type:Patient Education Patient Instructions Indication:Urinary frequency Start:27-Feb-2020 Instruction Type:Provider Instructions for Treatment How to access health informa tion online Indication:Non-smoker Start:15-Feb-2020 Instruction Type:Patient Education How to access health informa tion online - Detail Indication:Non-smoker Start:15-Feb-2020 Instruction Type:Patient Education Patient Instructions Indication:Non-smoker Start:15-Feb-2020 Instruction Type:Provider Instructions for Treatment obesity counseling Indication:Hypertension Start:03-Dec-2019 Instruction Type:Provider Instructions for Treatment How to access health informa tion online Indication:BMI 45.0-49.9, adult Start:14-Nov-2019 Instruction Type:Patient Education How to access health informa tion online - Detail Indication:BMI 45.0-49.9, adult Start:14-Nov-2019 Instruction Type:Patient Education Patient Instructions Indication:BMI 45.0-49.9, adult Start:14-Nov-2019 Instruction Type:Provider Instructions for Treatment How to access health informa tion online Indication:Non-smoker Start:01-Nov-2019 Instruction Type:Patient Education How to access health informa tion online - Detail Indication:Non-smoker Start:01-Nov-2019 Instruction Type:Patient Education Patient Instructions Indication:Non-smoker Start:01-Nov-2019 Instruction Type:Provider Instructions for Treatment How to access health informa tion online Indication:Nonsmoker Start:15-Oct-2019 Instruction Type:Patient Education How to access health informa tion online - Detail Indication:Nonsmoker Start:15-Oct-2019 Instruction Type:Patient Education Patient Instructions Indication:Nonsmoker Start:15-Oct-2019 Instruction Type:Provider Instructions for Treatment How to access health informa tion online - Detail Indication:BMI 50.0-59.9, adult Start:02-Apr-2019 Instruction Type:Patient Education How to access health informa tion online Indication:BMI 50.0-59.9, adult Start:02-Apr-2019 Instruction Type:Patient Education Patient Instructions Indication:BMI 50.0-59.9, adult Start:02-Apr-2019 Instruction Type:Provider Instructions for Treatment How to access health informa tion online Indication:BMI 50.0-59.9, adult Start:15-Feb-2019 Instruction Type:Patient Education How to access health informa tion online - Detail Indication:BMI 50.0-59.9, adult Start:15-Feb-2019 Instruction Type:Patient Education Patient Instructions Indication:BMI 50.0-59.9, adult Start:15-Feb-2019 Instruction Type:Provider Instructions for Treatment How to access health informa tion online Indication:Nonsmoker Start:09-Feb-2019 Instruction Type:Patient Education How to access health informa tion online - Detail Indication:Nonsmoker Start:09-Feb-2019 Instruction Type:Patient Education Patient Instructions Indication:Nonsmoker Start:09-Feb-2019 Instruction Type:Provider Instructions for Treatment How to access health informa tion online Indication:BMI 50.0-59.9, adult Start:22-Jan-2019 Instruction Type:Patient Education How to access health informa tion online - Detail Indication:BMI 50.0-59.9, adult Start:22-Jan-2019 Instruction Type:Patient Education Patient Instructions Indication:BMI 50.0-59.9, adult Start:22-Jan-2019 Instruction Type:Provider Instructions for Treatment How to access health informa tion online Indication:Nonsmoker Start:05-Oct-2018 Instruction Type:Patient Education How to access health informa tion online - Detail Indication:Nonsmoker Start:05-Oct-2018 Instruction Type:Patient Education Patient Instructions Indication:Nonsmoker Start:05-Oct-2018 Instruction Type:Provider Instructions for Treatment How to access health informa tion online Indication:BMI 50.0-59.9, adult Start:13-Jan-2018 Instruction Type:Patient Education How to access health informa tion online - Detail Indication:BMI 50.0-59.9, adult Start:13-Jan-2018 Instruction Type:Patient Education Patient Instructions Indication:BMI 50.0-59.9, adult Start:13-Jan-2018 Instruction Type:Provider Instructions for Treatment How to access health informa tion online Indication:Nonsmoker Start:06-Jan-2018 Instruction Type:Patient Education How to access health informa tion online - Detail Indication:Nonsmoker Start:06-Jan-2018 Instruction Type:Patient Education Patient Instructions Indication:Nonsmoker Start:06-Jan-2018 Instruction Type:Provider Instructions for Treatment Name Dates Details How to access health informa tion online Indication:Non-smoker Start:05-May-2020 Instruction Type:Patient Education How to access health informa tion online - Detail Indication:Non-smoker Start:05-May-2020 Instruction Type:Patient Education Patient Instructions Indication:Non-smoker Start:05-May-2020 Instruction Type:Provider Instructions for Treatment How to access health informa tion online Indication:Non-smoker Start:22-Apr-2020 Instruction Type:Patient Education How to access health informa tion online - Detail Indication:Non-smoker Start:22-Apr-2020 Instruction Type:Patient Education Patient Instructions Indication:Non-smoker Start:22-Apr-2020 Instruction Type:Provider Instructions for Treatment How to access health informa tion online Indication:Urinary frequency Start:27-Feb-2020 Instruction Type:Patient Education How to access health informa tion online - Detail Indication:Urinary frequency Start:27-Feb-2020 Instruction Type:Patient Education Patient Instructions Indication:Urinary frequency Start:27-Feb-2020 Instruction Type:Provider Instructions for Treatment How to access health informa tion online Indication:Non-smoker Start:15-Feb-2020 Instruction Type:Patient Education How to access health informa tion online - Detail Indication:Non-smoker Start:15-Feb-2020 Instruction Type:Patient Education Patient Instructions Indication:Non-smoker Start:15-Feb-2020 Instruction Type:Provider Instructions for Treatment obesity counseling Indication:Hypertension Start:03-Dec-2019 Instruction Type:Provider Instructions for Treatment How to access health informa tion online Indication:BMI 45.0-49.9, adult Start:14-Nov-2019 Instruction Type:Patient Education How to access health informa tion online - Detail Indication:BMI 45.0-49.9, adult Start:14-Nov-2019 Instruction Type:Patient Education Patient Instructions Indication:BMI 45.0-49.9, adult Start:14-Nov-2019 Instruction Type:Provider Instructions for Treatment How to access health informa tion online Indication:Non-smoker Start:01-Nov-2019 Instruction Type:Patient Education How to access health informa tion online - Detail Indication:Non-smoker Start:01-Nov-2019 Instruction Type:Patient Education Patient Instructions Indication:Non-smoker Start:01-Nov-2019 Instruction Type:Provider Instructions for Treatment How to access health informa tion online Indication:Nonsmoker Start:15-Oct-2019 Instruction Type:Patient Education How to access health informa tion online - Detail Indication:Nonsmoker Start:15-Oct-2019 Instruction Type:Patient Education Patient Instructions Indication:Nonsmoker Start:15-Oct-2019 Instruction Type:Provider Instructions for Treatment How to access health informa tion online - Detail Indication:BMI 50.0-59.9, adult Start:02-Apr-2019 Instruction Type:Patient Education How to access health informa tion online Indication:BMI 50.0-59.9, adult Start:02-Apr-2019 Instruction Type:Patient Education Patient Instructions Indication:BMI 50.0-59.9, adult Start:02-Apr-2019 Instruction Type:Provider Instructions for Treatment How to access health informa tion online Indication:BMI 50.0-59.9, adult Start:15-Feb-2019 Instruction Type:Patient Education How to access health informa tion online - Detail Indication:BMI 50.0-59.9, adult Start:15-Feb-2019 Instruction Type:Patient Education Patient Instructions Indication:BMI 50.0-59.9, adult Start:15-Feb-2019 Instruction Type:Provider Instructions for Treatment How to access health informa tion online Indication:Nonsmoker Start:09-Feb-2019 Instruction Type:Patient Education How to access health informa tion online - Detail Indication:Nonsmoker Start:09-Feb-2019 Instruction Type:Patient Education Patient Instructions Indication:Nonsmoker Start:09-Feb-2019 Instruction Type:Provider Instructions for Treatment How to access health informa tion online Indication:BMI 50.0-59.9, adult Start:22-Jan-2019 Instruction Type:Patient Education How to access health informa tion online - Detail Indication:BMI 50.0-59.9, adult Start:22-Jan-2019 Instruction Type:Patient Education Patient Instructions Indication:BMI 50.0-59.9, adult Start:22-Jan-2019 Instruction Type:Provider Instructions for Treatment How to access health informa tion online Indication:Nonsmoker Start:05-Oct-2018 Instruction Type:Patient Education How to access health informa tion online - Detail Indication:Nonsmoker Start:05-Oct-2018 Instruction Type:Patient Education Patient Instructions Indication:Nonsmoker Start:05-Oct-2018 Instruction Type:Provider Instructions for Treatment How to access health informa tion online Indication:BMI 50.0-59.9, adult Start:13-Jan-2018 Instruction Type:Patient Education How to access health informa tion online - Detail Indication:BMI 50.0-59.9, adult Start:13-Jan-2018 Instruction Type:Patient Education Patient Instructions Indication:BMI 50.0-59.9, adult Start:13-Jan-2018 Instruction Type:Provider Instructions for Treatment How to access health informa tion online Indication:Nonsmoker Start:06-Jan-2018 Instruction Type:Patient Education How to access health informa tion online - Detail Indication:Nonsmoker Start:06-Jan-2018 Instruction Type:Patient Education Patient Instructions Indication:Nonsmoker Start:06-Jan-2018 Instruction Type:Provider Instructions for Treatment Name Dates Details How to access health informa tion online Indication:Non-smoker Start:15-Feb-2020 Instruction Type:Patient Education How to access health informa tion online - Detail Indication:Non-smoker Start:15-Feb-2020 Instruction Type:Patient Education Patient Instructions Indication:Non-smoker Start:15-Feb-2020 Instruction Type:Provider Instructions for Treatment obesity counseling Indication:Hypertension Start:03-Dec-2019 Instruction Type:Provider Instructions for Treatment How to access health informa tion online Indication:BMI 45.0-49.9, adult Start:14-Nov-2019 Instruction Type:Patient Education How to access health informa tion online - Detail Indication:BMI 45.0-49.9, adult Start:14-Nov-2019 Instruction Type:Patient Education Patient Instructions Indication:BMI 45.0-49.9, adult Start:14-Nov-2019 Instruction Type:Provider Instructions for Treatment How to access health informa tion online Indication:Non-smoker Start:01-Nov-2019 Instruction Type:Patient Education How to access health informa tion online - Detail Indication:Non-smoker Start:01-Nov-2019 Instruction Type:Patient Education Patient Instructions Indication:Non-smoker Start:01-Nov-2019 Instruction Type:Provider Instructions for Treatment How to access health informa tion online Indication:Nonsmoker Start:15-Oct-2019 Instruction Type:Patient Education How to access health informa tion online - Detail Indication:Nonsmoker Start:15-Oct-2019 Instruction Type:Patient Education Patient Instructions Indication:Nonsmoker Start:15-Oct-2019 Instruction Type:Provider Instructions for Treatment How to access health informa tion online - Detail Indication:BMI 50.0-59.9, adult Start:02-Apr-2019 Instruction Type:Patient Education How to access health informa tion online Indication:BMI 50.0-59.9, adult Start:02-Apr-2019 Instruction Type:Patient Education Patient Instructions Indication:BMI 50.0-59.9, adult Start:02-Apr-2019 Instruction Type:Provider Instructions for Treatment How to access health informa tion online Indication:BMI 50.0-59.9, adult Start:15-Feb-2019 Instruction Type:Patient Education How to access health informa tion online - Detail Indication:BMI 50.0-59.9, adult Start:15-Feb-2019 Instruction Type:Patient Education Patient Instructions Indication:BMI 50.0-59.9, adult Start:15-Feb-2019 Instruction Type:Provider Instructions for Treatment How to access health informa tion online Indication:Nonsmoker Start:09-Feb-2019 Instruction Type:Patient Education How to access health informa tion online - Detail Indication:Nonsmoker Start:09-Feb-2019 Instruction Type:Patient Education Patient Instructions Indication:Nonsmoker Start:09-Feb-2019 Instruction Type:Provider Instructions for Treatment How to access health informa tion online Indication:BMI 50.0-59.9, adult Start:22-Jan-2019 Instruction Type:Patient Education How to access health informa tion online - Detail Indication:BMI 50.0-59.9, adult Start:22-Jan-2019 Instruction Type:Patient Education Patient Instructions Indication:BMI 50.0-59.9, adult Start:22-Jan-2019 Instruction Type:Provider Instructions for Treatment How to access health informa tion online Indication:Nonsmoker Start:05-Oct-2018 Instruction Type:Patient Education How to access health informa tion online - Detail Indication:Nonsmoker Start:05-Oct-2018 Instruction Type:Patient Education Patient Instructions Indication:Nonsmoker Start:05-Oct-2018 Instruction Type:Provider Instructions for Treatment How to access health informa tion online Indication:BMI 50.0-59.9, adult Start:13-Jan-2018 Instruction Type:Patient Education How to access health informa tion online - Detail Indication:BMI 50.0-59.9, adult Start:13-Jan-2018 Instruction Type:Patient Education Patient Instructions Indication:BMI 50.0-59.9, adult Start:13-Jan-2018 Instruction Type:Provider Instructions for Treatment How to access health informa tion online Indication:Nonsmoker Start:06-Jan-2018 Instruction Type:Patient Education How to access health informa tion online - Detail Indication:Nonsmoker Start:06-Jan-2018 Instruction Type:Patient Education Patient Instructions Indication:Nonsmoker Start:06-Jan-2018 Instruction Type:Provider Instructions for Treatment Name Dates Details How to access health informa tion online Indication:BMI 50.0-59.9, adult Start:22-Jan-2019 Instruction Type:Patient Education How to access health informa tion online - Detail Indication:BMI 50.0-59.9, adult Start:22-Jan-2019 Instruction Type:Patient Education Patient Instructions Indication:BMI 50.0-59.9, adult Start:22-Jan-2019 Instruction Type:Provider Instructions for Treatment How to access health informa tion online Indication:Nonsmoker Start:05-Oct-2018 Instruction Type:Patient Education How to access health informa tion online - Detail Indication:Nonsmoker Start:05-Oct-2018 Instruction Type:Patient Education Patient Instructions Indication:Nonsmoker Start:05-Oct-2018 Instruction Type:Provider Instructions for Treatment How to access health informa tion online Indication:BMI 50.0-59.9, adult Start:13-Jan-2018 Instruction Type:Patient Education How to access health informa tion online - Detail Indication:BMI 50.0-59.9, adult Start:13-Jan-2018 Instruction Type:Patient Education Patient Instructions Indication:BMI 50.0-59.9, adult Start:13-Jan-2018 Instruction Type:Provider Instructions for Treatment How to access health informa tion online Indication:Nonsmoker Start:06-Jan-2018 Instruction Type:Patient Education How to access health informa tion online - Detail Indication:Nonsmoker Start:06-Jan-2018 Instruction Type:Patient Education Patient Instructions Indication:Nonsmoker Start:06-Jan-2018 Instruction Type:Provider Instructions for Treatment Name Dates Details How to access health informa tion online Indication:Nonsmoker Start:05-Oct-2018 Instruction Type:Patient Education How to access health informa tion online - Detail Indication:Nonsmoker Start:05-Oct-2018 Instruction Type:Patient Education Patient Instructions Indication:Nonsmoker Start:05-Oct-2018 Instruction Type:Provider Instructions for Treatment How to access health informa tion online Indication:BMI 50.0-59.9, adult Start:13-Jan-2018 Instruction Type:Patient Education How to access health informa tion online - Detail Indication:BMI 50.0-59.9, adult Start:13-Jan-2018 Instruction Type:Patient Education Patient Instructions Indication:BMI 50.0-59.9, adult Start:13-Jan-2018 Instruction Type:Provider Instructions for Treatment How to access health informa tion online Indication:Nonsmoker Start:06-Jan-2018 Instruction Type:Patient Education How to access health informa tion online - Detail Indication:Nonsmoker Start:06-Jan-2018 Instruction Type:Patient Education Patient Instructions Indication:Nonsmoker Start:06-Jan-2018 Instruction Type:Provider Instructions for Treatment Name Dates Details How to access health informa tion online Indication:Non-smoker Start:05-May-2020 Instruction Type:Patient Education How to access health informa tion online - Detail Indication:Non-smoker Start:05-May-2020 Instruction Type:Patient Education Patient Instructions Indication:Non-smoker Start:05-May-2020 Instruction Type:Provider Instructions for Treatment How to access health informa tion online Indication:Non-smoker Start:22-Apr-2020 Instruction Type:Patient Education How to access health informa tion online - Detail Indication:Non-smoker Start:22-Apr-2020 Instruction Type:Patient Education Patient Instructions Indication:Non-smoker Start:22-Apr-2020 Instruction Type:Provider Instructions for Treatment How to access health informa tion online Indication:Urinary frequency Start:27-Feb-2020 Instruction Type:Patient Education How to access health informa tion online - Detail Indication:Urinary frequency Start:27-Feb-2020 Instruction Type:Patient Education Patient Instructions Indication:Urinary frequency Start:27-Feb-2020 Instruction Type:Provider Instructions for Treatment How to access health informa tion online Indication:Non-smoker Start:15-Feb-2020 Instruction Type:Patient Education How to access health informa tion online - Detail Indication:Non-smoker Start:15-Feb-2020 Instruction Type:Patient Education Patient Instructions Indication:Non-smoker Start:15-Feb-2020 Instruction Type:Provider Instructions for Treatment obesity counseling Indication:Hypertension Start:03-Dec-2019 Instruction Type:Provider Instructions for Treatment How to access health informa tion online Indication:BMI 45.0-49.9, adult Start:14-Nov-2019 Instruction Type:Patient Education How to access health informa tion online - Detail Indication:BMI 45.0-49.9, adult Start:14-Nov-2019 Instruction Type:Patient Education Patient Instructions Indication:BMI 45.0-49.9, adult Start:14-Nov-2019 Instruction Type:Provider Instructions for Treatment How to access health informa tion online Indication:Non-smoker Start:01-Nov-2019 Instruction Type:Patient Education How to access health informa tion online - Detail Indication:Non-smoker Start:01-Nov-2019 Instruction Type:Patient Education Patient Instructions Indication:Non-smoker Start:01-Nov-2019 Instruction Type:Provider Instructions for Treatment How to access health informa tion online Indication:Nonsmoker Start:15-Oct-2019 Instruction Type:Patient Education How to access health informa tion online - Detail Indication:Nonsmoker Start:15-Oct-2019 Instruction Type:Patient Education Patient Instructions Indication:Nonsmoker Start:15-Oct-2019 Instruction Type:Provider Instructions for Treatment How to access health informa tion online - Detail Indication:BMI 50.0-59.9, adult Start:02-Apr-2019 Instruction Type:Patient Education How to access health informa tion online Indication:BMI 50.0-59.9, adult Start:02-Apr-2019 Instruction Type:Patient Education Patient Instructions Indication:BMI 50.0-59.9, adult Start:02-Apr-2019 Instruction Type:Provider Instructions for Treatment How to access health informa tion online Indication:BMI 50.0-59.9, adult Start:15-Feb-2019 Instruction Type:Patient Education How to access health informa tion online - Detail Indication:BMI 50.0-59.9, adult Start:15-Feb-2019 Instruction Type:Patient Education Patient Instructions Indication:BMI 50.0-59.9, adult Start:15-Feb-2019 Instruction Type:Provider Instructions for Treatment How to access health informa tion online Indication:Nonsmoker Start:09-Feb-2019 Instruction Type:Patient Education How to access health informa tion online - Detail Indication:Nonsmoker Start:09-Feb-2019 Instruction Type:Patient Education Patient Instructions Indication:Nonsmoker Start:09-Feb-2019 Instruction Type:Provider Instructions for Treatment How to access health informa tion online Indication:BMI 50.0-59.9, adult Start:22-Jan-2019 Instruction Type:Patient Education How to access health informa tion online - Detail Indication:BMI 50.0-59.9, adult Start:22-Jan-2019 Instruction Type:Patient Education Patient Instructions Indication:BMI 50.0-59.9, adult Start:22-Jan-2019 Instruction Type:Provider Instructions for Treatment How to access health informa tion online Indication:Nonsmoker Start:05-Oct-2018 Instruction Type:Patient Education How to access health informa tion online - Detail Indication:Nonsmoker Start:05-Oct-2018 Instruction Type:Patient Education Patient Instructions Indication:Nonsmoker Start:05-Oct-2018 Instruction Type:Provider Instructions for Treatment How to access health informa tion online Indication:BMI 50.0-59.9, adult Start:13-Jan-2018 Instruction Type:Patient Education How to access health informa tion online - Detail Indication:BMI 50.0-59.9, adult Start:13-Jan-2018 Instruction Type:Patient Education Patient Instructions Indication:BMI 50.0-59.9, adult Start:13-Jan-2018 Instruction Type:Provider Instructions for Treatment How to access health informa tion online Indication:Nonsmoker Start:06-Jan-2018 Instruction Type:Patient Education How to access health informa tion online - Detail Indication:Nonsmoker Start:06-Jan-2018 Instruction Type:Patient Education Patient Instructions Indication:Nonsmoker Start:06-Jan-2018 Instruction Type:Provider Instructions for Treatment Name Dates Details Patient Instructions Indication:Non-smoker Start:04-Sep-2020 Instruction Type:Provider Instructions for Treatment How to Access Health Informa tion Online using Patient Portal and [employer] Apps Indication:Non-smoker Start:04-Sep-2020 Instruction Type:Patient Education How to access health informa tion online Indication:Non-smoker Start:05-May-2020 Instruction Type:Patient Education How to access health informa tion online - Detail Indication:Non-smoker Start:05-May-2020 Instruction Type:Patient Education Patient Instructions Indication:Non-smoker Start:05-May-2020 Instruction Type:Provider Instructions for Treatment How to access health informa tion online Indication:Non-smoker Start:22-Apr-2020 Instruction Type:Patient Education How to access health informa tion online - Detail Indication:Non-smoker Start:22-Apr-2020 Instruction Type:Patient Education Patient Instructions Indication:Non-smoker Start:22-Apr-2020 Instruction Type:Provider Instructions for Treatment How to access health informa tion online Indication:Urinary frequency Start:27-Feb-2020 Instruction Type:Patient Education How to access health informa tion online - Detail Indication:Urinary frequency Start:27-Feb-2020 Instruction Type:Patient Education Patient Instructions Indication:Urinary frequency Start:27-Feb-2020 Instruction Type:Provider Instructions for Treatment How to access health informa tion online Indication:Non-smoker Start:15-Feb-2020 Instruction Type:Patient Education How to access health informa tion online - Detail Indication:Non-smoker Start:15-Feb-2020 Instruction Type:Patient Education Patient Instructions Indication:Non-smoker Start:15-Feb-2020 Instruction Type:Provider Instructions for Treatment obesity counseling Indication:Hypertension Start:03-Dec-2019 Instruction Type:Provider Instructions for Treatment How to access health informa tion online Indication:BMI 45.0-49.9, adult Start:14-Nov-2019 Instruction Type:Patient Education How to access health informa tion online - Detail Indication:BMI 45.0-49.9, adult Start:14-Nov-2019 Instruction Type:Patient Education Patient Instructions Indication:BMI 45.0-49.9, adult Start:14-Nov-2019 Instruction Type:Provider Instructions for Treatment How to access health informa tion online Indication:Non-smoker Start:01-Nov-2019 Instruction Type:Patient Education How to access health informa tion online - Detail Indication:Non-smoker Start:01-Nov-2019 Instruction Type:Patient Education Patient Instructions Indication:Non-smoker Start:01-Nov-2019 Instruction Type:Provider Instructions for Treatment How to access health informa tion online Indication:Nonsmoker Start:15-Oct-2019 Instruction Type:Patient Education How to access health informa tion online - Detail Indication:Nonsmoker Start:15-Oct-2019 Instruction Type:Patient Education Patient Instructions Indication:Nonsmoker Start:15-Oct-2019 Instruction Type:Provider Instructions for Treatment How to access health informa tion online - Detail Indication:BMI 50.0-59.9, adult Start:02-Apr-2019 Instruction Type:Patient Education How to access health informa tion online Indication:BMI 50.0-59.9, adult Start:02-Apr-2019 Instruction Type:Patient Education Patient Instructions Indication:BMI 50.0-59.9, adult Start:02-Apr-2019 Instruction Type:Provider Instructions for Treatment How to access health informa tion online Indication:BMI 50.0-59.9, adult Start:15-Feb-2019 Instruction Type:Patient Education How to access health informa tion online - Detail Indication:BMI 50.0-59.9, adult Start:15-Feb-2019 Instruction Type:Patient Education Patient Instructions Indication:BMI 50.0-59.9, adult Start:15-Feb-2019 Instruction Type:Provider Instructions for Treatment How to access health informa tion online Indication:Nonsmoker Start:09-Feb-2019 Instruction Type:Patient Education How to access health informa tion online - Detail Indication:Nonsmoker Start:09-Feb-2019 Instruction Type:Patient Education Patient Instructions Indication:Nonsmoker Start:09-Feb-2019 Instruction Type:Provider Instructions for Treatment How to access health informa tion online Indication:BMI 50.0-59.9, adult Start:22-Jan-2019 Instruction Type:Patient Education How to access health informa tion online - Detail Indication:BMI 50.0-59.9, adult Start:22-Jan-2019 Instruction Type:Patient Education Patient Instructions Indication:BMI 50.0-59.9, adult Start:22-Jan-2019 Instruction Type:Provider Instructions for Treatment How to access health informa tion online Indication:Nonsmoker Start:05-Oct-2018 Instruction Type:Patient Education How to access health informa tion online - Detail Indication:Nonsmoker Start:05-Oct-2018 Instruction Type:Patient Education Patient Instructions Indication:Nonsmoker Start:05-Oct-2018 Instruction Type:Provider Instructions for Treatment How to access health informa tion online Indication:BMI 50.0-59.9, adult Start:13-Jan-2018 Instruction Type:Patient Education How to access health informa tion online - Detail Indication:BMI 50.0-59.9, adult Start:13-Jan-2018 Instruction Type:Patient Education Patient Instructions Indication:BMI 50.0-59.9, adult Start:13-Jan-2018 Instruction Type:Provider Instructions for Treatment How to access health informa tion online Indication:Nonsmoker Start:06-Jan-2018 Instruction Type:Patient Education How to access health informa tion online - Detail Indication:Nonsmoker Start:06-Jan-2018 Instruction Type:Patient Education Patient Instructions Indication:Nonsmoker Start:06-Jan-2018 Instruction Type:Provider Instructions for Treatment Name Dates Details Patient Instructions Indication:Non-smoker Start:04-Sep-2020 Instruction Type:Provider Instructions for Treatment How to Access Health Informa tion Online using Patient Portal and [employer] Apps Indication:Non-smoker Start:04-Sep-2020 Instruction Type:Patient Education How to access health informa tion online Indication:Non-smoker Start:05-May-2020 Instruction Type:Patient Education How to access health informa tion online - Detail Indication:Non-smoker Start:05-May-2020 Instruction Type:Patient Education Patient Instructions Indication:Non-smoker Start:05-May-2020 Instruction Type:Provider Instructions for Treatment How to access health informa tion online Indication:Non-smoker Start:22-Apr-2020 Instruction Type:Patient Education How to access health informa tion online - Detail Indication:Non-smoker Start:22-Apr-2020 Instruction Type:Patient Education Patient Instructions Indication:Non-smoker Start:22-Apr-2020 Instruction Type:Provider Instructions for Treatment How to access health informa tion online Indication:Urinary frequency Start:27-Feb-2020 Instruction Type:Patient Education How to access health informa tion online - Detail Indication:Urinary frequency Start:27-Feb-2020 Instruction Type:Patient Education Patient Instructions Indication:Urinary frequency Start:27-Feb-2020 Instruction Type:Provider Instructions for Treatment How to access health informa tion online Indication:Non-smoker Start:15-Feb-2020 Instruction Type:Patient Education How to access health informa tion online - Detail Indication:Non-smoker Start:15-Feb-2020 Instruction Type:Patient Education Patient Instructions Indication:Non-smoker Start:15-Feb-2020 Instruction Type:Provider Instructions for Treatment obesity counseling Indication:Hypertension Start:03-Dec-2019 Instruction Type:Provider Instructions for Treatment How to access health informa tion online Indication:BMI 45.0-49.9, adult Start:14-Nov-2019 Instruction Type:Patient Education How to access health informa tion online - Detail Indication:BMI 45.0-49.9, adult Start:14-Nov-2019 Instruction Type:Patient Education Patient Instructions Indication:BMI 45.0-49.9, adult Start:14-Nov-2019 Instruction Type:Provider Instructions for Treatment How to access health informa tion online Indication:Non-smoker Start:01-Nov-2019 Instruction Type:Patient Education How to access health informa tion online - Detail Indication:Non-smoker Start:01-Nov-2019 Instruction Type:Patient Education Patient Instructions Indication:Non-smoker Start:01-Nov-2019 Instruction Type:Provider Instructions for Treatment How to access health informa tion online Indication:Nonsmoker Start:15-Oct-2019 Instruction Type:Patient Education How to access health informa tion online - Detail Indication:Nonsmoker Start:15-Oct-2019 Instruction Type:Patient Education Patient Instructions Indication:Nonsmoker Start:15-Oct-2019 Instruction Type:Provider Instructions for Treatment How to access health informa tion online - Detail Indication:BMI 50.0-59.9, adult Start:02-Apr-2019 Instruction Type:Patient Education How to access health informa tion online Indication:BMI 50.0-59.9, adult Start:02-Apr-2019 Instruction Type:Patient Education Patient Instructions Indication:BMI 50.0-59.9, adult Start:02-Apr-2019 Instruction Type:Provider Instructions for Treatment How to access health informa tion online Indication:BMI 50.0-59.9, adult Start:15-Feb-2019 Instruction Type:Patient Education How to access health informa tion online - Detail Indication:BMI 50.0-59.9, adult Start:15-Feb-2019 Instruction Type:Patient Education Patient Instructions Indication:BMI 50.0-59.9, adult Start:15-Feb-2019 Instruction Type:Provider Instructions for Treatment How to access health informa tion online Indication:Nonsmoker Start:09-Feb-2019 Instruction Type:Patient Education How to access health informa tion online - Detail Indication:Nonsmoker Start:09-Feb-2019 Instruction Type:Patient Education Patient Instructions Indication:Nonsmoker Start:09-Feb-2019 Instruction Type:Provider Instructions for Treatment How to access health informa tion online Indication:BMI 50.0-59.9, adult Start:22-Jan-2019 Instruction Type:Patient Education How to access health informa tion online - Detail Indication:BMI 50.0-59.9, adult Start:22-Jan-2019 Instruction Type:Patient Education Patient Instructions Indication:BMI 50.0-59.9, adult Start:22-Jan-2019 Instruction Type:Provider Instructions for Treatment How to access health informa tion online Indication:Nonsmoker Start:05-Oct-2018 Instruction Type:Patient Education How to access health informa tion online - Detail Indication:Nonsmoker Start:05-Oct-2018 Instruction Type:Patient Education Patient Instructions Indication:Nonsmoker Start:05-Oct-2018 Instruction Type:Provider Instructions for Treatment How to access health informa tion online Indication:BMI 50.0-59.9, adult Start:13-Jan-2018 Instruction Type:Patient Education How to access health informa tion online - Detail Indication:BMI 50.0-59.9, adult Start:13-Jan-2018 Instruction Type:Patient Education Patient Instructions Indication:BMI 50.0-59.9, adult Start:13-Jan-2018 Instruction Type:Provider Instructions for Treatment How to access health informa tion online Indication:Nonsmoker Start:06-Jan-2018 Instruction Type:Patient Education How to access health informa tion online - Detail Indication:Nonsmoker Start:06-Jan-2018 Instruction Type:Patient Education Patient Instructions Indication:Nonsmoker Start:06-Jan-2018 Instruction Type:Provider Instructions for Treatment Summary Purpose Advance Directives No Advanced Directives Records FoundNo Advanced Directives Records FoundNo Advanced Directives Records FoundNo Advanced Directives Records Found Reason for Referral Specialty Diagnoses / Procedures Referred By Contac t Referred To Contact Ophthalmology Diagnoses Long-term use of Plaquenil Procedures CONSULT TO OPHTHALMOLOGY OFFICE/[facility] 60-74 MINUTES Indra Metcalf MD [address] [facility] [place] [address] Referral ID Status Reason Start Date Expiration Date Visits Requested Visits Authorized [id number] Authorized PCP Requested Referral 11/17/2021 11/17/2022 1 1 Specialty Diagnoses / Procedures Referred By Contac t Referred To Contact XR IMAGING Diagnoses Postmenopausal osteoporosis of multiple sites Procedures DXA-FOREARM SKELETON DXA BONE DENSITY STUDY 1/>SITES Indra Henry MD [address] [facility] [place] [address] Xr Imaging Referral ID Status Reason Start Date Expiration Date Visits Requested Visits Authorized [id number] Authorized Auto-Generat ed Referral 11/17/2021 12/17/2022 1 1 Specialty Diagnoses / Procedures Referred By Contac t Referred To Contact Cardiology Diagnoses Chronic congestive heart failure, unspecified heart failure type (HCC) Procedures CONSULT TO CARDIOLOGY OFFICE/[facility] 60-74 MINUTES Indra Metcalf MD [address] [place] [address] Referral ID Status Reason Start Date Expiration Date Visits Requested Visits Authorized [id number] Authorized PCP Requested Referral 02/25/2023 02/25/2024 1 1 Specialty Diagnoses / Procedures Referred By Contac t Referred To Contact XR IMAGING Diagnoses Postmenopausal osteoporosis of multiple sites Procedures DXA-FOREARM SKELETON DXA BONE DENSITY STUDY 1/>SITES APPENDICIndra Biggs MD [address] [place] [address] [place] [address] Referral ID Status Reason Start Date Expiration Date Visits Requested Visits Authorized [id number] Authorized Auto-Generat ed Referral 02/25/2023 03/26/2024 1 1 Additional Source Comments INFORMATION SOURCE (unrecogn ized section and content) DATE CREATED AUTHOR AUTHOR'S ORGANIZ ATION 11/06/2021 [facility] DATE CREATED AUTHOR AUTHOR'S ORGANIZ ATION 10/12/2022 [facility] DATE CREATED AUTHOR AUTHOR'S ORGANIZ ATION 06/14/2023 [facility] Source Comments (unrecognize d section and content) In the event this informatio n is protected by the Federal Confidentiality of Alcohol and Drug Abuse Patient Records regulations: The Federal rules restrict any use of the information to criminally investigate or prosecute any alcohol or drug abuse patient.[facility] the event this information is protected by the Federal Confidentiality of Alcohol and Drug Abuse Patient Records regulations: The Federal rules restrict any use of the information to criminally investigate or prosecute any alcohol or drug abuse patient.[facility] the event this information is protected by the Federal Confidentiality of Alcohol and Drug Abuse Patient Records regulations: The Federal rules restrict any use of the information to criminally investigate or prosecute any alcohol or drug abuse patient.[facility] the event this information is protected by the Federal Confidentiality of Alcohol and Drug Abuse Patient Records regulations: The Federal rules restrict any use of the information to criminally investigate or prosecute any alcohol or drug abuse patient.[facility] Center[facility] the event this information is protected by the Federal Confidentiality of Alcohol and Drug Abuse Patient Records regulations: The Federal rules restrict any use of the information to criminally investigate or prosecute any alcohol or drug abuse patient.[facility] CenterIn the event this information is protected by the Federal Confidentiality of Alcohol and Drug Abuse Patient Records regulations: The Federal rules restrict any use of the information to criminally investigate or prosecute any alcohol or drug abuse patient.[facility] CenterIn the event this information is protected by the Federal Confidentiality of Alcohol and Drug Abuse Patient Records regulations: The Federal rules restrict any use of the information to criminally investigate or prosecute any alcohol or drug abuse patient.[facility] CenterIn the event this information is protected by the Federal Confidentiality of Alcohol and Drug Abuse Patient Records regulations: The Federal rules restrict any use of the information to criminally investigate or prosecute any alcohol or drug abuse patient.[facility] Reason for Visit (unrecogniz ed section and content) Reason Comments Results Reason Comments Follow Up currently off mtx 1 month d/t bladder infection Pain all over more pain , right shoulder, fingers 6/10; ache Reason Onset Date Comments Refill Request 09/27/2022 Reason Comments Pain Ongoing bi-lateral f tara pain. Refill Request Care Teams (unrecognized sec tion and content) Agricultural Specialist Relationship Specialty Start Date End Date Polina Perrin DO [address] [place] [address] PCP - General Internal Medicine 04/15/20 Agricultural Specialist Relationship Specialty Start Date End Date Polina Perrin DO [address] [place], [place] [id number] [phone] PCP - General Internal Medicine 04/15/20 Agricultural Specialist Relationship Specialty Start Date End Date Polina Perrin DO [address] [facility] [address] [place], [place] [phone] PCP - General Internal Medicine 04/15/20 Agricultural Specialist Relationship Specialty Start Date End Date Polina Perrin DO [address] [facility] [address] [place], [place] [phone] PCP - General Internal Medicine 04/15/20 Agricultural Specialist Relationship Specialty Start Date End Date Polina Perrin DO Cherrie [address] [facility] [address] [place], [place] [id number] PCP - General Internal Medicine 04/15/20 Agricultural Specialist Relationship Specialty Start Date End Date Polina Perrin DO Cherrie [address] [facility] [address] [place], [place] [phone] PCP - General Internal Medicine 04/15/20 Agricultural Specialist Relationship Specialty Start Date End Date Polina Perrin Cherrie [address] [facility] [address] [place] [address] PCP - General Internal Medicine 04/15/20 FOR RECORDS PERTAINING TO PATIENTS WHO ARE OR HAVE BEEN ENROLLED IN A CHEMICAL DEPENDENCY/SUBSTANCEABUSE PROGRAM, SOME INFORMATION MAY BE OMITTED. This clinical summary was aggregated from multiple sources. Caution should be exercised in using it in the provision of clinical care. This summary normalizes information from multiple sources, and as a consequence, information in this document may materially change the coding, format and clinical context of patient data. In addition, data may be omitted in some cases. CLINICAL DECISIONS SHOULD BE BASED ON THE PRIMARY CLINICAL RECORDS. [employer] [facility]. provides no warranty or guarantee of the accuracy or completeness of information in this document.
[2023-06-30 21:44] LABS: White Blood Cells 10-25 SEEN /hpf (0-5)
[2023-06-30 21:45] LABS: Bacteria 2+ /hpf (None Seen); Red Blood Cells-Urine 0-5 SEEN /hpf (0-5)
--- NOTE | 2023-06-30 21:50 | RAD_ITS ---
EXAM: XR CHEST, 2 VIEWS CLINICAL INDICATION: cough sob TECHNIQUE: Frontal and lateral views of the chest. COMPARISON: No relevant prior studies available. FINDINGS: LUNGS AND PLEURAL SPACES: Unremarkable. No consolidation or edema. No pneumothorax. No effusion. HEART: Unremarkable. Cardiac silhouette not enlarged. MEDIASTINUM: Central airways and mediastinal contour are unremarkable. BONES/JOINTS: Cervicothoracic fusion hardware identified, incompletely imaged on this study. Degenerative changes of spine and acromioclavicular joints bilaterally. No acute fracture. SOFT TISSUES: Unremarkable. RAD/Chest PA and Lateral IMPRESSION: No acute disease. Electronically Signed: Lucio Mosquera MD at 22:07 EST ,
[2023-06-30 23:16] LABS: Absolute Lymphocyte Count 0.85 X10^3/uL (0.83-4.51); Absolute Neutrophil Count 5.7 X10^3/uL (2.0-7.7); Basophil# 0.03 X10^3/uL; Basophil% 0.4 % (0-1); Eosinophil# 0.09 X10^3/uL; Eosinophils% 1.3 % (0-5); Hematocrit 33.9 % (37-47); Hemoglobin 11.1 g/dL (12.0-15.0); Lymphocyte # 0.85 X10^3/ul (0.83-4.51); Lymphocyte % 11.8 % (19-41); Mean Corp Hgb Conc 32.7 g/dL (32-36); Mean Corpuscular Volume 91.6 fL (81-99); Monocyte# 0.53 X10^3/uL; Monocyte% 7.4 % (0-10); NRBC Flagged by Analyzer 0 % (0-5); Neutrophil # 5.67 X10^3/uL (2.7-7.7); Neutrophil % 78.7 % (47-70); Platelet Count 169 K/mm3 (150-450); RBC Distribution Width SD 49.9 fl (35.1-43.9); White Blood Count 7.2 K/mm3 (4.4-11.0)
[2023-06-30 23:32] LABS: Anion Gap 5 (5-15); BUN 17 mg/dL (7-18); BUN/Creat Ratio 20.5 RATIO (10-20); Calcium,Total 8.7 mg/dL (8.5-10.1); Chloride 109 mmol/L (98-107); Creatinine, Serum 0.83 mg/dL (0.55-1.02); EST Glomerular Filtration Rate 73 mL/min (>60); Est Glom Filt Rate - Afr Amer 88 mL/min (>60); Estimated Creatinine Clearance 76.83 ml/min; Glucose 127 mg/dL (74-106); Potassium 3.6 mmol/L (3.5-5.1); Sodium Level 140 mmol/L (136-145)
[2023-06-30 23:38] LABS: Lactic Acid 1.1 mmol/L (0.4-1.9)
[2023-06-30] MEDS: Metoclopramide 10 MG Tablet PO (23:50)
[2023-06-30] MEDS: Ceftriaxone 1 GM/50 ML BAG IV (23:50)
[2023-06-30 23:54] VITALS: BP 105/51; PULSE 70; PULSE 71; RESP 16; RESP 18; TEMP 36.8; O2SAT 95; O2SAT 96
[2023-07-01] VITALS (8 sets, daily range): BP systolic 104–141; BP diastolic 39–62; PULSE 65–78; RESP 16–18; TEMP 36.4–38.3; O2SAT 96–98; BMI 51.9
--- NOTE | 2023-07-01 00:04 | PCM.HP.STD ---
HPI - General General Date of Admission: 07/01/23 Date of Service: 07/01/23 Chief Complaint: Fever/chills HPI Narrative ELDA WADDELL, is a 67 F who presented to the emergency department at [facility] on 06/30/2023 with subjective fevers and chills that started yesterday. She also complained of some mild nonproductive cough but it is very minimal. She has had some dyspnea with exertion but this is chronic. She had no vomiting, no diarrhea but did complain of urinary frequency and some mild dysuria. She did complain of some headaches and nausea. Family states she has been a little bit confused and she did report that she had a fever at home but does not feel like she has been at the present time. Family reported that she was also considerably weak and having difficulty getting around and lives alone. Vital signs on presentation showed temperature of 99.9, heart rate 83, blood pressure 105/64, respiratory rate is 22 and oxygen saturations are 94% on room air. CBC is unremarkable other than a mild anemia with a hemoglobin of 11.1. This is normocytic. She does have a neutrophilia with a left shift at 78.7%. Chemistry panel was overall unremarkable other than mild hyperglycemia with a glucose of 127 however this is nonfasting. Lactic was 1.1. UA showed nitrates, leuk esterase, white cells, and 2+ bacteria and was consistent with infection. Chest x-ray is unremarkable. EKG is normal sinus rhythm with slightly prolonged QTc, normal MN intervals and no ST-T wave changes concerning for acute ischemia. Rapid COVID/influenza and RSV were negative. In the emergency department she was given ceftriaxone after cultures were sent, Reglan, and acetaminophen [facility] Medical History Atypical chest pain BMI 45.0-49.9, adult Essential hypertension History of left heart catheterization (10/03/13) Hyperlipidemia Hypothyroidism Mitral valve stenosis Morbid obesity LUIZA on CPAP Osteoarthritis Osteoarthritis of right knee Other spondylosis, lumbosacral region Recurrent UTI Rheumatoid arthritis Unstable angina Home Medications folic acid 1 mg tablet 2 tab PO DAILY SUPPLEMENT 12/29/18 [History Last Taken 10/12/22] hydroxychloroquine 200 mg tablet 1 tab PO BID 12/29/18 [History Last Taken 10/13/22] methotrexate sodium 2.5 mg tablet 8 tab PO QWEEK 12/29/18 [History Last Taken 10/03/22] thyroid (pork) 90 mg tablet ([place] Thyroid) 90 mg PO DAILY THYROID 12/29/18 [History Last Taken 10/13/22] multivitamin 1 tab PO DAILY 06/12/21 [History Last Taken 10/12/22] nitroglycerin 0.4 mg sublingual tablet 0.4 mg sublingual Q5M PRN Cardiac/Chest Pain #30 tabs 10/14/22 [Rx Last Taken Unknown] aspirin 81 mg tablet,delayed release 243 mg PO DAILY HEART HEALTH 11/12/22 [History Last Taken Unknown] furosemide 40 mg tablet 40 mg PO BID FLUID #180 tabs 02/02/23 [Rx Last Taken Unknown] metoprolol tartrate 25 mg tablet 12.5 mg PO BID 06/22/23 [History Last Taken Unknown] Allergy/AdvReac Type Severity Reaction Status Date / Time nitrofurantoin Allergy Unknown UNKNOWN Verified 06/30/23 21:09 [From Macrobid] amoxicillin Allergy Rash Verified 06/30/23 21:09 losartan AdvReac Intermediate Hypotension Verified 06/30/23 21:09 and dizzy even on 12.5 mg Family History Mother CVA (cerebral vascular accident) Thyroid disorder Father Heart disease Diabetes Grandmother Cancer Surgical History History of hysterectomy (~1981) History of lumbar spinal fusion (03/14/19) Social History Smoking Status: Never smoker alcohol intake: never substance use type: does not use caffeine: Yes Type: coffee Number of servings: 1 ROS Constitutional Constitutional: Reports chills, fatigue, fever(s), malaise and weakness Eyes Eyes: Denies blurry vision, change in eye color, change in vision, discharge from eye(s), double vision, erythema, eye pain, loss of vision or other ENT HEENT: Reports headache(s); Denies abnormal hearing, dysphagia, ear pain, epistaxis, hearing loss, nasal congestion, nasal discharge, post nasal drip, sinus pressure, sore throat or other Cardiovascular Cardiovascular: Denies chest pain, claudication, dyspnea on exertion, edema, lightheadedness, orthopnea, palpitations, paroxysmal nocturnal dyspnea, rapid heart rate, syncope or other Respiratory/Chest Respiratory/Chest: Denies cough, dyspnea, excessive phlegm production, hemoptysis, productive cough, shortness of breath at rest, shortness of breath with exertion, wheezing or other Gastrointestinal Gastrointestinal: Reports abdominal pain and nausea; Denies coffee ground emesis, constipation, diarrhea, dyspepsia, hematemesis, hematochezia, loose stools, melena, vomiting or other Genitourinary Genitourinary: Reports burning urination, dysuria and urinary frequency; Denies difficulty urinating, hematuria, nocturia, urinary hesitancy, urinary incontinence, urinary urgency or other Musculoskeletal Musculoskeletal: Reports back pain and joint pain; Denies arthralgias, joint stiffness, joint swelling, myalgias, neck pain or other Neurologic Neurologic: Reports headache(s); Denies abnormal gait, abnormal speech, confusion, disequilibrium, dizziness, focal weakness, numbness, paresthesias, seizure-like activity, seizures, syncope, tingling, tremor(s) or other Psychiatric Psychiatric: Denies anxiety, depression, homicidal ideation, suicidal ideation or other Endocrine Endocrinology: Denies change in body appearance, cold intolerance, excessive sweating, heat intolerance, polydipsia, polyuria or other Hematologic/Lymphatic Hematologic/Lymphatic: Denies anemia, easy bleeding, easy bruising, lymphadenopathy or other Allergic/Immunologic Allergic/Immunologic: Denies rhinitis, hives, eczemia, asthma or other Vital Signs Vital Signs Vital Signs: 06/30/23 21:09 06/30/23 23:54 06/30/23 23:54 Temperature 99.9 F H 98.2 F Temperature Source Temporal Pulse Rate 83 70 71 Respiratory Rate 22 H 16 18 Respiratory Pattern Blood Pressure 105/64 105/51 L 105/51 L Blood Pressure Mean 77 69 69 Pulse Ox 94 95 96 Oxygen Delivery Method Room Air 06/30/23 23:58 Temperature Temperature Source Pulse Rate Respiratory Rate Respiratory Pattern Normal Blood Pressure Blood Pressure Mean Pulse Ox Oxygen Delivery Method Weight Weight: 119.3 kg Body Mass Index (BMI) 53.1 Physical Exam Const alert, oriented x3, no apparent distress and well nourished; Negative for average body habitus or healthy appearing Constitutional Narrative: Sleepy, morbidly obese, white female, lying in bed trying to sleep but awakens easily, appears nontoxic but fatigued General Appearance: cooperative HEENT normocephalic, head/scalp atraumatic, hearing grossly normal bilaterally and moist oral mucous membranes HEENT Narrative: Mallampati 3, no thrush, dentures in place Eyes PERRL, EOMs intact bilaterally and conjunctivae normal Eyes Narrative: No scleral icterus Neck no lymphadenopathy and supple Neck Narrative: Neck is short and thick, trachea midline Resp normal respiratory effort, no retractions, no use of accessory muscles and clear to auscultation bilaterally Auscultation: Negative for rales, rhonchi or wheezes Cardio regular rate, regular rhythm, S1 normal heart sound, S2 normal heart sound, no murmurs, no rub, no gallops and no clicks GI normal to inspection, nondistended, normoactive bowel sounds, soft to palpation and non-tender GI Narrative: Mild tenderness in right flank Extremity no clubbing, cyanosis or edema Extremity Narrative: Pedal pulses are 2+, radial pulses are 2+ bilaterally Skin no rashes or lesions noted, no wounds, skin turgor normal, no jaundice, no petechiae and no mottling Neuro oriented x3, CN's II-XII intact bilaterally, moves all extremities and no focal motor deficits Neuro Narrative: Generalized weakness with proximal muscular greater than distal Speech: speech normal Psych affect normal Psych Narrative: Very pleasant, interacts appropriately Results Lab / Micro Data 06/30/23 23:05 06/30/23 23:05 Labs: Laboratory Results - last 24 hr 06/30/23 21:29: Urine Color Yellow, Urine Clarity Clear, Urine pH 7.0, Ur Specific [place] 1.010, Urine Protein Negative, Urine Glucose (UA) Normal, Urine Ketones Negative, Urine Occult Blood 25 H, Urine Nitrite Positive H, Urine Bilirubin Negative, Urine Urobilinogen Normal, Ur Leukocyte Esterase 500 H, Urine RBC 0-5 SEEN, Urine WBC 10-25 SEEN, Ur Squamous Epith Cells 0 SEEN, Urine Bacteria 2+, Urine Mucus 0 SEEN 06/30/23 23:05: WBC 7.2, RBC 3.70 L, Hgb 11.1 L, Hct 33.9 L, MCV 91.6, MCH 30.0, MCHC 32.7, RDW Std Deviation 49.9 H, RDW Coeff of Noe 15.0 H, Plt Count 169, MPV 9.0, Immature Gran % (Auto) 0.400, Neut % (Auto) 78.7 H, Lymph % (Auto) 11.8 L, [place] % (Auto) 7.4, Eos % (Auto) 1.3, Baso % (Auto) 0.4, Absolute Neuts (auto) 5.7, Absolute Lymphs (auto) 0.85, Nucleated RBC % 0, Sodium 140, Potassium 3.6, Chloride 109 H, Carbon Dioxide 26.0, Anion Gap 5, BUN 17, Creatinine 0.83, Estim Creat Clear Calc 76.83, Est GFR (MDRD) Af Amer 88, Est GFR (MDRD) Non-Af 73, BUN/Creatinine Ratio 20.5 H, Glucose 127 H, Lactic Acid 1.1, Calcium 8.7 Micro: Microbiology 06/30/23 21:29 Mucosa - Nose SARS-CoV-2, Influenza & RSV (PCR) - Final Imaging Radiology Impression Chest X-Ray 06/30/23 21:50 IMPRESSION: No acute disease. Electronically Signed: Lucio Mosquera MD at 22:07 EST , Assessment & Plan Assessment/Plan (1) Acute encephalopathy: (2) UTI (urinary tract infection): (3) Debility: (4) Generalized weakness: (5) Anemia: (6) Hyperglycemia: PLAN: Plan Acute urinary tract infection -Ceftriaxone started emergency department so we will continue 1 mg daily -previous cultures have been reviewed and it looks like all of her positive cultures have been E. coli with various sensitivities however the most previous was pansensitive -Culture was sent and pending Acute encephalopathy -Mild -Suspect related to the above -Continue to monitor -Seems to have improved since arrive to the emergency department Debility/generalized weakness -Consult PT/OT -Case management/social work consult for discharge planning -Hopefully will only need home health at most at discharge Anemia -Mild -Normocytic -Will monitor Hyperglycemia -Patient is not diabetic at baseline -Mild elevation in nonfasting -Repeat lab in a.m. LUIZA -Patient uses CPAP at baseline -Compliance seems to overall not be great at 53% with last documentation -Will order CPAP with 14 cm of water per pulmonary notes Hypertension -Continue home metoprolol with hold parameters -Hold Lasix as blood pressure is somewhat soft on presentation -Reevaluate tomorrow and initiate if appropriate Mitral valve stenosis -Continue outpatient follow-up -Most recent echocardiogram done in September 2022 showed EF of 60% with mild to moderate annular calcification and stable mitral valve stenosis Bilateral carotid artery stenosis -Continue home aspirin -Most recent carotid ultrasound from 11/24/2022 shows a moderate at 50 to 69% stenosis and less than 50% on the left side which is unchanged from previous Rheumatoid arthritis -Continue home hydroxychloroquine -Hold home methotrexate and restart at discharge Hypothyroidism -Continue [place] Thyroid -check TSH Morbid obesity -BMI is 53.1 -Complicates treatment, prognosis, outcomes -Recommend weight loss next DVT prophylaxis -Lovenox 40 mg SQ twice daily CODE STATUS Full code - Charges/Coding Visit Charges Inpatient E&M: 44066 Init Hosp L2
[2023-07-01] MEDS: 0.9% Normal Saline (1000mL) 1,000 ML 999 ML IV (00:38)
--- OUTSIDE RECORDS SUMMARY | 2023-07-01 00:57 | XMS RPT_ITS | CCD ---
Author Name Unknown Address [address] [place] [address] Organization [facility] Care Team Providers Care Sorting And Folding Supervisor Name Role Phone Polina Perrin Unavailable Floridalma Lyle L Unavailable Unavailable Manchak, Kimberly Unavailable Unavailable Unavailable Unavailable Cherrie Vital Unavailable Unavailable Slarb, Jenna Unavailable Unavailable Manchak, Kimberly Unavailable Unavailable Gravius, Katherine Unavailable Unavailable Valeriano Major Unavailable Floridalma Lyle L Unavailable Unavailable Unavailable Unavailable Angi Brandon Unavailable Unavailable Mayela, Fanta Unavailable Unavailable Marychuy DO, Polina Unavailable Moriah , Dr. Bal Unavailable Gravius PATIENT INFORMATION COORDINATOR, Katherine Unavailable Unavailable Cross CARPET SEWER, Angi Unavailable Unavailable Mayela CARPET SEWER, Fanta Unavailable Unavailable Manchak PATIENT INFORMATION COORDINATOR, Kimberly Unavailable Unavailable Unavailable Unavailable Slarb CARPET SEWER, Jenna Unavailable Unavailable Fast DO, Kell A Unavailable Anupama CHURCH, Eric Feng Unavailable MarychuyLeann tariq DOhleen Unavailable Polina Perrin DO [...] Unavailable Marychuy , Polina Consulting Unavailable Joo CARPET SEWER, Fabrice Unavailable Unavailable Michelle De Paz MA [...] sources) Amoxicillin; Translations: [AMOXICILLIN] Drug Allergy 0 [facility] (1 source) Penicillins Drug allergy (disorder) [facility] Repository (20 sources) NITROFURANTOIN, MACROCRYSTALS / Nitrofurantoin, [...] 109.77 kg Indra Metcalf MD Work Phone: [facility] 02-25-2023 10:23-0400 Diastolic blood pressure 54 mm[Hg] Indra Metcalf MD Work Phone: [facility] 02-25-2023 10:23-0400 Heart rate 59 /min Indra Metcalf MD Work Phone: [facility] 02-25-2023 10:23-0400 Systolic blood pressure 114 mm[Hg] Indra Metcalf MD Work Phone: [facility] 02-16-2023 10:52-0400 Body height 152.4 cm Fabrice Ge LPN [facility] Work Phone: 09-20-2023 10:52-0400 Body mass index (BMI) [Ratio] 47.9 kg/m2 [facility] Work Phone: 02-16-2023 10:52-0400 Body surface area Derived from formula 2.04 m2 [facility] Work Phone: 02-16-2023 10:52-0400 Body temperature 97.4 [degF] [facility] Work Phone: 02-16-2023 10:52-0400 Body weight 111.25 kg [facility] Work Phone: 02-16-2023 10:52-0400 Diastolic blood pressure 76 mm[Hg] [facility] Work Phone: Encounters Encounter Date Encounter Type Care Provider Facility Start: 06-09-2023 End: 06-10-2023 ambulatory INDRA METCALF [facility] Start: 03-18-2023 End: 03-18-2023 Annotation/Addendum Polina Perrin DO Work Phone: [facility] Start: 02-25-2023 End: 02-26-2023 ambulatory POLINA PERRIN Facility:[facility] Start: 02-25-2023 End: 02-25-2023 Patient encounter procedure Indra Metcalf MD Work Phone: Rheumatology Procedures Date Procedure Procedure Detail Performing Clinician Start: 01-19-2023 End: 01-20-2023 Head/Neck Soft Tissue Procedure Note: See Note; NOTES: [facility] Imaging Services [address] [place] [address] Head/Neck Soft Tissue MR#: [id number] Acct: [id number] Name: NADIRAELDA Michael Rep #: [id number] : 1955 F 67 From: Klever Singer DO PCP: Dr. Polina Perrin, DO Status: REG CLI Study: Head/Neck Soft Tissue Date of Exam: 01/19/23 Exam# [id number] Ordering Dr: Polina Perrin DO INDICATION: multiple [...] new or enlarging nodules. Electronically Signed: Klever Signer DO at 11:21 EDT , CC: Dr. Polina Perrin DO Furrier Apprentice: Signed Polina Perrin DO Work Phone: Start: 01-17-2023 End: 01-17-2023 Urgent Care Visit Report Procedure Note: See Note; NOTES: [facility] [address], [address] [place] [address] OFFICE VISIT Date of Service: 01/17/23 MR#: [id number] Acct: [id number] Name: ELDA VILLALOBOS Rep #: [id number] : 1955 Provider: LUPIS Obrien Age/Sex: 67/F Location: [facility] Status: Signed Intake Vital Signs 01/07/23 08:34 [...] Urinary tract infection Chief Complaint: POSSIBLE UTI Accounting Software Specialist Required: No Accompanied by: Self Is patient [...] Confirmed 01/17/23] thyroid (pork) 90 mg tablet ([place] Thyroid) 90 mg PO DAILY THYROID 12/29/18 [...] No close contacts with similar complaints. No reza-sft-pbzypdm products that he uses. No other associated [...] MA on 01/17/23 17:40 Off Ur Spec Grannis 1.010 Last Edit by Suad Stephens MA [...] the above. This note was generated with [employer] dictation software. It may contain incorrect words, [...] Visit Report Procedure Note: See Note; NOTES: [facility] [address] [place] [address]. [address] [place] [address] OFFICE VISIT Date of Service: 01/07/23 MR#: [id number] Acct: [id number] Name: ELDA VILLALOBOS Rep #: [id number] : 1955 Provider: FIFI naik Age/Sex: 67/F Location: [facility] Status: Signed HPI HPI History of Present [...] 98 Intake Visit Reasons: 6 wk FU Accounting Software Specialist Required: No Is patient in pain?: No [...] Confirmed 01/07/23] thyroid (pork) 90 mg tablet ([place] Thyroid) 90 mg PO DAILY THYROID 12/29/18 [...] tablet 25 mg PO DAILY 01/07/23 [History] [facility] Medical History Atypical chest pain Essential [...] was performed. Cardiac catheterization 10/14/2022: PROCEDURE(S) PERFORMED DC02-(59159)[facility]/COR CLINICAL PROFILE AND INDICATIONS Indications: Suspected CAD [...] multiple views using a 5 Fr. 4.0 Parachute catheter. Right Coronary Artery selective angiography was [...] necessary. Follow Up: Cancel 02/01/2023 6 Months (NURSE PRACTITIONER HOME ASSESSMENTS/PA) Coding Level of Care Code Off vis,est,level [...] 1526 <Electronically signed by Cherrie Conway NP NURSE PRACTITIONER HOME ASSESSMENTS-C> Date Cherrie Conway NP NURSE PRACTITIONER HOME ASSESSMENTS-C Kathleenignmarisela Signature: Date (if applicable) CC: DO Polina Garcia DO Work Phone: Start: 11-25-2022 End: 11-25-2022 Pulmonary Function Test Procedure Note: See Note; NOTES: [facility] [address] [place] [address] MR#: [id number] Acct: [id number] Name: ELDA VILLALOBOS Rep #: [id number] : 1955 67 From: Royal Thomason DO Referring Dr: Cherrie Conway NP NURSE PRACTITIONER HOME ASSESSMENTS-C Status: REG [facility] Location: [facility] Date: 11/24/22 Sex: F C INTRODUCTION: [...] Thomason DO> Date Royal Thomason DO CC: NURSE PRACTITIONER HOME ASSESSMENTS-C Cherrie Conway; Dr. Polina Perrin DO Date Dictated: 11/25/221004 Date Transcribed: 11/25/221004 Furrier Apprentice: DB Signed Polina Perrin DO Work Phone: Start: 11-24-2022 End: 06-28-2023 Carotid Duplex Ultrasound Procedure Note: See Note; NOTES: [facility] [address] [place] [address] Carotid Duplex Ultrasound 11/24/22 1040 MR#: [id number] Acct: [id number] Name: ELDA VILLALOBOS Rep #: [id number] : 1955 67 From: Percy Tovar MD Attending Dr: Cherrie Conway NURSE PRACTITIONER HOME ASSESSMENTS-C Status: REG C Ordering Dr: Cherrie Conway NURSE PRACTITIONER HOME ASSESSMENTS NURSE PRACTITIONER HOME ASSESSMENTS-C Date: 11/24/22 Location: [facility] Sex: F C [...] the left vertebral artery. Procedure Carotid Duplex 53547. This is a Carotid Duplex examination using [...] Dictated: 11/24/22 1040 Date Transcribed: 11/24/22 1348 Furrier Apprentice: Tone Perrin DO Work Phone: Start: 11-12-2022 End: 11-12-2022 Cardiology Visit Report Procedure Note: See Note; NOTES: [facility] [address] [place] [address] OFFICE VISIT Date of Service: 11/12/22 MR#: [id number] Acct: [id number] Name: ELDA VILLALOBOS Rep #: [id number] : 1955 Provider: FIFI naik Age/Sex: 67/F Location: [facility] Status: Signed HPI [facility] History of Present Illness Details: This is [...] Oximetry (%) 99 Intake Visit Reasons: F/UP Accounting Software Specialist Required: No Is patient in pain?: No [...] Confirmed 11/12/22] thyroid (pork) 90 mg tablet ([place] Thyroid) 90 mg PO DAILY THYROID 12/29/18 [...] DAILY [facility] 11/12/22 [History Confirmed 11/12/22] [facility] Medical History (Reviewed 11/12/22 @ 14:41 by Cherrie Conway NURSE PRACTITIONER HOME ASSESSMENTS, NURSE PRACTITIONER HOME ASSESSMENTS-C) Atypical chest pain Essential hypertension History of [...] (Reviewed 11/12/22 @ 14:41 by Cherrie Conway NURSE PRACTITIONER HOME ASSESSMENTS, NURSE PRACTITIONER HOME ASSESSMENTS-C) Smoking Status: Never smoker alcohol intake: never [...] was performed. Cardiac catheterization 10/14/2022: PROCEDURE(S) PERFORMED DC02-(46942)[facility]/COR CLINICAL PROFILE AND INDICATIONS Indications: Suspected CAD [...] multiple views using a 5 Fr. 4.0 Parachute catheter. Right Coronary Artery selective angiography was [...] exam, and echocardiograms as deemed appropriate. (4) SANTOS (dyspnea on exertion): Status: Acute Plan: Patient [...] View (Portable) Procedure Note: See Note; NOTES: [facility] Imaging Services [address] [place] [address] Chest 1 View (Portable) MR#: [id number] Acct: [id number] Name: ELDA VILLALOBOS Rep #: [id number] : 1955 F 67 From: Corbin rivera MD PCP: Dr. Polina Perrin DO Status: REG ER Study: Chest 1 View (Portable) Date of Exam: 10/13/22 Exam# [id number] Ordering Dr: Abraham Palomino MD STUDY: X-RAY [...] Abraham Palomino MD; Dr. Polina Perrin DO Furrier Apprentice: Signed Polina Perrin DO Work Phone: Start: 06-02-2022 End: 06-02-2022 Pulmonary Visit Report Procedure Note: See Note; NOTES: [facility] [place] [address] [place] [address] OFFICE VISIT Date of Service: 06/02/22 MR#: [id number] Acct: [id number] Name: ELDA VILLALOBOS Rep #: [id number] : 1955 Provider: FIFI Qureshi Age/Sex: 66/F Location: [facility] Status: Signed Assessment and Plan Assessment and [...] tab PO DAILY 06/12/21 [History Confirmed 06/02/22] [facility] Medical History Atypical chest pain Essential [...] 0933 <Electronically signed by Kayleigh Qureshi NP NURSE PRACTITIONER HOME ASSESSMENTS-C> Date Kayleigh Qureshi NP NURSE PRACTITIONER HOME ASSESSMENTS-C Kathleenigner Signature: Date (if applicable) CC: DO Polina Garcia DO Work Phone: Start: 01-22-2022 End: 01-23-2022 Thyroid Procedure Note: See Note; NOTES: [facility] Imaging Services [address] [place] [address] Thyroid MR#: [id number] Acct: [id number] Name: ELDA VILLALOBOS Rep #: [id number] : 1955 F 66 From: Rahat Machuca MD PCP: Dr. Polina Perrin DO Status: REG CLI Study: Thyroid Date of Exam: 01/22/22 Exam# [id number] Ordering Dr: Polina Perrin DO STUDY: THYROID [...] EDT , CC: Dr. Polina Perrin DO Furrier Apprentice: Signed Polina Perrin DO Work Phone: Start: 12-18-2021 End: 12-18-2021 Urgent Care Visit Report Comments: See Note; NOTES: [facility] [address] [place] [address] [address] [place] [id number] OFFICE VISIT Date of Service: 12/18/21 MR#: [id number] Acct: [id number] Name: ELDA VILLALOBOS Rep #: [id number] : 1955 Provider: LUPIS Zapien Age/Sex: 66/F Location: [facility] Status: Signed Intake Vital Signs 06/12/21 08:27 [...] RN on 12/18/21 14:27 Off Ur Spec Grannis 1.010 Last Edit by Laura Kurtz RN [...] 12-01-2021 Stress Report Comments: See Note; NOTES: [facility] [address] [place] [address] MR#: [id number] Acct: [id number] Name: NADIRAELDA M Rep #: [id number] : 1955 66 From: Berlin Melton MD [...] of 73%. This note was generated with [employer] software. It may contain incorrect words, spelling, and punctuation that were not noted in checking the note before signing. 12/01/211336 <Electronically signed by Berlin Melton MD> Date Berlin Melton MD CC: Dr. Polina Perrin, DO Date Dictated: 12/01/211332 Date Transcribed: 12/01/211332 Furrier Apprentice: PM Signed Polina Perrin DO Work Phone: Start: 12-01-2021 End: 12-01-2021 Echo Complete W/ Contrast Comments: See Note; NOTES: [facility] [place] [address] Echo Complete W/ Contrast 12/01/21 5611 MR#: [id number] Acct: [id number] Name: ELDA VILLALOBOS Rep #: [id number] : 1955 66 From: Berlin Melton MD Attending Dr: Dr. Polina Perrin, Status: R EG CLI Ordering Dr: Polina Perrin DO Date: 12/01/21 Location: [facility] Sex: F C Admitted: Reason For Study: [...] Date Dictated: 12/01/2130 Date Transcribed: 12/01/21 1035 Furrier Apprentice: Signed Polina Perrin DO Work Phone: Start: 07-24-2021 End: 07-24-2021 Thyroid Comments: See Note; NOTES: [facility] Imaging Services [address] [place] [address] Thyroid MR#: [id number] Acct: [id number] Name: ELDA VILLALOBOS Rep #: [id number] : 1955 F 65 From: Bret Patricia MD PCP: Dr. Polina Perrin DO Status: REG CLI Study: Thyroid Date of Exam: 07/24/21 Exam# [id number] Ordering Dr: Polina Perrin DO STUDY: THYROID [...] EST , CC: Dr. Polina Perrin DO Furrier Apprentice: Signed Polina Perrin DO Work Phone: Start: 06-12-2021 End: 06-12-2021 Knee 4 or More Views Comments: See Note; NOTES: [facility] [address] [place] [address] Knee 4 or More Views MR#: [id number] Acct: [id number] Name: ELDA VILLALOBOS Rep #: [id number] : 1955 F 65 From: Corbin rivera MD PCP: Dr. Polina Perrin DO Status: DEP AMB Study: Knee 4 or More Views Date of Exam: 06/12/21 Exam# [id number] Ordering Dr: Gentry Hernandez DO STUDY: X-RAY [...] Gentry Hernandez DO; Dr. Polina Perrin DO Furrier Apprentice: Signed Polina Perrin DO Work Phone: Start: 06-12-2021 End: 06-12-2021 Orthopedic Visit Report Comments: See Note; NOTES: [facility] [address] [place] [address] OFFICE VISIT Date of Service: 06/12/21 MR#: [id number] Acct: [id number] Name: ELDA VILLALOBOS Rep #: [id number] : 1955 Provider: Dr. Gentry oscar DO Age/Sex: 65/F Location: [facility] Status: Signed Intake Vital Signs 06/12/21 08:27 [...] tab PO DAILY 06/12/21 [History Confirmed 06/12/21] [facility] Medical History (Updated 06/12/21 @ 09:02 [...] first. Explained there is a program at [facility] called why weight. If she wants a [...] Pulmonary Visit Report Comments: See Note; NOTES: [facility] [place] [address] [place] [address] OFFICE VISIT Date of Service: 02/03/21 MR#: [id number] Acct: [id number] Name: ELDA VILLALOBOS Rep #: [id number] : 1955 Provider: Dr. Royal Thomason DO Age/Sex: 65/F Location: [facility] Status: Signed Assessment and Plan Assessment and [...] documenting clinical information. Follow Up: 1 Year ([facility]) HPI HPI Comments Details: The patient is [...] mg PO DAILY 09/23/20 [History Confirmed 02/03/21] [facility] Medical History (Updated 02/03/21 @ 11:02 [...] [facility] [place] [address] [place] [address] OFFICE VISIT Date of Service: 09/23/20 MR#: [id number] Acct: [id number] Name: ELDA VILLALOBOS Rep #: [id number] : 1955 Provider: FIFI Qureshi Age/Sex: 64/F Location: [facility] Status: Signed HPI <FIFI Dias NP - Last Filed: 09/23/20 09:55> HPI Comments Details: This patient presents to the office today to establish care of her known obstructive sleep apnea. She is ambulatory and currently on room air. 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 Unfortunately, he and she has not established with anyone else until this point. Last sleep study occurred at [facility] back in 2016. She is unsure [...] when sitting still. She currently has a home health cna. 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 She has never seen a biodiesel plant operations engineer. She has never been tested with regard [...] today's office visit. Intake <Kayleigh Qureshi NP, NURSE PRACTITIONER HOME ASSESSMENTS-C - Last Filed: 09/23/20 09:55> Vital Signs [...] Delivery Method room air Intake DME Vendor: [facility] <Kayleigh Qureshi NP, NURSE PRACTITIONER HOME ASSESSMENTS-C - Last Filed: 09/23/20 09:55> Medical History (Updated 09/23/20 @ 09:48 by Kayleigh Qureshi NP, NURSE PRACTITIONER HOME ASSESSMENTS-C) Atypical chest pain Essential hypertension History of [...] as per HPI Exam <Kayleigh Qureshi NP, NURSE PRACTITIONER HOME ASSESSMENTS-C - Last Filed: 09/23/20 09:55> Const Constitutional: [...] Z68.42 Assessment and Plan <Kayleigh Qureshi NP, NURSE PRACTITIONER HOME ASSESSMENTS-C - Last Filed: 09/23/20 09:55> Assessment and [...] 0955 <Electronically signed by Kayleigh Qureshi NP NURSE PRACTITIONER HOME ASSESSMENTS-C> Date Kayleigh Qureshi NP, NP-C Cosigner Signature: Date (if applicable) CC: DO Polina Garcia DO Work Phone: Start: 04-22-2020 End: 04-22-2020 CTA Chest W/WO Contrast Comments: See Note; NOTES: [facility] Imaging Services [address] [place] [address] CTA Chest W/WO Contrast MR#: [id number] Acct: [id number] Name: ELDA VILLALOBOS Rep #: [id number] : 1955 F 64 From: Damian Archuleta DO PCP: Dr. Polina Perrin DO Status: REG CLI Study: CTA Chest W/WO Contrast Date of Exam: 04/22/20 Exam# [id number] Ordering Dr: Polina Perrin DO STUDY: CTA [...] support , CC: Dr. Polina Perrin DO Furrier Apprentice: Signed Polina Perrin Work Phone: Start: 01-02-2020 End: 01-02-2020 Dexa Bone Density/Append Skel Comments: See Note; NOTES: [facility] Imaging Services [address] [place] [address] Dexa Bone Density/Append Skel MR#: [id number] Acct: [id number] Name: ELDA VILLALOBOS Rep #: [id number] : 1955 F 64 From: Corbin rivera MD PCP: Dr. Polina Perrin DO Status: REG CLI Study: Dexa Bone Density/Append Skel Date of Exam: Exam# [id number] Ordering Dr: Polina Perrin DO STUDY: DUAL ENERGY X-RAY ABSORPTIOMETRY / DXA REASON FOR EXAM: Female, 64 years old. 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 Polina Perrin DO Furrier Apprentice: Signed Polina Perrin Work Phone: Start: 01-02-2020 End: 01-11-2020 SCREEN MAMM (CAD) W/JOHN BILAT Comments: See Note; NOTES: [facility] Imaging Services [address] [place] [address] SCREEN MAMM (CAD) W/JOHN BILAT MR#: [id number] Acct: [id number] Name: ELDA VILLALOBOS Rep #: [id number] : 1955 F 64 From: Corbin rivera MD PCP: Dr. Polina Perrin, Status: REG CLI Study: SCREEN MAMM (CAD) W/JOHN BILAT Date of Exam: 0 01/02/20 Exam# [id number] Ordering Dr: Polina Perrin DO MAMMOGRAPHY - [...] delay biopsy of a clinically suspicious abnormality. [id number] Electronically Signed: Corbin Zelaya, at 10:24 EDT , Service support , CC: Dr. Polina Perrin DO Furrier Apprentice: Signed Polina Perrin Work Phone: Start: 11-15-2019 End: 11-19-2019 Carotid Duplex Ultrasound Comments: See Note; NOTES: [facility] [address] [place] [address] Carotid Duplex Ultrasound 11/15/19 1409 MR#: [id number] Acct: [id number] Name: ELDA VILLALOBOS Rep #: [id number] : 1955 64 From: Vlad Parekh MD Attending Dr: Dr. Polina Perrin, Status: R EG CLI Ordering Dr: Polina Perrin DO Date: 11/15/19 Location: [facility] Sex: F C Admitted: Reason For Study: [...] the left vertebral artery. Procedure Carotid Duplex 01214. The exam was diagnostic. Exam performed in department. Interpretation Summary Mild (<50%) stenosis right extracranial internal carotid. Mild (<50%) stenosis left extracranial internal carotid. Flow within the vertebral arteries is antegrade bilaterally. Elevated velocities in the internal carotid arteries appear to be related to vessel tortuosity rather than an occlusive process. Clinical correlation is advised. _ Ordering Physician: Polina Perrin Performed By: Joshua oLoney RVRajeev 11/19/19 0807 Date Vlad Parekh MD CC: Dr. Polina Perrin, Date Dictated: 11/15/19 1409 Date Transcribed: 11/19/19 0807 Furrier Apprentice: Signed Polina Perrin Work Phone: Start: 11-15-2019 End: 11-16-2019 Echo Complete W/ Contrast Comments: See Note; NOTES: [facility] [address] [place] [address] Echo Complete W/ Contrast 11/15/19 1315 MR#: [id number] Acct: [id number] Name: ELDA VILLALOBOS [place] Rep #: [id number] : 1955 64 From: Catia Franklin MD [...] Dictated: 11/15/19 1315 Date Transcribed: 11/16/19 1523 Furrier Apprentice: Signed Polina Perrin Work Phone: Start: 11-12-2019 End: 11-12-2019 Brain/Head without Contrast Comments: See Note; NOTES: [facility] Imaging Services [address] [place] [address] Brain/Head without Contrast MR#: [id number] Acct: [id number] Name: ELDA VILLALOBOS Rep #: [id number] : 1955 F 64 From: Bret Maldonado PCP: Dr. Polina Perrin, DO Status: REG CLI Study: Brain/Head without Contrast Date of Exam: 10/28 10/16 Exam# [id number] Ordering Dr: Polina Perrin DO STUDY: CT [...] support , CC: Dr. Polina Perrin DO Furrier Apprentice: Signed Polina Perrin Work Phone: Start: 10-29-2019 End: 10-29-2019 Virtual Office Visit Comments: See Note; NOTES: [facility] [place] [address] OFFICE VISIT Date of Service: 10/29/19 MR#: [id number] Acct: [id number] Patient: ELDA VILLALOBOS Rep #: [id number] : 1955 Provider: Dr. Eric mcdermott MD Age/Sex: 64/F Location: [facility] Status: Signed Intake Vital Signs 10/29/19 Height 5 ft 10/29/19 Weight: 251 lb 10/29/19 BMI 49.0 10/29/19 BP 116/81 H 10/29/19 Blood Pressure Location Lt brachial 10/29/19 Position Sitting 10/29/19 Respiration 20 H 10/29/19 Pulse 70 10/29/19 Pulse Source Monitor 10/29/19 Comment Pt did vitals on home bp monitor Intake Visit Reasons: PHONE 6 M FU Accounting Software Specialist Required: No Is patient in pain?: No Allergies amoxicillin Allergy (Verified 04/16/19 09:53) Rash losartan Adverse Reaction (Intermediate, Verified 10/29/19 09:46) Hypotension and dizzy even on 12.5 mg Medications Folic Acid 2 tab PO DAILY 12/29/18 [History Confirmed 10/29/19] Hydroxychloroquine [Plaquenil] 1 tab PO BID 12/29/18 [History Confirmed 10/29/19] Methotrexate Sodium [Methotrexate] 8 tab PO QWEEK 12/29/18 [History Confirmed 10/29/19] Thyroid [[place] Thyroid] 1 tab PO DAILY 12/29/18 [History [...] underwent a non-walking nuclear stress test at [facility] on 12/30/2018 which was negative for inducible ischemia. In addition she underwent left heart catheterization with ventriculography on 10/03/[address] [facility] which showed normal coronary arteries, no [...] deferred d/t telephone visit during COVID-19 Pandemic [facility] Musculoskeletal: No muscle weakness Details: Details:: Exam [...] Office Visit Report Comments: See Note; NOTES: [facility] [facility] [place] [address] OFFICE VISIT Date of Service: 05/01/19 MR#: [id number] Acct: [id number] Patient: ELDA VILLALOBOS Rep #: [id number] : 1955 Provider: Eric Huerta MD Age/Sex: 63/F [place] [facility] [place]: Signed Intake Vital Signs05/01/19 Body Mass [...] Cardiology Visit Report Comments: See Note; NOTES: [facility] [address] [place] [address]. [address] [place] [address] OFFICE VISIT Date of Service: 04/17/19 MR#: [id number] Acct: [id number] Name: ELDA VILLALOBOS Rep #: [id number] : 1955 Provider: Eric Huerta MD Age/Sex: 63/F Location: [facility] [place] Status: Signed HPI HPI History of Present [...] underwent a non-walking nuclear stress test at [facility] on 12/30/2018 which was negative for inducible ischemia. In addition she underwent left heart catheterization with ventriculography on 10/03/[address] [facility] which showed normal coronary arteries, no [...] PO QWEEK 12/29/18 [History Confirmed 04/17/19] Thyroid [[place] Thyroid] 1 tab PO DAILY 12/29/18 [History Confirmed 04/17/19] furosemide 40 mg tablet 40 mg PO .COMPLEX tab 04/17/19 [History Confirmed 04/17/19] losartan 25 mg tablet 25 mg PO DAILY #30 tab 04/17/19 [Rx Confirmed 04/17/19] [facility]LY [facility] Medical History (Updated 04/16/19 @ 10:10 [...] Pain: No (None since December: was in [facility], found out had UTI) Palpitations: Yes (Occasionally [...] Perrin DO Polina Perrin back surgery in [facility] Dr.Shochurd james orthopedic 03/14/19 Katherine Gravius back surgery in [facility] Dr.Shochurd james orthopedic 03/14/19 Katherine Gravius back surgery in [facility] Dr.Shochurd james orthopedic 03/14/19 Angi Cross back surgery in [facility] Dr.Shochurd james orthopedic 03/14/19 Katherine Gravius back surgery in [facility] Dr.Shochurd james orthopedic 03/14/19 Angi Cross back surgery in [facility] Dr.Shochurd james orthopedic 03/14/19 Katherine Gravius back surgery in [facility] Dr.Shochurd james orthopedic 03/14/19 Katherine Gravius back surgery in [facility] Dr.Shochurd james orthopedic 03/14/19 Jenna Slarb CARPET SEWER back surgery in [facility] Dr.Shochurd james orthopedic 03/14/19 Katherine Gravius PATIENT INFORMATION COORDINATOR back surgery in [facility] Dr.Shochurd james orthopedic 03/14/19 Kell A Fast DO Work Phone: back surgery in [facility] Dr.Shochurd james orthopedic 03/14/19 Katherine Gravius PATIENT INFORMATION COORDINATOR back surgery in [facility] Dr.Shochurd james [facility]opedic 03/14/19 Jenna Slarb CARPET SEWER back surgery in [facility] Dr.Shochurd james orthopedic 03/14/19 Katherine Gravius PATIENT INFORMATION COORDINATOR back surgery in [facility] Dr.Shochurd james orthopedic 03/14/19 Katherine Gravius PATIENT INFORMATION COORDINATOR back surgery in [facility] Dr.Shochurd james orthopedic 03/14/19 Katherine Gravius PATIENT INFORMATION COORDINATOR back surgery in [facility] Dr.Shochurd james orthopedic 03/14/19 Fabrice Joo CARPET SEWER back surgery in [facility] Dr.Shochurd james orthopedic 03/14/19 Michelle De Paz MA back surgery in [facility] Dr.Shochurd james orthopedic 03/14/19 Fabrice Joo CARPET SEWER Hysterectomy Hysterectomy Floridalma L Long Plan of Treatment Date Care Activity Detail Author Start: 02-25-2026 Diabetes Screening Diabetes Screening [facility] Start: 09-17-2025 DIABETES SCREEN DIABETES SCREEN [facility] Start: 12-17-2023 DIABETES SCREEN DIABETES SCREEN [facility] Start: 02-16-2023 Procedure Education Eprescribed prescriptions (G1877) [facility] Work Phone: Start: 02-16-2023 Provider Instructions for Treatment [facility] Work Phone: Start: 02-16-2023 Assay of thyroid stimulating hormone tsh TSH (91166) [facility]; [facility] Work Phone: Start: 02-16-2023 Urnls dip stick/tablet reagent auto microscopy URINALYSIS, W/ MICRO ([id number]) [facility]; [facility] Work Phone: Start: 02-16-2023 Urine albumin quantitative MICROALBUMIN: CREATININE RATIO (80667) AND (52461) [facility]; [facility] Work Phone: Start: 02-16-2023 Comprehensive metabolic panel METABOLIC PANEL, COMPREHENSIVE (35409) [facility]; [facility] Work Phone: Start: 02-16-2023 Lipid panel LIPID PANEL (84677) [facility]; [facility] Work Phone: Start: 02-16-2023 Blood count complete auto&auto difrntl wbc CBC W/AUTO DIFF WBC (58151) [facility]; [facility] Work Phone: Start: 01-28-2023 Influenza vaccination [facility] Start: 12-22-2022 End: 09-23-2023 25-hydroxyvitamin D3 [Mass/volume] in Serum or Plasma VITAMIN D 25 HYDROXY Lab Routine Vitamin D deficiency Expected: 12/22/2022 (Approximate), Expires: 09/23/2023 [facility] Work Phone: Payers Date Payer Category Payer Medicare HU[employer]NA MEDICARE HU[employer]NA MEDICARE PPO [id number] 2021-Present [phone] [address] [place] [address] PPO [id number] 2021 Medicare HUMANA MEDICARE HU[employer]NA MEDICARE PPO [id number] 2021-Present [phone] [address] [place] [id number] PPO [id number] 2021 Private Health Insurance [id number] 2020 Medicaid [id number] 2020 Medicare [id number] 2020 Unknown [id number] 1955 Unknown [id number] 1955 Unknown [id number] Unknown Social History Date Type Detail [...] Type Note Facility 06-09-2023 Note HNO ID: [id number] Author: JAN LEE MD Service: ? Author Type: Physician Type: Progress Notes Filed: 06/09/2023 11:54 Note Text: [facility] [place] [facility]riti Haley Department of Cardiovascular Medicine SECTION [...] index 45.0-49.9, adult (HCC) Chronic rheumatic arthritis ([facility]) Cough Dietary counseling Encounter for therapeutic drug [...] or lesions a (more content not included)... [facility] 02-25-2023 Note HNO ID: [id number] Author: Indra Metcalf MD Service: ? Author [...] TKR, see primary care provider/pain clinic for terminal clerk pain recommendations, see cardiology/on lasix, elevate legs [...] TKR, see primary care provider/pain clinic for longterm pain recommendations, see cardiology/on lasix, elevate legs [...] like weightgain. Recently diagnosed with UTI, will hot die picker antibiotics soon. Not drinking much water. Used to drink cranberry juice. High stress, daughter due for surgery for endometriosis. Chronic R knee, due for TKR in future. Has tried biofreeze. Due for eye exam. Had to take prednisone for joint pain flares every other month. No COVID vaccines. Chronic pain in back/neck/hands/shoulders. Reports pain /10. Minimal Am stiffness. 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 Feels safe at home. Has enough food, supplies and medications. Overall mildly uncomfortable but happy with rheum care. No falls/fx/trauma/illness/oral sores/rash/hairloss/jaw pain/dysphagia/epistaxis/hemopt ysis since last visit. No adverse effects with meds. No other complaints. Patient denies fever, chills, cp, dyspnea, nausea, vomiting, night sweats, scalp tenderness, visual changes, kerr (more content not included)... [facility] 02-25-2023 History of Presen t illness [...] TKR, see primary care provider/pain clinic for longterm pain recommendations, see cardiology/on lasix, elevate legs [...] TKR, see primary care provider/pain clinic for longterm pain recommendations, see cardiology/on lasix, elevate legs [...] like weightgain. Recently diagnosed with UTI, will hot die picker antibiotics soon. Not drinking much water. Used to drink cranberry juice. High stress, daughter due for surgery for endometriosis. Chronic R knee, due for TKR in future. Has tried biofreeze. Due for eye exam. Had to take prednisone for joint pain flares every other month. No COVID vaccines. Chronic pain in back/neck/hands/shoulders. Reports pain 6/10. Minimal Am stiffness. 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 History of UTI, will hot die picker antibiotics soon. Not drinking much water. Used [...] TKR, see primary care provider/pain clinic for terminal clerk pain recommendations, elevate legs when sitting/wear compression [...] 0, pain 40-50%;11/17/21 HEMAL 0, pain 60%;12/16/20 HEMAL 0 pain [...] have any signs/symptoms of infection. Please see ruby on rails web developer every 6-12months while on Hydroxychloroquine. Recommend goal: [...] toes, sit-ups, using row machine see ortho/cardiology terminal clerk pain recommendations per primary care provider/pain & [...] which included preparing to see the patient, [id number] patient care, completing clinical documentation, obtaining and/or [...] Polina Perrin DO documented in this encounter [facility] 02-24-2023 Instructions Indra Metcalf MD - 02/24/2023 [...] have any signs/symptoms of infection. Please see ruby on rails web developer every 6-12months while on Hydroxychloroquine. Recommend goal: [...] toes, sit-ups, using row machine see ortho/cardiology terminal clerk pain recommendations per primary care provider/pain & [...] usual activities immediately. documented in this encounter [facility] 09-27-2022 Miscellaneous Notes Notify patient medication sent [...] Floridalma Guillen RN documented in this encounter [facility] 09-22-2022 Miscellaneous Notes Message provided to pt. Pt states understanding. Called and left message for patient to call back regarding message below from . Please Call patient to review results/released to My Chart if tests completed at [facility]: Mildly high normal vitamin D. Take [...] (13), crp 0.7; documented in this encounter [facility] 09-20-2022 Miscellaneous Notes Pt identified by name and Pt given message below Stated understanding Pt cancelled 4-25 apt and asking to r/s Call transferred to [facility] scheduling to assist with appt scheduling Left message for patient to call office regarding below. Please Call patient to review results/released to My Chart if tests completed at [facility]: Mildly low normal potassium- increase potassium [...] 0.7;pending vitamin D; documented in this encounter [facility] 11-17-2021 History of Presen t illness Narrative [...] TKR, see primary care provider/pain clinic for terminal clerk pain recommendations, see cardiology/on lasix, elevate legs [...] like weightgain. Recently diagnosed with UTI, will hot die picker antibiotics soon. Not drinking much water. Used to drink cranberry juice. High stress, daughter due for surgery for endometriosis. Chronic R knee, due for TKR in future. Has tried biofreeze. Due for eye exam. Had to take prednisone for joint pain flares every other month. No COVID vaccines. Chronic pain in back/neck/hands/shoulders. Reports pain 6/10. Minimal Am stiffness. 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 Villalobos is a 66 year old [facility] female with PMH htn, thyroid disease on [...] like weightgain. Recently diagnosed with UTI, will hot die picker antibiotics soon. Not drinking much water. Used [...] TKR, see primary care provider/pain clinic for longterm pain recommendations, see cardiology/on lasix, elevate legs [...] have any signs/symptoms of infection. Please see ruby on rails web developer every 6-12months while on Hydroxychloroquine. Recommend goal: [...] toes, sit-ups, using row machine see ortho/cardiology terminal clerk pain recommendations per primary care provider/pain & [...] which included preparing to see the patient, [id number] patient care, completing clinical documentation, obtaining and/or [...] Polina Perrin DO documented in this encounter [facility] 11-17-2021 Instructions Indra Metcalf MD - 11/17/2021 [...] have any signs/symptoms of infection. Please see ruby on rails web developer every 6-12months while on Hydroxychloroquine. Recommend goal: [...] toes, sit-ups, using row machine see ortho/cardiology terminal clerk pain recommendations per primary care provider/pain & [...] usual activities immediately. documented in this encounter [facility] 10-24-2021 Miscellaneous Notes -Called and left message [...] Visit Type Date Time Department [facility] EST [facility] MEDICAL EXT 11/17/2021 7:00 AM [facility] REJ Last Ophthalmology Check for Plaquenil [...] patient to advise. Ok to leave message. [phone] LMTCB. Mailed out lab orders. Please Call [...] 13, crp 0.4; documented in this encounter [facility] 10-24-2021 Miscellaneous Notes Duplicate methotrexate 2.5 mg tablet 40 tablet 5 10/23/2021 Sig: Take 8 tablets by mouth with food once a week. No alcohol. Hold if on antibiotics or ill. Hold 1-2weeks after vaccines. Sent to pharmacy as: methotrexate 2.5 mg tablet Class: Normal Order: [id number] E-Prescribing Status: Receipt confirmed by pharmacy (10/23/2021 [...] 365 Days Visit Type Date Time Department [facility] MEDICAL EXT 11/17/2021 7:00 AM [facility] REJ Last Ophthalmology Check for Plaquenil (Hydroxychloroquine) [...] Vitamin D deficiency documented in this encounter [facility] 10-20-2021 Miscellaneous Notes Confirmation received. Pt aware orders were faxed. Fax number placed on orders for them to have results faxed to us once completed. Also fax number given to patient too. Carolyne Woods MA Faxed. Waiting on confirmation. Carolyne Woods MA Patient returning call. The fax number to [facility] is: [phone]. Patient would like to have labs done tomorrow bottom finisher, please call her with confirmation of the [...] Carolyne Woods MA documented in this encounter [facility] Inflammatory [facility] Unspecified inflammatory polyarthropathy [facility] Inflammatory arthritis Unspecified inflammatory polyarthropathy [facility] Diagnosis Inflammatory arthritis- Primary Unspecified [...] vitamin D deficiency [facility] Diagnosis Inflammatory arthritis- Primary Unspecified inflammatory polyarthropathy Elevated LFTs Other abnormal blood chemistry Anemia of chronic disease Anemia of other chronic disease Elevated sed rate Elevated sedimentation rate Elevated C-reactive protein (CRP) Vitamin D deficiency Unspecified vitamin D deficiency [facility] Diagnosis Postmenopausal osteoporosis of multiple sites- Primary Vitamin D deficiency Unspecified vitamin D deficiency [facility] Diagnosis Inflammatory arthritis Unspecified inflammatory polyarthropathy [facility] Diagnosis Rheumatoid arthritis of multiple sites [...] hip pain, bilateral [facility] Name Dates Details Patient Instructions Indication:Non-smoker Start:04-Sep-2020 Instruction Type:Provider Instructions for Treatment How to Access Health Informa tion Online using Patient Portal and [employer] Apps Indication:Non-smoker Start:04-Sep-2020 Instruction Type:Patient Education How [...] tion Online using Patient Portal and 3rd Republican Apps Indication:BMI 45.0-49.9, adult Start:25-May-2021 Instruction Type:Patient Education Patient Instructions Indication:Obesity, morbid (more than 100 lbs over ideal weight or BMI > 40) Start:18-Mar-2021 Instruction Type:Provider Instructions for Treatment How to Access Health Informa tion Online using Patient Portal and 3rd [employer] Apps Indication:Obesity, morbid (more than 100 lbs over ideal weight or BMI > 40) Start:18-Mar-2021 Instruction Type:Patient Education Patient Instructions Indication:Non-smoker Start:25-Feb-2021 Instruction Type:Provider Instructions for Treatment How to Access Health Informa tion Online using Patient Portal and [employer] Apps Indication:Non-smoker Start:25-Feb-2021 Instruction Type:Patient Education obesity counseling Indication:LUIZA (obstructive sleep apnea) Start:12-Dec-2020 Instruction Type:Provider Instructions for Treatment Patient Instructions Indication:BMI 50.0-59.9, adult Start:12-Dec-2020 Instruction Type:Provider Instructions for Treatment How to Access Health Informa tion Online using Patient Portal and 3rd Republican Apps Indication:BMI 50.0-59.9, adult Start:12-Dec-2020 Instruction Type:Patient Education Patient Instructions Indication:Non-smoker Start:04-Sep-2020 Instruction Type:Provider Instructions for Treatment How to Access Health Informa tion Online using Patient Portal and 3rd Republican Apps Indication:Non-smoker Start:04-Sep-2020 Instruction Type:Patient Education How [...] tion Online using Patient Portal and 3[employer] Republican Apps Indication:BMI 45.0-49.9, adult Start:25-May-2021 Instruction Type:Patient Education Patient Instructions Indication:Obesity, morbid (more than 100 lbs over ideal weight or BMI > 40) Start:18-Mar-2021 Instruction Type:Provider Instructions for Treatment How to Access Health Informa tion Online using Patient Portal and [employer] Apps Indication:Obesity, morbid (more than 100 lbs over ideal weight or BMI > 40) Start:18-Mar-2021 Instruction Type:Patient Education Patient Instructions Indication:Non-smoker Start:25-Feb-2021 Instruction Type:Provider Instructions for Treatment How to Access Health Informa tion Online using Patient Portal and 3rd Republican Apps Indication:Non-smoker Start:25-Feb-2021 Instruction Type:Patient Education obesity counseling Indication:LUIZA (obstructive sleep apnea) Start:12-Dec-2020 Instruction Type:Provider Instructions for Treatment Patient Instructions Indication:BMI 50.0-59.9, adult Start:12-Dec-2020 Instruction Type:Provider Instructions for Treatment How to Access Health Informa tion Online using Patient Portal and 3rd Republican Apps Indication:BMI 50.0-59.9, adult Start:12-Dec-2020 Instruction Type:Patient Education Patient Instructions Indication:Non-smoker Start:04-Sep-2020 Instruction Type:Provider Instructions for Treatment How to Access Health Informa tion Online using Patient Portal and 3rd [employer] Apps Indication:Non-smoker Start:04-Sep-2020 Instruction Type:Patient Education How [...] Informa tion Online using Patient Portal and [employer] Apps Indication:Non-smoker Start:13-Jul-2021 Instruction Type:Patient Education Patient Instructions Indication:BMI 45.0-49.9, adult Start:25-May-2021 Instruction Type:Provider Instructions for Treatment How to Access Health Informa tion Online using Patient Portal and 3rd [employer] Apps Indication:BMI 45.0-49.9, adult Start:25-May-2021 Instruction Type:Patient Education Patient Instructions Indication:Obesity, morbid (more than 100 lbs over ideal weight or BMI > 40) Start:18-Mar-2021 Instruction Type:Provider Instructions for Treatment How to Access Health Informa tion Online using Patient Portal and 3[employer] Apps Indication:Obesity, morbid (more than 100 lbs over ideal weight or BMI > 40) Start:18-Mar-2021 Instruction Type:Patient Education Patient Instructions Indication:Non-smoker Start:25-Feb-2021 Instruction Type:Provider Instructions for Treatment How to Access Health Informa tion Online using Patient Portal and 3[employer] Apps Indication:Non-smoker Start:25-Feb-2021 Instruction Type:Patient Education obesity counseling Indication:LUIZA (obstructive sleep apnea) Start:12-Dec-2020 Instruction Type:Provider Instructions for Treatment Patient Instructions Indication:BMI 50.0-59.9, adult Start:12-Dec-2020 Instruction Type:Provider Instructions for Treatment How to Access Health Informa tion Online using Patient Portal and 3[employer] Apps Indication:BMI 50.0-59.9, adult Start:12-Dec-2020 Instruction Type:Patient Education Patient Instructions Indication:Non-smoker Start:04-Sep-2020 Instruction Type:Provider Instructions for Treatment How to Access Health Informa tion Online using Patient Portal and 3rd [employer] Apps Indication:Non-smoker Start:04-Sep-2020 Instruction Type:Patient Education How [...] tion Online using Patient Portal and 3[employer] Apps Indication:Non-smoker Start:13-Jul-2021 Instruction Type:Patient Education Patient Instructions Indication:BMI 45.0-49.9, adult Start:25-May-2021 Instruction Type:Provider Instructions for Treatment How to Access Health Informa tion Online using Patient Portal and 3[employer] Apps Indication:BMI 45.0-49.9, adult Start:25-May-2021 Instruction Type:Patient Education Patient Instructions Indication:Obesity, morbid (more than 100 lbs over ideal weight or BMI > 40) Start:18-Mar-2021 Instruction Type:Provider Instructions for Treatment How to Access Health Informa tion Online using Patient Portal and 3[employer] Apps Indication:Obesity, morbid (more than 100 lbs over ideal weight or BMI > 40) Start:18-Mar-2021 Instruction Type:Patient Education Patient Instructions Indication:Non-smoker Start:25-Feb-2021 Instruction Type:Provider Instructions for Treatment How to Access Health Informa tion Online using Patient Portal and 3[employer] Apps Indication:Non-smoker Start:25-Feb-2021 Instruction Type:Patient Education obesity counseling Indication:LUIZA (obstructive sleep apnea) Start:12-Dec-2020 Instruction Type:Provider Instructions for Treatment Patient Instructions Indication:BMI 50.0-59.9, adult Start:12-Dec-2020 Instruction Type:Provider Instructions for Treatment How to Access Health Informa tion Online using Patient Portal and 3[employer] Apps Indication:BMI 50.0-59.9, adult Start:12-Dec-2020 Instruction Type:Patient Education Patient Instructions Indication:Non-smoker Start:04-Sep-2020 Instruction Type:Provider Instructions for Treatment How to Access Health Informa tion Online using Patient Portal and [employer] Apps Indication:Non-smoker Start:04-Sep-2020 Instruction Type:Patient Education How [...] tion Online using Patient Portal and [employer] Apps Indication:Non-smoker Start:13-Jul-2021 Instruction Type:Patient Education Patient Instructions Indication:BMI 45.0-49.9, adult Start:25-May-2021 Instruction Type:Provider Instructions for Treatment How to Access Health Informa tion Online using Patient Portal and [employer] Apps Indication:BMI 45.0-49.9, adult Start:25-May-2021 Instruction Type:Patient Education Patient Instructions Indication:Obesity, morbid (more than 100 lbs over ideal weight or BMI > 40) Start:18-Mar-2021 Instruction Type:Provider Instructions for Treatment How to Access Health Informa tion Online using Patient Portal and [employer] Apps Indication:Obesity, morbid (more than 100 lbs over ideal weight or BMI > 40) Start:18-Mar-2021 Instruction Type:Patient Education Patient Instructions Indication:Non-smoker Start:25-Feb-2021 Instruction Type:Provider Instructions for Treatment How to Access Health Informa tion Online using Patient Portal and [employer] Apps Indication:Non-smoker Start:25-Feb-2021 Instruction Type:Patient Education obesity counseling Indication:LUIZA (obstructive sleep apnea) Start:12-Dec-2020 Instruction Type:Provider Instructions for Treatment Patient Instructions Indication:BMI 50.0-59.9, adult Start:12-Dec-2020 Instruction Type:Provider Instructions for Treatment How to Access Health Informa tion Online using Patient Portal and [employer] Apps Indication:BMI 50.0-59.9, adult Start:12-Dec-2020 Instruction Type:Patient Education Patient Instructions Indication:Non-smoker Start:04-Sep-2020 Instruction Type:Provider Instructions for Treatment How to Access Health Informa tion Online using Patient Portal and [employer] Apps Indication:Non-smoker Start:04-Sep-2020 Instruction Type:Patient Education How [...] tion Online using Patient Portal and [employer] Apps Indication:BMI 45.0-49.9, adult Start:29-Jul-2021 Instruction Type:Patient Education Patient Instructions Indication:Hypothyroid Start:19-Jul-2021 Instruction Type:Provider Instructions for Treatment Patient Instructions Indication:Non-smoker Start:13-Jul-2021 Instruction Type:Provider Instructions for Treatment How to Access Health Informa tion Online using Patient Portal and [employer] Apps Indication:Non-smoker Start:13-Jul-2021 Instruction Type:Patient Education Patient Instructions Indication:BMI 45.0-49.9, adult Start:25-May-2021 Instruction Type:Provider Instructions for Treatment How to Access Health Informa tion Online using Patient Portal and [employer] Apps Indication:BMI 45.0-49.9, adult Start:25-May-2021 Instruction Type:Patient Education Patient Instructions Indication:Obesity, morbid (more than 100 lbs over ideal weight or BMI > 40) Start:18-Mar-2021 Instruction Type:Provider Instructions for Treatment How to Access Health Informa tion Online using Patient Portal and [employer] Apps Indication:Obesity, morbid (more than 100 lbs over ideal weight or BMI > 40) Start:18-Mar-2021 Instruction Type:Patient Education Patient Instructions Indication:Non-smoker Start:25-Feb-2021 Instruction Type:Provider Instructions for Treatment How to Access Health Informa tion Online using Patient Portal and [employer] Apps Indication:Non-smoker Start:25-Feb-2021 Instruction Type:Patient Education obesity counseling Indication:LUIZA (obstructive sleep apnea) Start:12-Dec-2020 Instruction Type:Provider Instructions for Treatment Patient Instructions Indication:BMI 50.0-59.9, adult Start:12-Dec-2020 Instruction Type:Provider Instructions for Treatment How to Access Health Informa tion Online using Patient Portal and [employer] Apps Indication:BMI 50.0-59.9, adult Start:12-Dec-2020 Instruction Type:Patient Education Patient Instructions Indication:Non-smoker Start:04-Sep-2020 Instruction Type:Provider Instructions for Treatment How to Access Health Informa tion Online using Patient Portal and [employer] Apps Indication:Non-smoker Start:04-Sep-2020 Instruction Type:Patient Education How [...] tion Online using Patient Portal and [employer] Apps Indication:Non-smoker Start:21-Aug-2021 Instruction Type:Patient Education Patient Instructions Indication:BMI 45.0-49.9, adult Start:29-Jul-2021 Instruction Type:Provider Instructions for Treatment How to Access Health Informa tion Online using Patient Portal and [employer] Apps Indication:BMI 45.0-49.9, adult Start:29-Jul-2021 Instruction Type:Patient Education Patient Instructions Indication:Hypothyroid Start:19-Jul-2021 Instruction Type:Provider Instructions for Treatment Patient Instructions Indication:Non-smoker Start:13-Jul-2021 Instruction Type:Provider Instructions for Treatment How to Access Health Informa tion Online using Patient Portal and [employer] Apps Indication:Non-smoker Start:13-Jul-2021 Instruction Type:Patient Education Patient Instructions Indication:BMI 45.0-49.9, adult Start:25-May-2021 Instruction Type:Provider Instructions for Treatment How to Access Health Informa tion Online using Patient Portal and [employer] Apps Indication:BMI 45.0-49.9, adult Start:25-May-2021 Instruction Type:Patient Education Patient Instructions Indication:Obesity, morbid (more than 100 lbs over ideal weight or BMI > 40) Start:18-Mar-2021 Instruction Type:Provider Instructions for Treatment How to Access Health Informa tion Online using Patient Portal and [employer] Apps Indication:Obesity, morbid (more than 100 lbs over ideal weight or BMI > 40) Start:18-Mar-2021 Instruction Type:Patient Education Patient Instructions Indication:Non-smoker Start:25-Feb-2021 Instruction Type:Provider Instructions for Treatment How to Access Health Informa tion Online using Patient Portal and [employer] Apps Indication:Non-smoker Start:25-Feb-2021 Instruction Type:Patient Education obesity counseling Indication:LUIZA (obstructive sleep apnea) Start:12-Dec-2020 Instruction Type:Provider Instructions for Treatment Patient Instructions Indication:BMI 50.0-59.9, adult Start:12-Dec-2020 Instruction Type:Provider Instructions for Treatment How to Access Health Informa tion Online using Patient Portal and [employer] Apps Indication:BMI 50.0-59.9, adult Start:12-Dec-2020 Instruction Type:Patient Education Patient Instructions Indication:Non-smoker Start:04-Sep-2020 Instruction Type:Provider Instructions for Treatment How to Access Health Informa tion Online using Patient Portal and [employer] Apps Indication:Non-smoker Start:04-Sep-2020 Instruction Type:Patient Education How [...] tion Online using Patient Portal and [employer] Apps Indication:Non-smoker Start:12-Oct-2021 Instruction Type:Patient Education Patient Instructions Indication:Non-smoker Start:21-Aug-2021 Instruction Type:Provider Instructions for Treatment How to Access Health Informa tion Online using Patient Portal and [employer] Apps Indication:Non-smoker Start:21-Aug-2021 Instruction Type:Patient Education Patient Instructions Indication:BMI 45.0-49.9, adult Start:29-Jul-2021 Instruction Type:Provider Instructions for Treatment How to Access Health Informa tion Online using Patient Portal and [employer] Apps Indication:BMI 45.0-49.9, adult Start:29-Jul-2021 Instruction Type:Patient Education Patient Instructions Indication:Hypothyroid Start:19-Jul-2021 Instruction Type:Provider Instructions for Treatment Patient Instructions Indication:Non-smoker Start:13-Jul-2021 Instruction Type:Provider Instructions for Treatment How to Access Health Informa tion Online using Patient Portal and [employer] Apps Indication:Non-smoker Start:13-Jul-2021 Instruction Type:Patient Education Patient Instructions Indication:BMI 45.0-49.9, adult Start:25-May-2021 Instruction Type:Provider Instructions for Treatment How to Access Health Informa tion Online using Patient Portal and [employer] Apps Indication:BMI 45.0-49.9, adult Start:25-May-2021 Instruction Type:Patient Education Patient Instructions Indication:Obesity, morbid (more than 100 lbs over ideal weight or BMI > 40) Start:18-Mar-2021 Instruction Type:Provider Instructions for Treatment How to Access Health Informa tion Online using Patient Portal and [employer] Apps Indication:Obesity, morbid (more than 100 lbs over ideal weight or BMI > 40) Start:18-Mar-2021 Instruction Type:Patient Education Patient Instructions Indication:Non-smoker Start:25-Feb-2021 Instruction Type:Provider Instructions for Treatment How to Access Health Informa tion Online using Patient Portal and [employer] Apps Indication:Non-smoker Start:25-Feb-2021 Instruction Type:Patient Education obesity counseling Indication:LUIZA (obstructive sleep apnea) Start:12-Dec-2020 Instruction Type:Provider Instructions for Treatment Patient Instructions Indication:BMI 50.0-59.9, adult Start:12-Dec-2020 Instruction Type:Provider Instructions for Treatment How to Access Health Informa tion Online using Patient Portal and [employer] Apps Indication:BMI 50.0-59.9, adult Start:12-Dec-2020 Instruction Type:Patient Education Patient Instructions Indication:Non-smoker Start:04-Sep-2020 Instruction Type:Provider Instructions for Treatment How to Access Health Informa tion Online using Patient Portal and [email or web address] Apps Indication:Non-smoker Start:04-Sep-2020 Instruction Type:Patient Education How [...] tion Online using Patient Portal and [employer] Apps Indication:Non-smoker Start:12-Oct-2021 Instruction Type:Patient Education Patient Instructions Indication:Non-smoker Start:21-Aug-2021 Instruction Type:Provider Instructions for Treatment How to Access Health Informa tion Online using Patient Portal and [employer] Apps Indication:Non-smoker Start:21-Aug-2021 Instruction Type:Patient Education Patient Instructions Indication:BMI 45.0-49.9, adult Start:29-Jul-2021 Instruction Type:Provider Instructions for Treatment How to Access Health Informa tion Online using Patient Portal and [employer] Apps Indication:BMI 45.0-49.9, adult Start:29-Jul-2021 Instruction Type:Patient Education Patient Instructions Indication:Hypothyroid Start:19-Jul-2021 Instruction Type:Provider Instructions for Treatment Patient Instructions Indication:Non-smoker Start:13-Jul-2021 Instruction Type:Provider Instructions for Treatment How to Access Health Informa tion Online using Patient Portal and [employer] Apps Indication:Non-smoker Start:13-Jul-2021 Instruction Type:Patient Education Patient Instructions Indication:BMI 45.0-49.9, adult Start:25-May-2021 Instruction Type:Provider Instructions for Treatment How to Access Health Informa tion Online using Patient Portal and [employer] Apps Indication:BMI 45.0-49.9, adult Start:25-May-2021 Instruction Type:Patient Education Patient Instructions Indication:Obesity, morbid (more than 100 lbs over ideal weight or BMI > 40) Start:18-Mar-2021 Instruction Type:Provider Instructions for Treatment How to Access Health Informa tion Online using Patient Portal and [employer] Apps Indication:Obesity, morbid (more than 100 lbs over ideal weight or BMI > 40) Start:18-Mar-2021 Instruction Type:Patient Education Patient Instructions Indication:Non-smoker Start:25-Feb-2021 Instruction Type:Provider Instructions for Treatment How to Access Health Informa tion Online using Patient Portal and [employer] Apps Indication:Non-smoker Start:25-Feb-2021 Instruction Type:Patient Education obesity counseling Indication:LUIZA (obstructive sleep apnea) Start:12-Dec-2020 Instruction Type:Provider Instructions for Treatment Patient Instructions Indication:BMI 50.0-59.9, adult Start:12-Dec-2020 Instruction Type:Provider Instructions for Treatment How to Access Health Informa tion Online using Patient Portal and [employer] Apps Indication:BMI 50.0-59.9, adult Start:12-Dec-2020 Instruction Type:Patient Education Patient Instructions Indication:Non-smoker Start:04-Sep-2020 Instruction Type:Provider Instructions for Treatment How to Access Health Informa tion Online using Patient Portal and [employer] Apps Indication:Non-smoker Start:04-Sep-2020 Instruction Type:Patient Education How [...] tion Online using Patient Portal and [employer] Apps Indication:Non-smoker Start:12-Oct-2021 Instruction Type:Patient Education Patient Instructions Indication:Non-smoker Start:21-Aug-2021 Instruction Type:Provider Instructions for Treatment How to Access Health Informa tion Online using Patient Portal and [email or web address] Apps Indication:Non-smoker Start:21-Aug-2021 Instruction Type:Patient Education Patient Instructions Indication:BMI 45.0-49.9, adult Start:29-Jul-2021 Instruction Type:Provider Instructions for Treatment How to Access Health Informa tion Online using Patient Portal and [employer] Apps Indication:BMI 45.0-49.9, adult Start:29-Jul-2021 Instruction Type:Patient Education Patient Instructions Indication:Hypothyroid Start:19-Jul-2021 Instruction Type:Provider Instructions for Treatment Patient Instructions Indication:Non-smoker Start:13-Jul-2021 Instruction Type:Provider Instructions for Treatment How to Access Health Informa tion Online using Patient Portal and [employer] Apps Indication:Non-smoker Start:13-Jul-2021 Instruction Type:Patient Education Patient Instructions Indication:BMI 45.0-49.9, adult Start:25-May-2021 Instruction Type:Provider Instructions for Treatment How to Access Health Informa tion Online using Patient Portal and [employer] Apps Indication:BMI 45.0-49.9, adult Start:25-May-2021 Instruction Type:Patient Education Patient Instructions Indication:Obesity, morbid (more than 100 lbs over ideal weight or BMI > 40) Start:18-Mar-2021 Instruction Type:Provider Instructions for Treatment How to Access Health Informa tion Online using Patient Portal and [employer] Apps Indication:Obesity, morbid (more than 100 lbs over ideal weight or BMI > 40) Start:18-Mar-2021 Instruction Type:Patient Education Patient Instructions Indication:Non-smoker Start:25-Feb-2021 Instruction Type:Provider Instructions for Treatment How to Access Health Informa tion Online using Patient Portal and [employer] Apps Indication:Non-smoker Start:25-Feb-2021 Instruction Type:Patient Education obesity counseling Indication:LUIZA (obstructive sleep apnea) Start:12-Dec-2020 Instruction Type:Provider Instructions for Treatment Patient Instructions Indication:BMI 50.0-59.9, adult Start:12-Dec-2020 Instruction Type:Provider Instructions for Treatment How to Access Health Informa tion Online using Patient Portal and [employer] Apps Indication:BMI 50.0-59.9, adult Start:12-Dec-2020 Instruction Type:Patient Education Patient Instructions Indication:Non-smoker Start:04-Sep-2020 Instruction Type:Provider Instructions for Treatment How to Access Health Informa tion Online using Patient Portal and [employer] Apps Indication:Non-smoker Start:04-Sep-2020 Instruction Type:Patient Education How [...] tion Online using Patient Portal and [employer] Apps Indication:Non-smoker Start:09-Nov-2021 Instruction Type:Patient Education Patient Instructions Indication:Non-smoker Start:12-Oct-2021 Instruction Type:Provider Instructions for Treatment How to Access Health Informa tion Online using Patient Portal and [employer] Apps Indication:Non-smoker Start:12-Oct-2021 Instruction Type:Patient Education Patient Instructions Indication:Non-smoker Start:21-Aug-2021 Instruction Type:Provider Instructions for Treatment How to Access Health Informa tion Online using Patient Portal and [employer] Apps Indication:Non-smoker Start:21-Aug-2021 Instruction Type:Patient Education Patient Instructions Indication:BMI 45.0-49.9, adult Start:29-Jul-2021 Instruction Type:Provider Instructions for Treatment How to Access Health Informa tion Online using Patient Portal and [employer] Apps Indication:BMI 45.0-49.9, adult Start:29-Jul-2021 Instruction Type:Patient Education Patient Instructions Indication:Hypothyroid Start:19-Jul-2021 Instruction Type:Provider Instructions for Treatment Patient Instructions Indication:Non-smoker Start:13-Jul-2021 Instruction Type:Provider Instructions for Treatment How to Access Health Informa tion Online using Patient Portal and [employer] Apps Indication:Non-smoker Start:13-Jul-2021 Instruction Type:Patient Education Patient Instructions Indication:BMI 45.0-49.9, adult Start:25-May-2021 Instruction Type:Provider Instructions for Treatment How to Access Health Informa tion Online using Patient Portal and [employer] Apps Indication:BMI 45.0-49.9, adult Start:25-May-2021 Instruction Type:Patient Education Patient Instructions Indication:Obesity, morbid (more than 100 lbs over ideal weight or BMI > 40) Start:18-Mar-2021 Instruction Type:Provider Instructions for Treatment How to Access Health Informa tion Online using Patient Portal and [employer] Apps Indication:Obesity, morbid (more than 100 lbs over ideal weight or BMI > 40) Start:18-Mar-2021 Instruction Type:Patient Education Patient Instructions Indication:Non-smoker Start:25-Feb-2021 Instruction Type:Provider Instructions for Treatment How to Access Health Informa tion Online using Patient Portal and [employer] Apps Indication:Non-smoker Start:25-Feb-2021 Instruction Type:Patient Education obesity counseling Indication:LUIZA (obstructive sleep apnea) Start:12-Dec-2020 Instruction Type:Provider Instructions for Treatment Patient Instructions Indication:BMI 50.0-59.9, adult Start:12-Dec-2020 Instruction Type:Provider Instructions for Treatment How to Access Health Informa tion Online using Patient Portal and [employer] Apps Indication:BMI 50.0-59.9, adult Start:12-Dec-2020 Instruction Type:Patient Education Patient Instructions Indication:Non-smoker Start:04-Sep-2020 Instruction Type:Provider Instructions for Treatment How to Access Health Informa tion Online using Patient Portal and [employer] Apps Indication:Non-smoker Start:04-Sep-2020 Instruction Type:Patient Education How [...] tion Online using Patient Portal and [employer] Apps Indication:Non-smoker Start:09-Nov-2021 Instruction Type:Patient Education Patient Instructions Indication:Non-smoker Start:12-Oct-2021 Instruction Type:Provider Instructions for Treatment How to Access Health Informa tion Online using Patient Portal and [employer] Apps Indication:Non-smoker Start:12-Oct-2021 Instruction Type:Patient Education Patient Instructions Indication:Non-smoker Start:21-Aug-2021 Instruction Type:Provider Instructions for Treatment How to Access Health Informa tion Online using Patient Portal and [employer] Apps Indication:Non-smoker Start:21-Aug-2021 Instruction Type:Patient Education Patient Instructions Indication:BMI 45.0-49.9, adult Start:29-Jul-2021 Instruction Type:Provider Instructions for Treatment How to Access Health Informa tion Online using Patient Portal and [employer] Apps Indication:BMI 45.0-49.9, adult Start:29-Jul-2021 Instruction Type:Patient Education Patient Instructions Indication:Hypothyroid Start:19-Jul-2021 Instruction Type:Provider Instructions for Treatment Patient Instructions Indication:Non-smoker Start:13-Jul-2021 Instruction Type:Provider Instructions for Treatment How to Access Health Informa tion Online using Patient Portal and [employer] Apps Indication:Non-smoker Start:13-Jul-2021 Instruction Type:Patient Education Patient Instructions Indication:BMI 45.0-49.9, adult Start:25-May-2021 Instruction Type:Provider Instructions for Treatment How to Access Health Informa tion Online using Patient Portal and [employer] Apps Indication:BMI 45.0-49.9, adult Start:25-May-2021 Instruction Type:Patient Education Patient Instructions Indication:Obesity, morbid (more than 100 lbs over ideal weight or BMI > 40) Start:18-Mar-2021 Instruction Type:Provider Instructions for Treatment How to Access Health Informa tion Online using Patient Portal and [employer] Apps Indication:Obesity, morbid (more than 100 lbs over ideal weight or BMI > 40) Start:18-Mar-2021 Instruction Type:Patient Education Patient Instructions Indication:Non-smoker Start:25-Feb-2021 Instruction Type:Provider Instructions for Treatment How to Access Health Informa tion Online using Patient Portal and [employer] Apps Indication:Non-smoker Start:25-Feb-2021 Instruction Type:Patient Education obesity counseling Indication:LUIZA (obstructive sleep apnea) Start:12-Dec-2020 Instruction Type:Provider Instructions for Treatment Patient Instructions Indication:BMI 50.0-59.9, adult Start:12-Dec-2020 Instruction Type:Provider Instructions for Treatment How to Access Health Informa tion Online using Patient Portal and [employer] Apps Indication:BMI 50.0-59.9, adult Start:12-Dec-2020 Instruction Type:Patient Education Patient Instructions Indication:Non-smoker Start:04-Sep-2020 Instruction Type:Provider Instructions for Treatment How to Access Health Informa tion Online using Patient Portal and [employer] Apps Indication:Non-smoker Start:04-Sep-2020 Instruction Type:Patient Education How [...] tion Online using Patient Portal and [employer] Apps Indication:Non-smoker Start:09-Nov-2021 Instruction Type:Patient Education Patient Instructions Indication:Non-smoker Start:12-Oct-2021 Instruction Type:Provider Instructions for Treatment How to Access Health Informa tion Online using Patient Portal and [employer] Apps Indication:Non-smoker Start:12-Oct-2021 Instruction Type:Patient Education Patient Instructions Indication:Non-smoker Start:21-Aug-2021 Instruction Type:Provider Instructions for Treatment How to Access Health Informa tion Online using Patient Portal and [employer] Apps Indication:Non-smoker Start:21-Aug-2021 Instruction Type:Patient Education Patient Instructions Indication:BMI 45.0-49.9, adult Start:29-Jul-2021 Instruction Type:Provider Instructions for Treatment How to Access Health Informa tion Online using Patient Portal and [employer] Apps Indication:BMI 45.0-49.9, adult Start:29-Jul-2021 Instruction Type:Patient Education Patient Instructions Indication:Hypothyroid Start:19-Jul-2021 Instruction Type:Provider Instructions for Treatment Patient Instructions Indication:Non-smoker Start:13-Jul-2021 Instruction Type:Provider Instructions for Treatment How to Access Health Informa tion Online using Patient Portal and [employer] Apps Indication:Non-smoker Start:13-Jul-2021 Instruction Type:Patient Education Patient Instructions Indication:BMI 45.0-49.9, adult Start:25-May-2021 Instruction Type:Provider Instructions for Treatment How to Access Health Informa tion Online using Patient Portal and [employer] Apps Indication:BMI 45.0-49.9, adult Start:25-May-2021 Instruction Type:Patient Education Patient Instructions Indication:Obesity, morbid (more than 100 lbs over ideal weight or BMI > 40) Start:18-Mar-2021 Instruction Type:Provider Instructions for Treatment How to Access Health Informa tion Online using Patient Portal and [employer] Apps Indication:Obesity, morbid (more than 100 lbs over ideal weight or BMI > 40) Start:18-Mar-2021 Instruction Type:Patient Education Patient Instructions Indication:Non-smoker Start:25-Feb-2021 Instruction Type:Provider Instructions for Treatment How to Access Health Informa tion Online using Patient Portal and [employer] Apps Indication:Non-smoker Start:25-Feb-2021 Instruction Type:Patient Education obesity counseling Indication:LUIZA (obstructive sleep apnea) Start:12-Dec-2020 Instruction Type:Provider Instructions for Treatment Patient Instructions Indication:BMI 50.0-59.9, adult Start:12-Dec-2020 Instruction Type:Provider Instructions for Treatment How to Access Health Informa tion Online using Patient Portal and [employer] Apps Indication:BMI 50.0-59.9, adult Start:12-Dec-2020 Instruction Type:Patient Education Patient Instructions Indication:Non-smoker Start:04-Sep-2020 Instruction Type:Provider Instructions for Treatment How to Access Health Informa tion Online using Patient Portal and [employer] Apps Indication:Non-smoker Start:04-Sep-2020 Instruction Type:Patient Education How [...] tion Online using Patient Portal and [employer] Apps Indication:Non-smoker Start:09-Nov-2021 Instruction Type:Patient Education Patient Instructions Indication:Non-smoker Start:12-Oct-2021 Instruction Type:Provider Instructions for Treatment How to Access Health Informa tion Online using Patient Portal and [employer] Indication:Non-smoker Start:12-Oct-2021 Instruction Type:Patient Education Patient Instructions Indication:Non-smoker Start:21-Aug-2021 Instruction Type:Provider Instructions for Treatment How to Access Health Informa tion Online using Patient Portal and [employer] Apps Indication:Non-smoker Start:21-Aug-2021 Instruction Type:Patient Education Patient Instructions Indication:BMI 45.0-49.9, adult Start:29-Jul-2021 Instruction Type:Provider Instructions for Treatment How to Access Health Informa tion Online using Patient Portal and [employer] Apps Indication:BMI 45.0-49.9, adult Start:29-Jul-2021 Instruction Type:Patient Education Patient Instructions Indication:Hypothyroid Start:19-Jul-2021 Instruction Type:Provider Instructions for Treatment Patient Instructions Indication:Non-smoker Start:13-Jul-2021 Instruction Type:Provider Instructions for Treatment How to Access Health Informa tion Online using Patient Portal and [employer] Apps Indication:Non-smoker Start:13-Jul-2021 Instruction Type:Patient Education Patient Instructions Indication:BMI 45.0-49.9, adult Start:25-May-2021 Instruction Type:Provider Instructions for Treatment How to Access Health Informa tion Online using Patient Portal and [employer] Apps Indication:BMI 45.0-49.9, adult Start:25-May-2021 Instruction Type:Patient Education Patient Instructions Indication:Obesity, morbid (more than 100 lbs over ideal weight or BMI > 40) Start:18-Mar-2021 Instruction Type:Provider Instructions for Treatment How to Access Health Informa tion Online using Patient Portal and [employer] Apps Indication:Obesity, morbid (more than 100 lbs over ideal weight or BMI > 40) Start:18-Mar-2021 Instruction Type:Patient Education Patient Instructions Indication:Non-smoker Start:25-Feb-2021 Instruction Type:Provider Instructions for Treatment How to Access Health Informa tion Online using Patient Portal and [employer] Apps Indication:Non-smoker Start:25-Feb-2021 Instruction Type:Patient Education obesity counseling Indication:LUIZA (obstructive sleep apnea) Start:12-Dec-2020 Instruction Type:Provider Instructions for Treatment Patient Instructions Indication:BMI 50.0-59.9, adult Start:12-Dec-2020 Instruction Type:Provider Instructions for Treatment How to Access Health Informa tion Online using Patient Portal and [employer] Apps Indication:BMI 50.0-59.9, adult Start:12-Dec-2020 Instruction Type:Patient Education Patient Instructions Indication:Non-smoker Start:04-Sep-2020 Instruction Type:Provider Instructions for Treatment How to Access Health Informa tion Online using Patient Portal and [employer] Apps Indication:Non-smoker Start:04-Sep-2020 Instruction Type:Patient Education How [...] Informa tion Online using Patient Portal and [employer] Apps Indication:Non-smoker Start:09-Nov-2021 Instruction Type:Patient Education Patient Instructions Indication:Non-smoker Start:12-Oct-2021 Instruction Type:Provider Instructions for Treatment How to Access Health Informa tion Online using Patient Portal and [employer] Apps Indication:Non-smoker Start:12-Oct-2021 Instruction Type:Patient Education Patient Instructions Indication:Non-smoker Start:21-Aug-2021 Instruction Type:Provider Instructions for Treatment How to Access Health Informa tion Online using Patient Portal and [employer] Apps Indication:Non-smoker Start:21-Aug-2021 Instruction Type:Patient Education Patient Instructions Indication:BMI 45.0-49.9, adult Start:29-Jul-2021 Instruction Type:Provider Instructions for Treatment How to Access Health Informa tion Online using Patient Portal and [employer] Apps Indication:BMI 45.0-49.9, adult Start:29-Jul-2021 Instruction Type:Patient Education Patient Instructions Indication:Hypothyroid Start:19-Jul-2021 Instruction Type:Provider Instructions for Treatment Patient Instructions Indication:Non-smoker Start:13-Jul-2021 Instruction Type:Provider Instructions for Treatment How to Access Health Informa tion Online using Patient Portal and [employer] Apps Indication:Non-smoker Start:13-Jul-2021 Instruction Type:Patient Education Patient Instructions Indication:BMI 45.0-49.9, adult Start:25-May-2021 Instruction Type:Provider Instructions for Treatment How to Access Health Informa tion Online using Patient Portal and [employer] Apps Indication:BMI 45.0-49.9, adult Start:25-May-2021 Instruction Type:Patient Education Patient Instructions Indication:Obesity, morbid (more than 100 lbs over ideal weight or BMI > 40) Start:18-Mar-2021 Instruction Type:Provider Instructions for Treatment How to Access Health Informa tion Online using Patient Portal and [employer] Apps Indication:Obesity, morbid (more than 100 lbs over ideal weight or BMI > 40) Start:18-Mar-2021 Instruction Type:Patient Education Patient Instructions Indication:Non-smoker Start:25-Feb-2021 Instruction Type:Provider Instructions for Treatment How to Access Health Informa tion Online using Patient Portal and [employer] Apps Indication:Non-smoker Start:25-Feb-2021 Instruction Type:Patient Education obesity counseling Indication:LUIZA (obstructive sleep apnea) Start:12-Dec-2020 Instruction Type:Provider Instructions for Treatment Patient Instructions Indication:BMI 50.0-59.9, adult Start:12-Dec-2020 Instruction Type:Provider Instructions for Treatment How to Access Health Informa tion Online using Patient Portal and [employer] Apps Indication:BMI 50.0-59.9, adult Start:12-Dec-2020 Instruction Type:Patient Education Patient Instructions Indication:Non-smoker Start:04-Sep-2020 Instruction Type:Provider Instructions for Treatment How to Access Health Informa tion Online using Patient Portal and [employer] Apps Indication:Non-smoker Start:04-Sep-2020 Instruction Type:Patient Education How [...] tion Online using Patient Portal and [employer] Apps Indication:Non-smoker Start:09-Nov-2021 Instruction Type:Patient Education Patient Instructions Indication:Non-smoker Start:12-Oct-2021 Instruction Type:Provider Instructions for Treatment How to Access Health Informa tion Online using Patient Portal and [employer] Apps Indication:Non-smoker Start:12-Oct-2021 Instruction Type:Patient Education Patient Instructions Indication:Non-smoker Start:21-Aug-2021 Instruction Type:Provider Instructions for Treatment How to Access Health Informa tion Online using Patient Portal and [employer] Apps Indication:Non-smoker Start:21-Aug-2021 Instruction Type:Patient Education Patient Instructions Indication:BMI 45.0-49.9, adult Start:29-Jul-2021 Instruction Type:Provider Instructions for Treatment How to Access Health Informa tion Online using Patient Portal and [employer] Apps Indication:BMI 45.0-49.9, adult Start:29-Jul-2021 Instruction Type:Patient Education Patient Instructions Indication:Hypothyroid Start:19-Jul-2021 Instruction Type:Provider Instructions for Treatment Patient Instructions Indication:Non-smoker Start:13-Jul-2021 Instruction Type:Provider Instructions for Treatment How to Access Health Informa tion Online using Patient Portal and [employer] Apps Indication:Non-smoker Start:13-Jul-2021 Instruction Type:Patient Education Patient Instructions Indication:BMI 45.0-49.9, adult Start:25-May-2021 Instruction Type:Provider Instructions for Treatment How to Access Health Informa tion Online using Patient Portal and [employer] Apps Indication:BMI 45.0-49.9, adult Start:25-May-2021 Instruction Type:Patient Education Patient Instructions Indication:Obesity, morbid (more than 100 lbs over ideal weight or BMI > 40) Start:18-Mar-2021 Instruction Type:Provider Instructions for Treatment How to Access Health Informa tion Online using Patient Portal and [employer] Apps Indication:Obesity, morbid (more than 100 lbs over ideal weight or BMI > 40) Start:18-Mar-2021 Instruction Type:Patient Education Patient Instructions Indication:Non-smoker Start:25-Feb-2021 Instruction Type:Provider Instructions for Treatment How to Access Health Informa tion Online using Patient Portal and [employer] Apps Indication:Non-smoker Start:25-Feb-2021 Instruction Type:Patient Education obesity counseling Indication:LUIZA (obstructive sleep apnea) Start:12-Dec-2020 Instruction Type:Provider Instructions for Treatment Patient Instructions Indication:BMI 50.0-59.9, adult Start:12-Dec-2020 Instruction Type:Provider Instructions for Treatment How to Access Health Informa tion Online using Patient Portal and [employer] Apps Indication:BMI 50.0-59.9, adult Start:12-Dec-2020 Instruction Type:Patient Education Patient Instructions Indication:Non-smoker Start:04-Sep-2020 Instruction Type:Provider Instructions for Treatment How to Access Health Informa tion Online using Patient Portal and [employer] Apps Indication:Non-smoker Start:04-Sep-2020 Instruction Type:Patient Education How [...] tion Online using Patient Portal and [employer] Apps Indication:Non-smoker Start:09-Nov-2021 Instruction Type:Patient Education Patient Instructions Indication:Non-smoker Start:12-Oct-2021 Instruction Type:Provider Instructions for Treatment How to Access Health Informa tion Online using Patient Portal and [employer] Apps Indication:Non-smoker Start:12-Oct-2021 Instruction Type:Patient Education Patient Instructions Indication:Non-smoker Start:21-Aug-2021 Instruction Type:Provider Instructions for Treatment How to Access Health Informa tion Online using Patient Portal and [employer] Apps Indication:Non-smoker Start:21-Aug-2021 Instruction Type:Patient Education Patient Instructions Indication:BMI 45.0-49.9, adult Start:29-Jul-2021 Instruction Type:Provider Instructions for Treatment How to Access Health Informa tion Online using Patient Portal and [employer] Apps Indication:BMI 45.0-49.9, adult Start:29-Jul-2021 Instruction Type:Patient Education Patient Instructions Indication:Hypothyroid Start:19-Jul-2021 Instruction Type:Provider Instructions for Treatment Patient Instructions Indication:Non-smoker Start:13-Jul-2021 Instruction Type:Provider Instructions for Treatment How to Access Health Informa tion Online using Patient Portal and [employer] Apps Indication:Non-smoker Start:13-Jul-2021 Instruction Type:Patient Education Patient Instructions Indication:BMI 45.0-49.9, adult Start:25-May-2021 Instruction Type:Provider Instructions for Treatment How to Access Health Informa tion Online using Patient Portal and [employer] Apps Indication:BMI 45.0-49.9, adult Start:25-May-2021 Instruction Type:Patient Education Patient Instructions Indication:Obesity, morbid (more than 100 lbs over ideal weight or BMI > 40) Start:18-Mar-2021 Instruction Type:Provider Instructions for Treatment How to Access Health Informa tion Online using Patient Portal and [employer] Apps Indication:Obesity, morbid (more than 100 lbs over ideal weight or BMI > 40) Start:18-Mar-2021 Instruction Type:Patient Education Patient Instructions Indication:Non-smoker Start:25-Feb-2021 Instruction Type:Provider Instructions for Treatment How to Access Health Informa tion Online using Patient Portal and [employer] Apps Indication:Non-smoker Start:25-Feb-2021 Instruction Type:Patient Education obesity counseling Indication:LUIZA (obstructive sleep apnea) Start:12-Dec-2020 Instruction Type:Provider Instructions for Treatment Patient Instructions Indication:BMI 50.0-59.9, adult Start:12-Dec-2020 Instruction Type:Provider Instructions for Treatment How to Access Health Informa tion Online using Patient Portal and [employer] Apps Indication:BMI 50.0-59.9, adult Start:12-Dec-2020 Instruction Type:Patient Education Patient Instructions Indication:Non-smoker Start:04-Sep-2020 Instruction Type:Provider Instructions for Treatment How to Access Health Informa tion Online using Patient Portal and [employer] Apps Indication:Non-smoker Start:04-Sep-2020 Instruction Type:Patient Education How [...] tion Online using Patient Portal and [employer] Apps Indication:Non-smoker Start:09-Nov-2021 Instruction Type:Patient Education Patient Instructions Indication:Non-smoker Start:12-Oct-2021 Instruction Type:Provider Instructions for Treatment How to Access Health Informa tion Online using Patient Portal and [employer] Apps Indication:Non-smoker Start:12-Oct-2021 Instruction Type:Patient Education Patient Instructions Indication:Non-smoker Start:21-Aug-2021 Instruction Type:Provider Instructions for Treatment How to Access Health Informa tion Online using Patient Portal and [employer] Apps Indication:Non-smoker Start:21-Aug-2021 Instruction Type:Patient Education Patient Instructions Indication:BMI 45.0-49.9, adult Start:29-Jul-2021 Instruction Type:Provider Instructions for Treatment How to Access Health Informa tion Online using Patient Portal and [employer] Apps Indication:BMI 45.0-49.9, adult Start:29-Jul-2021 Instruction Type:Patient Education Patient Instructions Indication:Hypothyroid Start:19-Jul-2021 Instruction Type:Provider Instructions for Treatment Patient Instructions Indication:Non-smoker Start:13-Jul-2021 Instruction Type:Provider Instructions for Treatment How to Access Health Informa tion Online using Patient Portal and [employer] Apps Indication:Non-smoker Start:13-Jul-2021 Instruction Type:Patient Education Patient Instructions Indication:BMI 45.0-49.9, adult Start:25-May-2021 Instruction Type:Provider Instructions for Treatment How to Access Health Informa tion Online using Patient Portal and [employer] Apps Indication:BMI 45.0-49.9, adult Start:25-May-2021 Instruction Type:Patient Education Patient Instructions Indication:Obesity, morbid (more than 100 lbs over ideal weight or BMI > 40) Start:18-Mar-2021 Instruction Type:Provider Instructions for Treatment How to Access Health Informa tion Online using Patient Portal and [employer] Apps Indication:Obesity, morbid (more than 100 lbs over ideal weight or BMI > 40) Start:18-Mar-2021 Instruction Type:Patient Education Patient Instructions Indication:Non-smoker Start:25-Feb-2021 Instruction Type:Provider Instructions for Treatment How to Access Health Informa tion Online using Patient Portal and [employer] Apps Indication:Non-smoker Start:25-Feb-2021 Instruction Type:Patient Education obesity counseling Indication:LUIZA (obstructive sleep apnea) Start:12-Dec-2020 Instruction Type:Provider Instructions for Treatment Patient Instructions Indication:BMI 50.0-59.9, adult Start:12-Dec-2020 Instruction Type:Provider Instructions for Treatment How to Access Health Informa tion Online using Patient Portal and [employer] Apps Indication:BMI 50.0-59.9, adult Start:12-Dec-2020 Instruction Type:Patient Education Patient Instructions Indication:Non-smoker Start:04-Sep-2020 Instruction Type:Provider Instructions for Treatment How to Access Health Informa tion Online using Patient Portal and [employer] Apps Indication:Non-smoker Start:04-Sep-2020 Instruction Type:Patient Education How [...] tion Online using Patient Portal and [employer] Apps Indication:Non-smoker Start:21-Jan-2022 Instruction Type:Patient Education Patient Instructions Indication:Non-smoker Start:09-Nov-2021 Instruction Type:Provider Instructions for Treatment How to Access Health Informa tion Online using Patient Portal and [employer] Apps Indication:Non-smoker Start:09-Nov-2021 Instruction Type:Patient Education Patient Instructions Indication:Non-smoker Start:12-Oct-2021 Instruction Type:Provider Instructions for Treatment How to Access Health Informa tion Online using Patient Portal and [employer] Apps Indication:Non-smoker Start:12-Oct-2021 Instruction Type:Patient Education Patient Instructions Indication:Non-smoker Start:21-Aug-2021 Instruction Type:Provider Instructions for Treatment How to Access Health Informa tion Online using Patient Portal and [employer] Apps Indication:Non-smoker Start:21-Aug-2021 Instruction Type:Patient Education Patient Instructions Indication:BMI 45.0-49.9, adult Start:29-Jul-2021 Instruction Type:Provider Instructions for Treatment How to Access Health Informa tion Online using Patient Portal and [employer] Apps Indication:BMI 45.0-49.9, adult Start:29-Jul-2021 Instruction Type:Patient Education Patient Instructions Indication:Hypothyroid Start:19-Jul-2021 Instruction Type:Provider Instructions for Treatment Patient Instructions Indication:Non-smoker Start:13-Jul-2021 Instruction Type:Provider Instructions for Treatment How to Access Health Informa tion Online using Patient Portal and [employer] Apps Indication:Non-smoker Start:13-Jul-2021 Instruction Type:Patient Education Patient Instructions Indication:BMI 45.0-49.9, adult Start:25-May-2021 Instruction Type:Provider Instructions for Treatment How to Access Health Informa tion Online using Patient Portal and [employer] Apps Indication:BMI 45.0-49.9, adult Start:25-May-2021 Instruction Type:Patient Education Patient Instructions Indication:Obesity, morbid (more than 100 lbs over ideal weight or BMI > 40) Start:18-Mar-2021 Instruction Type:Provider Instructions for Treatment How to Access Health Informa tion Online using Patient Portal and [employer] Apps Indication:Obesity, morbid (more than 100 lbs over ideal weight or BMI > 40) Start:18-Mar-2021 Instruction Type:Patient Education Patient Instructions Indication:Non-smoker Start:25-Feb-2021 Instruction Type:Provider Instructions for Treatment How to Access Health Informa tion Online using Patient Portal and [employer] Apps Indication:Non-smoker Start:25-Feb-2021 Instruction Type:Patient Education obesity counseling Indication:LUIZA (obstructive sleep apnea) Start:12-Dec-2020 Instruction Type:Provider Instructions for Treatment Patient Instructions Indication:BMI 50.0-59.9, adult Start:12-Dec-2020 Instruction Type:Provider Instructions for Treatment How to Access Health Informa tion Online using Patient Portal and [employer] Apps Indication:BMI 50.0-59.9, adult Start:12-Dec-2020 Instruction Type:Patient Education Patient Instructions Indication:Non-smoker Start:04-Sep-2020 Instruction Type:Provider Instructions for Treatment How to Access Health Informa tion Online using Patient Portal and [email or web address] Apps Indication:Non-smoker Start:04-Sep-2020 Instruction Type:Patient Education How [...] tion Online using Patient Portal and [employer] Apps Indication:Non-smoker Start:21-Jan-2022 Instruction Type:Patient Education Patient Instructions Indication:Non-smoker Start:09-Nov-2021 Instruction Type:Provider Instructions for Treatment How to Access Health Informa tion Online using Patient Portal and [employer] Apps Indication:Non-smoker Start:09-Nov-2021 Instruction Type:Patient Education Patient Instructions Indication:Non-smoker Start:21-Aug-2021 Instruction Type:Provider Instructions for Treatment How to Access Health Informa tion Online using Patient Portal and [employer] Apps Indication:Non-smoker Start:21-Aug-2021 Instruction Type:Patient Education Patient Instructions Indication:BMI 45.0-49.9, adult Start:29-Jul-2021 Instruction Type:Provider Instructions for Treatment How to Access Health Informa tion Online using Patient Portal and [employer] Apps Indication:BMI 45.0-49.9, adult Start:29-Jul-2021 Instruction Type:Patient Education Patient Instructions Indication:Hypothyroid Start:19-Jul-2021 Instruction Type:Provider Instructions for Treatment Patient Instructions Indication:Non-smoker Start:13-Jul-2021 Instruction Type:Provider Instructions for Treatment How to Access Health Informa tion Online using Patient Portal and [employer] Apps Indication:Non-smoker Start:13-Jul-2021 Instruction Type:Patient Education Patient Instructions Indication:BMI 45.0-49.9, adult Start:25-May-2021 Instruction Type:Provider Instructions for Treatment How to Access Health Informa tion Online using Patient Portal and [employer] Apps Indication:BMI 45.0-49.9, adult Start:25-May-2021 Instruction Type:Patient Education Patient Instructions Indication:Obesity, morbid (more than 100 lbs over ideal weight or BMI > 40) Start:18-Mar-2021 Instruction Type:Provider Instructions for Treatment How to Access Health Informa tion Online using Patient Portal and [employer] Apps Indication:Obesity, morbid (more than 100 lbs over ideal weight or BMI > 40) Start:18-Mar-2021 Instruction Type:Patient Education Patient Instructions Indication:Non-smoker Start:25-Feb-2021 Instruction Type:Provider Instructions for Treatment How to Access Health Informa tion Online using Patient Portal and [employer] Apps Indication:Non-smoker Start:25-Feb-2021 Instruction Type:Patient Education obesity counseling Indication:LUIZA (obstructive sleep apnea) Start:12-Dec-2020 Instruction Type:Provider Instructions for Treatment Patient Instructions Indication:BMI 50.0-59.9, adult Start:12-Dec-2020 Instruction Type:Provider Instructions for Treatment How to Access Health Informa tion Online using Patient Portal and [employer] Apps Indication:BMI 50.0-59.9, adult Start:12-Dec-2020 Instruction Type:Patient Education Patient Instructions Indication:Non-smoker Start:04-Sep-2020 Instruction Type:Provider Instructions for Treatment How to Access Health Informa tion Online using Patient Portal and [employer] Apps Indication:Non-smoker Start:04-Sep-2020 Instruction Type:Patient Education How [...] tion Online using Patient Portal and [employer] Apps Indication:Non-smoker Start:21-Jan-2022 Instruction Type:Patient Education Patient Instructions Indication:Non-smoker Start:09-Nov-2021 Instruction Type:Provider Instructions for Treatment How to Access Health Informa tion Online using Patient Portal and [employer] Apps Indication:Non-smoker Start:09-Nov-2021 Instruction Type:Patient Education Patient Instructions Indication:Non-smoker Start:21-Aug-2021 Instruction Type:Provider Instructions for Treatment How to Access Health Informa tion Online using Patient Portal and [employer] Apps Indication:Non-smoker Start:21-Aug-2021 Instruction Type:Patient Education Patient Instructions Indication:BMI 45.0-49.9, adult Start:29-Jul-2021 Instruction Type:Provider Instructions for Treatment How to Access Health Informa tion Online using Patient Portal and [employer] Apps Indication:BMI 45.0-49.9, adult Start:29-Jul-2021 Instruction Type:Patient Education Patient Instructions Indication:Hypothyroid Start:19-Jul-2021 Instruction Type:Provider Instructions for Treatment Patient Instructions Indication:Non-smoker Start:13-Jul-2021 Instruction Type:Provider Instructions for Treatment How to Access Health Informa tion Online using Patient Portal and [employer] Apps Indication:Non-smoker Start:13-Jul-2021 Instruction Type:Patient Education Patient Instructions Indication:BMI 45.0-49.9, adult Start:25-May-2021 Instruction Type:Provider Instructions for Treatment How to Access Health Informa tion Online using Patient Portal and [employer] Apps Indication:BMI 45.0-49.9, adult Start:25-May-2021 Instruction Type:Patient Education Patient Instructions Indication:Obesity, morbid (more than 100 lbs over ideal weight or BMI > 40) Start:18-Mar-2021 Instruction Type:Provider Instructions for Treatment How to Access Health Informa tion Online using Patient Portal and [employer] Apps Indication:Obesity, morbid (more than 100 lbs over ideal weight or BMI > 40) Start:18-Mar-2021 Instruction Type:Patient Education Patient Instructions Indication:Non-smoker Start:25-Feb-2021 Instruction Type:Provider Instructions for Treatment How to Access Health Informa tion Online using Patient Portal and [employer] Apps Indication:Non-smoker Start:25-Feb-2021 Instruction Type:Patient Education obesity counseling Indication:LUIZA (obstructive sleep apnea) Start:12-Dec-2020 Instruction Type:Provider Instructions for Treatment Patient Instructions Indication:BMI 50.0-59.9, adult Start:12-Dec-2020 Instruction Type:Provider Instructions for Treatment How to Access Health Informa tion Online using Patient Portal and [email or web address] Apps Indication:BMI 50.0-59.9, adult Start:12-Dec-2020 Instruction Type:Patient Education Patient Instructions Indication:Non-smoker Start:04-Sep-2020 Instruction Type:Provider Instructions for Treatment How to Access Health Informa tion Online using Patient Portal and [employer] Apps Indication:Non-smoker Start:04-Sep-2020 Instruction Type:Patient Education How [...] tion Online using Patient Portal and [employer] Apps Indication:Non-smoker Start:21-Jan-2022 Instruction Type:Patient Education Patient Instructions Indication:Non-smoker Start:09-Nov-2021 Instruction Type:Provider Instructions for Treatment How to Access Health Informa tion Online using Patient Portal and [employer] Apps Indication:Non-smoker Start:09-Nov-2021 Instruction Type:Patient Education Patient Instructions Indication:Non-smoker Start:21-Aug-2021 Instruction Type:Provider Instructions for Treatment How to Access Health Informa tion Online using Patient Portal and [employer] Apps Indication:Non-smoker Start:21-Aug-2021 Instruction Type:Patient Education Patient Instructions Indication:BMI 45.0-49.9, adult Start:29-Jul-2021 Instruction Type:Provider Instructions for Treatment How to Access Health Informa tion Online using Patient Portal and [employer] Apps Indication:BMI 45.0-49.9, adult Start:29-Jul-2021 Instruction Type:Patient Education Patient Instructions Indication:Hypothyroid Start:19-Jul-2021 Instruction Type:Provider Instructions for Treatment Patient Instructions Indication:Non-smoker Start:13-Jul-2021 Instruction Type:Provider Instructions for Treatment How to Access Health Informa tion Online using Patient Portal and [employer] Apps Indication:Non-smoker Start:13-Jul-2021 Instruction Type:Patient Education Patient Instructions Indication:BMI 45.0-49.9, adult Start:25-May-2021 Instruction Type:Provider Instructions for Treatment How to Access Health Informa tion Online using Patient Portal and [employer] Apps Indication:BMI 45.0-49.9, adult Start:25-May-2021 Instruction Type:Patient Education Patient Instructions Indication:Obesity, morbid (more than 100 lbs over ideal weight or BMI > 40) Start:18-Mar-2021 Instruction Type:Provider Instructions for Treatment How to Access Health Informa tion Online using Patient Portal and [employer] Apps Indication:Obesity, morbid (more than 100 lbs over ideal weight or BMI > 40) Start:18-Mar-2021 Instruction Type:Patient Education Patient Instructions Indication:Non-smoker Start:25-Feb-2021 Instruction Type:Provider Instructions for Treatment How to Access Health Informa tion Online using Patient Portal and [employer] Apps Indication:Non-smoker Start:25-Feb-2021 Instruction Type:Patient Education obesity counseling Indication:LUIZA (obstructive sleep apnea) Start:12-Dec-2020 Instruction Type:Provider Instructions for Treatment Patient Instructions Indication:BMI 50.0-59.9, adult Start:12-Dec-2020 Instruction Type:Provider Instructions for Treatment How to Access Health Informa tion Online using Patient Portal and [employer] Apps Indication:BMI 50.0-59.9, adult Start:12-Dec-2020 Instruction Type:Patient Education Patient Instructions Indication:Non-smoker Start:04-Sep-2020 Instruction Type:Provider Instructions for Treatment How to Access Health Informa tion Online using Patient Portal and [employer] Apps Indication:Non-smoker Start:04-Sep-2020 Instruction Type:Patient Education How [...] tion Online using Patient Portal and [employer] Apps Indication:Non-smoker Start:21-Jan-2022 Instruction Type:Patient Education Patient Instructions Indication:Non-smoker Start:09-Nov-2021 Instruction Type:Provider Instructions for Treatment How to Access Health Informa tion Online using Patient Portal and [employer] Apps Indication:Non-smoker Start:09-Nov-2021 Instruction Type:Patient Education Patient Instructions Indication:Non-smoker Start:21-Aug-2021 Instruction Type:Provider Instructions for Treatment How to Access Health Informa tion Online using Patient Portal and [employer] Apps Indication:Non-smoker Start:21-Aug-2021 Instruction Type:Patient Education Patient Instructions Indication:BMI 45.0-49.9, adult Start:29-Jul-2021 Instruction Type:Provider Instructions for Treatment How to Access Health Informa tion Online using Patient Portal and [employer] Apps Indication:BMI 45.0-49.9, adult Start:29-Jul-2021 Instruction Type:Patient Education Patient Instructions Indication:Hypothyroid Start:19-Jul-2021 Instruction Type:Provider Instructions for Treatment Patient Instructions Indication:Non-smoker Start:13-Jul-2021 Instruction Type:Provider Instructions for Treatment How to Access Health Informa tion Online using Patient Portal and [employer] Apps Indication:Non-smoker Start:13-Jul-2021 Instruction Type:Patient Education Patient Instructions Indication:BMI 45.0-49.9, adult Start:25-May-2021 Instruction Type:Provider Instructions for Treatment How to Access Health Informa tion Online using Patient Portal and [employer] Apps Indication:BMI 45.0-49.9, adult Start:25-May-2021 Instruction Type:Patient Education Patient Instructions Indication:Obesity, morbid (more than 100 lbs over ideal weight or BMI > 40) Start:18-Mar-2021 Instruction Type:Provider Instructions for Treatment How to Access Health Informa tion Online using Patient Portal and [employer] Apps Indication:Obesity, morbid (more than 100 lbs over ideal weight or BMI > 40) Start:18-Mar-2021 Instruction Type:Patient Education Patient Instructions Indication:Non-smoker Start:25-Feb-2021 Instruction Type:Provider Instructions for Treatment How to Access Health Informa tion Online using Patient Portal and [employer] Apps Indication:Non-smoker Start:25-Feb-2021 Instruction Type:Patient Education obesity counseling Indication:LUIZA (obstructive sleep apnea) Start:12-Dec-2020 Instruction Type:Provider Instructions for Treatment Patient Instructions Indication:BMI 50.0-59.9, adult Start:12-Dec-2020 Instruction Type:Provider Instructions for Treatment How to Access Health Informa tion Online using Patient Portal and [employer] Apps Indication:BMI 50.0-59.9, adult Start:12-Dec-2020 Instruction Type:Patient Education Patient Instructions Indication:Non-smoker Start:04-Sep-2020 Instruction Type:Provider Instructions for Treatment How to Access Health Informa tion Online using Patient Portal and [employer] Apps Indication:Non-smoker Start:04-Sep-2020 Instruction Type:Patient Education How [...] tion Online using Patient Portal and [employer] Apps Indication:Non-smoker Start:13-Oct-2022 Instruction Type:Patient Education Patient Instructions Indication:Non-smoker Start:21-Jan-2022 Instruction Type:Provider Instructions for Treatment How to Access Health Informa tion Online using Patient Portal and [employer] Apps Indication:Non-smoker Start:21-Jan-2022 Instruction Type:Patient Education Patient Instructions Indication:Non-smoker Start:09-Nov-2021 Instruction Type:Provider Instructions for Treatment How to Access Health Informa tion Online using Patient Portal and [employer] Apps Indication:Non-smoker Start:09-Nov-2021 Instruction Type:Patient Education Patient Instructions Indication:Non-smoker Start:21-Aug-2021 Instruction Type:Provider Instructions for Treatment How to Access Health Informa tion Online using Patient Portal and [employer] Apps Indication:Non-smoker Start:21-Aug-2021 Instruction Type:Patient Education Patient Instructions Indication:BMI 45.0-49.9, adult Start:29-Jul-2021 Instruction Type:Provider Instructions for Treatment How to Access Health Informa tion Online using Patient Portal and [employer] Apps Indication:BMI 45.0-49.9, adult Start:29-Jul-2021 Instruction Type:Patient Education Patient Instructions Indication:Hypothyroid Start:19-Jul-2021 Instruction Type:Provider Instructions for Treatment Patient Instructions Indication:Non-smoker Start:13-Jul-2021 Instruction Type:Provider Instructions for Treatment How to Access Health Informa tion Online using Patient Portal and [employer] Apps Indication:Non-smoker Start:13-Jul-2021 Instruction Type:Patient Education Patient Instructions Indication:BMI 45.0-49.9, adult Start:25-May-2021 Instruction Type:Provider Instructions for Treatment How to Access Health Informa tion Online using Patient Portal and [employer] Apps Indication:BMI 45.0-49.9, adult Start:25-May-2021 Instruction Type:Patient Education Patient Instructions Indication:Obesity, morbid (more than 100 lbs over ideal weight or BMI > 40) Start:18-Mar-2021 Instruction Type:Provider Instructions for Treatment How to Access Health Informa tion Online using Patient Portal and [employer] Apps Indication:Obesity, morbid (more than 100 lbs over ideal weight or BMI > 40) Start:18-Mar-2021 Instruction Type:Patient Education Patient Instructions Indication:Non-smoker Start:25-Feb-2021 Instruction Type:Provider Instructions for Treatment How to Access Health Informa tion Online using Patient Portal and [employer] Apps Indication:Non-smoker Start:25-Feb-2021 Instruction Type:Patient Education obesity counseling Indication:LUIZA (obstructive sleep apnea) Start:12-Dec-2020 Instruction Type:Provider Instructions for Treatment Patient Instructions Indication:BMI 50.0-59.9, adult Start:12-Dec-2020 Instruction Type:Provider Instructions for Treatment How to Access Health Informa tion Online using Patient Portal and [employer] Apps Indication:BMI 50.0-59.9, adult Start:12-Dec-2020 Instruction Type:Patient Education Patient Instructions Indication:Non-smoker Start:04-Sep-2020 Instruction Type:Provider Instructions for Treatment How to Access Health Informa tion Online using Patient Portal and [employer] Apps Indication:Non-smoker Start:04-Sep-2020 Instruction Type:Patient Education How [...] tion Online using Patient Portal and [employer] Apps Indication:Non-smoker Start:29-Oct-2022 Instruction Type:Patient Education Patient Instructions Indication:Non-smoker Start:13-Oct-2022 Instruction Type:Provider Instructions for Treatment How to Access Health Informa tion Online using Patient Portal and [employer] Apps Indication:Non-smoker Start:13-Oct-2022 Instruction Type:Patient Education Patient Instructions Indication:Non-smoker Start:21-Jan-2022 Instruction Type:Provider Instructions for Treatment How to Access Health Informa tion Online using Patient Portal and [employer] Apps Indication:Non-smoker Start:21-Jan-2022 Instruction Type:Patient Education Patient Instructions Indication:Non-smoker Start:09-Nov-2021 Instruction Type:Provider Instructions for Treatment How to Access Health Informa tion Online using Patient Portal and [employer] Apps Indication:Non-smoker Start:09-Nov-2021 Instruction Type:Patient Education Patient Instructions Indication:Non-smoker Start:21-Aug-2021 Instruction Type:Provider Instructions for Treatment How to Access Health Informa tion Online using Patient Portal and [employer] Apps Indication:Non-smoker Start:21-Aug-2021 Instruction Type:Patient Education Patient Instructions Indication:BMI 45.0-49.9, adult Start:29-Jul-2021 Instruction Type:Provider Instructions for Treatment How to Access Health Informa tion Online using Patient Portal and [employer] Indication:BMI 45.0-49.9, adult Start:29-Jul-2021 Instruction Type:Patient Education Patient Instructions Indication:Hypothyroid Start:19-Jul-2021 Instruction Type:Provider Instructions for Treatment Patient Instructions Indication:Non-smoker Start:13-Jul-2021 Instruction Type:Provider Instructions for Treatment How to Access Health Informa tion Online using Patient Portal and [employer] Indication:Non-smoker Start:13-Jul-2021 Instruction Type:Patient Education Patient Instructions Indication:BMI 45.0-49.9, adult Start:25-May-2021 Instruction Type:Provider Instructions for Treatment How to Access Health Informa tion Online using Patient Portal and [employer] Indication:BMI 45.0-49.9, adult Start:25-May-2021 Instruction Type:Patient Education Patient Instructions Indication:Obesity, morbid (more than 100 lbs over ideal weight or BMI > 40) Start:18-Mar-2021 Instruction Type:Provider Instructions for Treatment How to Access Health Informa tion Online using Patient Portal and [employer] Indication:Obesity, morbid (more than 100 lbs over ideal weight or BMI > 40) Start:18-Mar-2021 Instruction Type:Patient Education Patient Instructions Indication:Non-smoker Start:25-Feb-2021 Instruction Type:Provider Instructions for Treatment How to Access Health Informa tion Online using Patient Portal and [employer] Apps Indication:Non-smoker Start:25-Feb-2021 Instruction Type:Patient Education obesity counseling Indication:LUIZA (obstructive sleep apnea) Start:12-Dec-2020 Instruction Type:Provider Instructions for Treatment Patient Instructions Indication:BMI 50.0-59.9, adult Start:12-Dec-2020 Instruction Type:Provider Instructions for Treatment How to Access Health Informa tion Online using Patient Portal and [employer] Apps Indication:BMI 50.0-59.9, adult Start:12-Dec-2020 Instruction Type:Patient Education Patient Instructions Indication:Non-smoker Start:04-Sep-2020 Instruction Type:Provider Instructions for Treatment How to Access Health Informa tion Online using Patient Portal and [employer] Apps Indication:Non-smoker Start:04-Sep-2020 Instruction Type:Patient Education How [...] tion Online using Patient Portal and [employer] Apps Indication:Non-smoker Start:29-Oct-2022 Instruction Type:Patient Education Patient Instructions Indication:Non-smoker Start:13-Oct-2022 Instruction Type:Provider Instructions for Treatment How to Access Health Informa tion Online using Patient Portal and [employer] Apps Indication:Non-smoker Start:13-Oct-2022 Instruction Type:Patient Education Patient Instructions Indication:Non-smoker Start:21-Jan-2022 Instruction Type:Provider Instructions for Treatment How to Access Health Informa tion Online using Patient Portal and [employer] Apps Indication:Non-smoker Start:21-Jan-2022 Instruction Type:Patient Education Patient Instructions Indication:Non-smoker Start:09-Nov-2021 Instruction Type:Provider Instructions for Treatment How to Access Health Informa tion Online using Patient Portal and [employer] Apps Indication:Non-smoker Start:09-Nov-2021 Instruction Type:Patient Education Patient Instructions Indication:Non-smoker Start:21-Aug-2021 Instruction Type:Provider Instructions for Treatment How to Access Health Informa tion Online using Patient Portal and [employer] Apps Indication:Non-smoker Start:21-Aug-2021 Instruction Type:Patient Education Patient Instructions Indication:BMI 45.0-49.9, adult Start:29-Jul-2021 Instruction Type:Provider Instructions for Treatment How to Access Health Informa tion Online using Patient Portal and [employer] Indication:BMI 45.0-49.9, adult Start:29-Jul-2021 Instruction Type:Patient Education Patient Instructions Indication:Hypothyroid Start:19-Jul-2021 Instruction Type:Provider Instructions for Treatment Patient Instructions Indication:Non-smoker Start:13-Jul-2021 Instruction Type:Provider Instructions for Treatment How to Access Health Informa tion Online using Patient Portal and [employer] Apps Indication:Non-smoker Start:13-Jul-2021 Instruction Type:Patient Education Patient Instructions Indication:BMI 45.0-49.9, adult Start:25-May-2021 Instruction Type:Provider Instructions for Treatment How to Access Health Informa tion Online using Patient Portal and [employer] Indication:BMI 45.0-49.9, adult Start:25-May-2021 Instruction Type:Patient Education Patient Instructions Indication:Obesity, morbid (more than 100 lbs over ideal weight or BMI > 40) Start:18-Mar-2021 Instruction Type:Provider Instructions for Treatment How to Access Health Informa tion Online using Patient Portal and [employer] Indication:Obesity, morbid (more than 100 lbs over ideal weight or BMI > 40) Start:18-Mar-2021 Instruction Type:Patient Education Patient Instructions Indication:Non-smoker Start:25-Feb-2021 Instruction Type:Provider Instructions for Treatment How to Access Health Informa tion Online using Patient Portal and [employer] Apps Indication:Non-smoker Start:25-Feb-2021 Instruction Type:Patient Education obesity counseling Indication:LUIZA (obstructive sleep apnea) Start:12-Dec-2020 Instruction Type:Provider Instructions for Treatment Patient Instructions Indication:BMI 50.0-59.9, adult Start:12-Dec-2020 Instruction Type:Provider Instructions for Treatment How to Access Health Informa tion Online using Patient Portal and [employer] Indication:BMI 50.0-59.9, adult Start:12-Dec-2020 Instruction Type:Patient Education Patient Instructions Indication:Non-smoker Start:04-Sep-2020 Instruction Type:Provider Instructions for Treatment How to Access Health Informa tion Online using Patient Portal and [employer] Indication:Non-smoker Start:04-Sep-2020 Instruction Type:Patient Education How [...] tion Online using Patient Portal and [employer] Indication:Non-smoker Start:29-Oct-2022 Instruction Type:Patient Education Patient Instructions Indication:Non-smoker Start:13-Oct-2022 Instruction Type:Provider Instructions for Treatment How to Access Health Informa tion Online using Patient Portal and [employer] Indication:Non-smoker Start:13-Oct-2022 Instruction Type:Patient Education Patient Instructions Indication:Non-smoker Start:21-Jan-2022 Instruction Type:Provider Instructions for Treatment How to Access Health Informa tion Online using Patient Portal and [employer] Apps Indication:Non-smoker Start:21-Jan-2022 Instruction Type:Patient Education Patient Instructions Indication:Non-smoker Start:09-Nov-2021 Instruction Type:Provider Instructions for Treatment How to Access Health Informa tion Online using Patient Portal and [employer] Apps Indication:Non-smoker Start:09-Nov-2021 Instruction Type:Patient Education Patient Instructions Indication:Non-smoker Start:21-Aug-2021 Instruction Type:Provider Instructions for Treatment How to Access Health Informa tion Online using Patient Portal and [employer] Apps Indication:Non-smoker Start:21-Aug-2021 Instruction Type:Patient Education Patient Instructions Indication:BMI 45.0-49.9, adult Start:29-Jul-2021 Instruction Type:Provider Instructions for Treatment How to Access Health Informa tion Online using Patient Portal and [employer] Apps Indication:BMI 45.0-49.9, adult Start:29-Jul-2021 Instruction Type:Patient Education Patient Instructions Indication:Hypothyroid Start:19-Jul-2021 Instruction Type:Provider Instructions for Treatment Patient Instructions Indication:Non-smoker Start:13-Jul-2021 Instruction Type:Provider Instructions for Treatment How to Access Health Informa tion Online using Patient Portal and [employer] Apps Indication:Non-smoker Start:13-Jul-2021 Instruction Type:Patient Education Patient Instructions Indication:BMI 45.0-49.9, adult Start:25-May-2021 Instruction Type:Provider Instructions for Treatment How to Access Health Informa tion Online using Patient Portal and [employer] Indication:BMI 45.0-49.9, adult Start:25-May-2021 Instruction Type:Patient Education Patient Instructions Indication:Obesity, morbid (more than 100 lbs over ideal weight or BMI > 40) Start:18-Mar-2021 Instruction Type:Provider Instructions for Treatment How to Access Health Informa tion Online using Patient Portal and [employer] Apps Indication:Obesity, morbid (more than 100 lbs over ideal weight or BMI > 40) Start:18-Mar-2021 Instruction Type:Patient Education Patient Instructions Indication:Non-smoker Start:25-Feb-2021 Instruction Type:Provider Instructions for Treatment How to Access Health Informa tion Online using Patient Portal and [employer] Apps Indication:Non-smoker Start:25-Feb-2021 Instruction Type:Patient Education obesity counseling Indication:LUIZA (obstructive sleep apnea) Start:12-Dec-2020 Instruction Type:Provider Instructions for Treatment Patient Instructions Indication:BMI 50.0-59.9, adult Start:12-Dec-2020 Instruction Type:Provider Instructions for Treatment How to Access Health Informa tion Online using Patient Portal and [employer] Indication:BMI 50.0-59.9, adult Start:12-Dec-2020 Instruction Type:Patient Education Patient Instructions Indication:Non-smoker Start:04-Sep-2020 Instruction Type:Provider Instructions for Treatment How to Access Health Informa tion Online using Patient Portal and [employer] Indication:Non-smoker Start:04-Sep-2020 Instruction Type:Patient Education How [...] tion Online using Patient Portal and [employer] Apps Indication:Non-smoker Start:29-Oct-2022 Instruction Type:Patient Education Patient Instructions Indication:Non-smoker Start:13-Oct-2022 Instruction Type:Provider Instructions for Treatment How to Access Health Informa tion Online using Patient Portal and [employer] Apps Indication:Non-smoker Start:13-Oct-2022 Instruction Type:Patient Education Patient Instructions Indication:Non-smoker Start:21-Jan-2022 Instruction Type:Provider Instructions for Treatment How to Access Health Informa tion Online using Patient Portal and [employer] Apps Indication:Non-smoker Start:21-Jan-2022 Instruction Type:Patient Education Patient Instructions Indication:Non-smoker Start:09-Nov-2021 Instruction Type:Provider Instructions for Treatment How to Access Health Informa tion Online using Patient Portal and [employer] Apps Indication:Non-smoker Start:09-Nov-2021 Instruction Type:Patient Education Patient Instructions Indication:Non-smoker Start:21-Aug-2021 Instruction Type:Provider Instructions for Treatment How to Access Health Informa tion Online using Patient Portal and [employer] Apps Indication:Non-smoker Start:21-Aug-2021 Instruction Type:Patient Education Patient Instructions Indication:BMI 45.0-49.9, adult Start:29-Jul-2021 Instruction Type:Provider Instructions for Treatment How to Access Health Informa tion Online using Patient Portal and [employer] Indication:BMI 45.0-49.9, adult Start:29-Jul-2021 Instruction Type:Patient Education Patient Instructions Indication:Hypothyroid Start:19-Jul-2021 Instruction Type:Provider Instructions for Treatment Patient Instructions Indication:Non-smoker Start:13-Jul-2021 Instruction Type:Provider Instructions for Treatment How to Access Health Informa tion Online using Patient Portal and [employer] Apps Indication:Non-smoker Start:13-Jul-2021 Instruction Type:Patient Education Patient Instructions Indication:BMI 45.0-49.9, adult Start:25-May-2021 Instruction Type:Provider Instructions for Treatment How to Access Health Informa tion Online using Patient Portal and [employer] Indication:BMI 45.0-49.9, adult Start:25-May-2021 Instruction Type:Patient Education Patient Instructions Indication:Obesity, morbid (more than 100 lbs over ideal weight or BMI > 40) Start:18-Mar-2021 Instruction Type:Provider Instructions for Treatment How to Access Health Informa tion Online using Patient Portal and [employer] Indication:Obesity, morbid (more than 100 lbs over ideal weight or BMI > 40) Start:18-Mar-2021 Instruction Type:Patient Education Patient Instructions Indication:Non-smoker Start:25-Feb-2021 Instruction Type:Provider Instructions for Treatment How to Access Health Informa tion Online using Patient Portal and [employer] Indication:Non-smoker Start:25-Feb-2021 Instruction Type:Patient Education obesity counseling Indication:LUIZA (obstructive sleep apnea) Start:12-Dec-2020 Instruction Type:Provider Instructions for Treatment Patient Instructions Indication:BMI 50.0-59.9, adult Start:12-Dec-2020 Instruction Type:Provider Instructions for Treatment How to Access Health Informa tion Online using Patient Portal and [employer] Indication:BMI 50.0-59.9, adult Start:12-Dec-2020 Instruction Type:Patient Education Patient Instructions Indication:Non-smoker Start:04-Sep-2020 Instruction Type:Provider Instructions for Treatment How to Access Health Informa tion Online using Patient Portal and [employer] Apps Indication:Non-smoker Start:04-Sep-2020 Instruction Type:Patient Education How [...] tion Online using Patient Portal and [employer] Apps Indication:Obesity, morbid (more than 100 lbs over ideal weight or BMI > 40) Start:16-Feb-2023 Instruction Type:Patient Education Patient Instructions Indication:Obesity, morbid (more than 100 lbs over ideal weight or BMI > 40) Start:16-Feb-2023 Instruction Type:Provider Instructions for Treatment Patient Instructions Indication:Non-smoker Start:29-Oct-2022 Instruction Type:Provider Instructions for Treatment How to Access Health Informa tion Online using Patient Portal and [employer] Apps Indication:Non-smoker Start:29-Oct-2022 Instruction Type:Patient Education Patient Instructions Indication:Non-smoker Start:13-Oct-2022 Instruction Type:Provider Instructions for Treatment How to Access Health Informa tion Online using Patient Portal and [employer] Apps Indication:Non-smoker Start:13-Oct-2022 Instruction Type:Patient Education Patient Instructions Indication:Non-smoker Start:21-Jan-2022 Instruction Type:Provider Instructions for Treatment How to Access Health Informa tion Online using Patient Portal and [employer] Apps Indication:Non-smoker Start:21-Jan-2022 Instruction Type:Patient Education Patient Instructions Indication:Non-smoker Start:09-Nov-2021 Instruction Type:Provider Instructions for Treatment How to Access Health Informa tion Online using Patient Portal and [employer] Apps Indication:Non-smoker Start:09-Nov-2021 Instruction Type:Patient Education Patient Instructions Indication:Non-smoker Start:21-Aug-2021 Instruction Type:Provider Instructions for Treatment How to Access Health Informa tion Online using Patient Portal and [employer] Apps Indication:Non-smoker Start:21-Aug-2021 Instruction Type:Patient Education Patient Instructions Indication:BMI 45.0-49.9, adult Start:29-Jul-2021 Instruction Type:Provider Instructions for Treatment How to Access Health Informa tion Online using Patient Portal and [employer] Apps Indication:BMI 45.0-49.9, adult Start:29-Jul-2021 Instruction Type:Patient Education Patient Instructions Indication:Hypothyroid Start:19-Jul-2021 Instruction Type:Provider Instructions for Treatment Patient Instructions Indication:Non-smoker Start:13-Jul-2021 Instruction Type:Provider Instructions for Treatment How to Access Health Informa tion Online using Patient Portal and [employer] Apps Indication:Non-smoker Start:13-Jul-2021 Instruction Type:Patient Education Patient Instructions Indication:BMI 45.0-49.9, adult Start:25-May-2021 Instruction Type:Provider Instructions for Treatment How to Access Health Informa tion Online using Patient Portal and [employer] Apps Indication:BMI 45.0-49.9, adult Start:25-May-2021 Instruction Type:Patient Education Patient Instructions Indication:Obesity, morbid (more than 100 lbs over ideal weight or BMI > 40) Start:18-Mar-2021 Instruction Type:Provider Instructions for Treatment How to Access Health Informa tion Online using Patient Portal and [employer] Apps Indication:Obesity, morbid (more than 100 lbs over ideal weight or BMI > 40) Start:18-Mar-2021 Instruction Type:Patient Education Patient Instructions Indication:Non-smoker Start:25-Feb-2021 Instruction Type:Provider Instructions for Treatment How to Access Health Informa tion Online using Patient Portal and [employer] Apps Indication:Non-smoker Start:25-Feb-2021 Instruction Type:Patient Education obesity counseling Indication:LUIZA (obstructive sleep apnea) Start:12-Dec-2020 Instruction Type:Provider Instructions for Treatment Patient Instructions Indication:BMI 50.0-59.9, adult Start:12-Dec-2020 Instruction Type:Provider Instructions for Treatment How to Access Health Informa tion Online using Patient Portal and [employer] Apps Indication:BMI 50.0-59.9, adult Start:12-Dec-2020 Instruction Type:Patient Education Patient Instructions Indication:Non-smoker Start:04-Sep-2020 Instruction Type:Provider Instructions for Treatment How to Access Health Informa tion Online using Patient Portal and [employer] Apps Indication:Non-smoker Start:04-Sep-2020 Instruction Type:Patient Education How [...] tion Online using Patient Portal and [employer] Apps Indication:Obesity, morbid (more than 100 lbs over ideal weight or BMI > 40) Start:16-Feb-2023 Instruction Type:Patient Education Patient Instructions Indication:Obesity, morbid (more than 100 lbs over ideal weight or BMI > 40) Start:16-Feb-2023 Instruction Type:Provider Instructions for Treatment Patient Instructions Indication:Non-smoker Start:29-Oct-2022 Instruction Type:Provider Instructions for Treatment How to Access Health Informa tion Online using Patient Portal and [employer] Apps Indication:Non-smoker Start:29-Oct-2022 Instruction Type:Patient Education Patient Instructions Indication:Non-smoker Start:13-Oct-2022 Instruction Type:Provider Instructions for Treatment How to Access Health Informa tion Online using Patient Portal and [employer] Apps Indication:Non-smoker Start:13-Oct-2022 Instruction Type:Patient Education Patient Instructions Indication:Non-smoker Start:21-Jan-2022 Instruction Type:Provider Instructions for Treatment How to Access Health Informa tion Online using Patient Portal and [employer] Apps Indication:Non-smoker Start:21-Jan-2022 Instruction Type:Patient Education Patient Instructions Indication:Non-smoker Start:09-Nov-2021 Instruction Type:Provider Instructions for Treatment How to Access Health Informa tion Online using Patient Portal and [employer] Apps Indication:Non-smoker Start:09-Nov-2021 Instruction Type:Patient Education Patient Instructions Indication:Non-smoker Start:21-Aug-2021 Instruction Type:Provider Instructions for Treatment How to Access Health Informa tion Online using Patient Portal and [employer] Apps Indication:Non-smoker Start:21-Aug-2021 Instruction Type:Patient Education Patient Instructions Indication:BMI 45.0-49.9, adult Start:29-Jul-2021 Instruction Type:Provider Instructions for Treatment How to Access Health Informa tion Online using Patient Portal and [employer] Apps Indication:BMI 45.0-49.9, adult Start:29-Jul-2021 Instruction Type:Patient Education Patient Instructions Indication:Hypothyroid Start:19-Jul-2021 Instruction Type:Provider Instructions for Treatment Patient Instructions Indication:Non-smoker Start:13-Jul-2021 Instruction Type:Provider Instructions for Treatment How to Access Health Informa tion Online using Patient Portal and [employer] Apps Indication:Non-smoker Start:13-Jul-2021 Instruction Type:Patient Education Patient Instructions Indication:BMI 45.0-49.9, adult Start:25-May-2021 Instruction Type:Provider Instructions for Treatment How to Access Health Informa tion Online using Patient Portal and [employer] Apps Indication:BMI 45.0-49.9, adult Start:25-May-2021 Instruction Type:Patient Education Patient Instructions Indication:Obesity, morbid (more than 100 lbs over ideal weight or BMI > 40) Start:18-Mar-2021 Instruction Type:Provider Instructions for Treatment How to Access Health Informa tion Online using Patient Portal and [employer] Apps Indication:Obesity, morbid (more than 100 lbs over ideal weight or BMI > 40) Start:18-Mar-2021 Instruction Type:Patient Education Patient Instructions Indication:Non-smoker Start:25-Feb-2021 Instruction Type:Provider Instructions for Treatment How to Access Health Informa tion Online using Patient Portal and [employer] Apps Indication:Non-smoker Start:25-Feb-2021 Instruction Type:Patient Education obesity counseling Indication:LUIZA (obstructive sleep apnea) Start:12-Dec-2020 Instruction Type:Provider Instructions for Treatment Patient Instructions Indication:BMI 50.0-59.9, adult Start:12-Dec-2020 Instruction Type:Provider Instructions for Treatment How to Access Health Informa tion Online using Patient Portal and [employer] Apps Indication:BMI 50.0-59.9, adult Start:12-Dec-2020 Instruction Type:Patient Education Patient Instructions Indication:Non-smoker Start:04-Sep-2020 Instruction Type:Provider Instructions for Treatment How to Access Health Informa tion Online using Patient Portal and [employer] Apps Indication:Non-smoker Start:04-Sep-2020 Instruction Type:Patient Education How [...] Informa tion Online using Patient Portal and [employer] Republican Apps Indication:Obesity, morbid (more than 100 lbs over ideal weight or BMI > 40) Start:16-Feb-2023 Instruction Type:Patient Education Patient Instructions Indication:Obesity, morbid (more than 100 lbs over ideal weight or BMI > 40) Start:16-Feb-2023 Instruction Type:Provider Instructions for Treatment Patient Instructions Indication:Non-smoker Start:29-Oct-2022 Instruction Type:Provider Instructions for Treatment How to Access Health Informa tion Online using Patient Portal and [employer] Republican Apps Indication:Non-smoker Start:29-Oct-2022 Instruction Type:Patient Education Patient Instructions Indication:Non-smoker Start:13-Oct-2022 Instruction Type:Provider Instructions for Treatment How to Access Health Informa tion Online using Patient Portal and [employer] Republican Apps Indication:Non-smoker Start:13-Oct-2022 Instruction Type:Patient Education Patient Instructions Indication:Non-smoker Start:21-Jan-2022 Instruction Type:Provider Instructions for Treatment How to Access Health Informa tion Online using Patient Portal and [employer] Apps Indication:Non-smoker Start:21-Jan-2022 Instruction Type:Patient Education Patient Instructions Indication:Non-smoker Start:09-Nov-2021 Instruction Type:Provider Instructions for Treatment How to Access Health Informa tion Online using Patient Portal and [employer] Republican Apps Indication:Non-smoker Start:09-Nov-2021 Instruction Type:Patient Education Patient Instructions Indication:Non-smoker Start:21-Aug-2021 Instruction Type:Provider Instructions for Treatment How to Access Health Informa tion Online using Patient Portal and [employer] Apps Indication:Non-smoker Start:21-Aug-2021 Instruction Type:Patient Education Patient Instructions Indication:BMI 45.0-49.9, adult Start:29-Jul-2021 Instruction Type:Provider Instructions for Treatment How to Access Health Informa tion Online using Patient Portal and [employer] Apps Indication:BMI 45.0-49.9, adult Start:29-Jul-2021 Instruction Type:Patient Education Patient Instructions Indication:Hypothyroid Start:19-Jul-2021 Instruction Type:Provider Instructions for Treatment Patient Instructions Indication:Non-smoker Start:13-Jul-2021 Instruction Type:Provider Instructions for Treatment How to Access Health Informa tion Online using Patient Portal and [employer] Apps Indication:Non-smoker Start:13-Jul-2021 Instruction Type:Patient Education Patient Instructions Indication:BMI 45.0-49.9, adult Start:25-May-2021 Instruction Type:Provider Instructions for Treatment How to Access Health Informa tion Online using Patient Portal and [employer] Apps Indication:BMI 45.0-49.9, adult Start:25-May-2021 Instruction Type:Patient Education Patient Instructions Indication:Obesity, morbid (more than 100 lbs over ideal weight or BMI > 40) Start:18-Mar-2021 Instruction Type:Provider Instructions for Treatment How to Access Health Informa tion Online using Patient Portal and [employer] Apps Indication:Obesity, morbid (more than 100 lbs over ideal weight or BMI > 40) Start:18-Mar-2021 Instruction Type:Patient Education Patient Instructions Indication:Non-smoker Start:25-Feb-2021 Instruction Type:Provider Instructions for Treatment How to Access Health Informa tion Online using Patient Portal and [employer] Apps Indication:Non-smoker Start:25-Feb-2021 Instruction Type:Patient Education obesity counseling Indication:LUIZA (obstructive sleep apnea) Start:12-Dec-2020 Instruction Type:Provider Instructions for Treatment Patient Instructions Indication:BMI 50.0-59.9, adult Start:12-Dec-2020 Instruction Type:Provider Instructions for Treatment How to Access Health Informa tion Online using Patient Portal and [employer] Apps Indication:BMI 50.0-59.9, adult Start:12-Dec-2020 Instruction Type:Patient Education Patient Instructions Indication:Non-smoker Start:04-Sep-2020 Instruction Type:Provider Instructions for Treatment How to Access Health Informa tion Online using Patient Portal and [employer] Apps Indication:Non-smoker Start:04-Sep-2020 Instruction Type:Patient Education How [...] Informa tion Online using Patient Portal and [employer] Republican Apps Indication:Obesity, morbid (more than 100 lbs over ideal weight or BMI > 40) Start:16-Feb-2023 Instruction Type:Patient Education Patient Instructions Indication:Obesity, morbid (more than 100 lbs over ideal weight or BMI > 40) Start:16-Feb-2023 Instruction Type:Provider Instructions for Treatment Patient Instructions Indication:Non-smoker Start:29-Oct-2022 Instruction Type:Provider Instructions for Treatment How to Access Health Informa tion Online using Patient Portal and [employer] Republican Apps Indication:Non-smoker Start:29-Oct-2022 Instruction Type:Patient Education Patient Instructions Indication:Non-smoker Start:13-Oct-2022 Instruction Type:Provider Instructions for Treatment How to Access Health Informa tion Online using Patient Portal and [employer] Republican Apps Indication:Non-smoker Start:13-Oct-2022 Instruction Type:Patient Education Patient Instructions Indication:Non-smoker Start:21-Jan-2022 Instruction Type:Provider Instructions for Treatment How to Access Health Informa tion Online using Patient Portal and [employer] Apps Indication:Non-smoker Start:21-Jan-2022 Instruction Type:Patient Education Patient Instructions Indication:Non-smoker Start:09-Nov-2021 Instruction Type:Provider Instructions for Treatment How to Access Health Informa tion Online using Patient Portal and [employer] Republican Apps Indication:Non-smoker Start:09-Nov-2021 Instruction Type:Patient Education Patient Instructions Indication:Non-smoker Start:21-Aug-2021 Instruction Type:Provider Instructions for Treatment How to Access Health Informa tion Online using Patient Portal and [employer] Republican Apps Indication:Non-smoker Start:21-Aug-2021 Instruction Type:Patient Education Patient Instructions Indication:BMI 45.0-49.9, adult Start:29-Jul-2021 Instruction Type:Provider Instructions for Treatment How to Access Health Informa tion Online using Patient Portal and [employer] Apps Indication:BMI 45.0-49.9, adult Start:29-Jul-2021 Instruction Type:Patient Education Patient Instructions Indication:Hypothyroid Start:19-Jul-2021 Instruction Type:Provider Instructions for Treatment Patient Instructions Indication:Non-smoker Start:13-Jul-2021 Instruction Type:Provider Instructions for Treatment How to Access Health Informa tion Online using Patient Portal and 3rd Republican Apps Indication:Non-smoker Start:13-Jul-2021 Instruction Type:Patient Education Patient Instructions Indication:BMI 45.0-49.9, adult Start:25-May-2021 Instruction Type:Provider Instructions for Treatment How to Access Health Informa tion Online using Patient Portal and [employer] Apps Indication:BMI 45.0-49.9, adult Start:25-May-2021 Instruction Type:Patient Education Patient Instructions Indication:Obesity, morbid (more than 100 lbs over ideal weight or BMI > 40) Start:18-Mar-2021 Instruction Type:Provider Instructions for Treatment How to Access Health Informa tion Online using Patient Portal and [employer] Apps Indication:Obesity, morbid (more than 100 lbs over ideal weight or BMI > 40) Start:18-Mar-2021 Instruction Type:Patient Education Patient Instructions Indication:Non-smoker Start:25-Feb-2021 Instruction Type:Provider Instructions for Treatment How to Access Health Informa tion Online using Patient Portal and [employer] Apps Indication:Non-smoker Start:25-Feb-2021 Instruction Type:Patient Education obesity counseling Indication:LUIZA (obstructive sleep apnea) Start:12-Dec-2020 Instruction Type:Provider Instructions for Treatment Patient Instructions Indication:BMI 50.0-59.9, adult Start:12-Dec-2020 Instruction Type:Provider Instructions for Treatment How to Access Health Informa tion Online using Patient Portal and [employer] Republican Apps Indication:BMI 50.0-59.9, adult Start:12-Dec-2020 Instruction Type:Patient Education Patient Instructions Indication:Non-smoker Start:04-Sep-2020 Instruction Type:Provider Instructions for Treatment How to Access Health Informa tion Online using Patient Portal and [employer] Apps Indication:Non-smoker Start:04-Sep-2020 Instruction Type:Patient Education How [...] Informa tion Online using Patient Portal and [email or web address] Apps Indication:Non-smoker Start:04-Sep-2020 Instruction Type:Patient Education How [...] tion Online using Patient Portal and [employer] Apps Indication:Non-smoker Start:04-Sep-2020 Instruction Type:Patient Education How [...] of Plaquenil Procedures CONSULT TO OPHTHALMOLOGY OFFICE/OUTPATIENT [facility] 60-74 MINUTES Indra Metcalf MD [address] [facility] [place] [address] Referral ID Status Reason Start Date Expiration Date Visits Requested Visits Authorized [id number] Authorized PCP Requested Referral 11/17/2021 11/17/2022 1 1 Specialty Diagnoses / Procedures Referred By Contac t Referred To Contact XR IMAGING Diagnoses Postmenopausal osteoporosis of multiple sites Procedures DXA-FOREARM SKELETON DXA BONE DENSITY STUDY 1/>SITES Indra Henry MD [address] [place] [address] Xr Imaging Referral ID Status Reason Start Date Expiration Date Visits Requested Visits Authorized [id number] Authorized Auto-Generat ed Referral 11/17/2021 12/17/2022 1 1 Specialty Diagnoses / Procedures Referred By Contac t Referred To Contact Cardiology Diagnoses Chronic congestive heart failure, unspecified heart failure type (HCC) Procedures CONSULT TO CARDIOLOGY OFFICE/OUTPATIENT [facility] 60-74 MINUTES Indra Metcalf MD [address] [place] [address] Referral ID Status Reason Start Date Expiration Date Visits Requested Visits Authorized [id number] Authorized PCP Requested Referral 02/25/2023 02/25/2024 1 1 Specialty Diagnoses / Procedures Referred By Contac t Referred To Contact XR IMAGING Diagnoses Postmenopausal osteoporosis of multiple sites Procedures DXA-FOREARM SKELETON DXA BONE DENSITY STUDY 1/>SITES APPENDICIndra Biggs MD [address] [place] [address] [place] [address] Referral ID Status Reason Start Date Expiration Date Visits Requested Visits Authorized [id number] Authorized Auto-Generat ed Referral 02/25/2023 03/26/2024 1 1 Additional Source Comments INFORMATION SOURCE (unrecogn ized section and content) DATE CREATED AUTHOR AUTHOR'S ORGANIZ ATION 11/06/2021 [facility] DATE CREATED AUTHOR AUTHOR'S ORGANIZ ATION 10/12/[address] DATE CREATED AUTHOR AUTHOR'S ORGANIZ ATION 06/14/2023 [facility] Source Comments (unrecognize d section and content) In the event this informatio n is protected by the Federal Confidentiality of Alcohol and Drug Abuse Patient Records regulations: The Federal rules restrict any use of the information to criminally investigate or prosecute any alcohol or drug abuse patient.[facility] the event this information is protected by the Federal Confidentiality of Alcohol and Drug Abuse Patient Records regulations: The Federal rules restrict any use of the information to criminally investigate or prosecute any alcohol or drug abuse patient.[facility] the event this information is protected by the Federal Confidentiality of Alcohol and Drug Abuse Patient Records regulations: The Federal rules restrict any use of the information to criminally investigate or prosecute any alcohol or drug abuse patient.[facility] the event this information is protected by the Federal Confidentiality of Alcohol and Drug Abuse Patient Records regulations: The Federal rules restrict any use of the information to criminally investigate or prosecute any alcohol or drug abuse patient.[facility] the event this information is protected by the Federal Confidentiality of Alcohol and Drug Abuse Patient Records regulations: The Federal rules restrict any use of the information to criminally investigate or prosecute any alcohol or drug abuse patient.[facility] the event this information is protected by the Federal Confidentiality of Alcohol and Drug Abuse Patient Records regulations: The Federal rules restrict any use of the information to criminally investigate or prosecute any alcohol or drug abuse patient.[facility] the event this information is protected by the Federal Confidentiality of Alcohol and Drug Abuse Patient Records regulations: The Federal rules restrict any use of the information to criminally investigate or prosecute any alcohol or drug abuse patient.[facility] the event this information is protected by the Federal Confidentiality of Alcohol and Drug Abuse Patient Records regulations: The Federal rules restrict any use of the information to criminally investigate or prosecute any alcohol or drug abuse patient.[facility] Reason for Visit (unrecogniz ed section and content) Reason Comments Results Reason Comments Follow Up currently off mtx 1 month d/t bladder infection Pain all over more pain , right shoulder, fingers 6/10; ache Reason Onset Date Comments Refill Request 09/27/2022 Reason Comments Pain Ongoing bi-lateral f tara pain. Refill Request Care Teams (unrecognized sec tion and content) Sorting [employer] Folding Supervisor Relationship Specialty Start Date End Date Polina Perrin DO [address] [place] [address] PCP - General Internal Medicine 04/15/20 [employer] Folding Supervisor Relationship Specialty Start Date End Date Polina Perrin DO [address], [place] [phone] PCP - General Internal Medicine 04/15/20 Sorting And Folding Supervisor Relationship Specialty Start Date End Date Polina Perrin DO [address] [facility] [address], [place] [phone] PCP - General Internal Medicine 04/15/20 Sorting And Folding Supervisor Relationship Specialty Start Date End Date Polina Perrin DO [address] [facility] [address], [place] [id number] PCP - General Internal Medicine 04/15/20 Sorting And Folding Supervisor Relationship Specialty Start Date End Date Polina Perrin DO Cher[place] [address] [facility] [address], [place] [phone] PCP - General Internal Medicine 04/15/20 Sorting And Folding Supervisor Relationship Specialty Start Date End Date Polina Perrin DO [place] [address] [facility] [address], [place] [phone] PCP - General Internal Medicine 04/15/20 Sorting And Folding Supervisor Relationship Specialty Start Date End Date Polina Perrin Cher[place] [address] [facility] [address] [place] [address] PCP - General Internal Medicine [...] BE BASED ON THE PRIMARY CLINICAL RECORDS. [employer] [facility]. provides no warranty or guarantee of the accuracy or completeness of information in this document.
--- NOTE | 2023-07-01 02:55 | CPS ---
Pt opting to wear oxygen instead of CPAP
[2023-07-01] MEDS: Thyroid 60 MG Tablet 90 MG PO (05:32)
[2023-07-01] MEDS: Nystatin Powder 15gm Bottle 1 APPLIC TOPICAL ×3 (05:33→21:40)
[2023-07-01 06:17] LABS: Absolute Lymphocyte Count 1.21 X10^3/uL (0.83-4.51); Absolute Neutrophil Count 3.4 X10^3/uL (2.0-7.7); Basophil# 0.02 X10^3/uL; Basophil% 0.4 % (0-1); Eosinophil# 0.08 X10^3/uL; Eosinophils% 1.5 % (0-5); Hematocrit 31.5 % (37-47); Hemoglobin 10.3 g/dL (12.0-15.0); Lymphocyte # 1.21 X10^3/ul (0.83-4.51); Mean Corp Hgb Conc 32.7 g/dL (32-36); Mean Corpuscular Hgb 29.8 pg (27.0-32.0); Mean Platelet Vol. 9.3 fl (6.2-12.0); Monocyte# 0.54 X10^3/uL; Monocyte% 10.3 % (0-10); NRBC Flagged by Analyzer 0 % (0-5); Neutrophil # 3.38 X10^3/uL (2.7-7.7); Neutrophil % 64.4 % (47-70); Platelet Count 163 K/mm3 (150-450); RBC Distribution Width CV 15.2 % (11.6-14.6); RBC Distribution Width SD 50.4 fl (35.1-43.9); Red Blood Count 3.46 M/mm3 (4.2-5.4); White Blood Count 5.3 K/mm3 (4.4-11.0)
[2023-07-01 06:51] LABS: AST(SGOT) 14 U/L (15-37); Alanine Aminotransfer ALT/SGPT 11 U/L (13-56); Albumin, Serum 2.9 g/dL (3.2-5.0); Alkaline Phosphatase 66 U/L (45-117); Anion Gap 3 (5-15); BUN 13 mg/dL (7-18); BUN/Creat Ratio 20.2 RATIO (10-20); Calcium,Total 8.1 mg/dL (8.5-10.1); Chloride 110 mmol/L (98-107); Creatinine, Serum 0.64 mg/dL (0.55-1.02); EST Glomerular Filtration Rate 97 mL/min (>60); Est Glom Filt Rate - Afr Amer 118 mL/min (>60); Estimated Creatinine Clearance 78.55 ml/min; Globulin 2.9 g/dL (2.2-4.2); Glucose 92 mg/dL (74-106); Magnesium 2.3 mg/dL (1.6-2.6); Phosphorus 3.5 mg/dL (2.5-4.9); Protein, Total 5.8 g/dL (6.4-8.2); Sodium Level 140 mmol/L (136-145); Thyroid Stim Hormone (TSH) 2.26 uIU/mL (0.358-3.74)
--- NOTE | 2023-07-01 07:10 | PN.HOSP_ITS ---
Reason for Visit Reason for Visit: Diagnoses Anemia, unspecified (07/01/23) Encephalopathy, unspecified (07/01/23) Urinary tract infection, site not specified (07/01/23) Weakness (07/01/23) Other malaise (07/01/23) Hyperglycemia, unspecified (07/01/23) Objective Data Objective Data Vital Signs: Vital Signs Temp Pulse Resp BP Pulse Ox O2 Del Method 36.4 C L 67 18 122/57 H 97 Room Air 07/01/23 05:34 07/01/23 02:23 07/01/23 02:23 07/01/23 02:23 07/01/23 02:23 07/01/23 02:25 Oxygen Delivery Method Room Air Weight: 116.573 kg Body Mass Index (BMI) 51.9 Intake & Output: Intake and Output for Last 24 Hours 06/29/23 06/30/23 07/01/23 23:59 23:59 23:59 Intake Total 1049 / 1049 Balance 1049 / 1049 Lab / Micro Data 07/01/23 05:25 07/01/23 05:25 Labs: Laboratory Results - last 24 hr 06/30/23 21:29: Urine Color Yellow, Urine Clarity Clear, Urine pH 7.0, Ur Specific [place] 1.010, Urine Protein Negative, Urine Glucose (UA) Normal, Urine Ketones Negative, Urine Occult Blood 25 H, Urine Nitrite Positive H, Urine Bilirubin Negative, Urine Urobilinogen Normal, Ur Leukocyte Esterase 500 H, Urine RBC 0-5 SEEN, Urine WBC 10-25 SEEN, Ur Squamous Epith Cells 0 SEEN, Urine Bacteria 2+, Urine Mucus 0 SEEN 06/30/23 23:05: WBC 7.2, RBC 3.70 L, Hgb 11.1 L, Hct 33.9 L, MCV 91.6, MCH 30.0, MCHC 32.7, RDW Std Deviation 49.9 H, RDW Coeff of Noe 15.0 H, Plt Count 169, MPV 9.0, Immature Gran % (Auto) 0.400, Neut % (Auto) 78.7 H, Lymph % (Auto) 11.8 L, Bradford % (Auto) 7.4, Eos % (Auto) 1.3, Baso % (Auto) 0.4, Absolute Neuts (auto) 5.7, Absolute Lymphs (auto) 0.85, Nucleated RBC % 0, Sodium 140, Potassium 3.6, Chloride 109 H, Carbon Dioxide 26.0, Anion Gap 5, BUN 17, Creatinine 0.83, Estim Creat Clear Calc 76.83, Est GFR (MDRD) Af Amer 88, Est GFR (MDRD) Non-Af 73, BUN/Creatinine Ratio 20.5 H, Glucose 127 H, Lactic Acid 1.1, Calcium 8.7 07/01/23 05:25: WBC 5.3, RBC 3.46 L, Hgb 10.3 L, Hct 31.5 L, MCV 91.0, MCH 29.8, MCHC 32.7, RDW Std Deviation 50.4 H, RDW Coeff of Noe 15.2 H, Plt Count 163, MPV 9.3, Immature Gran % (Auto) 0.400, Neut % (Auto) 64.4, Lymph % (Auto) 23.0, Bradford % (Auto) 10.3 H, Eos % (Auto) 1.5, Baso % (Auto) 0.4, Absolute Neuts (auto) 3.4, Absolute Lymphs (auto) 1.21, Nucleated RBC % 0, Sodium 140, Potassium 3.0 L, Chloride 110 H, Carbon Dioxide 27.0, Anion Gap 3 L, BUN 13, Creatinine 0.64, Estim Creat Clear Calc 78.55, Est GFR (MDRD) Af Amer 118, Est GFR (MDRD) Non-Af 97, BUN/Creatinine Ratio 20.2 H, Glucose 92, Calcium 8.1 L, Phosphorus 3.5, Magnesium 2.3, Total Bilirubin 0.70, AST 14 L, ALT 11 L, Alkaline Phosphatase 66, Total Protein 5.8 L, Albumin 2.9 L, Globulin 2.9, Albumin/Globulin Ratio 1.0, TSH 2.26 Micro: Microbiology 06/30/23 21:29 Mucosa - Nose SARS-CoV-2, Influenza & RSV (PCR) - Final Radiography Diagnostic Testing: Radiology Impression Chest X-Ray 06/30/23 21:50 IMPRESSION: No acute disease. Electronically Signed: Lucio Mosquera MD at 22:07 EST , Assessment & Plan Assessment/Plan (1) Acute encephalopathy: (2) UTI (urinary tract infection): (3) Debility: (4) Generalized weakness: (5) Anemia: (6) Hyperglycemia: PLAN: Plan urinary tract infection * Continue CTX. Follow up cx. Acute metabolic encephalopathy * 2/2 UTI Debility * 2/2 UTI * PT OT Chronic conditions: * Anemia: stable. * LUIZA-Patient uses CPAP at baseline-Compliance seems to overall not be great at 53% with last documentation-Will order CPAP with 14 cm of water per pulmonary notes * Hypertension-Continue home metoprolol with hold parameters * Mitral valve stenosis-Continue outpatient [id number] recent echocardiogram done in September 2022 showed EF of 60% with mild to moderate annular calcification and stable mitral valve stenosis * Bilateral carotid artery stenosis-Continue home aspirin-Most recent carotid ultrasound from 11/24/2022 shows a moderate at 50 to 69% stenosis and less than 50% on the left side which is unchanged from previous * Rheumatoid arthritis-Continue home hydroxychloroquine-Hold home methotrexate and restart at discharge * Hypothyroidism-Continue [place] Thyroid. TSH WNL. * Morbid obesity-BMI is 53.1-Complicates treatment, prognosis, outcomes- Recommend weight loss next DVT prophylaxis -Lovenox 40 mg SQ twice daily CODE STATUS Full code Notified by nursing that the patient did not want to see me as her physician. She reported to the nurse that I was apparently mean to her in the past. Discussed with Dr. Mitchell who will be assuming her care moving forward.
[2023-07-01] MEDS: Aspirin E.C. 81 MG Tablet 243 MG PO (08:47)
[2023-07-01] MEDS: Hydroxychloroquine 200 MG Tablet PO ×2 (08:47→16:59)
[2023-07-01] MEDS: Multivitamins,Therapeutic Tablet 1 TABLET PO (08:47)
[2023-07-01] MEDS: Folic Acid 1 MG Tablet 2 MG PO (08:47)
[2023-07-01] MEDS: Metoprolol Tartrate 25 MG Tablet 12.5 MG PO ×2 (08:47→21:41)
[2023-07-01] MEDS: Enoxaparin 40 MG/0.4 ML Syringe SC ×2 (08:47→21:40)
--- NOTE | 2023-07-01 10:25 | CASEMGMT ---
VERÓNICA WINTERS Assessment: Face to Face with pt for initial transition planning/care coordination assessment. VERÓNICA WINTERS introduced self and role at [facility], pt voices understanding and consents to assessment. Pt is A&O x4 and answers all questions appropriately at this time. Pt lying in bed with dtr at bedside in no distress. Pt agreeable to assessment with dtr present. Care providers, pharmacy, and demographics verified/updated. Admitting Dx: acute UTI/debility PCP:Ofelia Specialists:[facility], cannot recall name; Roque, rheum; sean Pino Preferred Pharmacy: [facility] Insurance: [employer] [facility] Prescription Benefit: yes LNOK: Sri Bagley, dtr Living Arrangements: Pt lives alone in an apt area by a garage then house with her dtr, son in law and grandchild. It is a single story home with no steps to enter. Pt reports she is typically I in ADL's and denies concerns at home. 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 Pt has transportation home. DME:Denies HHC/SNF: Denies hx of Pt states no concerns with going home at time of dc. She denies need for any therapy and states she will build back her strength indep. Pt states no further concerns/needs. CM to follow. Advised pt to ask CM if any further question/concerns/needs arise, voices understanding. Pt Goal: Home Plan: Home
[2023-07-01] MEDS: Potassium Chloride Oral Tablet 20 MEQ 40 MEQ PO (12:11)
[2023-07-01] MEDS: Furosemide 40 MG Tablet PO (12:11)
[2023-07-01] MEDS: Acetaminophen 325 MG Tablet 650 MG PO ×2 (14:29→21:46)
--- NOTE | 2023-07-01 16:59 | PCM.HOSP.N ---
Hospitalist Note Patient was seen and examined today, she states she feels better today, she has had some right flank pain but is presently not there. 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 Patient does not look toxic. Will continue present antibiotic coverage and await sensitivity results. Patient was placed back on her Lasix. Patient has had both ESBL E. coli and E. coli that was pansensitive on 2 of her past urine samples. If patient continues to run a temperature tomorrow I will entertain switching to meropenem to cover ESBL E. coli.
--- NOTE | 2023-07-01 19:45 | CPS ---
[1920] Pt. politely refused use of CPAP we could offer her at this time. Pt. agreeable to wear 2L NC for comfort while she sleeps tonight.
[2023-07-01] MEDS: Ceftriaxone 1 GM/50 ML BAG IV (21:40)
[2023-07-02] VITALS (8 sets, daily range): BP systolic 120–156; BP diastolic 58–64; PULSE 60–80; RESP 16–20; TEMP 36.7–36.8; O2SAT 94–98
[2023-07-02] MEDS: Thyroid 60 MG Tablet 90 MG PO (05:26)
[2023-07-02] MEDS: Nystatin Powder 15gm Bottle 1 APPLIC TOPICAL ×2 (05:28→13:35)
[2023-07-02] MEDS: MENTHOL 226.8 GM JAR 1 APPLIC TOPICAL (05:28)
[2023-07-02 07:47] LABS: Anion Gap 2 (5-15); BUN 11 mg/dL (7-18); BUN/Creat Ratio 19.2 RATIO (10-20); Calcium,Total 8.5 mg/dL (8.5-10.1); Chloride 112 mmol/L (98-107); Creatinine, Serum 0.57 mg/dL (0.55-1.02); EST Glomerular Filtration Rate 111 mL/min (>60); Est Glom Filt Rate - Afr Amer 135 mL/min (>60); Estimated Creatinine Clearance 78.55 ml/min; Glucose 102 mg/dL (74-106); Sodium Level 140 mmol/L (136-145)
[2023-07-02] MEDS: Hydroxychloroquine 200 MG Tablet PO ×2 (07:49→17:19)
[2023-07-02] MEDS: Enoxaparin 40 MG/0.4 ML Syringe SC (07:49)
[2023-07-02] MEDS: Furosemide 40 MG Tablet PO (07:49)
[2023-07-02] MEDS: Multivitamins,Therapeutic Tablet 1 TABLET PO (07:50)
[2023-07-02] MEDS: Folic Acid 1 MG Tablet 2 MG PO (07:50)
[2023-07-02] MEDS: Potassium Chloride Oral Tablet 20 MEQ PO (07:50)
[2023-07-02] MEDS: Aspirin E.C. 81 MG Tablet 243 MG PO (07:50)
[2023-07-02] MEDS: Metoprolol Tartrate 25 MG Tablet 12.5 MG PO (09:41)
--- NOTE | 2023-07-02 12:04 | CT_ITS ---
STUDY: CT ABDOMEN AND PELVIS WITH CONTRAST REASON FOR EXAM: Female, 67 years old. abdominal pain -- with IV and P.O. contrast RADIATION DOSAGE (If Supplied By Facility): CTDIvol = ( 24.15 ) mGy, DLP = ( 1318.14 ) mGycm TECHNIQUE: Transaxial images were obtained from the dome of the diaphragm to the symphysis pubis with oral contrast. Oral and amp; IV Gastrografin and amp; 100mL Isovue-370 was administered. Sagittal and coronal images were reconstructed. Individualized dose optimization techniques were used for this CT. COMPARISON: None. FINDINGS: The visualized lung bases are unremarkable. The visualized portions of the heart are within normal limits. Normal liver. There is non-visualization of the gallbladder, which may be secondary to either contraction or a prior cholecystectomy. Normal spleen. Normal pancreas. Normal bilateral adrenal glands. Normal-appearing left kidney. The right kidney shows mild hydronephrosis and hydroureter with perinephric and periureteral inflammatory stranding. However, there are no calcifications identified within the right ureter. All calcifications along its course and appear to be extrinsic. Findings could be due to a nonradiopaque stone or recently passed stone. There is a small hiatal hernia. Normal small intestine. Normal colon. There is non-visualization of the appendix. There is diffuse atherosclerotic calcification of the abdominal aorta, without a demonstrated aneurysm. Normal inferior vena cava. Normal retroperitoneum. Normal urinary bladder. There is absence of the uterus consistent with a prior hysterectomy. Normal abdominal wall. Degenerative changes noted throughout the lumbar spine and pelvis. A grade 1 spondylolisthesis at L4-5 has been stabilized with pedicle screw fusion surgery CT/Abdomen/Pelvis WITH Contrast IMPRESSION: Mild right hydronephrosis and hydroureter with perinephric and periureteral inflammatory stranding. No obstructing stone is identified. Findings could be due to recent passage of a stone or nonradiopaque stone. Small hiatal hernia No free intraperitoneal fluid, air, or suspicious adenopathy Degenerative and post surgical changes in the lumbar spine Electronically Signed: Gerard Patricia MD at 15:43 EST ,
--- NOTE | 2023-07-02 12:09 | DCINST_ITS ---
Discharge Instructions Diet Discharge Diet: No restrictions Activity Discharge Activity: Return to Normal Activity Weight Bearing Status: Full weight bearing Follow Up Care Test Results: Test results from this visit will be discussed in further detail at your follow- up appointment, if applicable. Discharge Plan Admission Admit Date/Time: 07/01/23 00:12 Primary Reason for Your Visit: bladder infection Attending Provider: Rahat Mitchell Primary Care Provider: Polina Gilbert Consulting Providers: Amanda Hinojosa; Percy Rasheed Discharge Orders/Prescriptions Prescriptions: New potassium chloride 20 mEq Tablet,Er Particles/Crystals 20 meq PO DAILYCM Qty: 30 0RF nystatin [Nyamyc] 100,000 unit/gram Powder 1 applic topical TID Qty: 0 0RF Protocol: *Topical Application Instructions APPLICATION INSTRUCTIONS: folds and groin cephalexin 500 mg capsule 500 mg PO TID Qty: 15 0RF Rx Instructions: start on 07/03/23 Continued multivitamin Tablet 1 tab PO DAILY metoprolol tartrate 25 mg tablet 12.5 mg PO BID methotrexate sodium 2.5 MG tablet 8 tab PO QWEEK Patient Comments: TAKE EIGHT TABLETS BY MOUTH ONCE EVERY WEEK Rx Instructions: takes on Sundays if NO S/Sx of infections folic acid 1 MG tablet 2 tab PO DAILY Patient Comments: TAKE TWO TABLETS BY MOUTH DAILY hydroxychloroquine 200 MG tablet 1 tab PO BID Patient Comments: TAKE ONE TABLET BY MOUTH TWICE DAILY thyroid (pork) [[place] Thyroid] 90 MG tablet 90 mg PO DAILY Patient Comments: TAKE ONE TABLET BY MOUTH EVERY DAY nitroglycerin 0.4 mg Tablet, Sublingual 0.4 mg sublingual Q5M PRN (Reason: Cardiac/Chest Pain) Qty: 30 0RF aspirin 81 mg tablet,delayed release (DR/EC) 243 mg PO DAILY furosemide 40 mg tablet 40 mg PO BID Qty: 180 3RF Referrals / Follow Up: Lobo Bran MD [Med Staff - Active Staff] - See Referral Note (You may follow-up with Dr. Bran if you wish, call his office for an appointment, this is regarding your findings on the CAT scan) Polina Gilbert DO [Primary Care Provider] - Within 2 Weeks Disposition Disposition (needs filled in before D/C Order can be placed): Home, Self Care
--- NOTE | 2023-07-02 16:04 | PCM.DC.SUM ---
Providers Date of Admission: 07/01/23 Date of Discharge: 07/02/23 Primary Care Physician: Dr. Polina Gilbert DO Reason For Visit: ACUTE UTI/DEBILITY Diagnosis Discharge Diagnosis (1) Acute encephalopathy: Status: Acute Code(s): G93.40 - Encephalopathy, unspecified (2) UTI (urinary tract infection): Status: Acute Code(s): N39.0 - Urinary tract infection, site not specified (3) Debility: Status: Acute Code(s): R53.81 - Other malaise (4) Generalized weakness: Status: Acute Code(s): R53.1 - Weakness (5) Anemia: Status: Acute Code(s): D64.9 - Anemia, unspecified (6) Hyperglycemia: Status: Acute Code(s): R73.9 - Hyperglycemia, unspecified Plan 1. Acute encephalopathy secondary to acute cystitis #2 acute cystitis secondary to E. coli #3 morbid obesity #4 mild right hydronephrosis and right hydroureter-etiology unclear #5 essential hypertension Medications at Discharge Home Medications folic acid 1 mg tablet 2 tab PO DAILY SUPPLEMENT 12/29/18 hydroxychloroquine 200 mg tablet 1 tab PO BID 12/29/18 methotrexate sodium 2.5 mg tablet 8 tab PO QWEEK 12/29/18 thyroid (pork) 90 mg tablet ([place] Thyroid) 90 mg PO DAILY THYROID 12/29/18 multivitamin 1 tab PO DAILY 06/12/21 nitroglycerin 0.4 mg sublingual tablet 0.4 mg sublingual Q5M PRN Cardiac/Chest Pain #30 tabs 10/14/22 aspirin 81 mg tablet,delayed release 243 mg PO DAILY HEART HEALTH 11/12/22 furosemide 40 mg tablet 40 mg PO BID FLUID #180 tabs 02/02/23 metoprolol tartrate 25 mg tablet 12.5 mg PO BID 06/22/23 cephalexin 500 mg capsule 500 mg PO TID #15 caps 07/02/23 nystatin 100,000 unit/gram topical powder (Nyamyc) 1 applic topical TID #0 grams 07/02/23 potassium chloride 20 mEq tablet,extended release(part/cryst) 20 meq PO DAILYCM #30 tabs 07/02/23 Hospital Course Operations None Procedures None Summary of Care Provided Minutes Spent on Discharge: 31 Hospital Course: This 65-year-old white female was seen in the emergency room at [facility] with complaints of fever, chills, and weakness, family also stated that the patient appeared confused at home. Workup in the emergency room revealed a normal white blood cell count, hemoglobin was 11.1, chemistry profile was largely unremarkable. Urinalysis revealed Shant positive nitrites, 500 leukocyte esterase, 10-25 WBCs and +2 bacteria. Patient's chest x-ray showed no acute disease. Patient was admitted for acute encephalopathy and cystitis, she was treated with IV Rocephin, urine culture grew out E. coli which was sensitive to multiple antibiotics. Patient improved during her hospital stay, she complained of intermittent right flank pain and I ordered a CT of her abdomen and pelvis with and without IV and oral contrast. CT was unremarkable except for the presence of mild hydronephrosis on the right with mild hydroureter, there was no stones visualized, I went over the films with urology and urology stated it was okay for the patient to follow-up with them as an outpatient and I gave the patient Dr. Bran's contact number. On 07/02/2023, patient was seen and examined: On examination she appeared in good health and spirits, she does not appear to be in any distress. Vital signs as documented. Skin warm and dry and without overt rashes. Neck without JVD, thyroid appears normal, trachea is midline, neck is supple. Lungs clear, normal air movement was noted. Heart exam notable for regular rhythm, normal sounds and absence of murmurs, rubs or gallops. Abdomen unremarkable and without evidence of organomegaly, masses, or abdominal aortic enlargement, bowel sounds are present in all 4 quadrants, no abdominal tenderness was noted. Extremities nonedematous, no cyanosis was noted, no clubbing was noted. Neuro: Cranial nerves II through XII are grossly intact, no focal motor deficits were noted, sensation to light touch and pinprick is intact, motor exam 5/5 throughout. Psych: Patient is alert and oriented x3, she does not appear anxious or depressed, she does not appear agitated. On 07/02/2023, patient was seen and examined and felt to be stable for discharge home. Weight / BMI Weight Weight: 116.573 kg Body Mass Index (BMI) 51.9 ABG / Lab / Microbiology Data 07/01/23 05:25 07/02/23 06:14 Laboratory: Laboratory Results - last 24 hr 07/02/23 06:14: Sodium 140, Potassium 4.0, Chloride 112 H, Carbon Dioxide 26.0, Anion Gap 2 L, BUN 11, Creatinine 0.57, Estim Creat Clear Calc 78.55, Est GFR (MDRD) Af Amer 135, Est GFR (MDRD) Non-Af 111, BUN/Creatinine Ratio 19.2, Glucose 102, Calcium 8.5 Microbiology: Microbiology 06/30/23 21:29 Urine, Random Urine Culture - Final Escherichia coli 06/30/23 21:29 Mucosa - Nose SARS-CoV-2, Influenza & RSV (PCR) - Final Radiography Diagnostic Testing: Radiology Impression Abdomen/Pelvis CT 07/02/23 12:04 IMPRESSION: Mild right hydronephrosis and hydroureter with perinephric and periureteral inflammatory stranding. No obstructing stone is identified. Findings could be due to recent passage of a stone or nonradiopaque stone. Small hiatal hernia No free intraperitoneal fluid, air, or suspicious adenopathy Degenerative and post surgical changes in the lumbar spine Electronically Signed: Gerard Patricia MD at 15:43 EST Reading Location ID and State: [address] [place] [address] , Service support , D/C Instructions Discharge Diet: No restrictions Weight Bearing Status: Full weight bearing Meaningful Use Info Meaningful Use Diagnoses (Choose all that apply): None applicable Discharge Plan Admission Admit Date/Time: 07/01/23 00:12 Primary Reason for Your Visit: bladder infection Attending Provider: Rahat Mitchell Primary Care Provider: Polina Gilbert Consulting Providers: Amanda Hinojosa; Percy Rasheed Discharge Orders/Prescriptions Prescriptions: New potassium chloride 20 mEq Tablet,Er Particles/Crystals 20 meq PO DAILYCM Qty: 30 0RF nystatin [Nyamyc] 100,000 unit/gram Powder 1 applic topical TID Qty: 0 0RF Protocol: *Topical Application Instructions APPLICATION INSTRUCTIONS: folds and groin cephalexin 500 mg capsule 500 mg PO TID Qty: 15 0RF Rx Instructions: start on 07/03/23 Continued multivitamin Tablet 1 tab PO DAILY metoprolol tartrate 25 mg tablet 12.5 mg PO BID methotrexate sodium 2.5 MG tablet 8 tab PO QWEEK Patient Comments: TAKE EIGHT TABLETS BY MOUTH ONCE EVERY WEEK Rx Instructions: takes on Sundays if NO S/Sx of infections folic acid 1 MG tablet 2 tab PO DAILY Patient Comments: TAKE TWO TABLETS BY MOUTH DAILY hydroxychloroquine 200 MG tablet 1 tab PO BID Patient Comments: TAKE ONE TABLET BY MOUTH TWICE DAILY thyroid (pork) [[place] Thyroid] 90 MG tablet 90 mg PO DAILY Patient Comments: TAKE ONE TABLET BY MOUTH EVERY DAY nitroglycerin 0.4 mg Tablet, Sublingual 0.4 mg sublingual Q5M PRN (Reason: Cardiac/Chest Pain) Qty: 30 0RF aspirin 81 mg tablet,delayed release (DR/EC) 243 mg PO DAILY furosemide 40 mg tablet 40 mg PO BID Qty: 180 3RF Referrals / Follow Up: Lobo Bran MD [Med Staff - Active Staff] - See Referral Note (You may follow-up with Dr. Bran if you wish, call his office for an appointment, this is regarding your findings on the CAT scan) Polina Gilbert DO [Primary Care Provider] - Within 2 Weeks Disposition Disposition (needs filled in before D/C Order can be placed): Home, Self Care Charges/Coding Visit Charges Inpatient E&M: 57945 Disch Hosp >30min
[2023-07-02] MEDS: Ceftriaxone 1 GM/50 ML BAG IV (17:17)
[2023-07-02] MEDS: 0.9% Saline Lock 10 ML Syringe IV (17:18)
== END 2023-07-02 18:49 | disposition home or self-care (01) | DRG 689 ==
LOC: ED 07-01 00:47 → MS3 07-01 00:48
PROVIDERS: Admitting Provider Internal Medicine; Emergency Provider Emergency Medicine; PCP Internal Medicine; Visit Provider Internal Medicine
DX: N13.6 Pyonephrosis (principal); G93.41 Metabolic encephalopathy; Z68.43 Body mass index [BMI] 50.0-59.9, adult; E66.01 Morbid (severe) obesity due to excess calories; M06.9 Rheumatoid arthritis, unspecified; I05.0 Rheumatic mitral stenosis; I10 Essential (primary) hypertension; E03.9 Hypothyroidism, unspecified; D64.9 Anemia, unspecified; I65.23 Occlusion and stenosis of bilateral carotid arteries; E78.5 Hyperlipidemia, unspecified; G47.33 Obstructive sleep apnea (adult) (pediatric); B96.20 Unspecified Escherichia coli [E. coli] as the cause of diseases classified elsewhere; Z11.52 Encounter for screening for COVID-19; R53.1 Weakness; R53.81 Other malaise; R73.9 Hyperglycemia, unspecified; Z79.82 Long term (current) use of aspirin; Z79.899 Other long term (current) drug therapy
CPT/HCPCS: 71046; 74177; 80048; 80053; 81001; 83605; 83735; 84100; 84443; 85025; 87040; 87077; 87086; 87088; 87186; 87631; 94668; 99284; J7030; J7050; Q9967; A4216

== ENCOUNTER → 2023-07-20 | Outpatient (CLI) | payer MEDICARE, SELFPAY ==
--- NOTE | 2023-07-21 | CYSPIN_PTH ---
PATHOLOGY RESULTS PATIENT: ELDA WADDELL LOC: [facility] U#:[id number] AGE/SX: 67/F ROOM: RE07/20/[address]: Dr. Maame Ulloa MD : 1955 BED: DIS: 07/20/2023 SPEC #: [id number] RECD: 07/22/23 06:52 STATUS: PAOLO BROWNING #: [id number] HADLEY: 07/21/23 00:[address]: Maame Ulloa DEPT: CYTOLOGY RECD BY: Tamara Yang ENTERED: 07/22/23 06:53 SP TYPE: CYSPIN FL OTHR DR: Dr. Polina Gilbert, Tissues: Urine Procedures: Pap Stain (control) Special Stain Group II Cytospin Fluid HEADER OPERATION: Not noted PRE-OP DIAGNOSIS: Gross hematuria TISSUE SUBMITTED: Urine for cytology DIAGNOSIS CYTOLOGY Urine for cytology (cytospin): Negative for high-grade urothelial carcinoma (NHGUC), Steph System Category II. Acute inflammation. See comment. SJ:hung 07/25/2023 COMMENT Numerous organisms consistent with bacteria are also noted. Clinical correlation and appropriate follow up are necessary. The Steph System for urine cytology diagnostic categorization was used in the evaluation of this case. CYTOLOGY STUDY Slides are reviewed. CYTOLOGY GROSS Received is 60 ml of yellow cloudy fluid labeled with the patient's name and and designated per the requisition as urine. Submitted for cytology preparation. / hung 07/21/2023 TC:2 CPT: 61190
[2023-07-21 14:38] LABS: Cytology, Body Fluid / CSF SEE PATHOLOGY REPORT
== END | disposition home or self-care (01) ==
LOC: LABSPEC 07-21 14:37
PROVIDERS: PCP Internal Medicine; Visit Provider Urology
DX: R31.0 Gross hematuria (principal)
CPT/HCPCS: 88108; 88313

== ENCOUNTER → 2023-09-09 | Outpatient (CLI) | payer MEDICARE, SELFPAY ==
--- NOTE | 2023-09-09 07:01 | EKG12_ITS ---
Test Reason : PRE-OP Blood Pressure : / mmHG Vent. Rate : 067 BPM Atrial Rate : 067 BPM P-R Int : 160 ms QRS Dur : 084 ms QT Int : 416 ms P-R-T Axes : 056 011 000 degrees QTc Int : 439 ms Normal sinus rhythm Nonspecific ST abnormality Abnormal ECG Confirmed by Miguel Ángle Van ([id number]), metropolitan editor SERA MAN ([id number]) on 09/09/2023 1:31:14 PM Referred By: Maame Ulloa Confirmed By:Miguel Ángel Van
[2023-09-09 08:45] LABS: Hemoglobin 12.2 g/dL (12.0-15.0); Mean Corpuscular Hgb 30.3 pg (27.0-32.0); Mean Platelet Vol. 9.8 fl (6.2-12.0); Platelet Count 217 K/mm3 (150-450); RBC Distribution Width CV 14.6 % (11.6-14.6); RBC Distribution Width SD 49.4 fl (35.1-43.9); Red Blood Count 4.02 M/mm3 (4.2-5.4); White Blood Count 4.7 K/mm3 (4.4-11.0)
[2023-09-09 09:28] LABS: Anion Gap 4 (5-15); BUN 13 mg/dL (7-18); BUN/Creat Ratio 18.9 RATIO (10-20); Calcium,Total 9.3 mg/dL (8.5-10.1); Chloride 110 mmol/L (98-107); Creatinine, Serum 0.69 mg/dL (0.55-1.02); EST Glomerular Filtration Rate 90 mL/min (>60); Est Glom Filt Rate - Afr Amer 109 mL/min (>60); Glucose 106 mg/dL (74-106); Potassium 3.7 mmol/L (3.5-5.1); Sodium Level 140 mmol/L (136-145)
== END | disposition home or self-care (01) ==
LOC: SDC 01-24 08:39
PROVIDERS: PCP Internal Medicine; Referring Provider Urology; Visit Provider Urology
DX: Z01.818 Encounter for other preprocedural examination (principal); Z01.810 Encounter for preprocedural cardiovascular examination
CPT/HCPCS: 36415; 80048; 85027; 93005

== ENCOUNTER 2023-09-26 09:06 | Emergency (ER) | payer MEDICARE, SELFPAY ==
[2023-09-26 09:07] VITALS: BP 102/84; PULSE 65; RESP 18; TEMP 36.1; O2SAT 99; BMI 49.6
--- NOTE | 2023-09-26 09:21 | CT_ITS ---
STUDY: CT BRAIN WITHOUT CONTRAST REASON FOR EXAM: Female, 67 years old. Head injury RADIATION DOSAGE (If Supplied By Facility): CTDIvol = ( 44.99 ) mGy, DLP = ( 762.36 ) mGycm TECHNIQUE: Transaxial CT imaging of the brain was performed without administration of intravenous contrast material. Individualized dose optimization techniques were used for this CT. COMPARISON: Comparison is made with prior study dated November 12, 2019. FINDINGS: Scalp hematoma and laceration overlying the right frontal parietal bones. Normal calvarium. There is mild cerebral atrophy with widening of the extra-axial spaces and ventricular dilatation. Normal white matter tracts of the cerebral hemispheres. Normal basal ganglia and thalami. Normal brainstem. Normal cerebellum. There is no intracranial hemorrhage. There are no findings of an acute ischemic infarction. Normal visualized paranasal sinuses. CT/Brain/Head without Contrast IMPRESSION: Chronic involutional changes of the brain. Scalp hematoma and laceration overlying the right frontal parietal bones. Electronically Signed: Corbin Zelaya MD at 10:28 EDT ,
--- NOTE | 2023-09-26 09:27 | EDS_ITS ---
HPI History of Present Illness Chief Complaint: Head Injury Detail of Chief Complaint: Head injury Informant: patient Narrative Narrative: Patient presents the emergency department complaint of a head injury that occurred this morning. Patient states that she was walking barefoot on concrete and she think she may have slipped and when she fell she hit her head on a metal door causing a laceration to her head and forehead. Patient denies loss of consciousness. She denies neck pain. Has been ambulatory. She is not on blood thinners. [facility] Medical History (Updated 09/26/23 @ 11:[address] Serena Joel, ) Anemia BMI 45.0-49.9, adult Cardiology follow-up encounter Congestive heart failure (CHF) CPAP (continuous positive airway pressure) dependence Debility Essential hypertension Generalized weakness History of echocardiogram History of edema History of left heart catheterization (10/03/13) History of stress test Hyperglycemia Hyperlipidemia Hypothyroidism Lupus Mitral valve stenosis Morbid obesity Non-smoker LUIZA on CPAP Osteoarthritis of right knee Other spondylosis, lumbosacral region Post-menopausal Recurrent UTI Rheumatoid arthritis Shortness of breath on exertion TIA (transient ischemic attack) Unstable angina UTI (urinary tract infection) Wears dentures Wears glasses Home Medications folic acid 1 mg tablet 2 tab PO DAILY SUPPLEMENT 12/29/18 [History Last Taken 10/12/22] hydroxychloroquine 200 mg tablet 1 tab PO BID 12/29/18 [History Last Taken 10/13/22] methotrexate sodium 2.5 mg tablet 8 tab PO QWEEK 12/29/18 [History Last Taken 10/03/22] thyroid (pork) 90 mg tablet (Topmost Thyroid) 90 mg PO DAILY THYROID 12/29/18 [History Last Taken 10/13/22] multivitamin 1 tab PO DAILY 06/12/21 [History Last Taken 10/12/22] nitroglycerin 0.4 mg sublingual tablet 0.4 mg sublingual Q5M PRN Cardiac/Chest Pain #30 tabs 10/14/22 [Rx Last Taken Unknown] aspirin 81 mg tablet,delayed release 81 mg PO DAILY HEART HEALTH 11/12/22 [History Last Taken Unknown] furosemide 40 mg tablet 40 mg PO BID FLUID #180 tabs 02/02/23 [Rx Last Taken Unknown] metoprolol tartrate 25 mg tablet 12.5 mg PO BID 06/22/23 [History Last Taken Unknown] potassium chloride 20 mEq tablet,extended release(part/cryst) 20 meq PO DAILYCM #30 tabs 07/02/23 [Rx Last Taken Unknown] cephalexin 250 mg capsule 250 mg PO QHS 09/02/23 [History Last Taken Unknown] Allergy/AdvReac Type Severity Reaction Status Date / Time nitrofurantoin Allergy Unknown UNKNOWN Verified 09/26/23 09:07 [From Macrobid] amoxicillin Allergy Rash Verified 09/26/23 09:07 losartan AdvReac Intermediate Hypotension Verified 09/26/23 09:07 and dizzy even on 12.5 mg Family History Mother CVA (cerebral vascular accident) Thyroid disorder Father Heart disease Diabetes Grandmother Cancer Surgical History H/O oophorectomy History of hysterectomy (~1981) History of lumbar spinal fusion (03/14/19) Hx laparoscopic cholecystectomy Hx of appendectomy Hx of tonsillectomy Social History Smoking Status: Never smoker alcohol intake: never substance use type: does not use caffeine: Yes Type: coffee Number of servings: 1 ROS ROS ED Review of Systems ROS Unobtainable: other Constitutional Constitutional ED: Reports lethargy; Denies chills, fever(s), sweats or weight loss Eyes Eyes: Denies blurry vision, change in vision or diplopia ENT ENT ED: Reports other Details: Forehead laceration ; Denies rhinorrhea or sore throat Cardiovascular Cardiovascular: Denies chest pain, orthopnea or racing heartbeat Respiratory/Chest Respiratory/Chest: Reports dyspnea and dyspnea on exertion; Denies cough, orthopnea or sputum Gastrointestinal Gastrointestinal: Denies abdominal pain, diarrhea, nausea or vomiting Genitourinary Genitourinary ED: Denies dysuria, hematuria or urinary frequency Musculoskeletal Musculoskeletal: Denies arthralgias, back pain, myalgias or neck pain Integumentary Denies abscess, Abrasions or rash Neurologic Neurologic: Denies headache(s) or weakness Psychiatric Psychiatric: Denies anxiety, depression or suicidal thoughts Endocrine Endocrinology: Denies polydipsia, polyphagia or polyuria Hematologic/Lymphatic Hematologic/Lymphatic: Denies easy bleeding, easy bruising or lymphadenopathy Allergic/Immunologic Allergic/Immunologic ED: Denies mouth swelling, tongue swelling or urticaria EXAM Physical Exam Const Vital Signs: 09/26/23 09:07 09/26/23 09:36 09/26/23 10:40 Temperature 97 F L Temperature Source Temporal Pulse Rate 65 Respiratory Rate 18 Respiratory Effort Normal Blood Pressure 102/84 H Blood Pressure Mean 90 Pulse Ox 99 99 Oxygen Delivery Method Room Air Oxygen Flow Rate (L/min) 09/26/23 11:00 Temperature Temperature Source Pulse Rate 73 Respiratory Rate 11 L Respiratory Effort Blood Pressure 140/55 H Blood Pressure Mean 83 Pulse Ox 99 Oxygen Delivery Method Nasal Cannula Oxygen Flow Rate (L/min) 4 Positive well nourished and well developed General Appearance ED: well developed and NAD HEENT Reports TM's clear and moist mucous membranes HEENT Narrative: Patient is a 10 cm laceration over the right forehead extending to the frontal scalp. No bony step-offs or depressions. No significant bleeding. normocephalic and atraumatic; Negative for trauma or tenderness Tympanic Membrane ED: Yes TM's clear Eyes PERRL and EOMs intact bilaterally General Eye ED: Negative for pale conjunctiva or scleral icterus Neck no lymphadenopathy, supple and no JVD Neck Narrative: No C-spine tenderness on palpation. General: Negative for tenderness Chest Wall inspection of chest normal and palpation of chest normal Chest: Negative for tenderness Resp normal respiratory effort and clear to auscultation bilaterally Effort and Inspection: Negative for respiratory distress or pain with movement Auscultation: Negative for rhonchi, wheezes or diminished lung sounds Cardio regular rate, regular rhythm, S1 normal heart sound, S2 normal heart sound and no murmurs Peripheral Pulses: pulses 2+ throughout GI normal to inspection, nondistended, normoactive bowel sounds, soft to palpation, non-tender, non-distended and no masses Back/Spine no CVA tenderness and no thoracic nor lumbar tenderness Extremity normal to inspection General Extremety ED: Negative for edema General Extremity: Negative for edema Neuro oriented x3, CN's II-XII intact bilaterally, no sensory deficits noted and gait normal Sensorium / Orientation: awake, alert, oriented to person, oriented to place and oriented to time Motor Exam: strength 5/5 throughout and strength abnormal Psych mental status grossly normal Skin no rashes or lesions noted and no wounds PROC Procedures Lacerations Forehead/scalp laceration: Length: 3.94 in Depth: Sub Q Shape: Linear Prep: Sterile Conditions Laceration repair: Irrigated, Lidocaine with epi, Local and Skin sutures Irrigated (ml): 100 Number of Sutures/[place]: 16 Suture Information: Ethilon, Simple and 5-0 MDM MDM MDM Narrative Medical decision making narrative: Patient presents with fall and laceration to his scalp and forehead. No loss consciousness. CT scan of the brain without contrast was obtained and showed scalp hematoma and laceration overlying right frontal parietal bones. Patient required suture repair please see procedure note. Patient tolerated procedure well. Advised to have sutures removed in 10 days. To return if increasing pain, redness, swelling, purulent drainage, or condition worsening way. Radiography Diagnostic Testing: Clinical Impression(s) from Imaging Studies Brain CT 09/26/23 09:21 IMPRESSION: Chronic involutional changes of the brain. Scalp hematoma and laceration overlying the right frontal parietal bones. Electronically Signed: Corbin Zelaya MD at 10:28 EDT , Discharge Plan Triage Chief Complaint: Head Injury ED Provider: Serena Joel Dx/Rx/DC Orders Clinical Impression: Closed head injury, Laceration of scalp Instructions: ED Head Injury (Adult), ED Laceration, All Closures Prescriptions: No Action multivitamin Tablet 1 tab PO DAILY metoprolol tartrate 25 mg tablet 12.5 mg PO BID methotrexate sodium 2.5 MG tablet 8 tab PO QWEEK Patient Comments: TAKE EIGHT TABLETS BY MOUTH ONCE EVERY WEEK Rx Instructions: takes on Sundays if NO S/Sx of infections folic acid 1 MG tablet 2 tab PO DAILY Patient Comments: TAKE TWO TABLETS BY MOUTH DAILY hydroxychloroquine 200 MG tablet 1 tab PO BID Patient Comments: TAKE ONE TABLET BY MOUTH TWICE DAILY thyroid (pork) [Topmost Thyroid] 90 MG tablet 90 mg PO DAILY Patient Comments: TAKE ONE TABLET BY MOUTH EVERY DAY nitroglycerin 0.4 mg Tablet, Sublingual 0.4 mg sublingual Q5M PRN (Reason: Cardiac/Chest Pain) Qty: 30 0RF aspirin 81 mg tablet,delayed release (DR/EC) 81 mg PO DAILY potassium chloride 20 mEq Tablet,Er Particles/Crystals 20 meq PO DAILYCM Qty: 30 0RF cephalexin 250 mg capsule 250 mg PO QHS furosemide 40 mg tablet 40 mg PO BID Qty: 180 3RF Primary Care Provider: Polina Gilbert Referrals: Polina Gilbert DO [Primary Care Provider] - 10 Day for suture removal Disposition Disposition: Home, Self Care
[2023-09-26] MEDS: Diphth,Pertuss(Acell),Tet Vac 0.5 ML Vial IM (09:29)
[2023-09-26] MEDS: Lidocaine 1% /Epi 1:100 (20ml) 20 ML Vial 10 ML INFILT (09:29)
[2023-09-26 10:40] VITALS: O2SAT 99
[2023-09-26 11:00] VITALS: BP 110/70; PULSE 72; RESP 16; O2SAT 99
[2023-09-26 11:22] VITALS: BP 141/52; PULSE 70; RESP 16; TEMP 36.8; O2SAT 97
== END 2023-09-26 11:23 | disposition home or self-care (01) ==
PROVIDERS: Emergency Provider Emergency Medicine; PCP Internal Medicine; Visit Provider Emergency Medicine
DX: S01.01XA Laceration without foreign body of scalp, initial encounter (principal); I10 Essential (primary) hypertension; E78.5 Hyperlipidemia, unspecified; W01.0XXA Fall on same level from slipping, tripping and stumbling without subsequent striking against object, initial encounter; Z23 Encounter for immunization
CPT/HCPCS: 12004; 70450; 90471; 90715; 99283

== ENCOUNTER → 2023-10-04 | Outpatient (CLI) | payer MEDICARE, SELFPAY ==
--- NOTE | 2023-10-04 18:39 | CT_ITS ---
EXAM: CT ABDOMEN AND PELVIS WITHOUT AND WITH INTRAVENOUS CONTRAST CLINICAL INDICATION: Right hydronephrosis, UTI TECHNIQUE: Helically acquired images were obtained of the abdomen and pelvis without and with intravenous contrast. This CT exam was performed using one or more of the following dose reduction techniques: automated exposure control, adjustment of the mA and/or kV according to patient size, and/or use of iterative reconstruction technique. CONTRAST: 100ml-ISOVUE 300 RADIATION DOSE: CTDIvol = 27.67 mGy, DLP = 4179.56 mGy-cm. COMPARISON: July 02, 2023 FINDINGS: LOWER THORAX: Mitral valve annular calcification. Normal heart size. Lung bases are clear. No significant pericardial effusion. ABDOMEN: LIVER: Unremarkable. Homogeneous. No focal mass. GALLBLADDER AND BILE DUCTS: Cholecystectomy clips. The common duct is 1 cm, similar to prior exam. PANCREAS: Unremarkable. No focal cystic or solid mass. SPLEEN: Unremarkable. Normal size without focal cystic or solid mass. ADRENALS: Unremarkable. No nodules. KIDNEYS AND URETERS: Unremarkable. Normal renal size and position. No hydronephrosis. STOMACH AND BOWEL: There is mild mixed density material and gas in the stomach. Mild fluid and gas small bowel. Moderate stool in the proximal half of the colon. Mild gas in most distal colon. Mild gas and minimal stool in the distal sigmoid and rectum. Mild sigmoid diverticulosis, no evidence of acute diverticulitis. Mild diverticulosis in the proximal half of the colon. No stomach or bowel distention. PELVIS: APPENDIX: Nonvisualized appendix. No pericecal inflammation. BLADDER: Mildly thick-walled but minimally distended urinary bladder. REPRODUCTIVE: Hysterectomy. ABDOMEN and PELVIS: INTRAPERITONEAL SPACE: Unremarkable. No ascites or other fluid collection. No free air. BONES/JOINTS: Postoperative changes at L4-5 with mild grade 1 L4 anterolisthesis. No nahomy bone destruction sliding irregular contour of the tip of the coccyx with chronic-appearing fracture between the first and second coccyx fibrous union and mild posterior displacement of the distal coccyx, stable from prior exam. No suspicious lytic or blastic abnormality. SOFT TISSUES: Mild complex periumbilical region, motion artifacts fat-containing hernia and presumed scarring. VASCULATURE: Atherosclerotic calcification of aortoiliac vessels and at the origins of the intra-abdominal arteries. No aneurysm, dissection or high-grade stenosis. LYMPH NODES: Unremarkable. No enlarged lymph nodes. CT/CT Abd/Pelvis W/WO Contrast IMPRESSION: 1. Normal symmetric renal enhancement and excretion. Multiple phleboliths in the pelvis. No convincing ureter stone. No hydronephrosis. 2. Mildly thick-walled but minimally distended urinary bladder, correlate with any evidence of cystitis. 3. Cholecystectomy. Hysterectomy. Postoperative spine changes. 4. Mild diverticulosis. Nonvisualized appendix. No evidence of acute diverticulitis or appendicitis. 5. Moderate stool in the proximal half of the colon. Electronically Signed: Ilda Boo MD at 5:46 EDT ,
== END | disposition home or self-care (01) ==
LOC: CT 18:36
PROVIDERS: PCP Internal Medicine; Referring Provider Urology; Visit Provider Urology
DX: N13.30 Unspecified hydronephrosis (principal); N39.0 Urinary tract infection, site not specified
CPT/HCPCS: 74178; Q9967

== ENCOUNTER → 2023-10-05 | Outpatient (CLI) | payer MEDICARE, SELFPAY ==
--- NOTE | 2023-10-05 16:55 | RAD_ITS ---
STUDY: X-RAY - LEFT KNEE REASON FOR EXAM: Female, 68 years old. Acute pain. TECHNIQUE: 4 view(s) of the knee. COMPARISON: None. FINDINGS: Osteopenia. Superior patellar spur. Moderate medial compartmental arthrosis with osteophytes. Normal lateral compartment. Lateral tilt and subluxation of the patella with moderate arthrosis of the lateral patellofemoral compartment Suprapatellar joint effusion. RAD/Knee 4 or More Views IMPRESSION: Osteopenia with medial and patellofemoral compartmental arthrosis with joint effusion. Electronically Signed: Kvng Cain MD at 14:27 EDT ,
== END | disposition home or self-care (01) ==
LOC: MTRAD 16:49
PROVIDERS: PCP Internal Medicine; Referring Provider Internal Medicine; Visit Provider Internal Medicine
DX: M25.562 Pain in left knee (principal)
CPT/HCPCS: 73564

== ENCOUNTER → 2023-10-12 | Outpatient (CLI) | payer MEDICARE, SELFPAY ==
--- NOTE | 2023-10-12 10:02 | CT_ITS ---
STUDY: CT LEFT KNEE WITHOUT CONTRAST REASON FOR EXAM: Female, 68 years old. Pain. RADIATION DOSAGE (If Supplied By Facility): CTDIvol = ( 16.56 ) mGy, DLP = ( 489.37 ) mGycm TECHNIQUE: Transaxial CT imaging of the left knee was performed. Coronal and sagittal images were reformatted. Individualized dose optimization techniques were used for this CT. COMPARISON: Left knee radiographs dated 10/05/2023 and 10/12/2023. FINDINGS: There is moderate degenerative arthrosis of the medial femorotibial compartment with moderate joint space narrowing, marginal osteophyte formation, and subchondral sclerosis. Intact medial femoral condyle and medial tibial plateau. There is mild degenerative arthrosis of the lateral femorotibial compartment with small marginal osteophyte formation. Intact lateral femoral condyle and lateral tibial plateau. There is moderate degenerative arthrosis of the patellofemoral compartment with moderate joint space narrowing and marginal osteophyte formation. There is lateral patellar subluxation. Normal proximal tibiofibular articulation. There is a small to moderate joint effusion. There is no significant popliteal cyst. The quadriceps tendon is grossly normal. The patellar tendon is grossly normal. Normal Hoffa''s fat pad. The soft tissues are unremarkable. CT/Extremity Lower without Contra IMPRESSION: Tricompartment degenerative arthrosis, most pronounced in the patellofemoral and medial femorotibial compartments. Lateral patellar subluxation. Small to moderate knee joint effusion. Electronically Signed: Juve Hinojosa MD at 10:31 EDT ,
== END | disposition home or self-care (01) ==
LOC: CT 09:59
PROVIDERS: PCP Internal Medicine; Referring Provider Orthopaedic Surgery; Visit Provider Orthopaedic Surgery
DX: S82.143A Displaced bicondylar fracture of unspecified tibia, initial encounter for closed fracture (principal); X58.XXXA Exposure to other specified factors, initial encounter
CPT/HCPCS: 73700

== ENCOUNTER → 2024-02-15 | Outpatient (CLI) | payer MEDICARE, SELFPAY ==
--- NOTE | 2024-02-15 10:14 | BI_ITS ---
MAMMOGRAPHY - BILATERAL SCREENING REASON FOR EXAM: Female, 68 years old. Routine annual screening examination. PERTINENT HISTORY: Non-contributory. TECHNIQUE: Digital bilateral breast john (3D mammographic acquisition) in the CC and MLO projections. 2-D mediolateral oblique (MLO) and craniocaudad (CC) views of both breasts were obtained. CAD: Full Field Digital Mammography with Computer Added Detection was performed. COMPARISON: Comparison is made with prior study January 02, 2020. FINDINGS: Breast Composition: There are scattered areas of fibroglandular density. There are no dominant masses or suspicious calcifications. No other significant abnormalities are identified. There has been no significant change since the prior study. BI/SCRN MAMM (CAD)W/JOHN BILAT IMPRESSION: Stable bilateral screening mammogram. Yearly follow-up mammogram recommended. (A) ASSESSMENT CATEGORY: BIRADS Category 1: Negative. A letter regarding these results will be sent to the patient by the facility within 30 days. Approximately 10% of breast cancers are not detected by mammography. A normal mammogram should not delay biopsy of a clinically suspicious abnormality. [id number] Electronically Signed: Corbin Zelaya MD at 11:05 EDT ,
--- NOTE | 2024-02-15 10:21 | BD_ITS ---
STUDY: DUAL ENERGY X-RAY ABSORPTIOMETRY / DXA REASON FOR EXAM: Female, 68 years old. [id number] TECHNIQUE: Bone Mineral Density (BMD) measurements of both forearms were obtained. COMPARISON: Comparison is made with prior study dated the January 02, 2020. FINDINGS: Right Forearm: g/cm2 (0.459) / T-score (-2.2) / Z-score (-0.3) Left Forearm: g/cm2 (0.473) / T-score (-2.0) / Z-score (0.0) BD/Dexa Bone Density/Append Skel IMPRESSION: The patient is considered osteopenic as outlined below according to World Jam Organization (WHO) criteria with a high fracture risk. There has been worsening of bone density since the previous examination. Reference Information: The T-score is the number of standard deviations above or below the standard which is normal for young adults at their peak bone mineral density. The World Health Organization (WHO) interprets the T-scores as follows: Above -1 Normal bone density Between -1 and -2.5 Osteopenia Equal to / or below -2.5 Osteoporosis As a practical clinical guideline, osteopenia may be graded as follows: Mild -1 through -1.5 Moderate -1.6 through -2.0 Severe -2.1 through -2.4 The Z-score is the number of standard deviations above or below age-matched controls. A Z-score of less than -1.5 would be considered abnormal. References: 1. NIH Osteoporosis and Related Bone Diseases www osteo.org 2. International Society for Clinical Densitometry www iscd.org 3. National Osteoporosis Foundation www nof.org Electronically Signed: Corbin Zelaya MD at 9:41 EDT ,
== END | disposition home or self-care (01) ==
LOC: OPBD 10:12
PROVIDERS: PCP Internal Medicine; Referring Provider Internal Medicine; Visit Provider Internal Medicine
DX: Z12.31 Encounter for screening mammogram for malignant neoplasm of breast (principal); Z78.0 Asymptomatic menopausal state
CPT/HCPCS: 77063; 77067; 77081

== ENCOUNTER → 2024-09-20 | Outpatient (CLI) | payer MEDICARE, SELFPAY ==
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
== END | disposition home or self-care (01) ==
LOC: MTRAD 16:52
PROVIDERS: PCP Internal Medicine; Referring Provider Physician Assistant Surgical; Visit Provider Physician Assistant Surgical
DX: S29.9XXA Unspecified injury of thorax, initial encounter (principal); R05.9 Cough, unspecified; X58.XXXA Exposure to other specified factors, initial encounter
CPT/HCPCS: 71046

== ENCOUNTER → 2024-09-21 | Outpatient (CLI) | payer MEDICARE, SELFPAY | END | disposition home or self-care (01) | PROVIDERS: PCP Internal Medicine; Visit Provider Physician Assistant Surgical | DX: R82.90 Unspecified abnormal findings in urine (principal) | CPT/HCPCS: 87077; 87086; 87088; 87186 ==